=== PATIENT | male | born 1935 | race African-American/Black ===

== ENCOUNTER 2016-12-09 13:22 | Emergency (ER) | payer MEDICARE, BC ==
[~2016-12-09] VITALS: Ht 177.8 cm; Wt 75.7 kg
[~2016-12-09 13:22] MED LIST: ACET325T21 PO; ALLO100T PO; AMLO10TA4 PO; AMLO1CAP8 PO; ASPI-482 PO; DILT240C2 PO; FERR-26 PO; GLIP5TAB10 PO; HYDR25TA9 PO; Hydrocodone/Acetaminophen PO; LEVO50TA5 PO; LORA10TA3 PO; MELO15TA6 PO; OMEP20CA9 PO; SILD100T PO; SIMV20TA3 PO; TAMS0.4C2 PO; WARF5TAB PO
--- NOTE | 2016-12-09 14:06 | RAD ---
Portable chest, 12/09/2016: History: Dyspnea Comparison is made to a study from 06/27/2016. The heart size and pulmonary vascularity are normal. There is calcific plaquing of the aortic arch. No pulmonary infiltrates are seen. There is no evidence of pleural fluid. Mild spurring is present in the spine. IMPRESSION: No acute cardiopulmonary abnormality is detected.
[2016-12-09] MEDS ORDERED: SODI30SP NS (14:08)
--- NOTE | 2016-12-09 14:09 | PHYS DOC ---
Past Medical History Past Medical History: Arthritis, Diabetes-Type II Past Surgical History: Other Additional Past Surgical Histo: back, thyroid,KNEE Alcohol Use: None Drug Use: None Adult General Chief Complaint Chief Complaint: SHORTNESS OF BREATH HPI HPI Patient is a 81 year old male who presents with rhinorrhea, nasal congestion, sore throat (not neck pain), dry cough, and difficulty breathing through his nose. He feels there is a hard foreign body in his right nostril, but denies having put anything in the nostril. Denies difficulty breathing through his mouth. Denies fever or chills, myalgia, nausea or vomiting, diarrhea, headache , ear pain. Review of Systems Review of Systems Constitutional: Denies fever or chills [] Eyes: Denies change in visual acuity, redness, or eye pain [] HENT: Has nasal congestion and sore throat [] Respiratory: Has cough and shortness of breath [] Cardiovascular: No additional information not addressed in HPI [] GI: Denies abdominal pain, nausea, vomiting, bloody stools or diarrhea [] : Denies dysuria or hematuria [] Musculoskeletal: Denies back pain or joint pain [] Integument: Denies rash or skin lesions [] Neurologic: Denies headache, focal weakness or sensory changes [] Endocrine: Denies polyuria or polydipsia [] Allergies Allergies Allergies Coded Allergies Type Severity Reaction Last Updated Verified YONG Inhibitors Allergy Intermediate 10/07/14 Yes ARB-Angiotensin Receptor Antagonist Allergy Intermediate 10/07/14 Yes I S O L A T I O N *CONTACT* Allergy Unknown 07/13/16 Yes Physical Exam Physical Exam Constitutional: Well developed, well nourished, no acute distress, non-toxic appearance. [] HENT: Normocephalic, atraumatic, bilateral external ears normal, oropharynx moist, no oral exudates, nose with bilateral clear rhinorrhea and hyperemia. No nasal foreign body seen. [] Eyes: PERRLA, EOMI, conjunctiva normal, no discharge. [] Neck: Normal range of motion, no tenderness, supple, no stridor. [] Cardiovascular:Heart rate regular rhythm [] Lungs & Thorax: Bilateral breath sounds clear to auscultation [] Abdomen: Bowel sounds normal, soft, no tenderness. [] Skin: Warm, dry, no erythema, no rash. [] Back: Normal range of motion. [] Extremities: No tenderness, ROM intact, no edema. [] Neurologic: Alert and oriented X 3, normal motor function, normal sensory function, no focal deficits noted. [] Psychologic: Affect normal, judgement normal, mood normal. [] Current Patient Data Vital Signs Vital Signs Date Time Temp Pulse Resp B/P Pulse Ox O2 Delivery O2 Flow Rate FiO2 12/09/16 14:28 68 24 148/65 100 Room Air 12/09/16 13:28 97.6 97.6 Lab Values Laboratory Tests Test 12/09/16 13:46 Sodium Level 141mmol/L (136-145) Potassium Level 4.3mmol/L (3.5-5.1) Chloride Level 105mmol/L (98-107) Carbon Dioxide Level 29mmol/L (21-32) Anion Gap 7 (6-14) Blood Urea Nitrogen 29mg/dL (8-26) H Creatinine 1.9mg/dL (0.7-1.3) H Estimated GFR (Cockcroft-Gault) 41.2 Glucose Level 126mg/dL (70-99) H Calcium Level 8.9mg/dL (8.5-10.1) Laboratory Tests 12/09/16 13:46 EKG EKG EKG as interpreted by me as sinus rhythm with right bundle branch block, rate 67 , P-R 154, QTc 468, does not meet STEMI criteria, no ectopy Radiology/Procedures Radiology/Procedures Chest xray as interpreted by me with no acute cardiopulmonary disease process Course & Med Decision Making Course & Med Decision Making Workup is unremarkable. Signs and symptoms concerning for viral respiratory infection. Discussed supportive care. Return precautions given. He understands and agrees with plan. Dragon Disclaimer Dragon Disclaimer This electronic medical record was generated, in whole or in part, using a voice recognition dictation system. Departure Departure Impression: Primary Impression: Viral upper respiratory infection Disposition: 01 HOME, SELF-CARE Condition: STABLE Referrals: VINITA WOMACK MD (PCP) Patient Instructions: Upper Respiratory Infection, Adult, [id number] Additional Instructions: Use saline nasal spray to help with nasal congestion. Follow-up with your primary care doctor. Return for any concerns. Scripts Sodium Chloride (Saline Nasal [place])30 Ml Spray1-2 [place] NS Q2HR PRN nasal congestion #30 ML Prov:Leonardo MACARIO MD 12/09/16 Leonardo MACARIO MD Dec 09, 2016 14:08
[2016-12-09 14:13] LABS: CALCIUM 8.9 mg/dL (8.5-10.1); CREATININE 1.9 mg/dL (0.7-1.3); GFR 41.2; POTASSIUM 4.3 mmol/L (3.5-5.1)
[2016-12-09 14:28] VITALS: BP 148/65
--- NOTE | 2016-12-11 11:24 | EKG ---
[facility] [address] [place] [address] Test Date: 2016-12-09 Test Time: 13:38:36 Pat Name: HAIDER CORTES Department: Room: Gender: M Box Person: : 1935 Requested By: Leonardo MACARIO Order Number: [id number] Reading MD: Measurements Intervals [place] Rate: 67 P: -52 NE: 154 QRS: -78 QRSD: 160 T: 49 QT: 440 QTc: 468 Interpretive Statements SINUS RHYTHM ABNORMAL LEFT AXIS DEVIATION S1,S2,S3 PATTERN LEFT ANTERIOR FASCICULAR BLOCK NON SPECIFIC INTRAVENTRICULAR BLOCK RVH WITH REPOLARIZATION ABNORMALITY ABNORMAL ECG RI6.01 No previous ECG available for comparison
== END 2016-12-09 14:34 | disposition home or self-care (01) ==
LOC: ER 13:22
DX: J06.9 Acute upper respiratory infection, unspecified (principal); E11.9 Type 2 diabetes mellitus without complications; M19.90 Unspecified osteoarthritis, unspecified site; Z88.8 Allergy status to other drugs, medicaments and biological substances; Z91.041 Radiographic dye allergy status
CPT/HCPCS: 36415; 71010; 80048; 93005; 99285-25

== ENCOUNTER → 2017-04-11 | Outpatient (CLI) | payer MEDICARE, BC ==
[~2017-04-11] MED LIST changes: +BARIUM SULFATE 40% (APPLE) 148 GM PWD. PO ONE; +SODI30SP NS; +WARF-78 PO; -WARF5TAB PO
--- NOTE | 2017-04-11 14:23 | RAD ---
VIDEO SWALLOW STUDY Reason for Examination: DYSPHAGIA With the patient in the lateral projection, using video observation and recording, the patient was asked to swallow barium liquid, barium nectar, barium impregnated pudding, and chew and swallow barium impregnated fruit cocktail and cracker. Interpretation: A total of 2 minutes of fluoroscopy time were used. 0 fluoroscopic spot images. IMPRESSION: Flash penetration was seen during a thin barium swallow. No evidence of aspiration or deep penetration. Please refer to speech pathology notes for further details.
== END | disposition home or self-care (01) ==
LOC: RAD 12:35
PROVIDERS: ATTEND Otolaryngology
DX: R13.10 Dysphagia, unspecified (principal)
CPT/HCPCS: 74230; 92526; 92611; G8996; G8997; G8998

== ENCOUNTER → 2017-05-12 | Day surgery (SDC) | payer MEDICARE, BC ==
[~2017-05-12] MED LIST changes: -BARIUM SULFATE 40% (APPLE) 148 GM PWD. PO ONE; +IV RINGERS,LACTATED 1000ML 1,000 ML IV SCH; +LIDOCAINE 1% 1 ML SYRINGE. ID PRN; +MIDAZOLAM HCL/PF 2 MG/2 ML VIAL. IV PRN; +MIDAZOLAM HCL/PF 5 MG/5 ML VIAL. ONE; +fentaNYL PF VIAL 100 MCG/2 ML VIAL IV PRN; +fentaNYL PF VIAL 100 MCG/2 ML VIAL ONE
[2017-05-12 09:25] VITALS: BP 135/62
== END | disposition home or self-care (01) ==
LOC: SURG 06:55
PROVIDERS: ATTEND Internal Medicine Gastroenterology
DX: K22.2 Esophageal obstruction (principal); K29.50 Unspecified chronic gastritis without bleeding; E78.00 Pure hypercholesterolemia, unspecified; I10 Essential (primary) hypertension; K21.9 Gastro-esophageal reflux disease without esophagitis; M17.11 Unilateral primary osteoarthritis, right knee; E11.9 Type 2 diabetes mellitus without complications; E03.9 Hypothyroidism, unspecified; F17.200 Nicotine dependence, unspecified, uncomplicated; D64.9 Anemia, unspecified; Z86.69 Personal history of other diseases of the nervous system and sense organs; Z85.46 Personal history of malignant neoplasm of prostate; Z87.39 Personal history of other diseases of the musculoskeletal system and connective tissue; Z96.651 Presence of right artificial knee joint; Z86.39 Personal history of other endocrine, nutritional and metabolic disease; Z86.14 Personal history of Methicillin resistant Staphylococcus aureus infection; Z88.8 Allergy status to other drugs, medicaments and biological substances
CPT/HCPCS: 43235; 43450; 82962; J2250; J3010

== ENCOUNTER → 2017-08-29 | Outpatient (CLI) | payer MEDICARE, BC ==
[2017-05-12 09:25] VITALS: BP 135/62
[~2017-08-29] MED LIST changes: -IV RINGERS,LACTATED 1000ML 1,000 ML IV SCH; -LIDOCAINE 1% 1 ML SYRINGE. ID PRN; -MIDAZOLAM HCL/PF 2 MG/2 ML VIAL. IV PRN; -MIDAZOLAM HCL/PF 5 MG/5 ML VIAL. ONE; -fentaNYL PF VIAL 100 MCG/2 ML VIAL IV PRN; -fentaNYL PF VIAL 100 MCG/2 ML VIAL ONE
--- NOTE | 2017-08-29 15:19 | RAD ---
Left lower extremity bone length exam, 08/29/2017: History: Surgical planning for knee prosthesis AP views of the left femur and lower leg were obtained with skin markers placed laterally to facilitate measurements for surgical planning. This limited exam demonstrates severe degenerative change at the left knee joint with chondrocalcinosis. Moderate arterial calcifications are present.
--- NOTE | 2017-08-30 13:19 | RAD ---
MR of the left knee - Olson and Nephew protocol History: OLSON & NEPHEW KNEE, CHRONIC KNEE PAIN. Preoperative exam. Technique: Images are obtained in accordance with the standard Olson and Nephew protocol. Note this is not a diagnostic exam, but solely for the purpose of [employer] and [employer] medical imaging technician construction. Small joint effusion. Mild fluid dissecting along the posterior knee may be from a tiny Persaud's cyst. Mild soft tissue edema. Primary osteoarthritis is identified at all joint compartments. Degenerative tear of the medial meniscus. Probable lateral meniscal tear. Small soft tissue fluid collection at the anteromedial knee. Electronically signed by: Mega Amato MD (08/30/2017 1:16 PM) [id number]
== END | disposition home or self-care (01) ==
LOC: RAD 11:21
PROVIDERS: ATTEND Orthopaedic Surgery Sports Medicine
DX: Z01.818 Encounter for other preprocedural examination (principal); S83.242A Other tear of medial meniscus, current injury, left knee, initial encounter; M17.12 Unilateral primary osteoarthritis, left knee; X58.XXXA Exposure to other specified factors, initial encounter; Y93.89 Activity, other specified; Y92.89 Other specified places as the place of occurrence of the external cause; Y99.8 Other external cause status
CPT/HCPCS: 73721; 77073

== ENCOUNTER → 2017-08-31 | Outpatient (CLI) | payer MEDICARE, BC ==
[2017-05-12 09:25] VITALS: BP 135/62
--- NOTE | 2017-08-31 15:57 | CARD ---
APPROVED REPORT EXAM: Two-dimensional and M-mode echocardiogram with Doppler and color Doppler. Other Information Quality : FairAverageHR: 64bpm INDICATION Pre-Op 2D DIMENSIONS Left Atrium(2D)2.7 (1.6-4.0cm)IVSd1.2 (0.7-1.1cm) Aortic Root(2D)4.1 (2.0-3.7cm)LVDd5.5 (3.9-5.9cm) LVOT Diameter2.1 (1.8-2.4cm)PWd1.2 (0.7-1.1cm) LVDs4.0 (2.5-4.0cm)FS (%) 26.3 % SV74.3 mlLVEF(%)51.0 (>50%) Aortic Valve AoV Peak Rudi.184.1cm/sAoV VTI42.3cm AO Peak GR.13.6mmHgAO Mean GR.8mmHg Mitral Valve MV E Xxlukjlz92.4cm/sMV E Peak Gr.142mmHg MV DECEL [id number] A Toslcwpw21.7cm/s MV AAB55cvI/A Ratio0.9 MVA (PHT)3.52cm2 Tricuspid Valve TR P. Ogzqfsqo671wb/sRAP TIGUEKCY8kzKa TR Peak Gr.52daBzPADR70lyPb LEFT VENTRICLE The left ventricle is normal size. There is normal left ventricular wall thickness. The systolic func tion is mildly impaired. EF 40-45% The posterolateral segment is mildly hypokinetic. Remainder of the LV is mildly globally hypokinietic. Septal motion suggestive of conduction defect. There is no evide nce of an apical thrombus. RIGHT VENTRICLE The right ventricle is normal size. The right ventricular systolic function is normal. ATRIA The left atrium size is normal. The right atrium size is normal. The interatrial septum is intact wit h no evidence for an atrial septal defect or patent foramen ovale as noted on 2-D or Doppler imaging. AORTIC VALVE The aortic valve is moderately calcified and not well visualized. Doppler and Color Flow revealed mod erate aortic regurgitation. There is no aortic stenosis. MITRAL VALVE The mitral valve is mildly thickened. A borderline mitral valve prolapse is present. Doppler and [place] r-flow revealed moderate mitral regurgitation. TRICUSPID VALVE The tricuspid valve leaflets are thickened , but open well. Doppler and Color Flow revealed mild tric uspid regurgitation. There is mild pulmonary hypertension. The PA pressure was estimated at 42 mmHg. PULMONIC VALVE The pulmonic valve is not visualized very well. Doppler and Color Flow revealed trivial pulmonic valv ular regurgitation. GREAT VESSELS Mildly dilated aortic root. Mildly dilated ascending aorta. 4.2 cm. PERICARDIAL EFFUSION There is no pleural effusion. There is no evidence of significant pericardial effusion. Critical Notification Critical Value: No <Conclusion> The systolic function is mildly impaired. EF 40-45% The posterolateral segment is mildly hypokinetic. Remainder of the LV is mildly globally hypokinietic . Septal motion suggestive of conduction defect. Doppler and Color Flow revealed moderate aortic regurgitation. Doppler and Color-flow revealed moderate mitral regurgitation. Mildly dilated aortic root. Mildly dilated ascending aorta. 4.2 cm.
== END | disposition home or self-care (01) ==
LOC: ECHO 07:48
PROVIDERS: ATTEND Internal Medicine Cardiovascular Disease
DX: I08.3 Combined rheumatic disorders of mitral, aortic and tricuspid valves (principal); I77.810 Thoracic aortic ectasia; I27.20 Pulmonary hypertension, unspecified
CPT/HCPCS: 93306

== ENCOUNTER → 2017-09-12 | Outpatient (CLI) | payer MEDICARE, BC ==
[2017-09-12 12:36] LABS: ADD MAN DIFF? NO
[2017-09-12 12:39] LABS: HEMATOCRIT 34.4 % (39.0-53.0); HEMOGLOBIN 11.3 g/dL (13.0-17.5); MEAN CORPUSCULAR HEMOGLOBIN 31 pg (25-35); MEAN CORPUSCULAR VOLUME 94 fL (79-100); RED BLOOD COUNT 3.65 x10^6/uL (4.30-5.70); WHITE BLOOD COUNT 3.7 x10^3/uL (4.0-11.0)
[2017-09-12 12:40] LABS: BASO % 1 % (0-3); EOS % 3 % (0-3); LYMPH # 1.4 x10^3/uL (1.0-4.8); LYMPH % 38 % (24-48); MEAN CORPUSCULAR HGB CONC 33 g/dL (31-37); MONO % 11 % (0-9); NEUT % 48 % (31-73); PLATELET COUNT 131 x10^3/uL (140-400)
[2017-09-12 12:49] LABS: INR 1.1 (0.8-1.1); PARTIAL THROMBOPLASTIN TIME 28 SEC (24-38); PROTHROMBIN TIME PATIENT 13.4 SEC (11.7-14.0)
[2017-09-12 12:50] LABS: BILIRUBIN,URINE NEGATIVE (NEG); GLUCOSE,URINE NEGATIVE (NEG); NITRITE,URINE NEGATIVE (NEG); PH,URINE 5.5; PROTEIN,URINE NEGATIVE (NEG-TRACE); UROBILINOGEN,URINE 0.2 mg/dL (0.2 mg/dL)
[2017-09-12 12:51] LABS: ALBUMIN 3.9 g/dL (3.4-5.0); ANION GAP 8 (6-14); BLOOD UREA NITROGEN 31 mg/dL (8-26); CALCIUM 8.4 mg/dL (8.5-10.1); CARBON DIOXIDE 26 mmol/L (21-32); CHLORIDE 106 mmol/L (98-107); CREATININE 2.2 mg/dL (0.7-1.3); GFR 34.7; GLUCOSE 102 mg/dL (70-99); POTASSIUM 4.7 mmol/L (3.5-5.1); SODIUM 140 mmol/L (136-145)
[2017-09-12 12:58] LABS: SQUAMOUS EPITHELIAL CELL,UR FEW /LPF
[2017-09-12 12:59] LABS: BACTERIA,URINE FEW /HPF (0-FEW); WBC,URINE OCC /HPF (0-4)
[2017-09-12 14:13] LABS: SEDIMENTATION RATE 10 (0-15)
[2017-09-12 21:17] LABS: MRSA BY PCR Negative (Negative)
== END | disposition home or self-care (01) ==
LOC: SURGPAT 11:34
DX: Z01.818 Encounter for other preprocedural examination (principal); M17.12 Unilateral primary osteoarthritis, left knee; Z96.652 Presence of left artificial knee joint
CPT/HCPCS: 36415; 80048; 81001; 82040; 83036; 85025; 85610; 85651; 85730; 87641

== ENCOUNTER 2017-09-25 05:43 | Inpatient (IN) | payer MEDICARE, BC ==
[2017-09-25 06:58] LABS: POC GLUCOSE 81 mg/dL (70-99)
[2017-09-25] MEDS ORDERED: HYDROmorphone 2 MG/ML VIAL IV (07:00)
[2017-09-25] MEDS ORDERED: PROCHLORPERAZINE 10 MG/2 ML VIAL. IV ×2 (07:00→07:45)
[2017-09-25] MEDS ORDERED: LIDOCAINE 1% PF 2 ML VIAL. ID (07:00)
[2017-09-25] MEDS ORDERED: MORPHINE SULFATE 2 MG/ML DISP.SYRIN. IV ×2 (07:00→07:45)
[2017-09-25] MEDS ORDERED: fentaNYL PF VIAL 100 MCG/2 ML VIAL IV ×4 (07:00→07:45)
[2017-09-25] MEDS: ACETAMINOPHEN 500 MG TABLET PO (07:00)
[2017-09-25] MEDS: MELOXICAM 7.5 MG TABLET PO (07:00)
[2017-09-25] MEDS ORDERED: ONDANSETRON PF 4 MG/2 ML VIAL. IV (07:00)
[2017-09-25] MEDS: IV RINGERS,LACTATED 1000ML 1,000 ML IV (07:06)
[2017-09-25] MEDS ORDERED: ONDANSETRON PF 4 MG/2 ML VIAL. (07:17)
[2017-09-25] MEDS ORDERED: LIDOCAINE 2% PF Vial for OR 5 ML VIAL. (07:17)
[2017-09-25] MEDS ORDERED: PROPOFOL 20 ML IV (07:17)
[2017-09-25] MEDS ORDERED: FAMOTIDINE 20 MG/2 ML VIAL (07:17)
[2017-09-25] MEDS ORDERED: DEXAMETHASONE SOD PHOS 20 MG/5 ML VIAL. (07:17)
[2017-09-25] MEDS ORDERED: fentaNYL PF VIAL 100 MCG/2 ML VIAL (07:18)
[2017-09-25] MEDS ORDERED: ROCURONIUM 50 MG/5 ML VIAL. (07:18)
[2017-09-25] MEDS ORDERED: METOCLOPRAMIDE HCL 10 MG/2 ML VIAL. IV (07:45)
[2017-09-25] MEDS ORDERED: PROCHLORPERAZINE 5 MG TABLET. PO (07:45)
[2017-09-25] MEDS ORDERED: traMADol 50 MG TABLET PO (07:45)
[2017-09-25] MEDS ORDERED: CALCIUM CARBONATE 500 MG TAB.CHEW PO (07:45)
[2017-09-25] MEDS ORDERED: MORPHINE SULFATE 10 MG/ML VIAL. IV (07:45)
[2017-09-25] MEDS ORDERED: ACETAMINOPHEN 325 MG TABLET. PO (07:45)
[2017-09-25] MEDS ORDERED: oxyCODONE/APAP 7.5/325 1 TAB TABLET PO (07:45)
[2017-09-25] MEDS ORDERED: DEXTROSE 50% 25 GM / 50ML DISP.SYRIN. IV ×2 (07:45→08:00)
[2017-09-25] MEDS ORDERED: MORPHINE SULFATE 4 MG/ML DISP.SYRIN. IV ×2 (07:45)
[2017-09-25] MEDS ORDERED: ZOLPIDEM 5 MG TABLET. PO (07:45)
[2017-09-25] MEDS ORDERED: oxyCODONE/APAP 5/325 1 TAB TABLET PO (07:45)
[2017-09-25] MEDS ORDERED: 0.9 % SODIUM CHLORIDE 10 ML DISP.SYRIN. IV (07:45)
[2017-09-25] MEDS ORDERED: diphenhydrAMINE 50 MG/ML VIAL IV (07:45)
[2017-09-25] MEDS ORDERED: HYDROcodone/APAP 10/325 1 TAB TABLET PO (07:45)
[2017-09-25] MEDS ORDERED: GLYCOPYRROLATE 1 MG/5 ML VIAL. (07:53)
[2017-09-25] MEDS ORDERED: ePHEDrine PF IN SALINE 50 MG/5 ML DISP.SYRIN IV (07:58)
[2017-09-25] MEDS: INSULIN ASPART 300 UNITS/3 ML INSULN.PEN SQ ×3 (08:00→17:16)
[2017-09-25] MEDS: MORPHINE SULFATE 5 MG, KETOROLAC 30 MG, ROPIVacaine 0.5% PF 60 ML, EPINEPHrine 0.5 MG i... INT ART (08:06)
[2017-09-25] MEDS ORDERED: NEOSTIGMINE METHYLSULFATE 5 MG/5 ML SYRINGE. (08:59)
[2017-09-25] MEDS ORDERED: SEVOFLURANE 61 TO 120 MINUTES. IH (08:59)
[2017-09-25] MEDS ORDERED: TAMSULOSIN 0.4 MG CAP.ER.24H. PO (09:00)
[2017-09-25] MEDS ORDERED: FERROUS SULFATE 325 MG TABLET. PO (09:00)
[2017-09-25] MEDS ORDERED: NALOXONE 0.4 MG/ML VIAL. (10:10)
[2017-09-25 10:15] LABS: POC GLUCOSE 137 mg/dL (70-99)
[2017-09-25] MEDS: amLODIPine BESYLATE 5 MG TABLET PO (12:00)
[2017-09-25] MEDS: LISINOPRIL 10 MG TABLET PO (12:00)
[2017-09-25 13:21] LABS: INR 1.2 (0.8-1.1); PROTHROMBIN TIME PATIENT 14.7 SEC (11.7-14.0)
[2017-09-25] MEDS ORDERED: ceFAZolin SODIUM 1 GM in IV DEXTROSE 5% 50 ML IV (13:30)
[2017-09-25] MEDS: IV DEXTROSE 5 %-0.45 % NACL 1,000 ML IV ×2 (15:09→23:00)
[2017-09-25] MEDS: ceFAZolin SODIUM IV Push 1 GM VIAL. IVP ×2 (15:09→20:47)
[2017-09-25] MEDS: WARFARIN 7.5 MG TABLET. PO (15:09)
[2017-09-25] MEDS: glipiZIDE 5 MG TABLET PO (17:15)
[2017-09-25] MEDS: FERROUS SULFATE 325 MG TABLET. PO (17:15)
[2017-09-25] MEDS ORDERED: FLUTICASONE NASAL SPRAY TP (18:45)
[2017-09-25] MEDS ORDERED: PROPYLENE GLYCOL OU (19:00)
[2017-09-25] MEDS: SIMVASTATIN 20 MG TABLET PO (20:47)
[2017-09-25] MEDS: CELECOXIB 200 MG CAPSULE. PO (20:47)
[2017-09-25] MEDS: PROPYLENE GLYCOL OU (22:09)
[2017-09-26] MEDS: ceFAZolin SODIUM IV Push 1 GM VIAL. IVP (02:33)
[2017-09-26] MEDS: LEVOTHYROXINE 50 MCG TABLET PO (05:08)
[2017-09-26] MEDS: HYDROcodone/APAP 7.5/325MG 1 TAB TABLET PO ×3 (05:08→17:20)
[2017-09-26 05:57] LABS: POC GLUCOSE 211 mg/dL (70-99)
[2017-09-26 05:59] LABS: HEMATOCRIT 25.3 % (39.0-53.0); HEMOGLOBIN 8.3 g/dL (13.0-17.5); MEAN CORPUSCULAR HGB CONC 33 g/dL (31-37)
[2017-09-26] MEDS ORDERED: MAGNESIUM HYDROXIDE 2,400 MG/30 ML ORAL.SUSP. PO (06:00)
[2017-09-26 06:06] LABS: INR 1.4 (0.8-1.1); PROTHROMBIN TIME PATIENT 16.6 SEC (11.7-14.0)
[2017-09-26 07:01] LABS: POC GLUCOSE 128 mg/dL (70-99)
[2017-09-26] MEDS: PANTOPRAZOLE 40 MG TABLET.DR. PO (07:21)
[2017-09-26] MEDS: PROPYLENE GLYCOL OU ×4 (07:50→21:19)
[2017-09-26] MEDS: ALLOPURINOL 100 MG TABLET. PO (07:50)
[2017-09-26] MEDS: FLUTICASONE NASAL SPRAY TP (07:50)
[2017-09-26] MEDS: CELECOXIB 200 MG CAPSULE. PO ×2 (07:51→21:18)
[2017-09-26] MEDS: glipiZIDE 5 MG TABLET PO ×2 (07:51→17:12)
[2017-09-26] MEDS: SENNOSIDES/DOCUSATE 8.6/50MG TABLET. PO (07:51)
[2017-09-26] MEDS: MULTIVITAMIN with MINERAL TABLET. PO (07:52)
[2017-09-26] MEDS: FERROUS SULFATE 325 MG TABLET. PO ×2 (07:52→10:39)
[2017-09-26] MEDS: hydroCHLOROthiazide 25 MG TABLET PO (07:54)
[2017-09-26] MEDS: amLODIPine BESYLATE 5 MG TABLET PO (07:56)
[2017-09-26] MEDS: TAMSULOSIN 0.4 MG CAP.ER.24H. PO (07:56)
[2017-09-26] MEDS: LISINOPRIL 10 MG TABLET PO (07:57)
[2017-09-26] MEDS: IV DEXTROSE 5 %-0.45 % NACL 1,000 ML IV ×2 (07:58→20:13)
[2017-09-26] MEDS: INSULIN ASPART 300 UNITS/3 ML INSULN.PEN SQ ×3 (07:58→17:15)
[2017-09-26 11:04] LABS: POC GLUCOSE 120 mg/dL (70-99)
[2017-09-26] MEDS ORDERED: BISACODYL 10 MG SUPP.RECT. PR (16:00)
[2017-09-26 16:59] LABS: POC GLUCOSE 157 mg/dL (70-99)
[2017-09-26] MEDS: WARFARIN 5 MG TABLET. PO (17:13)
[2017-09-26] MEDS: SIMVASTATIN 20 MG TABLET PO (21:18)
[2017-09-27 02:33] LABS: POC GLUCOSE 117 mg/dL (70-99)
[2017-09-27] MEDS: HYDROcodone/APAP 7.5/325MG 1 TAB TABLET PO (06:16)
[2017-09-27] MEDS: PANTOPRAZOLE 40 MG TABLET.DR. PO (06:16)
[2017-09-27] MEDS: LEVOTHYROXINE 50 MCG TABLET PO (06:16)
[2017-09-27 07:17] LABS: POC GLUCOSE 71 mg/dL (70-99)
[2017-09-27 07:53] LABS: INR 1.7 (0.8-1.1)
[2017-09-27] MEDS: INSULIN ASPART 300 UNITS/3 ML INSULN.PEN SQ ×3 (08:00→17:00)
[2017-09-27] MEDS: SENNOSIDES/DOCUSATE 8.6/50MG TABLET. PO (08:20)
[2017-09-27] MEDS: FERROUS SULFATE 325 MG TABLET. PO ×2 (08:20→17:44)
[2017-09-27] MEDS: CELECOXIB 200 MG CAPSULE. PO ×2 (08:20→22:06)
[2017-09-27] MEDS: hydroCHLOROthiazide 25 MG TABLET PO (08:21)
[2017-09-27] MEDS: ALLOPURINOL 100 MG TABLET. PO (08:21)
[2017-09-27] MEDS: LISINOPRIL 10 MG TABLET PO (08:21)
[2017-09-27] MEDS: MULTIVITAMIN with MINERAL TABLET. PO (08:21)
[2017-09-27] MEDS: amLODIPine BESYLATE 5 MG TABLET PO (08:21)
[2017-09-27] MEDS: TAMSULOSIN 0.4 MG CAP.ER.24H. PO (08:21)
[2017-09-27] MEDS: FLUTICASONE NASAL SPRAY TP (08:22)
[2017-09-27] MEDS: traMADol 50 MG TABLET PO (08:22)
[2017-09-27] MEDS: glipiZIDE 5 MG TABLET PO ×2 (08:22→17:00)
[2017-09-27] MEDS: PROPYLENE GLYCOL OU ×4 (08:23→21:00)
[2017-09-27 08:33] LABS: HEMATOCRIT 23.5 % (39.0-53.0); HEMOGLOBIN 7.7 g/dL (13.0-17.5); MEAN CORPUSCULAR HGB CONC 33 g/dL (31-37)
[2017-09-27 11:30] LABS: POC GLUCOSE 83 mg/dL (70-99)
[2017-09-27] MEDS: POLYETHYLENE GLYCOL 3350 17 GM PACKET. PO ×2 (12:14→21:00)
[2017-09-27 17:30] LABS: POC GLUCOSE 56 mg/dL (70-99)
[2017-09-27 17:30] LABS: POC GLUCOSE 84 mg/dL (70-99)
[2017-09-27 17:30] LABS: POC GLUCOSE 67 mg/dL (70-99)
[2017-09-27] MEDS: WARFARIN 3 MG TABLET. PO (17:44)
[2017-09-27 20:49] LABS: POC GLUCOSE 65 mg/dL (70-99)
[2017-09-27] MEDS: SIMVASTATIN 20 MG TABLET PO (22:06)
[2017-09-28 04:44] LABS: INR 1.7 (0.8-1.1); PROTHROMBIN TIME PATIENT 19.2 SEC (11.7-14.0)
[2017-09-28 04:46] LABS: HEMATOCRIT 22.8 % (39.0-53.0); HEMOGLOBIN 7.7 g/dL (13.0-17.5); MEAN CORPUSCULAR HGB CONC 34 g/dL (31-37)
[2017-09-28 06:48] LABS: POC GLUCOSE 78 mg/dL (70-99)
[2017-09-28] MEDS: INSULIN ASPART 300 UNITS/3 ML INSULN.PEN SQ ×2 (07:23→12:00)
[2017-09-28] MEDS: PANTOPRAZOLE 40 MG TABLET.DR. PO (07:28)
[2017-09-28] MEDS: LEVOTHYROXINE 50 MCG TABLET PO (07:29)
[2017-09-28] MEDS: POLYETHYLENE GLYCOL 3350 17 GM PACKET. PO (08:09)
[2017-09-28] MEDS: CELECOXIB 200 MG CAPSULE. PO (08:10)
[2017-09-28] MEDS: PROPYLENE GLYCOL OU (08:10)
[2017-09-28] MEDS: MULTIVITAMIN with MINERAL TABLET. PO (08:10)
[2017-09-28] MEDS: FERROUS SULFATE 325 MG TABLET. PO (08:10)
[2017-09-28] MEDS: ALLOPURINOL 100 MG TABLET. PO (08:10)
[2017-09-28] MEDS: hydroCHLOROthiazide 25 MG TABLET PO (08:10)
[2017-09-28] MEDS: glipiZIDE 5 MG TABLET PO (08:12)
[2017-09-28] MEDS: FLUTICASONE NASAL SPRAY TP (08:13)
[2017-09-28] MEDS: amLODIPine BESYLATE 5 MG TABLET PO (08:14)
[2017-09-28] MEDS: SENNOSIDES/DOCUSATE 8.6/50MG TABLET. PO (08:15)
[2017-09-28] MEDS: LISINOPRIL 10 MG TABLET PO (08:15)
[2017-09-28 11:50] LABS: POC GLUCOSE 92 mg/dL (70-99)
[2017-09-28] MEDS: TAMSULOSIN 0.4 MG CAP.ER.24H. PO (12:06)
[2017-09-28] MEDS: WARFARIN 3 MG TABLET. PO (12:06)
[2017-09-28] MEDS: HYDROcodone/APAP 7.5/325MG 1 TAB TABLET PO (12:06)
[2017-09-29] MEDS ORDERED: WARFARIN 3 MG TABLET. PO (16:00)
== END 2017-09-28 13:00 | DRG 470 ==
LOC: OPSVCIP 05:43 → 4 SOUTHEST 11:30
PROVIDERS: Orthopaedic Surgery Sports Medicine
PROC: 0SRD0J9 Replacement of Left Knee Joint with Synthetic Substitute, Cemented, Open Approach (ICD-10-PCS; principal; 2017-09-25 07:30)
PROC: 5A09457 Assistance with Respiratory Ventilation, 24-96 Consecutive Hours, Continuous Positive Airway Pressure (ICD-10-PCS; 2017-09-25 07:30)
DX: M17.12 Unilateral primary osteoarthritis, left knee (principal); E11.22 Type 2 diabetes mellitus with diabetic chronic kidney disease; I13.0 Hypertensive heart and chronic kidney disease with heart failure and stage 1 through stage 4 chronic kidney disease, or unspecified chronic kidney disease; Z96.651 Presence of right artificial knee joint; N18.3 Chronic kidney disease, stage 3 (moderate); E78.5 Hyperlipidemia, unspecified; E03.9 Hypothyroidism, unspecified; Z88.8 Allergy status to other drugs, medicaments and biological substances; Z79.4 Long term (current) use of insulin; Z85.46 Personal history of malignant neoplasm of prostate
CPT/HCPCS: 36415; 73560; 82962; 85014; 85018; 85610; 86850; 86900; 86901; 88305; 88311; 94660; 97110-GP; 97116-GP; 97150-GP; 97162-GP; 97166-GO; 97530-GP; 97535-GO; C1713; J0171; J0690; J1100; J1815; J1885; J2270; J2405; J2704; J2710; J2795; J3010; J3490; J7030; J7120; S0028

== ENCOUNTER → 2019-05-28 | Outpatient (CLI) | payer MEDICARE, BC ==
[2019-05-23 10:25] VITALS: BP 157/65
[~2019-05-28] MED LIST changes: -AMLO1CAP8 PO; +AMLO1CAP9 PO; +CARB1DRO12 OP; -FERR-26 PO; +FERR325T14 PO; +FLUT16SP NS; +HYDR-2145 PO; -HYDR25TA9 PO; +OMEP20CA10 PO; -OMEP20CA9 PO; +PROP10DR9 OP; +WARF3TAB50 PO
--- NOTE | 2019-05-28 11:33 | CARD ---
MR#: [id number] Date of Study: 05/28/2019 Ordering Physician: XIOMARA MAR, Referring Physician: XIOMARA MAR, Tech: Amarilis Chacon NATASHA APPROVED REPORT EXAM: Two-dimensional and M-mode echocardiogram with Doppler and color Doppler. Other Information Quality : GoodHR: 68bpm Rhythm : NSR INDICATION Mitral Valve Disease 2D DIMENSIONS RVDd3.2 (2.9-3.5cm)Left Atrium(2D)3.1 (1.6-4.0cm) IVSd1.2 (0.7-1.1cm)Aortic Root(2D)3.8 (2.0-3.7cm) LVDd5.4 (3.9-5.9cm)LVOT Diameter2.3 (1.8-2.4cm) PWd0.9 (0.7-1.1cm)LVDs3.9 (2.5-4.0cm) FS (%) 28.1 %SV75.4 ml LVEF(%)53.8 (>50%) M-Mode DIMENSIONS Left Atrium(MM)3.44 (2.5-4.0cm)Aortic Root3.99 (2.2-3.7cm) Aortic Valve AoV Peak Rudi.170.5cm/sAoV VTI37.2cm AO Peak GR.11.6mmHgLVOT Peak Rudi.92.7cm/s AO Mean GR.6mmHgAVA (VMAX)2.35cm2 SHILPA (VTI)2.43ek0WT P 1/2 [id number] Mitral Valve MV E Xfudfdrw23.6cm/sMV E Peak Gr.109mmHg MV DECEL [id number] A Hcpjbdyb584.8cm/s MV E Mean Gr.3mmHgE/A Ratio0.7 Pulmonary Valve PV Peak Ukmsbtev620.4cm/s Tricuspid Valve TR P. Ytydhcwg812ge/sRAP UNMKTWZS7anCi TR Peak Gr.61pqThTFFQ92owDw LEFT VENTRICLE The left ventricle is normal size. Proximal septal thickening is noted. The left ventricular systolic function is normal. The Ejection Fraction is 55%. There is normal LV segmental wall motion. Transmit ral Doppler flow pattern is Grade I-abnormal relaxation pattern. RIGHT VENTRICLE The right ventricle is normal size. There is normal right ventricular wall thickness. The right ventr icular systolic function is normal. ATRIA The left atrium size is normal. The right atrium size is normal. The interatrial septum is intact wit h no evidence for an atrial septal defect or patent foramen ovale as noted on 2-D or Doppler imaging. AORTIC VALVE The aortic valve is trileaflet. The aortic valve is mildly calcified. Doppler and Color Flow revealed mild eccentric aortic regurgitation. There is no significant aortic valvular stenosis. MITRAL VALVE The mitral valve is thickened but opens well. There is no evidence of mitral valve prolapse. There is no mitral valve stenosis. Doppler and Color-flow revealed moderate mitral regurgitation. TRICUSPID VALVE The tricuspid valve is normal in structure and function. Doppler and Color Flow revealed mild tricusp id regurgitation. The PA pressure was estimated at 25 mmHg. There is no tricuspid valve prolapse or v egetation. There is no tricuspid valve stenosis. PULMONIC VALVE The pulmonary valve is normal in structure and function. Doppler and Color Flow revealed trace pulmon ic valvular regurgitation. There is no pulmonic valvular stenosis. GREAT VESSELS The aortic root is mildly enlarged. The ascending aorta is Mildly dilated at 4.3cm. The IVC is normal in size and collapses >50% with inspiration. PERICARDIAL EFFUSION There is no evidence of significant pericardial effusion. Critical Notification Critical Value: No <Conclusion> The left ventricular systolic function is normal. The Ejection Fraction is 55%. There is normal LV segmental wall motion. Transmitral Doppler flow pattern is Grade I-abnormal relaxation pattern. Mild eccentric aortic regurgitation. Moderate mitral regurgitation. Mild tricuspid regurgitation. The PA pressure was estimated at 25 mmHg. The ascending aorta is Mildly dilated at 4.3cm. There is no evidence of significant pericardial effusion. Signed by : Leonel Patino, Electronically Approved : 05/28/2019 11:32:48
== END | disposition home or self-care (01) ==
LOC: ECHO 09:03
PROVIDERS: ATTEND Internal Medicine Cardiovascular Disease
DX: I08.3 Combined rheumatic disorders of mitral, aortic and tricuspid valves (principal); I77.89 Other specified disorders of arteries and arterioles
CPT/HCPCS: 93306

== ENCOUNTER → 2019-05-29 | Outpatient (CLI) | payer MEDICARE, BC ==
[2019-05-23 10:25] VITALS: BP 157/65
--- NOTE | 2019-05-29 13:46 | KCIC ---
CHEST PA LATERAL Clinical indications: Cough. Nonsmoker. COMPARISON: December 09, 2016. Findings: Hyperinflation is seen consistent with COPD. No acute lung infiltrate or pleural effusion or pulmonary edema or lung mass or pneumothorax is seen. The heart size, pulmonary vasculature, mediastinum and both nahum are unremarkable. The osseous structures appear intact. Impression: COPD. No acute radiographic abnormality is seen. Electronically signed by: Catracho Reilly MD (05/29/2019 1:43 PM) [place] [id number]
== END | disposition home or self-care (01) ==
LOC: KCIC 10:39
PROVIDERS: ATTEND Family Medicine
DX: J44.9 Chronic obstructive pulmonary disease, unspecified (principal)
CPT/HCPCS: 71046

== ENCOUNTER → 2019-07-10 | Outpatient (CLI) | payer MEDICARE, BC ==
[2019-07-04 10:04] VITALS: BP 131/63
--- NOTE | 2019-07-10 16:55 | KCIC ---
EXAM: CT ABDOMEN/PELVIS WITHOUT CONTRAST. HISTORY: Hematuria. TECHNIQUE: Computed tomography of the abdomen and pelvis was performed without intravenous contrast. COMPARISON: None. FINDINGS: Lung windows through the visualized portions of the bases reveal mild atelectasis. There are atherosclerotic calcifications of the coronary arteries. Bone windows reveal no suspicious lesions. There is ankylosis without instrumentation from L4 through S1. Laminectomy changes are suspected at each level. Both sacroiliac joints are also fused. Central canal stenosis is severe at L3-4. The liver, gallbladder, pancreas, spleen and adrenal glands are unremarkable without contrast. There are no pathologically enlarged abdominal or pelvic lymph nodes. Left inguinal lymph nodes are asymmetrically prominent measuring up to 1.7 cm long axis. The cecum is inverted into the right upper quadrant. There is no evidence of appendicitis. There is no small bowel obstruction. Fiducial markers are suspected within the prostate, which is moderately enlarged. There is moderate bladder wall thickening without clear focal mass. A hyperdense mass at the left renal upper pole measures 1.8 x 1.4 cm. This may represent a proteinaceous/hemorrhagic cyst but is indeterminate. A benign cysts is suspected at the right lower pole measuring 1.2 cm. No clear masses are appreciated on the right without contrast there are no renal or ureteral calculi. IMPRESSION: 1. A 1.8 cm mass at the left renal upper pole may represent a proteinaceous/hemorrhagic cyst but is indeterminate without contrast. Renal ultrasound is suggested to differentiate cystic from solid lesions versus CT or MRI with and without contrast. 2. No renal or ureteral calculi. 3. Diffuse bladder wall thickening indicates chronic outlet obstruction or inflammation. Correlate with urinalysis. 4. Prominent left inguinal lymph nodes. Correlate for left lower extremity inflammation or other causes. 5. Severe central canal stenosis at L3-4. *One or more of the following individualized dose reduction techniques were utilized for this examination: 1. Automated exposure control. 2. Adjustment of the mA and/or kV according to patient size. 3. Use of iterative reconstruction technique. Electronically signed by: Neil Mayo MD (07/10/2019 4:52 PM) [facility]
== END | disposition home or self-care (01) ==
LOC: KCIC CT 13:04
PROVIDERS: ATTEND Family Medicine
DX: N28.89 Other specified disorders of kidney and ureter (principal); J98.11 Atelectasis; I25.10 Atherosclerotic heart disease of native coronary artery without angina pectoris; M48.061 Spinal stenosis, lumbar region without neurogenic claudication
CPT/HCPCS: 74176

== ENCOUNTER → 2019-07-19 | Outpatient (CLI) | payer MEDICARE, BC ==
[2019-07-18 10:08] VITALS: BP 135/62
[~2019-07-19] MED LIST changes: +SIMV20TA18 PO; -SIMV20TA3 PO
--- NOTE | 2019-07-19 17:44 | KCIC ---
RENAL COMPLETE BILATERAL History: Left renal mass on CT Comparison: Noncontrast CT exam 07/10/2019. Findings: Multiple sonographic images of the kidneys and retroperitoneal structures are submitted. Right kidney measured 10.3 x 4 x 4.6 cm. Left kidney measured 10.6 x 5 x 3.6 cm. Poorly demonstrated, there is a focus of slightly different echogenicity of the superior left kidney about 1.7 x 1.6 x 1.5 cm although difficult to visualize on color Doppler imaging. There are apparently internal echoes present. There is segmental visualization of the proximal inferior vena cava although otherwise obscured by bowel gas. Abdominal aortic caliber is within normal limits up to 2.7 cm proximally. Urinary bladder is not well-visualized as patient voided prior to exam. Impression: 1. There is a focus of different echogenicity of the superior left kidney apparently corresponding with the CT findings although this is somewhat difficult to characterize given bowel gas and location. Somewhat complicated cyst is favored. However if patient is able to perform, pre and postcontrast CT is recommended. Electronically signed by: River Tapia MD (07/19/2019 5:41 PM) [id number]
== END | disposition home or self-care (01) ==
LOC: KCIC US 13:40
PROVIDERS: ATTEND Family Medicine
DX: N28.89 Other specified disorders of kidney and ureter (principal)
CPT/HCPCS: 76770

== ENCOUNTER 2019-12-09 11:42 | Inpatient (IN) | payer MEDICARE, BC ==
[~2019-12-09] VITALS: Ht 175.3 cm; Wt 104.4 kg
[~2019-12-09 11:42] MED LIST changes: -OMEP20CA10 PO; +OMEP20CA16 PO
[2019-12-09] MEDS ORDERED: IV NORMAL SALINE 1000ML BAG 1,000 ML IV SCH (12:01)
[2019-12-09] MEDS ORDERED: ACETAMINOPHEN 325 MG TABLET. PO ONE (12:15)
--- NOTE | 2019-12-09 12:36 | RAD ---
AP chest. HISTORY: Weakness, fever, diarrhea AP view was taken of the chest. Heart is upper normal in size. There is no effusion. There are hazy bilateral infiltrates mainly in the lung bases which are new compared to a study from May 2019. IMPRESSION: 1. Hazy bibasilar infiltrates. Electronically signed by: Saran Donovan MD (12/09/2019 12:34 PM) [id number]
--- NOTE | 2019-12-09 12:51 | PHYS DOC ---
Past Medical History Past Medical History: Arthritis, Diabetes-Type II Past Surgical History: Other Additional Past Surgical Histo: back, thyroid,KNEE Smoking Status: Never Smoker Alcohol Use: None Drug Use: None Adult General Chief Complaint Chief Complaint: WEAKNESS/GENERALIZED HPI HPI Patient is a 84 year old male with history of hypertension, dyslipidemia, diabetes mellitus, hypothyroidism, cardiac arrhythmia on Coumadin who presents with complaint of weakness. Patient complaining of one episode of diarrhea and generalized weakness but his daughter stated he has had nonbloody diarrhea for the last 3 days. Patient denies cough and congestion, chest pain, shortness of breath, fever or chills, nausea and vomiting, abdominal pain, sick contact. Patient lives at home by himself. Patient had temperature of 100.7 at arrival to ER. Review of Systems Review of Systems Constitutional: Denies fever or chills [] Eyes: Denies change in visual acuity, redness, or eye pain [] HENT: Denies nasal congestion or sore throat [] Respiratory: Denies cough or shortness of breath [] Cardiovascular: No additional information not addressed in HPI [] GI: Denies abdominal pain, nausea, vomiting, bloody stools, report diarrhea [] : Denies dysuria or hematuria [] Musculoskeletal: Denies back pain or joint pain [] Integument: Denies rash or skin lesions [] Neurologic: Denies headache, focal weakness or sensory changes [] Endocrine: Denies polyuria or polydipsia [] All other systems were reviewed and found to be within normal limits, except as documented in this note. Current Medications Current Medications Current Medications Medications (Trade) Dose Ordered Sig/Aga Start Time Stop Time Status Last Admin Dose Admin Acetaminophen (Tylenol) 1,000 mg 1X ONCE 12/09/19 12:15 12/09/19 12:16 DC Ceftriaxone Sodium (Rocephin) 1 gm 1X ONCE 12/09/19 13:30 12/09/19 13:31 DC 12/09/19 13:49 1 GM Dextrose (Dextrose 50%-Water Syringe) 12.5 gm 1X ONCE 12/09/19 13:45 12/09/19 13:46 DC 12/09/19 13:48 12.5 GM Sodium Polystyrene Sulfonate (Kayexalate) 15 gm 1X ONCE 12/09/19 13:45 12/09/19 13:46 DC 12/09/19 14:35 15 GM Sodium Chloride 1,000 ml @ 150 mls/hr Q6H40M 12/09/19 13:46 12/10/19 13:45 Vancomycin HCl 250 ml @ 250 mls/hr 1X ONCE 12/09/19 13:30 12/09/19 14:29 DC 12/09/19 13:49 250 MLS/HR Allergies Allergies Allergies Coded Allergies Type Severity Reaction Last Updated Verified I S O L A T I O N *CONTACT* Allergy Unknown 12/05/19 Yes YONG Inhibitors Adverse Reaction Intermediate 12/05/19 Yes ARB-Angiotensin Receptor Antagonist Adverse Reaction Intermediate 12/05/19 Yes Physical Exam Physical Exam Constitutional: Well nourished, mild distress, non-toxic appearance, febrile. [] HENT: Normocephalic, atraumatic. Eyes: PERRLA, EOMI, conjunctiva normal, no discharge. [] Neck: Normal range of motion, no tenderness, supple, no stridor. [] Cardiovascular:Heart rate regular rhythm, no murmur [] Lungs & Thorax: No respiratory distress, decrease of air movement bilaterally, no rhonchi or wheezing. Abdomen: Bowel sounds normal, soft, no tenderness, no masses, no pulsatile masses. [] Skin: Warm, dry, no erythema, no rash. [] Back: No tenderness, no CVA tenderness. [] Extremities: No tenderness, no cyanosis, no clubbing, ROM intact, no edema. [] Neurologic: Alert and oriented X 2, no focal deficits noted. [] Psychologic: Affect normal, judgement normal, mood normal. [] Current Patient Data Vital Signs Vital Signs Date Time Temp Pulse Resp B/P (MAP) Pulse Ox O2 Delivery O2 Flow Rate FiO2 12/09/19 11:45 100.7 82 17 135/62 (86) 97 Room Air 100.7 Lab Values Laboratory Tests Test 12/09/19 12:40 12/09/19 12:45 12/09/19 13:05 Influenza Type A Antigen Negative (NEGATIVE) Influenza Type B Antigen Negative (NEGATIVE) White Blood Count 4.3 x10^3/uL (4.0-11.0) Red Blood Count 4.25 x10^6/uL (4.30-5.70) L Hemoglobin 12.5 g/dL (13.0-17.5) L Hematocrit 38.2 % (39.0-53.0) L Mean Corpuscular Volume 90 fL (79-100) Mean Corpuscular Hemoglobin 29 pg (25-35) Mean Corpuscular Hemoglobin Concent 33 g/dL (31-37) Red Cell Distribution Width 16.1 % (11.5-14.5) H Platelet Count 119 x10^3/uL (140-400) L Neutrophils (%) (Auto) 65 % (31-73) Lymphocytes (%) (Auto) 20 % (24-48) L Monocytes (%) (Auto) 15 % (0-9) H Eosinophils (%) (Auto) 0 % (0-3) Basophils (%) (Auto) 0 % (0-3) Neutrophils # (Auto) 2.8 x10^3/uL (1.8-7.7) Lymphocytes # (Auto) 0.8 x10^3/uL (1.0-4.8) L Monocytes # (Auto) 0.6 x10^3/uL (0.0-1.1) Eosinophils # (Auto) 0.0 x10^3/uL (0.0-0.7) Basophils # (Auto) 0.0 x10^3/uL (0.0-0.2) Prothrombin Time 13.0 SEC (11.7-14.0) Prothrombin Time INR 1.0 (0.8-1.1) Activated Partial Thromboplast Time 36 SEC (24-38) Sodium Level 133 mmol/L (136-145) L Potassium Level 5.2 mmol/L (3.5-5.1) H Chloride Level 99 mmol/L (98-107) Carbon Dioxide Level 23 mmol/L (21-32) Anion Gap 11 (6-14) Blood Urea Nitrogen 59 mg/dL (8-26) H Creatinine 3.3 mg/dL (0.7-1.3) H Estimated GFR (Cockcroft-Gault) 21.6 BUN/Creatinine Ratio 18 (6-20) Glucose Level 49 mg/dL (70-99) L Lactic Acid Level 1.3 mmol/L (0.4-2.0) Calcium Level 8.7 mg/dL (8.5-10.1) Magnesium Level 2.5 mg/dL (1.8-2.4) H Total Bilirubin 0.4 mg/dL (0.2-1.0) Aspartate Amino Transferase (AST) 42 U/L (15-37) H Alanine Aminotransferase (ALT) 12 U/L (16-63) L Alkaline Phosphatase 70 U/L (46-116) Creatine Kinase 588 U/L (39-308) H Troponin I Quantitative < 0.017 ng/mL (0.000-0.055) ZP-Jce-X-Type Natriuretic Peptide 1762 pg/mL (0-449) H Total Protein 7.8 g/dL (6.4-8.2) Albumin 3.5 g/dL (3.4-5.0) Albumin/Globulin Ratio 0.8 (1.0-1.7) L Lipase 425 U/L (73-393) H Urine Collection Type U cath Urine Color Yellow Urine Clarity Clear Urine pH 5.0 (<5.0-8.0) Urine Specific [place] 1.020 (1.000-1.030) Urine Protein 30 mg/dL (NEG-TRACE) Urine Glucose (UA) Negative mg/dL (NEG) Urine Ketones (Stick) Negative mg/dL (NEG) Urine Blood Moderate (NEG) Urine Nitrite Negative (NEG) Urine Bilirubin Negative (NEG) Urine Urobilinogen Dipstick 1.0 mg/dL (0.2 mg/dL) Urine Leukocyte Esterase Negative (NEG) Urine RBC /HPF (0-2) Urine WBC 1-4 /HPF (0-4) Urine Squamous Epithelial Cells Occ /LPF Urine Amorphous Sediment Present /HPF Urine Bacteria Few /HPF (0-FEW) Laboratory Tests 12/09/19 12:45 Laboratory Tests 12/09/19 12:45 EKG EKG EKG interpreted by me. EKG at 1201 showed atrial fibrillation with heart rate of 74, abnormal right superior axis deviation, left anterior fascicular block, nonspecific intraventricular block, no acute ST and T wave elevation. Radiology/Procedures Radiology/Procedures [facility] [address] [place] [address] IMAGING REPORT Signed PATIENT: HAIDER CORTES ACCOUNT: [id number] : 1935 LOCATION: ER AGE: 84 SEX: M EXAM STATUS: REG ER ORD. PHYSICIAN: JUANITA SHARMA MD REASON: Generalized weakness and fever generalized weaknesweakness, fever, diarrhea PROCEDURE: PORTABLE CHEST 1V AP chest. HISTORY: Weakness, fever, diarrhea AP view was taken of the chest. Heart is upper normal in size. There is no effusion. There are hazy bilateral infiltrates mainly in the lung bases which are new compared to a study from May 2019. IMPRESSION: 1. Hazy bibasilar infiltrates. Electronically signed by: Saran Donovan MD (12/09/2019 12:34 PM) [id number] DICTATED and SIGNED BY: SARAN DONOVAN MD DATE: 12/09/19 1234 Course & Med Decision Making Course & Med Decision Making Pertinent Labs and Imaging studies reviewed. (See chart for details) Evaluation of patient in ER showed 84-year-old male patient with multiple comorbidity with complaining of diarrhea and generalized weakness. Patient had fever of 100.7 in ER without having any episodes of diarrhea. Chest x-ray showed bibasilar infiltrate. Patient treated with IV fluids and antibiotic but lactic acid was not elevated. Patient was suspicious for COVID 19 and pulmonology consult was requested. Patient had blood sugar of 49 and treated with half amp of D50 with blood sugar of 45 after 30 minutes and treated with 1 amp of D50 with blood sugar of 63. PPE was used by me and other staff involving in the care of the patient. Patient requiring admission for further evaluation and treatment. Discussed with Dr. Powers who is in agreement with admission. Discussed findings and plan with patient and family, who acknowledge understanding and agreement. Dragon Disclaimer Dragon Disclaimer This electronic medical record was generated, in whole or in part, using a voice recognition dictation system. Departure Departure Impression: Primary Impression: Bilateral pneumonia Additional Impressions: Weakness Fever Renal insufficiency Suspected 2019 novel coronavirus infection Hypoglycemia Disposition: 09 ADMITTED INPATIENT (At 1325) Admitting Physician: INESSA (Dr. Powers accepted admission at 1324) Condition: IMPROVED Referrals: DELANO LLANES MD (PCP) Critical Care Time Critical care time was 60 minutes exclusive of procedures. Problem Qualifiers Primary Impression: Bilateral pneumonia Pneumonia type: due to unspecified organism Lung location: unspecified part of lung Qualified Codes: J18.9 - Pneumonia, unspecified organism Additional Impressions: Fever Fever type: unspecified Qualified Codes: R50.9 - Fever, unspecified JUANITA SHARMA MD Dec 09, 2019 12:51
[2019-12-09 13:10] LABS: BASO % 0 % (0-3); EOS % 0 % (0-3); HEMATOCRIT 38.2 % (39.0-53.0); HEMOGLOBIN 12.5 g/dL (13.0-17.5); LYMPH # 0.8 x10^3/uL (1.0-4.8); LYMPH % 20 % (24-48); MEAN CORPUSCULAR HEMOGLOBIN 29 pg (25-35); MEAN CORPUSCULAR HGB CONC 33 g/dL (31-37); MEAN CORPUSCULAR VOLUME 90 fL (79-100); MONO # 0.6 x10^3/uL (0.0-1.1); MONO % 15 % (0-9); NEUT # 2.8 x10^3/uL (1.8-7.7); NEUT % 65 % (31-73); PLATELET COUNT 119 x10^3/uL (140-400); RED BLOOD COUNT 4.25 x10^6/uL (4.30-5.70); RED CELL DISTRIBUTION WIDTH 16.1 % (11.5-14.5); WHITE BLOOD COUNT 4.3 x10^3/uL (4.0-11.0)
[2019-12-09] MEDS ORDERED: VANCOMYCIN 1GM IVPB FOR OMNI 250 ML IV ONE (13:30)
[2019-12-09] MEDS ORDERED: cefTRIAXone IV Push 1 GM VIAL. IVP ONE (13:30)
[2019-12-09 13:31] LABS: CALCIUM 8.7 mg/dL (8.5-10.1); CREATININE 3.3 mg/dL (0.7-1.3); GFR 21.6; POTASSIUM 5.2 mmol/L (3.5-5.1)
[2019-12-09 13:37] LABS: BILIRUBIN,URINE NEGATIVE (NEG); CLARITY,URINE CLEAR; COLOR,URINE YELLOW; NITRITE,URINE NEGATIVE (NEG); PROTEIN,URINE 30 mg/dL (NEG-TRACE)
[2019-12-09 13:37] LABS: ALBUMIN 3.5 g/dL (3.4-5.0); ALBUMIN/GLOBULIN RATIO 0.8 (1.0-1.7); MAGNESIUM 2.5 mg/dL (1.8-2.4); TOTAL BILIRUBIN 0.4 mg/dL (0.2-1.0); TOTAL PROTEIN 7.8 g/dL (6.4-8.2)
--- NOTE | 2019-12-09 13:40 | EKG ---
[facility] [address] [place] [address] Test Date: 2019-12-09 Test Time: 12:01:23 Pat Name: HAIDER CORTES Department: Room: Gender: M [employer] Sales Consultant: : 1935 Requested By: JUANITA SHARMA Order Number: [id number] Reading MD: Elliot Espinoza MD Measurements Intervals [place] Rate: 74 P: RI: QRS: -99 QRSD: 146 T: 122 QT: 388 QTc: 436 Interpretive Statements PROBABLE SR LBBB PAC'S Electronically Signed On 12-12-2019 11:12:51 CDT by Elliot Espinoza MD
[2019-12-09] MEDS ORDERED: DEXTROSE 50% 25 GM / 50ML DISP.SYRIN. IV ONE ×3 (13:45→22:30)
[2019-12-09] MEDS ORDERED: SODIUM POLYSTYRENE SULFON/SORB 15 GM/60 ML ORAL.SUSP PO ONE (13:45)
[2019-12-09 14:11] LABS: BACTERIA,URINE FEW /HPF (0-FEW); SQUAMOUS EPITHELIAL CELL,UR OCC /LPF
[2019-12-09 14:12] LABS: AMORPHOUS SEDIMENT,UR PRESENT /HPF
[2019-12-09 14:12] LABS: INFLUENZA A PATIENT NEGATIVE (NEGATIVE); INFLUENZA B PATIENT NEGATIVE (NEGATIVE)
[2019-12-09] MEDS ORDERED: ACETAMINOPHEN 500 MG TABLET PO PRN (15:30)
[2019-12-09] MEDS: ACETAMINOPHEN 500 MG TABLET PO PRN (16:21)
--- NOTE | 2019-12-09 16:46 | HP ---
ADMIT DATE: 12/09/2019 CHIEF COMPLAINT: Weakness. HISTORY OF PRESENT ILLNESS: The patient is a pleasant elderly male who presented to the ER with weakness. He also has some associated shortness of breath that has been going on for a couple of days. I discussed the case with ER physician. It appears that the patient has bilateral pneumonia and his labs are also showing anemia, hyponatremia, hyperkalemia and hypoglycemia at 45. We are going to admit the patient and give IV antibiotics and consult Dr. Gupta. PAST MEDICAL HISTORY: Arthritis, diabetes, back surgery, knee surgery and thyroid surgery. ALLERGIES: YONG INHIBITORS AND ARBS. FAMILY HISTORY: Coronary artery disease. SOCIAL HISTORY: Does not drink, smoke or take drugs. MEDICATIONS: Reviewed, please refer to the MRAD. REVIEW OF SYSTEMS: Unable to obtain. The patient is obtunded. PHYSICAL EXAMINATION: VITALS: Within normal limits and are stable. GENERAL: No apparent distress. Alert and oriented. HEENT: Normal cephalic atraumatic, external auditory canals are patent. EYES: Extraocular muscles are intact, pupils are equally round and reactive to light and accommodation. MUSKULOSKELETAL: Well developed, well nourished, good range of motion. ENDOCRINE: No thyromegaly was palpated. LYMPHATICS: No cervical chain or axillary nodes were noted. HEMATOPOIETIC: No bruising. NECK: Supple, no JVD, no thyromegaly was noted. LUNGS: Clear to auscultation in all lung sarabia without rhonchi or wheezing. HEART: RRR, S1, S2 present. Peripheral pulses intact, no obvious murmurs were noted. ABDOMEN: Soft, nontender. Positive bowel sounds no organomegaly, normal bowel sounds. EXTREMITIES: Without any cyanosis, clubbing, or edema. Pedal pulses intact, Homans sign is negative. NEUROLOGIC: He is obtunded, does not really wake up. PSYCHIATRIC: Normal affect, normal mood. Stable. SKIN: No ulcerations or rashes, good skin turgor, no jaundice. VASCULAR: Good capillary refill, neurovascular bundle appears to be intact. LABORATORY DATA: Flu testing is negative. Electrolytes: Sodium 133, potassium 5.2, chloride 99, bicarbonate 59, creatinine 3.3 and glucose 45. Influenza testing is negative. Urinalysis is negative. Chest x-ray shows bilateral pneumonia. ASSESSMENT AND PLAN: Pneumonia in an elderly male who also has mental status change, electrolyte disturbances and acute on chronic renal failure. The patient will be admitted. We will consider checking for COVID-19 if okay with Pulmonary, consult Pulmonary. IV antibiotics, beta agonist, IV fluids, he got 1 dose of Kayexalate, p.r.n. amps of dextrose, ceftriaxone IV and vancomycin IV. PROGNOSIS: Guarded. TOTAL TIME: 32 minutes. EDIE CRISTOBAL DO DR: ANA/helen JOB#: [id number] / [id number]
[2019-12-09] MEDS: IV NORMAL SALINE 1000ML BAG 1,000 ML IV SCH ×2 (17:48→22:40)
[2019-12-09 18:55] VITALS: BP 134/60
[2019-12-09 20:23] VITALS: BP 129/75
[2019-12-10] VITALS (7 sets, daily range): BP systolic 97–159; BP diastolic 49–71
[2019-12-10] MEDS: DEXTROSE 50% 25 GM / 50ML DISP.SYRIN. IV PRN ×3 (01:19→22:47)
[2019-12-10] MEDS: IV NORMAL SALINE 1000ML BAG 1,000 ML IV SCH ×2 (03:20→09:00)
[2019-12-10] MEDS: ACETAMINOPHEN 500 MG TABLET PO PRN ×2 (06:12→18:19)
--- NOTE | 2019-12-10 12:08 | PDOC ---
[facility] PROGRESS NOTE Chief Complaint Chief Complaint Pneumonia Chronic renal failure Debility Weakness Fevers Arthritis, diabetes, back surgery, knee surgery and thyroid surgery. History of Present Illness History of Present Illness [id number] Patient seen and examined Chart reviewed discussed with RN Spoke with his daughter Nayeli Vitals/I&O Vitals/I&O: Vital Signs Date Time Temp Pulse Resp B/P (MAP) Pulse Ox O2 Delivery O2 Flow Rate FiO2 12/10/19 10:41 98.2 64 22 133/60 (84) 94 Room Air 98.2 I & O 12/09/19 12/09/19 12/10/19 15:00 23:00 07:00 Intake Total 1250 ml 1060 ml Output Total 1 ml 2 ml Balance 1249 ml 1058 ml Physical Exam General: Cooperative Heart: Regular rate, Normal S1 Lungs: Wheezing Abdomen: Soft Extremities: No clubbing, No cyanosis Skin: No rashes, No breakdown Labs Labs: Laboratory Tests Test 12/09/19 12:40 12/09/19 12:45 12/09/19 13:05 12/09/19 14:58 Influenza Type A Antigen Negative (NEGATIVE) Influenza Type B Antigen Negative (NEGATIVE) White Blood Count 4.3 x10^3/uL (4.0-11.0) Red Blood Count 4.25 x10^6/uL (4.30-5.70) Hemoglobin 12.5 g/dL (13.0-17.5) Hematocrit 38.2 % (39.0-53.0) Mean Corpuscular Volume 90 fL (79-100) Mean Corpuscular Hemoglobin 29 pg (25-35) Mean Corpuscular Hemoglobin Concent 33 g/dL (31-37) Red Cell Distribution Width 16.1 % (11.5-14.5) Platelet Count 119 x10^3/uL (140-400) Neutrophils (%) (Auto) 65 % (31-73) Lymphocytes (%) (Auto) 20 % (24-48) Monocytes (%) (Auto) 15 % (0-9) Eosinophils (%) (Auto) 0 % (0-3) Basophils (%) (Auto) 0 % (0-3) Neutrophils # (Auto) 2.8 x10^3/uL (1.8-7.7) Lymphocytes # (Auto) 0.8 x10^3/uL (1.0-4.8) Monocytes # (Auto) 0.6 x10^3/uL (0.0-1.1) Eosinophils # (Auto) 0.0 x10^3/uL (0.0-0.7) Basophils # (Auto) 0.0 x10^3/uL (0.0-0.2) Prothrombin Time 13.0 SEC (11.7-14.0) Prothromb Time International Ratio 1.0 (0.8-1.1) Activated Partial Thromboplast Time 36 SEC (24-38) Sodium Level 133 mmol/L (136-145) Potassium Level 5.2 mmol/L (3.5-5.1) Chloride Level 99 mmol/L (98-107) Carbon Dioxide Level 23 mmol/L (21-32) Anion Gap 11 (6-14) Blood Urea Nitrogen 59 mg/dL (8-26) Creatinine 3.3 mg/dL (0.7-1.3) Estimated GFR (Cockcroft-Gault) 21.6 BUN/Creatinine Ratio 18 (6-20) Glucose Level 49 mg/dL (70-99) Lactic Acid Level 1.3 mmol/L (0.4-2.0) Calcium Level 8.7 mg/dL (8.5-10.1) Magnesium Level 2.5 mg/dL (1.8-2.4) Total Bilirubin 0.4 mg/dL (0.2-1.0) Aspartate Amino Transf (AST/SGOT) 42 U/L (15-37) Alanine Aminotransferase (ALT/SGPT) 12 U/L (16-63) Alkaline Phosphatase 70 U/L (46-116) Creatine Kinase 588 U/L (39-308) Troponin I Quantitative < 0.017 ng/mL (0.000-0.055) RK-Trg-G-Type Natriuretic Peptide 1762 pg/mL (0-449) Total Protein 7.8 g/dL (6.4-8.2) Albumin 3.5 g/dL (3.4-5.0) Albumin/Globulin Ratio 0.8 (1.0-1.7) Lipase 425 U/L (73-393) Urine Collection Type U cath Urine Color Yellow Urine Clarity Clear Urine pH 5.0 (<5.0-8.0) Urine Specific [place] 1.020 (1.000-1.030) Urine Protein 30 mg/dL (NEG-TRACE) Urine Glucose (UA) Negative mg/dL (NEG) Urine Ketones (Stick) Negative mg/dL (NEG) Urine Blood Moderate (NEG) Urine Nitrite Negative (NEG) Urine Bilirubin Negative (NEG) Urine Urobilinogen Dipstick 1.0 mg/dL (0.2 mg/dL) Urine Leukocyte Esterase Negative (NEG) Urine RBC /HPF (0-2) Urine WBC 1-4 /HPF (0-4) Urine Squamous Epithelial Cells Occ /LPF Urine Amorphous Sediment Present /HPF Urine Bacteria Few /HPF (0-FEW) Glucose (Fingerstick) 45 mg/dL (70-99) Test 12/09/19 16:18 12/09/19 17:45 12/09/19 22:21 12/09/19 22:44 Glucose (Fingerstick) 60 mg/dL (70-99) 82 mg/dL (70-99) 43 mg/dL (70-99) 156 mg/dL (70-99) Test 12/10/19 00:20 12/10/19 01:14 12/10/19 01:32 12/10/19 03:50 Glucose (Fingerstick) 60 mg/dL (70-99) 47 mg/dL (70-99) 185 mg/dL (70-99) 59 mg/dL (70-99) Test 12/10/19 05:56 12/10/19 07:26 12/10/19 11:37 Glucose (Fingerstick) 75 mg/dL (70-99) 111 mg/dL (70-99) 120 mg/dL (70-99) Assessment and Plan Assessmemt and Plan Problems Medical Problems: (1) Bilateral pneumonia Status: Acute (2) Fever Status: Acute (3) Hypoglycemia Status: Acute (4) Renal insufficiency Status: Acute (5) Suspected 2019 novel coronavirus infection Status: Acute (6) Weakness Status: Acute Pneumonia Chronic renal failure Debility Weakness Fevers Arthritis, diabetes, back surgery, knee surgery and thyroid surgery. Plan IV antibiotics Await further input from pulmonary and nephrology Beta agonist O2 Home meds DVT prophylaxis Full code Prognosis long-term guarded Discharge disposition pending Comment Review of Relevant I have reviewed the following items sammie (where applicable) has been applied. Medications: Current Medications Medications (Trade) Dose Ordered Sig/Aga Route PRN Reason Start Time Stop Time Status Last Admin Dose Admin Ceftriaxone Sodium (Rocephin) 1 gm 1X ONCE IVP 12/09/19 13:30 12/09/19 13:31 DC 12/09/19 13:49 Vancomycin HCl 250 ml @ 250 mls/hr 1X ONCE IV 12/09/19 13:30 12/09/19 14:29 DC 12/09/19 13:49 Dextrose (Dextrose 50%-Water Syringe) 12.5 gm 1X ONCE IV 12/09/19 13:45 12/09/19 13:46 DC 12/09/19 13:48 Sodium Polystyrene Sulfonate (Kayexalate) 15 gm 1X ONCE PO 12/09/19 13:45 12/09/19 13:46 DC 12/09/19 14:35 Sodium Chloride 1,000 ml @ 150 mls/hr Q6H40M IV 12/09/19 13:46 12/10/19 13:45 12/10/19 09:00 Dextrose (Dextrose 50%-Water Syringe) 25 gm 1X ONCE IV 12/09/19 15:00 12/09/19 15:02 DC 12/09/19 15:09 Acetaminophen (Tylenol) 1,000 mg PRN Q6HRS PRN PO FEVER 12/09/19 15:30 12/10/19 06:12 Dextrose (Dextrose 50%-Water Syringe) 25 gm 1X ONCE IV 12/09/19 22:30 12/09/19 22:31 DC 12/09/19 22:38 Dextrose (Dextrose 50%-Water Syringe) 12.5 gm PRN Q15MIN PRN IV SEE COMMENTS 12/10/19 00:30 12/10/19 03:54 EDIE CRISTOBAL III DO Dec 10, 2019 12:07
--- NOTE | 2019-12-10 12:45 | PDOC2 ---
CONSULT Date of Consult Date of Consult DATE: 12/10/19 TIME: 12:32 Reason for Consult Reason for Consult: BIA Source Source: Chart review History of Present Illness Reason for Visit: Hx Obtained from chart review- Unable to Obtain Hx from Pt- poor historian, Patient is a 84 year old aa male with history of hypertension, diabetes mellitus, hypothyroidism, cardiac arrhythmia on Coumadin who presents with complaint of weakness. Patient complaining of one episode of diarrhea and generalized weakness but his daughter stated he has had nonbloody diarrhea for the last 3 days. Patient denies cough and congestion, chest pain, shortness of breath, fever or chills, nausea and vomiting, abdominal pain, sick contact. Patient lives at home by himself. Patient had temperature of 100.7 at arrival to ER. Past Medical History Cardiovascular: CHF, HTN, Hyperlipidemia, Valve insufficiency, Other Pulmonary: No pertinent hx CENTRAL NERVOUS SYSTEM: Other GI: GERD Heme/Onc: Anemia NOS, Cancer Hepatobiliary: No pertinent hx Psych: No pertinent hx Musculoskeletal: Other Rheumatologic: Gout Infectious disease: No pertinent hx Renal/: Chronic renal insuff, Prostate Ca. Endocrine: Diabetes, Hypothyroidism Past Surgical History Past Surgical History: Other Family History Family History Non contributory Family History: Other Social History ALCOHOL: none Drugs: None Lives: Alone Domestic Violence: Neg Current Problem List Problem List Problems Medical Problems: (1) Bilateral pneumonia Status: Acute (2) Fever Status: Acute (3) Hypoglycemia Status: Acute (4) Renal insufficiency Status: Acute (5) Suspected 2019 novel coronavirus infection Status: Acute (6) Weakness Status: Acute Current Medications Current Medications Current Medications Acetaminophen (Tylenol) 1,000 mg 1X ONCE PO ; Start 12/09/19 at 12:15; Stop 12/09/19 at 12:16; Status DC Sodium Chloride 1,000 ml @ 1,000 mls/hr Q1H IV Last administered on 12/09/19at 13:48; Start 12/09/19 at 12:01; Stop 12/09/19 at 13:00; Status DC Ceftriaxone Sodium (Rocephin) 1 gm 1X ONCE IVP Last administered on 12/09/19at 13:49; Start 12/09/19 at 13:30; Stop 12/09/19 at 13:31; Status DC Vancomycin HCl 250 ml @ 250 mls/hr 1X ONCE IV Last administered on 12/09/19at 13:49; Start 12/09/19 at 13:30; Stop 12/09/19 at 14:29; Status DC Dextrose (Dextrose 50%-Water Syringe) 12.5 gm 1X ONCE IV Last administered on 12/09/19at 13:48; Start 12/09/19 at 13:45; Stop 12/09/19 at 13:46; Status DC Sodium Polystyrene Sulfonate (Kayexalate) 15 gm 1X ONCE PO Last administered on 12/09/19at 14:35; Start 12/09/19 at 13:45; Stop 12/09/19 at 13:46; Status DC Sodium Chloride 1,000 ml @ 150 mls/hr Q6H40M IV Last administered on 12/10/19at 09:00; Start 12/09/19 at 13:46; Stop 12/10/19 at 13:45 Dextrose (Dextrose 50%-Water Syringe) 25 gm 1X ONCE IV Last administered on 12/09/19at 15:09; Start 12/09/19 at 15:00; Stop 12/09/19 at 15:02; Status DC Acetaminophen (Tylenol) 1,000 mg PRN Q6HRS PRN PO FEVER Last administered on at 06:12; Start 12/09/19 at 15:30 Acetaminophen (Tylenol) 1,000 mg PRN Q6HRS PRN PO FEVER; Start 12/09/19 at 15:30; Stop 12/09/19 at 18:00; Status DC Dextrose (Dextrose 50%-Water Syringe) 25 gm 1X ONCE IV Last administered on 12/09/19at 22:38; Start 12/09/19 at 22:30; Stop 12/09/19 at 22:31; Status DC Dextrose (Dextrose 50%-Water Syringe) 12.5 gm PRN Q15MIN PRN IV SEE COMMENTS Last administered on 12/10/19at 03:54; Start 12/10/19 at 00:30 Active Scripts Active Reported Warfarin Sodium 3 Mg Tablet 1 Tab PO 1X Fluticasone Propionate Nasal [place] (Fluticasone Propionate) 16 Gm [place].susp 2 [place] NS DAILY last dos this am next dose tomorrow am (monday) Lubricant Eye Drops (Propylene Glycol) 10 Ml Drops 10 Ml OP [id number] last dose after lunch next dose with supper/ bedtime Lubricant Eye Drops (Carboxymethylcellulose Sodium) 1 Each [place]perette 1 Each OP HS last dose last evening next dosetonight provided his own Glipizide 5 Mg Tablet 5 Mg PO DAILYWSUP last dose last night next dose tonight with supper Glipizide 5 Mg Tablet 2.5 Mg PO DAILY last dose this am (next dose tomorrow am monday) Loratadine 10 Mg Tablet 10 Mg PO last dose this am next dose tomorrow am(monday) Omeprazole 20 Mg Capsule.dr 20 Mg PO DAILY last dose this am next dose tomorrow am (monday) Ferrous Sulfate 325 Mg Tablet 1 Tab PO DAILY last dose this am next dose tonight Aspir 81 (Aspirin) 81 Mg Tablet.dr 81 Mg PO DAILY Amlodipine-Benazepril 5-10 Mg (Amlodipine Besylate/Benazepril) 1 Each Capsule 1 Cap PO DAILY last dos this am next dose tomorrow am (monday) Tamsulosin Hcl 0.4 Mg Cap.er.24h 1 Cap PO DAILY last dose this am next dose tomorrow am (monday) Simvastatin 20 Mg Tablet 1 Tab PO QHS last dose last evening next dose tonight Hydrochlorothiazide Tablet (Hydrochlorothiazide) 25 Mg Tablet 1 Tab PO DAILY last dos this am next dose tomorrow am (monday) Allopurinol 100 Mg Tablet 1 Tab PO DAILY last dose this am next dose tomorrow on monday Levothyroxine Sodium 50 Mcg Tablet 1 Tab PO DAILY last dose this am next dose tomorrow am (monday) Allergies Allergies: Coded Allergies: I S O L A T I O N *CONTACT* (Verified Allergy, Unknown, 12/05/19) mrsa YONG Inhibitors (Verified Adverse Reaction, Intermediate, 12/05/19) Cough/throat irritation ARB-Angiotensin Receptor Antagonist (Verified Adverse Reaction, Intermediate, 12/05/19) Cough/throat irritation ROS Review of System Per HPI Physical Exam Physical Exam GENERAL: No apparent distress. Alert HEENT:OM dryish NECK: Supple, LUNGS: Clear to auscultation, decreased at bases, Non labored HEART: RRR, S1, S2 present. ABDOMEN: Soft, nontender. EXTREMITIES: Without any cyanosis, clubbing, or edema. 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 Dinh's care, he didint keep fu appt earlier this year , Last seen by Dr Dinh in Apr 2019 HypoNatremia- Mild , IVF , Monitor HyperKalemia- Mild at presentation, No labs ordered this am Renal Cyst- Ct abdomen 2018- 1.8 cm mass at the left renal upper pole may represent a proteinaceous/hemorrhagic cyst but is indeterminate without contrast. Renal ultrasound is suggested to differentiate cystic from solid lesions versus CT or MRI with and without contrast. Check Renal US Diffuse bladder wall thickening indicates chronic outlet obstruction or inflammation. Correlate with urinalysis. Labs Labs Laboratory Tests Test 12/09/19 12:40 12/09/19 12:45 12/09/19 13:05 12/09/19 14:58 Influenza Type A Antigen Negative (NEGATIVE) Influenza Type B Antigen Negative (NEGATIVE) White Blood Count 4.3 x10^3/uL (4.0-11.0) Red Blood Count 4.25 x10^6/uL (4.30-5.70) Hemoglobin 12.5 g/dL (13.0-17.5) Hematocrit 38.2 % (39.0-53.0) Mean Corpuscular Volume 90 fL (79-100) Mean Corpuscular Hemoglobin 29 pg (25-35) Mean Corpuscular Hemoglobin Concent 33 g/dL (31-37) Red Cell Distribution Width 16.1 % (11.5-14.5) Platelet Count 119 x10^3/uL (140-400) Neutrophils (%) (Auto) 65 % (31-73) Lymphocytes (%) (Auto) 20 % (24-48) Monocytes (%) (Auto) 15 % (0-9) Eosinophils (%) (Auto) 0 % (0-3) Basophils (%) (Auto) 0 % (0-3) Neutrophils # (Auto) 2.8 x10^3/uL (1.8-7.7) Lymphocytes # (Auto) 0.8 x10^3/uL (1.0-4.8) Monocytes # (Auto) 0.6 x10^3/uL (0.0-1.1) Eosinophils # (Auto) 0.0 x10^3/uL (0.0-0.7) Basophils # (Auto) 0.0 x10^3/uL (0.0-0.2) Prothrombin Time 13.0 SEC (11.7-14.0) Prothromb Time International Ratio 1.0 (0.8-1.1) Activated Partial Thromboplast Time 36 SEC (24-38) Sodium Level 133 mmol/L (136-145) Potassium Level 5.2 mmol/L (3.5-5.1) Chloride Level 99 mmol/L (98-107) Carbon Dioxide Level 23 mmol/L (21-32) Anion Gap 11 (6-14) Blood Urea Nitrogen 59 mg/dL (8-26) Creatinine 3.3 mg/dL (0.7-1.3) Estimated GFR (Cockcroft-Gault) 21.6 BUN/Creatinine Ratio 18 (6-20) Glucose Level 49 mg/dL (70-99) Lactic Acid Level 1.3 mmol/L (0.4-2.0) Calcium Level 8.7 mg/dL (8.5-10.1) Magnesium Level 2.5 mg/dL (1.8-2.4) Total Bilirubin 0.4 mg/dL (0.2-1.0) Aspartate Amino Transf (AST/SGOT) 42 U/L (15-37) Alanine Aminotransferase (ALT/SGPT) 12 U/L (16-63) Alkaline Phosphatase 70 U/L (46-116) Creatine Kinase 588 U/L (39-308) Troponin I Quantitative < 0.017 ng/mL (0.000-0.055) AB-Ixd-H-Type Natriuretic Peptide 1762 pg/mL (0-449) Total Protein 7.8 g/dL (6.4-8.2) Albumin 3.5 g/dL (3.4-5.0) Albumin/Globulin Ratio 0.8 (1.0-1.7) Lipase 425 U/L (73-393) Urine Collection Type U cath Urine Color Yellow Urine Clarity Clear Urine pH 5.0 (<5.0-8.0) Urine Specific [place] 1.020 (1.000-1.030) Urine Protein 30 mg/dL (NEG-TRACE) Urine Glucose (UA) Negative mg/dL (NEG) Urine Ketones (Stick) Negative mg/dL (NEG) Urine Blood Moderate (NEG) Urine Nitrite Negative (NEG) Urine Bilirubin Negative (NEG) Urine Urobilinogen Dipstick 1.0 mg/dL (0.2 mg/dL) Urine Leukocyte Esterase Negative (NEG) Urine RBC /HPF (0-2) Urine WBC 1-4 /HPF (0-4) Urine Squamous Epithelial Cells Occ /LPF Urine Amorphous Sediment Present /HPF Urine Bacteria Few /HPF (0-FEW) Glucose (Fingerstick) 45 mg/dL (70-99) Test 12/09/19 16:18 12/09/19 17:45 12/09/19 22:21 12/09/19 22:44 Glucose (Fingerstick) 60 mg/dL (70-99) 82 mg/dL (70-99) 43 mg/dL (70-99) 156 mg/dL (70-99) Test 12/10/19 00:20 12/10/19 01:14 12/10/19 01:32 12/10/19 03:50 Glucose (Fingerstick) 60 mg/dL (70-99) 47 mg/dL (70-99) 185 mg/dL (70-99) 59 mg/dL (70-99) Test 12/10/19 05:56 12/10/19 07:26 12/10/19 11:37 Glucose (Fingerstick) 75 mg/dL (70-99) 111 mg/dL (70-99) 120 mg/dL (70-99) Laboratory Tests Test 12/09/19 12:40 12/09/19 12:45 12/09/19 13:05 12/09/19 14:58 Influenza Type A Antigen Negative (NEGATIVE) Influenza Type B Antigen Negative (NEGATIVE) White Blood Count 4.3 x10^3/uL (4.0-11.0) Red Blood Count 4.25 x10^6/uL (4.30-5.70) Hemoglobin 12.5 g/dL (13.0-17.5) Hematocrit 38.2 % (39.0-53.0) Mean Corpuscular Volume 90 fL (79-100) Mean Corpuscular Hemoglobin 29 pg (25-35) Mean Corpuscular Hemoglobin Concent 33 g/dL (31-37) Red Cell Distribution Width 16.1 % (11.5-14.5) Platelet Count 119 x10^3/uL (140-400) Neutrophils (%) (Auto) 65 % (31-73) Lymphocytes (%) (Auto) 20 % (24-48) Monocytes (%) (Auto) 15 % (0-9) Eosinophils (%) (Auto) 0 % (0-3) Basophils (%) (Auto) 0 % (0-3) Neutrophils # (Auto) 2.8 x10^3/uL (1.8-7.7) Lymphocytes # (Auto) 0.8 x10^3/uL (1.0-4.8) Monocytes # (Auto) 0.6 x10^3/uL (0.0-1.1) Eosinophils # (Auto) 0.0 x10^3/uL (0.0-0.7) Basophils # (Auto) 0.0 x10^3/uL (0.0-0.2) Prothrombin Time 13.0 SEC (11.7-14.0) Prothromb Time International Ratio 1.0 (0.8-1.1) Activated Partial Thromboplast Time 36 SEC (24-38) Sodium Level 133 mmol/L (136-145) Potassium Level 5.2 mmol/L (3.5-5.1) Chloride Level 99 mmol/L (98-107) Carbon Dioxide Level 23 mmol/L (21-32) Anion Gap 11 (6-14) Blood Urea Nitrogen 59 mg/dL (8-26) Creatinine 3.3 mg/dL (0.7-1.3) Estimated GFR (Cockcroft-Gault) 21.6 BUN/Creatinine Ratio 18 (6-20) Glucose Level 49 mg/dL (70-99) Lactic Acid Level 1.3 mmol/L (0.4-2.0) Calcium Level 8.7 mg/dL (8.5-10.1) Magnesium Level 2.5 mg/dL (1.8-2.4) Total Bilirubin 0.4 mg/dL (0.2-1.0) Aspartate Amino Transf (AST/SGOT) 42 U/L (15-37) Alanine Aminotransferase (ALT/SGPT) 12 U/L (16-63) Alkaline Phosphatase 70 U/L (46-116) Creatine Kinase 588 U/L (39-308) Troponin I Quantitative < 0.017 ng/mL (0.000-0.055) WM-Qpz-M-Type Natriuretic Peptide 1762 pg/mL (0-449) Total Protein 7.8 g/dL (6.4-8.2) Albumin 3.5 g/dL (3.4-5.0) Albumin/Globulin Ratio 0.8 (1.0-1.7) Lipase 425 U/L (73-393) Urine Collection Type U cath Urine Color Yellow Urine Clarity Clear Urine pH 5.0 (<5.0-8.0) Urine Specific [place] 1.020 (1.000-1.030) Urine Protein 30 mg/dL (NEG-TRACE) Urine Glucose (UA) Negative mg/dL (NEG) Urine Ketones (Stick) Negative mg/dL (NEG) Urine Blood Moderate (NEG) Urine Nitrite Negative (NEG) Urine Bilirubin Negative (NEG) Urine Urobilinogen Dipstick 1.0 mg/dL (0.2 mg/dL) Urine Leukocyte Esterase Negative (NEG) Urine RBC /HPF (0-2) Urine WBC 1-4 /HPF (0-4) Urine Squamous Epithelial Cells Occ /LPF Urine Amorphous Sediment Present /HPF Urine Bacteria Few /HPF (0-FEW) Glucose (Fingerstick) 45 mg/dL (70-99) Test 12/09/19 16:18 12/09/19 17:45 12/09/19 22:21 12/09/19 22:44 Glucose (Fingerstick) 60 mg/dL (70-99) 82 mg/dL (70-99) 43 mg/dL (70-99) 156 mg/dL (70-99) Test 12/10/19 00:20 12/10/19 01:14 12/10/19 01:32 12/10/19 03:50 Glucose (Fingerstick) 60 mg/dL (70-99) 47 mg/dL (70-99) 185 mg/dL (70-99) 59 mg/dL (70-99) Test 12/10/19 05:56 12/10/19 07:26 12/10/19 11:37 Glucose (Fingerstick) 75 mg/dL (70-99) 111 mg/dL (70-99) 120 mg/dL (70-99) Review All relevant outside records, renal labs, imaging studies, telemetry/EKG's were reviewed. Images Images CxR-- 1. Hazy bibasilar infiltrates. CT ABDOMEN 2019- 1. A 1.8 cm mass at the left renal upper pole may represent a proteinaceous/hemorrhagic cyst but is indeterminate without contrast. Renal ultrasound is suggested to differentiate cystic from solid lesions versus CT or MRI with and without contrast. 2. No renal or ureteral calculi. 3. Diffuse bladder wall thickening indicates chronic outlet obstruction or inflammation. Correlate with urinalysis. 4. Prominent left inguinal lymph nodes. Correlate for left lower extremity inflammation or other causes. 5. Severe central canal stenosis at L3-4. WILLA ANDREA MD Dec 10, 2019 12:45
[2019-12-10] MEDS ORDERED: WARFARIN 3 MG TABLET. PO SCH (16:00)
[2019-12-10] MEDS ORDERED: AZITHRMYCN 500MG IVPB FOR OMNI 250 ML IV ONE (16:30)
--- NOTE | 2019-12-10 16:32 | PDOC ---
PULMONARY PROGRESS NOTES Vitals Vital Signs Date Time Temp Pulse Resp B/P (MAP) Pulse Ox O2 Delivery O2 Flow Rate FiO2 12/10/19 15:00 98.2 76 22 145/68 (93) 94 Room Air 98.2 Lungs: Wheezing Labs Laboratory Tests Test 12/09/19 12:40 12/09/19 12:45 12/09/19 13:05 12/09/19 14:58 Influenza Type A Antigen Negative (NEGATIVE) Influenza Type B Antigen Negative (NEGATIVE) White Blood Count 4.3 x10^3/uL (4.0-11.0) Red Blood Count 4.25 x10^6/uL (4.30-5.70) Hemoglobin 12.5 g/dL (13.0-17.5) Hematocrit 38.2 % (39.0-53.0) Mean Corpuscular Volume 90 fL (79-100) Mean Corpuscular Hemoglobin 29 pg (25-35) Mean Corpuscular Hemoglobin Concent 33 g/dL (31-37) Red Cell Distribution Width 16.1 % (11.5-14.5) Platelet Count 119 x10^3/uL (140-400) Neutrophils (%) (Auto) 65 % (31-73) Lymphocytes (%) (Auto) 20 % (24-48) Monocytes (%) (Auto) 15 % (0-9) Eosinophils (%) (Auto) 0 % (0-3) Basophils (%) (Auto) 0 % (0-3) Neutrophils # (Auto) 2.8 x10^3/uL (1.8-7.7) Lymphocytes # (Auto) 0.8 x10^3/uL (1.0-4.8) Monocytes # (Auto) 0.6 x10^3/uL (0.0-1.1) Eosinophils # (Auto) 0.0 x10^3/uL (0.0-0.7) Basophils # (Auto) 0.0 x10^3/uL (0.0-0.2) Prothrombin Time 13.0 SEC (11.7-14.0) Prothromb Time International Ratio 1.0 (0.8-1.1) Activated Partial Thromboplast Time 36 SEC (24-38) Sodium Level 133 mmol/L (136-145) Potassium Level 5.2 mmol/L (3.5-5.1) Chloride Level 99 mmol/L (98-107) Carbon Dioxide Level 23 mmol/L (21-32) Anion Gap 11 (6-14) Blood Urea Nitrogen 59 mg/dL (8-26) Creatinine 3.3 mg/dL (0.7-1.3) Estimated GFR (Cockcroft-Gault) 21.6 BUN/Creatinine Ratio 18 (6-20) Glucose Level 49 mg/dL (70-99) Lactic Acid Level 1.3 mmol/L (0.4-2.0) Calcium Level 8.7 mg/dL (8.5-10.1) Magnesium Level 2.5 mg/dL (1.8-2.4) Total Bilirubin 0.4 mg/dL (0.2-1.0) Aspartate Amino Transf (AST/SGOT) 42 U/L (15-37) Alanine Aminotransferase (ALT/SGPT) 12 U/L (16-63) Alkaline Phosphatase 70 U/L (46-116) Creatine Kinase 588 U/L (39-308) Troponin I Quantitative < 0.017 ng/mL (0.000-0.055) EW-Lpi-P-Type Natriuretic Peptide 1762 pg/mL (0-449) Total Protein 7.8 g/dL (6.4-8.2) Albumin 3.5 g/dL (3.4-5.0) Albumin/Globulin Ratio 0.8 (1.0-1.7) Lipase 425 U/L (73-393) Urine Collection Type U cath Urine Color Yellow Urine Clarity Clear Urine pH 5.0 (<5.0-8.0) Urine Specific [place] 1.020 (1.000-1.030) Urine Protein 30 mg/dL (NEG-TRACE) Urine Glucose (UA) Negative mg/dL (NEG) Urine Ketones (Stick) Negative mg/dL (NEG) Urine Blood Moderate (NEG) Urine Nitrite Negative (NEG) Urine Bilirubin Negative (NEG) Urine Urobilinogen Dipstick 1.0 mg/dL (0.2 mg/dL) Urine Leukocyte Esterase Negative (NEG) Urine RBC /HPF (0-2) Urine WBC 1-4 /HPF (0-4) Urine Squamous Epithelial Cells Occ /LPF Urine Amorphous Sediment Present /HPF Urine Bacteria Few /HPF (0-FEW) Glucose (Fingerstick) 45 mg/dL (70-99) Test 12/09/19 16:18 12/09/19 17:45 12/09/19 22:21 12/09/19 22:44 Glucose (Fingerstick) 60 mg/dL (70-99) 82 mg/dL (70-99) 43 mg/dL (70-99) 156 mg/dL (70-99) Test 12/10/19 00:20 12/10/19 01:14 12/10/19 01:32 12/10/19 03:50 Glucose (Fingerstick) 60 mg/dL (70-99) 47 mg/dL (70-99) 185 mg/dL (70-99) 59 mg/dL (70-99) Test 12/10/19 05:56 12/10/19 07:26 12/10/19 11:37 12/10/19 16:01 Glucose (Fingerstick) 75 mg/dL (70-99) 111 mg/dL (70-99) 120 mg/dL (70-99) 92 mg/dL (70-99) Laboratory Tests Test 12/09/19 17:45 12/09/19 22:21 12/09/19 22:44 12/10/19 00:20 Glucose (Fingerstick) 82 mg/dL (70-99) 43 mg/dL (70-99) 156 mg/dL (70-99) 60 mg/dL (70-99) Test 12/10/19 01:14 12/10/19 01:32 12/10/19 03:50 12/10/19 05:56 Glucose (Fingerstick) 47 mg/dL (70-99) 185 mg/dL (70-99) 59 mg/dL (70-99) 75 mg/dL (70-99) Test 12/10/19 07:26 12/10/19 11:37 12/10/19 16:01 Glucose (Fingerstick) 111 mg/dL (70-99) 120 mg/dL (70-99) 92 mg/dL (70-99) Medications Active Scripts Medications Dose Route/Sig Max Daily Dose Days Date Category Dose Instructions Warfarin Sodium 3 Mg Tablet 1 Tab PO 1X 09/28/17 Reported Fluticasone Propionate Nasal [place] (Fluticasone Propionate) 16 Gm [place].susp 2 [place] NS DAILY 09/25/17 Reported last dos this am next dose tomorrow am (monday) Lubricant Eye Drops (Propylene Glycol) 10 Ml Drops 10 Ml OP [id number] 09/25/17 Reported last dose after lunch next dose with supper/ bedtime Lubricant Eye Drops (Carboxymethylcellulose Sodium) 1 Each Droperette 1 Each OP HS 09/25/17 Reported last dose last evening next dosetonight provided his own Glipizide 5 Mg Tablet 5 Mg PO DAILYWSUP 07/12/16 Reported last dose last night next dose tonight with supper Glipizide 5 Mg Tablet 2.5 Mg PO DAILY 07/12/16 Reported last dose this am (next dose tomorrow am monday) Loratadine 10 Mg Tablet 10 Mg PO 06/27/16 Reported last dose this am next dose tomorrow am(monday) Omeprazole 20 Mg Capsule.dr 20 Mg PO DAILY 06/27/16 Reported last dose this am next dose tomorrow am (monday) Ferrous Sulfate 325 Mg Tablet 1 Tab PO DAILY 06/27/16 Reported last dose this am next dose tonight Aspir 81 (Aspirin) 81 Mg Tablet.dr 81 Mg PO DAILY 06/27/16 Reported Amlodipine-Benazepril 5-10 Mg (Amlodipine Besylate/Benazepril) 1 Each Capsule 1 Cap PO DAILY 06/27/16 Reported last dos this am next dose tomorrow am (monday) Tamsulosin Hcl 0.4 Mg Cap.er.24h 1 Cap PO DAILY 10/06/14 Reported last dose this am next dose tomorrow am (monday) Simvastatin 20 Mg Tablet 1 Tab PO QHS 10/06/14 Reported last dose last evening next dose tonight Hydrochlorothiazide Tablet (Hydrochlorothiazide) 25 Mg Tablet 1 Tab PO DAILY 10/06/14 Reported last dos this am next dose tomorrow am (monday) Allopurinol 100 Mg Tablet 1 Tab PO DAILY 10/06/14 Reported last dose this am next dose tomorrow on monday Levothyroxine Sodium 50 Mcg Tablet 1 Tab PO DAILY 10/06/14 Reported last dose this am next dose tomorrow am (monday) Impression . LL NOTE DICTATED WILL TREAT FOR PNEUMONIA WILL NEED SARS COV 2 CHECK VISHNU CRUZ MD Dec 10, 2019 16:32
[2019-12-10] MEDS ORDERED: CARB1TAB22 PO (16:46)
[2019-12-10] MEDS ORDERED: glipiZIDE 5 MG TABLET PO SCH (17:00)
[2019-12-10] MEDS ORDERED: POLYVINYL ALCOHOL 1.4% OPHTH SOLUTION 15ML BOTTLE. OU SCH (17:00)
[2019-12-10] MEDS: LISINOPRIL 10 MG TABLET PO SCH (17:17)
[2019-12-10] MEDS: ASPIRIN ENTERIC COATED 81 MG TABLET.DR. PO SCH (17:17)
[2019-12-10] MEDS: FERROUS SULFATE 325 MG TABLET. PO SCH (17:18)
[2019-12-10] MEDS: CETIRIZINE HCL 10 MG TABLET. PO SCH (17:18)
[2019-12-10] MEDS: amLODIPine BESYLATE 5 MG TABLET PO SCH (17:18)
[2019-12-10] MEDS: TAMSULOSIN 0.4 MG CAP.ER.24H. PO SCH (17:18)
[2019-12-10] MEDS: PANTOPRAZOLE 40 MG TABLET.DR. PO SCH (17:19)
[2019-12-10] MEDS: ALLOPURINOL 100 MG TABLET. PO SCH (17:19)
[2019-12-10] MEDS: cefTRIAXone IV Push 1 GM VIAL. IVP SCH (17:19)
[2019-12-10] MEDS: hydroCHLOROthiazide 25 MG TABLET PO SCH (17:19)
[2019-12-10] MEDS: AZITHROMYCIN 500 MG in IV NORMAL SALINE 250ML 250 ML IV SCH (17:20)
[2019-12-10] MEDS: CARBIDOPA/LEVODOPA 25/100MG TABLET PO SCH ×2 (17:21→20:11)
[2019-12-10] MEDS: SIMVASTATIN 20 MG TABLET PO SCH (20:11)
[2019-12-10] MEDS ORDERED: CARBOXYMETHYLCELLULOSE SODIUM OP SCH (21:00)
--- NOTE | 2019-12-10 22:57 | CONS ---
DATE OF CONSULTATION: 12/10/2019 ATTENDING PHYSICIAN: Dr. Powers CONSULTING PHYSICIAN: Vishnu Cruz MD REASONS FOR CONSULTATION: The patient is seen in pulmonary consultation at the request of Dr. Powers for increasing shortness of air and abnormal chest x-ray revealing basilar infiltrates. HISTORY OF PRESENT ILLNESS: The patient is an 84-year-old with comorbidities, arthritis, diabetes, back surgery, debility, and malnutrition, presented with increasing shortness of breath over the last 2-3 days. He has subjective fever and cough, mostly nonproductive. He does not wear oxygen at home. He presented to the emergency room and had a T-max of 100.7. Saturation on room air was 90. The patient was severely short of breath. His labs revealed hyponatremia. White count was low at 4.3. His sodium was 133. BUN was elevated. Creatinine was elevated. BNP was elevated. Albumin was 3.5. PAST MEDICAL HISTORY: Arthritis and diabetes. PAST SURGICAL HISTORY: Back surgery and thyroid surgery. ALLERGIES: YONG INHIBITORS AND ARB. FAMILY HISTORY: Coronary artery disease. SOCIAL HISTORY: He denies any alcohol. He has never smoked. MEDICATIONS: List was reviewed. REVIEW OF SYSTEMS: CONSTITUTIONAL: Subjective fever. EYES: No change in visual acuity. HENT: No nasal congestion or sore throat. PULMONARY: As indicated above. CARDIOVASCULAR: No chest pain or pressure. GASTROINTESTINAL: No nausea, vomiting, or diarrhea. GENITOURINARY: No dysuria or frequency. MUSCULOSKELETAL: No localized muscle ache or joint pain. SKIN: No new skin rashes. NEUROLOGIC: No headaches, diplopia, or blurred vision. PHYSICAL EXAMINATION: GENERAL: The patient appeared to be frail and weak. VITAL SIGNS: O2 saturation on room air was 90%. HEENT: Eyes, the sclerae were anicteric. NECK: Jugular venous distention could not be assessed secondary to body habitus. CHEST: Full expansion. LUNGS: Crackles in the bases. No wheezes. CARDIOVASCULAR: Regular rate and rhythm with S1 and S2, no S3. ABDOMEN: Soft, nontender, and nondistended. EXTREMITIES: No clubbing, cyanosis, or edema. NEUROLOGICAL: The patient was awake, alert, following commands. A detailed neurologic examination was not performed. LABORATORY DATA: Labs were reviewed. White count was 4.3. Hemoglobin and hematocrit were noted. BUN and creatinine were elevated. Sodium was low at 133. IMAGING: Chest x-ray, abnormal. IMPRESSION AND PLAN: 1. This is an 84-year-old, who presents with comorbidities including debility, diabetes, and chronic kidney disease on top of acute kidney disease with abnormal chest x-ray. Complex medical decision making, he will be treated for bacterial pneumonia. He has fever. We will check SARS-CoV-2. He has been seen in consult by Nephrology for acute kidney injury, suspect vasomotor and dehydration. He will be given broad-spectrum antibiotics. Follow clinical course and make recommendations. He will be maintained in isolation and droplet precaution. Continue his home medications. I do appreciate the privilege in sharing in the patient's care. VISHNU CRUZ MD DR: MARC/nts JOB#: [id number] / [id number]
[2019-12-11] MEDS: DEXTROSE 50% 25 GM / 50ML DISP.SYRIN. IV PRN ×2 (02:32→05:55)
[2019-12-11 03:11] VITALS: BP 128/58
[2019-12-11] MEDS ORDERED: MECO10005 PO (05:09)
[2019-12-11] MEDS ORDERED: FINA5TAB4 PO (05:10)
[2019-12-11] MEDS ORDERED: SULF1TAB24 PO (05:14)
[2019-12-11] MEDS ORDERED: IRBE300T23 PO (05:16)
[2019-12-11 05:35] LABS: ALBUMIN 2.8 g/dL (3.4-5.0); CALCIUM 8.1 mg/dL (8.5-10.1); CREATININE 2.4 mg/dL (0.7-1.3); GFR 31.2; PHOSPHORUS 2.6 mg/dL (2.6-4.7); POTASSIUM 4.5 mmol/L (3.5-5.1)
[2019-12-11] MEDS: LEVOTHYROXINE 50 MCG TABLET PO SCH (05:48)
[2019-12-11 07:00] VITALS: BP 112/54
[2019-12-11] MEDS: glipiZIDE 5 MG TABLET PO SCH (07:30)
--- NOTE | 2019-12-11 08:57 | PDOC ---
PULMONARY PROGRESS NOTES Vitals Vital Signs Date Time Temp Pulse Resp B/P (MAP) Pulse Ox O2 Delivery O2 Flow Rate FiO2 12/11/19 07:00 99.5 62 20 112/54 (73) 94 Room Air 99.5 Lungs: Wheezing Labs Laboratory Tests Test 12/09/19 12:40 12/09/19 12:45 12/09/19 13:05 12/09/19 14:58 Influenza Type A Antigen Negative (NEGATIVE) Influenza Type B Antigen Negative (NEGATIVE) White Blood Count 4.3 x10^3/uL (4.0-11.0) Red Blood Count 4.25 x10^6/uL (4.30-5.70) Hemoglobin 12.5 g/dL (13.0-17.5) Hematocrit 38.2 % (39.0-53.0) Mean Corpuscular Volume 90 fL (79-100) Mean Corpuscular Hemoglobin 29 pg (25-35) Mean Corpuscular Hemoglobin Concent 33 g/dL (31-37) Red Cell Distribution Width 16.1 % (11.5-14.5) Platelet Count 119 x10^3/uL (140-400) Neutrophils (%) (Auto) 65 % (31-73) Lymphocytes (%) (Auto) 20 % (24-48) Monocytes (%) (Auto) 15 % (0-9) Eosinophils (%) (Auto) 0 % (0-3) Basophils (%) (Auto) 0 % (0-3) Neutrophils # (Auto) 2.8 x10^3/uL (1.8-7.7) Lymphocytes # (Auto) 0.8 x10^3/uL (1.0-4.8) Monocytes # (Auto) 0.6 x10^3/uL (0.0-1.1) Eosinophils # (Auto) 0.0 x10^3/uL (0.0-0.7) Basophils # (Auto) 0.0 x10^3/uL (0.0-0.2) Prothrombin Time 13.0 SEC (11.7-14.0) Prothromb Time International Ratio 1.0 (0.8-1.1) Activated Partial Thromboplast Time 36 SEC (24-38) Sodium Level 133 mmol/L (136-145) Potassium Level 5.2 mmol/L (3.5-5.1) Chloride Level 99 mmol/L (98-107) Carbon Dioxide Level 23 mmol/L (21-32) Anion Gap 11 (6-14) Blood Urea Nitrogen 59 mg/dL (8-26) Creatinine 3.3 mg/dL (0.7-1.3) Estimated GFR (Cockcroft-Gault) 21.6 BUN/Creatinine Ratio 18 (6-20) Glucose Level 49 mg/dL (70-99) Lactic Acid Level 1.3 mmol/L (0.4-2.0) Calcium Level 8.7 mg/dL (8.5-10.1) Magnesium Level 2.5 mg/dL (1.8-2.4) Total Bilirubin 0.4 mg/dL (0.2-1.0) Aspartate Amino Transf (AST/SGOT) 42 U/L (15-37) Alanine Aminotransferase (ALT/SGPT) 12 U/L (16-63) Alkaline Phosphatase 70 U/L (46-116) Creatine Kinase 588 U/L (39-308) Troponin I Quantitative < 0.017 ng/mL (0.000-0.055) SM-Oxw-M-Type Natriuretic Peptide 1762 pg/mL (0-449) Total Protein 7.8 g/dL (6.4-8.2) Albumin 3.5 g/dL (3.4-5.0) Albumin/Globulin Ratio 0.8 (1.0-1.7) Lipase 425 U/L (73-393) Urine Collection Type U cath Urine Color Yellow Urine Clarity Clear Urine pH 5.0 (<5.0-8.0) Urine Specific [place] 1.020 (1.000-1.030) Urine Protein 30 mg/dL (NEG-TRACE) Urine Glucose (UA) Negative mg/dL (NEG) Urine Ketones (Stick) Negative mg/dL (NEG) Urine Blood Moderate (NEG) Urine Nitrite Negative (NEG) Urine Bilirubin Negative (NEG) Urine Urobilinogen Dipstick 1.0 mg/dL (0.2 mg/dL) Urine Leukocyte Esterase Negative (NEG) Urine RBC /HPF (0-2) Urine WBC 1-4 /HPF (0-4) Urine Squamous Epithelial Cells Occ /LPF Urine Amorphous Sediment Present /HPF Urine Bacteria Few /HPF (0-FEW) Glucose (Fingerstick) 45 mg/dL (70-99) Test 12/09/19 16:18 12/09/19 17:45 12/09/19 22:21 12/09/19 22:44 Glucose (Fingerstick) 60 mg/dL (70-99) 82 mg/dL (70-99) 43 mg/dL (70-99) 156 mg/dL (70-99) Test 12/10/19 00:20 12/10/19 01:14 12/10/19 01:32 12/10/19 03:50 Glucose (Fingerstick) 60 mg/dL (70-99) 47 mg/dL (70-99) 185 mg/dL (70-99) 59 mg/dL (70-99) Test 12/10/19 05:56 12/10/19 07:26 12/10/19 11:37 12/10/19 16:01 Glucose (Fingerstick) 75 mg/dL (70-99) 111 mg/dL (70-99) 120 mg/dL (70-99) 92 mg/dL (70-99) Test 12/10/19 20:22 12/10/19 22:43 12/10/19 23:05 12/11/19 01:52 Glucose (Fingerstick) 75 mg/dL (70-99) 34 mg/dL (70-99) 152 mg/dL (70-99) 38 mg/dL (70-99) Test 12/11/19 02:18 12/11/19 03:45 12/11/19 05:52 12/11/19 06:17 Glucose (Fingerstick) 132 mg/dL (70-99) 53 mg/dL (70-99) 158 mg/dL (70-99) Sodium Level 140 mmol/L (136-145) Potassium Level 4.5 mmol/L (3.5-5.1) Chloride Level 106 mmol/L (98-107) Carbon Dioxide Level 24 mmol/L (21-32) Anion Gap 10 (6-14) Blood Urea Nitrogen 33 mg/dL (8-26) Creatinine 2.4 mg/dL (0.7-1.3) Estimated GFR (Cockcroft-Gault) 31.2 Glucose Level 50 mg/dL (70-99) Calcium Level 8.1 mg/dL (8.5-10.1) Phosphorus Level 2.6 mg/dL (2.6-4.7) Creatine Kinase 3673 U/L (39-308) Albumin 2.8 g/dL (3.4-5.0) Test 12/11/19 07:55 Glucose (Fingerstick) 98 mg/dL (70-99) Laboratory Tests Test 12/10/19 11:37 12/10/19 16:01 12/10/19 20:22 12/10/19 22:43 Glucose (Fingerstick) 120 mg/dL (70-99) 92 mg/dL (70-99) 75 mg/dL (70-99) 34 mg/dL (70-99) Test 12/10/19 23:05 12/11/19 01:52 12/11/19 02:18 12/11/19 03:45 Glucose (Fingerstick) 152 mg/dL (70-99) 38 mg/dL (70-99) 132 mg/dL (70-99) Sodium Level 140 mmol/L (136-145) Potassium Level 4.5 mmol/L (3.5-5.1) Chloride Level 106 mmol/L (98-107) Carbon Dioxide Level 24 mmol/L (21-32) Anion Gap 10 (6-14) Blood Urea Nitrogen 33 mg/dL (8-26) Creatinine 2.4 mg/dL (0.7-1.3) Estimated GFR (Cockcroft-Gault) 31.2 Glucose Level 50 mg/dL (70-99) Calcium Level 8.1 mg/dL (8.5-10.1) Phosphorus Level 2.6 mg/dL (2.6-4.7) Creatine Kinase 3673 U/L (39-308) Albumin 2.8 g/dL (3.4-5.0) Test 12/11/19 05:52 12/11/19 06:17 12/11/19 07:55 Glucose (Fingerstick) 53 mg/dL (70-99) 158 mg/dL (70-99) 98 mg/dL (70-99) Medications Active Scripts Medications Dose Route/Sig Max Daily Dose Days Date Category Dose Instructions Warfarin Sodium 3 Mg Tablet 1 Tab PO 1X 09/28/17 Reported Fluticasone Propionate Nasal [place] (Fluticasone Propionate) 16 Gm [place].susp 2 [place] NS DAILY 09/25/17 Reported last dos this am next dose tomorrow am (monday) Lubricant Eye Drops (Propylene Glycol) 10 Ml Drops 10 Ml OP [id number] 09/25/17 Reported last dose after lunch next dose with supper/ bedtime Lubricant Eye Drops (Carboxymethylcellulose Sodium) 1 Each Droperette 1 Each OP HS 09/25/17 Reported last dose last evening next dosetonight provided his own Glipizide 5 Mg Tablet 5 Mg PO DAILYWSUP 07/12/16 Reported last dose last night next dose tonight with supper Glipizide 5 Mg Tablet 2.5 Mg PO DAILY 07/12/16 Reported last dose this am (next dose tomorrow am monday) Loratadine 10 Mg Tablet 10 Mg PO 06/27/16 Reported last dose this am next dose tomorrow am(monday) Omeprazole 20 Mg Capsule.dr 20 Mg PO DAILY 06/27/16 Reported last dose this am next dose tomorrow am (monday) Ferrous Sulfate 325 Mg Tablet 1 Tab PO DAILY 06/27/16 Reported last dose this am next dose tonight Aspir 81 (Aspirin) 81 Mg Tablet.dr 81 Mg PO DAILY 06/27/16 Reported Amlodipine-Benazepril 5-10 Mg (Amlodipine Besylate/Benazepril) 1 Each Capsule 1 Cap PO DAILY 06/27/16 Reported last dos this am next dose tomorrow am (monday) Tamsulosin Hcl 0.4 Mg Cap.er.24h 1 Cap PO DAILY 10/06/14 Reported last dose this am next dose tomorrow am (monday) Simvastatin 20 Mg Tablet 1 Tab PO QHS 10/06/14 Reported last dose last evening next dose tonight Hydrochlorothiazide Tablet (Hydrochlorothiazide) 25 Mg Tablet 1 Tab PO DAILY 10/06/14 Reported last dos this am next dose tomorrow am (monday) Allopurinol 100 Mg Tablet 1 Tab PO DAILY 10/06/14 Reported last dose this am next dose tomorrow on monday Levothyroxine Sodium 50 Mcg Tablet 1 Tab PO DAILY 10/06/14 Reported last dose this am next dose tomorrow am (monday) Impression . LL NOTE DICTATED WILL TREAT FOR PNEUMONIA WILL NEED SARS COV 2 CHECK VISHNU CRUZ MD Dec 11, 2019 08:57
[2019-12-11] MEDS: amLODIPine BESYLATE 5 MG TABLET PO SCH (09:20)
[2019-12-11] MEDS: CETIRIZINE HCL 10 MG TABLET. PO SCH (09:20)
[2019-12-11] MEDS: PANTOPRAZOLE 40 MG TABLET.DR. PO SCH (09:21)
[2019-12-11] MEDS: ASPIRIN ENTERIC COATED 81 MG TABLET.DR. PO SCH (09:21)
[2019-12-11] MEDS: LISINOPRIL 10 MG TABLET PO SCH (09:21)
[2019-12-11] MEDS: FERROUS SULFATE 325 MG TABLET. PO SCH (09:21)
[2019-12-11] MEDS: TAMSULOSIN 0.4 MG CAP.ER.24H. PO SCH (09:21)
[2019-12-11] MEDS: CARBIDOPA/LEVODOPA 25/100MG TABLET PO SCH ×3 (09:21→21:32)
[2019-12-11] MEDS: ALLOPURINOL 100 MG TABLET. PO SCH (09:21)
[2019-12-11] MEDS: hydroCHLOROthiazide 25 MG TABLET PO SCH (09:21)
[2019-12-11] MEDS: FLUTICASONE 50MCG/NASAL SPRAY 16GM BOTTLE. NS SCH (09:22)
[2019-12-11] MEDS: ACETAMINOPHEN 500 MG TABLET PO PRN ×2 (09:26→14:32)
--- NOTE | 2019-12-11 10:27 | PDOC ---
SUBJECTIVE ROS stable OBJECTIVE Vital Signs Vital Signs Date Time Temp Pulse Resp B/P (MAP) Pulse Ox O2 Delivery O2 Flow Rate FiO2 12/11/19 09:21 62 112/54 12/11/19 07:00 99.5 20 94 Room Air 99.5 I & 0 Intake and Output 12/11/19 07:00 Intake Total 540 ml Balance 540 ml Intake Oral 540 ml # Voids 7 # Bowel Movements 2 PHYSICAL EXAM Physical Exam GENERAL: No apparent distress. Alert HEENT:OM dryish NECK: Supple, LUNGS: Clear to auscultation, decreased at bases, Non labored HEART: RRR, S1, S2 present. ABDOMEN: Soft, nontender. EXTREMITIES: Without any cyanosis, clubbing, or edema. 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 Dinh's care, he didint keep fu appt earlier this year , Last seen by Dr Dinh in Apr 2019 Mildly elevated CK-monitor, if persistent recommend holding Statin Defer to Primary HypoNatremia- Normal now HyperKalemia- Mild at presentation, normal now Renal Cyst- Ct abdomen 2019- 1.8 cm mass at the left renal upper pole may represent a proteinaceous/hemorrhagic cyst but is indeterminate without contrast. Renal ultrasound done in 2019 - focus of different echogenicity of the superior left kidney apparently corresponding with the CT findings Somewhat complicated cyst is favored. COMMENT/RELEVANT DATA Meds Current Medications Medications (Trade) Dose Ordered Sig/Aga Start Time Stop Time Status Last Admin Dose Admin Acetaminophen (Tylenol) 1,000 mg PRN Q6HRS PRN 12/09/19 15:30 12/09/19 18:00 DC Allopurinol (Zyloprim) 100 mg DAILY 12/10/19 17:00 12/11/19 09:21 100 MG Amlodipine Besylate (Norvasc) 5 mg DAILY 12/10/19 17:00 12/11/19 09:20 5 MG Artificial Tears (Artificial Tears) 1 drop [id number] 12/10/19 17:00 12/10/19 16:44 DC Aspirin (Ecotrin) 81 mg DAILY 12/10/19 17:00 12/11/19 09:21 81 MG Azithromycin 250 ml @ 250 mls/hr 1X ONCE 12/10/19 16:30 12/10/19 17:29 UNV Azithromycin 500 mg/Sodium Chloride 250 ml @ 250 mls/hr Q24H 12/10/19 18:00 12/10/19 17:20 250 MLS/HR Carbidopa/Levodopa (Sinemet 25/100) 2 tab TID 12/10/19 17:00 12/11/19 09:21 2 TAB Ceftriaxone Sodium (Rocephin) 1 gm Q24H 12/10/19 18:00 12/10/19 17:19 1 GM Cetirizine HCl (ZyrTEC) 10 mg DAILY 12/10/19 17:00 12/11/19 09:20 10 MG Dextrose (Dextrose 50%-Water Syringe) 12.5 gm PRN Q15MIN PRN 12/10/19 00:30 12/11/19 05:55 12.5 GM Ferrous Sulfate (Feosol) 325 mg DAILY08 12/10/19 17:00 12/11/19 09:21 325 MG Fluticasone Propionate (Flonase) 2 spray DAILY 12/11/19 09:00 12/11/19 09:22 2 SPRAY Glipizide (Glucotrol) 5 mg DAILYWSUP 12/10/19 17:00 12/11/19 08:03 DC 12/10/19 17:18 5 MG Hydrochlorothiazide (Hydrodiuril) 25 mg DAILY 12/10/19 17:00 12/11/19 09:21 25 MG Levothyroxine Sodium (Synthroid) 50 mcg DAILY06 12/11/19 06:00 12/11/19 05:48 50 MCG Lisinopril (Prinivil) 10 mg DAILY 12/10/19 17:00 12/11/19 09:21 10 MG Non-Formulary Medication (Carboxymethylcellulose Sodium (Lubricant Eye Drops)) 1 each HS 12/10/19 21:00 UNV Pantoprazole Sodium (Protonix) 40 mg DAILYAC 12/10/19 16:30 12/11/19 09:21 40 MG Simvastatin (Zocor) 20 mg QHS 12/10/19 21:00 12/10/19 20:11 20 MG Sodium Polystyrene Sulfonate (Kayexalate) 15 gm 1X ONCE 12/09/19 13:45 12/09/19 13:46 DC 12/09/19 14:35 15 GM Sodium Chloride 1,000 ml @ 150 mls/hr Q6H40M 12/09/19 13:46 12/10/19 13:45 DC 12/10/19 09:00 150 MLS/HR Tamsulosin HCl (Flomax) 0.4 mg DAILY 12/10/19 17:00 12/11/19 09:21 0.4 MG Vancomycin HCl 250 ml @ 250 mls/hr 1X ONCE 12/09/19 13:30 12/09/19 14:29 DC 12/09/19 13:49 250 MLS/HR Warfarin Sodium (Coumadin Per Physician) 1 each PRN DAILY PRN 12/10/19 16:30 12/10/19 16:44 DC Warfarin Sodium (Coumadin) 3 mg 1X 12/10/19 16:00 12/10/19 16:44 DC Lab Laboratory Tests Test 12/10/19 11:37 12/10/19 16:01 12/10/19 20:22 12/10/19 22:43 Glucose (Fingerstick) 120 mg/dL (70-99) 92 mg/dL (70-99) 75 mg/dL (70-99) 34 mg/dL (70-99) Test 12/10/19 23:05 12/11/19 01:52 12/11/19 02:18 12/11/19 03:45 Glucose (Fingerstick) 152 mg/dL (70-99) 38 mg/dL (70-99) 132 mg/dL (70-99) Sodium Level 140 mmol/L (136-145) Potassium Level 4.5 mmol/L (3.5-5.1) Chloride Level 106 mmol/L (98-107) Carbon Dioxide Level 24 mmol/L (21-32) Anion Gap 10 (6-14) Blood Urea Nitrogen 33 mg/dL (8-26) Creatinine 2.4 mg/dL (0.7-1.3) Estimated GFR (Cockcroft-Gault) 31.2 Glucose Level 50 mg/dL (70-99) Calcium Level 8.1 mg/dL (8.5-10.1) Phosphorus Level 2.6 mg/dL (2.6-4.7) Creatine Kinase 3673 U/L (39-308) Albumin 2.8 g/dL (3.4-5.0) Test 12/11/19 05:52 12/11/19 06:17 12/11/19 07:55 Glucose (Fingerstick) 53 mg/dL (70-99) 158 mg/dL (70-99) 98 mg/dL (70-99) Results All relevant outside records, renal labs, imaging studies, telemetry/EKG's were reviewed. WILLA ANDREA MD Dec 11, 2019 10:27
[2019-12-11 11:00] VITALS: BP 87/51
--- NOTE | 2019-12-11 12:19 | PDOC ---
PULMONARY PROGRESS NOTES Subjective feels better no soa, on RA Vitals Vital Signs Date Time Temp Pulse Resp B/P (MAP) Pulse Ox O2 Delivery O2 Flow Rate FiO2 12/11/19 11:00 101.1 85 16 87/51 (63) 92 Room Air 101.1 General: Alert, No acute distress Lungs: Wheezing Cardiovascular: S1 Abdomen: Soft Neuro Exam: Alert Extremities: No Edema Skin: Warm Labs Laboratory Tests Test 12/09/19 12:40 12/09/19 12:45 12/09/19 13:05 12/09/19 14:58 Influenza Type A Antigen Negative (NEGATIVE) Influenza Type B Antigen Negative (NEGATIVE) White Blood Count 4.3 x10^3/uL (4.0-11.0) Red Blood Count 4.25 x10^6/uL (4.30-5.70) Hemoglobin 12.5 g/dL (13.0-17.5) Hematocrit 38.2 % (39.0-53.0) Mean Corpuscular Volume 90 fL (79-100) Mean Corpuscular Hemoglobin 29 pg (25-35) Mean Corpuscular Hemoglobin Concent 33 g/dL (31-37) Red Cell Distribution Width 16.1 % (11.5-14.5) Platelet Count 119 x10^3/uL (140-400) Neutrophils (%) (Auto) 65 % (31-73) Lymphocytes (%) (Auto) 20 % (24-48) Monocytes (%) (Auto) 15 % (0-9) Eosinophils (%) (Auto) 0 % (0-3) Basophils (%) (Auto) 0 % (0-3) Neutrophils # (Auto) 2.8 x10^3/uL (1.8-7.7) Lymphocytes # (Auto) 0.8 x10^3/uL (1.0-4.8) Monocytes # (Auto) 0.6 x10^3/uL (0.0-1.1) Eosinophils # (Auto) 0.0 x10^3/uL (0.0-0.7) Basophils # (Auto) 0.0 x10^3/uL (0.0-0.2) Prothrombin Time 13.0 SEC (11.7-14.0) Prothromb Time International Ratio 1.0 (0.8-1.1) Activated Partial Thromboplast Time 36 SEC (24-38) Sodium Level 133 mmol/L (136-145) Potassium Level 5.2 mmol/L (3.5-5.1) Chloride Level 99 mmol/L (98-107) Carbon Dioxide Level 23 mmol/L (21-32) Anion Gap 11 (6-14) Blood Urea Nitrogen 59 mg/dL (8-26) Creatinine 3.3 mg/dL (0.7-1.3) Estimated GFR (Cockcroft-Gault) 21.6 BUN/Creatinine Ratio 18 (6-20) Glucose Level 49 mg/dL (70-99) Lactic Acid Level 1.3 mmol/L (0.4-2.0) Calcium Level 8.7 mg/dL (8.5-10.1) Magnesium Level 2.5 mg/dL (1.8-2.4) Total Bilirubin 0.4 mg/dL (0.2-1.0) Aspartate Amino Transf (AST/SGOT) 42 U/L (15-37) Alanine Aminotransferase (ALT/SGPT) 12 U/L (16-63) Alkaline Phosphatase 70 U/L (46-116) Creatine Kinase 588 U/L (39-308) Troponin I Quantitative < 0.017 ng/mL (0.000-0.055) [id number] Natriuretic Peptide 1762 pg/mL (0-449) Total Protein 7.8 g/dL (6.4-8.2) Albumin 3.5 g/dL (3.4-5.0) Albumin/Globulin Ratio 0.8 (1.0-1.7) Lipase 425 U/L (73-393) Urine Collection Type U cath Urine Color Yellow Urine Clarity Clear Urine pH 5.0 (<5.0-8.0) Urine Specific [place] 1.020 (1.000-1.030) Urine Protein 30 mg/dL (NEG-TRACE) Urine Glucose (UA) Negative mg/dL (NEG) Urine Ketones (Stick) Negative mg/dL (NEG) Urine Blood Moderate (NEG) Urine Nitrite Negative (NEG) Urine Bilirubin Negative (NEG) Urine Urobilinogen Dipstick 1.0 mg/dL (0.2 mg/dL) Urine Leukocyte Esterase Negative (NEG) Urine RBC /HPF (0-2) Urine WBC 1-4 /HPF (0-4) Urine Squamous Epithelial Cells Occ /LPF Urine Amorphous Sediment Present /HPF Urine Bacteria Few /HPF (0-FEW) Glucose (Fingerstick) 45 mg/dL (70-99) Test 12/09/19 16:18 12/09/19 17:45 12/09/19 22:21 12/09/19 22:44 Glucose (Fingerstick) 60 mg/dL (70-99) 82 mg/dL (70-99) 43 mg/dL (70-99) 156 mg/dL (70-99) Test 12/10/19 00:20 12/10/19 01:14 12/10/19 01:32 12/10/19 03:50 Glucose (Fingerstick) 60 mg/dL (70-99) 47 mg/dL (70-99) 185 mg/dL (70-99) 59 mg/dL (70-99) Test 12/10/19 05:56 12/10/19 07:26 12/10/19 11:37 12/10/19 16:01 Glucose (Fingerstick) 75 mg/dL (70-99) 111 mg/dL (70-99) 120 mg/dL (70-99) 92 mg/dL (70-99) Test 12/10/19 20:22 12/10/19 22:43 12/10/19 23:05 12/11/19 01:52 Glucose (Fingerstick) 75 mg/dL (70-99) 34 mg/dL (70-99) 152 mg/dL (70-99) 38 mg/dL (70-99) Test 12/11/19 02:18 12/11/19 03:45 12/11/19 05:52 12/11/19 06:17 Glucose (Fingerstick) 132 mg/dL (70-99) 53 mg/dL (70-99) 158 mg/dL (70-99) Sodium Level 140 mmol/L (136-145) Potassium Level 4.5 mmol/L (3.5-5.1) Chloride Level 106 mmol/L (98-107) Carbon Dioxide Level 24 mmol/L (21-32) Anion Gap 10 (6-14) Blood Urea Nitrogen 33 mg/dL (8-26) Creatinine 2.4 mg/dL (0.7-1.3) Estimated GFR (Cockcroft-Gault) 31.2 Glucose Level 50 mg/dL (70-99) Calcium Level 8.1 mg/dL (8.5-10.1) Phosphorus Level 2.6 mg/dL (2.6-4.7) Creatine Kinase 3673 U/L (39-308) Albumin 2.8 g/dL (3.4-5.0) Test 12/11/19 07:55 Glucose (Fingerstick) 98 mg/dL (70-99) Laboratory Tests Test 12/10/19 16:01 12/10/19 20:22 12/10/19 22:43 12/10/19 23:05 Glucose (Fingerstick) 92 mg/dL (70-99) 75 mg/dL (70-99) 34 mg/dL (70-99) 152 mg/dL (70-99) Test 12/11/19 01:52 12/11/19 02:18 12/11/19 03:45 12/11/19 05:52 Glucose (Fingerstick) 38 mg/dL (70-99) 132 mg/dL (70-99) 53 mg/dL (70-99) Sodium Level 140 mmol/L (136-145) Potassium Level 4.5 mmol/L (3.5-5.1) Chloride Level 106 mmol/L (98-107) Carbon Dioxide Level 24 mmol/L (21-32) Anion Gap 10 (6-14) Blood Urea Nitrogen 33 mg/dL (8-26) Creatinine 2.4 mg/dL (0.7-1.3) Estimated GFR (Cockcroft-Gault) 31.2 Glucose Level 50 mg/dL (70-99) Calcium Level 8.1 mg/dL (8.5-10.1) Phosphorus Level 2.6 mg/dL (2.6-4.7) Creatine Kinase 3673 U/L (39-308) Albumin 2.8 g/dL (3.4-5.0) Test 12/11/19 06:17 12/11/19 07:55 Glucose (Fingerstick) 158 mg/dL (70-99) 98 mg/dL (70-99) Medications Active Scripts Medications Dose Route/Sig Max Daily Dose Days Date Category Dose Instructions Warfarin Sodium 3 Mg Tablet 1 Tab PO 1X 1/11/18 Reported Fluticasone Propionate Nasal [place] (Fluticasone Propionate) 16 Gm [place].susp 2 [place] NS DAILY 09/25/17 Reported last dos this am next dose tomorrow am (monday) Lubricant Eye Drops (Propylene Glycol) 10 Ml Drops 10 Ml OP [id number] 09/25/17 Reported last dose after lunch next dose with supper/ bedtime Lubricant Eye Drops (Carboxymethylcellulose Sodium) 1 Each Droperette 1 Each OP HS 09/25/17 Reported last dose last evening next dosetonight provided his own Glipizide 5 Mg Tablet 5 Mg PO DAILYWSUP 07/12/16 Reported last dose last night next dose tonight with supper Glipizide 5 Mg Tablet 2.5 Mg PO DAILY 07/12/16 Reported last dose this am (next dose tomorrow am monday) Loratadine 10 Mg Tablet 10 Mg PO 06/27/16 Reported last dose this am next dose tomorrow am(monday) Omeprazole 20 Mg Capsule.dr 20 Mg PO DAILY 06/27/16 Reported last dose this am next dose tomorrow am (monday) Ferrous Sulfate 325 Mg Tablet 1 Tab PO DAILY 06/27/16 Reported last dose this am next dose tonight Aspir 81 (Aspirin) 81 Mg Tablet.dr 81 Mg PO DAILY 06/27/16 Reported Amlodipine-Benazepril 5-10 Mg (Amlodipine Besylate/Benazepril) 1 Each Capsule 1 Cap PO DAILY 06/27/16 Reported last dos this am next dose tomorrow am (monday) Tamsulosin Hcl 0.4 Mg Cap.er.24h 1 Cap PO DAILY 10/06/14 Reported last dose this am next dose tomorrow am (monday) Simvastatin 20 Mg Tablet 1 Tab PO QHS 10/06/14 Reported last dose last evening next dose tonight Hydrochlorothiazide Tablet (Hydrochlorothiazide) 25 Mg Tablet 1 Tab PO DAILY 10/06/14 Reported last dos this am next dose tomorrow am (monday) Allopurinol 100 Mg Tablet 1 Tab PO DAILY 10/06/14 Reported last dose this am next dose tomorrow on monday Levothyroxine Sodium 50 Mcg Tablet 1 Tab PO DAILY 10/06/14 Reported last dose this am next dose tomorrow am (monday) Impression . 1. This is an 84-year-old, who presents with comorbidities including debility, diabetes, and chronic kidney disease on top of acute kidney disease with abnormal chest x-ray. suspected SARS-CoV-2. Plan . Continue supportive Rx Monitor fever closely broad-spectrum antibiotics. Follow clinical course and make recommendations. He will be maintained in isolation and droplet precaution. Continue his home medications. Renal rec I do appreciate the privilege in sharing in the patient's care. ADITYA FERREIRA MD Dec 11, 2019 12:19
--- NOTE | 2019-12-11 12:20 | PDOC ---
[facility] PROGRESS NOTE Chief Complaint Chief Complaint Pneumonia Chronic renal failure Debility Weakness Fevers Arthritis, diabetes, back surgery, knee surgery and thyroid surgery. History of Present Illness History of Present Illness [id number] Patient seen and examined Chart reviewed Discussed with RN He looks a little better today but very weak Suspect he is going to need alf? [id number] Patient seen and examined Chart reviewed discussed with RN Spoke with his daughter Nayeli Vitals/I&O Vitals/I&O: Vital Signs Date Time Temp Pulse Resp B/P (MAP) Pulse Ox O2 Delivery O2 Flow Rate FiO2 12/11/19 11:00 101.1 85 16 87/51 (63) 92 Room Air 101.1 I & O 12/10/19 12/10/19 12/11/19 14:59 22:59 06:59 Intake Total 440 ml 100 ml Balance 440 ml 100 ml Physical Exam General: Cooperative Heart: Regular rate, Normal S1 Lungs: Wheezing Abdomen: Soft Extremities: No clubbing, No cyanosis Skin: No rashes, No breakdown Labs Labs: Laboratory Tests Test 12/10/19 16:01 12/10/19 20:22 12/10/19 22:43 12/10/19 23:05 Glucose (Fingerstick) 92 mg/dL (70-99) 75 mg/dL (70-99) 34 mg/dL (70-99) 152 mg/dL (70-99) Test 12/11/19 01:52 12/11/19 02:18 12/11/19 03:45 12/11/19 05:52 Glucose (Fingerstick) 38 mg/dL (70-99) 132 mg/dL (70-99) 53 mg/dL (70-99) Sodium Level 140 mmol/L (136-145) Potassium Level 4.5 mmol/L (3.5-5.1) Chloride Level 106 mmol/L (98-107) Carbon Dioxide Level 24 mmol/L (21-32) Anion Gap 10 (6-14) Blood Urea Nitrogen 33 mg/dL (8-26) Creatinine 2.4 mg/dL (0.7-1.3) Estimated GFR (Cockcroft-Gault) 31.2 Glucose Level 50 mg/dL (70-99) Calcium Level 8.1 mg/dL (8.5-10.1) Phosphorus Level 2.6 mg/dL (2.6-4.7) Creatine Kinase 3673 U/L (39-308) Albumin 2.8 g/dL (3.4-5.0) Test 12/11/19 06:17 12/11/19 07:55 12/11/19 12:16 Glucose (Fingerstick) 158 mg/dL (70-99) 98 mg/dL (70-99) 98 mg/dL (70-99) Assessment and Plan Assessmemt and Plan Problems Medical Problems: (1) Bilateral pneumonia Status: Acute (2) Fever Status: Acute (3) Hypoglycemia Status: Acute (4) Renal insufficiency Status: Acute (5) Suspected 2019 novel coronavirus infection Status: Acute (6) Weakness Status: Acute Pneumonia Chronic renal failure Debility Weakness Fevers Arthritis, diabetes, back surgery, knee surgery and thyroid surgery. Plan IV antibiotics Await further input from pulmonary and nephrology Beta agonist O2 Home meds DVT prophylaxis Full code Prognosis long-term guarded Discharge disposition pending Comment Review of Relevant I have reviewed the following items sammie (where applicable) has been applied. Medications: Current Medications Medications (Trade) Dose Ordered Sig/Aga Route PRN Reason Start Time Stop Time Status Last Admin Dose Admin Allopurinol (Zyloprim) 100 mg DAILY PO 12/10/19 17:00 12/11/19 09:21 Aspirin (Ecotrin) 81 mg DAILY PO 12/10/19 17:00 12/11/19 09:21 Ferrous Sulfate (Feosol) 325 mg DAILY08 PO 12/10/19 17:00 12/11/19 09:21 Fluticasone Propionate (Flonase) 2 spray DAILY NS 12/11/19 09:00 12/11/19 09:22 Glipizide (Glucotrol) 5 mg DAILYWSUP PO 12/10/19 17:00 12/11/19 08:03 DC 12/10/19 17:18 Hydrochlorothiazide (Hydrodiuril) 25 mg DAILY PO 12/10/19 17:00 12/11/19 09:21 Levothyroxine Sodium (Synthroid) 50 mcg DAILY06 PO 12/11/19 06:00 12/11/19 05:48 Simvastatin (Zocor) 20 mg QHS PO 12/10/19 21:00 12/10/19 20:11 Tamsulosin HCl (Flomax) 0.4 mg DAILY PO 12/10/19 17:00 12/11/19 09:21 Amlodipine Besylate (Norvasc) 5 mg DAILY PO 12/10/19 17:00 12/11/19 09:20 Pantoprazole Sodium (Protonix) 40 mg DAILYAC PO 12/10/19 16:30 12/11/19 09:21 Cetirizine HCl (ZyrTEC) 10 mg DAILY PO 12/10/19 17:00 12/11/19 09:20 Ceftriaxone Sodium (Rocephin) 1 gm Q24H IVP 12/10/19 18:00 12/10/19 17:19 Lisinopril (Prinivil) 10 mg DAILY PO 12/10/19 17:00 12/11/19 09:21 Azithromycin 500 mg/Sodium Chloride 250 ml @ 250 mls/hr Q24H IV 12/10/19 18:00 12/10/19 17:20 Carbidopa/Levodopa (Sinemet 25/100) 2 tab TID PO 12/10/19 17:00 12/11/19 09:21 EDIE CRISTOBAL III DO Dec 11, 2019 12:20
[2019-12-11 14:57] VITALS: BP 102/59
[2019-12-11] MEDS: AZITHROMYCIN 500 MG in IV NORMAL SALINE 250ML 250 ML IV SCH (17:15)
[2019-12-11] MEDS: cefTRIAXone IV Push 1 GM VIAL. IVP SCH (17:15)
[2019-12-11 19:52] VITALS: BP 98/55
[2019-12-11] MEDS: SIMVASTATIN 20 MG TABLET PO SCH (21:31)
[2019-12-11] MEDS: LACTOBACILLUS RHAMNOSUS GG 1 CAPSULE. PO SCH (21:31)
[2019-12-11 23:00] VITALS: BP 124/60
[2019-12-12 03:03] VITALS: BP 129/61
[2019-12-12] MEDS: LEVOTHYROXINE 50 MCG TABLET PO SCH (05:16)
[2019-12-12 06:09] LABS: ALBUMIN 2.6 g/dL (3.4-5.0); CALCIUM 7.9 mg/dL (8.5-10.1); CREATININE 2.6 mg/dL (0.7-1.3); GFR 28.5; PHOSPHORUS 2.6 mg/dL (2.6-4.7); POTASSIUM 4.6 mmol/L (3.5-5.1)
[2019-12-12 07:00] VITALS: BP 138/62
[2019-12-12] MEDS: PANTOPRAZOLE 40 MG TABLET.DR. PO SCH (07:30)
[2019-12-12] MEDS: ACETAMINOPHEN 650 MG SUPP.RECT. PR PRN ×2 (08:06→17:24)
[2019-12-12] MEDS: LISINOPRIL 10 MG TABLET PO SCH (09:00)
--- NOTE | 2019-12-12 10:18 | PDOC ---
SUBJECTIVE ROS spiked temp, poor po intake per rn OBJECTIVE Vital Signs Vital Signs Date Time Temp Pulse Resp B/P (MAP) Pulse Ox O2 Delivery O2 Flow Rate FiO2 12/12/19 08:00 Nasal Cannula 2.0 12/12/19 07:00 102.0 74 20 138/62 (87) 90 102.0 I & 0 l Intake and Output 12/12/19 07:00 Intake Total 880 ml Output Total 1 ml Balance 879 ml Intake Oral 880 ml Output Urine Total 1 ml # Voids 6 # Bowel Movements 3 PHYSICAL EXAM Physical Exam GENERAL: No apparent distress. Alert HEENT:OM dryish NECK: Supple, LUNGS: Clear to auscultation, decreased at bases, Non labored HEART: RRR, S1, S2 present. ABDOMEN: Soft, nontender. EXTREMITIES: Without any cyanosis, clubbing, or edema. 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 Dinh's care, he didint keep fu appt earlier this year , Last seen by Dr Dinh in Apr 2019 Abnormal chest [id number] SARS-CoV-2 per Pulm Pending results Mildly elevated CK-monitor, currently on Statin Defer to Primary HypoNatremia- Normal now HyperKalemia- Mild at presentation, normal now Renal Cyst- Ct abdomen 2019- 1.8 cm mass at the left renal upper pole may represent a proteinaceous/hemorrhagic cyst but is indeterminate without contrast. Renal ultrasound done in 2019 - focus of different echogenicity of the superior left kidney apparently corresponding with the CT findings Somewhat complicated cyst is favored. COMMENT/RELEVANT DATA Meds Current Medications Medications (Trade) Dose Ordered Sig/Aga Start Time Stop Time Status Last Admin Dose Admin Acetaminophen (Tylenol Supp) 650 mg PRN Q6HRS PRN 12/12/19 07:45 12/12/19 08:06 650 MG Acetaminophen (Tylenol) 1,000 mg PRN Q6HRS PRN 12/09/19 15:30 12/09/19 18:00 DC Allopurinol (Zyloprim) 100 mg DAILY 12/10/19 17:00 12/11/19 09:21 100 MG Amino Acids/ Glycerin/ Electrolytes 1,000 ml @ 50 mls/hr Q20H 12/12/19 10:15 UNV Amlodipine Besylate (Norvasc) 5 mg DAILY 12/10/19 17:00 12/11/19 09:20 5 MG Artificial Tears (Artificial Tears) 1 drop [id number] 12/10/19 17:00 12/10/19 16:44 DC Aspirin (Ecotrin) 81 mg DAILY 12/10/19 17:00 12/11/19 09:21 81 MG Azithromycin 250 ml @ 250 mls/hr 1X ONCE 12/10/19 16:30 12/10/19 17:29 UNV Azithromycin 500 mg/Sodium Chloride 250 ml @ 250 mls/hr Q24H 12/10/19 18:00 12/11/19 17:15 250 MLS/HR Carbidopa/Levodopa (Sinemet 25/100) 2 tab TID 12/10/19 17:00 12/11/19 21:32 2 TAB Ceftriaxone Sodium (Rocephin) 1 gm Q24H 12/10/19 18:00 12/11/19 17:15 1 GM Cetirizine HCl (ZyrTEC) 10 mg DAILY 12/10/19 17:00 12/11/19 09:20 10 MG Dextrose (Dextrose 50%-Water Syringe) 12.5 gm PRN Q15MIN PRN 12/10/19 00:30 12/11/19 05:55 12.5 GM Ferrous Sulfate (Feosol) 325 mg DAILY08 12/10/19 17:00 12/11/19 09:21 325 MG Fluticasone Propionate (Flonase) 2 spray DAILY 12/11/19 09:00 12/11/19 09:22 2 SPRAY Glipizide (Glucotrol) 5 mg DAILYWSUP 12/10/19 17:00 12/11/19 08:03 DC 12/10/19 17:18 5 MG Hydrochlorothiazide (Hydrodiuril) 25 mg DAILY 12/10/19 17:00 12/11/19 09:21 25 MG Lactobacillus Rhamnosus (Culturelle) 1 cap BID 12/11/19 21:00 12/11/19 21:31 1 CAP Levothyroxine Sodium (Synthroid) 50 mcg DAILY06 12/11/19 06:00 12/12/19 05:16 50 MCG Lisinopril (Prinivil) 10 mg DAILY 12/10/19 17:00 12/11/19 09:21 10 MG Non-Formulary Medication (Carboxymethylcellulose Sodium (Lubricant Eye Drops)) 1 each HS 12/10/19 21:00 UNV Pantoprazole Sodium (Protonix) 40 mg DAILYAC 12/10/19 16:30 12/11/19 09:21 40 MG Simvastatin (Zocor) 20 mg QHS 12/10/19 21:00 12/11/19 21:31 20 MG Sodium Polystyrene Sulfonate (Kayexalate) 15 gm 1X ONCE 12/09/19 13:45 12/09/19 13:46 DC 12/09/19 14:35 15 GM Sodium Chloride 1,000 ml @ 150 mls/hr Q6H40M 12/09/19 13:46 12/10/19 13:45 DC 12/10/19 09:00 150 MLS/HR Tamsulosin HCl (Flomax) 0.4 mg DAILY 12/10/19 17:00 12/11/19 09:21 0.4 MG Vancomycin HCl 250 ml @ 250 mls/hr 1X ONCE 12/09/19 13:30 12/09/19 14:29 DC 12/09/19 13:49 250 MLS/HR Warfarin Sodium (Coumadin Per Physician) 1 each PRN DAILY PRN 12/10/19 16:30 12/10/19 16:44 DC Warfarin Sodium (Coumadin) 3 mg 1X 12/10/19 16:00 12/10/19 16:44 DC Lab Laboratory Tests Test 12/11/19 12:16 12/11/19 17:30 12/11/19 20:09 12/12/19 02:49 Glucose (Fingerstick) 98 mg/dL (70-99) 143 mg/dL (70-99) 141 mg/dL (70-99) 101 mg/dL (70-99) Test 12/12/19 04:35 12/12/19 07:13 Sodium Level 137 mmol/L (136-145) Potassium Level 4.6 mmol/L (3.5-5.1) Chloride Level 105 mmol/L (98-107) Carbon Dioxide Level 20 mmol/L (21-32) Anion Gap 12 (6-14) Blood Urea Nitrogen 35 mg/dL (8-26) Creatinine 2.6 mg/dL (0.7-1.3) Estimated GFR (Cockcroft-Gault) 28.5 Glucose Level 86 mg/dL (70-99) Calcium Level 7.9 mg/dL (8.5-10.1) Phosphorus Level 2.6 mg/dL (2.6-4.7) Creatine Kinase 2902 U/L (39-308) Albumin 2.6 g/dL (3.4-5.0) Glucose (Fingerstick) 87 mg/dL (70-99) Results All relevant outside records, renal labs, imaging studies, telemetry/EKG's were reviewed. WILLA ANDREA MD Dec 12, 2019 10:18
[2019-12-12 11:00] VITALS: BP 117/57
--- NOTE | 2019-12-12 11:58 | PDOC ---
[employer] PROGRESS NOTE Chief Complaint Chief Complaint Pneumonia Chronic renal failure Debility Weakness Fevers Arthritis, diabetes, back surgery, knee surgery and thyroid surgery. History of Present Illness History of Present Illness [id number] Patient seen and examined He is still confused and weak Discussed with RN Patient coughed a little bit with some water We are going to get speech therapy eval Also starting some IV PPN Continue in physical therapy occupational therapy and current medications [id number] Patient seen and examined Chart reviewed Discussed with RN He looks a little better today but very weak Suspect he is going to need mcfp? [id number] Patient seen and examined Chart reviewed discussed with RN Spoke with his daughter Nayeli Vitals/I&O Vitals/I&O: Vital Signs Date Time Temp Pulse Resp B/P (MAP) Pulse Ox O2 Delivery O2 Flow Rate FiO2 12/12/19 08:00 Nasal Cannula 2.0 12/12/19 07:00 102.0 74 20 138/62 (87) 90 102.0 I & O 12/11/19 12/11/19 12/12/19 15:00 23:00 07:00 Intake Total 680 ml 200 ml Output Total 1 ml Balance 679 ml 200 ml Physical Exam General: Cooperative, Other (a little confused) Heart: Regular rate, Normal S1 Lungs: Wheezing Abdomen: Soft Extremities: No clubbing, No cyanosis Skin: No rashes, No breakdown Labs Labs: Laboratory Tests Test 12/11/19 12:16 12/11/19 17:30 12/11/19 20:09 12/12/19 02:49 Glucose (Fingerstick) 98 mg/dL (70-99) 143 mg/dL (70-99) 141 mg/dL (70-99) 101 mg/dL (70-99) Test 12/12/19 04:35 12/12/19 07:13 Sodium Level 137 mmol/L (136-145) Potassium Level 4.6 mmol/L (3.5-5.1) Chloride Level 105 mmol/L (98-107) Carbon Dioxide Level 20 mmol/L (21-32) Anion Gap 12 (6-14) Blood Urea Nitrogen 35 mg/dL (8-26) Creatinine 2.6 mg/dL (0.7-1.3) Estimated GFR (Cockcroft-Gault) 28.5 Glucose Level 86 mg/dL (70-99) Calcium Level 7.9 mg/dL (8.5-10.1) Phosphorus Level 2.6 mg/dL (2.6-4.7) Creatine Kinase 2902 U/L (39-308) Albumin 2.6 g/dL (3.4-5.0) Glucose (Fingerstick) 87 mg/dL (70-99) Assessment and Plan Assessmemt and Plan Problems Medical Problems: (1) Bilateral pneumonia Status: Acute (2) Fever Status: Acute (3) Hypoglycemia Status: Acute (4) Renal insufficiency Status: Acute (5) Suspected 2019 novel coronavirus infection Status: Acute (6) Weakness Status: Acute Pneumonia Chronic renal failure Debility Weakness Fevers Arthritis, diabetes, back surgery, knee surgery and thyroid surgery. Plan Add IV PPN Speech therapy eval IV antibiotics Await further input from pulmonary and nephrology Beta agonist O2 Home meds DVT prophylaxis Full code Prognosis long-term guarded Discharge disposition pending Comment Review of Relevant I have reviewed the following items sammie (where applicable) has been applied. Medications: Current Medications Medications (Trade) Dose Ordered Sig/Aga Route PRN Reason Start Time Stop Time Status Last Admin Dose Admin Lactobacillus Rhamnosus (Culturelle) 1 cap BID PO 12/11/19 21:00 12/11/19 21:31 Acetaminophen (Tylenol Supp) 650 mg PRN Q6HRS PRN [place] MILD PAIN / TEMP 12/12/19 07:45 12/12/19 08:06 EDIE CRISTOBAL III DO Dec 12, 2019 11:58
[2019-12-12] MEDS: IV NORMAL SALINE 1000ML BAG 1,000 ML IV SCH (12:02)
[2019-12-12] MEDS: LACTOBACILLUS RHAMNOSUS GG 1 CAPSULE. PO SCH ×2 (12:03→19:51)
[2019-12-12] MEDS: hydroCHLOROthiazide 25 MG TABLET PO SCH (12:03)
[2019-12-12] MEDS: ALLOPURINOL 100 MG TABLET. PO SCH (12:03)
[2019-12-12] MEDS: AMINO AC 3%/ELECTROLYTE/GLYCER 1,000 ML IV SCH (12:03)
[2019-12-12] MEDS: FERROUS SULFATE 325 MG TABLET. PO SCH (12:04)
[2019-12-12] MEDS: CARBIDOPA/LEVODOPA 25/100MG TABLET PO SCH ×3 (12:04→19:51)
[2019-12-12] MEDS: glipiZIDE 5 MG TABLET PO SCH (12:04)
[2019-12-12] MEDS: amLODIPine BESYLATE 5 MG TABLET PO SCH (12:05)
[2019-12-12] MEDS: ASPIRIN ENTERIC COATED 81 MG TABLET.DR. PO SCH (12:05)
[2019-12-12] MEDS: FLUTICASONE 50MCG/NASAL SPRAY 16GM BOTTLE. NS SCH (12:05)
[2019-12-12] MEDS: CETIRIZINE HCL 10 MG TABLET. PO SCH (12:05)
[2019-12-12] MEDS: TAMSULOSIN 0.4 MG CAP.ER.24H. PO SCH (12:05)
[2019-12-12] MEDS: ENOXAPARIN 30 MG/0.3 ML SYRINGE. SQ SCH (14:15)
[2019-12-12 15:00] VITALS: BP 118/56
--- NOTE | 2019-12-12 15:22 | PDOC ---
PULMONARY PROGRESS NOTES Subjective feels better no soa, on RA, occasionally on low flow O2 Vitals Vital Signs Date Time Temp Pulse Resp B/P (MAP) Pulse Ox O2 Delivery O2 Flow Rate FiO2 12/12/19 12:05 85 117/57 12/12/19 11:00 101.6 22 91 2.0 101.6 12/12/19 08:00 Nasal Cannula General: Alert, No acute distress Lungs: Wheezing Cardiovascular: S1 Abdomen: Soft Neuro Exam: Alert Extremities: No Edema Skin: Warm Labs Laboratory Tests Test 12/10/19 16:01 12/10/19 20:22 12/10/19 22:43 12/10/19 23:05 Glucose (Fingerstick) 92 mg/dL (70-99) 75 mg/dL (70-99) 34 mg/dL (70-99) 152 mg/dL (70-99) Test 12/11/19 01:52 12/11/19 02:18 12/11/19 03:45 12/11/19 05:52 Glucose (Fingerstick) 38 mg/dL (70-99) 132 mg/dL (70-99) 53 mg/dL (70-99) Sodium Level 140 mmol/L (136-145) Potassium Level 4.5 mmol/L (3.5-5.1) Chloride Level 106 mmol/L (98-107) Carbon Dioxide Level 24 mmol/L (21-32) Anion Gap 10 (6-14) Blood Urea Nitrogen 33 mg/dL (8-26) Creatinine 2.4 mg/dL (0.7-1.3) Estimated GFR (Cockcroft-Gault) 31.2 Glucose Level 50 mg/dL (70-99) Calcium Level 8.1 mg/dL (8.5-10.1) Phosphorus Level 2.6 mg/dL (2.6-4.7) Creatine Kinase 3673 U/L (39-308) Albumin 2.8 g/dL (3.4-5.0) Test 12/11/19 06:17 12/11/19 07:55 12/11/19 12:16 12/11/19 17:30 Glucose (Fingerstick) 158 mg/dL (70-99) 98 mg/dL (70-99) 98 mg/dL (70-99) 143 mg/dL (70-99) Test 12/11/19 20:09 12/12/19 02:49 12/12/19 04:35 12/12/19 07:13 Glucose (Fingerstick) 141 mg/dL (70-99) 101 mg/dL (70-99) 87 mg/dL (70-99) Sodium Level 137 mmol/L (136-145) Potassium Level 4.6 mmol/L (3.5-5.1) Chloride Level 105 mmol/L (98-107) Carbon Dioxide Level 20 mmol/L (21-32) Anion Gap 12 (6-14) Blood Urea Nitrogen 35 mg/dL (8-26) Creatinine 2.6 mg/dL (0.7-1.3) Estimated GFR (Cockcroft-Gault) 28.5 Glucose Level 86 mg/dL (70-99) Calcium Level 7.9 mg/dL (8.5-10.1) Phosphorus Level 2.6 mg/dL (2.6-4.7) Creatine Kinase 2902 U/L (39-308) Albumin 2.6 g/dL (3.4-5.0) Test 12/12/19 12:31 Glucose (Fingerstick) 113 mg/dL (70-99) Laboratory Tests Test 12/11/19 17:30 12/11/19 20:09 12/12/19 02:49 12/12/19 04:35 Glucose (Fingerstick) 143 mg/dL (70-99) 141 mg/dL (70-99) 101 mg/dL (70-99) Sodium Level 137 mmol/L (136-145) Potassium Level 4.6 mmol/L (3.5-5.1) Chloride Level 105 mmol/L (98-107) Carbon Dioxide Level 20 mmol/L (21-32) Anion Gap 12 (6-14) Blood Urea Nitrogen 35 mg/dL (8-26) Creatinine 2.6 mg/dL (0.7-1.3) Estimated GFR (Cockcroft-Gault) 28.5 Glucose Level 86 mg/dL (70-99) Calcium Level 7.9 mg/dL (8.5-10.1) Phosphorus Level 2.6 mg/dL (2.6-4.7) Creatine Kinase 2902 U/L (39-308) Albumin 2.6 g/dL (3.4-5.0) Test 12/12/19 07:13 12/12/19 12:31 Glucose (Fingerstick) 87 mg/dL (70-99) 113 mg/dL (70-99) Medications Active Scripts Medications Dose Route/Sig Max Daily Dose Days Date Category Dose Instructions Warfarin Sodium 3 Mg Tablet 1 Tab PO 1X 09/28/17 Reported Fluticasone Propionate Nasal [place] (Fluticasone Propionate) 16 Gm [place].susp 2 [place] NS DAILY 09/25/17 Reported last dos this am next dose tomorrow am (monday) Lubricant Eye Drops (Propylene Glycol) 10 Ml Drops 10 Ml OP [id number] 09/25/17 Reported last dose after lunch next dose with supper/ bedtime Lubricant Eye Drops (Carboxymethylcellulose Sodium) 1 Each Droperette 1 Each OP HS 09/25/17 Reported last dose last evening next dosetonight provided his own Glipizide 5 Mg Tablet 5 Mg PO DAILYWSUP 07/12/16 Reported last dose last night next dose tonight with supper Glipizide 5 Mg Tablet 2.5 Mg PO DAILY 07/12/16 Reported last dose this am (next dose tomorrow am monday) Loratadine 10 Mg Tablet 10 Mg PO 06/27/16 Reported last dose this am next dose tomorrow am(monday) Omeprazole 20 Mg Capsule.dr 20 Mg PO DAILY 06/27/16 Reported last dose this am next dose tomorrow am (monday) Ferrous Sulfate 325 Mg Tablet 1 Tab PO DAILY 06/27/16 Reported last dose this am next dose tonight Aspir 81 (Aspirin) 81 Mg Tablet.dr 81 Mg PO DAILY 06/27/16 Reported Amlodipine-Benazepril 5-10 Mg (Amlodipine Besylate/Benazepril) 1 Each Capsule 1 Cap PO DAILY 06/27/16 Reported last dos this am next dose tomorrow am (monday) Tamsulosin Hcl 0.4 Mg Cap.er.24h 1 Cap PO DAILY 10/06/14 Reported last dose this am next dose tomorrow am (monday) Simvastatin 20 Mg Tablet 1 Tab PO QHS 10/06/14 Reported last dose last evening next dose tonight Hydrochlorothiazide Tablet (Hydrochlorothiazide) 25 Mg Tablet 1 Tab PO DAILY 10/06/14 Reported last dos this am next dose tomorrow am (monday) Allopurinol 100 Mg Tablet 1 Tab PO DAILY 10/06/14 Reported last dose this am next dose tomorrow on monday Levothyroxine Sodium 50 Mcg Tablet 1 Tab PO DAILY 10/06/14 Reported last dose this am next dose tomorrow am (monday) Comments scattered infiltrates on admission cxr. Impression . 1. Pneumonia This is an 84-year-old, who presents with comorbidities including debility, diabetes, and chronic kidney disease on top of acute kidney disease with abnormal chest x-ray. suspected SARS-CoV-2. Plan . Continue supportive Rx Monitor fever closely broad-spectrum antibiotics. Follow clinical course and make recommendations. He will be maintained in isolation and droplet precaution. Continue his home medications. Renal rec If he were to worsen, I would add hydroxychloroquine and switch antibiotics to vancomycin and zocyn I do appreciate the privilege in sharing in the patient's care. JOSE LESTER MD Dec 12, 2019 15:22
[2019-12-12] MEDS: AZITHROMYCIN 500 MG in IV NORMAL SALINE 250ML 250 ML IV SCH (17:21)
[2019-12-12] MEDS: cefTRIAXone IV Push 1 GM VIAL. IVP SCH (17:24)
[2019-12-12 19:00] VITALS: BP 139/63
[2019-12-12] MEDS: SIMVASTATIN 20 MG TABLET PO SCH (19:51)
[2019-12-12] MEDS: DEXTROSE 50% 25 GM / 50ML DISP.SYRIN. IV PRN (21:21)
[2019-12-12 23:00] VITALS: BP 140/68
[2019-12-13] VITALS (23 sets, daily range): BP systolic 80–148; BP diastolic 38–66
[2019-12-13] MEDS: ACETAMINOPHEN 650 MG SUPP.RECT. PR PRN (00:30)
[2019-12-13 01:18] LABS: BASE EXCESS ABG -5 mmol/L (-3-3); CORRECTED PCO2 ABG 30 mmHg; CORRECTED PH ABG 7.41; CORRECTED PO2 ABG 61 mmHg; HCO3 ABG 18 mmol/L (21-28); SAT O2 ABG 87 % (92-99)
[2019-12-13 01:20] LABS: PCO2 ABG 27 mmHg (35-46); PO2 ABG 53 mmHg (65-108)
[2019-12-13 01:21] LABS: FIO2 ABG 55
[2019-12-13] MEDS: LEVOTHYROXINE 50 MCG TABLET PO SCH ×2 (02:07→12:45)
[2019-12-13] MEDS: IV NORMAL SALINE 1000ML BAG 1,000 ML IV SCH ×2 (03:37→16:07)
[2019-12-13] MEDS: AMINO AC 3%/ELECTROLYTE/GLYCER 1,000 ML IV SCH ×2 (03:38→11:09)
[2019-12-13 05:04] LABS: BASO % 0 % (0-3); EOS % 0 % (0-3); HEMATOCRIT 37.9 % (39.0-53.0); HEMOGLOBIN 12.2 g/dL (13.0-17.5); LYMPH # 0.7 x10^3/uL (1.0-4.8); LYMPH % 11 % (24-48); MEAN CORPUSCULAR HEMOGLOBIN 29 pg (25-35); MEAN CORPUSCULAR HGB CONC 32 g/dL (31-37); MEAN CORPUSCULAR VOLUME 90 fL (79-100); MONO # 0.5 x10^3/uL (0.0-1.1); MONO % 9 % (0-9); NEUT # 4.7 x10^3/uL (1.8-7.7); NEUT % 80 % (31-73); PLATELET COUNT 109 x10^3/uL (140-400); RED BLOOD COUNT 4.19 x10^6/uL (4.30-5.70); RED CELL DISTRIBUTION WIDTH 16.3 % (11.5-14.5); WHITE BLOOD COUNT 5.9 x10^3/uL (4.0-11.0)
[2019-12-13] MEDS: glipiZIDE 5 MG TABLET PO SCH (07:30)
[2019-12-13] MEDS: PANTOPRAZOLE 40 MG TABLET.DR. PO SCH (07:30)
[2019-12-13] MEDS: FERROUS SULFATE 325 MG TABLET. PO SCH (08:00)
--- NOTE | 2019-12-13 08:10 | RAD ---
Chest AP portable at 0701: Reason for examination: Increased oxygen needs. Comparison is made to previous study dated 12/09/2019. The heart size is normal. Mediastinum is unremarkable. Lung sarabia however show areas of consolidated infiltrates in the right lung field and hazy infiltrates in the left lung field. No gross pleural effusions are seen. No acute bony abnormalities are present. IMPRESSION: Bilateral infiltrates, right greater than left which have progressed since previous exam. Electronically signed by: Grace Meyer MD (12/13/2019 8:07 AM) [facility]
[2019-12-13] MEDS ORDERED: PROPOFOL 100 ML IV ONE ×2 (08:48→09:33)
[2019-12-13] MEDS: LISINOPRIL 10 MG TABLET PO SCH (09:00)
[2019-12-13] MEDS: amLODIPine BESYLATE 5 MG TABLET PO SCH (09:00)
[2019-12-13] MEDS: CARBIDOPA/LEVODOPA 25/100MG TABLET PO SCH ×3 (09:00→20:53)
[2019-12-13] MEDS: hydroCHLOROthiazide 25 MG TABLET PO SCH (09:00)
[2019-12-13] MEDS: ALLOPURINOL 100 MG TABLET. PO SCH (09:00)
[2019-12-13] MEDS: CETIRIZINE HCL 10 MG TABLET. PO SCH (09:00)
[2019-12-13] MEDS: FLUTICASONE 50MCG/NASAL SPRAY 16GM BOTTLE. NS SCH (09:00)
[2019-12-13] MEDS: TAMSULOSIN 0.4 MG CAP.ER.24H. PO SCH (09:00)
[2019-12-13] MEDS ORDERED: VANCOMYCIN 1.5 GM in IV NORMAL SALINE 500ML BAG 500 ML IV ONE (10:00)
[2019-12-13] MEDS ORDERED: MORPHINE SULFATE 2 MG/ML VIAL. IV PRN (10:15)
[2019-12-13] MEDS ORDERED: MORPHINE SULFATE 4 MG/ML VIAL. IV PRN (10:15)
--- NOTE | 2019-12-13 10:18 | PDOC ---
SUBJECTIVE ROS Intubated now OBJECTIVE Vital Signs Vital Signs Date Time Temp Pulse Resp B/P (MAP) Pulse Ox O2 Delivery O2 Flow Rate FiO2 12/13/19 09:15 93 Ventilator 12/13/19 06:18 87 29 136/59 (84) 12/13/19 03:42 99.7 99.7 12/12/19 20:00 2.0 I & 0 Intake and Output 12/13/19 07:00 Intake Total 440 ml Output Total 500 ml Balance -60 ml Intake Oral 440 ml Output Urine Total 500 ml # Voids 7 # Bowel Movements 1 PHYSICAL EXAM Physical Exam GENERAL: intubated HEENT: Intubated NECK: Supple, LUNGS: Clear to auscultation, decreased at bases, Non labored HEART: RRR, S1, S2 present. ABDOMEN: Soft, nontender. EXTREMITIES: Without any cyanosis, clubbing, or edema. 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 Dinh's care, he didint keep fu appt earlier this year , Last seen by Dr Dinh in Apr 2019 Abnormal chest [id number] SARS-CoV-2 per Pulm Pending results Mildly elevated CK-monitor, currently on Statin Defer to Primary HypoNatremia HyperKalemia- Mild at presentation Renal Cyst- Ct abdomen 2019- 1.8 cm mass at the left renal upper pole may represent a proteinaceous/hemorrhagic cyst but is indeterminate without cont rast. Renal ultrasound done in 2019 - focus of different echogenicity of the superior left kidney apparently corresponding with the CT findings Somewhat complicated cyst is favored. COMMENT/RELEVANT DATA Meds Current Medications Medications (Trade) Dose Ordered Sig/Aga Start Time Stop Time Status Last Admin Dose Admin Acetaminophen (Tylenol Supp) 650 mg PRN Q6HRS PRN 12/12/19 07:45 12/13/19 00:30 650 MG Acetaminophen (Tylenol) 1,000 mg PRN Q6HRS PRN 12/09/19 15:30 12/09/19 18:00 DC Allopurinol (Zyloprim) 100 mg DAILY 12/10/19 17:00 12/12/19 12:03 100 MG Amino Acids/ Glycerin/ Electrolytes 1,000 ml @ 50 mls/hr Q20H 12/12/19 10:15 12/12/19 12:03 50 MLS/HR Amlodipine Besylate (Norvasc) 5 mg DAILY 12/10/19 17:00 12/12/19 12:05 5 MG Artificial Tears (Artificial Tears) 1 drop [id number] 12/10/19 17:00 12/10/19 16:44 DC Aspirin (Ecotrin) 81 mg DAILY 12/10/19 17:00 12/12/19 12:05 81 MG Azithromycin 250 ml @ 250 mls/hr 1X ONCE 12/10/19 16:30 12/10/19 17:29 UNV Azithromycin 500 mg/Sodium Chloride 250 ml @ 250 mls/hr Q24H 12/10/19 18:00 12/12/19 17:21 250 MLS/HR Carbidopa/Levodopa (Sinemet 25/100) 2 tab TID 12/10/19 17:00 12/12/19 12:04 2 TAB Ceftriaxone Sodium (Rocephin) 1 gm Q24H 12/10/19 18:00 12/13/19 09:07 DC 12/12/19 17:24 1 GM Cetirizine HCl (ZyrTEC) 10 mg DAILY 12/10/19 17:00 12/12/19 12:05 10 MG Dextrose (Dextrose 50%-Water Syringe) 12.5 gm PRN Q15MIN PRN 12/10/19 00:30 12/12/19 21:21 12.5 GM Enoxaparin Sodium (Lovenox 30mg Syringe) 30 mg Q24H 12/12/19 12:00 12/12/19 14:15 30 MG Ferrous Sulfate (Feosol) 325 mg DAILY08 12/10/19 17:00 12/12/19 12:04 325 MG Fluticasone Propionate (Flonase) 2 spray DAILY 12/11/19 09:00 12/12/19 12:05 2 SPRAY Glipizide (Glucotrol) 5 mg DAILYWSUP 12/10/19 17:00 12/11/19 08:03 DC 12/10/19 17:18 5 MG Hydrochlorothiazide (Hydrodiuril) 25 mg DAILY 12/10/19 17:00 12/12/19 12:03 25 MG Hydroxychloroquine Sulfate (Plaquenil) 200 mg BID 12/15/19 09:00 12/17/19 21:01 Lactobacillus Rhamnosus (Culturelle) 1 cap BID 12/11/19 21:00 12/12/19 12:03 1 CAP Levothyroxine Sodium (Synthroid) 50 mcg DAILY06 12/11/19 06:00 12/12/19 05:16 50 MCG Lisinopril (Prinivil) 10 mg DAILY 12/10/19 17:00 12/11/19 09:21 10 MG Non-Formulary Medication (Carboxymethylcellulose Sodium (Lubricant Eye Drops)) 1 each HS 12/10/19 21:00 UNV Pantoprazole Sodium (Protonix) 40 mg DAILYAC 12/10/19 16:30 12/11/19 09:21 40 MG Piperacillin Sod/ Tazobactam Sod 3.375 gm/Sodium Chloride 50 ml @ 100 mls/hr Q6HRS 12/13/19 10:00 Piperacillin Sod/ Tazobactam Sod 4.5 gm/Sodium Chloride 100 ml @ 200 mls/hr Q6HRS 12/13/19 12:00 UNV Simvastatin (Zocor) 20 mg QHS 12/10/19 21:00 12/11/19 21:31 20 MG Sodium Polystyrene Sulfonate (Kayexalate) 15 gm 1X ONCE 12/09/19 13:45 12/09/19 13:46 DC 12/09/19 14:35 15 GM Sodium Chloride 1,000 ml @ 75 mls/hr [id number] 12/12/19 11:00 12/13/19 03:37 75 MLS/HR Tamsulosin HCl (Flomax) 0.4 mg DAILY 12/10/19 17:00 12/12/19 12:05 0.4 MG Vancomycin HCl (Vanco Per Pharmacy) 1 each PRN DAILY PRN 12/13/19 09:00 Vancomycin HCl 1.5 gm/Sodium Chloride 500 ml @ 250 mls/hr 1X ONCE 12/13/19 10:00 12/13/19 11:59 Warfarin Sodium (Coumadin Per Physician) 1 each PRN DAILY PRN 12/10/19 16:30 12/10/19 16:44 DC Warfarin Sodium (Coumadin) 3 mg 1X 12/10/19 16:00 12/10/19 16:44 DC Lab Laboratory Tests Test 12/12/19 12:31 12/12/19 16:47 12/12/19 20:59 12/12/19 21:13 Glucose (Fingerstick) 113 mg/dL (70-99) 107 mg/dL (70-99) 63 mg/dL (70-99) 154 mg/dL (70-99) Test 12/13/19 01:04 12/13/19 02:24 12/13/19 05:00 O2 Saturation 87 % (92-99) Arterial Blood pH 7.44 (7.35-7.45) Arterial Blood pH (Temp corrected) 7.41 Arterial Blood pCO2 at Patient Temp 27 mmHg (35-46) Arterial Blood pCO2 (Temp correct) 30 mmHg Arterial Blood pO2 at Patient Temp 53 mmHg (65-108) Arterial Blood pO2 (Temp corrected) 61 mmHg Arterial Blood HCO3 18 mmol/L (21-28) Arterial Blood Base Excess -5 mmol/L (-3-3) FiO2 55 Glucose (Fingerstick) 105 mg/dL (70-99) White Blood Count 5.9 x10^3/uL (4.0-11.0) Red Blood Count 4.19 x10^6/uL (4.30-5.70) Hemoglobin 12.2 g/dL (13.0-17.5) Hematocrit 37.9 % (39.0-53.0) Mean Corpuscular Volume 90 fL (79-100) Mean Corpuscular Hemoglobin 29 pg (25-35) Mean Corpuscular Hemoglobin Concent 32 g/dL (31-37) Red Cell Distribution Width 16.3 % (11.5-14.5) Platelet Count 109 x10^3/uL (140-400) Neutrophils (%) (Auto) 80 % (31-73) Lymphocytes (%) (Auto) 11 % (24-48) Monocytes (%) (Auto) 9 % (0-9) Eosinophils (%) (Auto) 0 % (0-3) Basophils (%) (Auto) 0 % (0-3) Neutrophils # (Auto) 4.7 x10^3/uL (1.8-7.7) Lymphocytes # (Auto) 0.7 x10^3/uL (1.0-4.8) Monocytes # (Auto) 0.5 x10^3/uL (0.0-1.1) Eosinophils # (Auto) 0.0 x10^3/uL (0.0-0.7) Basophils # (Auto) 0.0 x10^3/uL (0.0-0.2) Results All relevant outside records, renal labs, imaging studies, telemetry/EKG's were reviewed. Other Bilateral infiltrates, right greater than left which have progressed since previous exam. WILLA ANDREA MD Dec 13, 2019 10:18
--- NOTE | 2019-12-13 10:24 | PDOC ---
PULMONARY PROGRESS NOTES Subjective Patient was stable yesterday afternoon when seen. He deteriorated and became more soa and hypoxic. O2 titrated up, but progressive deterioration. transferred to ICU and placed on bipap. he continued to struggle and was marginal on oxygenation. He was recently intubated. CXR this AM prior to intubation shows marked bilateral worsening of infiltrates. Vitals Vital Signs Date Time Temp Pulse Resp B/P (MAP) Pulse Ox O2 Delivery O2 Flow Rate FiO2 12/13/19 09:15 93 Ventilator 12/13/19 06:18 87 29 136/59 (84) 12/13/19 03:42 99.7 99.7 12/12/19 20:00 2.0 Comments intubated. still agitated at my exam, but sedation started. Lungs: Other (equal breath sounds. no wheezing) Cardiovascular: S1, S2 Abdomen: Soft Extremities: No Edema Skin: Warm Labs Laboratory Tests Test 12/11/19 12:16 12/11/19 17:30 12/11/19 20:09 12/12/19 02:49 Glucose (Fingerstick) 98 mg/dL (70-99) 143 mg/dL (70-99) 141 mg/dL (70-99) 101 mg/dL (70-99) Test 12/12/19 04:35 12/12/19 07:13 12/12/19 12:31 12/12/19 16:47 Sodium Level 137 mmol/L (136-145) Potassium Level 4.6 mmol/L (3.5-5.1) Chloride Level 105 mmol/L (98-107) Carbon Dioxide Level 20 mmol/L (21-32) Anion Gap 12 (6-14) Blood Urea Nitrogen 35 mg/dL (8-26) Creatinine 2.6 mg/dL (0.7-1.3) Estimated GFR (Cockcroft-Gault) 28.5 Glucose Level 86 mg/dL (70-99) Calcium Level 7.9 mg/dL (8.5-10.1) Phosphorus Level 2.6 mg/dL (2.6-4.7) Creatine Kinase 2902 U/L (39-308) Albumin 2.6 g/dL (3.4-5.0) Glucose (Fingerstick) 87 mg/dL (70-99) 113 mg/dL (70-99) 107 mg/dL (70-99) Test 12/12/19 20:59 12/12/19 21:13 12/13/19 01:04 12/13/19 02:24 Glucose (Fingerstick) 63 mg/dL (70-99) 154 mg/dL (70-99) 105 mg/dL (70-99) O2 Saturation 87 % (92-99) Arterial Blood pH 7.44 (7.35-7.45) Arterial Blood pH (Temp corrected) 7.41 Arterial Blood pCO2 at Patient Temp 27 mmHg (35-46) Arterial Blood pCO2 (Temp correct) 30 mmHg Arterial Blood pO2 at Patient Temp 53 mmHg (65-108) Arterial Blood pO2 (Temp corrected) 61 mmHg Arterial Blood HCO3 18 mmol/L (21-28) Arterial Blood Base Excess -5 mmol/L (-3-3) FiO2 55 Test 12/13/19 05:00 White Blood Count 5.9 x10^3/uL (4.0-11.0) Red Blood Count 4.19 x10^6/uL (4.30-5.70) Hemoglobin 12.2 g/dL (13.0-17.5) Hematocrit 37.9 % (39.0-53.0) Mean Corpuscular Volume 90 fL (79-100) Mean Corpuscular Hemoglobin 29 pg (25-35) Mean Corpuscular Hemoglobin Concent 32 g/dL (31-37) Red Cell Distribution Width 16.3 % (11.5-14.5) Platelet Count 109 x10^3/uL (140-400) Neutrophils (%) (Auto) 80 % (31-73) Lymphocytes (%) (Auto) 11 % (24-48) Monocytes (%) (Auto) 9 % (0-9) Eosinophils (%) (Auto) 0 % (0-3) Basophils (%) (Auto) 0 % (0-3) Neutrophils # (Auto) 4.7 x10^3/uL (1.8-7.7) Lymphocytes # (Auto) 0.7 x10^3/uL (1.0-4.8) Monocytes # (Auto) 0.5 x10^3/uL (0.0-1.1) Eosinophils # (Auto) 0.0 x10^3/uL (0.0-0.7) Basophils # (Auto) 0.0 x10^3/uL (0.0-0.2) Laboratory Tests Test 12/12/19 12:31 12/12/19 16:47 12/12/19 20:59 12/12/19 21:13 Glucose (Fingerstick) 113 mg/dL (70-99) 107 mg/dL (70-99) 63 mg/dL (70-99) 154 mg/dL (70-99) Test 12/13/19 01:04 12/13/19 02:24 12/13/19 05:00 O2 Saturation 87 % (92-99) Arterial Blood pH 7.44 (7.35-7.45) Arterial Blood pH (Temp corrected) 7.41 Arterial Blood pCO2 at Patient Temp 27 mmHg (35-46) Arterial Blood pCO2 (Temp correct) 30 mmHg Arterial Blood pO2 at Patient Temp 53 mmHg (65-108) Arterial Blood pO2 (Temp corrected) 61 mmHg Arterial Blood HCO3 18 mmol/L (21-28) Arterial Blood Base Excess -5 mmol/L (-3-3) FiO2 55 Glucose (Fingerstick) 105 mg/dL (70-99) White Blood Count 5.9 x10^3/uL (4.0-11.0) Red Blood Count 4.19 x10^6/uL (4.30-5.70) Hemoglobin 12.2 g/dL (13.0-17.5) Hematocrit 37.9 % (39.0-53.0) Mean Corpuscular Volume 90 fL (79-100) Mean Corpuscular Hemoglobin 29 pg (25-35) Mean Corpuscular Hemoglobin Concent 32 g/dL (31-37) Red Cell Distribution Width 16.3 % (11.5-14.5) Platelet Count 109 x10^3/uL (140-400) Neutrophils (%) (Auto) 80 % (31-73) Lymphocytes (%) (Auto) 11 % (24-48) Monocytes (%) (Auto) 9 % (0-9) Eosinophils (%) (Auto) 0 % (0-3) Basophils (%) (Auto) 0 % (0-3) Neutrophils # (Auto) 4.7 x10^3/uL (1.8-7.7) Lymphocytes # (Auto) 0.7 x10^3/uL (1.0-4.8) Monocytes # (Auto) 0.5 x10^3/uL (0.0-1.1) Eosinophils # (Auto) 0.0 x10^3/uL (0.0-0.7) Basophils # (Auto) 0.0 x10^3/uL (0.0-0.2) Medications Active Scripts Medications Dose Route/Sig Max Daily Dose Days Date Category Dose Instructions Warfarin Sodium 3 Mg Tablet 1 Tab PO 1X 09/28/17 Reported Fluticasone Propionate Nasal [place] (Fluticasone Propionate) 16 Gm [place].susp 2 [place] NS DAILY 09/25/17 Reported last dos this am next dose tomorrow am (monday) Lubricant Eye Drops (Propylene Glycol) 10 Ml Drops 10 Ml OP [id number] 09/25/17 Reported last dose after lunch next dose with supper/ bedtime Lubricant Eye Drops (Carboxymethylcellulose Sodium) 1 Each Droperette 1 Each OP HS 09/25/17 Reported last dose last evening next dosetonight provided his own Glipizide 5 Mg Tablet 5 Mg PO DAILYWSUP 07/12/16 Reported last dose last night next dose tonight with supper Glipizide 5 Mg Tablet 2.5 Mg PO DAILY 07/12/16 Reported last dose this am (next dose tomorrow am monday) Loratadine 10 Mg Tablet 10 Mg PO 06/27/16 Reported last dose this am next dose tomorrow am(monday) Omeprazole 20 Mg Capsule.dr 20 Mg PO DAILY 06/27/16 Reported last dose this am next dose tomorrow am (monday) Ferrous Sulfate 325 Mg Tablet 1 Tab PO DAILY 06/27/16 Reported last dose this am next dose tonight Aspir 81 (Aspirin) 81 Mg Tablet.dr 81 Mg PO DAILY 06/27/16 Reported Amlodipine-Benazepril 5-10 Mg (Amlodipine Besylate/Benazepril) 1 Each Capsule 1 Cap PO DAILY 06/27/16 Reported last dos this am next dose tomorrow am (monday) Tamsulosin Hcl 0.4 Mg Cap.er.24h 1 Cap PO DAILY 10/06/14 Reported last dose this am next dose tomorrow am (monday) Simvastatin 20 Mg Tablet 1 Tab PO QHS 10/06/14 Reported last dose last evening next dose tonight Hydrochlorothiazide Tablet (Hydrochlorothiazide) 25 Mg Tablet 1 Tab PO DAILY 10/06/14 Reported last dos this am next dose tomorrow am (monday) Allopurinol 100 Mg Tablet 1 Tab PO DAILY 10/06/14 Reported last dose this am next dose tomorrow on monday Levothyroxine Sodium 50 Mcg Tablet 1 Tab PO DAILY 10/06/14 Reported last dose this am next dose tomorrow am (monday) Comments marked worsening on todays film pre-intubation 12/12 Impression . 1. Acute respiratory failure secondary to neumonia 2. Pneumonia, Covid suspect. 3. diabetes This is an 84-year-old, who presents with comorbidities including debility, diabetes, and chronic kidney disease on top of acute kidney disease with abnormal chest x-ray. suspected SARS-CoV-2. Plan . 1.Mechanical ventilation started with low TV-PEEP. Will adjust as appropriate once sedation takes effect 2. Empiric hydroxychloroquine started (Covid results taking several days unfortunately) 3. antibiotics switched to Vancomycin and Zosyn 4. Consider Tocilizumab if he continues to worsen Time spent managing resp failure, reviewing labs, xrays and examining patient 45 min so far. JOSE LESTER MD Dec 13, 2019 10:24
--- NOTE | 2019-12-13 11:01 | RAD ---
AP abdomen radiograph 12/13/2019 CLINICAL HISTORY: OG tube placement. An AP supine portable digital radiograph of the mid/lower chest to include the upper/mid abdomen was performed. An OG tube is seen. The tip of this tube overlies the lateral aspect of the body of the stomach. The abdominal bowel gas pattern is nonspecific. The cardiac silhouette is mildly enlarged. Patchy left lower lobe atelectasis and/ or infiltrate is noted. Degenerative changes are seen involving the visualized thoracic and lumbar spine. IMPRESSION: The tip of the OG tube overlies the body of the stomach. Electronically signed by: Keith Brewer MD (12/13/2019 10:58 AM) [id number]
--- NOTE | 2019-12-13 11:01 | RAD ---
CHEST AP ONLY History: Intubation. Comparison with 12/13/2019 7:01 AM. FINDINGS: Cardiomediastinal silhouette is nonenlarged. No evidence of pneumothorax. Bilateral pulmonary infiltrates are again identified, greatest in the mid to lower lungs. There is improved expansion and aeration of both lungs on today's study. No new area of lobar consolidation is seen. There may be trace pleural effusions. Bones appear grossly intact. IMPRESSION: Persistent infiltrates and/or edema in both lungs, greater in the mid to lower aspects. Overall improved expansion and aeration of both lungs since study of earlier today. Electronically signed by: Mega Amato MD (12/13/2019 10:58 AM) [id number]
[2019-12-13] MEDS: PIPERACILLIN/TAZOBACTAM 3.375 GM in IV NORMAL SALINE 50ML 50 ML IV SCH ×3 (11:11→17:45)
[2019-12-13] MEDS: PROPOFOL 100 ML IV PRN ×2 (11:13→14:09)
[2019-12-13 11:47] LABS: ALBUMIN 2.4 g/dL (3.4-5.0); ALBUMIN/GLOBULIN RATIO 0.6 (1.0-1.7); ALK PHOS 50 U/L (46-116); ALT (SGPT) 35 U/L (16-63); ANION GAP 14 (6-14); AST (SGOT) 134 U/L (15-37); BLOOD UREA NITROGEN 37 mg/dL (8-26); BUN/CREATININE RATIO 15 (6-20); CARBON DIOXIDE 19 mmol/L (21-32); CHLORIDE 105 mmol/L (98-107); CREATININE 2.4 mg/dL (0.7-1.3); DIRECT BILIRUBIN < 0.1 mg/dL (0.0-0.2); GFR 31.2; GLUCOSE 84 mg/dL (70-99); SODIUM 138 mmol/L (136-145); TOTAL BILIRUBIN 0.4 mg/dL (0.2-1.0); TOTAL PROTEIN 6.6 g/dL (6.4-8.2)
[2019-12-13 11:48] LABS: POTASSIUM 5.3 mmol/L (3.5-5.1)
--- NOTE | 2019-12-13 11:53 | PDOC ---
[facility] PROGRESS NOTE Chief Complaint Chief Complaint Pneumonia Chronic renal failure Debility Weakness Fevers Arthritis, diabetes, back surgery, knee surgery and thyroid surgery. History of Present Illness History of Present Illness [id number] Patient seen and examined now transferred to the ICU In respiratory isolation and intubated On 100% oxygen assist-control He is extremely critically ill Chart reviewed Discussed with RN [id number] Patient seen and examined He is still confused and weak Discussed with RN Patient coughed a little bit with some water We are going to get speech therapy eval Also starting some IV PPN Continue in physical therapy occupational therapy and current medications [id number] Patient seen and examined Chart reviewed Discussed with RN He looks a little better today but very weak Suspect he is going to need mcfp? [id number] Patient seen and examined Chart reviewed discussed with RN Spoke with his daughter Nayeli Vitals/I&O Vitals/I&O: Vital Signs Date Time Temp Pulse Resp B/P (MAP) Pulse Ox O2 Delivery O2 Flow Rate FiO2 12/13/19 09:15 93 Ventilator 12/13/19 06:18 87 29 136/59 (84) 12/13/19 03:42 99.7 99.7 12/12/19 20:00 2.0 I & O 12/12/19 12/12/19 12/13/19 15:00 23:00 07:00 Intake Total 240 ml 200 ml 0 ml Output Total 200 ml 300 ml Balance 40 ml 200 ml -300 ml Physical Exam General: Other (sedated and intubated) Heart: No murmurs, Other (tachycardic at 102 bpm distant S1-S2) Lungs: Wheezing, Crackles, Other (equal breath sounds. no wheezing) Abdomen: Soft Extremities: No clubbing, No cyanosis Skin: No rashes, No breakdown Labs Labs: Laboratory Tests Test 12/12/19 12:31 12/12/19 16:47 12/12/19 20:59 12/12/19 21:13 Glucose (Fingerstick) 113 mg/dL (70-99) 107 mg/dL (70-99) 63 mg/dL (70-99) 154 mg/dL (70-99) Test 12/13/19 01:04 12/13/19 02:24 12/13/19 05:00 O2 Saturation 87 % (92-99) Arterial Blood pH 7.44 (7.35-7.45) Arterial Blood pH (Temp corrected) 7.41 Arterial Blood pCO2 at Patient Temp 27 mmHg (35-46) Arterial Blood pCO2 (Temp correct) 30 mmHg Arterial Blood pO2 at Patient Temp 53 mmHg (65-108) Arterial Blood pO2 (Temp corrected) 61 mmHg Arterial Blood HCO3 18 mmol/L (21-28) Arterial Blood Base Excess -5 mmol/L (-3-3) FiO2 55 Glucose (Fingerstick) 105 mg/dL (70-99) White Blood Count 5.9 x10^3/uL (4.0-11.0) Red Blood Count 4.19 x10^6/uL (4.30-5.70) Hemoglobin 12.2 g/dL (13.0-17.5) Hematocrit 37.9 % (39.0-53.0) Mean Corpuscular Volume 90 fL (79-100) Mean Corpuscular Hemoglobin 29 pg (25-35) Mean Corpuscular Hemoglobin Concent 32 g/dL (31-37) Red Cell Distribution Width 16.3 % (11.5-14.5) Platelet Count 109 x10^3/uL (140-400) Neutrophils (%) (Auto) 80 % (31-73) Lymphocytes (%) (Auto) 11 % (24-48) Monocytes (%) (Auto) 9 % (0-9) Eosinophils (%) (Auto) 0 % (0-3) Basophils (%) (Auto) 0 % (0-3) Neutrophils # (Auto) 4.7 x10^3/uL (1.8-7.7) Lymphocytes # (Auto) 0.7 x10^3/uL (1.0-4.8) Monocytes # (Auto) 0.5 x10^3/uL (0.0-1.1) Eosinophils # (Auto) 0.0 x10^3/uL (0.0-0.7) Basophils # (Auto) 0.0 x10^3/uL (0.0-0.2) Sodium Level 138 mmol/L (136-145) Potassium Level 5.3 mmol/L (3.5-5.1) Chloride Level 105 mmol/L (98-107) Carbon Dioxide Level 19 mmol/L (21-32) Anion Gap 14 (6-14) Blood Urea Nitrogen 37 mg/dL (8-26) Creatinine 2.4 mg/dL (0.7-1.3) Estimated GFR (Cockcroft-Gault) 31.2 BUN/Creatinine Ratio 15 (6-20) Glucose Level 84 mg/dL (70-99) Calcium Level 8.0 mg/dL (8.5-10.1) Total Bilirubin 0.4 mg/dL (0.2-1.0) Direct Bilirubin < 0.1 mg/dL (0.0-0.2) Aspartate Amino Transf (AST/SGOT) 134 U/L (15-37) Alanine Aminotransferase (ALT/SGPT) 35 U/L (16-63) Alkaline Phosphatase 50 U/L (46-116) Total Protein 6.6 g/dL (6.4-8.2) Albumin 2.4 g/dL (3.4-5.0) Albumin/Globulin Ratio 0.6 (1.0-1.7) Review of Systems Review of Systems: Unable to obtain Assessment and Plan Assessmemt and Plan Problems Medical Problems: (1) Bilateral pneumonia Status: Acute (2) Fever Status: Acute (3) Hypoglycemia Status: Acute (4) Renal insufficiency Status: Acute (5) Suspected 2019 novel coronavirus infection Status: Acute (6) Weakness Status: Acut Fulminant respiratory failure requiring mechanical ventilation Pneumonia Possible Covid 19? Chronic renal failure Debility Weakness Fevers Arthritis, diabetes, back surgery, knee surgery and thyroid surgery. Plan ICU monitoring Mechanical ventilation Await further input from pulmonary and nephrology Beta agonist Trend labs Home meds DVT prophylaxis Full code Await Covid 19 testing results He is extremely critically ill Total time 32 minutes Comment Review of Relevant I have reviewed the following items sammie (where applicable) has been applied. Medications: Current Medications Medications (Trade) Dose Ordered Sig/Aga Route PRN Reason Start Time Stop Time Status Last Admin Dose Admin Enoxaparin Sodium (Lovenox 30mg Syringe) 30 mg Q24H SQ 12/12/19 12:00 12/12/19 14:15 Piperacillin Sod/ Tazobactam Sod 3.375 gm/Sodium Chloride 50 ml @ 100 mls/hr Q6HRS IV 12/13/19 10:00 12/13/19 11:11 Vancomycin HCl 1.5 gm/Sodium Chloride 500 ml @ 250 mls/hr 1X ONCE IV 12/13/19 10:00 12/13/19 11:59 12/13/19 11:11 Propofol 100 ml @ 1.05 mls/hr CONT PRN IV SEE I/O RECORD 12/13/19 10:30 12/13/19 11:13 EDIE CRISTOBAL III DO Dec 13, 2019 11:53
[2019-12-13] MEDS ORDERED: PIPERACILLIN/TAZOBACTAM 4.5 GM in IV NORMAL SALINE 100ML 100 ML IV SCH (12:00)
[2019-12-13 12:20] LABS: BASE EXCESS ABG -7 mmol/L (-3-3); HCO3 ABG 17 mmol/L (21-28); PCO2 ABG 28 mmHg (35-46); PO2 ABG 142 mmHg (65-108); SAT O2 ABG 98 % (92-99)
[2019-12-13] MEDS: HYDROXYCHLOROQUINE 200 MG TABLET PO SCH ×2 (12:41→20:53)
[2019-12-13] MEDS: ASPIRIN ENTERIC COATED 81 MG TABLET.DR. PO SCH (12:42)
[2019-12-13] MEDS: ENOXAPARIN 30 MG/0.3 ML SYRINGE. SQ SCH (12:42)
[2019-12-13] MEDS: LACTOBACILLUS RHAMNOSUS GG 1 CAPSULE. PO SCH ×2 (12:47→20:52)
[2019-12-13 12:59] LABS: FIO2 ABG 100%
--- NOTE | 2019-12-13 15:13 | PDOC ---
Provider Note Provider Note Late entry-- Called to intubate patient this AM for respiratory failure. FiO2 80% in ICU and O2 sat mid 90's. Inspired O2 increased to 100% as I arrived at bedside. Suspect possible COVID case. Full PPE worn for intubation. BP and pulse essentially WNL. IV meds-Propofol 70 mg and Anectine 120 mg. Intubated with ease first attempt with Glidescope and #7.5 cuffed ETT. +ETCO2. Taped at 24 cm. CXR pending. Placed on vert per Pulm. service. MD PRANAY Martin,DORIAN Rossi MD Dec 13, 2019 15:13
[2019-12-13] MEDS: VANCOMYCIN PER PHARMACY MC PRN (15:32)
[2019-12-13] MEDS: NOREPINEPHRINE VIAL 8 MG in IV DEXTROSE 5% 250 ML IV PRN (16:03)
[2019-12-13] MEDS: CHLORHEXIDINE 0.12% 15 ML MOUTHWASH. MM SCH (20:52)
[2019-12-14] VITALS (23 sets, daily range): BP systolic 66–149; BP diastolic 37–70
[2019-12-14] MEDS: PIPERACILLIN/TAZOBACTAM 3.375 GM in IV NORMAL SALINE 50ML 50 ML IV SCH ×4 (00:30→19:06)
[2019-12-14] MEDS: IV NORMAL SALINE 1000ML BAG 1,000 ML IV SCH ×2 (03:00→20:25)
[2019-12-14 04:57] LABS: BASO % 0 % (0-3); EOS # 0.1 x10^3/uL (0.0-0.7); EOS % 1 % (0-3); HEMATOCRIT 33.3 % (39.0-53.0); HEMOGLOBIN 10.7 g/dL (13.0-17.5); LYMPH # 0.7 x10^3/uL (1.0-4.8); LYMPH % 10 % (24-48); MEAN CORPUSCULAR HEMOGLOBIN 29 pg (25-35); MEAN CORPUSCULAR HGB CONC 32 g/dL (31-37); MEAN CORPUSCULAR VOLUME 91 fL (79-100); MONO # 0.5 x10^3/uL (0.0-1.1); MONO % 7 % (0-9); NEUT % 82 % (31-73); PLATELET COUNT 102 x10^3/uL (140-400); RED BLOOD COUNT 3.67 x10^6/uL (4.30-5.70); RED CELL DISTRIBUTION WIDTH 16.5 % (11.5-14.5); WHITE BLOOD COUNT 7.2 x10^3/uL (4.0-11.0)
[2019-12-14] MEDS ORDERED: VANCOMYCIN RANDOM LEVEL. MC ONE (05:00)
[2019-12-14 05:19] LABS: ALBUMIN 1.9 g/dL (3.4-5.0); CALCIUM 7.8 mg/dL (8.5-10.1); GFR 38.5; PHOSPHORUS 2.7 mg/dL (2.6-4.7); POTASSIUM 5.2 mmol/L (3.5-5.1)
[2019-12-14] MEDS: AMINO AC 3%/ELECTROLYTE/GLYCER 1,000 ML IV SCH (05:57)
[2019-12-14] MEDS: LEVOTHYROXINE 50 MCG TABLET PO SCH (05:57)
[2019-12-14] MEDS: PANTOPRAZOLE 40 MG TABLET.DR. PO SCH (07:30)
[2019-12-14] MEDS: glipiZIDE 5 MG TABLET PO SCH (07:30)
[2019-12-14] MEDS: FERROUS SULFATE 325 MG TABLET. PO SCH (07:51)
[2019-12-14] MEDS: VANCOMYCIN PER PHARMACY MC PRN ×2 (08:37→09:00)
[2019-12-14] MEDS: VANCOMYCIN 1 GM in IV NORMAL SALINE 250ML 250 ML IV SCH (08:47)
[2019-12-14] MEDS: CHLORHEXIDINE 0.12% 15 ML MOUTHWASH. MM SCH ×2 (08:48→20:48)
[2019-12-14] MEDS: HYDROXYCHLOROQUINE 200 MG TABLET PO SCH ×2 (08:49→20:48)
[2019-12-14] MEDS: LACTOBACILLUS RHAMNOSUS GG 1 CAPSULE. PO SCH ×2 (08:49→20:48)
[2019-12-14] MEDS: CARBIDOPA/LEVODOPA 25/100MG TABLET PO SCH ×3 (08:49→20:49)
[2019-12-14] MEDS: ACETAMINOPHEN 650 MG SUPP.RECT. PR PRN ×2 (08:49→19:07)
[2019-12-14] MEDS: CETIRIZINE HCL 10 MG TABLET. PO SCH (08:49)
[2019-12-14] MEDS: TAMSULOSIN 0.4 MG CAP.ER.24H. PO SCH (09:00)
[2019-12-14] MEDS: ASPIRIN ENTERIC COATED 81 MG TABLET.DR. PO SCH (09:00)
[2019-12-14] MEDS: FLUTICASONE 50MCG/NASAL SPRAY 16GM BOTTLE. NS SCH (09:00)
[2019-12-14] MEDS: amLODIPine BESYLATE 5 MG TABLET PO SCH (09:00)
[2019-12-14] MEDS: hydroCHLOROthiazide 25 MG TABLET PO SCH (09:00)
[2019-12-14] MEDS: LISINOPRIL 10 MG TABLET PO SCH (09:00)
[2019-12-14] MEDS: ALLOPURINOL 100 MG TABLET. PO SCH (09:00)
[2019-12-14 09:37] LABS: BASE EXCESS ABG -6 mmol/L (-3-3); HCO3 ABG 18 mmol/L (21-28); PCO2 ABG 28 mmHg (35-46); PO2 ABG 64 mmHg (65-108); SAT O2 ABG 92 % (92-99)
[2019-12-14 10:08] LABS: FIO2 ABG 75% VENT
[2019-12-14] MEDS: ENOXAPARIN 30 MG/0.3 ML SYRINGE. SQ SCH (11:29)
--- NOTE | 2019-12-14 12:41 | PDOC ---
SUBJECTIVE ROS Intubated OBJECTIVE Vital Signs Vital Signs Date Time Temp Pulse Resp B/P (MAP) Pulse Ox O2 Delivery O2 Flow Rate FiO2 12/14/19 12:00 100.4 58 27 106/50 (68) 97 Ventilator 100.4 12/13/19 13:10 2.0 I & 0 Intake and Output 12/14/19 07:00 Intake Total 3647 ml Output Total 1725 ml Balance 1922 ml IV Total 3567 ml Tube Feeding 80 ml Output Urine Total 1675 ml Gastric Drainage Total 50 ml PHYSICAL EXAM Physical Exam GENERAL: intubated HEENT: Intubated NECK: Supple, LUNGS: Clear to auscultation, decreased at bases, Non labored HEART: RRR, S1, S2 present. ABDOMEN: Soft, nontender. EXTREMITIES: Without any cyanosis, clubbing, or edema. 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 Dinh's care, he didint keep fu appt earlier this year , Last seen by Dr Dinh in Apr 2019 Abnormal chest [id number] SARS-CoV-2 per Pulm Pending results Mildly elevated CK-monitor, Statin dced HypoNatremia- resolved Renal Cyst- Ct abdomen 2019- 1.8 cm mass at the left renal upper pole may represent a proteinaceous/hemorrhagic cyst but is indeterminate without contrast. Renal ultrasound done in 2019 - focus of different echogenicity of the superior left kidney apparently corresponding with the CT findings Somewhat complicated cyst is favored. COMMENT/RELEVANT DATA Meds Current Medications Medications (Trade) Dose Ordered Sig/Aga Start Time Stop Time Status Last Admin Dose Admin Acetaminophen (Tylenol Supp) 650 mg PRN Q6HRS PRN 12/12/19 07:45 12/14/19 08:49 650 MG Acetaminophen (Tylenol) 1,000 mg PRN Q6HRS PRN 12/09/19 15:30 12/09/19 18:00 DC Allopurinol (Zyloprim) 100 mg DAILY 12/10/19 17:00 12/12/19 12:03 100 MG Amino Acids/ Glycerin/ Electrolytes 1,000 ml @ 50 mls/hr Q20H 12/12/19 10:15 12/14/19 05:57 50 MLS/HR Amlodipine Besylate (Norvasc) 5 mg DAILY 12/10/19 17:00 12/12/19 12:05 5 MG Artificial Tears (Artificial Tears) 1 drop [id number] 12/10/19 17:00 12/10/19 16:44 DC Aspirin (Ecotrin) 81 mg DAILY 12/10/19 17:00 12/13/19 12:42 81 MG Azithromycin 250 ml @ 250 mls/hr 1X ONCE 12/10/19 16:30 12/10/19 17:29 UNV Azithromycin 500 mg/Sodium Chloride 250 ml @ 250 mls/hr Q24H 12/10/19 18:00 12/13/19 11:18 DC 12/12/19 17:21 250 MLS/HR Carbidopa/Levodopa (Sinemet 25/100) 2 tab TID 12/10/19 17:00 12/14/19 08:49 2 TAB Ceftriaxone Sodium (Rocephin) 1 gm Q24H 12/10/19 18:00 12/13/19 09:07 DC 12/12/19 17:24 1 GM Cetirizine HCl (ZyrTEC) 10 mg DAILY 12/10/19 17:00 12/14/19 08:49 10 MG Chlorhexidine Gluconate (Peridex) 15 ml BID 12/13/19 21:00 12/14/19 08:48 15 ML Dextrose (Dextrose 50%-Water Syringe) 12.5 gm PRN Q15MIN PRN 12/10/19 00:30 12/12/19 21:21 12.5 GM Enoxaparin Sodium (Lovenox 30mg Syringe) 30 mg Q24H 12/12/19 12:00 12/14/19 11:29 30 MG Fentanyl Citrate 30 ml @ 2.5 mls/hr CONT PRN 12/13/19 10:15 Ferrous Sulfate (Feosol) 325 mg DAILY08 12/10/19 17:00 12/12/19 12:04 325 MG Fluticasone Propionate (Flonase) 2 spray DAILY 12/11/19 09:00 12/14/19 09:00 2 SPRAY Glipizide (Glucotrol) 5 mg DAILYWSUP 12/10/19 17:00 12/11/19 08:03 DC 12/10/19 17:18 5 MG Hydrochlorothiazide (Hydrodiuril) 25 mg DAILY 12/10/19 17:00 12/12/19 12:03 25 MG Hydroxychloroquine Sulfate (Plaquenil) 200 mg BID 12/15/19 09:00 12/17/19 21:01 Lactobacillus Rhamnosus (Culturelle) 1 cap BID 12/11/19 21:00 12/14/19 08:49 1 CAP Levothyroxine Sodium (Synthroid) 50 mcg DAILY06 12/11/19 06:00 12/14/19 05:57 50 MCG Lisinopril (Prinivil) 10 mg DAILY 12/10/19 17:00 12/11/19 09:21 10 MG Morphine Sulfate (Morphine Sulfate) 4 mg PRN Q1HR PRN 12/13/19 10:15 12/13/19 12:40 4 MG Non-Formulary Medication (Carboxymethylcellulose Sodium (Lubricant Eye Drops)) 1 each HS 12/10/19 21:00 UNV Norepinephrine Bitartrate 8 mg/ Dextrose 258 ml @ 13.545 mls/ hr CONT PRN 12/13/19 15:30 12/13/19 16:03 6.773 MLS/HR Pantoprazole Sodium (Protonix) 40 mg DAILYAC 12/10/19 16:30 12/11/19 09:21 40 MG Piperacillin Sod/ Tazobactam Sod 3.375 gm/Sodium Chloride 50 ml @ 100 mls/hr Q6HRS 12/13/19 10:00 12/14/19 11:29 100 MLS/HR Piperacillin Sod/ Tazobactam Sod 4.5 gm/Sodium Chloride 100 ml @ 200 mls/hr Q6HRS 12/13/19 12:00 UNV Propofol 100 ml @ As Directed STK-MED ONCE 12/13/19 09:33 12/13/19 14:12 DC Simvastatin (Zocor) 20 mg QHS 12/10/19 21:00 12/13/19 11:28 DC 12/11/19 21:31 20 MG Sodium Polystyrene Sulfonate (Kayexalate) 15 gm 1X ONCE 12/09/19 13:45 12/09/19 13:46 DC 12/09/19 14:35 15 GM Sodium Chloride 1,000 ml @ 75 mls/hr [id number] 12/12/19 11:00 12/14/19 03:00 75 MLS/HR Tamsulosin HCl (Flomax) 0.4 mg DAILY 12/10/19 17:00 12/12/19 12:05 0.4 MG Vancomycin HCl (Vanco Per Pharmacy) 1 each PRN DAILY PRN 12/13/19 09:00 12/14/19 09:00 1 EACH Vancomycin HCl (Vancomycin Random Level) 1 each 1X ONCE 12/14/19 05:00 12/14/19 05:01 DC 12/14/19 04:52 1 EACH Vancomycin HCl (Vancomycin Trough Level) 1 each 1X ONCE 12/16/19 08:30 12/16/19 08:31 Vancomycin HCl 1.5 gm/Sodium Chloride 500 ml @ 250 mls/hr 1X ONCE 12/13/19 10:00 12/13/19 11:59 DC 12/13/19 11:11 250 MLS/HR Vancomycin HCl 1 gm/Sodium Chloride 250 ml @ 250 mls/hr Q48H 12/14/19 09:00 12/14/19 08:47 250 MLS/HR Warfarin Sodium (Coumadin Per Physician) 1 each PRN DAILY PRN 12/10/19 16:30 12/10/19 16:44 DC Warfarin Sodium (Coumadin) 3 mg 1X 12/10/19 16:00 12/10/19 16:44 DC Lab Laboratory Tests Test 12/13/19 18:16 12/14/19 04:00 12/14/19 08:00 12/14/19 11:35 Glucose (Fingerstick) 167 mg/dL (70-99) 167 mg/dL (70-99) White Blood Count 7.2 x10^3/uL (4.0-11.0) Red Blood Count 3.67 x10^6/uL (4.30-5.70) Hemoglobin 10.7 g/dL (13.0-17.5) Hematocrit 33.3 % (39.0-53.0) Mean Corpuscular Volume 91 fL (79-100) Mean Corpuscular Hemoglobin 29 pg (25-35) Mean Corpuscular Hemoglobin Concent 32 g/dL (31-37) Red Cell Distribution Width 16.5 % (11.5-14.5) Platelet Count 102 x10^3/uL (140-400) Neutrophils (%) (Auto) 82 % (31-73) Lymphocytes (%) (Auto) 10 % (24-48) Monocytes (%) (Auto) 7 % (0-9) Eosinophils (%) (Auto) 1 % (0-3) Basophils (%) (Auto) 0 % (0-3) Neutrophils # (Auto) 6.0 x10^3/uL (1.8-7.7) Lymphocytes # (Auto) 0.7 x10^3/uL (1.0-4.8) Monocytes # (Auto) 0.5 x10^3/uL (0.0-1.1) Eosinophils # (Auto) 0.1 x10^3/uL (0.0-0.7) Basophils # (Auto) 0.0 x10^3/uL (0.0-0.2) Sodium Level 138 mmol/L (136-145) Potassium Level 5.2 mmol/L (3.5-5.1) Chloride Level 109 mmol/L (98-107) Carbon Dioxide Level 18 mmol/L (21-32) Anion Gap 11 (6-14) Blood Urea Nitrogen 41 mg/dL (8-26) Creatinine 2.0 mg/dL (0.7-1.3) Estimated GFR (Cockcroft-Gault) 38.5 Glucose Level 156 mg/dL (70-99) Calcium Level 7.8 mg/dL (8.5-10.1) Phosphorus Level 2.7 mg/dL (2.6-4.7) Albumin 1.9 g/dL (3.4-5.0) Random Vancomycin Level 13.0 mcg/mL O2 Saturation 92 % (92-99) Arterial Blood pH 7.42 (7.35-7.45) Arterial Blood pCO2 at Patient Temp 28 mmHg (35-46) Arterial Blood pO2 at Patient Temp 64 mmHg (65-108) Arterial Blood HCO3 18 mmol/L (21-28) Arterial Blood Base Excess -6 mmol/L (-3-3) FiO2 75% vent Results All relevant outside records, renal labs, imaging studies, telemetry/EKG's were reviewed. WILLA ANDREA MD Dec 14, 2019 12:41
[2019-12-14] MEDS ORDERED: VECURONIUM BOLUS 10 MG VIAL. IV ONE ×2 (12:43→12:45)
[2019-12-14] MEDS: PROPOFOL 100 ML IV PRN (13:39)
--- NOTE | 2019-12-14 13:45 | PDOC ---
PULMONARY PROGRESS NOTES Subjective Patient currently intubated, 75% FiO2 5 of PEEP, peak airway pressures high at 74 Currently on norepinephrine IV fluids broad-spectrum antibiotics Vitals Vital Signs Date Time Temp Pulse Resp B/P (MAP) Pulse Ox O2 Delivery O2 Flow Rate FiO2 12/14/19 13:10 Ventilator 12/14/19 13:00 63 19 101/49 (66) 100 12/14/19 12:00 100.4 100.4 12/13/19 13:10 2.0 Comments intubated. Lungs: Wheezing, Crackles, Other (equal breath sounds. no wheezing) Cardiovascular: S1, S2 Abdomen: Soft Extremities: No Edema Skin: Warm Labs Laboratory Tests Test 12/12/19 16:47 12/12/19 20:59 12/12/19 21:13 12/13/19 01:04 Glucose (Fingerstick) 107 mg/dL (70-99) 63 mg/dL (70-99) 154 mg/dL (70-99) O2 Saturation 87 % (92-99) Arterial Blood pH 7.44 (7.35-7.45) Arterial Blood pH (Temp corrected) 7.41 Arterial Blood pCO2 at Patient Temp 27 mmHg (35-46) Arterial Blood pCO2 (Temp correct) 30 mmHg Arterial Blood pO2 at Patient Temp 53 mmHg (65-108) Arterial Blood pO2 (Temp corrected) 61 mmHg Arterial Blood HCO3 18 mmol/L (21-28) Arterial Blood Base Excess -5 mmol/L (-3-3) FiO2 55 Test 12/13/19 02:24 12/13/19 05:00 12/13/19 12:16 12/13/19 18:16 Glucose (Fingerstick) 105 mg/dL (70-99) 167 mg/dL (70-99) White Blood Count 5.9 x10^3/uL (4.0-11.0) Red Blood Count 4.19 x10^6/uL (4.30-5.70) Hemoglobin 12.2 g/dL (13.0-17.5) Hematocrit 37.9 % (39.0-53.0) Mean Corpuscular Volume 90 fL (79-100) Mean Corpuscular Hemoglobin 29 pg (25-35) Mean Corpuscular Hemoglobin Concent 32 g/dL (31-37) Red Cell Distribution Width 16.3 % (11.5-14.5) Platelet Count 109 x10^3/uL (140-400) Neutrophils (%) (Auto) 80 % (31-73) Lymphocytes (%) (Auto) 11 % (24-48) Monocytes (%) (Auto) 9 % (0-9) Eosinophils (%) (Auto) 0 % (0-3) Basophils (%) (Auto) 0 % (0-3) Neutrophils # (Auto) 4.7 x10^3/uL (1.8-7.7) Lymphocytes # (Auto) 0.7 x10^3/uL (1.0-4.8) Monocytes # (Auto) 0.5 x10^3/uL (0.0-1.1) Eosinophils # (Auto) 0.0 x10^3/uL (0.0-0.7) Basophils # (Auto) 0.0 x10^3/uL (0.0-0.2) Sodium Level 138 mmol/L (136-145) Potassium Level 5.3 mmol/L (3.5-5.1) Chloride Level 105 mmol/L (98-107) Carbon Dioxide Level 19 mmol/L (21-32) Anion Gap 14 (6-14) Blood Urea Nitrogen 37 mg/dL (8-26) Creatinine 2.4 mg/dL (0.7-1.3) Estimated GFR (Cockcroft-Gault) 31.2 BUN/Creatinine Ratio 15 (6-20) Glucose Level 84 mg/dL (70-99) Calcium Level 8.0 mg/dL (8.5-10.1) Total Bilirubin 0.4 mg/dL (0.2-1.0) Direct Bilirubin < 0.1 mg/dL (0.0-0.2) Aspartate Amino Transf (AST/SGOT) 134 U/L (15-37) Alanine Aminotransferase (ALT/SGPT) 35 U/L (16-63) Alkaline Phosphatase 50 U/L (46-116) Total Protein 6.6 g/dL (6.4-8.2) Albumin 2.4 g/dL (3.4-5.0) Albumin/Globulin Ratio 0.6 (1.0-1.7) O2 Saturation 98 % (92-99) Arterial Blood pH 7.38 (7.35-7.45) Arterial Blood pCO2 at Patient Temp 28 mmHg (35-46) Arterial Blood pO2 at Patient Temp 142 mmHg (65-108) Arterial Blood HCO3 17 mmol/L (21-28) Arterial Blood Base Excess -7 mmol/L (-3-3) FiO2 100% Test 12/14/19 04:00 12/14/19 08:00 12/14/19 11:35 White Blood Count 7.2 x10^3/uL (4.0-11.0) Red Blood Count 3.67 x10^6/uL (4.30-5.70) Hemoglobin 10.7 g/dL (13.0-17.5) Hematocrit 33.3 % (39.0-53.0) Mean Corpuscular Volume 91 fL (79-100) Mean Corpuscular Hemoglobin 29 pg (25-35) Mean Corpuscular Hemoglobin Concent 32 g/dL (31-37) Red Cell Distribution Width 16.5 % (11.5-14.5) Platelet Count 102 x10^3/uL (140-400) Neutrophils (%) (Auto) 82 % (31-73) Lymphocytes (%) (Auto) 10 % (24-48) Monocytes (%) (Auto) 7 % (0-9) Eosinophils (%) (Auto) 1 % (0-3) Basophils (%) (Auto) 0 % (0-3) Neutrophils # (Auto) 6.0 x10^3/uL (1.8-7.7) Lymphocytes # (Auto) 0.7 x10^3/uL (1.0-4.8) Monocytes # (Auto) 0.5 x10^3/uL (0.0-1.1) Eosinophils # (Auto) 0.1 x10^3/uL (0.0-0.7) Basophils # (Auto) 0.0 x10^3/uL (0.0-0.2) Sodium Level 138 mmol/L (136-145) Potassium Level 5.2 mmol/L (3.5-5.1) Chloride Level 109 mmol/L (98-107) Carbon Dioxide Level 18 mmol/L (21-32) Anion Gap 11 (6-14) Blood Urea Nitrogen 41 mg/dL (8-26) Creatinine 2.0 mg/dL (0.7-1.3) Estimated GFR (Cockcroft-Gault) 38.5 Glucose Level 156 mg/dL (70-99) Calcium Level 7.8 mg/dL (8.5-10.1) Phosphorus Level 2.7 mg/dL (2.6-4.7) Albumin 1.9 g/dL (3.4-5.0) Random Vancomycin Level 13.0 mcg/mL O2 Saturation 92 % (92-99) Arterial Blood pH 7.42 (7.35-7.45) Arterial Blood pCO2 at Patient Temp 28 mmHg (35-46) Arterial Blood pO2 at Patient Temp 64 mmHg (65-108) Arterial Blood HCO3 18 mmol/L (21-28) Arterial Blood Base Excess -6 mmol/L (-3-3) FiO2 75% vent Glucose (Fingerstick) 167 mg/dL (70-99) Laboratory Tests Test 12/13/19 18:16 12/14/19 04:00 12/14/19 08:00 12/14/19 11:35 Glucose (Fingerstick) 167 mg/dL (70-99) 167 mg/dL (70-99) White Blood Count 7.2 x10^3/uL (4.0-11.0) Red Blood Count 3.67 x10^6/uL (4.30-5.70) Hemoglobin 10.7 g/dL (13.0-17.5) Hematocrit 33.3 % (39.0-53.0) Mean Corpuscular Volume 91 fL (79-100) Mean Corpuscular Hemoglobin 29 pg (25-35) Mean Corpuscular Hemoglobin Concent 32 g/dL (31-37) Red Cell Distribution Width 16.5 % (11.5-14.5) Platelet Count 102 x10^3/uL (140-400) Neutrophils (%) (Auto) 82 % (31-73) Lymphocytes (%) (Auto) 10 % (24-48) Monocytes (%) (Auto) 7 % (0-9) Eosinophils (%) (Auto) 1 % (0-3) Basophils (%) (Auto) 0 % (0-3) Neutrophils # (Auto) 6.0 x10^3/uL (1.8-7.7) Lymphocytes # (Auto) 0.7 x10^3/uL (1.0-4.8) Monocytes # (Auto) 0.5 x10^3/uL (0.0-1.1) Eosinophils # (Auto) 0.1 x10^3/uL (0.0-0.7) Basophils # (Auto) 0.0 x10^3/uL (0.0-0.2) Sodium Level 138 mmol/L (136-145) Potassium Level 5.2 mmol/L (3.5-5.1) Chloride Level 109 mmol/L (98-107) Carbon Dioxide Level 18 mmol/L (21-32) Anion Gap 11 (6-14) Blood Urea Nitrogen 41 mg/dL (8-26) Creatinine 2.0 mg/dL (0.7-1.3) Estimated GFR (Cockcroft-Gault) 38.5 Glucose Level 156 mg/dL (70-99) Calcium Level 7.8 mg/dL (8.5-10.1) Phosphorus Level 2.7 mg/dL (2.6-4.7) Albumin 1.9 g/dL (3.4-5.0) Random Vancomycin Level 13.0 mcg/mL O2 Saturation 92 % (92-99) Arterial Blood pH 7.42 (7.35-7.45) Arterial Blood pCO2 at Patient Temp 28 mmHg (35-46) Arterial Blood pO2 at Patient Temp 64 mmHg (65-108) Arterial Blood HCO3 18 mmol/L (21-28) Arterial Blood Base Excess -6 mmol/L (-3-3) FiO2 75% vent Medications Active Scripts Medications Dose Route/Sig Max Daily Dose Days Date Category Dose Instructions Warfarin Sodium 3 Mg Tablet 1 Tab PO 1X 09/28/17 Reported Fluticasone Propionate Nasal [place] (Fluticasone Propionate) 16 Gm [place].susp 2 [place] NS DAILY 09/25/17 Reported last dos this am next dose tomorrow am (monday) Lubricant Eye Drops (Propylene Glycol) 10 Ml Drops 10 Ml OP [id number] 09/25/17 Reported last dose after lunch next dose with supper/ bedtime Lubricant Eye Drops (Carboxymethylcellulose Sodium) 1 Each Droperette 1 Each OP HS 09/25/17 Reported last dose last evening next dosetonight provided his own Glipizide 5 Mg Tablet 5 Mg PO DAILYWSUP 07/12/16 Reported last dose last night next dose tonight with supper Glipizide 5 Mg Tablet 2.5 Mg PO DAILY 07/12/16 Reported last dose this am (next dose tomorrow am monday) Loratadine 10 Mg Tablet 10 Mg PO 06/27/16 Reported last dose this am next dose tomorrow am(monday) Omeprazole 20 Mg Capsule. 20 Mg PO DAILY 06/27/16 Reported last dose this am next dose tomorrow am (monday) Ferrous Sulfate 325 Mg Tablet 1 Tab PO DAILY 06/27/16 Reported last dose this am next dose tonight Aspir 81 (Aspirin) 81 Mg Tablet. 81 Mg PO DAILY 06/27/16 Reported Amlodipine-Benazepril 5-10 Mg (Amlodipine Besylate/Benazepril) 1 Each Capsule 1 Cap PO DAILY 06/27/16 Reported last dos this am next dose tomorrow am (monday) Tamsulosin Hcl 0.4 Mg Cap.er.24h 1 Cap PO DAILY 10/06/14 Reported last dose this am next dose tomorrow am (monday) Simvastatin 20 Mg Tablet 1 Tab PO QHS 10/06/14 Reported last dose last evening next dose tonight Hydrochlorothiazide Tablet (Hydrochlorothiazide) 25 Mg Tablet 1 Tab PO DAILY 10/06/14 Reported last dos this am next dose tomorrow am (monday) Allopurinol 100 Mg Tablet 1 Tab PO DAILY 10/06/14 Reported last dose this am next dose tomorrow on monday Levothyroxine Sodium 50 Mcg Tablet 1 Tab PO DAILY 10/06/14 Reported last dose this am next dose tomorrow am (monday) Impression . 1. Acute respiratory failure secondary to neumonia 2. Pneumonia, Covid suspect. 3. diabetes 4. Abnormal chest x-ray, suspect pneumonia gram-negative gram-positive, possibly viral This is an 84-year-old, who presents with comorbidities including debility, diabetes, and chronic kidney disease on top of acute kidney disease with abnormal chest x-ray. suspected SARS-CoV-2. Plan . Patient doing poorly on assist control volume driven ventilation, will switch over to pressure control Needs to be heavily sedated Empiric hydro-hydroxychloroquine, call with 19 testing pending Continue vancomycin and Zosyn We will consider Tocilizumab if he continues to worsen DVT GI prophylaxis Nutritional support with tube feeding The above was discussed with RN and RT, currently place patient on pressure of 35, rate of 20, 75% FiO2 eta pleat Total cumulative critical care time of 40 minutes reviewing data, labs, chest x- ray, and managing vent VISHNU CRUZ MD Dec 14, 2019 13:45
--- NOTE | 2019-12-14 13:53 | PDOC ---
[facility] PROGRESS NOTE Chief Complaint Chief Complaint Pneumonia Chronic renal failure Debility Weakness Fevers Arthritis, diabetes, back surgery, knee surgery and thyroid surgery. History of Present Illness History of Present Illness [id number] Patient seen and examined in the ICU He is mechanically ventilated then we just switched him over to pressure control 75% FiO2 [employer] Worker ordered paralytics as the patient has not interfacing with the vent well Chart reviewed Discussed with RN He is critically ill [id number] Patient seen and examined now transferred to the ICU In respiratory isolation and intubated On 100% oxygen assist-control He is extremely critically ill Chart reviewed Discussed with RN [id number] Patient seen and examined He is still confused and weak Discussed with RN Patient coughed a little bit with some water We are going to get speech therapy eval Also starting some IV PPN Continue in physical therapy occupational therapy and current medications [id number] Patient seen and examined Chart reviewed Discussed with RN He looks a little better today but very weak Suspect he is going to need custodial? [id number] Patient seen and examined Chart reviewed discussed with RN Spoke with his daughter Nayeli Vitals/I&O Vitals/I&O: Vital Signs Date Time Temp Pulse Resp B/P (MAP) Pulse Ox O2 Delivery O2 Flow Rate FiO2 12/14/19 13:10 Ventilator 12/14/19 13:00 63 19 101/49 (66) 100 12/14/19 12:00 100.4 100.4 12/13/19 13:10 2.0 I & O 12/13/19 12/13/19 12/14/19 15:00 23:00 07:00 Intake Total 550 ml 1608 ml 1489 ml Output Total 350 ml 800 ml 575 ml Balance 200 ml 808 ml 914 ml Physical Exam General: Other (bucking the vent, we just ordered some paralytics) Heart: No murmurs, Other (tachycardic at 102 bpm distant S1-S2) Lungs: Wheezing, Crackles, Other (equal breath sounds. no wheezing) Abdomen: Soft Extremities: No clubbing, No cyanosis Skin: No rashes, No breakdown Labs Labs: Laboratory Tests Test 12/13/19 18:16 12/14/19 04:00 12/14/19 08:00 12/14/19 11:35 Glucose (Fingerstick) 167 mg/dL (70-99) 167 mg/dL (70-99) White Blood Count 7.2 x10^3/uL (4.0-11.0) Red Blood Count 3.67 x10^6/uL (4.30-5.70) Hemoglobin 10.7 g/dL (13.0-17.5) Hematocrit 33.3 % (39.0-53.0) Mean Corpuscular Volume 91 fL (79-100) Mean Corpuscular Hemoglobin 29 pg (25-35) Mean Corpuscular Hemoglobin Concent 32 g/dL (31-37) Red Cell Distribution Width 16.5 % (11.5-14.5) Platelet Count 102 x10^3/uL (140-400) Neutrophils (%) (Auto) 82 % (31-73) Lymphocytes (%) (Auto) 10 % (24-48) Monocytes (%) (Auto) 7 % (0-9) Eosinophils (%) (Auto) 1 % (0-3) Basophils (%) (Auto) 0 % (0-3) Neutrophils # (Auto) 6.0 x10^3/uL (1.8-7.7) Lymphocytes # (Auto) 0.7 x10^3/uL (1.0-4.8) Monocytes # (Auto) 0.5 x10^3/uL (0.0-1.1) Eosinophils # (Auto) 0.1 x10^3/uL (0.0-0.7) Basophils # (Auto) 0.0 x10^3/uL (0.0-0.2) Sodium Level 138 mmol/L (136-145) Potassium Level 5.2 mmol/L (3.5-5.1) Chloride Level 109 mmol/L (98-107) Carbon Dioxide Level 18 mmol/L (21-32) Anion Gap 11 (6-14) Blood Urea Nitrogen 41 mg/dL (8-26) Creatinine 2.0 mg/dL (0.7-1.3) Estimated GFR (Cockcroft-Gault) 38.5 Glucose Level 156 mg/dL (70-99) Calcium Level 7.8 mg/dL (8.5-10.1) Phosphorus Level 2.7 mg/dL (2.6-4.7) Albumin 1.9 g/dL (3.4-5.0) Random Vancomycin Level 13.0 mcg/mL O2 Saturation 92 % (92-99) Arterial Blood pH 7.42 (7.35-7.45) Arterial Blood pCO2 at Patient Temp 28 mmHg (35-46) Arterial Blood pO2 at Patient Temp 64 mmHg (65-108) Arterial Blood HCO3 18 mmol/L (21-28) Arterial Blood Base Excess -6 mmol/L (-3-3) FiO2 75% vent Assessment and Plan Assessmemt and Plan Problems Medical Problems: (1) Bilateral pneumonia Status: Acute (2) Fever Status: Acute (3) Hypoglycemia Status: Acute (4) Renal insufficiency Status: Acute (5) Suspected 2019 novel coronavirus infection Status: Acute (6) Weakness Status: Acute Fulminant respiratory failure requiring mechanical ventilation Pneumonia Possible Covid 19? Chronic renal failure Debility Weakness Fevers Arthritis, diabetes, back surgery, knee surgery and thyroid surgery. Plan ICU monitoring Mechanical ventilation (poor knowledge is just changed him to pressure control and added in paralytics, agree) Await further input from pulmonary and nephrology Beta agonist Trend labs Home meds DVT prophylaxis Full code Await Covid 19 testing results He is extremely critically ill Total time 31 minutes Comment Review of Relevant I have reviewed the following items sammie (where applicable) has been applied. Medications: Current Medications Medications (Trade) Dose Ordered Sig/Aga Route PRN Reason Start Time Stop Time Status Last Admin Dose Admin Chlorhexidine Gluconate (Peridex) 15 ml BID MM 12/13/19 21:00 12/14/19 08:48 Norepinephrine Bitartrate 8 mg/ Dextrose 258 ml @ 13.545 mls/ hr CONT PRN IV PER PROTOCOL 12/13/19 15:30 12/13/19 16:03 Vancomycin HCl (Vancomycin Random Level) 1 each 1X ONCE MC 12/14/19 05:00 12/14/19 05:01 DC 12/14/19 04:52 Vancomycin HCl 1 gm/Sodium Chloride 250 ml @ 250 mls/hr Q48H IV 12/14/19 09:00 12/14/19 08:47 Vecuronium [place] (Norcuron Bolus) 6 mg 1X ONCE IV 12/14/19 12:45 12/14/19 12:52 DC 12/14/19 12:55 EDIE CRISTOBAL III DO Dec 14, 2019 13:53
[2019-12-14 19:01] LABS: D-DIMER 3.13 ug/mlFEU (0.00-0.50)
[2019-12-14] MEDS: NOREPINEPHRINE VIAL 8 MG in IV DEXTROSE 5% 250 ML IV PRN ×2 (19:07→21:08)
[2019-12-15] VITALS (24 sets, daily range): BP systolic 102–135; BP diastolic 39–92
[2019-12-15] MEDS: PROPOFOL 100 ML IV PRN ×2 (00:24→23:23)
[2019-12-15] MEDS: PIPERACILLIN/TAZOBACTAM 3.375 GM in IV NORMAL SALINE 50ML 50 ML IV SCH ×5 (00:24→23:23)
[2019-12-15] MEDS: AMINO AC 3%/ELECTROLYTE/GLYCER 1,000 ML IV SCH ×2 (00:25→21:47)
[2019-12-15 05:18] LABS: BASO % 0 % (0-3); EOS # 0.1 x10^3/uL (0.0-0.7); EOS % 1 % (0-3); HEMATOCRIT 29.7 % (39.0-53.0); HEMOGLOBIN 9.9 g/dL (13.0-17.5); LYMPH # 0.7 x10^3/uL (1.0-4.8); LYMPH % 9 % (24-48); MEAN CORPUSCULAR HEMOGLOBIN 30 pg (25-35); MEAN CORPUSCULAR HGB CONC 33 g/dL (31-37); MEAN CORPUSCULAR VOLUME 89 fL (79-100); MONO # 0.6 x10^3/uL (0.0-1.1); MONO % 8 % (0-9); NEUT # 6.3 x10^3/uL (1.8-7.7); NEUT % 82 % (31-73); PLATELET COUNT 114 x10^3/uL (140-400); RED BLOOD COUNT 3.33 x10^6/uL (4.30-5.70); WHITE BLOOD COUNT 7.6 x10^3/uL (4.0-11.0)
[2019-12-15] MEDS: LEVOTHYROXINE 50 MCG TABLET PO SCH (05:33)
[2019-12-15 05:35] LABS: ALBUMIN 1.7 g/dL (3.4-5.0); CREATININE 2.3 mg/dL (0.7-1.3); GFR 32.8; PHOSPHORUS 2.9 mg/dL (2.6-4.7); POTASSIUM 5.1 mmol/L (3.5-5.1)
[2019-12-15] MEDS: PANTOPRAZOLE 40 MG TABLET.DR. PO SCH (07:30)
[2019-12-15] MEDS: glipiZIDE 5 MG TABLET PO SCH (07:30)
[2019-12-15] MEDS: FERROUS SULFATE 325 MG TABLET. PO SCH (08:00)
[2019-12-15] MEDS: VANCOMYCIN PER PHARMACY MC PRN (08:30)
[2019-12-15] MEDS: LISINOPRIL 10 MG TABLET PO SCH (09:00)
[2019-12-15] MEDS: ASPIRIN ENTERIC COATED 81 MG TABLET.DR. PO SCH (09:00)
[2019-12-15] MEDS: TAMSULOSIN 0.4 MG CAP.ER.24H. PO SCH (09:00)
[2019-12-15] MEDS: hydroCHLOROthiazide 25 MG TABLET PO SCH (09:00)
[2019-12-15] MEDS: ALLOPURINOL 100 MG TABLET. PO SCH (09:00)
[2019-12-15] MEDS: amLODIPine BESYLATE 5 MG TABLET PO SCH (09:00)
[2019-12-15] MEDS: HYDROXYCHLOROQUINE 200 MG TABLET PO SCH ×2 (09:12→21:48)
[2019-12-15] MEDS: CARBIDOPA/LEVODOPA 25/100MG TABLET PO SCH ×3 (09:12→21:47)
[2019-12-15] MEDS: CETIRIZINE HCL 10 MG TABLET. PO SCH (09:12)
[2019-12-15] MEDS: CHLORHEXIDINE 0.12% 15 ML MOUTHWASH. MM SCH ×2 (09:12→21:47)
[2019-12-15] MEDS: FLUTICASONE 50MCG/NASAL SPRAY 16GM BOTTLE. NS SCH (09:14)
--- NOTE | 2019-12-15 09:21 | PDOC ---
PULMONARY PROGRESS NOTES Subjective Patient on pressure control ventilation, compliance seems to have improved tidal volumes are high this morning on current pressure setting Requiring norepinephrine at 7.9 mics Currently on norepinephrine IV fluids broad-spectrum antibiotics Vitals Vital Signs Date Time Temp Pulse Resp B/P (MAP) Pulse Ox O2 Delivery O2 Flow Rate FiO2 12/15/19 08:18 19 99 Ventilator 12/15/19 08:00 98.9 50 129/54 (79) 98.9 12/15/19 08:00 2.0 Comments intubated. Lungs: Crackles, Other (equal breath sounds. no wheezing) Cardiovascular: S1, S2 Abdomen: Soft Extremities: No Edema Skin: Warm Labs Laboratory Tests Test 12/13/19 12:16 12/13/19 18:16 12/14/19 04:00 12/14/19 08:00 O2 Saturation 98 % (92-99) 92 % (92-99) Arterial Blood pH 7.38 (7.35-7.45) 7.42 (7.35-7.45) Arterial Blood pCO2 at Patient Temp 28 mmHg (35-46) 28 mmHg (35-46) Arterial Blood pO2 at Patient Temp 142 mmHg (65-108) 64 mmHg (65-108) Arterial Blood HCO3 17 mmol/L (21-28) 18 mmol/L (21-28) Arterial Blood Base Excess -7 mmol/L (-3-3) -6 mmol/L (-3-3) FiO2 100% 75% vent Glucose (Fingerstick) 167 mg/dL (70-99) White Blood Count 7.2 x10^3/uL (4.0-11.0) Red Blood Count 3.67 x10^6/uL (4.30-5.70) Hemoglobin 10.7 g/dL (13.0-17.5) Hematocrit 33.3 % (39.0-53.0) Mean Corpuscular Volume 91 fL (79-100) Mean Corpuscular Hemoglobin 29 pg (25-35) Mean Corpuscular Hemoglobin Concent 32 g/dL (31-37) Red Cell Distribution Width 16.5 % (11.5-14.5) Platelet Count 102 x10^3/uL (140-400) Neutrophils (%) (Auto) 82 % (31-73) Lymphocytes (%) (Auto) 10 % (24-48) Monocytes (%) (Auto) 7 % (0-9) Eosinophils (%) (Auto) 1 % (0-3) Basophils (%) (Auto) 0 % (0-3) Neutrophils # (Auto) 6.0 x10^3/uL (1.8-7.7) Lymphocytes # (Auto) 0.7 x10^3/uL (1.0-4.8) Monocytes # (Auto) 0.5 x10^3/uL (0.0-1.1) Eosinophils # (Auto) 0.1 x10^3/uL (0.0-0.7) Basophils # (Auto) 0.0 x10^3/uL (0.0-0.2) Sodium Level 138 mmol/L (136-145) Potassium Level 5.2 mmol/L (3.5-5.1) Chloride Level 109 mmol/L (98-107) Carbon Dioxide Level 18 mmol/L (21-32) Anion Gap 11 (6-14) Blood Urea Nitrogen 41 mg/dL (8-26) Creatinine 2.0 mg/dL (0.7-1.3) Estimated GFR (Cockcroft-Gault) 38.5 Glucose Level 156 mg/dL (70-99) Calcium Level 7.8 mg/dL (8.5-10.1) Phosphorus Level 2.7 mg/dL (2.6-4.7) Albumin 1.9 g/dL (3.4-5.0) Random Vancomycin Level 13.0 mcg/mL Test 12/14/19 11:35 12/14/19 18:00 12/14/19 19:12 12/14/19 23:43 Glucose (Fingerstick) 167 mg/dL (70-99) 153 mg/dL (70-99) 171 mg/dL (70-99) Fibrinogen 608 mg/dL (200-440) D-Dimer (Tamar) 3.13 ug/mlFEU (0.00-0.50) Test 12/15/19 05:00 12/15/19 06:08 White Blood Count 7.6 x10^3/uL (4.0-11.0) Red Blood Count 3.33 x10^6/uL (4.30-5.70) Hemoglobin 9.9 g/dL (13.0-17.5) Hematocrit 29.7 % (39.0-53.0) Mean Corpuscular Volume 89 fL (79-100) Mean Corpuscular Hemoglobin 30 pg (25-35) Mean Corpuscular Hemoglobin Concent 33 g/dL (31-37) Red Cell Distribution Width 16.0 % (11.5-14.5) Platelet Count 114 x10^3/uL (140-400) Neutrophils (%) (Auto) 82 % (31-73) Lymphocytes (%) (Auto) 9 % (24-48) Monocytes (%) (Auto) 8 % (0-9) Eosinophils (%) (Auto) 1 % (0-3) Basophils (%) (Auto) 0 % (0-3) Neutrophils # (Auto) 6.3 x10^3/uL (1.8-7.7) Lymphocytes # (Auto) 0.7 x10^3/uL (1.0-4.8) Monocytes # (Auto) 0.6 x10^3/uL (0.0-1.1) Eosinophils # (Auto) 0.1 x10^3/uL (0.0-0.7) Basophils # (Auto) 0.0 x10^3/uL (0.0-0.2) Sodium Level 136 mmol/L (136-145) Potassium Level 5.1 mmol/L (3.5-5.1) Chloride Level 107 mmol/L (98-107) Carbon Dioxide Level 16 mmol/L (21-32) Anion Gap 13 (6-14) Blood Urea Nitrogen 48 mg/dL (8-26) Creatinine 2.3 mg/dL (0.7-1.3) Estimated GFR (Cockcroft-Gault) 32.8 Glucose Level 195 mg/dL (70-99) Calcium Level 8.0 mg/dL (8.5-10.1) Phosphorus Level 2.9 mg/dL (2.6-4.7) Albumin 1.7 g/dL (3.4-5.0) Glucose (Fingerstick) 178 mg/dL (70-99) Laboratory Tests Test 12/14/19 11:35 12/14/19 18:00 12/14/19 19:12 12/14/19 23:43 Glucose (Fingerstick) 167 mg/dL (70-99) 153 mg/dL (70-99) 171 mg/dL (70-99) Fibrinogen 608 mg/dL (200-440) D-Dimer (Tamar) 3.13 ug/mlFEU (0.00-0.50) Test 12/15/19 05:00 12/15/19 06:08 White Blood Count 7.6 x10^3/uL (4.0-11.0) Red Blood Count 3.33 x10^6/uL (4.30-5.70) Hemoglobin 9.9 g/dL (13.0-17.5) Hematocrit 29.7 % (39.0-53.0) Mean Corpuscular Volume 89 fL (79-100) Mean Corpuscular Hemoglobin 30 pg (25-35) Mean Corpuscular Hemoglobin Concent 33 g/dL (31-37) Red Cell Distribution Width 16.0 % (11.5-14.5) Platelet Count 114 x10^3/uL (140-400) Neutrophils (%) (Auto) 82 % (31-73) Lymphocytes (%) (Auto) 9 % (24-48) Monocytes (%) (Auto) 8 % (0-9) Eosinophils (%) (Auto) 1 % (0-3) Basophils (%) (Auto) 0 % (0-3) Neutrophils # (Auto) 6.3 x10^3/uL (1.8-7.7) Lymphocytes # (Auto) 0.7 x10^3/uL (1.0-4.8) Monocytes # (Auto) 0.6 x10^3/uL (0.0-1.1) Eosinophils # (Auto) 0.1 x10^3/uL (0.0-0.7) Basophils # (Auto) 0.0 x10^3/uL (0.0-0.2) Sodium Level 136 mmol/L (136-145) Potassium Level 5.1 mmol/L (3.5-5.1) Chloride Level 107 mmol/L (98-107) Carbon Dioxide Level 16 mmol/L (21-32) Anion Gap 13 (6-14) Blood Urea Nitrogen 48 mg/dL (8-26) Creatinine 2.3 mg/dL (0.7-1.3) Estimated GFR (Cockcroft-Gault) 32.8 Glucose Level 195 mg/dL (70-99) Calcium Level 8.0 mg/dL (8.5-10.1) Phosphorus Level 2.9 mg/dL (2.6-4.7) Albumin 1.7 g/dL (3.4-5.0) Glucose (Fingerstick) 178 mg/dL (70-99) Medications Active Scripts Medications Dose Route/Sig Max Daily Dose Days Date Category Dose Instructions Warfarin Sodium 3 Mg Tablet 1 Tab PO 1X 09/28/17 Reported Fluticasone Propionate Nasal [place] (Fluticasone Propionate) 16 Gm [place].susp 2 [place] NS DAILY 09/25/17 Reported last dos this am next dose tomorrow am (monday) Lubricant Eye Drops (Propylene Glycol) 10 Ml Drops 10 Ml OP [id number] 09/25/17 Reported last dose after lunch next dose with supper/ bedtime Lubricant Eye Drops (Carboxymethylcellulose Sodium) 1 Each Droperette 1 Each OP HS 09/25/17 Reported last dose last evening next dosetonight provided his own Glipizide 5 Mg Tablet 5 Mg PO DAILYWSUP 07/12/16 Reported last dose last night next dose tonight with supper Glipizide 5 Mg Tablet 2.5 Mg PO DAILY 07/12/16 Reported last dose this am (next dose tomorrow am monday) Loratadine 10 Mg Tablet 10 Mg PO 06/27/16 Reported last dose this am next dose tomorrow am(monday) Omeprazole 20 Mg Capsule.dr 20 Mg PO DAILY 06/27/16 Reported last dose this am next dose tomorrow am (monday) Ferrous Sulfate 325 Mg Tablet 1 Tab PO DAILY 06/27/16 Reported last dose this am next dose tonight Aspir 81 (Aspirin) 81 Mg Tablet.dr 81 Mg PO DAILY 06/27/16 Reported Amlodipine-Benazepril 5-10 Mg (Amlodipine Besylate/Benazepril) 1 Each Capsule 1 Cap PO DAILY 06/27/16 Reported last dos this am next dose tomorrow am (monday) Tamsulosin Hcl 0.4 Mg Cap.er.24h 1 Cap PO DAILY 10/06/14 Reported last dose this am next dose tomorrow am (monday) Simvastatin 20 Mg Tablet 1 Tab PO QHS 10/06/14 Reported last dose last evening next dose tonight Hydrochlorothiazide Tablet (Hydrochlorothiazide) 25 Mg Tablet 1 Tab PO DAILY 10/06/14 Reported last dos this am next dose tomorrow am (monday) Allopurinol 100 Mg Tablet 1 Tab PO DAILY 10/06/14 Reported last dose this am next dose tomorrow on monday Levothyroxine Sodium 50 Mcg Tablet 1 Tab PO DAILY 10/06/14 Reported last dose this am next dose tomorrow am (monday) Impression . 1. Acute respiratory failure secondary ARDS 2. Pneumonia, COVID-19 positive test (U07.1, COVID-19) with Acute Pneumonia (J12.89, Other viral pneumonia) (If respiratory failure or sepsis present, add as separate assessment) 3. diabetes 4. Abnormal chest x-ray, suspect pneumonia gram-negative gram-positive, possibly viral This is an 84-year-old, who presents with comorbidities including debility, diabetes, and chronic kidney disease on top of acute kidney disease with abnormal chest x-ray. 5. Septic shock 6. Protein malnutrition present upon admission 7. Acute kidney injury Plan . Lung compliance has improved, decrease pressure control to 10 maintain tidal volumes of 4 to 5 cc/kg Needs to be heavily sedated D-dimer and fibrinogen elevated will repeat testing, repeat EKG Empiric hydro-hydroxychloroquine, will add Zithromax Continue vancomycin and Zosyn We will consider Tocilizumab if he continues to worsen DVT GI prophylaxis Nutritional support with tube feeding The above was discussed with RN and RT, currently place patient on pressure of 35, rate of 20, 75% FiO2 eta pleat Total cumulative critical care time of 40 minutes reviewing data, labs, chest x- ray, and managing VISHNU Dominguez MD Dec 15, 2019 09:21
[2019-12-15 09:24] LABS: BASE EXCESS ABG -9 mmol/L (-3-3); HCO3 ABG 16 mmol/L (21-28); PCO2 ABG 30 mmHg (35-46); PO2 ABG 83 mmHg (65-108); SAT O2 ABG 95 % (92-99)
--- NOTE | 2019-12-15 09:32 | RAD ---
PORTABLE CHEST 1V History: Respiratory failure Comparison: December 13, 2019 Findings: 2 AP views of the chest are submitted. There is now enteric catheter coursing into the stomach. There is now apparently endotracheal tube with tip about 3 cm from renzo, poorly visualized. No convincing pneumothorax is identified by radiograph. There is persistent somewhat hazy airspace opacity with basilar predominance although decreased especially on the right. No significant dependent pleural fluid is identified. Impression: 1. There is enteric catheter and apparently endotracheal tube as described. There is some persistent airspace opacity although decreased especially on the right. Electronically signed by: River Tapia MD (12/15/2019 9:29 AM) [facility]
[2019-12-15 09:50] LABS: FIO2 ABG 65%+8
[2019-12-15] MEDS: AZITHROMYCIN 250 MG in IV NORMAL SALINE 250ML 250 ML IV SCH (10:10)
[2019-12-15] MEDS: IV NORMAL SALINE 1000ML BAG 1,000 ML IV SCH (11:30)
--- NOTE | 2019-12-15 11:31 | PDOC ---
SUBJECTIVE ROS Intubated, sedated OBJECTIVE Vital Signs Vital Signs Date Time Temp Pulse Resp B/P (MAP) Pulse Ox O2 Delivery O2 Flow Rate FiO2 12/15/19 10:00 48 19 107/49 (68) 99 Ventilator 12/15/19 08:00 98.9 98.9 12/15/19 08:00 2.0 I & 0 Intake and Output 12/15/19 07:00 Intake Total 3203.5 ml Output Total 1270 ml Balance 1933.5 ml IV Total 3203.5 ml Output Urine Total 1270 ml PHYSICAL EXAM Physical Exam GENERAL: intubated HEENT: Intubated NECK: Supple, LUNGS: crackles+ decreased at bases, HEART: RRR, S1, S2 present. ABDOMEN: Soft, nontender. EXTREMITIES: Without any cyanosis, clubbing, or edema. 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 Dinh's care, he didint keep fu appt earlier this year , Last seen by Dr Dinh in Apr 2019 Acute Resp Failure/ARDS - COVID-19 positive test with Acute Pneumonia Mildly elevated CK-monitor, Statin dced HypoNatremia- resolved Renal Cyst- Ct abdomen 2018- 1.8 cm mass at the left renal upper pole may represent a proteinaceous/hemorrhagic cyst but is indeterminate without contrast. Renal ultrasound done in 2019 - focus of different echogenicity of the superior left kidney apparently corresponding with the CT findings Somewhat complicated cyst is favored. COMMENT/RELEVANT DATA Meds Current Medications Medications (Trade) Dose Ordered Sig/Aga Start Time Stop Time Status Last Admin Dose Admin Acetaminophen (Tylenol Supp) 650 mg PRN Q6HRS PRN 12/12/19 07:45 12/14/19 19:07 650 MG Acetaminophen (Tylenol) 1,000 mg PRN Q6HRS PRN 12/09/19 15:30 12/09/19 18:00 DC Allopurinol (Zyloprim) 100 mg DAILY 12/10/19 17:00 12/12/19 12:03 100 MG Amino Acids/ Glycerin/ Electrolytes 1,000 ml @ 50 mls/hr Q20H 12/12/19 10:15 12/15/19 00:25 50 MLS/HR Amlodipine Besylate (Norvasc) 5 mg DAILY 12/10/19 17:00 12/12/19 12:05 5 MG Artificial Tears (Artificial Tears) 1 drop [id number] 12/10/19 17:00 12/10/19 16:44 DC Aspirin (Ecotrin) 81 mg DAILY 12/10/19 17:00 12/13/19 12:42 81 MG Azithromycin 250 ml @ 250 mls/hr 1X ONCE 12/10/19 16:30 12/10/19 17:29 UNV Azithromycin 250 mg/Sodium Chloride 250 ml @ 250 mls/hr Q24H 12/15/19 10:00 12/15/19 10:10 250 MLS/HR Azithromycin 500 mg/Sodium Chloride 250 ml @ 250 mls/hr Q24H 12/10/19 18:00 12/13/19 11:18 DC 12/12/19 17:21 250 MLS/HR Carbidopa/Levodopa (Sinemet 25/100) 2 tab TID 12/10/19 17:00 12/15/19 09:12 2 TAB Ceftriaxone Sodium (Rocephin) 1 gm Q24H 12/10/19 18:00 12/13/19 09:07 DC 12/12/19 17:24 1 GM Cetirizine HCl (ZyrTEC) 10 mg DAILY 12/10/19 17:00 12/15/19 09:12 10 MG Chlorhexidine Gluconate (Peridex) 15 ml BID 12/13/19 21:00 12/15/19 09:12 15 ML Dextrose (Dextrose 50%-Water Syringe) 12.5 gm PRN Q15MIN PRN 12/10/19 00:30 12/12/19 21:21 12.5 GM Enoxaparin Sodium (Lovenox 30mg Syringe) 30 mg Q24H 12/12/19 12:00 12/14/19 11:29 30 MG Fentanyl Citrate 30 ml @ 2.5 mls/hr CONT PRN 12/13/19 10:15 12/15/19 08:18 2.5 MLS/HR Ferrous Sulfate (Feosol) 325 mg DAILY08 12/10/19 17:00 12/12/19 12:04 325 MG Fluticasone Propionate (Flonase) 2 spray DAILY 12/11/19 09:00 12/15/19 09:14 2 SPRAY Glipizide (Glucotrol) 5 mg DAILYWSUP 12/10/19 17:00 12/11/19 08:03 DC 12/10/19 17:18 5 MG Hydrochlorothiazide (Hydrodiuril) 25 mg DAILY 12/10/19 17:00 12/12/19 12:03 25 MG Hydroxychloroquine Sulfate (Plaquenil) 200 mg BID 12/15/19 09:00 12/17/19 21:01 12/15/19 09:12 200 MG Lactobacillus Rhamnosus (Culturelle) 1 cap BID 12/11/19 21:00 12/15/19 08:34 DC 12/14/19 20:48 1 CAP Levothyroxine Sodium (Synthroid) 50 mcg DAILY06 12/11/19 06:00 12/15/19 05:33 50 MCG Lisinopril (Prinivil) 10 mg DAILY 12/10/19 17:00 12/11/19 09:21 10 MG Morphine Sulfate (Morphine Sulfate) 4 mg PRN Q1HR PRN 12/13/19 10:15 12/13/19 12:40 4 MG Non-Formulary Medication (Carboxymethylcellulose Sodium (Lubricant Eye Drops)) 1 each HS 12/10/19 21:00 UNV Norepinephrine Bitartrate 8 mg/ Dextrose 258 ml @ 13.545 mls/ hr CONT PRN 12/13/19 15:30 12/14/19 21:08 7.9 MLS/HR Pantoprazole Sodium (Protonix) 40 mg DAILYAC 12/10/19 16:30 12/11/19 09:21 40 MG Piperacillin Sod/ Tazobactam Sod 3.375 gm/Sodium Chloride 50 ml @ 100 mls/hr Q6HRS 12/13/19 10:00 12/15/19 05:33 100 MLS/HR Piperacillin Sod/ Tazobactam Sod 4.5 gm/Sodium Chloride 100 ml @ 200 mls/hr Q6HRS 12/13/19 12:00 UNV Propofol 100 ml @ As Directed STK-MED ONCE 12/13/19 09:33 12/13/19 14:12 DC Simvastatin (Zocor) 20 mg QHS 12/10/19 21:00 12/13/19 11:28 DC 12/11/19 21:31 20 MG Sodium Polystyrene Sulfonate (Kayexalate) 15 gm 1X ONCE 12/09/19 13:45 12/09/19 13:46 DC 12/09/19 14:35 15 GM Sodium Chloride 1,000 ml @ 75 mls/hr [id number] 12/12/19 11:00 12/14/19 20:25 75 MLS/HR Tamsulosin HCl (Flomax) 0.4 mg DAILY 12/10/19 17:00 12/12/19 12:05 0.4 MG Vancomycin HCl (Vanco Per Pharmacy) 1 each PRN DAILY PRN 12/13/19 09:00 12/15/19 08:30 1 EACH Vancomycin HCl (Vancomycin Random Level) 1 each 1X ONCE 12/14/19 05:00 12/14/19 05:01 DC 12/14/19 04:52 1 EACH Vancomycin HCl (Vancomycin Trough Level) 1 each 1X ONCE 12/16/19 08:30 12/16/19 08:31 Vancomycin HCl 1.5 gm/Sodium Chloride 500 ml @ 250 mls/hr 1X ONCE 12/13/19 10:00 12/13/19 11:59 DC 12/13/19 11:11 250 MLS/HR Vancomycin HCl 1 gm/Sodium Chloride 250 ml @ 250 mls/hr Q48H 12/14/19 09:00 12/14/19 08:47 250 MLS/HR Vecuronium [place] (Norcuron Bolus) 6 mg 1X ONCE 12/14/19 12:45 12/14/19 12:52 DC 12/14/19 12:55 6 MG Warfarin Sodium (Coumadin Per Physician) 1 each PRN DAILY PRN 12/10/19 16:30 12/10/19 16:44 DC Warfarin Sodium (Coumadin) 3 mg 1X 12/10/19 16:00 12/10/19 16:44 DC Lab Laboratory Tests Test 12/14/19 11:35 12/14/19 18:00 12/14/19 19:12 12/14/19 23:43 Glucose (Fingerstick) 167 mg/dL (70-99) 153 mg/dL (70-99) 171 mg/dL (70-99) Fibrinogen 608 mg/dL (200-440) D-Dimer (Tamar) 3.13 ug/mlFEU (0.00-0.50) Test 12/15/19 05:00 12/15/19 06:08 12/15/19 08:00 White Blood Count 7.6 x10^3/uL (4.0-11.0) Red Blood Count 3.33 x10^6/uL (4.30-5.70) Hemoglobin 9.9 g/dL (13.0-17.5) Hematocrit 29.7 % (39.0-53.0) Mean Corpuscular Volume 89 fL (79-100) Mean Corpuscular Hemoglobin 30 pg (25-35) Mean Corpuscular Hemoglobin Concent 33 g/dL (31-37) Red Cell Distribution Width 16.0 % (11.5-14.5) Platelet Count 114 x10^3/uL (140-400) Neutrophils (%) (Auto) 82 % (31-73) Lymphocytes (%) (Auto) 9 % (24-48) Monocytes (%) (Auto) 8 % (0-9) Eosinophils (%) (Auto) 1 % (0-3) Basophils (%) (Auto) 0 % (0-3) Neutrophils # (Auto) 6.3 x10^3/uL (1.8-7.7) Lymphocytes # (Auto) 0.7 x10^3/uL (1.0-4.8) Monocytes # (Auto) 0.6 x10^3/uL (0.0-1.1) Eosinophils # (Auto) 0.1 x10^3/uL (0.0-0.7) Basophils # (Auto) 0.0 x10^3/uL (0.0-0.2) Sodium Level 136 mmol/L (136-145) Potassium Level 5.1 mmol/L (3.5-5.1) Chloride Level 107 mmol/L (98-107) Carbon Dioxide Level 16 mmol/L (21-32) Anion Gap 13 (6-14) Blood Urea Nitrogen 48 mg/dL (8-26) Creatinine 2.3 mg/dL (0.7-1.3) Estimated GFR (Cockcroft-Gault) 32.8 Glucose Level 195 mg/dL (70-99) Calcium Level 8.0 mg/dL (8.5-10.1) Phosphorus Level 2.9 mg/dL (2.6-4.7) Albumin 1.7 g/dL (3.4-5.0) Glucose (Fingerstick) 178 mg/dL (70-99) O2 Saturation 95 % (92-99) Arterial Blood pH 7.34 (7.35-7.45) Arterial Blood pCO2 at Patient Temp 30 mmHg (35-46) Arterial Blood pO2 at Patient Temp 83 mmHg (65-108) Arterial Blood HCO3 16 mmol/L (21-28) Arterial Blood Base Excess -9 mmol/L (-3-3) FiO2 65%+8 Results All relevant outside records, renal labs, imaging studies, telemetry/EKG's were reviewed. WILLA ANDREA MD Dec 15, 2019 11:31
[2019-12-15] MEDS: ENOXAPARIN 30 MG/0.3 ML SYRINGE. SQ SCH (11:35)
[2019-12-15 11:45] LABS: D-DIMER 5.22 ug/mlFEU (0.00-0.50)
--- NOTE | 2019-12-15 13:43 | PDOC ---
[employer] PROGRESS NOTE Chief Complaint Chief Complaint Covid 19 positive Respiratory failure requiring intubation and mechanical ventilation Pneumonia Chronic renal failure Debility Weakness Fevers Arthritis, diabetes, back surgery, knee surgery and thyroid surgery. History of Present Illness History of Present Illness [id number] Patient seen and examined in the ICU He remains intubated and mechanically ventilated He is on pressure control was 65% FiO2 Has a levo fed drip Sedated with propofol and fentanyl Covid 19 testing is now positive Chart reviewed Discussed with RN He is critically ill [id number] Patient seen and examined in the ICU He is mechanically ventilated then we just switched him over to pressure control 75% FiO2 Telecommunications Rep[employer]r ordered paralytics as the patient has not interfacing with the nt well Chart reviewed Discussed with RN He is critically ill [id number] Patient seen and examined now transferred to the ICU In respiratory isolation and intubated On 100% oxygen assist-control He is extremely critically ill Chart reviewed Discussed with RN [id number] Patient seen and examined He is still confused and weak Discussed with RN Patient coughed a little bit with some water We are going to get speech therapy eval Also starting some IV PPN Continue in physical therapy occupational therapy and current medications [id number] Patient seen and examined Chart reviewed Discussed with RN He looks a little better today but very weak Suspect he is going to need prison? [id number] Patient seen and examined Chart reviewed discussed with RN Spoke with his daughter Nayeli Vitals/I&O Vitals/I&O: Vital Signs Date Time Temp Pulse Resp B/P (MAP) Pulse Ox O2 Delivery O2 Flow Rate FiO2 12/15/19 13:00 68 25 102/51 (68) 100 Ventilator 12/15/19 12:00 99.2 99.2 12/15/19 12:00 2.0 I & O 12/14/19 12/14/19 12/15/19 15:00 23:00 07:00 Intake Total 550 ml 792 ml 1861.5 ml Output Total 450 ml 350 ml 470 ml Balance 100 ml 442 ml 1391.5 ml Physical Exam General: Other (bucking the vent, we just ordered some paralytics) Heart: No murmurs, Other (tachycardic at 102 bpm distant S1-S2) Lungs: Crackles, Other (equal breath sounds. no wheezing) Abdomen: Soft Extremities: No clubbing, No cyanosis Skin: No rashes, No breakdown Labs Labs: Laboratory Tests Test 12/14/19 18:00 12/14/19 19:12 12/14/19 23:43 12/15/19 05:00 Fibrinogen 608 mg/dL (200-440) D-Dimer (Tamar) 3.13 ug/mlFEU (0.00-0.50) Glucose (Fingerstick) 153 mg/dL (70-99) 171 mg/dL (70-99) White Blood Count 7.6 x10^3/uL (4.0-11.0) Red Blood Count 3.33 x10^6/uL (4.30-5.70) Hemoglobin 9.9 g/dL (13.0-17.5) Hematocrit 29.7 % (39.0-53.0) Mean Corpuscular Volume 89 fL (79-100) Mean Corpuscular Hemoglobin 30 pg (25-35) Mean Corpuscular Hemoglobin Concent 33 g/dL (31-37) Red Cell Distribution Width 16.0 % (11.5-14.5) Platelet Count 114 x10^3/uL (140-400) Neutrophils (%) (Auto) 82 % (31-73) Lymphocytes (%) (Auto) 9 % (24-48) Monocytes (%) (Auto) 8 % (0-9) Eosinophils (%) (Auto) 1 % (0-3) Basophils (%) (Auto) 0 % (0-3) Neutrophils # (Auto) 6.3 x10^3/uL (1.8-7.7) Lymphocytes # (Auto) 0.7 x10^3/uL (1.0-4.8) Monocytes # (Auto) 0.6 x10^3/uL (0.0-1.1) Eosinophils # (Auto) 0.1 x10^3/uL (0.0-0.7) Basophils # (Auto) 0.0 x10^3/uL (0.0-0.2) Sodium Level 136 mmol/L (136-145) Potassium Level 5.1 mmol/L (3.5-5.1) Chloride Level 107 mmol/L (98-107) Carbon Dioxide Level 16 mmol/L (21-32) Anion Gap 13 (6-14) Blood Urea Nitrogen 48 mg/dL (8-26) Creatinine 2.3 mg/dL (0.7-1.3) Estimated GFR (Cockcroft-Gault) 32.8 Glucose Level 195 mg/dL (70-99) Calcium Level 8.0 mg/dL (8.5-10.1) Phosphorus Level 2.9 mg/dL (2.6-4.7) Albumin 1.7 g/dL (3.4-5.0) Test 12/15/19 06:08 12/15/19 08:00 12/15/19 10:30 12/15/19 12:22 Glucose (Fingerstick) 178 mg/dL (70-99) 170 mg/dL (70-99) O2 Saturation 95 % (92-99) Arterial Blood pH 7.34 (7.35-7.45) Arterial Blood pCO2 at Patient Temp 30 mmHg (35-46) Arterial Blood pO2 at Patient Temp 83 mmHg (65-108) Arterial Blood HCO3 16 mmol/L (21-28) Arterial Blood Base Excess -9 mmol/L (-3-3) FiO2 65%+8 Fibrinogen 673 mg/dL (200-440) D-Dimer (Tamar) 5.22 ug/mlFEU (0.00-0.50) Assessment and Plan Assessmemt and Plan Problems Medical Problems: (1) Bilateral pneumonia Status: Acute (2) Fever Status: Acute (3) Hypoglycemia Status: Acute (4) Renal insufficiency Status: Acute (5) Suspected 2019 novel coronavirus infection Status: Acute (6) Weakness Status: Acut Covid 19 positive with severe pneumonia Fulminant respiratory failure requiring mechanical ventilation Chronic renal failure Debility Weakness Fevers Arthritis, diabetes, back surgery, knee surgery and thyroid surgery. Plan ICU monitoring Mechanical ventilation (changed him to pressure control and added in paralytics, agree) Await further input from pulmonary and nephrology Beta agonist Trend labs Home meds DVT prophylaxis Full code He is critically ill Total time 32 minutes Comment Review of Relevant I have reviewed the following items sammie (where applicable) has been applied. Medications: Current Medications Medications (Trade) Dose Ordered Sig/Aga Route PRN Reason Start Time Stop Time Status Last Admin Dose Admin Hydroxychloroquine Sulfate (Plaquenil) 200 mg BID PO 12/15/19 09:00 12/17/19 21:01 12/15/19 09:12 Azithromycin 250 mg/Sodium Chloride 250 ml @ 250 mls/hr Q24H IV 12/15/19 10:00 12/15/19 10:10 EDIE CRISTOBAL III DO Dec 15, 2019 13:43
[2019-12-15] MEDS: ACETAMINOPHEN 650 MG SUPP.RECT. PR PRN (17:55)
[2019-12-16] VITALS (23 sets, daily range): BP systolic 82–140; BP diastolic 27–64
[2019-12-16 04:45] LABS: BASO % 0 % (0-3); EOS # 0.2 x10^3/uL (0.0-0.7); EOS % 2 % (0-3); HEMATOCRIT 30.8 % (39.0-53.0); LYMPH # 0.6 x10^3/uL (1.0-4.8); LYMPH % 7 % (24-48); MEAN CORPUSCULAR HEMOGLOBIN 30 pg (25-35); MEAN CORPUSCULAR HGB CONC 33 g/dL (31-37); MEAN CORPUSCULAR VOLUME 91 fL (79-100); MONO # 0.6 x10^3/uL (0.0-1.1); MONO % 6 % (0-9); NEUT % 85 % (31-73); PLATELET COUNT 116 x10^3/uL (140-400); RED BLOOD COUNT 3.39 x10^6/uL (4.30-5.70); RED CELL DISTRIBUTION WIDTH 16.8 % (11.5-14.5); WHITE BLOOD COUNT 9.5 x10^3/uL (4.0-11.0)
[2019-12-16 05:00] LABS: ALBUMIN 1.7 g/dL (3.4-5.0); CREATININE 2.3 mg/dL (0.7-1.3); GFR 32.8; PHOSPHORUS 3.9 mg/dL (2.6-4.7); POTASSIUM 5.2 mmol/L (3.5-5.1)
[2019-12-16] MEDS: NOREPINEPHRINE VIAL 8 MG in IV DEXTROSE 5% 250 ML IV PRN (05:15)
[2019-12-16] MEDS: IV NORMAL SALINE 1000ML BAG 1,000 ML IV SCH ×3 (05:16→22:22)
[2019-12-16] MEDS: PROPOFOL 100 ML IV PRN (05:16)
[2019-12-16] MEDS: PIPERACILLIN/TAZOBACTAM 3.375 GM in IV NORMAL SALINE 50ML 50 ML IV SCH ×3 (05:17→18:00)
[2019-12-16] MEDS: LEVOTHYROXINE 50 MCG TABLET PO SCH (06:00)
--- NOTE | 2019-12-16 08:17 | RAD ---
EXAM: CHEST 1 VIEW History: Respiratory failure COMPARISON: 12/15/2019 TECHNIQUE: Single portable radiograph of the chest FINDINGS: Moderate cardiomegaly . Diffuse prominent bilateral interstitial lung markings with diffuse patchy airspace opacities similar to prior exam.. The costophrenic sulci are clear and well demarcated. Feeding tube tip identified in the stomach. IMPRESSION: Diffuse prominent bilateral interstitial lung markings with patchy airspace opacities likely interstitial infiltrates or congestive changes similar to prior exam. Electronically signed by: Buddy Trejo MD (12/16/2019 8:14 AM) [id number]
--- NOTE | 2019-12-16 08:28 | PDOC ---
PULMONARY PROGRESS NOTES Subjective Patient overnight hemodynamically stable continues to require norepinephrine Currently not well sedated on pressure control ventilation rate of 20 pressure of 65% FiO2 8 of PEEP Requiring norepinephrine at 7.9 mics Vitals Vital Signs Date Time Temp Pulse Resp B/P (MAP) Pulse Ox O2 Delivery O2 Flow Rate FiO2 12/16/19 06:00 68 20 105/52 (69) 97 Ventilator 12/16/19 04:00 98.4 98.4 12/15/19 20:00 2.0 Comments intubated. Lungs: Crackles, Other (equal breath sounds. no wheezing) Cardiovascular: S1, S2 Abdomen: Soft Extremities: No Edema Skin: Warm Labs Laboratory Tests Test 12/14/19 11:35 12/14/19 18:00 12/14/19 19:12 12/14/19 23:43 Glucose (Fingerstick) 167 mg/dL (70-99) 153 mg/dL (70-99) 171 mg/dL (70-99) Fibrinogen 608 mg/dL (200-440) D-Dimer (Tamar) 3.13 ug/mlFEU (0.00-0.50) Test 12/15/19 05:00 12/15/19 06:08 12/15/19 08:00 12/15/19 10:30 White Blood Count 7.6 x10^3/uL (4.0-11.0) Red Blood Count 3.33 x10^6/uL (4.30-5.70) Hemoglobin 9.9 g/dL (13.0-17.5) Hematocrit 29.7 % (39.0-53.0) Mean Corpuscular Volume 89 fL (79-100) Mean Corpuscular Hemoglobin 30 pg (25-35) Mean Corpuscular Hemoglobin Concent 33 g/dL (31-37) Red Cell Distribution Width 16.0 % (11.5-14.5) Platelet Count 114 x10^3/uL (140-400) Neutrophils (%) (Auto) 82 % (31-73) Lymphocytes (%) (Auto) 9 % (24-48) Monocytes (%) (Auto) 8 % (0-9) Eosinophils (%) (Auto) 1 % (0-3) Basophils (%) (Auto) 0 % (0-3) Neutrophils # (Auto) 6.3 x10^3/uL (1.8-7.7) Lymphocytes # (Auto) 0.7 x10^3/uL (1.0-4.8) Monocytes # (Auto) 0.6 x10^3/uL (0.0-1.1) Eosinophils # (Auto) 0.1 x10^3/uL (0.0-0.7) Basophils # (Auto) 0.0 x10^3/uL (0.0-0.2) Sodium Level 136 mmol/L (136-145) Potassium Level 5.1 mmol/L (3.5-5.1) Chloride Level 107 mmol/L (98-107) Carbon Dioxide Level 16 mmol/L (21-32) Anion Gap 13 (6-14) Blood Urea Nitrogen 48 mg/dL (8-26) Creatinine 2.3 mg/dL (0.7-1.3) Estimated GFR (Cockcroft-Gault) 32.8 Glucose Level 195 mg/dL (70-99) Calcium Level 8.0 mg/dL (8.5-10.1) Phosphorus Level 2.9 mg/dL (2.6-4.7) Albumin 1.7 g/dL (3.4-5.0) Glucose (Fingerstick) 178 mg/dL (70-99) O2 Saturation 95 % (92-99) Arterial Blood pH 7.34 (7.35-7.45) Arterial Blood pCO2 at Patient Temp 30 mmHg (35-46) Arterial Blood pO2 at Patient Temp 83 mmHg (65-108) Arterial Blood HCO3 16 mmol/L (21-28) Arterial Blood Base Excess -9 mmol/L (-3-3) FiO2 65%+8 Fibrinogen 673 mg/dL (200-440) D-Dimer (Tamar) 5.22 ug/mlFEU (0.00-0.50) Test 12/15/19 12:22 12/15/19 17:57 12/16/19 00:20 12/16/19 04:30 Glucose (Fingerstick) 170 mg/dL (70-99) 122 mg/dL (70-99) 141 mg/dL (70-99) White Blood Count 9.5 x10^3/uL (4.0-11.0) Red Blood Count 3.39 x10^6/uL (4.30-5.70) Hemoglobin 10.0 g/dL (13.0-17.5) Hematocrit 30.8 % (39.0-53.0) Mean Corpuscular Volume 91 fL (79-100) Mean Corpuscular Hemoglobin 30 pg (25-35) Mean Corpuscular Hemoglobin Concent 33 g/dL (31-37) Red Cell Distribution Width 16.8 % (11.5-14.5) Platelet Count 116 x10^3/uL (140-400) Neutrophils (%) (Auto) 85 % (31-73) Lymphocytes (%) (Auto) 7 % (24-48) Monocytes (%) (Auto) 6 % (0-9) Eosinophils (%) (Auto) 2 % (0-3) Basophils (%) (Auto) 0 % (0-3) Neutrophils # (Auto) 8.0 x10^3/uL (1.8-7.7) Lymphocytes # (Auto) 0.6 x10^3/uL (1.0-4.8) Monocytes # (Auto) 0.6 x10^3/uL (0.0-1.1) Eosinophils # (Auto) 0.2 x10^3/uL (0.0-0.7) Basophils # (Auto) 0.0 x10^3/uL (0.0-0.2) Sodium Level 136 mmol/L (136-145) Potassium Level 5.2 mmol/L (3.5-5.1) Chloride Level 106 mmol/L (98-107) Carbon Dioxide Level 18 mmol/L (21-32) Anion Gap 12 (6-14) Blood Urea Nitrogen 50 mg/dL (8-26) Creatinine 2.3 mg/dL (0.7-1.3) Estimated GFR (Cockcroft-Gault) 32.8 Glucose Level 142 mg/dL (70-99) Calcium Level 8.0 mg/dL (8.5-10.1) Phosphorus Level 3.9 mg/dL (2.6-4.7) Albumin 1.7 g/dL (3.4-5.0) Laboratory Tests Test 12/15/19 10:30 12/15/19 12:22 12/15/19 17:57 12/16/19 00:20 Fibrinogen 673 mg/dL (200-440) D-Dimer (Tamar) 5.22 ug/mlFEU (0.00-0.50) Glucose (Fingerstick) 170 mg/dL (70-99) 122 mg/dL (70-99) 141 mg/dL (70-99) Test 12/16/19 04:30 White Blood Count 9.5 x10^3/uL (4.0-11.0) Red Blood Count 3.39 x10^6/uL (4.30-5.70) Hemoglobin 10.0 g/dL (13.0-17.5) Hematocrit 30.8 % (39.0-53.0) Mean Corpuscular Volume 91 fL (79-100) Mean Corpuscular Hemoglobin 30 pg (25-35) Mean Corpuscular Hemoglobin Concent 33 g/dL (31-37) Red Cell Distribution Width 16.8 % (11.5-14.5) Platelet Count 116 x10^3/uL (140-400) Neutrophils (%) (Auto) 85 % (31-73) Lymphocytes (%) (Auto) 7 % (24-48) Monocytes (%) (Auto) 6 % (0-9) Eosinophils (%) (Auto) 2 % (0-3) Basophils (%) (Auto) 0 % (0-3) Neutrophils # (Auto) 8.0 x10^3/uL (1.8-7.7) Lymphocytes # (Auto) 0.6 x10^3/uL (1.0-4.8) Monocytes # (Auto) 0.6 x10^3/uL (0.0-1.1) Eosinophils # (Auto) 0.2 x10^3/uL (0.0-0.7) Basophils # (Auto) 0.0 x10^3/uL (0.0-0.2) Sodium Level 136 mmol/L (136-145) Potassium Level 5.2 mmol/L (3.5-5.1) Chloride Level 106 mmol/L (98-107) Carbon Dioxide Level 18 mmol/L (21-32) Anion Gap 12 (6-14) Blood Urea Nitrogen 50 mg/dL (8-26) Creatinine 2.3 mg/dL (0.7-1.3) Estimated GFR (Cockcroft-Gault) 32.8 Glucose Level 142 mg/dL (70-99) Calcium Level 8.0 mg/dL (8.5-10.1) Phosphorus Level 3.9 mg/dL (2.6-4.7) Albumin 1.7 g/dL (3.4-5.0) Medications Active Scripts Medications Dose Route/Sig Max Daily Dose Days Date Category Dose Instructions Warfarin Sodium 3 Mg Tablet 1 Tab PO 1X 09/28/17 Reported Fluticasone Propionate Nasal [place] (Fluticasone Propionate) 16 Gm [place].susp 2 [place] NS DAILY 09/25/17 Reported last dos this am next dose tomorrow am (monday) Lubricant Eye Drops (Propylene Glycol) 10 Ml Drops 10 Ml OP [id number] 09/25/17 Reported last dose after lunch next dose with supper/ bedtime Lubricant Eye Drops (Carboxymethylcellulose Sodium) 1 Each Droperette 1 Each OP HS 09/25/17 Reported last dose last evening next dosetonight provided his own Glipizide 5 Mg Tablet 5 Mg PO DAILYWSUP 07/12/16 Reported last dose last night next dose tonight with supper Glipizide 5 Mg Tablet 2.5 Mg PO DAILY 07/12/16 Reported last dose this am (next dose tomorrow am monday) Loratadine 10 Mg Tablet 10 Mg PO 06/27/16 Reported last dose this am next dose tomorrow am(monday) Omeprazole 20 Mg Capsule.dr 20 Mg PO DAILY 06/27/16 Reported last dose this am next dose tomorrow am (monday) Ferrous Sulfate 325 Mg Tablet 1 Tab PO DAILY 06/27/16 Reported last dose this am next dose tonight Aspir 81 (Aspirin) 81 Mg Tablet.dr 81 Mg PO DAILY 06/27/16 Reported Amlodipine-Benazepril 5-10 Mg (Amlodipine Besylate/Benazepril) 1 Each Capsule 1 Cap PO DAILY 06/27/16 Reported last dos this am next dose tomorrow am (monday) Tamsulosin Hcl 0.4 Mg Cap.er.24h 1 Cap PO DAILY 10/06/14 Reported last dose this am next dose tomorrow am (monday) Simvastatin 20 Mg Tablet 1 Tab PO QHS 10/06/14 Reported last dose last evening next dose tonight Hydrochlorothiazide Tablet (Hydrochlorothiazide) 25 Mg Tablet 1 Tab PO DAILY 10/06/14 Reported last dos this am next dose tomorrow am (monday) Allopurinol 100 Mg Tablet 1 Tab PO DAILY 10/06/14 Reported last dose this am next dose tomorrow on monday Levothyroxine Sodium 50 Mcg Tablet 1 Tab PO DAILY 10/06/14 Reported last dose this am next dose tomorrow am (monday) Impression . 1. Acute respiratory failure secondary ARDS 2. Pneumonia, COVID-19 positive test (U07.1, COVID-19) with Acute Pneumonia (J12.89, Other viral pneumonia) (If respiratory failure or sepsis present, add as separate assessment) 3. diabetes 4. Abnormal chest x-ray, suspect pneumonia gram-negative gram-positive, possibly viral This is an 84-year-old, who presents with comorbidities including debility, diabetes, and chronic kidney disease on top of acute kidney disease with abnormal chest x-ray. 5. Septic shock 6. Protein malnutrition present upon admission 7. Acute kidney injury Labs reviewed, chest x-ray reviewed Plan . Spoke with nurse, will change sedation, if needed will use a paralytic Lung compliance has improved, decrease pressure control to 10 maintain tidal volumes of 4 to 5 cc/kg Needs to be heavily sedated D-dimer and fibrinogen elevated will repeat testing, repeat EKG Empiric hydro-hydroxychloroquine, will add Zithromax Continue vancomycin and Zosyn We will consider Tocilizumab if he continues to worsen, I have checked with pharmacy, will check criteria from corporate DVT GI prophylaxis Nutritional support with tube feeding The above was discussed with RN and RT Total cumulative critical care time of 40 minutes reviewing data, labs, chest x- ray, and managing VISHNU Dominguez MD Dec 16, 2019 08:28
[2019-12-16] MEDS: FLUTICASONE 50MCG/NASAL SPRAY 16GM BOTTLE. NS SCH (09:00)
[2019-12-16] MEDS: CETIRIZINE HCL 10 MG TABLET. PO SCH (09:00)
[2019-12-16] MEDS: CHLORHEXIDINE 0.12% 15 ML MOUTHWASH. MM SCH ×2 (09:00→22:20)
[2019-12-16] MEDS: TAMSULOSIN 0.4 MG CAP.ER.24H. PO SCH (09:00)
[2019-12-16] MEDS: CARBIDOPA/LEVODOPA 25/100MG TABLET PO SCH ×3 (09:04→22:20)
[2019-12-16] MEDS: ASPIRIN ENTERIC COATED 81 MG TABLET.DR. PO SCH (09:04)
[2019-12-16] MEDS: hydroCHLOROthiazide 25 MG TABLET PO SCH (09:04)
[2019-12-16] MEDS: ALLOPURINOL 100 MG TABLET. PO SCH (09:04)
[2019-12-16] MEDS: PANTOPRAZOLE 40 MG TABLET.DR. PO SCH (09:04)
[2019-12-16] MEDS: amLODIPine BESYLATE 5 MG TABLET PO SCH (09:05)
[2019-12-16] MEDS: FERROUS SULFATE 325 MG TABLET. PO SCH (09:05)
[2019-12-16] MEDS: LISINOPRIL 10 MG TABLET PO SCH (09:05)
[2019-12-16] MEDS: glipiZIDE 5 MG TABLET PO SCH (09:06)
[2019-12-16] MEDS: HYDROXYCHLOROQUINE 200 MG TABLET PO SCH ×2 (09:06→22:20)
[2019-12-16 09:47] LABS: BASE EXCESS ABG -11 mmol/L (-3-3); HCO3 ABG 15 mmol/L (21-28); PCO2 ABG 31 mmHg (35-46); PO2 ABG 97 mmHg (65-108); SAT O2 ABG 97 % (92-99)
[2019-12-16 10:17] LABS: FIO2 ABG 65
[2019-12-16] MEDS: VANCOMYCIN 1 GM in IV NORMAL SALINE 250ML 250 ML IV SCH (10:42)
[2019-12-16] MEDS ORDERED: VECURONIUM BOLUS 10 MG VIAL. IV ONE ×2 (10:45→11:15)
[2019-12-16 11:05] LABS: VANC TR 11.2 mcg/mL (10.0-20.0)
[2019-12-16] MEDS: AZITHROMYCIN 250 MG in IV NORMAL SALINE 250ML 250 ML IV SCH (11:31)
--- NOTE | 2019-12-16 11:43 | PDOC ---
[facility] PROGRESS NOTE Chief Complaint Chief Complaint Covid 19 positive ARDS Respiratory failure requiring intubation and mechanical ventilation Pneumonia Chronic renal failure Debility Weakness Fevers Arthritis, diabetes, back surgery, knee surgery and thyroid surgery. History of Present Illness History of Present Illness [id number] Patient seen and examined in the ICU He remains critically ill and on the vent Sedated with propofol and fentanyl On a levo fed drip In respiratory isolation because of Covid positive testing [id number] Patient seen and examined in the ICU He remains intubated and mechanically ventilated He is on pressure control was 65% FiO2 Has a levo fed drip Sedated with propofol and fentanyl Covid 19 testing is now positive Chart reviewed Discussed with RN He is critically ill [id number] Patient seen and examined in the ICU He is mechanically ventilated then we just switched him over to pressure control 75% FiO2 [employer] ordered paralytics as the patient has not interfacing with the vent well Chart reviewed Discussed with RN He is critically ill [id number] Patient seen and examined now transferred to the ICU In respiratory isolation and intubated On 100% oxygen assist-control He is extremely critically ill Chart reviewed Discussed with RN [id number] Patient seen and examined He is still confused and weak Discussed with RN Patient coughed a little bit with some water We are going to get speech therapy eval Also starting some IV PPN Continue in physical therapy occupational therapy and current medications [id number] Patient seen and examined Chart reviewed Discussed with RN He looks a little better today but very weak Suspect he is going to need detention? [id number] Patient seen and examined Chart reviewed discussed with RN Spoke with his daughter Nayeli Vitals/I&O Vitals/I&O: Vital Signs Date Time Temp Pulse Resp B/P (MAP) Pulse Ox O2 Delivery O2 Flow Rate FiO2 12/16/19 10:00 77 30 121/57 (78) 98 Ventilator 12/16/19 04:00 98.4 98.4 12/15/19 20:00 2.0 I & O 12/15/19 12/15/19 12/16/19 15:00 23:00 07:00 Intake Total 300 ml 1188 ml 2134.4 ml Output Total 585 ml 470 ml 625 ml Balance -285 ml 718 ml 1509.4 ml Physical Exam General: Other (bucking the vent, we just ordered some paralytics) Heart: No murmurs, Other (tachycardic at 102 bpm distant S1-S2) Lungs: Crackles, Other (equal breath sounds. no wheezing) Abdomen: Soft Extremities: No clubbing, No cyanosis Skin: No rashes, No breakdown Labs Labs: Laboratory Tests Test 12/15/19 12:22 12/15/19 17:57 12/16/19 00:20 12/16/19 04:30 Glucose (Fingerstick) 170 mg/dL (70-99) 122 mg/dL (70-99) 141 mg/dL (70-99) White Blood Count 9.5 x10^3/uL (4.0-11.0) Red Blood Count 3.39 x10^6/uL (4.30-5.70) Hemoglobin 10.0 g/dL (13.0-17.5) Hematocrit 30.8 % (39.0-53.0) Mean Corpuscular Volume 91 fL (79-100) Mean Corpuscular Hemoglobin 30 pg (25-35) Mean Corpuscular Hemoglobin Concent 33 g/dL (31-37) Red Cell Distribution Width 16.8 % (11.5-14.5) Platelet Count 116 x10^3/uL (140-400) Neutrophils (%) (Auto) 85 % (31-73) Lymphocytes (%) (Auto) 7 % (24-48) Monocytes (%) (Auto) 6 % (0-9) Eosinophils (%) (Auto) 2 % (0-3) Basophils (%) (Auto) 0 % (0-3) Neutrophils # (Auto) 8.0 x10^3/uL (1.8-7.7) Lymphocytes # (Auto) 0.6 x10^3/uL (1.0-4.8) Monocytes # (Auto) 0.6 x10^3/uL (0.0-1.1) Eosinophils # (Auto) 0.2 x10^3/uL (0.0-0.7) Basophils # (Auto) 0.0 x10^3/uL (0.0-0.2) Sodium Level 136 mmol/L (136-145) Potassium Level 5.2 mmol/L (3.5-5.1) Chloride Level 106 mmol/L (98-107) Carbon Dioxide Level 18 mmol/L (21-32) Anion Gap 12 (6-14) Blood Urea Nitrogen 50 mg/dL (8-26) Creatinine 2.3 mg/dL (0.7-1.3) Estimated GFR (Cockcroft-Gault) 32.8 Glucose Level 142 mg/dL (70-99) Calcium Level 8.0 mg/dL (8.5-10.1) Phosphorus Level 3.9 mg/dL (2.6-4.7) Albumin 1.7 g/dL (3.4-5.0) Test 12/16/19 08:20 12/16/19 10:30 O2 Saturation 97 % (92-99) Arterial Blood pH 7.29 (7.35-7.45) Arterial Blood pCO2 at Patient Temp 31 mmHg (35-46) Arterial Blood pO2 at Patient Temp 97 mmHg (65-108) Arterial Blood HCO3 15 mmol/L (21-28) Arterial Blood Base Excess -11 mmol/L (-3-3) FiO2 65 Vancomycin Level Trough 11.2 mcg/mL (10.0-20.0) Vancomycin Last Dose Date 12/14/19 Vancomycin Last Dose Time 0900 Review of Systems Review of Systems: Unable to obtain Assessment and Plan Assessmemt and Plan Problems Medical Problems: (1) Bilateral pneumonia Status: Acute (2) Fever Status: Acute (3) Hypoglycemia Status: Acute (4) Renal insufficiency Status: Acute (5) Suspected 2019 novel coronavirus infection Status: Acute (6) Weakness Status: Acute Covid 19 positive with severe pneumonia ARDS Fulminant respiratory failure requiring mechanical ventilation Chronic renal failure Debility Weakness Fevers Arthritis, diabetes, back surgery, knee surgery and thyroid surgery. Plan ICU monitoring Mechanical ventilation (changed him to pressure control and added when necessary paralytics, agree) Await further input from pulmonary and nephrology Beta agonist Trend labs Home meds DVT prophylaxis Full code He remains critically ill Total time 35 minutes Comment Review of Relevant I have reviewed the following items sammie (where applicable) has been applied. Medications: Current Medications Medications (Trade) Dose Ordered Sig/Aga Route PRN Reason Start Time Stop Time Status Last Admin Dose Admin Vancomycin HCl (Vancomycin Trough Level) 1 each 1X ONCE MC 12/16/19 08:30 12/16/19 08:31 DC 12/16/19 08:30 EDIE CRISTOBAL III DO Dec 16, 2019 11:43
[2019-12-16] MEDS ORDERED: MIDAZOLAM HCL 50 MG in IV NORMAL SALINE 50ML 50 ML IV PRN (12:15)
[2019-12-16] MEDS: VANCOMYCIN PER PHARMACY MC PRN (12:31)
--- NOTE | 2019-12-16 12:48 | PDOC ---
Renal-Progress Notes Subjective Notes Notes INTUBATED History of Present Illness Hx of present illness CRITICALLY ILL BUT STABLE Vitals Vitals Vital Signs Date Time Temp Pulse Resp B/P (MAP) Pulse Ox O2 Delivery O2 Flow Rate FiO2 12/16/19 12:23 94 Ventilator 12/16/19 11:00 104 20 127/64 (85) 12/16/19 04:00 98.4 98.4 12/15/19 20:00 2.0 Weight Weight [ ] I.O. Intake and Output Intake and Output 12/16/19 07:00 Intake Total 3622.4 ml Output Total 1680 ml Balance 1942.4 ml IV Total 3622.4 ml Output Urine Total 1680 ml Labs Labs Laboratory Tests Test 12/15/19 17:57 12/16/19 00:20 12/16/19 04:30 12/16/19 08:20 Glucose (Fingerstick) 122 mg/dL (70-99) 141 mg/dL (70-99) White Blood Count 9.5 x10^3/uL (4.0-11.0) Red Blood Count 3.39 x10^6/uL (4.30-5.70) Hemoglobin 10.0 g/dL (13.0-17.5) Hematocrit 30.8 % (39.0-53.0) Mean Corpuscular Volume 91 fL (79-100) Mean Corpuscular Hemoglobin 30 pg (25-35) Mean Corpuscular Hemoglobin Concent 33 g/dL (31-37) Red Cell Distribution Width 16.8 % (11.5-14.5) Platelet Count 116 x10^3/uL (140-400) Neutrophils (%) (Auto) 85 % (31-73) Lymphocytes (%) (Auto) 7 % (24-48) Monocytes (%) (Auto) 6 % (0-9) Eosinophils (%) (Auto) 2 % (0-3) Basophils (%) (Auto) 0 % (0-3) Neutrophils # (Auto) 8.0 x10^3/uL (1.8-7.7) Lymphocytes # (Auto) 0.6 x10^3/uL (1.0-4.8) Monocytes # (Auto) 0.6 x10^3/uL (0.0-1.1) Eosinophils # (Auto) 0.2 x10^3/uL (0.0-0.7) Basophils # (Auto) 0.0 x10^3/uL (0.0-0.2) Sodium Level 136 mmol/L (136-145) Potassium Level 5.2 mmol/L (3.5-5.1) Chloride Level 106 mmol/L (98-107) Carbon Dioxide Level 18 mmol/L (21-32) Anion Gap 12 (6-14) Blood Urea Nitrogen 50 mg/dL (8-26) Creatinine 2.3 mg/dL (0.7-1.3) Estimated GFR (Cockcroft-Gault) 32.8 Glucose Level 142 mg/dL (70-99) Calcium Level 8.0 mg/dL (8.5-10.1) Phosphorus Level 3.9 mg/dL (2.6-4.7) Albumin 1.7 g/dL (3.4-5.0) O2 Saturation 97 % (92-99) Arterial Blood pH 7.29 (7.35-7.45) Arterial Blood pCO2 at Patient Temp 31 mmHg (35-46) Arterial Blood pO2 at Patient Temp 97 mmHg (65-108) Arterial Blood HCO3 15 mmol/L (21-28) Arterial Blood Base Excess -11 mmol/L (-3-3) FiO2 65 Test 12/16/19 10:30 Vancomycin Level Trough 11.2 mcg/mL (10.0-20.0) Vancomycin Last Dose Date 12/14/19 Vancomycin Last Dose Time 0900 Micro Micro Microbiology 12/09/19 Blood Culture - Final, Complete NO GROWTH AFTER 5 DAYS Review of Systems Constitutional: yes: unresponsive, other (ON THE VENT) Physical Exam General Appearance: other (SEDATED) Skin: warm Respiratory: ventilator (Mode:A/C), decreased breath sounds Heart: S1S2 Abdomen: bowel sounds present Genitourinary: bladder flat Extremities: pulses present Neurology: other (SEDATED) Musculoskeletal: Other (SEDATED ON THE VENT) Assessment Assessment IMP BIA-IMPROVING CR OF 3.3 TO 2.3 CKD STAGE 3 WITH BASELINE CR OF 2.0 ACUTE RESP FAILURE-MEHRDAD PNEUMONIA COVID - 19 SEPSIS PLAN HYDRATION PRESSORS NEEDED ANTIBIOTICS STOP HIS YONG-I AND DIURETICS WILL HAVE A PICC LINE PLACED START TPN VENT SUPPORT WILL FOLLOW MARGE TRIPATHI MD Dec 16, 2019 12:48
[2019-12-16] MEDS: MIDAZOLAM HCL 100 MG in IV NORMAL SALINE 100ML 100 ML IV PRN ×2 (12:56→19:49)
[2019-12-16] MEDS: TPN PER PHARMACY MC PRN (14:07)
[2019-12-16] MEDS: ENOXAPARIN 30 MG/0.3 ML SYRINGE. SQ SCH (15:20)
[2019-12-16] MEDS ORDERED: TOTAL PARENTERAL NUTRITION IV SCH ×9 (22:00)
[2019-12-16] MEDS ORDERED: [UNRECOGNIZED DRUG - OTHER] IV SCH ×9 (22:00)
[2019-12-16] MEDS ORDERED: DEXTROSE 70% IV SCH ×9 (22:00)
[2019-12-16] MEDS ORDERED: AMINO ACID IV SCH ×9 (22:00)
[2019-12-17] VITALS (22 sets, daily range): BP systolic 96–194; BP diastolic 48–75
[2019-12-17] MEDS: PIPERACILLIN/TAZOBACTAM 3.375 GM in IV NORMAL SALINE 50ML 50 ML IV SCH ×5 (00:12→23:44)
[2019-12-17 05:11] LABS: BASO % 0 % (0-3); EOS # 0.1 x10^3/uL (0.0-0.7); EOS % 2 % (0-3); HEMATOCRIT 26.1 % (39.0-53.0); HEMOGLOBIN 8.3 g/dL (13.0-17.5); LYMPH # 0.4 x10^3/uL (1.0-4.8); LYMPH % 4 % (24-48); MEAN CORPUSCULAR HEMOGLOBIN 30 pg (25-35); MEAN CORPUSCULAR HGB CONC 32 g/dL (31-37); MEAN CORPUSCULAR VOLUME 93 fL (79-100); MONO # 0.4 x10^3/uL (0.0-1.1); MONO % 5 % (0-9); NEUT # 7.6 x10^3/uL (1.8-7.7); NEUT % 89 % (31-73); PLATELET COUNT 106 x10^3/uL (140-400); RED BLOOD COUNT 2.81 x10^6/uL (4.30-5.70); RED CELL DISTRIBUTION WIDTH 17.3 % (11.5-14.5); WHITE BLOOD COUNT 8.6 x10^3/uL (4.0-11.0)
[2019-12-17 05:29] LABS: ALBUMIN 1.3 g/dL (3.4-5.0); CALCIUM 6.8 mg/dL (8.5-10.1); CREATININE 2.2 mg/dL (0.7-1.3); GFR 34.5; MAGNESIUM 2.4 mg/dL (1.8-2.4); PHOSPHORUS 3.4 mg/dL (2.6-4.7); POTASSIUM 4.2 mmol/L (3.5-5.1)
[2019-12-17] MEDS: LEVOTHYROXINE 50 MCG TABLET PO SCH (05:35)
[2019-12-17] MEDS ORDERED: VECURONIUM BOLUS 10 MG VIAL. IV PRN (08:45)
[2019-12-17] MEDS ORDERED: SODIUM BICARB ADULT 8.4% 50 MEQ/50 ML DISP.SYRIN. IV ONE (08:45)
--- NOTE | 2019-12-17 08:45 | PDOC ---
PULMONARY PROGRESS NOTES Subjective Pt intubated/ sedated on PC mode not well sedated with increase R/R. likely from Metabolic acidosis Vitals Vital Signs Date Time Temp Pulse Resp B/P (MAP) Pulse Ox O2 Delivery O2 Flow Rate FiO2 12/17/19 05:35 26 96 Ventilator 12/17/19 05:00 80 134/52 (79) 12/17/19 04:00 98.4 98.4 Comments Virtual exam done intubated/ sedated increase R/R , no obvious JVD, no rash, trace edema Abdomen: Soft Extremities: Other (trace edema, no rash) Skin: Warm Labs Laboratory Tests Test 12/15/19 10:30 12/15/19 12:22 12/15/19 17:57 12/16/19 00:20 Fibrinogen 673 mg/dL (200-440) D-Dimer (Tamar) 5.22 ug/mlFEU (0.00-0.50) Glucose (Fingerstick) 170 mg/dL (70-99) 122 mg/dL (70-99) 141 mg/dL (70-99) Test 12/16/19 04:30 12/16/19 08:20 12/16/19 10:30 12/16/19 16:38 White Blood Count 9.5 x10^3/uL (4.0-11.0) Red Blood Count 3.39 x10^6/uL (4.30-5.70) Hemoglobin 10.0 g/dL (13.0-17.5) Hematocrit 30.8 % (39.0-53.0) Mean Corpuscular Volume 91 fL (79-100) Mean Corpuscular Hemoglobin 30 pg (25-35) Mean Corpuscular Hemoglobin Concent 33 g/dL (31-37) Red Cell Distribution Width 16.8 % (11.5-14.5) Platelet Count 116 x10^3/uL (140-400) Neutrophils (%) (Auto) 85 % (31-73) Lymphocytes (%) (Auto) 7 % (24-48) Monocytes (%) (Auto) 6 % (0-9) Eosinophils (%) (Auto) 2 % (0-3) Basophils (%) (Auto) 0 % (0-3) Neutrophils # (Auto) 8.0 x10^3/uL (1.8-7.7) Lymphocytes # (Auto) 0.6 x10^3/uL (1.0-4.8) Monocytes # (Auto) 0.6 x10^3/uL (0.0-1.1) Eosinophils # (Auto) 0.2 x10^3/uL (0.0-0.7) Basophils # (Auto) 0.0 x10^3/uL (0.0-0.2) Sodium Level 136 mmol/L (136-145) Potassium Level 5.2 mmol/L (3.5-5.1) Chloride Level 106 mmol/L (98-107) Carbon Dioxide Level 18 mmol/L (21-32) Anion Gap 12 (6-14) Blood Urea Nitrogen 50 mg/dL (8-26) Creatinine 2.3 mg/dL (0.7-1.3) Estimated GFR (Cockcroft-Gault) 32.8 Glucose Level 142 mg/dL (70-99) Calcium Level 8.0 mg/dL (8.5-10.1) Phosphorus Level 3.9 mg/dL (2.6-4.7) Albumin 1.7 g/dL (3.4-5.0) O2 Saturation 97 % (92-99) Arterial Blood pH 7.29 (7.35-7.45) Arterial Blood pCO2 at Patient Temp 31 mmHg (35-46) Arterial Blood pO2 at Patient Temp 97 mmHg (65-108) Arterial Blood HCO3 15 mmol/L (21-28) Arterial Blood Base Excess -11 mmol/L (-3-3) FiO2 65 Vancomycin Level Trough 11.2 mcg/mL (10.0-20.0) Vancomycin Last Dose Date 12/14/19 Vancomycin Last Dose Time 0900 Glucose (Fingerstick) 84 mg/dL (70-99) Test 12/17/19 00:21 12/17/19 04:45 Glucose (Fingerstick) 126 mg/dL (70-99) White Blood Count 8.6 x10^3/uL (4.0-11.0) Red Blood Count 2.81 x10^6/uL (4.30-5.70) Hemoglobin 8.3 g/dL (13.0-17.5) Hematocrit 26.1 % (39.0-53.0) Mean Corpuscular Volume 93 fL (79-100) Mean Corpuscular Hemoglobin 30 pg (25-35) Mean Corpuscular Hemoglobin Concent 32 g/dL (31-37) Red Cell Distribution Width 17.3 % (11.5-14.5) Platelet Count 106 x10^3/uL (140-400) Neutrophils (%) (Auto) 89 % (31-73) Lymphocytes (%) (Auto) 4 % (24-48) Monocytes (%) (Auto) 5 % (0-9) Eosinophils (%) (Auto) 2 % (0-3) Basophils (%) (Auto) 0 % (0-3) Neutrophils # (Auto) 7.6 x10^3/uL (1.8-7.7) Lymphocytes # (Auto) 0.4 x10^3/uL (1.0-4.8) Monocytes # (Auto) 0.4 x10^3/uL (0.0-1.1) Eosinophils # (Auto) 0.1 x10^3/uL (0.0-0.7) Basophils # (Auto) 0.0 x10^3/uL (0.0-0.2) Sodium Level 137 mmol/L (136-145) Potassium Level 4.2 mmol/L (3.5-5.1) Chloride Level 109 mmol/L (98-107) Carbon Dioxide Level 15 mmol/L (21-32) Anion Gap 13 (6-14) Blood Urea Nitrogen 46 mg/dL (8-26) Creatinine 2.2 mg/dL (0.7-1.3) Estimated GFR (Cockcroft-Gault) 34.5 Glucose Level 150 mg/dL (70-99) Calcium Level 6.8 mg/dL (8.5-10.1) Phosphorus Level 3.4 mg/dL (2.6-4.7) Magnesium Level 2.4 mg/dL (1.8-2.4) Albumin 1.3 g/dL (3.4-5.0) Triglycerides Level 100 mg/dL (0-150) Laboratory Tests Test 12/16/19 10:30 12/16/19 16:38 12/17/19 00:21 12/17/19 04:45 Vancomycin Level Trough 11.2 mcg/mL (10.0-20.0) Vancomycin Last Dose Date 12/14/19 Vancomycin Last Dose Time 0900 Glucose (Fingerstick) 84 mg/dL (70-99) 126 mg/dL (70-99) White Blood Count 8.6 x10^3/uL (4.0-11.0) Red Blood Count 2.81 x10^6/uL (4.30-5.70) Hemoglobin 8.3 g/dL (13.0-17.5) Hematocrit 26.1 % (39.0-53.0) Mean Corpuscular Volume 93 fL (79-100) Mean Corpuscular Hemoglobin 30 pg (25-35) Mean Corpuscular Hemoglobin Concent 32 g/dL (31-37) Red Cell Distribution Width 17.3 % (11.5-14.5) Platelet Count 106 x10^3/uL (140-400) Neutrophils (%) (Auto) 89 % (31-73) Lymphocytes (%) (Auto) 4 % (24-48) Monocytes (%) (Auto) 5 % (0-9) Eosinophils (%) (Auto) 2 % (0-3) Basophils (%) (Auto) 0 % (0-3) Neutrophils # (Auto) 7.6 x10^3/uL (1.8-7.7) Lymphocytes # (Auto) 0.4 x10^3/uL (1.0-4.8) Monocytes # (Auto) 0.4 x10^3/uL (0.0-1.1) Eosinophils # (Auto) 0.1 x10^3/uL (0.0-0.7) Basophils # (Auto) 0.0 x10^3/uL (0.0-0.2) Sodium Level 137 mmol/L (136-145) Potassium Level 4.2 mmol/L (3.5-5.1) Chloride Level 109 mmol/L (98-107) Carbon Dioxide Level 15 mmol/L (21-32) Anion Gap 13 (6-14) Blood Urea Nitrogen 46 mg/dL (8-26) Creatinine 2.2 mg/dL (0.7-1.3) Estimated GFR (Cockcroft-Gault) 34.5 Glucose Level 150 mg/dL (70-99) Calcium Level 6.8 mg/dL (8.5-10.1) Phosphorus Level 3.4 mg/dL (2.6-4.7) Magnesium Level 2.4 mg/dL (1.8-2.4) Albumin 1.3 g/dL (3.4-5.0) Triglycerides Level 100 mg/dL (0-150) Medications Active Scripts Medications Dose Route/Sig Max Daily Dose Days Date Category Dose Instructions Warfarin Sodium 3 Mg Tablet 1 Tab PO 1X 09/28/17 Reported Fluticasone Propionate Nasal Kendall (Fluticasone Propionate) 16 Gm Kendall.susp 2 Kendall NS DAILY 09/25/17 Reported last dos this am next dose tomorrow am (monday) Lubricant Eye Drops (Propylene Glycol) 10 Ml Drops 10 Ml OP [id number] 09/25/17 Reported last dose after lunch next dose with supper/ bedtime Lubricant Eye Drops (Carboxymethylcellulose Sodium) 1 Each Droperette 1 Each OP HS 09/25/17 Reported last dose last evening next dosetonight provided his own Glipizide 5 Mg Tablet 5 Mg PO [id number] 07/12/16 Reported last dose last night next dose tonight with supper Glipizide 5 Mg Tablet 2.5 Mg PO DAILY 07/12/16 Reported last dose this am (next dose tomorrow am monday) Loratadine 10 Mg Tablet 10 Mg PO 06/27/16 Reported last dose this am next dose tomorrow am(monday) Omeprazole 20 Mg Capsule.dr 20 Mg PO DAILY 06/27/16 Reported last dose this am next dose tomorrow am (monday) Ferrous Sulfate 325 Mg Tablet 1 Tab PO DAILY 06/27/16 Reported last dose this am next dose tonight Aspir 81 (Aspirin) 81 Mg Tablet.dr 81 Mg PO DAILY 06/27/16 Reported Amlodipine-Benazepril 5-10 Mg (Amlodipine Besylate/Benazepril) 1 Each Capsule 1 Cap PO DAILY 06/27/16 Reported last dos this am next dose tomorrow am (monday) Tamsulosin Hcl 0.4 Mg Cap.er.24h 1 Cap PO DAILY 10/06/14 Reported last dose this am next dose tomorrow am (monday) Simvastatin 20 Mg Tablet 1 Tab PO QHS 10/06/14 Reported last dose last evening next dose tonight Hydrochlorothiazide Tablet (Hydrochlorothiazide) 25 Mg Tablet 1 Tab PO DAILY 10/06/14 Reported last dos this am next dose tomorrow am (monday) Allopurinol 100 Mg Tablet 1 Tab PO DAILY 10/06/14 Reported last dose this am next dose tomorrow on monday Levothyroxine Sodium 50 Mcg Tablet 1 Tab PO DAILY 10/06/14 Reported last dose this am next dose tomorrow am (monday) Comments CXR 12/15 mild interstitial infiltrates bilateral today's P Impression . This is an 84-year-old, who presents with comorbidities including debility, diabetes, and chronic kidney disease on top of acute kidney disease with abnormal chest x-ray/ hypoxia/ RF 1. Acute respiratory failure secondary ARDS 2. Pneumonia, COVID-19 positive test (U07.1, COVID-19) with Acute Pneumonia (J12.89, Other viral pneumonia) (If respiratory failure or sepsis present, add as separate assessment) 3. diabetes 4. Abnormal chest x-ray, suspect superimposed bacterial pneumonia (gram-negative gram-positive), underlying viral pneumonia 5. Septic shock, off levoped 6. Protein malnutrition present upon admission 7. Acute kidney injury 8. Metabolic acidosis due to BIA 9. Severe PCM Labs reviewed, chest x-ray reviewed Plan . Continue PC mode,high FIO2, PEEP 8. Follow ABG and make necessary adjustments . Spoke with nurse, increase sedation, add PRN paralytics paralytic Prone positioning per protocol. Follow CXR and Labs Empiric hydro-hydroxychloroquine, Zithromax Continue vancomycin and Zosyn We will consider Tocilizumab if he continues to worsen, I have checked with pharmacy, will check criteria from corporate DVT GI prophylaxis Nutritional support with tube feeding Will give Amp of Bicarb The above was discussed with RN and RT Total cumulative critical care time of 35 minutes reviewing data, labs, chest x- ray, and managing vent addend: Patient now on 100%FIO2 hypothermic. spoke with aNyeli ( daughter.) explained clinical condition. Rec DNR. They will be allowed to visit this evening. prognosis very poor ADITYA FERREIRA MD Dec 17, 2019 08:45
[2019-12-17] MEDS: FLUTICASONE 50MCG/NASAL SPRAY 16GM BOTTLE. NS SCH (09:00)
[2019-12-17] MEDS: LISINOPRIL 10 MG TABLET PO SCH (09:00)
[2019-12-17] MEDS: amLODIPine BESYLATE 5 MG TABLET PO SCH (09:00)
[2019-12-17] MEDS: TAMSULOSIN 0.4 MG CAP.ER.24H. PO SCH (09:21)
[2019-12-17] MEDS: ASPIRIN ENTERIC COATED 81 MG TABLET.DR. PO SCH (09:21)
[2019-12-17] MEDS: IV NORMAL SALINE 1000ML BAG 1,000 ML IV SCH (09:22)
[2019-12-17] MEDS: CETIRIZINE HCL 10 MG TABLET. PO SCH (09:22)
[2019-12-17] MEDS: ALLOPURINOL 100 MG TABLET. PO SCH (09:22)
[2019-12-17] MEDS: HYDROXYCHLOROQUINE 200 MG TABLET PO SCH ×2 (09:22→22:59)
[2019-12-17] MEDS: FERROUS SULFATE 325 MG TABLET. PO SCH (09:22)
[2019-12-17] MEDS: CARBIDOPA/LEVODOPA 25/100MG TABLET PO SCH ×3 (09:23→22:59)
[2019-12-17] MEDS: CHLORHEXIDINE 0.12% 15 ML MOUTHWASH. MM SCH ×2 (09:23→21:00)
[2019-12-17] MEDS: glipiZIDE 5 MG TABLET PO SCH (09:26)
[2019-12-17] MEDS: MIDAZOLAM HCL 100 MG in IV NORMAL SALINE 100ML 100 ML IV PRN ×3 (09:29→23:01)
[2019-12-17] MEDS: PANTOPRAZOLE IV PUSH 40 MG VIAL. IVP SCH (09:31)
--- NOTE | 2019-12-17 10:09 | RAD ---
EXAM: CHEST 1 VIEW History: Respiratory failure COMPARISON: 12/16/2019 TECHNIQUE: Single portable radiograph of the chest Findings/ impression: The ET tube, feeding tube are unchanged. Patchy bilateral lung airspace opacities minimally improved since prior exam. The costophrenic sulci are clear and well demarcated. Electronically signed by: Buddy Trejo MD (12/17/2019 10:05 AM) [id number]
[2019-12-17 10:41] LABS: BASE EXCESS IS ARTERIAL -11 mmol/L (0-3); HCO3 IS ARTERIAL 15 mmol/L (21-28); PCO2 IS ARTERIAL 32 mmHg (35-45); PH IS ARTERIAL 7.28 (7.35-7.45); PO2 IS ARTERIAL 103 mmHg (75-100); SAT O2 IS ARTERIAL 97 % (95-99); TCO2 IS ARTERIAL 16 mmol/L (21-32)
[2019-12-17] MEDS: AZITHROMYCIN 250 MG in IV NORMAL SALINE 250ML 250 ML IV SCH (11:45)
--- NOTE | 2019-12-17 11:47 | PDOC ---
Renal-Progress Notes Subjective Notes Notes INTUBATED History of Present Illness Hx of present illness STABLE Vitals Vitals Vital Signs Date Time Temp Pulse Resp B/P (MAP) Pulse Ox O2 Delivery O2 Flow Rate FiO2 12/17/19 11:28 100 Ventilator 12/17/19 09:33 26 12/17/19 05:00 80 134/52 (79) 12/17/19 04:00 98.4 98.4 Weight Weight [ ] I.O. Intake and Output Intake and Output 12/17/19 07:00 Intake Total 2298.6 ml Output Total 1235 ml Balance 1063.6 ml IV Total 2298.6 ml Output Urine Total 1235 ml Labs Labs Laboratory Tests Test 12/16/19 16:38 12/17/19 00:21 12/17/19 04:45 12/17/19 09:01 Glucose (Fingerstick) 84 mg/dL (70-99) 126 mg/dL (70-99) White Blood Count 8.6 x10^3/uL (4.0-11.0) Red Blood Count 2.81 x10^6/uL (4.30-5.70) Hemoglobin 8.3 g/dL (13.0-17.5) Hematocrit 26.1 % (39.0-53.0) Mean Corpuscular Volume 93 fL (79-100) Mean Corpuscular Hemoglobin 30 pg (25-35) Mean Corpuscular Hemoglobin Concent 32 g/dL (31-37) Red Cell Distribution Width 17.3 % (11.5-14.5) Platelet Count 106 x10^3/uL (140-400) Neutrophils (%) (Auto) 89 % (31-73) Lymphocytes (%) (Auto) 4 % (24-48) Monocytes (%) (Auto) 5 % (0-9) Eosinophils (%) (Auto) 2 % (0-3) Basophils (%) (Auto) 0 % (0-3) Neutrophils # (Auto) 7.6 x10^3/uL (1.8-7.7) Lymphocytes # (Auto) 0.4 x10^3/uL (1.0-4.8) Monocytes # (Auto) 0.4 x10^3/uL (0.0-1.1) Eosinophils # (Auto) 0.1 x10^3/uL (0.0-0.7) Basophils # (Auto) 0.0 x10^3/uL (0.0-0.2) Sodium Level 137 mmol/L (136-145) Potassium Level 4.2 mmol/L (3.5-5.1) Chloride Level 109 mmol/L (98-107) Carbon Dioxide Level 15 mmol/L (21-32) Anion Gap 13 (6-14) Blood Urea Nitrogen 46 mg/dL (8-26) Creatinine 2.2 mg/dL (0.7-1.3) Estimated GFR (Cockcroft-Gault) 34.5 Glucose Level 150 mg/dL (70-99) Calcium Level 6.8 mg/dL (8.5-10.1) Phosphorus Level 3.4 mg/dL (2.6-4.7) Magnesium Level 2.4 mg/dL (1.8-2.4) Albumin 1.3 g/dL (3.4-5.0) Triglycerides Level 100 mg/dL (0-150) Bedside Arterial pH 7.28 (7.35-7.45) Bedside Arterial pCO2 32 mmHg (35-45) Bedside Arterial pO2 103 mmHg (75-100) Arterial Blood HCO3 15 mmol/L (21-28) Bedside Arterial Blood O2 Sat 97 % (95-99) Bedside FiO2 65.0 Micro Micro Microbiology 12/09/19 Blood Culture - Final, Complete NO GROWTH AFTER 5 DAYS Review of Systems Constitutional: yes: unresponsive, other (ON THE VENT) Physical Exam General Appearance: other (SEDATED) Skin: warm Respiratory: ventilator (Mode:A/C), decreased breath sounds Heart: S1S2 Abdomen: bowel sounds present Genitourinary: bladder flat Extremities: pulses present Neurology: other (SEDATED) Musculoskeletal: Other (SEDATED ON THE VENT) Assessment Assessment IMP BIA-IMPROVING CR OF 3.3 TO 2.2 MET ACIDOSIS CKD STAGE 3 WITH BASELINE CR OF 2.0 ACUTE RESP FAILURE-MEHRDAD PNEUMONIA COVID - 19 SEPSIS PLAN HYDRATION HCO3 GTT PRESSORS NEEDED ANTIBIOTICS HOLD DIURETICS CONT TPN VENT SUPPORT WILL FOLLOW MARGE TRIPATHI MD Dec 17, 2019 11:47
[2019-12-17] MEDS: TPN PER PHARMACY MC PRN (12:21)
[2019-12-17] MEDS: SODIUM BICARBONATE VIAL 50 MEQ in IV 1/2 NORMAL SALINE 1,000 ML IV SCH ×2 (12:41→23:43)
--- NOTE | 2019-12-17 14:16 | PDOC ---
[facility] PROGRESS NOTE Chief Complaint Chief Complaint Covid 19 positive ARDS Respiratory failure requiring intubation and mechanical ventilation Pneumonia Chronic renal failure Debility Weakness Fevers Arthritis, diabetes, back surgery, knee surgery and thyroid surgery. History of Present Illness History of Present Illness [id number] Patient seen and examined in the ICU He remains mechanically ventilated Pressure control 65% I helped the nurses roll him onto his prone position Chart reviewed Discussed with RT [id number] Patient seen and examined in the ICU He remains critically ill and on the vent Sedated with propofol and fentanyl On a levo fed drip In respiratory isolation because of Covid positive testing [id number] Patient seen and examined in the ICU He remains intubated and mechanically ventilated He is on pressure control was 65% FiO2 Has a levo fed drip Sedated with propofol and fentanyl Covid 19 testing is now positive Chart reviewed Discussed with RN He is critically ill [id number] Patient seen and examined in the ICU He is mechanically ventilated then we just switched him over to pressure control 75% FiO2 Cra Officer ordered paralytics as the patient has not interfacing with the vent well Chart reviewed Discussed with RN He is critically ill [id number] Patient seen and examined now transferred to the ICU In respiratory isolation and intubated On 100% oxygen assist-control He is extremely critically ill Chart reviewed Discussed with RN [id number] Patient seen and examined He is still confused and weak Discussed with RN Patient coughed a little bit with some water We are going to get speech therapy eval Also starting some IV PPN Continue in physical therapy occupational therapy and current medications [id number] Patient seen and examined Chart reviewed Discussed with RN He looks a little better today but very weak Suspect he is going to need senior care? [id number] Patient seen and examined Chart reviewed discussed with RN Spoke with his daughter Nayeli Vitals/I&O Vitals/I&O: Vital Signs Date Time Temp Pulse Resp B/P (MAP) Pulse Ox O2 Delivery O2 Flow Rate FiO2 12/17/19 12:00 Mechanical Ventilator 2.0 12/17/19 11:28 100 12/17/19 09:33 26 12/17/19 05:00 80 134/52 (79) 12/17/19 04:00 98.4 98.4 I & O 12/16/19 12/16/19 12/17/19 15:00 23:00 07:00 Intake Total 2298.6 ml Output Total 350 ml 510 ml 375 ml Balance -350 ml -510 ml 1923.6 ml Physical Exam General: Other (bucking the vent, we just ordered some paralytics) Heart: No murmurs, Other (tachycardic at 102 bpm distant S1-S2) Abdomen: Soft Extremities: No clubbing, No cyanosis Skin: No rashes, No breakdown Labs Labs: Laboratory Tests Test 12/16/19 16:38 12/17/19 00:21 12/17/19 04:45 12/17/19 09:01 Glucose (Fingerstick) 84 mg/dL (70-99) 126 mg/dL (70-99) White Blood Count 8.6 x10^3/uL (4.0-11.0) Red Blood Count 2.81 x10^6/uL (4.30-5.70) Hemoglobin 8.3 g/dL (13.0-17.5) Hematocrit 26.1 % (39.0-53.0) Mean Corpuscular Volume 93 fL (79-100) Mean Corpuscular Hemoglobin 30 pg (25-35) Mean Corpuscular Hemoglobin Concent 32 g/dL (31-37) Red Cell Distribution Width 17.3 % (11.5-14.5) Platelet Count 106 x10^3/uL (140-400) Neutrophils (%) (Auto) 89 % (31-73) Lymphocytes (%) (Auto) 4 % (24-48) Monocytes (%) (Auto) 5 % (0-9) Eosinophils (%) (Auto) 2 % (0-3) Basophils (%) (Auto) 0 % (0-3) Neutrophils # (Auto) 7.6 x10^3/uL (1.8-7.7) Lymphocytes # (Auto) 0.4 x10^3/uL (1.0-4.8) Monocytes # (Auto) 0.4 x10^3/uL (0.0-1.1) Eosinophils # (Auto) 0.1 x10^3/uL (0.0-0.7) Basophils # (Auto) 0.0 x10^3/uL (0.0-0.2) Sodium Level 137 mmol/L (136-145) Potassium Level 4.2 mmol/L (3.5-5.1) Chloride Level 109 mmol/L (98-107) Carbon Dioxide Level 15 mmol/L (21-32) Anion Gap 13 (6-14) Blood Urea Nitrogen 46 mg/dL (8-26) Creatinine 2.2 mg/dL (0.7-1.3) Estimated GFR (Cockcroft-Gault) 34.5 Glucose Level 150 mg/dL (70-99) Calcium Level 6.8 mg/dL (8.5-10.1) Phosphorus Level 3.4 mg/dL (2.6-4.7) Magnesium Level 2.4 mg/dL (1.8-2.4) Albumin 1.3 g/dL (3.4-5.0) Triglycerides Level 100 mg/dL (0-150) Bedside Arterial pH 7.28 (7.35-7.45) Bedside Arterial pCO2 32 mmHg (35-45) Bedside Arterial pO2 103 mmHg (75-100) Arterial Blood HCO3 15 mmol/L (21-28) Bedside Arterial Blood O2 Sat 97 % (95-99) Bedside FiO2 65.0 Review of Systems Review of Systems: Unable to obtain Assessment and Plan Assessmemt and Plan Problems Medical Problems: (1) Bilateral pneumonia Status: Acute (2) Fever Status: Acute (3) Hypoglycemia Status: Acute (4) Renal insufficiency Status: Acute (5) Suspected 2019 novel coronavirus infection Status: Acute (6) Weakness Status: Acute Covid 19 positive with severe pneumonia ARDS Fulminant respiratory failure requiring mechanical ventilation Chronic renal failure Debility Weakness Fevers Arthritis, diabetes, back surgery, knee surgery and thyroid surgery. Plan I added vitamin C and zinc Plaquenil azithromycin broad-spectrum antibiotics ICU monitoring Mechanical ventilation (changed him to pressure control and added when necessary paralytics, agree) Await further input from pulmonary and nephrology Beta agonist Trend labs Home meds DVT prophylaxis Full code He remains critically ill Total time 32 minutes Comment Review of Relevant I have reviewed the following items sammie (where applicable) has been applied. Medications: Current Medications Medications (Trade) Dose Ordered Sig/Aga Route PRN Reason Start Time Stop Time Status Last Admin Dose Admin Sodium Acetate 60 meq/Potassium Chloride 20 meq/ Potassium Phosphate 10 mmol/ Magnesium Sulfate 10 meq/Calcium Gluconate 10 meq/ Multivitamins 10 ml/Chromium/ Copper/Manganese/ Seleni/Zn 0.5 ml/ Total Parenteral Nutrition/Amino Acids/Dextrose 1,200 ml @ 50 mls/hr TPN CONT IV 12/16/19 22:00 12/17/19 21:59 12/16/19 22:24 Pantoprazole Sodium (PROTONIX VIAL for IV PUSH) 40 mg DAILYAC IVP 12/17/19 09:00 12/17/19 09:31 Vecuronium [place] (Norcuron Bolus) 6 mg Q4HRS PRN IV VENT ASYNCHRONY 12/17/19 08:45 12/17/19 11:46 Sodium Bicarbonate (Sodium Bicarb Adult 8.4% Syr) 50 meq 1X ONCE IV 12/17/19 08:45 12/17/19 08:47 DC 12/17/19 09:31 Sodium Bicarbonate 50 meq/Sodium Chloride 1,050 ml @ 100 mls/hr [id number] IV 12/17/19 12:30 12/17/19 12:41 EDIE CRISTOBAL III DO Dec 17, 2019 14:16
[2019-12-17] MEDS: ZINC SULFATE 220 MG CAPSULE. PO SCH (15:24)
[2019-12-17] MEDS: ASCORBIC ACID 500 MG TABLET PO SCH (15:24)
[2019-12-17] MEDS: ENOXAPARIN 30 MG/0.3 ML SYRINGE. SQ SCH (15:26)
[2019-12-17] MEDS ORDERED: [UNRECOGNIZED DRUG - OTHER] IV SCH ×10 (22:00)
[2019-12-17] MEDS ORDERED: DEXTROSE 70% IV SCH ×10 (22:00)
[2019-12-17] MEDS ORDERED: AMINO ACID IV SCH ×10 (22:00)
[2019-12-17] MEDS ORDERED: TOTAL PARENTERAL NUTRITION IV SCH ×10 (22:00)
[2019-12-17] MEDS: VANCOMYCIN 1 GM in IV NORMAL SALINE 250ML 250 ML IV SCH (23:02)
[2019-12-18] VITALS (23 sets, daily range): BP systolic 101–133; BP diastolic 43–72
[2019-12-18] MEDS: PIPERACILLIN/TAZOBACTAM 3.375 GM in IV NORMAL SALINE 50ML 50 ML IV SCH ×3 (05:16→17:59)
[2019-12-18 05:26] LABS: BASO % 0 % (0-3); EOS # 0.1 x10^3/uL (0.0-0.7); EOS % 1 % (0-3); HEMOGLOBIN 8.4 g/dL (13.0-17.5); LYMPH # 0.2 x10^3/uL (1.0-4.8); LYMPH % 2 % (24-48); MEAN CORPUSCULAR HEMOGLOBIN 30 pg (25-35); MEAN CORPUSCULAR HGB CONC 32 g/dL (31-37); MEAN CORPUSCULAR VOLUME 92 fL (79-100); MONO # 0.6 x10^3/uL (0.0-1.1); MONO % 6 % (0-9); NEUT # 8.1 x10^3/uL (1.8-7.7); NEUT % 90 % (31-73); PLATELET COUNT 110 x10^3/uL (140-400); RED BLOOD COUNT 2.83 x10^6/uL (4.30-5.70); RED CELL DISTRIBUTION WIDTH 17.1 % (11.5-14.5)
[2019-12-18 05:56] LABS: CALCIUM 7.6 mg/dL (8.5-10.1); CREATININE 3.1 mg/dL (0.7-1.3); GFR 23.2; MAGNESIUM 2.8 mg/dL (1.8-2.4); PHOSPHORUS 3.7 mg/dL (2.6-4.7); POTASSIUM 4.8 mmol/L (3.5-5.1)
[2019-12-18 06:41] LABS: % BANDS 10 % (0-9); % EOS 1 % (0-5); % LYMPHS 1 % (24-48); % MONOS 7 % (0-10); % SEGS 81 % (35-66); PLT ESTIMATE DECREASED (ADEQUATE)
[2019-12-18 06:42] LABS: ANISOCYTOSIS SLIGHT; OVALOCYTES FEW; POLYCHROMASIA SLIGHT
[2019-12-18] MEDS: glipiZIDE 5 MG TABLET PO SCH (07:30)
[2019-12-18] MEDS: MIDAZOLAM HCL 100 MG in IV NORMAL SALINE 100ML 100 ML IV PRN ×2 (07:32→16:10)
[2019-12-18] MEDS: FLUTICASONE 50MCG/NASAL SPRAY 16GM BOTTLE. NS SCH (09:00)
[2019-12-18] MEDS: CHLORHEXIDINE 0.12% 15 ML MOUTHWASH. MM SCH ×2 (09:00→22:23)
[2019-12-18] MEDS: TAMSULOSIN 0.4 MG CAP.ER.24H. PO SCH (09:00)
--- NOTE | 2019-12-18 09:02 | PDOC ---
PULMONARY PROGRESS NOTES Subjective Pt intubated/ sedated on PC mode sedated Vitals Vital Signs Date Time Temp Pulse Resp B/P (MAP) Pulse Ox O2 Delivery O2 Flow Rate FiO2 12/18/19 08:21 100 Ventilator 12/18/19 07:35 24 12/18/19 06:40 2.0 12/18/19 06:00 52 101/50 (67) 12/18/19 04:00 97.6 97.6 Comments Visual exam done intubated/ sedated , no obvious JVD, no rash, trace edema Abdomen: Soft Extremities: Other (trace edema, no rash) Skin: Warm Labs Laboratory Tests Test 12/16/19 10:30 12/16/19 16:38 12/17/19 00:21 12/17/19 04:45 Vancomycin Level Trough 11.2 mcg/mL (10.0-20.0) Vancomycin Last Dose Date 12/14/19 Vancomycin Last Dose Time 0900 Glucose (Fingerstick) 84 mg/dL (70-99) 126 mg/dL (70-99) White Blood Count 8.6 x10^3/uL (4.0-11.0) Red Blood Count 2.81 x10^6/uL (4.30-5.70) Hemoglobin 8.3 g/dL (13.0-17.5) Hematocrit 26.1 % (39.0-53.0) Mean Corpuscular Volume 93 fL (79-100) Mean Corpuscular Hemoglobin 30 pg (25-35) Mean Corpuscular Hemoglobin Concent 32 g/dL (31-37) Red Cell Distribution Width 17.3 % (11.5-14.5) Platelet Count 106 x10^3/uL (140-400) Neutrophils (%) (Auto) 89 % (31-73) Lymphocytes (%) (Auto) 4 % (24-48) Monocytes (%) (Auto) 5 % (0-9) Eosinophils (%) (Auto) 2 % (0-3) Basophils (%) (Auto) 0 % (0-3) Neutrophils # (Auto) 7.6 x10^3/uL (1.8-7.7) Lymphocytes # (Auto) 0.4 x10^3/uL (1.0-4.8) Monocytes # (Auto) 0.4 x10^3/uL (0.0-1.1) Eosinophils # (Auto) 0.1 x10^3/uL (0.0-0.7) Basophils # (Auto) 0.0 x10^3/uL (0.0-0.2) Sodium Level 137 mmol/L (136-145) Potassium Level 4.2 mmol/L (3.5-5.1) Chloride Level 109 mmol/L (98-107) Carbon Dioxide Level 15 mmol/L (21-32) Anion Gap 13 (6-14) Blood Urea Nitrogen 46 mg/dL (8-26) Creatinine 2.2 mg/dL (0.7-1.3) Estimated GFR (Cockcroft-Gault) 34.5 Glucose Level 150 mg/dL (70-99) Calcium Level 6.8 mg/dL (8.5-10.1) Phosphorus Level 3.4 mg/dL (2.6-4.7) Magnesium Level 2.4 mg/dL (1.8-2.4) Albumin 1.3 g/dL (3.4-5.0) Triglycerides Level 100 mg/dL (0-150) Test 12/17/19 09:01 12/17/19 17:28 12/18/19 05:05 Bedside Arterial pH 7.28 (7.35-7.45) Bedside Arterial pCO2 32 mmHg (35-45) Bedside Arterial pO2 103 mmHg (75-100) Arterial Blood HCO3 15 mmol/L (21-28) Bedside Arterial Blood O2 Sat 97 % (95-99) Bedside FiO2 65.0 Glucose (Fingerstick) 228 mg/dL (70-99) White Blood Count 9.0 x10^3/uL (4.0-11.0) Red Blood Count 2.83 x10^6/uL (4.30-5.70) Hemoglobin 8.4 g/dL (13.0-17.5) Hematocrit 26.0 % (39.0-53.0) Mean Corpuscular Volume 92 fL (79-100) Mean Corpuscular Hemoglobin 30 pg (25-35) Mean Corpuscular Hemoglobin Concent 32 g/dL (31-37) Red Cell Distribution Width 17.1 % (11.5-14.5) Platelet Count 110 x10^3/uL (140-400) Neutrophils (%) (Auto) 90 % (31-73) Lymphocytes (%) (Auto) 2 % (24-48) Monocytes (%) (Auto) 6 % (0-9) Eosinophils (%) (Auto) 1 % (0-3) Basophils (%) (Auto) 0 % (0-3) Neutrophils # (Auto) 8.1 x10^3/uL (1.8-7.7) Lymphocytes # (Auto) 0.2 x10^3/uL (1.0-4.8) Monocytes # (Auto) 0.6 x10^3/uL (0.0-1.1) Eosinophils # (Auto) 0.1 x10^3/uL (0.0-0.7) Basophils # (Auto) 0.0 x10^3/uL (0.0-0.2) Segmented Neutrophils % 81 % (35-66) Band Neutrophils % 10 % (0-9) Lymphocytes % 1 % (24-48) Monocytes % 7 % (0-10) Eosinophils % 1 % (0-5) Platelet Estimate Decreased (ADEQUATE) Polychromasia Slight Anisocytosis Slight Ovalocytes Few Sodium Level 142 mmol/L (136-145) Potassium Level 4.8 mmol/L (3.5-5.1) Chloride Level 110 mmol/L (98-107) Carbon Dioxide Level 19 mmol/L (21-32) Anion Gap 13 (6-14) Blood Urea Nitrogen 60 mg/dL (8-26) Creatinine 3.1 mg/dL (0.7-1.3) Estimated GFR (Cockcroft-Gault) 23.2 Glucose Level 203 mg/dL (70-99) Calcium Level 7.6 mg/dL (8.5-10.1) Phosphorus Level 3.7 mg/dL (2.6-4.7) Magnesium Level 2.8 mg/dL (1.8-2.4) Laboratory Tests Test 12/17/19 09:01 12/17/19 17:28 12/18/19 05:05 Bedside Arterial pH 7.28 (7.35-7.45) Bedside Arterial pCO2 32 mmHg (35-45) Bedside Arterial pO2 103 mmHg (75-100) Arterial Blood HCO3 15 mmol/L (21-28) Bedside Arterial Blood O2 Sat 97 % (95-99) Bedside FiO2 65.0 Glucose (Fingerstick) 228 mg/dL (70-99) White Blood Count 9.0 x10^3/uL (4.0-11.0) Red Blood Count 2.83 x10^6/uL (4.30-5.70) Hemoglobin 8.4 g/dL (13.0-17.5) Hematocrit 26.0 % (39.0-53.0) Mean Corpuscular Volume 92 fL (79-100) Mean Corpuscular Hemoglobin 30 pg (25-35) Mean Corpuscular Hemoglobin Concent 32 g/dL (31-37) Red Cell Distribution Width 17.1 % (11.5-14.5) Platelet Count 110 x10^3/uL (140-400) Neutrophils (%) (Auto) 90 % (31-73) Lymphocytes (%) (Auto) 2 % (24-48) Monocytes (%) (Auto) 6 % (0-9) Eosinophils (%) (Auto) 1 % (0-3) Basophils (%) (Auto) 0 % (0-3) Neutrophils # (Auto) 8.1 x10^3/uL (1.8-7.7) Lymphocytes # (Auto) 0.2 x10^3/uL (1.0-4.8) Monocytes # (Auto) 0.6 x10^3/uL (0.0-1.1) Eosinophils # (Auto) 0.1 x10^3/uL (0.0-0.7) Basophils # (Auto) 0.0 x10^3/uL (0.0-0.2) Segmented Neutrophils % 81 % (35-66) Band Neutrophils % 10 % (0-9) Lymphocytes % 1 % (24-48) Monocytes % 7 % (0-10) Eosinophils % 1 % (0-5) Platelet Estimate Decreased (ADEQUATE) Polychromasia Slight Anisocytosis Slight Ovalocytes Few Sodium Level 142 mmol/L (136-145) Potassium Level 4.8 mmol/L (3.5-5.1) Chloride Level 110 mmol/L (98-107) Carbon Dioxide Level 19 mmol/L (21-32) Anion Gap 13 (6-14) Blood Urea Nitrogen 60 mg/dL (8-26) Creatinine 3.1 mg/dL (0.7-1.3) Estimated GFR (Cockcroft-Gault) 23.2 Glucose Level 203 mg/dL (70-99) Calcium Level 7.6 mg/dL (8.5-10.1) Phosphorus Level 3.7 mg/dL (2.6-4.7) Magnesium Level 2.8 mg/dL (1.8-2.4) Medications Active Scripts Medications Dose Route/Sig Max Daily Dose Days Date Category Dose Instructions Warfarin Sodium 3 Mg Tablet 1 Tab PO 1X 09/28/17 Reported Fluticasone Propionate Nasal [place] (Fluticasone Propionate) 16 Gm [place].susp 2 [place] NS DAILY 09/25/17 Reported last dos this am next dose tomorrow am (monday) Lubricant Eye Drops (Propylene Glycol) 10 Ml Drops 10 Ml OP [id number] 09/25/17 Reported last dose after lunch next dose with supper/ bedtime Lubricant Eye Drops (Carboxymethylcellulose Sodium) 1 Each [place] 1 Each OP HS 09/25/17 Reported last dose last evening next dosetonight provided his own Glipizide 5 Mg Tablet 5 Mg PO [id number] 07/12/16 Reported last dose last night next dose tonight with supper Glipizide 5 Mg Tablet 2.5 Mg PO DAILY 07/12/16 Reported last dose this am (next dose tomorrow am monday) Loratadine 10 Mg Tablet 10 Mg PO 06/27/16 Reported last dose this am next dose tomorrow am(monday) Omeprazole 20 Mg Capsule.dr 20 Mg PO DAILY 06/27/16 Reported last dose this am next dose tomorrow am (monday) Ferrous Sulfate 325 Mg Tablet 1 Tab PO DAILY 06/27/16 Reported last dose this am next dose tonight Aspir 81 (Aspirin) 81 Mg Tablet.dr 81 Mg PO DAILY 06/27/16 Reported Amlodipine-Benazepril 5-10 Mg (Amlodipine Besylate/Benazepril) 1 Each Capsule 1 Cap PO DAILY 06/27/16 Reported last dos this am next dose tomorrow am (monday) Tamsulosin Hcl 0.4 Mg Cap.er.24h 1 Cap PO DAILY 10/06/14 Reported last dose this am next dose tomorrow am (monday) Simvastatin 20 Mg Tablet 1 Tab PO QHS 10/06/14 Reported last dose last evening next dose tonight Hydrochlorothiazide Tablet (Hydrochlorothiazide) 25 Mg Tablet 1 Tab PO DAILY 10/06/14 Reported last dos this am next dose tomorrow am (monday) Allopurinol 100 Mg Tablet 1 Tab PO DAILY 10/06/14 Reported last dose this am next dose tomorrow on monday Levothyroxine Sodium 50 Mcg Tablet 1 Tab PO DAILY 10/06/14 Reported last dose this am next dose tomorrow am (monday) Comments CXR 12/16 mild interstitial infiltrates bilateral Impression . This is an 84-year-old, who presents with comorbidities including debility, diabetes, and chronic kidney disease on top of acute kidney disease with abnormal chest x-ray/ hypoxia/ RF 1. Acute respiratory failure secondary ARDS 2. Pneumonia, COVID-19 positive test (U07.1, COVID-19) with Acute Pneumonia (J12.89, Other viral pneumonia) (If respiratory failure or sepsis present, add as separate assessment) 3. diabetes 4. Abnormal chest x-ray, suspect superimposed bacterial pneumonia (gram-negative gram-positive), underlying viral pneumonia 5. Septic shock, off levoped 6. Protein malnutrition present upon admission 7. Acute kidney injury 8. Metabolic acidosis due to BIA 9. Severe PCM Labs reviewed, chest x-ray reviewed Plan . Continue PC mode,high FIO2, PEEP 8. Follow ABG and make necessary adjustments . PRN paralytics paralytic Prone positioning per protocol. Follow CXR and Labs Empiric hydro-hydroxychloroquine, Zithromax Continue vancomycin and Zosyn We will consider Tocilizumab if he continues to worsen, DVT GI prophylaxis Nutritional support with tube feeding worsening renal function, will try IVF The above was discussed with RN and RT Total cumulative critical care time of 30 minutes reviewing data, labs, chest x- ray, and managing vent spoke with Nayeli ( daughter.) explained clinical condition. Rec DNR. she agrees prognosis very poor ADITYA FERREIRA MD Dec 18, 2019 09:02
[2019-12-18] MEDS ORDERED: METOCLOPRAMIDE HCL 10 MG/2 ML VIAL. IVP PRN ×2 (09:15)
[2019-12-18] MEDS ORDERED: IV NORMAL SALINE 500ML BAG 500 ML IV ONE (09:15)
[2019-12-18] MEDS ORDERED: ONDANSETRON PF 4 MG/2 ML VIAL. IVP PRN (09:15)
[2019-12-18 09:48] LABS: BASE EXCESS ABG -8 mmol/L (-3-3); HCO3 ABG 18 mmol/L (21-28); PCO2 ABG 37 mmHg (35-46); PO2 ABG 73 mmHg (65-108); SAT O2 ABG 93 % (92-99)
[2019-12-18 09:50] LABS: FIO2 ABG 60
[2019-12-18] MEDS: PANTOPRAZOLE IV PUSH 40 MG VIAL. IVP SCH (09:54)
[2019-12-18] MEDS: TPN PER PHARMACY MC PRN (09:56)
[2019-12-18] MEDS: CARBIDOPA/LEVODOPA 25/100MG TABLET PO SCH ×3 (09:56→22:23)
[2019-12-18] MEDS: ASCORBIC ACID 500 MG TABLET PO SCH (09:57)
[2019-12-18] MEDS: FERROUS SULFATE 325 MG TABLET. PO SCH (09:57)
[2019-12-18] MEDS: ASPIRIN ENTERIC COATED 81 MG TABLET.DR. PO SCH (09:57)
[2019-12-18] MEDS: CETIRIZINE HCL 10 MG TABLET. PO SCH (09:57)
[2019-12-18] MEDS: LEVOTHYROXINE 50 MCG TABLET PO SCH (09:57)
[2019-12-18] MEDS: ALLOPURINOL 100 MG TABLET. PO SCH (09:57)
[2019-12-18] MEDS: LISINOPRIL 10 MG TABLET PO SCH (10:03)
[2019-12-18] MEDS: ZINC SULFATE 220 MG CAPSULE. PO SCH (10:03)
[2019-12-18] MEDS: amLODIPine BESYLATE 5 MG TABLET PO SCH (10:04)
[2019-12-18] MEDS: HYDROXYCHLOROQUINE 200 MG TABLET PO SCH ×2 (10:24→22:23)
[2019-12-18] MEDS: ENOXAPARIN 30 MG/0.3 ML SYRINGE. SQ SCH (10:25)
--- NOTE | 2019-12-18 10:31 | RAD ---
Chest AP portable at 0901: Reason for examination: Respiratory failure. Comparison is made to previous studies dated 12/17/2019 and 12/16/2019. Endotracheal tube, left PICC line and NG tube remain present. Heart and mediastinum are unchanged. Lung sarabia continue to show presence of diffuse hazy lung opacities which show no interval improvement. There is slight blunting at the costophrenic angles which may reflect some small pleural effusions. No acute bony abnormalities are present. IMPRESSION: Continued presence of diffuse hazy opacities bilaterally without significant interval change. Slight blunting at the costophrenic angles bilaterally which may reflect small pleural effusions. Electronically signed by: Grace Meyer MD (12/18/2019 10:28 AM) [id number]
[2019-12-18] MEDS: SODIUM BICARBONATE VIAL 50 MEQ in IV 1/2 NORMAL SALINE 1,000 ML IV SCH ×2 (10:44→22:24)
[2019-12-18] MEDS: VANCOMYCIN PER PHARMACY MC PRN (10:49)
--- NOTE | 2019-12-18 11:01 | PDOC ---
PROGRESS NOTES Chief Complaint Chief Complaint Covid 19 positive ARDS Respiratory failure requiring intubation and mechanical ventilation Normal anion gap acidosis Hypocalcemia Severe protein calorie malnutrition Normocytic anemia Pneumonia CKD stage 4 Debility Weakness Fevers Arthritis, diabetes, back surgery, knee surgery and thyroid surgery. Plan; Patient receiving vancomycin plaquenil and azithromycin continue supportive measures vent management as per critical housekeeper caregiver discussed discontinuing shoshana inhibitor in light of his renal dysfunction with nephrology merchandising consultant, recommendations greatly appreciated prognosis guarded DVT prohpylaxis: History of Present Illness History of Present Illness [id number] Patient seen and examined in the ICU He remains mechanically ventilated Pressure control 65% I helped the nurses roll him onto his prone position Chart reviewed Discussed with RT [id number] Patient seen and examined in the ICU He remains critically ill and on the vent Sedated with propofol and fentanyl On a levo fed drip In respiratory isolation because of Covid positive testing [id number] Patient seen and examined in the ICU He remains intubated and mechanically ventilated He is on pressure control was 65% FiO2 Has a levo fed drip Sedated with propofol and fentanyl Covid 19 testing is now positive Chart reviewed Discussed with RN He is critically ill [id number] Patient seen and examined in the ICU He is mechanically ventilated then we just switched him over to pressure control 75% FiO2 Product Evangelist ordered paralytics as the patient has not interfacing with the vent well Chart reviewed Discussed with RN He is critically ill [id number] Patient seen and examined now transferred to the ICU In respiratory isolation and intubated On 100% oxygen assist-control He is extremely critically ill Chart reviewed Discussed with RN [id number] Patient seen and examined He is still confused and weak Discussed with RN Patient coughed a little bit with some water We are going to get speech therapy eval Also starting some IV PPN Continue in physical therapy occupational therapy and current medications [id number] Patient seen and examined Chart reviewed Discussed with RN He looks a little better today but very weak Suspect he is going to need mcc? [id number] Patient seen and examined Chart reviewed discussed with RN Spoke with his daughter Nayeli Vitals Vitals Vital Signs Date Time Temp Pulse Resp B/P (MAP) Pulse Ox O2 Delivery O2 Flow Rate FiO2 12/18/19 10:04 60 107/60 12/18/19 08:21 100 Ventilator 12/18/19 07:35 24 12/18/19 06:40 2.0 12/18/19 04:00 97.6 97.6 Physical Exam General: Other (bucking the vent, we just ordered some paralytics) Heart: No murmurs, Other (tachycardic at 102 bpm distant S1-S2) Lungs: Other (coarse breath sounds) Abdomen: Soft Extremities: No clubbing, No cyanosis Skin: No rashes, No breakdown Labs LABS Laboratory Tests Test 12/17/19 17:28 12/18/19 05:05 12/18/19 09:45 Glucose (Fingerstick) 228 mg/dL (70-99) White Blood Count 9.0 x10^3/uL (4.0-11.0) Red Blood Count 2.83 x10^6/uL (4.30-5.70) Hemoglobin 8.4 g/dL (13.0-17.5) Hematocrit 26.0 % (39.0-53.0) Mean Corpuscular Volume 92 fL (79-100) Mean Corpuscular Hemoglobin 30 pg (25-35) Mean Corpuscular Hemoglobin Concent 32 g/dL (31-37) Red Cell Distribution Width 17.1 % (11.5-14.5) Platelet Count 110 x10^3/uL (140-400) Neutrophils (%) (Auto) 90 % (31-73) Lymphocytes (%) (Auto) 2 % (24-48) Monocytes (%) (Auto) 6 % (0-9) Eosinophils (%) (Auto) 1 % (0-3) Basophils (%) (Auto) 0 % (0-3) Neutrophils # (Auto) 8.1 x10^3/uL (1.8-7.7) Lymphocytes # (Auto) 0.2 x10^3/uL (1.0-4.8) Monocytes # (Auto) 0.6 x10^3/uL (0.0-1.1) Eosinophils # (Auto) 0.1 x10^3/uL (0.0-0.7) Basophils # (Auto) 0.0 x10^3/uL (0.0-0.2) Segmented Neutrophils % 81 % (35-66) Band Neutrophils % 10 % (0-9) Lymphocytes % 1 % (24-48) Monocytes % 7 % (0-10) Eosinophils % 1 % (0-5) Platelet Estimate Decreased (ADEQUATE) Polychromasia Slight Anisocytosis Slight Ovalocytes Few Sodium Level 142 mmol/L (136-145) Potassium Level 4.8 mmol/L (3.5-5.1) Chloride Level 110 mmol/L (98-107) Carbon Dioxide Level 19 mmol/L (21-32) Anion Gap 13 (6-14) Blood Urea Nitrogen 60 mg/dL (8-26) Creatinine 3.1 mg/dL (0.7-1.3) Estimated GFR (Cockcroft-Gault) 23.2 Glucose Level 203 mg/dL (70-99) Calcium Level 7.6 mg/dL (8.5-10.1) Phosphorus Level 3.7 mg/dL (2.6-4.7) Magnesium Level 2.8 mg/dL (1.8-2.4) O2 Saturation 93 % (92-99) Arterial Blood pH 7.31 (7.35-7.45) Arterial Blood pCO2 at Patient Temp 37 mmHg (35-46) Arterial Blood pO2 at Patient Temp 73 mmHg (65-108) Arterial Blood HCO3 18 mmol/L (21-28) Arterial Blood Base Excess -8 mmol/L (-3-3) FiO2 60 Assessment and Plan Assessmemt and Plan Problems Medical Problems: (1) Bilateral pneumonia Status: Acute (2) Fever Status: Acute (3) Hypoglycemia Status: Acute (4) Renal insufficiency Status: Acute (5) Suspected 2019 novel coronavirus infection Status: Acute (6) Weakness Status: Acute Comment Review of Relevant I have reviewed the following items sammie (where applicable) has been applied. Labs Laboratory Tests Test 12/16/19 16:38 12/17/19 00:21 12/17/19 04:45 12/17/19 09:01 Glucose (Fingerstick) 84 mg/dL (70-99) 126 mg/dL (70-99) White Blood Count 8.6 x10^3/uL (4.0-11.0) Red Blood Count 2.81 x10^6/uL (4.30-5.70) Hemoglobin 8.3 g/dL (13.0-17.5) Hematocrit 26.1 % (39.0-53.0) Mean Corpuscular Volume 93 fL (79-100) Mean Corpuscular Hemoglobin 30 pg (25-35) Mean Corpuscular Hemoglobin Concent 32 g/dL (31-37) Red Cell Distribution Width 17.3 % (11.5-14.5) Platelet Count 106 x10^3/uL (140-400) Neutrophils (%) (Auto) 89 % (31-73) Lymphocytes (%) (Auto) 4 % (24-48) Monocytes (%) (Auto) 5 % (0-9) Eosinophils (%) (Auto) 2 % (0-3) Basophils (%) (Auto) 0 % (0-3) Neutrophils # (Auto) 7.6 x10^3/uL (1.8-7.7) Lymphocytes # (Auto) 0.4 x10^3/uL (1.0-4.8) Monocytes # (Auto) 0.4 x10^3/uL (0.0-1.1) Eosinophils # (Auto) 0.1 x10^3/uL (0.0-0.7) Basophils # (Auto) 0.0 x10^3/uL (0.0-0.2) Sodium Level 137 mmol/L (136-145) Potassium Level 4.2 mmol/L (3.5-5.1) Chloride Level 109 mmol/L (98-107) Carbon Dioxide Level 15 mmol/L (21-32) Anion Gap 13 (6-14) Blood Urea Nitrogen 46 mg/dL (8-26) Creatinine 2.2 mg/dL (0.7-1.3) Estimated GFR (Cockcroft-Gault) 34.5 Glucose Level 150 mg/dL (70-99) Calcium Level 6.8 mg/dL (8.5-10.1) Phosphorus Level 3.4 mg/dL (2.6-4.7) Magnesium Level 2.4 mg/dL (1.8-2.4) Albumin 1.3 g/dL (3.4-5.0) Triglycerides Level 100 mg/dL (0-150) Bedside Arterial pH 7.28 (7.35-7.45) Bedside Arterial pCO2 32 mmHg (35-45) Bedside Arterial pO2 103 mmHg (75-100) Arterial Blood HCO3 15 mmol/L (21-28) Bedside Arterial Blood O2 Sat 97 % (95-99) Bedside FiO2 65.0 Test 12/17/19 17:28 12/18/19 05:05 4/1/20 09:45 Glucose (Fingerstick) 228 mg/dL (70-99) White Blood Count 9.0 x10^3/uL (4.0-11.0) Red Blood Count 2.83 x10^6/uL (4.30-5.70) Hemoglobin 8.4 g/dL (13.0-17.5) Hematocrit 26.0 % (39.0-53.0) Mean Corpuscular Volume 92 fL (79-100) Mean Corpuscular Hemoglobin 30 pg (25-35) Mean Corpuscular Hemoglobin Concent 32 g/dL (31-37) Red Cell Distribution Width 17.1 % (11.5-14.5) Platelet Count 110 x10^3/uL (140-400) Neutrophils (%) (Auto) 90 % (31-73) Lymphocytes (%) (Auto) 2 % (24-48) Monocytes (%) (Auto) 6 % (0-9) Eosinophils (%) (Auto) 1 % (0-3) Basophils (%) (Auto) 0 % (0-3) Neutrophils # (Auto) 8.1 x10^3/uL (1.8-7.7) Lymphocytes # (Auto) 0.2 x10^3/uL (1.0-4.8) Monocytes # (Auto) 0.6 x10^3/uL (0.0-1.1) Eosinophils # (Auto) 0.1 x10^3/uL (0.0-0.7) Basophils # (Auto) 0.0 x10^3/uL (0.0-0.2) Segmented Neutrophils % 81 % (35-66) Band Neutrophils % 10 % (0-9) Lymphocytes % 1 % (24-48) Monocytes % 7 % (0-10) Eosinophils % 1 % (0-5) Platelet Estimate Decreased (ADEQUATE) Polychromasia Slight Anisocytosis Slight Ovalocytes Few Sodium Level 142 mmol/L (136-145) Potassium Level 4.8 mmol/L (3.5-5.1) Chloride Level 110 mmol/L (98-107) Carbon Dioxide Level 19 mmol/L (21-32) Anion Gap 13 (6-14) Blood Urea Nitrogen 60 mg/dL (8-26) Creatinine 3.1 mg/dL (0.7-1.3) Estimated GFR (Cockcroft-Gault) 23.2 Glucose Level 203 mg/dL (70-99) Calcium Level 7.6 mg/dL (8.5-10.1) Phosphorus Level 3.7 mg/dL (2.6-4.7) Magnesium Level 2.8 mg/dL (1.8-2.4) O2 Saturation 93 % (92-99) Arterial Blood pH 7.31 (7.35-7.45) Arterial Blood pCO2 at Patient Temp 37 mmHg (35-46) Arterial Blood pO2 at Patient Temp 73 mmHg (65-108) Arterial Blood HCO3 18 mmol/L (21-28) Arterial Blood Base Excess -8 mmol/L (-3-3) FiO2 60 Laboratory Tests Test 12/17/19 17:28 12/18/19 05:05 12/18/19 09:45 Glucose (Fingerstick) 228 mg/dL (70-99) White Blood Count 9.0 x10^3/uL (4.0-11.0) Red Blood Count 2.83 x10^6/uL (4.30-5.70) Hemoglobin 8.4 g/dL (13.0-17.5) Hematocrit 26.0 % (39.0-53.0) Mean Corpuscular Volume 92 fL (79-100) Mean Corpuscular Hemoglobin 30 pg (25-35) Mean Corpuscular Hemoglobin Concent 32 g/dL (31-37) Red Cell Distribution Width 17.1 % (11.5-14.5) Platelet Count 110 x10^3/uL (140-400) Neutrophils (%) (Auto) 90 % (31-73) Lymphocytes (%) (Auto) 2 % (24-48) Monocytes (%) (Auto) 6 % (0-9) Eosinophils (%) (Auto) 1 % (0-3) Basophils (%) (Auto) 0 % (0-3) Neutrophils # (Auto) 8.1 x10^3/uL (1.8-7.7) Lymphocytes # (Auto) 0.2 x10^3/uL (1.0-4.8) Monocytes # (Auto) 0.6 x10^3/uL (0.0-1.1) Eosinophils # (Auto) 0.1 x10^3/uL (0.0-0.7) Basophils # (Auto) 0.0 x10^3/uL (0.0-0.2) Segmented Neutrophils % 81 % (35-66) Band Neutrophils % 10 % (0-9) Lymphocytes % 1 % (24-48) Monocytes % 7 % (0-10) Eosinophils % 1 % (0-5) Platelet Estimate Decreased (ADEQUATE) Polychromasia Slight Anisocytosis Slight Ovalocytes Few Sodium Level 142 mmol/L (136-145) Potassium Level 4.8 mmol/L (3.5-5.1) Chloride Level 110 mmol/L (98-107) Carbon Dioxide Level 19 mmol/L (21-32) Anion Gap 13 (6-14) Blood Urea Nitrogen 60 mg/dL (8-26) Creatinine 3.1 mg/dL (0.7-1.3) Estimated GFR (Cockcroft-Gault) 23.2 Glucose Level 203 mg/dL (70-99) Calcium Level 7.6 mg/dL (8.5-10.1) Phosphorus Level 3.7 mg/dL (2.6-4.7) Magnesium Level 2.8 mg/dL (1.8-2.4) O2 Saturation 93 % (92-99) Arterial Blood pH 7.31 (7.35-7.45) Arterial Blood pCO2 at Patient Temp 37 mmHg (35-46) Arterial Blood pO2 at Patient Temp 73 mmHg (65-108) Arterial Blood HCO3 18 mmol/L (21-28) Arterial Blood Base Excess -8 mmol/L (-3-3) FiO2 60 Microbiology 12/09/19 Blood Culture - Final, Complete NO GROWTH AFTER 5 DAYS Medications Current Medications Acetaminophen (Tylenol) 1,000 mg 1X ONCE PO ; Start 12/09/19 at 12:15; Stop 12/09/19 at 12:16; Status DC Sodium Chloride 1,000 ml @ 1,000 mls/hr Q1H IV Last administered on 12/09/19at 13:48; Start 12/09/19 at 12:01; Stop 12/09/19 at 13:00; Status DC Ceftriaxone Sodium (Rocephin) 1 gm 1X ONCE IVP Last administered on 12/09/19at 13:49; Start 12/09/19 at 13:30; Stop 12/09/19 at 13:31; Status DC Vancomycin HCl 250 ml @ 250 mls/hr 1X ONCE IV Last administered on 12/09/19at 13:49; Start 12/09/19 at 13:30; Stop 12/09/19 at 14:29; Status DC Dextrose (Dextrose 50%-Water Syringe) 12.5 gm 1X ONCE IV Last administered on 12/09/19at 13:48; Start 12/09/19 at 13:45; Stop 12/09/19 at 13:46; Status DC Sodium Polystyrene Sulfonate (Kayexalate) 15 gm 1X ONCE PO Last administered on 12/09/19at 14:35; Start 12/09/19 at 13:45; Stop 12/09/19 at 13:46; Status DC Sodium Chloride 1,000 ml @ 150 mls/hr Q6H40M IV Last administered on 12/10/19at 09:00; Start 12/09/19 at 13:46; Stop 12/10/19 at 13:45; Status DC Dextrose (Dextrose 50%-Water Syringe) 25 gm 1X ONCE IV Last administered on 12/09/19at 15:09; Start 12/09/19 at 15:00; Stop 12/09/19 at 15:02; Status DC Acetaminophen (Tylenol) 1,000 mg PRN Q6HRS PRN PO FEVER Last administered on 12/11/19at 14:32; Start 12/09/19 at 15:30 Acetaminophen (Tylenol) 1,000 mg PRN Q6HRS PRN PO FEVER; Start 12/09/19 at 15:30; Stop 12/09/19 at 18:00; Status DC Dextrose (Dextrose 50%-Water Syringe) 25 gm 1X ONCE IV Last administered on 12/09/19at 22:38; Start 12/09/19 at 22:30; Stop 12/09/19 at 22:31; Status DC Dextrose (Dextrose 50%-Water Syringe) 12.5 gm PRN Q15MIN PRN IV SEE COMMENTS Last administered on 12/12/19at 21:21; Start 12/10/19 at 00:30 Allopurinol (Zyloprim) 100 mg DAILY PO Last administered on 12/18/19 09:57; Start 12/10/19 at 17:00 Aspirin (Ecotrin) 81 mg DAILY PO Last administered on 12/18/19 09:57; Start 12/10/19 at 17:00 Ferrous Sulfate (Feosol) 325 mg DAILY08 PO Last administered on 12/18/19at 09:57; Start 12/10/19 at 17:00 Fluticasone Propionate (Flonase) 2 spray DAILY NS Last administered on 12/16/19at 09:00; Start 12/11/19 at 09:00 Glipizide (Glucotrol) 2.5 mg DAILYAC PO Last administered on 12/17/19at 09:26; Start 12/11/19 at 07:30 Glipizide (Glucotrol) 5 mg DAILYWSUP PO Last administered on 12/10/19at 17:18; Start 12/10/19 at 17:00; Stop 12/11/19 at 08:03; Status DC Hydrochlorothiazide (Hydrodiuril) 25 mg DAILY PO Last administered on 12/16/19at 09:04; Start 12/10/19 at 17:00; Stop 12/16/19 at 12:52; Status DC Levothyroxine Sodium (Synthroid) 50 mcg DAILY06 PO Last administered on 12/18/19at 09:57; Start 12/11/19 at 06:00 Simvastatin (Zocor) 20 mg QHS PO Last administered on 12/11/19at 21:31; Start 12/10/19 at 21:00; Stop 12/13/19 at 11:28; Status DC Tamsulosin HCl (Flomax) 0.4 mg DAILY PO Last administered on 12/17/19at 09:21; Start 12/10/19 at 17:00 Warfarin Sodium (Coumadin) 3 mg 1X PO ; Start 12/10/19 at 16:00; Stop 12/10/19 at 16:44; Status DC Amlodipine Besylate (Norvasc) 5 mg DAILY PO Last administered on 12/18/19at 10:04; Start 12/10/19 at 17:00 Non-Formulary Medication (Carboxymethylcellulose Sodium (Lubricant Eye Drops)) 1 each HS OP ; Start 12/10/19 at 21:00; Status UNV Pantoprazole Sodium (Protonix) 40 mg DAILYAC PO Last administered on 12/16/19at 09:04; Start 12/10/19 at 16:30; Stop 12/17/19 at 07:44; Status DC Artificial Tears (Artificial Tears) 1 drop [id number] OU ; Start 12/10/19 at 17:00; Stop 12/10/19 at 16:44; Status DC Cetirizine HCl (ZyrTEC) 10 mg DAILY PO Last administered on 12/18/19at 09:57; Start 12/10/19 at 17:00 Warfarin Sodium (Coumadin Per Physician) 1 each PRN DAILY PRN MC SEE COMMENTS; Start 12/10/19 at 16:30; Stop 12/10/19 at 16:44; Status DC Ceftriaxone Sodium (Rocephin) 1 gm Q24H IVP Last administered on 12/12/19at 17:24; Start 12/10/19 at 18:00; Stop 12/13/19 at 09:07; Status DC Azithromycin 250 ml @ 250 mls/hr 1X ONCE IV ; Start 12/10/19 at 16:30; Stop 12/10/19 at 17:29; Status UNV Lisinopril (Prinivil) 10 mg DAILY PO Last administered on 12/18/19at 10:03; Start 12/10/19 at 17:00 Azithromycin 500 mg/Sodium Chloride 250 ml @ 250 mls/hr Q24H IV Last administered on 12/12/19at 17:21; Start 12/10/19 at 18:00; Stop 12/13/19 at 11:18; Status DC Carbidopa/Levodopa (Sinemet 25/100) 2 tab TID PO Last administered on 12/18/19at 09:56; Start 12/10/19 at 17:00 Lactobacillus Rhamnosus (Culturelle) 1 cap BID PO Last administered on 12/14/19at 20:48; Start 12/11/19 at 21:00; Stop 12/15/19 at 08:34; Status DC Acetaminophen (Tylenol Supp) 650 mg PRN Q6HRS PRN [place] MILD PAIN / TEMP Last administered on 12/15/19at 17:55; Start 12/12/19 at 07:45 Amino Acids/ Glycerin/ Electrolytes 1,000 ml @ 50 mls/hr Q20H IV Last administered on 12/15/19at 21:47; Start 12/12/19 at 10:15; Stop 12/16/19 at 21:59; Status DC Sodium Chloride 1,000 ml @ 75 mls/hr [id number] IV Last administered on 12/17/19at 09:22; Start 12/12/19 at 11:00; Stop 12/17/19 at 11:52; Status DC Enoxaparin Sodium (Lovenox 30mg Syringe) 30 mg Q24H SQ Last administered on 12/18/19at 10:25; Start 12/12/19 at 12:00 Hydroxychloroquine Sulfate (Plaquenil) 400 mg BID PO Last administered on 12/14/19at 20:48; Start 12/13/19 at 09:00; Stop 12/14/19 at 21:01; Status DC Hydroxychloroquine Sulfate (Plaquenil) 200 mg BID PO Last administered on 12/17/19at 22:59; Start 12/15/19 at 09:00; Stop 12/17/19 at 21:01; Status DC Piperacillin Sod/ Tazobactam Sod 4.5 gm/Sodium Chloride 100 ml @ 200 mls/hr Q6HRS IV ; Start 12/13/19 at 12:00; Status UNV Vancomycin HCl (Vanco Per Pharmacy) 1 each PRN DAILY PRN MC SEE COMMENTS Last administered on 12/16/19at 12:31; Start 12/13/19 at 09:00 Piperacillin Sod/ Tazobactam Sod 3.375 gm/Sodium Chloride 50 ml @ 100 mls/hr Q6HRS IV Last administered on 12/18/19at 05:16; Start 12/13/19 at 10:00 Vancomycin HCl 1.5 gm/Sodium Chloride 500 ml @ 250 mls/hr 1X ONCE IV Last administered on 12/13/19at 11:11; Start 12/13/19 at 10:00; Stop 12/13/19 at 11:59; Status DC Fentanyl Citrate 30 ml @ 2.5 mls/hr CONT PRN IV SEE PROTOCOL Last administered on 12/18/19at 07:35; Start 12/13/19 at 10:15 Chlorhexidine Gluconate (Peridex) 15 ml BID MM Last administered on 12/17/19at 09:23; Start 12/13/19 at 21:00 Morphine Sulfate (Morphine Sulfate) 2 mg PRN Q1HR PRN IV SEE COMMENTS.; Start 12/13/19 at 10:15 Morphine Sulfate (Morphine Sulfate) 4 mg PRN Q1HR PRN IV SEE COMMENTS. Last administered on 12/13/19at 12:40; Start 12/13/19 at 10:15 Propofol 100 ml @ 1.05 mls/hr CONT PRN IV SEE I/O RECORD Last administered on 12/16/19at 05:16; Start 12/13/19 at 10:30 Propofol 100 ml @ As Directed STK-MED ONCE IV ; Start 12/13/19 at 08:48; Stop 12/13/19 at 14:11; Status DC Propofol 100 ml @ As Directed STK-MED ONCE IV ; Start 12/13/19 at 09:33; Stop 12/13/19 at 14:12; Status DC Norepinephrine Bitartrate 8 mg/ Dextrose 258 ml @ 13.545 mls/ hr CONT PRN IV PER PROTOCOL Last administered on 12/16/19at 05:15; Start 12/13/19 at 15:30 Vancomycin HCl (Vancomycin Random Level) 1 each 1X ONCE MC Last administered on 12/14/19at 04:52; Start 12/14/19 at 05:00; Stop 12/14/19 at 05:01; Status DC Vancomycin HCl 1 gm/Sodium Chloride 250 ml @ 250 mls/hr Q48H IV Last administered on 12/16/19at 10:42; Start 12/14/19 at 09:00; Stop 12/16/19 at 12:01; Status DC Vancomycin HCl (Vancomycin Trough Level) 1 each 1X ONCE MC Last administered on 12/16/19at 08:30; Start 12/16/19 at 08:30; Stop 12/16/19 at 08:31; Status DC Vecuronium [place] (Norcuron Bolus) 10 mg STK-MED ONCE IV ; Start 12/14/19 at 12:43; Stop 12/14/19 at 12:43; Status DC Vecuronium [place] (Norcuron Bolus) 6 mg 1X ONCE IV Last administered on 12/14/19at 12:55; Start 12/14/19 at 12:45; Stop 12/14/19 at 12:52; Status DC Azithromycin 250 mg/Sodium Chloride 250 ml @ 250 mls/hr Q24H IV Last administered on 12/17/19at 11:45; Start 12/15/19 at 10:00 Vecuronium [place] (Norcuron Bolus) 10 mg STK-MED ONCE IV ; Start 12/16/19 at 10:45; Stop 12/16/19 at 10:45; Status DC Vecuronium [place] (Norcuron Bolus) 6 mg 1X ONCE IV ; Start 12/16/19 at 11:15; Stop 12/16/19 at 11:16; Status DC Vancomycin HCl 1 gm/Sodium Chloride 250 ml @ 250 mls/hr Q36H IV Last administered on 12/17/19at 23:02; Start 12/17/19 at 23:00 Midazolam HCl 50 mg/Sodium Chloride 50 ml @ 1 mls/hr CONT PRN IV SEE I/O RECORD; Start 12/16/19 at 12:15; Stop 12/16/19 at 12:10; Status DC Midazolam HCl 100 mg/Sodium Chloride 100 ml @ 1 mls/hr CONT PRN IV SEE I/O RECORD Last administered on 12/18/19at 07:32; Start 12/16/19 at 12:15 Vancomycin HCl (Vancomycin Trough Level) 1 each 1X ONCE MC ; Start 12/19/19 at 10:30; Stop 12/19/19 at 10:31 Info (Tpn Per Pharmacy) 1 each PRN DAILY PRN MC SEE COMMENTS Last administered on 12/18/19at 09:56; Start 12/16/19 at 13:00 Sodium Acetate 60 meq/Potassium Chloride 20 meq/ Potassium Phosphate 10 mmol/ Magnesium Sulfate 10 meq/Calcium Gluconate 10 meq/ Multivitamins 10 ml/Chromium/ Copper/Manganese/ Seleni/Zn 0.5 ml/ Total Parenteral Nutrition/Amino Acids/Dextrose 1,200 ml @ 50 mls/hr TPN CONT IV Last administered on 12/16/19at 22:24; Start 12/16/19 at 22:00; Stop 12/17/19 at 21:59; Status DC Pantoprazole Sodium (PROTONIX VIAL for IV PUSH) 40 mg DAILYAC IVP Last administered on 12/18/19at 09:54; Start 12/17/19 at 09:00 Vecuronium [place] (Norcuron Bolus) 6 mg Q4HRS PRN IV VENT ASYNCHRONY Last administered on 12/17/19at 11:46; Start 12/17/19 at 08:45 Sodium Bicarbonate (Sodium Bicarb Adult 8.4% Syr) 50 meq 1X ONCE IV Last administered on 12/17/19at 09:31; Start 12/17/19 at 08:45; Stop 12/17/19 at 08:47; Status DC Sodium Bicarbonate 50 meq/Sodium Chloride 1,050 ml @ 100 mls/hr [id number] IV Last administered on 12/18/19at 10:44; Start 12/17/19 at 12:30 Sodium Acetate 60 meq/Potassium Chloride 20 meq/ Potassium Phosphate 10 mmol/ Magnesium Sulfate 10 meq/Calcium Gluconate 10 meq/ Multivitamins 10 ml/Chromium/ Copper/Manganese/ Seleni/Zn 0.5 ml/ Total Parenteral Nutrition/Amino Acids/Dextrose/ Fat Emulsion Intravenous 1,200 ml @ 50 mls/hr TPN CONT IV Last administered on 12/17/19at 23:00; Start 12/17/19 at 22:00; Stop 12/18/19 at 21:59 Ascorbic Acid (Vitamin C) 500 mg DAILY PO Last administered on 12/18/19at 09:57; Start 12/17/19 at 15:00 Zinc Sulfate (Orazinc) 220 mg DAILY PO Last administered on 12/18/19at 10:03; Start 12/17/19 at 15:00 Metoclopramide HCl (Reglan Vial) 10 mg PRN Q6HRS PRN IVP NAUSEA/VOMITING; Start 12/18/19 at 09:15; Stop 12/18/19 at 09:06; Status DC Ondansetron HCl (Zofran) 4 mg PRN Q6HRS PRN IVP NAUSEA/VOMITING Last administered on 12/18/19at 09:55; Start 12/18/19 at 09:15 Sodium Chloride 500 ml @ 500 mls/hr 1X ONCE IV ; Start 12/18/19 at 09:15; Stop 12/18/19 at 10:14; Status DC Metoclopramide HCl (Reglan Vial) 5 mg PRN Q6HRS PRN IVP NAUSEA/VOMITING, 2ND CHOICE Last administered on 12/18/19at 09:55; Start 12/18/19 at 09:15 Sodium Acetate 60 meq/Potassium Chloride 10 meq/ Potassium Phosphate 10 mmol/ Calcium Gluconate 5 meq/ Multivitamins 10 ml/Chromium/ Copper/Manganese/ Seleni/Zn 0.5 ml/ Total Parenteral Nutrition/Amino Acids/Dextrose/ Fat Emulsion Intravenous 1,200 ml @ 50 mls/hr TPN CONT IV ; Start 12/18/19 at 22:00; Stop 12/19/19 at 21:59 Hydroxychloroquine Sulfate (Plaquenil) 200 mg BID PO Last administered on 12/18/19at 10:24; Start 12/18/19 at 11:00; Stop 12/18/19 at 21:01 Active Scripts Active Reported Carbidopa-Levodopa 25-100 Tab (Carbidopa/Levodopa) 1 Each Tablet 50-200 PO TID Fluticasone Propionate Nasal [place] (Fluticasone Propionate) 16 Gm [place].susp 2 [place] NS DAILY last dos this am next dose tomorrow am (monday) Glipizide 5 Mg Tablet 5 Mg PO DAILYWSUP last dose last night next dose tonight with supper Glipizide 5 Mg Tablet 2.5 Mg PO DAILY last dose this am (next dose tomorrow am monday) Loratadine 10 Mg Tablet 10 Mg PO last dose this am next dose tomorrow am(monday) Omeprazole 20 Mg Capsule.dr 20 Mg PO DAILY last dose this am next dose tomorrow am (monday) Ferrous Sulfate 325 Mg Tablet 1 Tab PO DAILY last dose this am next dose tonight Amlodipine-Benazepril 5-10 Mg (Amlodipine Besylate/Benazepril) 1 Each Capsule 1 Cap PO DAILY last dos this am next dose tomorrow am (monday) Tamsulosin Hcl 0.4 Mg Cap.er.24h 1 Cap PO DAILY last dose this am next dose tomorrow am (monday) Simvastatin 20 Mg Tablet 1 Tab PO QHS last dose last evening next dose tonight Hydrochlorothiazide Tablet (Hydrochlorothiazide) 25 Mg Tablet 1 Tab PO DAILY last dos this am next dose tomorrow am (monday) Allopurinol 100 Mg Tablet 1 Tab PO DAILY last dose this am next dose tomorrow on monday Levothyroxine Sodium 50 Mcg Tablet 1 Tab PO DAILY last dose this am next dose tomorrow am (monday) Vitals/I & O Vital Sign - Last 24 Hours 12/17/19 12/17/19 12/17/19 12/17/19 11:00 11:28 12:00 12:00 Temp 102.0 102.0 Pulse 80 78 Resp 24 19 B/P (MAP) 120/58 (78) 103/48 (66) Pulse Ox 98 100 100 O2 Delivery Ventilator Ventilator Mechanical Ventilator Ventilator O2 Flow Rate 2.0 12/17/19 12/17/19 12/17/19 12/17/19 13:00 14:00 15:00 15:26 Temp 99.5 99.5 Pulse 82 78 66 Resp 19 19 24 24 B/P (MAP) 105/52 (69) 105/57 (73) Pulse Ox 100 100 100 O2 Delivery Ventilator Ventilator Ventilator Ventilator 12/17/19 12/17/19 12/17/19 12/17/19 15:36 16:00 16:00 17:00 Temp 94.0 95.0 94.0 95.0 Pulse 60 60 Resp 20 20 B/P (MAP) 116/59 (78) 110/62 (78) Pulse Ox 100 100 100 O2 Delivery Ventilator Ventilator Mechanical Ventilator Ventilator O2 Flow Rate 2.0 12/17/19 12/17/19 12/17/19 12/17/19 18:00 19:00 20:00 20:00 Temp 95.3 100.0 95.3 100.0 Pulse 62 70 72 Resp 20 20 21 B/P (MAP) 112/59 (76) 96/48 (64) 101/48 (65) Pulse Ox 100 100 100 O2 Delivery Ventilator Ventilator Mechanical Ventilator Ventilator O2 Flow Rate 2.0 12/17/19 12/17/19 12/17/19 12/17/19 20:05 21:00 22:00 23:00 Pulse 64 74 74 Resp 20 20 20 B/P (MAP) 100/51 (67) 116/61 (79) 119/56 (77) Pulse Ox 98 100 100 100 O2 Delivery Ventilator Ventilator Ventilator Ventilator 12/17/19 12/17/19 12/17/19 12/18/19 23:03 23:33 23:35 00:00 Resp 26 22 Pulse Ox 100 100 100 O2 Delivery Ventilator Mechanical Ventilator O2 Flow Rate 2.0 2.0 2.0 12/18/19 12/18/19 12/18/19 12/18/19 00:01 01:00 02:00 03:00 Temp 99.1 99.1 Pulse 58 54 70 72 Resp 20 20 20 21 B/P (MAP) 116/58 (77) 112/51 (71) 133/60 (84) 127/56 (79) Pulse Ox 98 100 100 100 O2 Delivery Ventilator Ventilator Ventilator Ventilator 12/18/19 12/18/19 12/18/19 12/18/19 03:43 04:00 04:00 05:00 Temp 97.6 97.6 Pulse 72 56 Resp 21 21 B/P (MAP) 127/56 (79) 107/49 (68) Pulse Ox 99 100 100 O2 Delivery Ventilator Mechanical Ventilator Ventilator Ventilator 12/18/19 12/18/19 12/18/19 12/18/19 06:00 06:40 07:35 08:21 Pulse 52 Resp 21 26 24 B/P (MAP) 101/50 (67) Pulse Ox 100 100 100 O2 Delivery Ventilator Ventilator Ventilator O2 Flow Rate 2.0 12/18/19 12/18/19 10:03 10:04 Pulse 66 60 B/P (MAP) 107/60 107/60 Intake and Output 12/17/19 12/17/19 12/18/19 15:00 23:00 07:00 Intake Total 350 ml 1502 ml Output Total 230 ml 325 ml 355 ml Balance 120 ml 1177 ml -355 ml Nutrition Consultation Dietary Evaluation: Recommendations by RD: Dietary education by RD, Increase Calorie Intake, PPN/TPN Comments: REC TPN per followin g dextrose, 85 g AA, 20 g lipids Expected Outcomes/Goals: Initiation of TFs within 24 - 48 hrs of intubation - not met, new goal established New goal 12/16: Nutrition support to meet >65% estimated nutrition needs while pt remains intubated Interpretation of weight loss: >5% in 1 month Malnutrition Findings: Food and Nutrition Intake (Sev: <50% est energy req 5days Weight Status: Appropriate DANTE CAGE MD Dec 18, 2019 11:01
--- NOTE | 2019-12-18 11:11 | PDOC ---
Renal-Progress Notes Subjective Notes Notes INTUBATED History of Present Illness Hx of present illness NO CHANGE Vitals Vitals Vital Signs Date Time Temp Pulse Resp B/P (MAP) Pulse Ox O2 Delivery O2 Flow Rate FiO2 12/18/19 10:04 60 107/60 12/18/19 08:21 100 Ventilator 12/18/19 07:35 24 12/18/19 06:40 2.0 12/18/19 04:00 97.6 97.6 Weight Weight [ ] I.O. Intake and Output Intake and Output 12/18/19 07:00 Intake Total 1852 ml Output Total 910 ml Balance 942 ml IV Total 1852 ml Output Urine Total 910 ml Labs Labs Laboratory Tests Test 12/17/19 17:28 12/18/19 05:05 12/18/19 09:45 Glucose (Fingerstick) 228 mg/dL (70-99) White Blood Count 9.0 x10^3/uL (4.0-11.0) Red Blood Count 2.83 x10^6/uL (4.30-5.70) Hemoglobin 8.4 g/dL (13.0-17.5) Hematocrit 26.0 % (39.0-53.0) Mean Corpuscular Volume 92 fL (79-100) Mean Corpuscular Hemoglobin 30 pg (25-35) Mean Corpuscular Hemoglobin Concent 32 g/dL (31-37) Red Cell Distribution Width 17.1 % (11.5-14.5) Platelet Count 110 x10^3/uL (140-400) Neutrophils (%) (Auto) 90 % (31-73) Lymphocytes (%) (Auto) 2 % (24-48) Monocytes (%) (Auto) 6 % (0-9) Eosinophils (%) (Auto) 1 % (0-3) Basophils (%) (Auto) 0 % (0-3) Neutrophils # (Auto) 8.1 x10^3/uL (1.8-7.7) Lymphocytes # (Auto) 0.2 x10^3/uL (1.0-4.8) Monocytes # (Auto) 0.6 x10^3/uL (0.0-1.1) Eosinophils # (Auto) 0.1 x10^3/uL (0.0-0.7) Basophils # (Auto) 0.0 x10^3/uL (0.0-0.2) Segmented Neutrophils % 81 % (35-66) Band Neutrophils % 10 % (0-9) Lymphocytes % 1 % (24-48) Monocytes % 7 % (0-10) Eosinophils % 1 % (0-5) Platelet Estimate Decreased (ADEQUATE) Polychromasia Slight Anisocytosis Slight Ovalocytes Few Sodium Level 142 mmol/L (136-145) Potassium Level 4.8 mmol/L (3.5-5.1) Chloride Level 110 mmol/L (98-107) Carbon Dioxide Level 19 mmol/L (21-32) Anion Gap 13 (6-14) Blood Urea Nitrogen 60 mg/dL (8-26) Creatinine 3.1 mg/dL (0.7-1.3) Estimated GFR (Cockcroft-Gault) 23.2 Glucose Level 203 mg/dL (70-99) Calcium Level 7.6 mg/dL (8.5-10.1) Phosphorus Level 3.7 mg/dL (2.6-4.7) Magnesium Level 2.8 mg/dL (1.8-2.4) O2 Saturation 93 % (92-99) Arterial Blood pH 7.31 (7.35-7.45) Arterial Blood pCO2 at Patient Temp 37 mmHg (35-46) Arterial Blood pO2 at Patient Temp 73 mmHg (65-108) Arterial Blood HCO3 18 mmol/L (21-28) Arterial Blood Base Excess -8 mmol/L (-3-3) FiO2 60 Micro Micro Microbiology 12/09/19 Blood Culture - Final, Complete NO GROWTH AFTER 5 DAYS Review of Systems Constitutional: yes: unresponsive, other (ON THE VENT) Physical Exam General Appearance: other (SEDATED) Skin: warm Respiratory: ventilator (Mode:A/C), decreased breath sounds Heart: S1S2 Abdomen: bowel sounds present Genitourinary: bladder flat Extremities: pulses present Neurology: other (SEDATED) Musculoskeletal: Other (SEDATED ON THE VENT) Assessment Assessment IMP BIA-WORSE CR BACK UP TO 3.1 MET ACIDOSIS CKD STAGE 3 WITH BASELINE CR OF 2.0 ACUTE RESP [id number] FIO2 OF 60% PNEUMONIA COVID - 19 SEPSIS PLAN HYDRATION HCO3 GTT PRESSORS NEEDED ANTIBIOTICS HOLD DIURETICS STOP HIS YONG-I CONT TPN START ARANESP VENT SUPPORT WILL FOLLOW MARGE TRIPATHI MD Dec 18, 2019 11:11
[2019-12-18] MEDS: AZITHROMYCIN 250 MG in IV NORMAL SALINE 250ML 250 ML IV SCH (11:17)
[2019-12-18] MEDS ORDERED: [UNRECOGNIZED DRUG - OTHER] IV SCH ×9 (22:00)
[2019-12-18] MEDS ORDERED: TOTAL PARENTERAL NUTRITION IV SCH ×9 (22:00)
[2019-12-18] MEDS ORDERED: AMINO ACID IV SCH ×9 (22:00)
[2019-12-18] MEDS ORDERED: DEXTROSE 70% IV SCH ×9 (22:00)
[2019-12-19] VITALS (24 sets, daily range): BP systolic 105–135; BP diastolic 46–77
[2019-12-19] MEDS: PIPERACILLIN/TAZOBACTAM 3.375 GM in IV NORMAL SALINE 50ML 50 ML IV SCH ×3 (00:50→11:39)
[2019-12-19] MEDS: MIDAZOLAM HCL 100 MG in IV NORMAL SALINE 100ML 100 ML IV PRN ×2 (05:09→17:26)
[2019-12-19] MEDS: LEVOTHYROXINE 50 MCG TABLET PO SCH (06:24)
[2019-12-19 07:13] LABS: BASO % 0 % (0-3); CALCIUM 7.6 mg/dL (8.5-10.1); CREATININE 3.4 mg/dL (0.7-1.3); EOS # 0.1 x10^3/uL (0.0-0.7); EOS % 1 % (0-3); GFR 20.9; HEMATOCRIT 24.4 % (39.0-53.0); LYMPH # 0.3 x10^3/uL (1.0-4.8); LYMPH % 4 % (24-48); MAGNESIUM 2.7 mg/dL (1.8-2.4); MEAN CORPUSCULAR HEMOGLOBIN 30 pg (25-35); MEAN CORPUSCULAR HGB CONC 33 g/dL (31-37); MEAN CORPUSCULAR VOLUME 91 fL (79-100); MONO # 0.6 x10^3/uL (0.0-1.1); MONO % 7 % (0-9); NEUT # 7.7 x10^3/uL (1.8-7.7); NEUT % 88 % (31-73); PHOSPHORUS 3.5 mg/dL (2.6-4.7); PLATELET COUNT 105 x10^3/uL (140-400); POTASSIUM 4.4 mmol/L (3.5-5.1); RED BLOOD COUNT 2.68 x10^6/uL (4.30-5.70); RED CELL DISTRIBUTION WIDTH 17.4 % (11.5-14.5); WHITE BLOOD COUNT 8.8 x10^3/uL (4.0-11.0)
--- NOTE | 2019-12-19 07:30 | PDOC ---
PULMONARY PROGRESS NOTES Subjective Pt intubated/ sedated on PC mode, 60%FIO2/ 8 PEEP sedated worsening renal function Vitals Vital Signs Date Time Temp Pulse Resp B/P (MAP) Pulse Ox O2 Delivery O2 Flow Rate FiO2 12/19/19 06:00 64 22 107/50 (69) 95 Ventilator 12/19/19 04:00 96.4 96.4 12/19/19 02:55 2.0 Comments Visual exam done intubated/ sedated , no obvious JVD, no rash, trace edema Lungs: Other (coarse breath sounds) Abdomen: Soft Extremities: Other (trace edema, no rash) Skin: Warm Labs Laboratory Tests Test 12/17/19 09:01 12/17/19 17:28 12/18/19 05:05 12/18/19 09:45 Bedside Arterial pH 7.28 (7.35-7.45) Bedside Arterial pCO2 32 mmHg (35-45) Bedside Arterial pO2 103 mmHg (75-100) Arterial Blood HCO3 15 mmol/L (21-28) 18 mmol/L (21-28) Bedside Arterial Blood O2 Sat 97 % (95-99) Bedside FiO2 65.0 Glucose (Fingerstick) 228 mg/dL (70-99) White Blood Count 9.0 x10^3/uL (4.0-11.0) Red Blood Count 2.83 x10^6/uL (4.30-5.70) Hemoglobin 8.4 g/dL (13.0-17.5) Hematocrit 26.0 % (39.0-53.0) Mean Corpuscular Volume 92 fL (79-100) Mean Corpuscular Hemoglobin 30 pg (25-35) Mean Corpuscular Hemoglobin Concent 32 g/dL (31-37) Red Cell Distribution Width 17.1 % (11.5-14.5) Platelet Count 110 x10^3/uL (140-400) Neutrophils (%) (Auto) 90 % (31-73) Lymphocytes (%) (Auto) 2 % (24-48) Monocytes (%) (Auto) 6 % (0-9) Eosinophils (%) (Auto) 1 % (0-3) Basophils (%) (Auto) 0 % (0-3) Neutrophils # (Auto) 8.1 x10^3/uL (1.8-7.7) Lymphocytes # (Auto) 0.2 x10^3/uL (1.0-4.8) Monocytes # (Auto) 0.6 x10^3/uL (0.0-1.1) Eosinophils # (Auto) 0.1 x10^3/uL (0.0-0.7) Basophils # (Auto) 0.0 x10^3/uL (0.0-0.2) Segmented Neutrophils % 81 % (35-66) Band Neutrophils % 10 % (0-9) Lymphocytes % 1 % (24-48) Monocytes % 7 % (0-10) Eosinophils % 1 % (0-5) Platelet Estimate Decreased (ADEQUATE) Polychromasia Slight Anisocytosis Slight Ovalocytes Few Sodium Level 142 mmol/L (136-145) Potassium Level 4.8 mmol/L (3.5-5.1) Chloride Level 110 mmol/L (98-107) Carbon Dioxide Level 19 mmol/L (21-32) Anion Gap 13 (6-14) Blood Urea Nitrogen 60 mg/dL (8-26) Creatinine 3.1 mg/dL (0.7-1.3) Estimated GFR (Cockcroft-Gault) 23.2 Glucose Level 203 mg/dL (70-99) Calcium Level 7.6 mg/dL (8.5-10.1) Phosphorus Level 3.7 mg/dL (2.6-4.7) Magnesium Level 2.8 mg/dL (1.8-2.4) O2 Saturation 93 % (92-99) Arterial Blood pH 7.31 (7.35-7.45) Arterial Blood pCO2 at Patient Temp 37 mmHg (35-46) Arterial Blood pO2 at Patient Temp 73 mmHg (65-108) Arterial Blood Base Excess -8 mmol/L (-3-3) FiO2 60 Test 12/19/19 06:50 Sodium Level 138 mmol/L (136-145) Potassium Level 4.4 mmol/L (3.5-5.1) Chloride Level 107 mmol/L (98-107) Carbon Dioxide Level 20 mmol/L (21-32) Anion Gap 11 (6-14) Blood Urea Nitrogen 68 mg/dL (8-26) Creatinine 3.4 mg/dL (0.7-1.3) Estimated GFR (Cockcroft-Gault) 20.9 Glucose Level 236 mg/dL (70-99) Calcium Level 7.6 mg/dL (8.5-10.1) Phosphorus Level 3.5 mg/dL (2.6-4.7) Magnesium Level 2.7 mg/dL (1.8-2.4) Laboratory Tests Test 12/18/19 09:45 12/19/19 06:50 O2 Saturation 93 % (92-99) Arterial Blood pH 7.31 (7.35-7.45) Arterial Blood pCO2 at Patient Temp 37 mmHg (35-46) Arterial Blood pO2 at Patient Temp 73 mmHg (65-108) Arterial Blood HCO3 18 mmol/L (21-28) Arterial Blood Base Excess -8 mmol/L (-3-3) FiO2 60 Sodium Level 138 mmol/L (136-145) Potassium Level 4.4 mmol/L (3.5-5.1) Chloride Level 107 mmol/L (98-107) Carbon Dioxide Level 20 mmol/L (21-32) Anion Gap 11 (6-14) Blood Urea Nitrogen 68 mg/dL (8-26) Creatinine 3.4 mg/dL (0.7-1.3) Estimated GFR (Cockcroft-Gault) 20.9 Glucose Level 236 mg/dL (70-99) Calcium Level 7.6 mg/dL (8.5-10.1) Phosphorus Level 3.5 mg/dL (2.6-4.7) Magnesium Level 2.7 mg/dL (1.8-2.4) Medications Active Scripts Medications Dose Route/Sig Max Daily Dose Days Date Category Dose Instructions Warfarin Sodium 3 Mg Tablet 1 Tab PO 1X 09/28/17 Reported Fluticasone Propionate Nasal [place] (Fluticasone Propionate) 16 Gm [place].susp 2 [place] NS DAILY 09/25/17 Reported last dos this am next dose tomorrow am (monday) Lubricant Eye Drops (Propylene Glycol) 10 Ml Drops 10 Ml OP [id number] 09/25/17 Reported last dose after lunch next dose with supper/ bedtime Lubricant Eye Drops (Carboxymethylcellulose Sodium) 1 Each Droperette 1 Each OP HS 09/25/17 Reported last dose last evening next dosetonight provided his own Glipizide 5 Mg Tablet 5 Mg PO [id number] 07/12/16 Reported last dose last night next dose tonight with supper Glipizide 5 Mg Tablet 2.5 Mg PO DAILY 07/12/16 Reported last dose this am (next dose tomorrow am monday) Loratadine 10 Mg Tablet 10 Mg PO 06/27/16 Reported last dose this am next dose tomorrow am(monday) Omeprazole 20 Mg Capsule.dr 20 Mg PO DAILY 06/27/16 Reported last dose this am next dose tomorrow am (monday) Ferrous Sulfate 325 Mg Tablet 1 Tab PO DAILY 06/27/16 Reported last dose this am next dose tonight Aspir 81 (Aspirin) 81 Mg Tablet.dr 81 Mg PO DAILY 06/27/16 Reported Amlodipine-Benazepril 5-10 Mg (Amlodipine Besylate/Benazepril) 1 Each Capsule 1 Cap PO DAILY 06/27/16 Reported last dos this am next dose tomorrow am (monday) Tamsulosin Hcl 0.4 Mg Cap.er.24h 1 Cap PO DAILY 10/06/14 Reported last dose this am next dose tomorrow am (monday) Simvastatin 20 Mg Tablet 1 Tab PO QHS 10/06/14 Reported last dose last evening next dose tonight Hydrochlorothiazide Tablet (Hydrochlorothiazide) 25 Mg Tablet 1 Tab PO DAILY 10/06/14 Reported last dos this am next dose tomorrow am (monday) Allopurinol 100 Mg Tablet 1 Tab PO DAILY 10/06/14 Reported last dose this am next dose tomorrow on monday Levothyroxine Sodium 50 Mcg Tablet 1 Tab PO DAILY 10/06/14 Reported last dose this am next dose tomorrow am (monday) Comments CXR 4 mild interstitial infiltrates bilateral, no sig change Impression . This is an 84-year-old, who presents with comorbidities including debility, diabetes, and chronic kidney disease on top of acute kidney disease with abnormal chest x-ray/ hypoxia/ RF 1. Acute respiratory failure secondary ARDS 2. Pneumonia, COVID-19 positive test (U07.1, COVID-19) with Acute Pneumonia (J12.89, Other viral pneumonia) (If respiratory failure or sepsis present, add as separate assessment) 3. diabetes 4. Abnormal chest x-ray, suspect superimposed bacterial pneumonia (gram-negative gram-positive), underlying viral pneumonia 5. Septic shock, off levoped 6. Protein malnutrition present upon admission 7. Acute kidney injury,worse 8. Metabolic acidosis due to BIA 9. Severe PCM Labs reviewed, chest x-ray reviewed Plan . Continue PC mode,high FIO2 60%, PEEP 8. Follow ABG and make necessary adjustments . PRN paralytics sedation Prone positioning per protocol. Follow CXR and Labs Empiric hydro-hydroxychloroquine, Zithromax ( dc at day 5) Continue vancomycin and Zosyn DVT GI prophylaxis Nutritional support with TPN worsening renal function, follow renal rec The above was discussed with RN and RT Total cumulative critical care time of 30 minutes reviewing data, labs, chest x- ray, and managing vent prognosis guarded ADITYA FERREIRA MD Dec 19, 2019 07:30
[2019-12-19 09:00] LABS: BASE EXCESS ABG -7 mmol/L (-3-3); HCO3 ABG 19 mmol/L (21-28); PCO2 ABG 38 mmHg (35-46); PO2 ABG 77 mmHg (65-108)
[2019-12-19] MEDS: FLUTICASONE 50MCG/NASAL SPRAY 16GM BOTTLE. NS SCH (09:00)
[2019-12-19] MEDS: CETIRIZINE HCL 10 MG TABLET. PO SCH (09:29)
[2019-12-19] MEDS: FERROUS SULFATE 325 MG TABLET. PO SCH (09:29)
[2019-12-19] MEDS: amLODIPine BESYLATE 5 MG TABLET PO SCH (09:29)
[2019-12-19] MEDS: CARBIDOPA/LEVODOPA 25/100MG TABLET PO SCH ×3 (09:29→21:19)
[2019-12-19] MEDS: ASCORBIC ACID 500 MG TABLET PO SCH (09:29)
[2019-12-19] MEDS: PANTOPRAZOLE IV PUSH 40 MG VIAL. IVP SCH (09:30)
[2019-12-19] MEDS: ZINC SULFATE 220 MG CAPSULE. PO SCH (09:30)
[2019-12-19] MEDS: TAMSULOSIN 0.4 MG CAP.ER.24H. PO SCH (09:30)
[2019-12-19] MEDS: glipiZIDE 5 MG TABLET PO SCH (09:30)
[2019-12-19] MEDS: ALLOPURINOL 100 MG TABLET. PO SCH (09:30)
[2019-12-19] MEDS: VANCOMYCIN 1 GM in IV NORMAL SALINE 250ML 250 ML IV SCH ×2 (09:31→11:39)
[2019-12-19] MEDS: ASPIRIN ENTERIC COATED 81 MG TABLET.DR. PO SCH (09:31)
[2019-12-19] MEDS: SODIUM BICARBONATE VIAL 50 MEQ in IV 1/2 NORMAL SALINE 1,000 ML IV SCH ×2 (09:32→16:47)
[2019-12-19] MEDS: AZITHROMYCIN 250 MG in IV NORMAL SALINE 250ML 250 ML IV SCH (09:32)
[2019-12-19] MEDS: CHLORHEXIDINE 0.12% 15 ML MOUTHWASH. MM SCH ×2 (09:33→21:19)
[2019-12-19 10:07] LABS: FIO2 ABG 60
[2019-12-19 10:31] LABS: VANC TR 14.2 mcg/mL (10.0-20.0)
--- NOTE | 2019-12-19 11:09 | PDOC ---
Renal-Progress Notes Subjective Notes Notes REMAINS ON THE VENT History of Present Illness Hx of present illness NO CHANGE Vitals Vitals Vital Signs Date Time Temp Pulse Resp B/P (MAP) Pulse Ox O2 Delivery O2 Flow Rate FiO2 12/19/19 10:32 100 15.0 12/19/19 10:02 20 Ventilator 12/19/19 09:29 64 107/50 12/19/19 04:00 96.4 96.4 Weight Weight [ ] I.O. Intake and Output Intake and Output 12/19/19 07:00 Intake Total 4673.1 ml Output Total 680 ml Balance 3993.1 ml IV Total 4673.1 ml Output Urine Total 680 ml Labs Labs Laboratory Tests Test 12/19/19 06:50 12/19/19 08:00 12/19/19 10:10 White Blood Count 8.8 x10^3/uL (4.0-11.0) Red Blood Count 2.68 x10^6/uL (4.30-5.70) Hemoglobin 8.0 g/dL (13.0-17.5) Hematocrit 24.4 % (39.0-53.0) Mean Corpuscular Volume 91 fL (79-100) Mean Corpuscular Hemoglobin 30 pg (25-35) Mean Corpuscular Hemoglobin Concent 33 g/dL (31-37) Red Cell Distribution Width 17.4 % (11.5-14.5) Platelet Count 105 x10^3/uL (140-400) Neutrophils (%) (Auto) 88 % (31-73) Lymphocytes (%) (Auto) 4 % (24-48) Monocytes (%) (Auto) 7 % (0-9) Eosinophils (%) (Auto) 1 % (0-3) Basophils (%) (Auto) 0 % (0-3) Neutrophils # (Auto) 7.7 x10^3/uL (1.8-7.7) Lymphocytes # (Auto) 0.3 x10^3/uL (1.0-4.8) Monocytes # (Auto) 0.6 x10^3/uL (0.0-1.1) Eosinophils # (Auto) 0.1 x10^3/uL (0.0-0.7) Basophils # (Auto) 0.0 x10^3/uL (0.0-0.2) Sodium Level 138 mmol/L (136-145) Potassium Level 4.4 mmol/L (3.5-5.1) Chloride Level 107 mmol/L (98-107) Carbon Dioxide Level 20 mmol/L (21-32) Anion Gap 11 (6-14) Blood Urea Nitrogen 68 mg/dL (8-26) Creatinine 3.4 mg/dL (0.7-1.3) Estimated GFR (Cockcroft-Gault) 20.9 Glucose Level 236 mg/dL (70-99) Calcium Level 7.6 mg/dL (8.5-10.1) Phosphorus Level 3.5 mg/dL (2.6-4.7) Magnesium Level 2.7 mg/dL (1.8-2.4) Arterial Blood pH 7.32 (7.35-7.45) Arterial Blood pCO2 at Patient Temp 38 mmHg (35-46) Arterial Blood pO2 at Patient Temp 77 mmHg (65-108) Arterial Blood HCO3 19 mmol/L (21-28) Arterial Blood Base Excess -7 mmol/L (-3-3) FiO2 60 Vancomycin Level Trough 14.2 mcg/mL (10.0-20.0) Vancomycin Last Dose Date 12/17/19 Vancomycin Last Dose Time 2300 Micro Micro Microbiology 12/09/19 Blood Culture - Final, Complete NO GROWTH AFTER 5 DAYS Review of Systems Constitutional: yes: unresponsive, other (ON THE VENT) Physical Exam General Appearance: other (SEDATED) Skin: warm Respiratory: ventilator (Mode:A/C), decreased breath sounds Heart: S1S2 Abdomen: bowel sounds present Genitourinary: bladder flat Extremities: pulses present Neurology: other (SEDATED) Musculoskeletal: Other (SEDATED ON THE VENT) Assessment Assessment IMP BIA-WORSE CR BACK UP TO 3.4 MET ACIDOSIS CKD STAGE 3 WITH BASELINE CR OF 2.0 ACUTE RESP [id number] FIO2 OF 60% PNEUMONIA COVID - 19 SEPSIS PLAN HYDRATION HCO3 GTT PRESSORS NEEDED ANTIBIOTICS HOLD DIURETICS CONT TO HOLD YONG-I CONT TPN ON ARANESP VENT SUPPORT WILL FOLLOW MARGE TRIPATHI MD Dec 19, 2019 11:09
[2019-12-19] MEDS: ENOXAPARIN 30 MG/0.3 ML SYRINGE. SQ SCH (12:51)
[2019-12-19] MEDS: TPN PER PHARMACY MC PRN (14:04)
--- NOTE | 2019-12-19 14:19 | PDOC ---
PROGRESS NOTES Chief Complaint Chief Complaint Covid 19 positive ARDS Respiratory failure requiring intubation and mechanical ventilation Normal anion gap acidosis Hypocalcemia Severe protein calorie malnutrition Normocytic anemia Pneumonia CKD stage 4 Debility Weakness Fevers Arthritis, diabetes, back surgery, knee surgery and thyroid surgery. Plan; Patient receiving vancomycin plaquenil and azithromycin continue supportive measures vent management as per critical manager critical care unit discussed discontinuing shoshana inhibitor in light of his renal dysfunction with nephrology surgical consultant, recommendations greatly appreciated prognosis guarded DVT prohpylaxis: lovenox COVID-19 CRITERIA: The patient was evaluated during the global COVID-19 pandemic, and that diagnosis was suspected/considered upon their initial presentation. Their evaluation, treatment and testing was consistent with current guidelines for patients who present with complaints or symptoms that may be related to COVID-19. History of Present Illness History of Present Illness [id number] Patient seen and examined in the ICU He remains mechanically ventilated Pressure control 65% I helped the nurses roll him onto his prone position Chart reviewed Discussed with RT [id number] Patient seen and examined in the ICU He remains critically ill and on the vent Sedated with propofol and fentanyl On a levo fed drip In respiratory isolation because of Covid positive testing [id number] Patient seen and examined in the ICU He remains intubated and mechanically ventilated He is on pressure control was 65% FiO2 Has a levo fed drip Sedated with propofol and fentanyl Covid 19 testing is now positive Chart reviewed Discussed with RN He is critically ill [id number] Patient seen and examined in the ICU He is mechanically ventilated then we just switched him over to pressure control 75% FiO2 Instrument Adjuster ordered paralytics as the patient has not interfacing with the vent well Chart reviewed Discussed with RN He is critically ill [id number] Patient seen and examined now transferred to the ICU In respiratory isolation and intubated On 100% oxygen assist-control He is extremely critically ill Chart reviewed Discussed with RN [id number] Patient seen and examined He is still confused and weak Discussed with RN Patient coughed a little bit with some water We are going to get speech therapy eval Also starting some IV PPN Continue in physical therapy occupational therapy and current medications [id number] Patient seen and examined Chart reviewed Discussed with RN He looks a little better today but very weak Suspect he is going to need nursing home? [id number] Patient seen and examined Chart reviewed discussed with RN Spoke with his daughter Nayeli Vitals Vitals Vital Signs Date Time Temp Pulse Resp B/P (MAP) Pulse Ox O2 Delivery O2 Flow Rate FiO2 12/19/19 14:12 72 14 123/46 (71) 97 12/19/19 12:00 98.0 98.0 12/19/19 12:00 Mechanical Ventilator 12/19/19 10:32 15.0 Physical Exam General: Other (bucking the vent, we just ordered some paralytics) Heart: Regular rate, Normal S1, Normal S2, No murmurs, Other (tachycardic at 102 bpm distant S1-S2) Lungs: Other (coarse breath sounds) Abdomen: Soft Extremities: No clubbing, No cyanosis Skin: No rashes, No breakdown Labs LABS Laboratory Tests Test 12/19/19 06:50 12/19/19 08:00 12/19/19 10:10 White Blood Count 8.8 x10^3/uL (4.0-11.0) Red Blood Count 2.68 x10^6/uL (4.30-5.70) Hemoglobin 8.0 g/dL (13.0-17.5) Hematocrit 24.4 % (39.0-53.0) Mean Corpuscular Volume 91 fL (79-100) Mean Corpuscular Hemoglobin 30 pg (25-35) Mean Corpuscular Hemoglobin Concent 33 g/dL (31-37) Red Cell Distribution Width 17.4 % (11.5-14.5) Platelet Count 105 x10^3/uL (140-400) Neutrophils (%) (Auto) 88 % (31-73) Lymphocytes (%) (Auto) 4 % (24-48) Monocytes (%) (Auto) 7 % (0-9) Eosinophils (%) (Auto) 1 % (0-3) Basophils (%) (Auto) 0 % (0-3) Neutrophils # (Auto) 7.7 x10^3/uL (1.8-7.7) Lymphocytes # (Auto) 0.3 x10^3/uL (1.0-4.8) Monocytes # (Auto) 0.6 x10^3/uL (0.0-1.1) Eosinophils # (Auto) 0.1 x10^3/uL (0.0-0.7) Basophils # (Auto) 0.0 x10^3/uL (0.0-0.2) Sodium Level 138 mmol/L (136-145) Potassium Level 4.4 mmol/L (3.5-5.1) Chloride Level 107 mmol/L (98-107) Carbon Dioxide Level 20 mmol/L (21-32) Anion Gap 11 (6-14) Blood Urea Nitrogen 68 mg/dL (8-26) Creatinine 3.4 mg/dL (0.7-1.3) Estimated GFR (Cockcroft-Gault) 20.9 Glucose Level 236 mg/dL (70-99) Calcium Level 7.6 mg/dL (8.5-10.1) Phosphorus Level 3.5 mg/dL (2.6-4.7) Magnesium Level 2.7 mg/dL (1.8-2.4) Arterial Blood pH 7.32 (7.35-7.45) Arterial Blood pCO2 at Patient Temp 38 mmHg (35-46) Arterial Blood pO2 at Patient Temp 77 mmHg (65-108) Arterial Blood HCO3 19 mmol/L (21-28) Arterial Blood Base Excess -7 mmol/L (-3-3) FiO2 60 Vancomycin Level Trough 14.2 mcg/mL (10.0-20.0) Vancomycin Last Dose Date 12/17/19 Vancomycin Last Dose Time 2300 Assessment and Plan Assessmemt and Plan Problems Medical Problems: (1) Bilateral pneumonia Status: Acute (2) Fever Status: Acute (3) Hypoglycemia Status: Acute (4) Renal insufficiency Status: Acute (5) Suspected 2019 novel coronavirus infection Status: Acute (6) Weakness Status: Acute Comment Review of Relevant I have reviewed the following items sammie (where applicable) has been applied. Labs Laboratory Tests Test 12/17/19 17:28 12/18/19 05:05 12/18/19 09:45 12/19/19 06:50 Glucose (Fingerstick) 228 mg/dL (70-99) White Blood Count 9.0 x10^3/uL (4.0-11.0) 8.8 x10^3/uL (4.0-11.0) Red Blood Count 2.83 x10^6/uL (4.30-5.70) 2.68 x10^6/uL (4.30-5.70) Hemoglobin 8.4 g/dL (13.0-17.5) 8.0 g/dL (13.0-17.5) Hematocrit 26.0 % (39.0-53.0) 24.4 % (39.0-53.0) Mean Corpuscular Volume 92 fL (79-100) 91 fL (79-100) Mean Corpuscular Hemoglobin 30 pg (25-35) 30 pg (25-35) Mean Corpuscular Hemoglobin Concent 32 g/dL (31-37) 33 g/dL (31-37) Red Cell Distribution Width 17.1 % (11.5-14.5) 17.4 % (11.5-14.5) Platelet Count 110 x10^3/uL (140-400) 105 x10^3/uL (140-400) Neutrophils (%) (Auto) 90 % (31-73) 88 % (31-73) Lymphocytes (%) (Auto) 2 % (24-48) 4 % (24-48) Monocytes (%) (Auto) 6 % (0-9) 7 % (0-9) Eosinophils (%) (Auto) 1 % (0-3) 1 % (0-3) Basophils (%) (Auto) 0 % (0-3) 0 % (0-3) Neutrophils # (Auto) 8.1 x10^3/uL (1.8-7.7) 7.7 x10^3/uL (1.8-7.7) Lymphocytes # (Auto) 0.2 x10^3/uL (1.0-4.8) 0.3 x10^3/uL (1.0-4.8) Monocytes # (Auto) 0.6 x10^3/uL (0.0-1.1) 0.6 x10^3/uL (0.0-1.1) Eosinophils # (Auto) 0.1 x10^3/uL (0.0-0.7) 0.1 x10^3/uL (0.0-0.7) Basophils # (Auto) 0.0 x10^3/uL (0.0-0.2) 0.0 x10^3/uL (0.0-0.2) Segmented Neutrophils % 81 % (35-66) Band Neutrophils % 10 % (0-9) Lymphocytes % 1 % (24-48) Monocytes % 7 % (0-10) Eosinophils % 1 % (0-5) Platelet Estimate Decreased (ADEQUATE) Polychromasia Slight Anisocytosis Slight Ovalocytes Few Sodium Level 142 mmol/L (136-145) 138 mmol/L (136-145) Potassium Level 4.8 mmol/L (3.5-5.1) 4.4 mmol/L (3.5-5.1) Chloride Level 110 mmol/L (98-107) 107 mmol/L (98-107) Carbon Dioxide Level 19 mmol/L (21-32) 20 mmol/L (21-32) Anion Gap 13 (6-14) 11 (6-14) Blood Urea Nitrogen 60 mg/dL (8-26) 68 mg/dL (8-26) Creatinine 3.1 mg/dL (0.7-1.3) 3.4 mg/dL (0.7-1.3) Estimated GFR (Cockcroft-Gault) 23.2 20.9 Glucose Level 203 mg/dL (70-99) 236 mg/dL (70-99) Calcium Level 7.6 mg/dL (8.5-10.1) 7.6 mg/dL (8.5-10.1) Phosphorus Level 3.7 mg/dL (2.6-4.7) 3.5 mg/dL (2.6-4.7) Magnesium Level 2.8 mg/dL (1.8-2.4) 2.7 mg/dL (1.8-2.4) O2 Saturation 93 % (92-99) Arterial Blood pH 7.31 (7.35-7.45) Arterial Blood pCO2 at Patient Temp 37 mmHg (35-46) Arterial Blood pO2 at Patient Temp 73 mmHg (65-108) Arterial Blood HCO3 18 mmol/L (21-28) Arterial Blood Base Excess -8 mmol/L (-3-3) FiO2 60 Test 12/19/19 08:00 12/19/19 10:10 Arterial Blood pH 7.32 (7.35-7.45) Arterial Blood pCO2 at Patient Temp 38 mmHg (35-46) Arterial Blood pO2 at Patient Temp 77 mmHg (65-108) Arterial Blood HCO3 19 mmol/L (21-28) Arterial Blood Base Excess -7 mmol/L (-3-3) FiO2 60 Vancomycin Level Trough 14.2 mcg/mL (10.0-20.0) Vancomycin Last Dose Date 12/17/19 Vancomycin Last Dose Time 2300 Laboratory Tests Test 12/19/19 06:50 12/19/19 08:00 12/19/19 10:10 White Blood Count 8.8 x10^3/uL (4.0-11.0) Red Blood Count 2.68 x10^6/uL (4.30-5.70) Hemoglobin 8.0 g/dL (13.0-17.5) Hematocrit 24.4 % (39.0-53.0) Mean Corpuscular Volume 91 fL (79-100) Mean Corpuscular Hemoglobin 30 pg (25-35) Mean Corpuscular Hemoglobin Concent 33 g/dL (31-37) Red Cell Distribution Width 17.4 % (11.5-14.5) Platelet Count 105 x10^3/uL (140-400) Neutrophils (%) (Auto) 88 % (31-73) Lymphocytes (%) (Auto) 4 % (24-48) Monocytes (%) (Auto) 7 % (0-9) Eosinophils (%) (Auto) 1 % (0-3) Basophils (%) (Auto) 0 % (0-3) Neutrophils # (Auto) 7.7 x10^3/uL (1.8-7.7) Lymphocytes # (Auto) 0.3 x10^3/uL (1.0-4.8) Monocytes # (Auto) 0.6 x10^3/uL (0.0-1.1) Eosinophils # (Auto) 0.1 x10^3/uL (0.0-0.7) Basophils # (Auto) 0.0 x10^3/uL (0.0-0.2) Sodium Level 138 mmol/L (136-145) Potassium Level 4.4 mmol/L (3.5-5.1) Chloride Level 107 mmol/L (98-107) Carbon Dioxide Level 20 mmol/L (21-32) Anion Gap 11 (6-14) Blood Urea Nitrogen 68 mg/dL (8-26) Creatinine 3.4 mg/dL (0.7-1.3) Estimated GFR (Cockcroft-Gault) 20.9 Glucose Level 236 mg/dL (70-99) Calcium Level 7.6 mg/dL (8.5-10.1) Phosphorus Level 3.5 mg/dL (2.6-4.7) Magnesium Level 2.7 mg/dL (1.8-2.4) Arterial Blood pH 7.32 (7.35-7.45) Arterial Blood pCO2 at Patient Temp 38 mmHg (35-46) Arterial Blood pO2 at Patient Temp 77 mmHg (65-108) Arterial Blood HCO3 19 mmol/L (21-28) Arterial Blood Base Excess -7 mmol/L (-3-3) FiO2 60 Vancomycin Level Trough 14.2 mcg/mL (10.0-20.0) Vancomycin Last Dose Date 12/17/19 Vancomycin Last Dose Time 2300 Microbiology 12/17/19 Blood Culture - Preliminary, Resulted NO GROWTH AFTER 1 DAY Medications Current Medications Acetaminophen (Tylenol) 1,000 mg 1X ONCE PO ; Start 12/09/19 at 12:15; Stop 12/09/19 at 12:16; Status DC Sodium Chloride 1,000 ml @ 1,000 mls/hr Q1H IV Last administered on 12/09/19at 13:48; Start 12/09/19 at 12:01; Stop 12/09/19 at 13:00; Status DC Ceftriaxone Sodium (Rocephin) 1 gm 1X ONCE IVP Last administered on 12/09/19at 13:49; Start 12/09/19 at 13:30; Stop 12/09/19 at 13:31; Status DC Vancomycin HCl 250 ml @ 250 mls/hr 1X ONCE IV Last administered on 12/09/19at 13:49; Start 12/09/19 at 13:30; Stop 12/09/19 at 14:29; Status DC Dextrose (Dextrose 50%-Water Syringe) 12.5 gm 1X ONCE IV Last administered on 12/09/19at 13:48; Start 12/09/19 at 13:45; Stop 12/09/19 at 13:46; Status DC Sodium Polystyrene Sulfonate (Kayexalate) 15 gm 1X ONCE PO Last administered on 12/09/19at 14:35; Start 12/09/19 at 13:45; Stop 12/09/19 at 13:46; Status DC Sodium Chloride 1,000 ml @ 150 mls/hr Q6H40M IV Last administered on 12/10/19at 09:00; Start 12/09/19 at 13:46; Stop 12/10/19 at 13:45; Status DC Dextrose (Dextrose 50%-Water Syringe) 25 gm 1X ONCE IV Last administered on 12/09/19at 15:09; Start 12/09/19 at 15:00; Stop 12/09/19 at 15:02; Status DC Acetaminophen (Tylenol) 1,000 mg PRN Q6HRS PRN PO FEVER Last administered on 12/11/19at 14:32; Start 12/09/19 at 15:30 Acetaminophen (Tylenol) 1,000 mg PRN Q6HRS PRN PO FEVER; Start 12/09/19 at 15:30; Stop 12/09/19 at 18:00; Status DC Dextrose (Dextrose 50%-Water Syringe) 25 gm 1X ONCE IV Last administered on 12/09/19at 22:38; Start 12/09/19 at 22:30; Stop 12/09/19 at 22:31; Status DC Dextrose (Dextrose 50%-Water Syringe) 12.5 gm PRN Q15MIN PRN IV SEE COMMENTS Last administered on 12/12/19at 21:21; Start 12/10/19 at 00:30 Allopurinol (Zyloprim) 100 mg DAILY PO Last administered on 12/19/19 09:30; Start 12/10/19 at 17:00 Aspirin (Ecotrin) 81 mg DAILY PO Last administered on 12/19/19 09:31; Start 12/10/19 at 17:00 Ferrous Sulfate (Feosol) 325 mg DAILY08 PO Last administered on 12/19/19 09:29; Start 12/10/19 at 17:00 Fluticasone Propionate (Flonase) 2 spray DAILY NS Last administered on 12/16/19at 09:00; Start 12/11/19 at 09:00 Glipizide (Glucotrol) 2.5 mg DAILYAC PO Last administered on 12/19/19 09:30; Start 12/11/19 at 07:30 Glipizide (Glucotrol) 5 mg DAILYWSUP PO Last administered on 12/10/19at 17:18; Start 12/10/19 at 17:00; Stop 12/11/19 at 08:03; Status DC Hydrochlorothiazide (Hydrodiuril) 25 mg DAILY PO Last administered on 12/16/19 09:04; Start 12/10/19 at 17:00; Stop 12/16/19 at 12:52; Status DC Levothyroxine Sodium (Synthroid) 50 mcg DAILY06 PO Last administered on 12/19/19 06:24; Start 12/11/19 at 06:00 Simvastatin (Zocor) 20 mg QHS PO Last administered on 12/11/19at 21:31; Start 12/10/19 at 21:00; Stop 12/13/19 at 11:28; Status DC Tamsulosin HCl (Flomax) 0.4 mg DAILY PO Last administered on 12/19/19 09:30; Start 12/10/19 at 17:00 Warfarin Sodium (Coumadin) 3 mg 1X PO ; Start 12/10/19 at 16:00; Stop 12/10/19 at 16:44; Status DC Amlodipine Besylate (Norvasc) 5 mg DAILY PO Last administered on 12/19/19at 09:29; Start 12/10/19 at 17:00 Non-Formulary Medication (Carboxymethylcellulose Sodium (Lubricant Eye Drops)) 1 each HS OP ; Start 12/10/19 at 21:00; Status UNV Pantoprazole Sodium (Protonix) 40 mg DAILYAC PO Last administered on 12/16/19at 09:04; Start 12/10/19 at 16:30; Stop 12/17/19 at 07:44; Status DC Artificial Tears (Artificial Tears) 1 drop [id number] OU ; Start 12/10/19 at 17:00; Stop 12/10/19 at 16:44; Status DC Cetirizine HCl (ZyrTEC) 10 mg DAILY PO Last administered on 12/19/19at 09:29; Start 12/10/19 at 17:00 Warfarin Sodium (Coumadin Per Physician) 1 each PRN DAILY PRN MC SEE COMMENTS; Start 12/10/19 at 16:30; Stop 12/10/19 at 16:44; Status DC Ceftriaxone Sodium (Rocephin) 1 gm Q24H IVP Last administered on 12/12/19at 17:24; Start 12/10/19 at 18:00; Stop 12/13/19 at 09:07; Status DC Azithromycin 250 ml @ 250 mls/hr 1X ONCE IV ; Start 12/10/19 at 16:30; Stop 12/10/19 at 17:29; Status UNV Lisinopril (Prinivil) 10 mg DAILY PO Last administered on 12/18/19at 10:03; Start 12/10/19 at 17:00; Stop 12/18/19 at 11:12; Status DC Azithromycin 500 mg/Sodium Chloride 250 ml @ 250 mls/hr Q24H IV Last administered on 12/12/19at 17:21; Start 12/10/19 at 18:00; Stop 12/13/19 at 11:18; Status DC Carbidopa/Levodopa (Sinemet 25/100) 2 tab TID PO Last administered on 12/19/19at 12:52; Start 12/10/19 at 17:00 Lactobacillus Rhamnosus (Culturelle) 1 cap BID PO Last administered on 12/14/19at 20:48; Start 12/11/19 at 21:00; Stop 12/15/19 at 08:34; Status DC Acetaminophen (Tylenol Supp) 650 mg PRN Q6HRS PRN SC MILD PAIN / TEMP Last administered on 12/15/19at 17:55; Start 12/12/19 at 07:45 Amino Acids/ Glycerin/ Electrolytes 1,000 ml @ 50 mls/hr Q20H IV Last administered on 12/15/19at 21:47; Start 12/12/19 at 10:15; Stop 12/16/19 at 21: 59; Status DC Sodium Chloride 1,000 ml @ 75 mls/hr [id number] IV Last administered on 12/17/19at 09:22; Start 12/12/19 at 11:00; Stop 12/17/19 at 11:52; Status DC Enoxaparin Sodium (Lovenox 30mg Syringe) 30 mg Q24H SQ Last administered on 12/19/19at 12:51; Start 12/12/19 at 12:00 Hydroxychloroquine Sulfate (Plaquenil) 400 mg BID PO Last administered on 12/14/19at 20:48; Start 12/13/19 at 09:00; Stop 12/14/19 at 21:01; Status DC Hydroxychloroquine Sulfate (Plaquenil) 200 mg BID PO Last administered on at 22:59; Start 12/15/19 at 09:00; Stop 12/17/19 at 21:01; Status DC Piperacillin Sod/ Tazobactam Sod 4.5 gm/Sodium Chloride 100 ml @ 200 mls/hr Q6HRS IV ; Start 12/13/19 at 12:00; Status UNV Vancomycin HCl (Vanco Per Pharmacy) 1 each PRN DAILY PRN MC SEE COMMENTS Last administered on 12/18/19at 10:49; Start 12/13/19 at 09:00 Piperacillin Sod/ Tazobactam Sod 3.375 gm/Sodium Chloride 50 ml @ 100 mls/hr Q6HRS IV Last administered on 12/19/19at 11:39; Start 12/13/19 at 10:00; Stop 12/19/19 at 12:21; Status DC Vancomycin HCl 1.5 gm/Sodium Chloride 500 ml @ 250 mls/hr 1X ONCE IV Last administered on 12/13/19at 11:11; Start 12/13/19 at 10:00; Stop 12/13/19 at 11:59; Status DC Fentanyl Citrate 30 ml @ 2.5 mls/hr CONT PRN IV SEE PROTOCOL Last administered on 12/19/19at 10:02; Start 12/13/19 at 10:15 Chlorhexidine Gluconate (Peridex) 15 ml BID MM Last administered on 12/19/19at 09:33; Start 12/13/19 at 21:00 Morphine Sulfate (Morphine Sulfate) 2 mg PRN Q1HR PRN IV SEE COMMENTS.; Start 12/13/19 at 10:15 Morphine Sulfate (Morphine Sulfate) 4 mg PRN Q1HR PRN IV SEE COMMENTS. Last administered on 12/13/19at 12:40; Start 12/13/19 at 10:15 Propofol 100 ml @ 1.05 mls/hr CONT PRN IV SEE I/O RECORD Last administered on 12/16/19at 05:16; Start 12/13/19 at 10:30 Propofol 100 ml @ As Directed STK-MED ONCE IV ; Start 12/13/19 at 08:48; Stop 12/13/19 at 14:11; Status DC Propofol 100 ml @ As Directed STK-MED ONCE IV ; Start 12/13/19 at 09:33; Stop 12/13/19 at 14:12; Status DC Norepinephrine Bitartrate 8 mg/ Dextrose 258 ml @ 13.545 mls/ hr CONT PRN IV PER PROTOCOL Last administered on 12/16/19at 05:15; Start 12/13/19 at 15:30 Vancomycin HCl (Vancomycin Random Level) 1 each 1X ONCE MC Last administered on 12/14/19at 04:52; Start 12/14/19 at 05:00; Stop 12/14/19 at 05:01; Status DC Vancomycin HCl 1 gm/Sodium Chloride 250 ml @ 250 mls/hr Q48H IV Last administered on 12/16/19at 10:42; Start 12/14/19 at 09:00; Stop 12/16/19 at 12:01; Status DC Vancomycin HCl (Vancomycin Trough Level) 1 each 1X ONCE MC Last administered on 12/16/19at 08:30; Start 12/16/19 at 08:30; Stop 12/16/19 at 08:31; Status DC Vecuronium [place] (Norcuron Bolus) 10 mg STK-MED ONCE IV ; Start 12/14/19 at 12:43; Stop 12/14/19 at 12:43; Status DC Vecuronium [place] (Norcuron Bolus) 6 mg 1X ONCE IV Last administered on 12/14/19at 12:55; Start 12/14/19 at 12:45; Stop 12/14/19 at 12:52; Status DC Azithromycin 250 mg/Sodium Chloride 250 ml @ 250 mls/hr Q24H IV Last administered on 12/19/19at 09:32; Start 12/15/19 at 10:00 Vecuronium [place] (Norcuron Bolus) 10 mg STK-MED ONCE IV ; Start 12/16/19 at 10:45; Stop 12/16/19 at 10:45; Status DC Vecuronium [place] (Norcuron Bolus) 6 mg 1X ONCE IV ; Start 12/16/19 at 11:15; Stop 12/16/19 at 11:16; Status DC Vancomycin HCl 1 gm/Sodium Chloride 250 ml @ 250 mls/hr Q36H IV Last administered on 12/19/19at 11:39; Start 12/17/19 at 23:00 Midazolam HCl 50 mg/Sodium Chloride 50 ml @ 1 mls/hr CONT PRN IV SEE I/O RECORD; Start 12/16/19 at 12:15; Stop 12/16/19 at 12:10; Status DC Midazolam HCl 100 mg/Sodium Chloride 100 ml @ 1 mls/hr CONT PRN IV SEE I/O RECORD Last administered on 12/19/19 05:09; Start 12/16/19 at 12:15 Vancomycin HCl (Vancomycin Trough Level) 1 each 1X ONCE MC Last administered on 12/19/19at 09:47; Start 12/19/19 at 10:30; Stop 12/19/19 at 10:31; Status DC Info (Tpn Per Pharmacy) 1 each PRN DAILY PRN MC SEE COMMENTS Last administered on 12/19/19at 14:04; Start 12/16/19 at 13:00 Sodium Acetate 60 meq/Potassium Chloride 20 meq/ Potassium Phosphate 10 mmol/ Magnesium Sulfate 10 meq/Calcium Gluconate 10 meq/ Multivitamins 10 ml/Chromium/ Copper/Manganese/ Seleni/Zn 0.5 ml/ Total Parenteral Nutrition/Amino Acids/Dextrose 1,200 ml @ 50 mls/hr TPN CONT IV Last administered on 12/16/19at 22:24; Start 12/16/19 at 22:00; Stop 12/17/19 at 21:59; Status DC Pantoprazole Sodium (PROTONIX VIAL for IV PUSH) 40 mg DAILYAC IVP Last administered on 12/19/19 09:30; Start 12/17/19 at 09:00 Vecuronium [place] (Norcuron Bolus) 6 mg Q4HRS PRN IV VENT ASYNCHRONY Last administered on 12/17/19at 11:46; Start 12/17/19 at 08:45 Sodium Bicarbonate (Sodium Bicarb Adult 8.4% Syr) 50 meq 1X ONCE IV Last administered on 12/17/19at 09:31; Start 12/17/19 at 08:45; Stop 12/17/19 at 08:47; Status DC Sodium Bicarbonate 50 meq/Sodium Chloride 1,050 ml @ 100 mls/hr [id number] IV Last administered on 12/19/19 09:32; Start 12/17/19 at 12:30 Sodium Acetate 60 meq/Potassium Chloride 20 meq/ Potassium Phosphate 10 mmol/ Magnesium Sulfate 10 meq/Calcium Gluconate 10 meq/ Multivitamins 10 ml/Chromium/ Copper/Manganese/ Seleni/Zn 0.5 ml/ Total Parenteral Nutrition/Amino Acids/Dextrose/ Fat Emulsion Intravenous 1,200 ml @ 50 mls/hr TPN CONT IV Last administered on 12/17/19at 23:00; Start 12/17/19 at 22:00; Stop 12/18/19 at 21:59; Status DC Ascorbic Acid (Vitamin C) 500 mg DAILY PO Last administered on 12/19/19at 09:29; Start 12/17/19 at 15:00 Zinc Sulfate (Orazinc) 220 mg DAILY PO Last administered on 12/19/19at 09:30; Start 12/17/19 at 15:00 Metoclopramide HCl (Reglan Vial) 10 mg PRN Q6HRS PRN IVP NAUSEA/VOMITING; Start 12/18/19 at 09:15; Stop 12/18/19 at 09:06; Status DC Ondansetron HCl (Zofran) 4 mg PRN Q6HRS PRN IVP NAUSEA/VOMITING Last administered on 12/18/19at 09:55; Start 12/18/19 at 09:15 Sodium Chloride 500 ml @ 500 mls/hr 1X ONCE IV Last administered on 12/18/19at 09:15; Start 12/18/19 at 09:15; Stop 12/18/19 at 10:14; Status DC Metoclopramide HCl (Reglan Vial) 5 mg PRN Q6HRS PRN IVP NAUSEA/VOMITING, 2ND CHOICE Last administered on 12/18/19at 09:55; Start 12/18/19 at 09:15 Sodium Acetate 60 meq/Potassium Chloride 10 meq/ Potassium Phosphate 10 mmol/ Calcium Gluconate 5 meq/ Multivitamins 10 ml/Chromium/ Copper/Manganese/ Seleni/Zn 0.5 ml/ Total Parenteral Nutrition/Amino Acids/Dextrose/ Fat Emulsion Intravenous 1,200 ml @ 50 mls/hr TPN CONT IV Last administered on 12/18/19at 22:25; Start 12/18/19 at 22:00; Stop 12/19/19 at 21:59 Hydroxychloroquine Sulfate (Plaquenil) 200 mg BID PO Last administered on 12/18/19at 22:23; Start 12/18/19 at 11:00; Stop 12/18/19 at 21:01; Status DC Darbepoetin [place] (ARANESP for DIALYSIS PTS) 60 mcg [id number] SQ ; Start 12/19/19 at 21:00 Piperacillin Sod/ Tazobactam Sod 2.25 gm/Sodium Chloride 50 ml @ 100 mls/hr Q6HRS IV ; Start 12/19/19 at 18:00 Sodium Acetate 60 meq/Potassium Chloride 10 meq/ Potassium Phosphate 10 mmol/ Calcium Gluconate 5 meq/ Multivitamins 10 ml/Chromium/ Copper/Manganese/ Seleni/Zn 0.5 ml/ Total Parenteral Nutrition/Amino Acids/Dextrose/ Fat Emulsion Intravenous 1,200 ml @ 50 mls/hr TPN CONT IV ; Start 12/19/19 at 22:00; Stop 12/20/19 at 21:59 Active Scripts Active Reported Carbidopa-Levodopa 25-100 Tab (Carbidopa/Levodopa) 1 Each Tablet 50-200 PO TID Fluticasone Propionate Nasal [place] (Fluticasone Propionate) 16 Gm [place].susp 2 [place] NS DAILY last dos this am next dose tomorrow am (monday) Glipizide 5 Mg Tablet 5 Mg PO DAILYWSUP last dose last night next dose tonight with supper Glipizide 5 Mg Tablet 2.5 Mg PO DAILY last dose this am (next dose tomorrow am monday) Loratadine 10 Mg Tablet 10 Mg PO last dose this am next dose tomorrow am(monday) Omeprazole 20 Mg Capsule.dr 20 Mg PO DAILY last dose this am next dose tomorrow am (monday) Ferrous Sulfate 325 Mg Tablet 1 Tab PO DAILY last dose this am next dose tonight Amlodipine-Benazepril 5-10 Mg (Amlodipine Besylate/Benazepril) 1 Each Capsule 1 Cap PO DAILY last dos this am next dose tomorrow am (monday) Tamsulosin Hcl 0.4 Mg Cap.er.24h 1 Cap PO DAILY last dose this am next dose tomorrow am (monday) Simvastatin 20 Mg Tablet 1 Tab PO QHS last dose last evening next dose tonight Hydrochlorothiazide Tablet (Hydrochlorothiazide) 25 Mg Tablet 1 Tab PO DAILY last dos this am next dose tomorrow am (monday) Allopurinol 100 Mg Tablet 1 Tab PO DAILY last dose this am next dose tomorrow on monday Levothyroxine Sodium 50 Mcg Tablet 1 Tab PO DAILY last dose this am next dose tomorrow am (monday) Vitals/I & O Vital Sign - Last 24 Hours 12/18/19 12/18/19 12/18/19 12/18/19 15:00 15:45 16:00 16:00 Pulse 66 68 Resp 20 B/P (MAP) 112/56 (74) 110/64 (79) Pulse Ox 98 96 98 O2 Delivery Ventilator Ventilator Ventilator Mechanical Ventilator O2 Flow Rate 2.0 12/18/19 12/18/19 12/18/19 12/18/19 17:00 18:28 19:00 19:00 Temp 97.5 97.5 Pulse 66 64 Resp 20 B/P (MAP) 111/54 (73) 122/55 (77) Pulse Ox 98 100 100 O2 Delivery Ventilator Ventilator Ventilator O2 Flow Rate 2.0 12/18/19 12/18/19 12/18/19 12/18/19 20:00 20:00 20:21 20:21 Temp 97.9 97.9 Pulse 72 Resp B/P (MAP) 113/72 (86) Pulse Ox 96 100 100 O2 Delivery Ventilator Mechanical Ventilator O2 Flow Rate 2.0 2.0 12/18/19 12/18/19 12/18/19 12/18/19 20:29 21:00 22:00 23:00 Pulse 73 72 79 Resp B/P (MAP) 117/58 (77) 120/58 (78) 118/65 (82) Pulse Ox 98 97 96 97 O2 Delivery Ventilator Ventilator Ventilator Ventilator 12/18/19 12/19/19 12/19/19 12/19/19 23:22 00:01 00:59 01:00 Temp 97.6 97.6 Pulse 76 68 Resp 15 B/P (MAP) 114/60 (78) 115/51 (72) Pulse Ox 99 99 99 O2 Delivery Ventilator Mechanical Ventilator Ventilator Ventilator 12/19/19 12/19/19 12/19/19 12/19/19 02:00 02:25 02:55 03:00 Pulse 71 66 Resp 21 B/P (MAP) 111/51 (71) 121/58 (79) Pulse Ox 99 99 99 99 O2 Delivery Ventilator Ventilator O2 Flow Rate 2.0 2.0 12/19/19 12/19/19 12/19/19 12/19/19 03:43 04:00 04:00 05:00 Temp 96.4 96.4 Pulse 68 65 Resp 22 B/P (MAP) 111/53 (72) 105/52 (69) Pulse Ox 99 99 93 O2 Delivery Ventilator Ventilator Mechanical Ventilator Ventilator 12/19/19 12/19/19 12/19/19 12/19/19 06:00 07:00 07:30 08:00 Temp 98.4 98.4 Pulse 64 68 68 Resp 22 22 25 B/P (MAP) 107/50 (69) 116/57 (76) 106/48 (67) Pulse Ox 95 95 100 93 O2 Delivery Ventilator Ventilator 12/19/19 12/19/19 12/19/19 12/19/19 08:00 09:00 09:29 10:00 Pulse 69 64 68 Resp 24 23 B/P (MAP) 112/51 (71) 107/50 109/53 (71) Pulse Ox 93 93 O2 Delivery Mechanical Ventilator O2 Flow Rate 2.0 12/19/19 12/19/19 12/19/19 12/19/19 10:02 10:32 11:00 11:30 Pulse 68 Resp 20 25 B/P (MAP) 107/53 (71) Pulse Ox 100 100 93 94 O2 Delivery Ventilator Ventilator O2 Flow Rate 15.0 15.0 12/19/19 12/19/19 12/19/19 12/19/19 12:00 12:00 13:00 14:12 Temp 98.0 98.0 Pulse 70 78 72 Resp 26 23 14 B/P (MAP) 122/77 (92) 131/58 (82) 123/46 (71) Pulse Ox 94 97 97 O2 Delivery Mechanical Ventilator Intake and Output 12/18/19 12/18/19 12/19/19 15:00 23:00 07:00 Intake Total 750 ml 2634 ml 1289.1 ml Output Total 190 ml 335 ml 155 ml Balance 560 ml 2299 ml 1134.1 ml Nutrition Consultation Dietary Evaluation: Recommendations by RD: Dietary education by RD, Increase Calorie Intake, PPN/TPN Comments: Continue w/TPN per current order: 225 g dextrose, 85 g AA, 20 g lipids Per RN (Arjun) pt's are in prone position from 2200 - 0400; would recommend assessing gut function and ability to re-start trying TFs pending GI status. Would recommend starting w/VitalAF@10 ml/hr w/50 ml water flushes q4 hrs (to maintain tube patency) and assess tolerance. Will determine goal rate pending pt tolerance. If pt in reverse transverse position w/bed inclined at least 15 degress, can infuse TFs@10 ml/hr when pt's are in prone position as well Expected Outcomes/Goals: New goal 12/16: Nutrition support to meet >65% estimated nutrition needs while pt remains intubated - met, goal ongoing Interpretation of weight loss: >5% in 1 month Malnutrition Findings: Food and Nutrition Intake (Sev: <50% est energy req 5days Weight Status: Appropriate DANTE CAGE MD Dec 19, 2019 14:19
[2019-12-19] MEDS: PIPERACILLIN/TAZOBACTAM 2.25 GM in IV NORMAL SALINE 50ML 50 ML IV SCH (16:46)
[2019-12-19] MEDS ORDERED: DARBEPOETIN ALFA 60 MCG/0.3 ML DISP.SYRIN. SQ SCH (21:00)
[2019-12-19] MEDS ORDERED: [UNRECOGNIZED DRUG - OTHER] IV SCH ×9 (22:00)
[2019-12-19] MEDS ORDERED: AMINO ACID IV SCH ×9 (22:00)
[2019-12-19] MEDS ORDERED: TOTAL PARENTERAL NUTRITION IV SCH ×9 (22:00)
[2019-12-19] MEDS ORDERED: DEXTROSE 70% IV SCH ×9 (22:00)
[2019-12-20] VITALS (24 sets, daily range): BP systolic 90–124; BP diastolic 42–58
[2019-12-20] MEDS: PIPERACILLIN/TAZOBACTAM 2.25 GM in IV NORMAL SALINE 50ML 50 ML IV SCH ×5 (00:10→23:33)
[2019-12-20] MEDS: MIDAZOLAM HCL 100 MG in IV NORMAL SALINE 100ML 100 ML IV PRN ×4 (01:53→23:36)
[2019-12-20] MEDS: SODIUM BICARBONATE VIAL 50 MEQ in IV 1/2 NORMAL SALINE 1,000 ML IV SCH ×3 (01:54→18:49)
[2019-12-20] MEDS: LEVOTHYROXINE 50 MCG TABLET PO SCH (06:11)
[2019-12-20 07:01] LABS: CALCIUM 7.1 mg/dL (8.5-10.1); CREATININE 3.4 mg/dL (0.7-1.3); GFR 20.9; MAGNESIUM 2.2 mg/dL (1.8-2.4); PHOSPHORUS 3.3 mg/dL (2.6-4.7); POTASSIUM 3.9 mmol/L (3.5-5.1)
--- NOTE | 2019-12-20 07:52 | PDOC ---
PULMONARY PROGRESS NOTES Subjective Pt intubated/ sedated on PC mode, 60%FIO2/ 8 PEEP Had hypothermia last night Vitals Vital Signs Date Time Temp Pulse Resp B/P (MAP) Pulse Ox O2 Delivery O2 Flow Rate FiO2 12/20/19 05:07 95 Ventilator 12/20/19 02:00 59 15 122/55 (77) 12/20/19 01:25 15.0 12/20/19 00:01 94.6 94.6 Comments Visual exam done intubated/ sedated , no obvious JVD, no rash, trace edema Abdomen: Soft Extremities: Other (trace edema, no rash) Skin: Warm Labs Laboratory Tests Test 12/18/19 09:45 12/19/19 06:50 12/19/19 08:00 12/19/19 10:10 O2 Saturation 93 % (92-99) % (92-99) Arterial Blood pH 7.31 (7.35-7.45) 7.32 (7.35-7.45) Arterial Blood pCO2 at Patient Temp 37 mmHg (35-46) 38 mmHg (35-46) Arterial Blood pO2 at Patient Temp 73 mmHg (65-108) 77 mmHg (65-108) Arterial Blood HCO3 18 mmol/L (21-28) 19 mmol/L (21-28) Arterial Blood Base Excess -8 mmol/L (-3-3) -7 mmol/L (-3-3) FiO2 60 60 White Blood Count 8.8 x10^3/uL (4.0-11.0) Red Blood Count 2.68 x10^6/uL (4.30-5.70) Hemoglobin 8.0 g/dL (13.0-17.5) Hematocrit 24.4 % (39.0-53.0) Mean Corpuscular Volume 91 fL (79-100) Mean Corpuscular Hemoglobin 30 pg (25-35) Mean Corpuscular Hemoglobin Concent 33 g/dL (31-37) Red Cell Distribution Width 17.4 % (11.5-14.5) Platelet Count 105 x10^3/uL (140-400) Neutrophils (%) (Auto) 88 % (31-73) Lymphocytes (%) (Auto) 4 % (24-48) Monocytes (%) (Auto) 7 % (0-9) Eosinophils (%) (Auto) 1 % (0-3) Basophils (%) (Auto) 0 % (0-3) Neutrophils # (Auto) 7.7 x10^3/uL (1.8-7.7) Lymphocytes # (Auto) 0.3 x10^3/uL (1.0-4.8) Monocytes # (Auto) 0.6 x10^3/uL (0.0-1.1) Eosinophils # (Auto) 0.1 x10^3/uL (0.0-0.7) Basophils # (Auto) 0.0 x10^3/uL (0.0-0.2) Sodium Level 138 mmol/L (136-145) Potassium Level 4.4 mmol/L (3.5-5.1) Chloride Level 107 mmol/L (98-107) Carbon Dioxide Level 20 mmol/L (21-32) Anion Gap 11 (6-14) Blood Urea Nitrogen 68 mg/dL (8-26) Creatinine 3.4 mg/dL (0.7-1.3) Estimated GFR (Cockcroft-Gault) 20.9 Glucose Level 236 mg/dL (70-99) Calcium Level 7.6 mg/dL (8.5-10.1) Phosphorus Level 3.5 mg/dL (2.6-4.7) Magnesium Level 2.7 mg/dL (1.8-2.4) Vancomycin Level Trough 14.2 mcg/mL (10.0-20.0) Vancomycin Last Dose Date 12/17/19 Vancomycin Last Dose Time 2300 Test 12/19/19 23:02 12/20/19 06:30 Glucose (Fingerstick) 250 mg/dL (70-99) Sodium Level 136 mmol/L (136-145) Potassium Level 3.9 mmol/L (3.5-5.1) Chloride Level 104 mmol/L (98-107) Carbon Dioxide Level 22 mmol/L (21-32) Anion Gap 10 (6-14) Blood Urea Nitrogen 68 mg/dL (8-26) Creatinine 3.4 mg/dL (0.7-1.3) Estimated GFR (Cockcroft-Gault) 20.9 Glucose Level 280 mg/dL (70-99) Calcium Level 7.1 mg/dL (8.5-10.1) Phosphorus Level 3.3 mg/dL (2.6-4.7) Magnesium Level 2.2 mg/dL (1.8-2.4) Triglycerides Level 111 mg/dL (0-150) Laboratory Tests Test 12/19/19 08:00 12/19/19 10:10 12/19/19 23:02 12/20/19 06:30 O2 Saturation % (92-99) Arterial Blood pH 7.32 (7.35-7.45) Arterial Blood pCO2 at Patient Temp 38 mmHg (35-46) Arterial Blood pO2 at Patient Temp 77 mmHg (65-108) Arterial Blood HCO3 19 mmol/L (21-28) Arterial Blood Base Excess -7 mmol/L (-3-3) FiO2 60 Vancomycin Level Trough 14.2 mcg/mL (10.0-20.0) Vancomycin Last Dose Date 12/17/19 Vancomycin Last Dose Time 2300 Glucose (Fingerstick) 250 mg/dL (70-99) Sodium Level 136 mmol/L (136-145) Potassium Level 3.9 mmol/L (3.5-5.1) Chloride Level 104 mmol/L (98-107) Carbon Dioxide Level 22 mmol/L (21-32) Anion Gap 10 (6-14) Blood Urea Nitrogen 68 mg/dL (8-26) Creatinine 3.4 mg/dL (0.7-1.3) Estimated GFR (Cockcroft-Gault) 20.9 Glucose Level 280 mg/dL (70-99) Calcium Level 7.1 mg/dL (8.5-10.1) Phosphorus Level 3.3 mg/dL (2.6-4.7) Magnesium Level 2.2 mg/dL (1.8-2.4) Triglycerides Level 111 mg/dL (0-150) Medications Active Scripts Medications Dose Route/Sig Max Daily Dose Days Date Category Dose Instructions Warfarin Sodium 3 Mg Tablet 1 Tab PO 1X 09/28/17 Reported Fluticasone Propionate Nasal White (Fluticasone Propionate) 16 Gm White.susp 2 White NS DAILY 09/25/17 Reported last dos this am next dose tomorrow am (monday) Lubricant Eye Drops (Propylene Glycol) 10 Ml Drops 10 Ml OP [id number] 09/25/17 Reported last dose after lunch next dose with supper/ bedtime Lubricant Eye Drops (Carboxymethylcellulose Sodium) 1 Each Droperette 1 Each OP HS 09/25/17 Reported last dose last evening next dosetonight provided his own Glipizide 5 Mg Tablet 5 Mg PO DAILYWSUP 07/12/16 Reported last dose last night next dose tonight with supper Glipizide 5 Mg Tablet 2.5 Mg PO DAILY 07/12/16 Reported last dose this am (next dose tomorrow am monday) Loratadine 10 Mg Tablet 10 Mg PO 06/27/16 Reported last dose this am next dose tomorrow am(monday) Omeprazole 20 Mg Capsule.dr 20 Mg PO DAILY 06/27/16 Reported last dose this am next dose tomorrow am (monday) Ferrous Sulfate 325 Mg Tablet 1 Tab PO DAILY 06/27/16 Reported last dose this am next dose tonight Aspir 81 (Aspirin) 81 Mg Tablet.dr 81 Mg PO DAILY 06/27/16 Reported Amlodipine-Benazepril 5-10 Mg (Amlodipine Besylate/Benazepril) 1 Each Capsule 1 Cap PO DAILY 06/27/16 Reported last dos this am next dose tomorrow am (monday) Tamsulosin Hcl 0.4 Mg Cap.er.24h 1 Cap PO DAILY 10/06/14 Reported last dose this am next dose tomorrow am (monday) Simvastatin 20 Mg Tablet 1 Tab PO QHS 10/06/14 Reported last dose last evening next dose tonight Hydrochlorothiazide Tablet (Hydrochlorothiazide) 25 Mg Tablet 1 Tab PO DAILY 10/06/14 Reported last dos this am next dose tomorrow am (monday) Allopurinol 100 Mg Tablet 1 Tab PO DAILY 10/06/14 Reported last dose this am next dose tomorrow on monday Levothyroxine Sodium 50 Mcg Tablet 1 Tab PO DAILY 10/06/14 Reported last dose this am next dose tomorrow am (monday) Comments CXR 4/3 diffuse interstitial infiltrates bilateral, slightly worse Impression . This is an 84-year-old, who presents with comorbidities including debility, diabetes, and chronic kidney disease on top of acute kidney disease with abnormal chest x-ray/ hypoxia/ RF 1. Acute respiratory failure secondary ARDS 2. Pneumonia, COVID-19 positive test (U07.1, COVID-19) with Acute Pneumonia (J12.89, Other viral pneumonia) (If respiratory failure or sepsis present, add as separate assessment) 3. diabetes 4. Abnormal chest x-ray, suspect superimposed bacterial pneumonia (gram-negative gram-positive), underlying viral pneumonia 5. Septic shock, off levoped 6. Protein malnutrition present upon admission 7. Acute kidney injury,worse 8. Metabolic acidosis due to BIA 9. Severe PCM Labs reviewed, chest x-ray reviewed Plan . Continue PC mode,high FIO2 60%, PEEP 8. Follow ABG and make necessary adjustments . PAP in 30' PRN paralytics sedation Prone positioning per protocol. Follow CXR and Labs Empiric hydro-hydroxychloroquine, Zithromax ( dc at day 5) Continue vancomycin and Zosyn DVT GI prophylaxis Nutritional support with TPN worsening renal function, follow renal rec The above was discussed with RN and RT Total cumulative critical care time of 30 minutes reviewing data, labs, chest x- ray, and managing vent prognosis guarded ADITYA FERRIERA MD Dec 20, 2019 07:52
[2019-12-20] MEDS: ENOXAPARIN 30 MG/0.3 ML SYRINGE. SQ SCH (08:29)
[2019-12-20] MEDS: glipiZIDE 5 MG TABLET PO SCH (08:29)
[2019-12-20] MEDS: ZINC SULFATE 220 MG CAPSULE. PO SCH (08:29)
[2019-12-20] MEDS: FERROUS SULFATE 325 MG TABLET. PO SCH (08:29)
[2019-12-20] MEDS: ALLOPURINOL 100 MG TABLET. PO SCH (08:29)
[2019-12-20] MEDS: PANTOPRAZOLE IV PUSH 40 MG VIAL. IVP SCH (08:29)
[2019-12-20] MEDS: CETIRIZINE HCL 10 MG TABLET. PO SCH (08:30)
[2019-12-20] MEDS: CHLORHEXIDINE 0.12% 15 ML MOUTHWASH. MM SCH ×2 (08:30→21:30)
[2019-12-20] MEDS: ASCORBIC ACID 500 MG TABLET PO SCH (08:30)
[2019-12-20] MEDS: FLUTICASONE 50MCG/NASAL SPRAY 16GM BOTTLE. NS SCH (08:30)
[2019-12-20] MEDS: amLODIPine BESYLATE 5 MG TABLET PO SCH (08:30)
[2019-12-20] MEDS: TAMSULOSIN 0.4 MG CAP.ER.24H. PO SCH (08:30)
[2019-12-20] MEDS: CARBIDOPA/LEVODOPA 25/100MG TABLET PO SCH ×3 (08:30→21:31)
[2019-12-20] MEDS: ASPIRIN ENTERIC COATED 81 MG TABLET.DR. PO SCH (08:30)
[2019-12-20 09:38] LABS: BASE EXCESS ABG -6 mmol/L (-3-3); HCO3 ABG 20 mmol/L (21-28); PCO2 ABG 41 mmHg (35-46); PO2 ABG 64 mmHg (65-108); SAT O2 ABG 91 % (92-99)
--- NOTE | 2019-12-20 11:34 | RAD ---
CHEST AP ONLY History: Ventilated patient. Respiratory failure. Comparison: December 18, 2019 Findings: Diffuse initial and alveolar opacities, increased within the mid to lower lungs. Stable endotracheal tube and enteric tube. No pneumothorax. Stable left PICC. Unchanged heart size. Small bilateral pleural effusions. Impression: 1. Diffuse interstitial and alveolar opacities, increased within the mid to lower lungs. 2. Small bilateral pleural effusions. Electronically signed by: Boom Chicas DO (12/20/2019 11:31 AM) [id number]
[2019-12-20 11:59] LABS: FIO2 ABG 60
[2019-12-20] MEDS: ACETAMINOPHEN 500 MG TABLET PO PRN (12:51)
--- NOTE | 2019-12-20 13:00 | PDOC ---
Renal-Progress Notes Subjective Notes Notes INTUBATED History of Present Illness Hx of present illness STABLE Vitals Vitals Vital Signs Date Time Temp Pulse Resp B/P (MAP) Pulse Ox O2 Delivery O2 Flow Rate FiO2 12/20/19 12:23 91 Ventilator 12/20/19 12:00 102.1 81 24 109/49 (69) 102.1 12/20/19 08:57 15.0 Weight Weight [ ] I.O. Intake and Output Intake and Output 12/20/19 07:00 Intake Total 2586 ml Output Total 1040 ml Balance 1546 ml IV Total 2586 ml Output Urine Total 1040 ml Labs Labs Laboratory Tests Test 12/19/19 23:02 12/20/19 06:30 12/20/19 08:30 Glucose (Fingerstick) 250 mg/dL (70-99) Sodium Level 136 mmol/L (136-145) Potassium Level 3.9 mmol/L (3.5-5.1) Chloride Level 104 mmol/L (98-107) Carbon Dioxide Level 22 mmol/L (21-32) Anion Gap 10 (6-14) Blood Urea Nitrogen 68 mg/dL (8-26) Creatinine 3.4 mg/dL (0.7-1.3) Estimated GFR (Cockcroft-Gault) 20.9 Glucose Level 280 mg/dL (70-99) Calcium Level 7.1 mg/dL (8.5-10.1) Phosphorus Level 3.3 mg/dL (2.6-4.7) Magnesium Level 2.2 mg/dL (1.8-2.4) Triglycerides Level 111 mg/dL (0-150) O2 Saturation 91 % (92-99) Arterial Blood pH 7.31 (7.35-7.45) Arterial Blood pCO2 at Patient Temp 41 mmHg (35-46) Arterial Blood pO2 at Patient Temp 64 mmHg (65-108) Arterial Blood HCO3 20 mmol/L (21-28) Arterial Blood Base Excess -6 mmol/L (-3-3) FiO2 60 Micro Micro Microbiology 12/17/19 Blood Culture - Preliminary, Resulted NO GROWTH AFTER 2 DAYS Review of Systems Constitutional: yes: unresponsive, other (ON THE VENT) Physical Exam General Appearance: other (SEDATED) Skin: warm Respiratory: ventilator (Mode:A/C), decreased breath sounds Heart: S1S2 Abdomen: bowel sounds present Genitourinary: bladder flat Extremities: pulses present Neurology: other (SEDATED) Musculoskeletal: Other (SEDATED ON THE VENT) Assessment Assessment IMP BIA-WORSE CR BACK UP TO 3.4-UO DECREASING MET ACIDOSIS CKD STAGE 3 WITH BASELINE CR OF 2.0 ACUTE RESP [id number] FIO2 OF 60% PNEUMONIA COVID - 19 SEPSIS PLAN HYDRATION HCO3 GTT PRESSORS NEEDED ANTIBIOTICS IV LASIX ONCE TODAY CONT TO HOLD YONG-I CONT TPN ON ARANESP VENT SUPPORT WILL FOLLOW D/W DAUGHTER DAVI TODAY. EXPLAINED TO HER THAT IF RENAL FUNCTION WORSENS HE IS NOT A CANDIDATE FOR DIALYSIS ALSO ENCOURAGED HER FOR A DNR STATUS D/W DR FERREIRA AND HE AND AGREE MARGE TRIPATHI MD Dec 20, 2019 13:00
[2019-12-20] MEDS: TPN PER PHARMACY MC PRN (13:28)
--- NOTE | 2019-12-20 15:57 | PDOC ---
PROGRESS NOTES Chief Complaint Chief Complaint Covid 19 positive ARDS Respiratory failure requiring intubation and mechanical ventilation Normal anion gap acidosis Hypocalcemia Severe protein calorie malnutrition Normocytic anemia Pneumonia CKD stage 4 Debility Weakness Fevers Arthritis, diabetes, back surgery, knee surgery and thyroid surgery. Plan; Patient receiving vancomycin plaquenil and azithromycin continue supportive measures vent management as per critical acute care certified nursing assistant discussed discontinuing shoshana inhibitor in light of his renal dysfunction with nephrology art consultant, recommendations greatly appreciated prognosis guarded DVT prohpylaxis: lovenox COVID-19 CRITERIA: The patient was evaluated during the global COVID-19 pandemic, and that diagnosis was suspected/considered upon their initial presentation. Their evaluation, treatment and testing was consistent with current guidelines for patients who present with complaints or symptoms that may be related to COVID-19. History of Present Illness History of Present Illness 12/20/2019 Patient seen and examined in the ICU He remains mechanically ventilated aC 60% FiO2 and 10 PEEP no acute events reported overnight. Chart reviewed Discussed with RN Vitals Vitals Vital Signs Date Time Temp Pulse Resp B/P (MAP) Pulse Ox O2 Delivery O2 Flow Rate FiO2 12/20/19 15:41 92 Ventilator 12/20/19 15:00 80 20 90/42 (58) 15.0 12/20/19 12:00 102.1 102.1 Physical Exam General: Other (bucking the vent, we just ordered some paralytics) Heart: Regular rate, Normal S1, Normal S2, No murmurs, Other (tachycardic at 102 bpm distant S1-S2) Abdomen: Soft Extremities: No clubbing, No cyanosis Skin: No rashes, No breakdown Labs LABS Laboratory Tests Test 12/19/19 23:02 12/20/19 06:30 12/20/19 08:30 Glucose (Fingerstick) 250 mg/dL (70-99) Sodium Level 136 mmol/L (136-145) Potassium Level 3.9 mmol/L (3.5-5.1) Chloride Level 104 mmol/L (98-107) Carbon Dioxide Level 22 mmol/L (21-32) Anion Gap 10 (6-14) Blood Urea Nitrogen 68 mg/dL (8-26) Creatinine 3.4 mg/dL (0.7-1.3) Estimated GFR (Cockcroft-Gault) 20.9 Glucose Level 280 mg/dL (70-99) Calcium Level 7.1 mg/dL (8.5-10.1) Phosphorus Level 3.3 mg/dL (2.6-4.7) Magnesium Level 2.2 mg/dL (1.8-2.4) Triglycerides Level 111 mg/dL (0-150) O2 Saturation 91 % (92-99) Arterial Blood pH 7.31 (7.35-7.45) Arterial Blood pCO2 at Patient Temp 41 mmHg (35-46) Arterial Blood pO2 at Patient Temp 64 mmHg (65-108) Arterial Blood HCO3 20 mmol/L (21-28) Arterial Blood Base Excess -6 mmol/L (-3-3) FiO2 60 Assessment and Plan Assessmemt and Plan Problems Medical Problems: (1) Bilateral pneumonia Status: Acute (2) Fever Status: Acute (3) Hypoglycemia Status: Acute (4) Renal insufficiency Status: Acute (5) Suspected 2019 novel coronavirus infection Status: Acute (6) Weakness Status: Acute Comment Review of Relevant I have reviewed the following items sammie (where applicable) has been applied. Labs Laboratory Tests Test 12/19/19 06:50 12/19/19 08:00 12/19/19 10:10 12/19/19 23:02 White Blood Count 8.8 x10^3/uL (4.0-11.0) Red Blood Count 2.68 x10^6/uL (4.30-5.70) Hemoglobin 8.0 g/dL (13.0-17.5) Hematocrit 24.4 % (39.0-53.0) Mean Corpuscular Volume 91 fL (79-100) Mean Corpuscular Hemoglobin 30 pg (25-35) Mean Corpuscular Hemoglobin Concent 33 g/dL (31-37) Red Cell Distribution Width 17.4 % (11.5-14.5) Platelet Count 105 x10^3/uL (140-400) Neutrophils (%) (Auto) 88 % (31-73) Lymphocytes (%) (Auto) 4 % (24-48) Monocytes (%) (Auto) 7 % (0-9) Eosinophils (%) (Auto) 1 % (0-3) Basophils (%) (Auto) 0 % (0-3) Neutrophils # (Auto) 7.7 x10^3/uL (1.8-7.7) Lymphocytes # (Auto) 0.3 x10^3/uL (1.0-4.8) Monocytes # (Auto) 0.6 x10^3/uL (0.0-1.1) Eosinophils # (Auto) 0.1 x10^3/uL (0.0-0.7) Basophils # (Auto) 0.0 x10^3/uL (0.0-0.2) Sodium Level 138 mmol/L (136-145) Potassium Level 4.4 mmol/L (3.5-5.1) Chloride Level 107 mmol/L (98-107) Carbon Dioxide Level 20 mmol/L (21-32) Anion Gap 11 (6-14) Blood Urea Nitrogen 68 mg/dL (8-26) Creatinine 3.4 mg/dL (0.7-1.3) Estimated GFR (Cockcroft-Gault) 20.9 Glucose Level 236 mg/dL (70-99) Calcium Level 7.6 mg/dL (8.5-10.1) Phosphorus Level 3.5 mg/dL (2.6-4.7) Magnesium Level 2.7 mg/dL (1.8-2.4) O2 Saturation % (92-99) Arterial Blood pH 7.32 (7.35-7.45) Arterial Blood pCO2 at Patient Temp 38 mmHg (35-46) Arterial Blood pO2 at Patient Temp 77 mmHg (65-108) Arterial Blood HCO3 19 mmol/L (21-28) Arterial Blood Base Excess -7 mmol/L (-3-3) FiO2 60 Vancomycin Level Trough 14.2 mcg/mL (10.0-20.0) Vancomycin Last Dose Date 12/17/19 Vancomycin Last Dose Time 2300 Glucose (Fingerstick) 250 mg/dL (70-99) Test 12/20/19 06:30 12/20/19 08:30 Sodium Level 136 mmol/L (136-145) Potassium Level 3.9 mmol/L (3.5-5.1) Chloride Level 104 mmol/L (98-107) Carbon Dioxide Level 22 mmol/L (21-32) Anion Gap 10 (6-14) Blood Urea Nitrogen 68 mg/dL (8-26) Creatinine 3.4 mg/dL (0.7-1.3) Estimated GFR (Cockcroft-Gault) 20.9 Glucose Level 280 mg/dL (70-99) Calcium Level 7.1 mg/dL (8.5-10.1) Phosphorus Level 3.3 mg/dL (2.6-4.7) Magnesium Level 2.2 mg/dL (1.8-2.4) Triglycerides Level 111 mg/dL (0-150) O2 Saturation 91 % (92-99) Arterial Blood pH 7.31 (7.35-7.45) Arterial Blood pCO2 at Patient Temp 41 mmHg (35-46) Arterial Blood pO2 at Patient Temp 64 mmHg (65-108) Arterial Blood HCO3 20 mmol/L (21-28) Arterial Blood Base Excess -6 mmol/L (-3-3) FiO2 60 Laboratory Tests Test 12/19/19 23:02 12/20/19 06:30 12/20/19 08:30 Glucose (Fingerstick) 250 mg/dL (70-99) Sodium Level 136 mmol/L (136-145) Potassium Level 3.9 mmol/L (3.5-5.1) Chloride Level 104 mmol/L (98-107) Carbon Dioxide Level 22 mmol/L (21-32) Anion Gap 10 (6-14) Blood Urea Nitrogen 68 mg/dL (8-26) Creatinine 3.4 mg/dL (0.7-1.3) Estimated GFR (Cockcroft-Gault) 20.9 Glucose Level 280 mg/dL (70-99) Calcium Level 7.1 mg/dL (8.5-10.1) Phosphorus Level 3.3 mg/dL (2.6-4.7) Magnesium Level 2.2 mg/dL (1.8-2.4) Triglycerides Level 111 mg/dL (0-150) O2 Saturation 91 % (92-99) Arterial Blood pH 7.31 (7.35-7.45) Arterial Blood pCO2 at Patient Temp 41 mmHg (35-46) Arterial Blood pO2 at Patient Temp 64 mmHg (65-108) Arterial Blood HCO3 20 mmol/L (21-28) Arterial Blood Base Excess -6 mmol/L (-3-3) FiO2 60 Microbiology 12/17/19 Blood Culture - Preliminary, Resulted NO GROWTH AFTER 2 DAYS Medications Current Medications Acetaminophen (Tylenol) 1,000 mg 1X ONCE PO ; Start 12/09/19 at 12:15; Stop 12/09/19 at 12:16; Status DC Sodium Chloride 1,000 ml @ 1,000 mls/hr Q1H IV Last administered on 12/09/19at 13:48; Start 12/09/19 at 12:01; Stop 12/09/19 at 13:00; Status DC Ceftriaxone Sodium (Rocephin) 1 gm 1X ONCE IVP Last administered on 12/09/19at 13:49; Start 12/09/19 at 13:30; Stop 12/09/19 at 13:31; Status DC Vancomycin HCl 250 ml @ 250 mls/hr 1X ONCE IV Last administered on 12/09/19at 13:49; Start 12/09/19 at 13:30; Stop 12/09/19 at 14:29; Status DC Dextrose (Dextrose 50%-Water Syringe) 12.5 gm 1X ONCE IV Last administered on 12/09/19at 13:48; Start 12/09/19 at 13:45; Stop 12/09/19 at 13:46; Status DC Sodium Polystyrene Sulfonate (Kayexalate) 15 gm 1X ONCE PO Last administered on 12/09/19at 14:35; Start 12/09/19 at 13:45; Stop 12/09/19 at 13:46; Status DC Sodium Chloride 1,000 ml @ 150 mls/hr Q6H40M IV Last administered on 12/10/19at 09:00; Start 12/09/19 at 13:46; Stop 12/10/19 at 13:45; Status DC Dextrose (Dextrose 50%-Water Syringe) 25 gm 1X ONCE IV Last administered on 12/09/19at 15:09; Start 12/09/19 at 15:00; Stop 12/09/19 at 15:02; Status DC Acetaminophen (Tylenol) 1,000 mg PRN Q6HRS PRN PO FEVER Last administered on 12/20/19at 12:51; Start 12/09/19 at 15:30 Acetaminophen (Tylenol) 1,000 mg PRN Q6HRS PRN PO FEVER; Start 12/09/19 at 15:30; Stop 12/09/19 at 18:00; Status DC Dextrose (Dextrose 50%-Water Syringe) 25 gm 1X ONCE IV Last administered on 12/09/19at 22:38; Start 12/09/19 at 22:30; Stop 12/09/19 at 22:31; Status DC Dextrose (Dextrose 50%-Water Syringe) 12.5 gm PRN Q15MIN PRN IV SEE COMMENTS Last administered on 12/12/19at 21:21; Start 12/10/19 at 00:30 Allopurinol (Zyloprim) 100 mg DAILY PO Last administered on 12/20/19 08:29; Start 12/10/19 at 17:00 Aspirin (Ecotrin) 81 mg DAILY PO Last administered on 12/20/19 08:30; Start 12/10/19 at 17:00 Ferrous Sulfate (Feosol) 325 mg DAILY08 PO Last administered on 12/20/19 08:29; Start 12/10/19 at 17:00 Fluticasone Propionate (Flonase) 2 spray DAILY NS Last administered on 12/16/19at 09:00; Start 12/11/19 at 09:00 Glipizide (Glucotrol) 2.5 mg DAILYAC PO Last administered on 12/20/19 08:29; Start 12/11/19 at 07:30 Glipizide (Glucotrol) 5 mg DAILYWSUP PO Last administered on 12/10/19at 17:18; Start 12/10/19 at 17:00; Stop 12/11/19 at 08:03; Status DC Hydrochlorothiazide (Hydrodiuril) 25 mg DAILY PO Last administered on 12/16/19at 09:04; Start 12/10/19 at 17:00; Stop 12/16/19 at 12:52; Status DC Levothyroxine Sodium (Synthroid) 50 mcg DAILY06 PO Last administered on 0at 06:11; Start 12/11/19 at 06:00 Simvastatin (Zocor) 20 mg QHS PO Last administered on 12/11/19at 21:31; Start 12/10/19 at 21:00; Stop 12/13/19 at 11:28; Status DC Tamsulosin HCl (Flomax) 0.4 mg DAILY PO Last administered on 12/20/19 08:30; Start 12/10/19 at 17:00 Warfarin Sodium (Coumadin) 3 mg 1X PO ; Start 12/10/19 at 16:00; Stop 12/10/19 at 16:44; Status DC Amlodipine Besylate (Norvasc) 5 mg DAILY PO Last administered on 12/20/19at 08:30; Start 12/10/19 at 17:00 Non-Formulary Medication (Carboxymethylcellulose Sodium (Lubricant Eye Drops)) 1 each HS OP ; Start 12/10/19 at 21:00; Status UNV Pantoprazole Sodium (Protonix) 40 mg DAILYAC PO Last administered on 12/16/19at 09:04; Start 12/10/19 at 16:30; Stop 12/17/19 at 07:44; Status DC Artificial Tears (Artificial Tears) 1 drop [id number] OU ; Start 12/10/19 at 17:00; Stop 12/10/19 at 16:44; Status DC Cetirizine HCl (ZyrTEC) 10 mg DAILY PO Last administered on 12/20/19at 08:30; Start 12/10/19 at 17:00 Warfarin Sodium (Coumadin Per Physician) 1 each PRN DAILY PRN MC SEE COMMENTS; Start 12/10/19 at 16:30; Stop 12/10/19 at 16:44; Status DC Ceftriaxone Sodium (Rocephin) 1 gm Q24H IVP Last administered on 12/12/19at 17:24; Start 12/10/19 at 18:00; Stop 12/13/19 at 09:07; Status DC Azithromycin 250 ml @ 250 mls/hr 1X ONCE IV ; Start 12/10/19 at 16:30; Stop 12/10/19 at 17:29; Status UNV Lisinopril (Prinivil) 10 mg DAILY PO Last administered on 12/18/19at 10:03; Start 12/10/19 at 17:00; Stop 12/18/19 at 11:12; Status DC Azithromycin 500 mg/Sodium Chloride 250 ml @ 250 mls/hr Q24H IV Last administered on 12/12/19at 17:21; Start 12/10/19 at 18:00; Stop 12/13/19 at 11:18; Status DC Carbidopa/Levodopa (Sinemet 25/100) 2 tab TID PO Last administered on 12/20/19at 12:51; Start 12/10/19 at 17:00 Lactobacillus Rhamnosus (Culturelle) 1 cap BID PO Last administered on 12/14/19at 20:48; Start 12/11/19 at 21:00; Stop 12/15/19 at 08:34; Status DC Acetaminophen (Tylenol Supp) 650 mg PRN Q6HRS PRN MS MILD PAIN / TEMP Last administered on 12/15/19at 17:55; Start 12/12/19 at 07:45 Amino Acids/ Glycerin/ Electrolytes 1,000 ml @ 50 mls/hr Q20H IV Last administered on 12/15/19at 21:47; Start 12/12/19 at 10:15; Stop 12/16/19 at 21:59; Status DC Sodium Chloride 1,000 ml @ 75 mls/hr [id number] IV Last administered on 12/17/19at 09:22; Start 12/12/19 at 11:00; Stop 12/17/19 at 11:52; Status DC Enoxaparin Sodium (Lovenox 30mg Syringe) 30 mg Q24H SQ Last administered on 12/20/19at 08:29; Start 12/12/19 at 12:00 Hydroxychloroquine Sulfate (Plaquenil) 400 mg BID PO Last administered on at 20:48; Start 12/13/19 at 09:00; Stop 12/14/19 at 21:01; Status DC Hydroxychloroquine Sulfate (Plaquenil) 200 mg BID PO Last administered on 12/17/19at 22:59; Start 12/15/19 at 09:00; Stop 12/17/19 at 21:01; Status DC Piperacillin Sod/ Tazobactam Sod 4.5 gm/Sodium Chloride 100 ml @ 200 mls/hr Q6HRS IV ; Start 12/13/19 at 12:00; Status UNV Vancomycin HCl (Vanco Per Pharmacy) 1 each PRN DAILY PRN MC SEE COMMENTS Last administered on 12/18/19at 10:49; Start 12/13/19 at 09:00; Stop 12/19/19 at 14:26; Status DC Piperacillin Sod/ Tazobactam Sod 3.375 gm/Sodium Chloride 50 ml @ 100 mls/hr Q6HRS IV Last administered on 12/19/19at 11:39; Start 12/13/19 at 10:00; Stop 12/19/19 at 12:21; Status DC Vancomycin HCl 1.5 gm/Sodium Chloride 500 ml @ 250 mls/hr 1X ONCE IV Last administered on 12/13/19at 11:11; Start 12/13/19 at 10:00; Stop 12/13/19 at 11:59; Status DC Fentanyl Citrate 30 ml @ 2.5 mls/hr CONT PRN IV SEE PROTOCOL Last administered on 12/20/19at 08:57; Start 12/13/19 at 10:15 Chlorhexidine Gluconate (Peridex) 15 ml BID MM Last administered on 12/20/19at 08:30; Start 12/13/19 at 21:00 Morphine Sulfate (Morphine Sulfate) 2 mg PRN Q1HR PRN IV SEE COMMENTS.; Start 12/13/19 at 10:15 Morphine Sulfate (Morphine Sulfate) 4 mg PRN Q1HR PRN IV SEE COMMENTS. Last administered on 12/13/19at 12:40; Start 12/13/19 at 10:15 Propofol 100 ml @ 1.05 mls/hr CONT PRN IV SEE I/O RECORD Last administered on 12/16/19at 05:16; Start 12/13/19 at 10:30 Propofol 100 ml @ As Directed STK-MED ONCE IV ; Start 12/13/19 at 08:48; Stop 12/13/19 at 14:11; Status DC Propofol 100 ml @ As Directed STK-MED ONCE IV ; Start 12/13/19 at 09:33; Stop 12/13/19 at 14:12; Status DC Norepinephrine Bitartrate 8 mg/ Dextrose 258 ml @ 13.545 mls/ hr CONT PRN IV PER PROTOCOL Last administered on 12/16/19at 05:15; Start 12/13/19 at 15:30 Vancomycin HCl (Vancomycin Random Level) 1 each 1X ONCE MC Last administered on 12/14/19at 04:52; Start 12/14/19 at 05:00; Stop 12/14/19 at 05:01; Status DC Vancomycin HCl 1 gm/Sodium Chloride 250 ml @ 250 mls/hr Q48H IV Last administered on 12/16/19at 10:42; Start 12/14/19 at 09:00; Stop 12/16/19 at 12:01; Status DC Vancomycin HCl (Vancomycin Trough Level) 1 each 1X ONCE MC Last administered on 12/16/19at 08:30; Start 12/16/19 at 08:30; Stop 12/16/19 at 08:31; Status DC Vecuronium [place] (Norcuron Bolus) 10 mg STK-MED ONCE IV ; Start 12/14/19 at 12:43; Stop 12/14/19 at 12:43; Status DC Vecuronium [place] (Norcuron Bolus) 6 mg 1X ONCE IV Last administered on 12/14/19at 12:55; Start 12/14/19 at 12:45; Stop 12/14/19 at 12:52; Status DC Azithromycin 250 mg/Sodium Chloride 250 ml @ 250 mls/hr Q24H IV Last administered on 12/19/19at 09:32; Start 12/15/19 at 10:00; Stop 12/19/19 at 14:25; Status DC Vecuronium [place] (Norcuron Bolus) 10 mg STK-MED ONCE IV ; Start 12/16/19 at 10:45; Stop 12/16/19 at 10:45; Status DC Vecuronium [place] (Norcuron Bolus) 6 mg 1X ONCE IV ; Start 12/16/19 at 11:15; Stop 12/16/19 at 11:16; Status DC Vancomycin HCl 1 gm/Sodium Chloride 250 ml @ 250 mls/hr Q36H IV Last administered on 12/19/19at 11:39; Start 12/17/19 at 23:00; Stop 12/19/19 at 14:25; Status DC Midazolam HCl 50 mg/Sodium Chloride 50 ml @ 1 mls/hr CONT PRN IV SEE I/O RECORD; Start 12/16/19 at 12:15; Stop 12/16/19 at 12:10; Status DC Midazolam HCl 100 mg/Sodium Chloride 100 ml @ 1 mls/hr CONT PRN IV SEE I/O RECORD Last administered on 12/20/19at 13:18; Start 12/16/19 at 12:15 Vancomycin HCl (Vancomycin Trough Level) 1 each 1X ONCE MC Last administered on 12/19/19at 09:47; Start 12/19/19 at 10:30; Stop 12/19/19 at 10:31; Status DC Info (Tpn Per Pharmacy) 1 each PRN DAILY PRN MC SEE COMMENTS Last administered on 12/20/19at 13:28; Start 12/16/19 at 13:00 Sodium Acetate 60 meq/Potassium Chloride 20 meq/ Potassium Phosphate 10 mmol/ Magnesium Sulfate 10 meq/Calcium Gluconate 10 meq/ Multivitamins 10 ml/Chromium/ Copper/Manganese/ Seleni/Zn 0.5 ml/ Total Parenteral Nutrition/Amino Acids/Dextrose 1,200 ml @ 50 mls/hr TPN CONT IV Last administered on 12/16/19at 22:24; Start 12/16/19 at 22:00; Stop 12/17/19 at 21:59; Status DC Pantoprazole Sodium (PROTONIX VIAL for IV PUSH) 40 mg DAILYAC IVP Last administered on 12/20/19 08:29; Start 12/17/19 at 09:00 Vecuronium [place] (Norcuron Bolus) 6 mg Q4HRS PRN IV VENT ASYNCHRONY Last administered on 12/17/19at 11:46; Start 12/17/19 at 08:45 Sodium Bicarbonate (Sodium Bicarb Adult 8.4% Syr) 50 meq 1X ONCE IV Last administered on 12/17/19 09:31; Start 12/17/19 at 08:45; Stop 12/17/19 at 08:47; Status DC Sodium Bicarbonate 50 meq/Sodium Chloride 1,050 ml @ 100 mls/hr [id number] IV Last administered on 12/20/19 08:28; Start 12/17/19 at 12:30 Sodium Acetate 60 meq/Potassium Chloride 20 meq/ Potassium Phosphate 10 mmol/ Magnesium Sulfate 10 meq/Calcium Gluconate 10 meq/ Multivitamins 10 ml/Chromium/ Copper/Manganese/ Seleni/Zn 0.5 ml/ Total Parenteral Nutrition/Amino Acids/Dextrose/ Fat Emulsion Intravenous 1,200 ml @ 50 mls/hr TPN CONT IV Last administered on 12/17/19at 23:00; Start 12/17/19 at 22:00; Stop 12/18/19 at 21:59; Status DC Ascorbic Acid (Vitamin C) 500 mg DAILY PO Last administered on 12/20/19 08:30; Start 12/17/19 at 15:00 Zinc Sulfate (Orazinc) 220 mg DAILY PO Last administered on 12/20/19 08:29; Start 12/17/19 at 15:00 Metoclopramide HCl (Reglan Vial) 10 mg PRN Q6HRS PRN IVP NAUSEA/VOMITING; Start 12/18/19 at 09:15; Stop 12/18/19 at 09:06; Status DC Ondansetron HCl (Zofran) 4 mg PRN Q6HRS PRN IVP NAUSEA/VOMITING Last administered on 12/18/19at 09:55; Start 12/18/19 at 09:15 Sodium Chloride 500 ml @ 500 mls/hr 1X ONCE IV Last administered on 12/18/19at 09:15; Start 12/18/19 at 09:15; Stop 12/18/19 at 10:14; Status DC Metoclopramide HCl (Reglan Vial) 5 mg PRN Q6HRS PRN IVP NAUSEA/VOMITING, 2ND CHOICE Last administered on 12/18/19at 09:55; Start 12/18/19 at 09:15 Sodium Acetate 60 meq/Potassium Chloride 10 meq/ Potassium Phosphate 10 mmol/ Calcium Gluconate 5 meq/ Multivitamins 10 ml/Chromium/ Copper/Manganese/ Seleni/Zn 0.5 ml/ Total Parenteral Nutrition/Amino Acids/Dextrose/ Fat Emulsion Intravenous 1,200 ml @ 50 mls/hr TPN CONT IV Last administered on 12/18/19at 22:25; Start 12/18/19 at 22:00; Stop 12/19/19 at 21:59; Status DC Hydroxychloroquine Sulfate (Plaquenil) 200 mg BID PO Last administered on 12/18/19at 22:23; Start 12/18/19 at 11:00; Stop 12/18/19 at 21:01; Status DC Darbepoetin [place] (ARANESP for DIALYSIS PTS) 60 mcg [id number] SQ Last administered on 12/19/19at 21:20; Start 12/19/19 at 21:00 Piperacillin Sod/ Tazobactam Sod 2.25 gm/Sodium Chloride 50 ml @ 100 mls/hr Q6HRS IV Last administered on 12/20/19at 13:17; Start 12/19/19 at 18:00 Sodium Acetate 60 meq/Potassium Chloride 10 meq/ Potassium Phosphate 10 mmol/ Calcium Gluconate 5 meq/ Multivitamins 10 ml/Chromium/ Copper/Manganese/ Seleni/Zn 0.5 ml/ Total Parenteral Nutrition/Amino Acids/Dextrose/ Fat Emulsion Intravenous 1,200 ml @ 50 mls/hr TPN CONT IV Last administered on 12/19/19at 21:20; Start 12/19/19 at 22:00; Stop 12/20/19 at 21:59 Linezolid/Dextrose 300 ml @ 300 mls/hr Q12HR IV Last administered on 12/20/19at 09:52; Start 12/19/19 at 21:00 Sodium Acetate 60 meq/Potassium Chloride 10 meq/ Potassium Phosphate 10 mmol/ Calcium Gluconate 5 meq/ Multivitamins 10 ml/Chromium/ Copper/Manganese/ Seleni/Zn 0.5 ml/ Total Parenteral Nutrition/Amino Acids/Dextrose/ Fat Emulsion Intravenous 1,200 ml @ 50 mls/hr TPN CONT IV ; Start 12/20/19 at 22:00; Stop 12/21/19 at 21:59 Active Scripts Active Reported Carbidopa-Levodopa 25-100 Tab (Carbidopa/Levodopa) 1 Each Tablet 50-200 PO TID Fluticasone Propionate Nasal [place] (Fluticasone Propionate) 16 Gm [place].susp 2 [place] NS DAILY last dos this am next dose tomorrow am (monday) Glipizide 5 Mg Tablet 5 Mg PO DAILYWSUP last dose last night next dose tonight with supper Glipizide 5 Mg Tablet 2.5 Mg PO DAILY last dose this am (next dose tomorrow am monday) Loratadine 10 Mg Tablet 10 Mg PO last dose this am next dose tomorrow am(monday) Omeprazole 20 Mg Capsule.dr 20 Mg PO DAILY last dose this am next dose tomorrow am (monday) Ferrous Sulfate 325 Mg Tablet 1 Tab PO DAILY last dose this am next dose tonight Amlodipine-Benazepril 5-10 Mg (Amlodipine Besylate/Benazepril) 1 Each Capsule 1 Cap PO DAILY last dos this am next dose tomorrow am (monday) Tamsulosin Hcl 0.4 Mg Cap.er.24h 1 Cap PO DAILY last dose this am next dose tomorrow am (monday) Simvastatin 20 Mg Tablet 1 Tab PO QHS last dose last evening next dose tonight Hydrochlorothiazide Tablet (Hydrochlorothiazide) 25 Mg Tablet 1 Tab PO DAILY last dos this am next dose tomorrow am (monday) Allopurinol 100 Mg Tablet 1 Tab PO DAILY last dose this am next dose tomorrow on monday Levothyroxine Sodium 50 Mcg Tablet 1 Tab PO DAILY last dose this am next dose tomorrow am (monday) Vitals/I & O Vital Sign - Last 24 Hours 12/19/19 12/19/19 12/19/19 12/19/19 16:00 16:00 16:34 17:00 Temp 98.0 98.0 Pulse 70 70 Resp 16 14 B/P (MAP) 113/49 (70) 118/56 (76) Pulse Ox 97 94 97 O2 Delivery Mechanical Ventilator Ventilator 12/19/19 12/19/19 12/19/19 12/19/19 17:26 17:56 18:00 19:00 Pulse 68 65 Resp 23 15 15 B/P (MAP) 116/58 (77) 117/53 (74) Pulse Ox 94 94 98 98 O2 Delivery Ventilator O2 Flow Rate 15.0 15.0 12/19/19 12/19/19 12/19/19 12/19/19 20:00 20:00 20:24 21:00 Temp 97.6 97.6 Pulse 65 65 Resp 15 15 B/P (MAP) 117/51 (73) 123/56 (78) Pulse Ox 98 98 98 O2 Delivery Mechanical Ventilator Ventilator 12/19/19 12/19/19 12/20/19 12/20/19 22:00 23:00 00:01 00:01 Temp 94.6 94.6 Pulse 72 72 70 Resp 15 15 15 B/P (MAP) 135/58 (83) 128/53 (78) 124/56 (78) Pulse Ox 98 98 98 O2 Delivery Mechanical Ventilator 12/20/19 12/20/19 12/20/19 12/20/19 00:50 01:00 01:25 02:00 Pulse 68 59 Resp 15 15 B/P (MAP) 120/54 (76) 122/55 (77) Pulse Ox 95 98 95 98 O2 Delivery Ventilator O2 Flow Rate 15.0 12/20/19 12/20/19 12/20/19 12/20/19 03:00 04:00 04:00 05:00 Temp 99.5 99.5 Pulse 59 62 68 Resp 15 15 15 B/P (MAP) 122/55 (77) 118/58 (78) 106/55 (72) Pulse Ox 98 98 98 O2 Delivery Mechanical Ventilator 12/20/19 12/20/19 12/20/19 12/20/19 05:07 06:00 07:00 08:00 Temp 100.5 100.5 Pulse 68 68 72 Resp 15 28 26 B/P (MAP) 102/48 (66) 109/51 (70) 104/47 (66) Pulse Ox 95 98 94 94 O2 Delivery Ventilator 12/20/19 12/20/19 12/20/19 12/20/19 08:00 08:25 08:30 08:57 Pulse 59 B/P (MAP) 122/55 Pulse Ox 94 95 O2 Delivery Mechanical Ventilator Ventilator Ventilator O2 Flow Rate 15.0 12/20/19 12/20/19 12/20/19 12/20/19 09:00 10:00 12:00 12:00 Temp 102.1 102.1 Pulse 76 80 81 Resp 24 B/P (MAP) 111/52 (71) 115/52 (73) 109/49 (69) Pulse Ox 91 92 92 O2 Delivery Mechanical Ventilator 12/20/19 12/20/19 12/20/19 12/20/19 12:23 13:00 14:00 15:00 Pulse 80 80 80 Resp 20 B/P (MAP) 112/54 (73) 98/44 (62) 90/42 (58) Pulse Ox 91 92 92 92 O2 Delivery Ventilator Ventilator O2 Flow Rate 15.0 15.0 12/20/19 15:41 Pulse Ox 92 O2 Delivery Ventilator Intake and Output 12/19/19 12/19/19 12/20/19 15:00 23:00 07:00 Intake Total 2586 ml Output Total 400 ml 525 ml 115 ml Balance -400 ml 2061 ml -115 ml Nutrition Consultation Dietary Evaluation: Recommendations by RD: Dietary education by RD, Increase Calorie Intake, PPN/TPN Comments: Continue w/TPN per current order: 225 g dextrose, 85 g AA, 20 g lipids If pt stable and apprpriate for enteral nutrition (no vomiting, no bowel ischemia), would recommend consideration of TFs to support gut function, recommend TFs per following: VitalAF@goal rate 50 ml/hr w/125 ml water flushes q4 hrs. REC TFs@10 ml/hr when pt in prone position w/minimal water flushes (~50 ml q6 hrs or as appropriate per MD) to minimize aspiration risk Expected Outcomes/Goals: New goal 12/16: Nutrition support to meet >65% estimated nutrition needs while pt remains intubated - met, goal ongoing Interpretation of weight loss: >5% in 1 month Malnutrition Findings: Food and Nutrition Intake (Sev: <50% est energy req 5days Weight Status: Appropriate DANTE CAGE MD Dec 20, 2019 15:57
[2019-12-20] MEDS ORDERED: DEXTROSE 50% 25 GM / 50ML DISP.SYRIN. IV PRN ×2 (16:45→17:15)
[2019-12-20] MEDS ORDERED: INSULIN GLARGINE SYRINGE. SQ SCH ×2 (17:00→18:00)
[2019-12-20] MEDS: INSULIN LISPRO 300 UNITS/3 ML VIAL. SQ SCH ×2 (18:00→23:42)
[2019-12-20] MEDS ORDERED: TOTAL PARENTERAL NUTRITION IV SCH ×9 (22:00)
[2019-12-20] MEDS ORDERED: AMINO ACID IV SCH ×9 (22:00)
[2019-12-20] MEDS ORDERED: [UNRECOGNIZED DRUG - OTHER] IV SCH ×9 (22:00)
[2019-12-20] MEDS ORDERED: DEXTROSE 70% IV SCH ×9 (22:00)
[2019-12-21] VITALS (23 sets, daily range): BP systolic 93–137; BP diastolic 38–67
[2019-12-21] MEDS: PIPERACILLIN/TAZOBACTAM 2.25 GM in IV NORMAL SALINE 50ML 50 ML IV SCH ×3 (05:44→16:57)
[2019-12-21] MEDS: LEVOTHYROXINE 50 MCG TABLET PO SCH (05:50)
[2019-12-21] MEDS: INSULIN LISPRO 300 UNITS/3 ML VIAL. SQ SCH ×3 (06:28→17:03)
[2019-12-21 07:06] LABS: CALCIUM 6.9 mg/dL (8.5-10.1); CREATININE 4.2 mg/dL (0.7-1.3); GFR 16.4; MAGNESIUM 2.2 mg/dL (1.8-2.4); PHOSPHORUS 3.6 mg/dL (2.6-4.7); POTASSIUM 3.7 mmol/L (3.5-5.1)
[2019-12-21] MEDS: FLUTICASONE 50MCG/NASAL SPRAY 16GM BOTTLE. NS SCH (07:40)
--- NOTE | 2019-12-21 08:00 | PDOC ---
PULMONARY PROGRESS NOTES Subjective Pt intubated/ sedated on PC mode, 80%FIO2/ 8 PEEP Vitals Vital Signs Date Time Temp Pulse Resp B/P (MAP) Pulse Ox O2 Delivery O2 Flow Rate FiO2 12/21/19 05:00 66 22 132/67 (88) 93 Ventilator 12/21/19 04:00 98.7 98.7 12/20/19 17:06 15.0 Comments Visual exam done intubated/ sedated , no obvious JVD, no rash, trace edema Abdomen: Soft Labs Laboratory Tests Test 12/19/19 08:00 12/19/19 10:10 12/19/19 23:02 12/20/19 06:30 O2 Saturation % (92-99) Arterial Blood pH 7.32 (7.35-7.45) Arterial Blood pCO2 at Patient Temp 38 mmHg (35-46) Arterial Blood pO2 at Patient Temp 77 mmHg (65-108) Arterial Blood HCO3 19 mmol/L (21-28) Arterial Blood Base Excess -7 mmol/L (-3-3) FiO2 60 Vancomycin Level Trough 14.2 mcg/mL (10.0-20.0) Vancomycin Last Dose Date 12/17/19 Vancomycin Last Dose Time 2300 Glucose (Fingerstick) 250 mg/dL (70-99) Sodium Level 136 mmol/L (136-145) Potassium Level 3.9 mmol/L (3.5-5.1) Chloride Level 104 mmol/L (98-107) Carbon Dioxide Level 22 mmol/L (21-32) Anion Gap 10 (6-14) Blood Urea Nitrogen 68 mg/dL (8-26) Creatinine 3.4 mg/dL (0.7-1.3) Estimated GFR (Cockcroft-Gault) 20.9 Glucose Level 280 mg/dL (70-99) Calcium Level 7.1 mg/dL (8.5-10.1) Phosphorus Level 3.3 mg/dL (2.6-4.7) Magnesium Level 2.2 mg/dL (1.8-2.4) Triglycerides Level 111 mg/dL (0-150) Test 12/20/19 08:30 12/20/19 17:34 12/20/19 23:41 12/21/19 05:45 O2 Saturation 91 % (92-99) Arterial Blood pH 7.31 (7.35-7.45) Arterial Blood pCO2 at Patient Temp 41 mmHg (35-46) Arterial Blood pO2 at Patient Temp 64 mmHg (65-108) Arterial Blood HCO3 20 mmol/L (21-28) Arterial Blood Base Excess -6 mmol/L (-3-3) FiO2 60 Glucose (Fingerstick) 145 mg/dL (70-99) 152 mg/dL (70-99) Sodium Level 139 mmol/L (136-145) Potassium Level 3.7 mmol/L (3.5-5.1) Chloride Level 104 mmol/L (98-107) Carbon Dioxide Level 20 mmol/L (21-32) Anion Gap 15 (6-14) Blood Urea Nitrogen 75 mg/dL (8-26) Creatinine 4.2 mg/dL (0.7-1.3) Estimated GFR (Cockcroft-Gault) 16.4 Glucose Level 198 mg/dL (70-99) Calcium Level 6.9 mg/dL (8.5-10.1) Phosphorus Level 3.6 mg/dL (2.6-4.7) Magnesium Level 2.2 mg/dL (1.8-2.4) Test 12/21/19 06:03 Glucose (Fingerstick) 247 mg/dL (70-99) Laboratory Tests Test 12/20/19 08:30 12/20/19 17:34 12/20/19 23:41 12/21/19 05:45 O2 Saturation 91 % (92-99) Arterial Blood pH 7.31 (7.35-7.45) Arterial Blood pCO2 at Patient Temp 41 mmHg (35-46) Arterial Blood pO2 at Patient Temp 64 mmHg (65-108) Arterial Blood HCO3 20 mmol/L (21-28) Arterial Blood Base Excess -6 mmol/L (-3-3) FiO2 60 Glucose (Fingerstick) 145 mg/dL (70-99) 152 mg/dL (70-99) Sodium Level 139 mmol/L (136-145) Potassium Level 3.7 mmol/L (3.5-5.1) Chloride Level 104 mmol/L (98-107) Carbon Dioxide Level 20 mmol/L (21-32) Anion Gap 15 (6-14) Blood Urea Nitrogen 75 mg/dL (8-26) Creatinine 4.2 mg/dL (0.7-1.3) Estimated GFR (Cockcroft-Gault) 16.4 Glucose Level 198 mg/dL (70-99) Calcium Level 6.9 mg/dL (8.5-10.1) Phosphorus Level 3.6 mg/dL (2.6-4.7) Magnesium Level 2.2 mg/dL (1.8-2.4) Test 12/21/19 06:03 Glucose (Fingerstick) 247 mg/dL (70-99) Medications Active Scripts Medications Dose Route/Sig Max Daily Dose Days Date Category Dose Instructions Warfarin Sodium 3 Mg Tablet 1 Tab PO 1X 09/28/17 Reported Fluticasone Propionate Nasal [place] (Fluticasone Propionate) 16 Gm [place].susp 2 [place] NS DAILY 09/25/17 Reported last dos this am next dose tomorrow am (monday) Lubricant Eye Drops (Propylene Glycol) 10 Ml Drops 10 Ml OP [id number] 09/25/17 Reported last dose after lunch next dose with supper/ bedtime Lubricant Eye Drops (Carboxymethylcellulose Sodium) 1 Each Droperette 1 Each OP HS 09/25/17 Reported last dose last evening next dosetonight provided his own Glipizide 5 Mg Tablet 5 Mg PO DAILYWSUP 07/12/16 Reported last dose last night next dose tonight with supper Glipizide 5 Mg Tablet 2.5 Mg PO DAILY 07/12/16 Reported last dose this am (next dose tomorrow am monday) Loratadine 10 Mg Tablet 10 Mg PO 06/27/16 Reported last dose this am next dose tomorrow am(monday) Omeprazole 20 Mg Capsule.dr 20 Mg PO DAILY 06/27/16 Reported last dose this am next dose tomorrow am (monday) Ferrous Sulfate 325 Mg Tablet 1 Tab PO DAILY 06/27/16 Reported last dose this am next dose tonight Aspir 81 (Aspirin) 81 Mg Tablet.dr 81 Mg PO DAILY 06/27/16 Reported Amlodipine-Benazepril 5-10 Mg (Amlodipine Besylate/Benazepril) 1 Each Capsule 1 Cap PO DAILY 06/27/16 Reported last dos this am next dose tomorrow am (monday) Tamsulosin Hcl 0.4 Mg Cap.er.24h 1 Cap PO DAILY 10/06/14 Reported last dose this am next dose tomorrow am (monday) Simvastatin 20 Mg Tablet 1 Tab PO QHS 10/06/14 Reported last dose last evening next dose tonight Hydrochlorothiazide Tablet (Hydrochlorothiazide) 25 Mg Tablet 1 Tab PO DAILY 10/06/14 Reported last dos this am next dose tomorrow am (monday) Allopurinol 100 Mg Tablet 1 Tab PO DAILY 10/06/14 Reported last dose this am next dose tomorrow on monday Levothyroxine Sodium 50 Mcg Tablet 1 Tab PO DAILY 10/06/14 Reported last dose this am next dose tomorrow am (monday) Comments CXR 4/3 diffuse interstitial infiltrates bilateral, slightly worse Impression . This is an 84-year-old, who presents with comorbidities including debility, diabetes, and chronic kidney disease on top of acute kidney disease with abnormal chest x-ray/ hypoxia/ RF 1. Acute respiratory failure secondary ARDS 2. Pneumonia, COVID-19 positive test (U07.1, COVID-19) with Acute Pneumonia (J12.89, Other viral pneumonia) (If respiratory failure or sepsis present, add as separate assessment) 3. diabetes 4. Abnormal chest x-ray, suspect superimposed bacterial pneumonia (gram-negative gram-positive), underlying viral pneumonia 5. Septic shock, off levoped 6. Protein malnutrition present upon admission 7. Acute kidney injury,worse 8. Metabolic acidosis due to BIA 9. Severe PCM Labs reviewed, chest x-ray reviewed Plan . Continue PC mode,high FIO2 80%, PEEP 8. Follow ABG and make necessary adjustments . PAP in 30'. OK with permissive hypercapnia PRN paralytics sedation Prone positioning per protocol. Follow CXR and Labs Empiric hydro-hydroxychloroquine, Zithromax ( dc at day 5) Continue vancomycin and Zosyn DVT GI prophylaxis Nutritional support with TPN worsening renal function, follow renal rec The above was discussed with RN and RT Total cumulative critical care time of 30 minutes reviewing data, labs, chest x- ray, and managing vent prognosis guarded/ DNR ADITYA FERREIRA MD Dec 21, 2019 08:00
[2019-12-21] MEDS: amLODIPine BESYLATE 5 MG TABLET PO SCH ×2 (09:00→09:59)
[2019-12-21] MEDS: CHLORHEXIDINE 0.12% 15 ML MOUTHWASH. MM SCH ×2 (09:00→23:02)
[2019-12-21] MEDS: PANTOPRAZOLE IV PUSH 40 MG VIAL. IVP SCH (09:56)
[2019-12-21] MEDS: ZINC SULFATE 220 MG CAPSULE. PO SCH (09:57)
[2019-12-21] MEDS: ASCORBIC ACID 500 MG TABLET PO SCH (09:57)
[2019-12-21] MEDS: glipiZIDE 5 MG TABLET PO SCH (09:57)
[2019-12-21] MEDS: ASPIRIN ENTERIC COATED 81 MG TABLET.DR. PO SCH (09:57)
[2019-12-21] MEDS: CETIRIZINE HCL 10 MG TABLET. PO SCH (09:57)
[2019-12-21] MEDS: FERROUS SULFATE 325 MG TABLET. PO SCH (09:57)
[2019-12-21] MEDS: TAMSULOSIN 0.4 MG CAP.ER.24H. PO SCH (09:58)
[2019-12-21] MEDS: CARBIDOPA/LEVODOPA 25/100MG TABLET PO SCH ×3 (09:58→21:00)
[2019-12-21] MEDS: ALLOPURINOL 100 MG TABLET. PO SCH (10:02)
[2019-12-21 10:05] LABS: BASE EXCESS ABG -7 mmol/L (-3-3); HCO3 ABG 20 mmol/L (21-28); PCO2 ABG 44 mmHg (35-46); PO2 ABG 74 mmHg (65-108)
[2019-12-21 10:18] LABS: FIO2 ABG 80
[2019-12-21 10:19] LABS: SAT O2 ABG 92 % (92-99)
[2019-12-21] MEDS: TPN PER PHARMACY MC PRN (11:53)
--- NOTE | 2019-12-21 11:54 | PDOC ---
PROGRESS NOTES Chief Complaint Chief Complaint Covid 19 positive ARDS Respiratory failure requiring intubation and mechanical ventilation Normal anion gap acidosis Hypocalcemia Severe protein calorie malnutrition Normocytic anemia Pneumonia CKD stage 4 Debility Weakness Fevers Arthritis, diabetes, back surgery, knee surgery and thyroid surgery. Plan; Patient receiving vancomycin plaquenil and azithromycin continue supportive measures vent management as per critical acute care registered nurse discussed discontinuing shoshana inhibitor in light of his renal dysfunction with nephrology proposal consultant, recommendations greatly appreciated prognosis guarded DVT prohpylaxis: lovenox COVID-19 CRITERIA: The patient was evaluated during the global COVID-19 pandemic, and that diagnosis was suspected/considered upon their initial presentation. Their evaluation, treatment and testing was consistent with current guidelines for patients who present with complaints or symptoms that may be related to COVID-19. History of Present Illness History of Present Illness 12/21/2019 Patient seen and examined in the ICU He remains mechanically ventilated aC 60% FiO2 and 10 PEEP no acute events reported overnight. Chart reviewed Hemoglobin, platelet and increase in creatinine Discussed with RN Vitals Vitals Vital Signs Date Time Temp Pulse Resp B/P (MAP) Pulse Ox O2 Delivery O2 Flow Rate FiO2 12/21/19 11:00 66 22 132/55 (80) 95 Ventilator 12/21/19 08:00 97.5 97.5 12/20/19 17:06 15.0 Physical Exam General: Other (bucking the vent, we just ordered some paralytics) Heart: Regular rate, Normal S1, Normal S2, No murmurs, Other (tachycardic at 102 bpm distant S1-S2) Abdomen: Soft Extremities: No clubbing, No cyanosis Skin: No rashes, No breakdown Labs LABS Laboratory Tests Test 12/20/19 17:34 12/20/19 23:41 12/21/19 05:45 12/21/19 06:03 Glucose (Fingerstick) 145 mg/dL (70-99) 152 mg/dL (70-99) 247 mg/dL (70-99) Sodium Level 139 mmol/L (136-145) Potassium Level 3.7 mmol/L (3.5-5.1) Chloride Level 104 mmol/L (98-107) Carbon Dioxide Level 20 mmol/L (21-32) Anion Gap 15 (6-14) Blood Urea Nitrogen 75 mg/dL (8-26) Creatinine 4.2 mg/dL (0.7-1.3) Estimated GFR (Cockcroft-Gault) 16.4 Glucose Level 198 mg/dL (70-99) Calcium Level 6.9 mg/dL (8.5-10.1) Phosphorus Level 3.6 mg/dL (2.6-4.7) Magnesium Level 2.2 mg/dL (1.8-2.4) Test 12/21/19 09:00 O2 Saturation 92 % (92-99) Arterial Blood pH 7.26 (7.35-7.45) Arterial Blood pCO2 at Patient Temp 44 mmHg (35-46) Arterial Blood pO2 at Patient Temp 74 mmHg (65-108) Arterial Blood HCO3 20 mmol/L (21-28) Arterial Blood Base Excess -7 mmol/L (-3-3) FiO2 80 Assessment and Plan Assessmemt and Plan Problems Medical Problems: (1) Bilateral pneumonia Status: Acute (2) Fever Status: Acute (3) Hypoglycemia Status: Acute (4) Renal insufficiency Status: Acute (5) Suspected 2019 novel coronavirus infection Status: Acute (6) Weakness Status: Acute Comment Review of Relevant I have reviewed the following items sammie (where applicable) has been applied. Labs Laboratory Tests Test 12/19/19 23:02 12/20/19 06:30 12/20/19 08:30 12/20/19 17:34 Glucose (Fingerstick) 250 mg/dL (70-99) 145 mg/dL (70-99) Sodium Level 136 mmol/L (136-145) Potassium Level 3.9 mmol/L (3.5-5.1) Chloride Level 104 mmol/L (98-107) Carbon Dioxide Level 22 mmol/L (21-32) Anion Gap 10 (6-14) Blood Urea Nitrogen 68 mg/dL (8-26) Creatinine 3.4 mg/dL (0.7-1.3) Estimated GFR (Cockcroft-Gault) 20.9 Glucose Level 280 mg/dL (70-99) Calcium Level 7.1 mg/dL (8.5-10.1) Phosphorus Level 3.3 mg/dL (2.6-4.7) Magnesium Level 2.2 mg/dL (1.8-2.4) Triglycerides Level 111 mg/dL (0-150) O2 Saturation 91 % (92-99) Arterial Blood pH 7.31 (7.35-7.45) Arterial Blood pCO2 at Patient Temp 41 mmHg (35-46) Arterial Blood pO2 at Patient Temp 64 mmHg (65-108) Arterial Blood HCO3 20 mmol/L (21-28) Arterial Blood Base Excess -6 mmol/L (-3-3) FiO2 60 Test 12/20/19 23:41 12/21/19 05:45 12/21/19 06:03 12/21/19 09:00 Glucose (Fingerstick) 152 mg/dL (70-99) 247 mg/dL (70-99) Sodium Level 139 mmol/L (136-145) Potassium Level 3.7 mmol/L (3.5-5.1) Chloride Level 104 mmol/L (98-107) Carbon Dioxide Level 20 mmol/L (21-32) Anion Gap 15 (6-14) Blood Urea Nitrogen 75 mg/dL (8-26) Creatinine 4.2 mg/dL (0.7-1.3) Estimated GFR (Cockcroft-Gault) 16.4 Glucose Level 198 mg/dL (70-99) Calcium Level 6.9 mg/dL (8.5-10.1) Phosphorus Level 3.6 mg/dL (2.6-4.7) Magnesium Level 2.2 mg/dL (1.8-2.4) O2 Saturation 92 % (92-99) Arterial Blood pH 7.26 (7.35-7.45) Arterial Blood pCO2 at Patient Temp 44 mmHg (35-46) Arterial Blood pO2 at Patient Temp 74 mmHg (65-108) Arterial Blood HCO3 20 mmol/L (21-28) Arterial Blood Base Excess -7 mmol/L (-3-3) FiO2 80 Laboratory Tests Test 12/20/19 17:34 12/20/19 23:41 12/21/19 05:45 12/21/19 06:03 Glucose (Fingerstick) 145 mg/dL (70-99) 152 mg/dL (70-99) 247 mg/dL (70-99) Sodium Level 139 mmol/L (136-145) Potassium Level 3.7 mmol/L (3.5-5.1) Chloride Level 104 mmol/L (98-107) Carbon Dioxide Level 20 mmol/L (21-32) Anion Gap 15 (6-14) Blood Urea Nitrogen 75 mg/dL (8-26) Creatinine 4.2 mg/dL (0.7-1.3) Estimated GFR (Cockcroft-Gault) 16.4 Glucose Level 198 mg/dL (70-99) Calcium Level 6.9 mg/dL (8.5-10.1) Phosphorus Level 3.6 mg/dL (2.6-4.7) Magnesium Level 2.2 mg/dL (1.8-2.4) Test 12/21/19 09:00 O2 Saturation 92 % (92-99) Arterial Blood pH 7.26 (7.35-7.45) Arterial Blood pCO2 at Patient Temp 44 mmHg (35-46) Arterial Blood pO2 at Patient Temp 74 mmHg (65-108) Arterial Blood HCO3 20 mmol/L (21-28) Arterial Blood Base Excess -7 mmol/L (-3-3) FiO2 80 Microbiology 12/17/19 Blood Culture - Preliminary, Resulted NO GROWTH AFTER 3 DAYS Medications Current Medications Acetaminophen (Tylenol) 1,000 mg 1X ONCE PO ; Start 12/09/19 at 12:15; Stop 12/09/19 at 12:16; Status DC Sodium Chloride 1,000 ml @ 1,000 mls/hr Q1H IV Last administered on 12/09/19at 13:48; Start 12/09/19 at 12:01; Stop 12/09/19 at 13:00; Status DC Ceftriaxone Sodium (Rocephin) 1 gm 1X ONCE IVP Last administered on 12/09/19at 13:49; Start 12/09/19 at 13:30; Stop 12/09/19 at 13:31; Status DC Vancomycin HCl 250 ml @ 250 mls/hr 1X ONCE IV Last administered on 12/09/19at 13:49; Start 12/09/19 at 13:30; Stop 12/09/19 at 14:29; Status DC Dextrose (Dextrose 50%-Water Syringe) 12.5 gm 1X ONCE IV Last administered on 12/09/19at 13:48; Start 12/09/19 at 13:45; Stop 12/09/19 at 13:46; Status DC Sodium Polystyrene Sulfonate (Kayexalate) 15 gm 1X ONCE PO Last administered on 12/09/19at 14:35; Start 12/09/19 at 13:45; Stop 3/23/20 at 13:46; Status DC Sodium Chloride 1,000 ml @ 150 mls/hr Q6H40M IV Last administered on 12/10/19at 09:00; Start 12/09/19 at 13:46; Stop 12/10/19 at 13:45; Status DC Dextrose (Dextrose 50%-Water Syringe) 25 gm 1X ONCE IV Last administered on 12/09/19at 15:09; Start 12/09/19 at 15:00; Stop 12/09/19 at 15:02; Status DC Acetaminophen (Tylenol) 1,000 mg PRN Q6HRS PRN PO FEVER Last administered on 12/20/19at 12:51; Start 12/09/19 at 15:30 Acetaminophen (Tylenol) 1,000 mg PRN Q6HRS PRN PO FEVER; Start 12/09/19 at 15:30; Stop 12/09/19 at 18:00; Status DC Dextrose (Dextrose 50%-Water Syringe) 25 gm 1X ONCE IV Last administered on 12/09/19at 22:38; Start 12/09/19 at 22:30; Stop 12/09/19 at 22:31; Status DC Dextrose (Dextrose 50%-Water Syringe) 12.5 gm PRN Q15MIN PRN IV SEE COMMENTS Last administered on 12/12/19at 21:21; Start 12/10/19 at 00:30 Allopurinol (Zyloprim) 100 mg DAILY PO Last administered on 12/21/19at 10:02; Start 12/10/19 at 17:00 Aspirin (Ecotrin) 81 mg DAILY PO Last administered on 12/21/19at 09:57; Start 12/10/19 at 17:00 Ferrous Sulfate (Feosol) 325 mg DAILY08 PO Last administered on 12/21/19 09:57; Start 12/10/19 at 17:00 Fluticasone Propionate (Flonase) 2 spray DAILY NS Last administered on 12/16/19at 09:00; Start 12/11/19 at 09:00; Stop 12/21/19 at 11:07; Status DC Glipizide (Glucotrol) 2.5 mg DAILYAC PO Last administered on 12/21/19 09:57; Start 12/11/19 at 07:30; Stop 12/21/19 at 11:07; Status DC Glipizide (Glucotrol) 5 mg DAILYWSUP PO Last administered on 12/10/19at 17:18; Start 12/10/19 at 17:00; Stop 12/11/19 at 08:03; Status DC Hydrochlorothiazide (Hydrodiuril) 25 mg DAILY PO Last administered on 12/16/19at 09:04; Start 12/10/19 at 17:00; Stop 12/16/19 at 12:52; Status DC Levothyroxine Sodium (Synthroid) 50 mcg DAILY06 PO Last administered on 12/21/19at 05:50; Start 12/11/19 at 06:00; Stop 12/21/19 at 11:07; Status DC Simvastatin (Zocor) 20 mg QHS PO Last administered on 12/11/19at 21:31; Start 12/10/19 at 21:00; Stop 12/13/19 at 11:28; Status DC Tamsulosin HCl (Flomax) 0.4 mg DAILY PO Last administered on 12/21/19at 09:58; Start 12/10/19 at 17:00; Stop 12/21/19 at 11:07; Status DC Warfarin Sodium (Coumadin) 3 mg 1X PO ; Start 12/10/19 at 16:00; Stop 12/10/19 at 16:44; Status DC Amlodipine Besylate (Norvasc) 5 mg DAILY PO Last administered on 12/21/19at 09:59; Start 12/10/19 at 17:00 Non-Formulary Medication (Carboxymethylcellulose Sodium (Lubricant Eye Drops)) 1 each HS OP ; Start 12/10/19 at 21:00; Status UNV Pantoprazole Sodium (Protonix) 40 mg DAILYAC PO Last administered on 12/16/19at 09:04; Start 12/10/19 at 16:30; Stop 12/17/19 at 07:44; Status DC Artificial Tears (Artificial Tears) 1 drop [id number] OU ; Start 12/10/19 at 17:00; Stop 12/10/19 at 16:44; Status DC Cetirizine HCl (ZyrTEC) 10 mg DAILY PO Last administered on 12/21/19at 09:57; Start 12/10/19 at 17:00; Stop 12/21/19 at 11:07; Status DC Warfarin Sodium (Coumadin Per Physician) 1 each PRN DAILY PRN MC SEE COMMENTS; Start 12/10/19 at 16:30; Stop 12/10/19 at 16:44; Status DC Ceftriaxone Sodium (Rocephin) 1 gm Q24H IVP Last administered on 12/12/19at 17:24; Start 12/10/19 at 18:00; Stop 12/13/19 at 09:07; Status DC Azithromycin 250 ml @ 250 mls/hr 1X ONCE IV ; Start 12/10/19 at 16:30; Stop 12/10/19 at 17:29; Status UNV Lisinopril (Prinivil) 10 mg DAILY PO Last administered on 12/18/19at 10:03; Start 12/10/19 at 17:00; Stop 12/18/19 at 11:12; Status DC Azithromycin 500 mg/Sodium Chloride 250 ml @ 250 mls/hr Q24H IV Last administered on 12/12/19at 17:21; Start 12/10/19 at 18:00; Stop 12/13/19 at 11:18; Status DC Carbidopa/Levodopa (Sinemet 25/100) 2 tab TID PO Last administered on 12/21/19at 09:58; Start 12/10/19 at 17:00 Lactobacillus Rhamnosus (Culturelle) 1 cap BID PO Last administered on 12/14/19at 20:48; Start 12/11/19 at 21:00; Stop 12/15/19 at 08:34; Status DC Acetaminophen (Tylenol Supp) 650 mg PRN Q6HRS PRN SD MILD PAIN / TEMP Last administered on 12/15/19at 17:55; Start 12/12/19 at 07:45 Amino Acids/ Glycerin/ Electrolytes 1,000 ml @ 50 mls/hr Q20H IV Last administered on 12/15/19at 21:47; Start 12/12/19 at 10:15; Stop 12/16/19 at 21:59; Status DC Sodium Chloride 1,000 ml @ 75 mls/hr [id number] IV Last administered on 12/17/19at 09:22; Start 12/12/19 at 11:00; Stop 12/17/19 at 11:52; Status DC Enoxaparin Sodium (Lovenox 30mg Syringe) 30 mg Q24H SQ Last administered on 12/20/19at 08:29; Start 12/12/19 at 12:00 Hydroxychloroquine Sulfate (Plaquenil) 400 mg BID PO Last administered on 12/14/19at 20:48; Start 12/13/19 at 09:00; Stop 12/14/19 at 21:01; Status DC Hydroxychloroquine Sulfate (Plaquenil) 200 mg BID PO Last administered on 12/17/19at 22:59; Start 12/15/19 at 09:00; Stop 12/17/19 at 21:01; Status DC Piperacillin Sod/ Tazobactam Sod 4.5 gm/Sodium Chloride 100 ml @ 200 mls/hr Q6HRS IV ; Start 12/13/19 at 12:00; Status UNV Vancomycin HCl (Vanco Per Pharmacy) 1 each PRN DAILY PRN MC SEE COMMENTS Last administered on 12/18/19at 10:49; Start 12/13/19 at 09:00; Stop 12/19/19 at 14:26; Status DC Piperacillin Sod/ Tazobactam Sod 3.375 gm/Sodium Chloride 50 ml @ 100 mls/hr Q6HRS IV Last administered on 12/19/19at 11:39; Start 12/13/19 at 10:00; Stop 12/19/19 at 12:21; Status DC Vancomycin HCl 1.5 gm/Sodium Chloride 500 ml @ 250 mls/hr 1X ONCE IV Last administered on 12/13/19at 11:11; Start 12/13/19 at 10:00; Stop 12/13/19 at 11:59; Status DC Fentanyl Citrate 30 ml @ 2.5 mls/hr CONT PRN IV SEE PROTOCOL Last administered on 12/21/19at 06:40; Start 12/13/19 at 10:15 Chlorhexidine Gluconate (Peridex) 15 ml BID MM Last administered on 12/21/19at 09:00; Start 12/13/19 at 21:00 Morphine Sulfate (Morphine Sulfate) 2 mg PRN Q1HR PRN IV SEE COMMENTS.; Start 12/13/19 at 10:15 Morphine Sulfate (Morphine Sulfate) 4 mg PRN Q1HR PRN IV SEE COMMENTS. Last administered on 12/13/19at 12:40; Start 12/13/19 at 10:15 Propofol 100 ml @ 1.05 mls/hr CONT PRN IV SEE I/O RECORD Last administered on 12/16/19at 05:16; Start 12/13/19 at 10:30 Propofol 100 ml @ As Directed STK-MED ONCE IV ; Start 12/13/19 at 08:48; Stop 12/13/19 at 14:11; Status DC Propofol 100 ml @ As Directed STK-MED ONCE IV ; Start 12/13/19 at 09:33; Stop 12/13/19 at 14:12; Status DC Norepinephrine Bitartrate 8 mg/ Dextrose 258 ml @ 13.545 mls/ hr CONT PRN IV PER PROTOCOL Last administered on 12/16/19at 05:15; Start 12/13/19 at 15:30 Vancomycin HCl (Vancomycin Random Level) 1 each 1X ONCE MC Last administered on 12/14/19at 04:52; Start 12/14/19 at 05:00; Stop 12/14/19 at 05:01; Status DC Vancomycin HCl 1 gm/Sodium Chloride 250 ml @ 250 mls/hr Q48H IV Last administered on 12/16/19at 10:42; Start 12/14/19 at 09:00; Stop 12/16/19 at 12:01; Status DC Vancomycin HCl (Vancomycin Trough Level) 1 each 1X ONCE MC Last administered on 12/16/19at 08:30; Start 12/16/19 at 08:30; Stop 12/16/19 at 08:31; Status DC Vecuronium Burns (Norcuron Bolus) 10 mg STK-MED ONCE IV ; Start 12/14/19 at 12:43; Stop 12/14/19 at 12:43; Status DC Vecuronium Burns (Norcuron Bolus) 6 mg 1X ONCE IV Last administered on 12/14/19at 12:55; Start 12/14/19 at 12:45; Stop 12/14/19 at 12:52; Status DC Azithromycin 250 mg/Sodium Chloride 250 ml @ 250 mls/hr Q24H IV Last administered on 12/19/19at 09:32; Start 12/15/19 at 10:00; Stop 12/19/19 at 14:25; Status DC Vecuronium Burns (Norcuron Bolus) 10 mg STK-MED ONCE IV ; Start 12/16/19 at 10:45; Stop 12/16/19 at 10:45; Status DC Vecuronium Burns (Norcuron Bolus) 6 mg 1X ONCE IV ; Start 12/16/19 at 11:15; Stop 12/16/19 at 11:16; Status DC Vancomycin HCl 1 gm/Sodium Chloride 250 ml @ 250 mls/hr Q36H IV Last administered on 12/19/19at 11:39; Start 12/17/19 at 23:00; Stop 12/19/19 at 14:25; Status DC Midazolam HCl 50 mg/Sodium Chloride 50 ml @ 1 mls/hr CONT PRN IV SEE I/O RECORD; Start 12/16/19 at 12:15; Stop 12/16/19 at 12:10; Status DC Midazolam HCl 100 mg/Sodium Chloride 100 ml @ 1 mls/hr CONT PRN IV SEE I/O RECORD Last administered on 12/20/19at 23:36; Start 12/16/19 at 12:15 Vancomycin HCl (Vancomycin Trough Level) 1 each 1X ONCE MC Last administered on 12/19/19at 09:47; Start 12/19/19 at 10:30; Stop 12/19/19 at 10:31; Status DC Info (Tpn Per Pharmacy) 1 each PRN DAILY PRN MC SEE COMMENTS Last administered on 12/20/19at 13:28; Start 12/16/19 at 13:00 Sodium Acetate 60 meq/Potassium Chloride 20 meq/ Potassium Phosphate 10 mmol/ Magnesium Sulfate 10 meq/Calcium Gluconate 10 meq/ Multivitamins 10 ml/Chromium/ Copper/Manganese/ Seleni/Zn 0.5 ml/ Total Parenteral Nutrition/Amino Acids/Dextrose 1,200 ml @ 50 mls/hr TPN CONT IV Last administered on 12/16/19at 22:24; Start 12/16/19 at 22:00; Stop 12/17/19 at 21:59; Status DC Pantoprazole Sodium (PROTONIX VIAL for IV PUSH) 40 mg DAILYAC IVP Last administered on 12/21/19at 09:56; Start 12/17/19 at 09:00; Stop 12/21/19 at 11:07; Status DC Vecuronium Burns (Norcuron Bolus) 6 mg Q4HRS PRN IV VENT ASYNCHRONY Last administered on 12/17/19at 11:46; Start 12/17/19 at 08:45 Sodium Bicarbonate (Sodium Bicarb Adult 8.4% Syr) 50 meq 1X ONCE IV Last administered on 12/17/19at 09:31; Start 12/17/19 at 08:45; Stop 12/17/19 at 08:47; Status DC Sodium Bicarbonate 50 meq/Sodium Chloride 1,050 ml @ 100 mls/hr [id number] IV Last administered on 12/20/19at 18:49; Start 12/17/19 at 12:30; Stop 12/21/19 at 08:00; Status DC Sodium Acetate 60 meq/Potassium Chloride 20 meq/ Potassium Phosphate 10 mmol/ Magnesium Sulfate 10 meq/Calcium Gluconate 10 meq/ Multivitamins 10 ml/Chromium/ Copper/Manganese/ Seleni/Zn 0.5 ml/ Total Parenteral Nutrition/Amino Acids/Dextrose/ Fat Emulsion Intravenous 1,200 ml @ 50 mls/hr TPN CONT IV Last administered on 12/17/19at 23:00; Start 12/17/19 at 22:00; Stop 12/18/19 at 21:59; Status DC Ascorbic Acid (Vitamin C) 500 mg DAILY PO Last administered on 12/21/19at 09:57; Start 12/17/19 at 15:00; Stop 12/21/19 at 11:07; Status DC Zinc Sulfate (Orazinc) 220 mg DAILY PO Last administered on 12/21/19at 09:57; Start 12/17/19 at 15:00; Stop 12/21/19 at 11:07; Status DC Metoclopramide HCl (Reglan Vial) 10 mg PRN Q6HRS PRN IVP NAUSEA/VOMITING; Start 12/18/19 at 09:15; Stop 12/18/19 at 09:06; Status DC Ondansetron HCl (Zofran) 4 mg PRN Q6HRS PRN IVP NAUSEA/VOMITING Last administered on 12/18/19at 09:55; Start 12/18/19 at 09:15 Sodium Chloride 500 ml @ 500 mls/hr 1X ONCE IV Last administered on 12/18/19at 09:15; Start 12/18/19 at 09:15; Stop 12/18/19 at 10:14; Status DC Metoclopramide HCl (Reglan Vial) 5 mg PRN Q6HRS PRN IVP NAUSEA/VOMITING, 2ND CHOICE Last administered on 12/18/19at 09:55; Start 12/18/19 at 09:15 Sodium Acetate 60 meq/Potassium Chloride 10 meq/ Potassium Phosphate 10 mmol/ Calcium Gluconate 5 meq/ Multivitamins 10 ml/Chromium/ Copper/Manganese/ Seleni/Zn 0.5 ml/ Total Parenteral Nutrition/Amino Acids/Dextrose/ Fat Emulsion Intravenous 1,200 ml @ 50 mls/hr TPN CONT IV Last administered on 12/18/19at 22:25; Start 12/18/19 at 22:00; Stop 12/19/19 at 21:59; Status DC Hydroxychloroquine Sulfate (Plaquenil) 200 mg BID PO Last administered on 12/18/19at 22:23; Start 12/18/19 at 11:00; Stop 12/18/19 at 21:01; Status DC Darbepoetin Devin (ARANESP for DIALYSIS PTS) 60 mcg [id number] SQ Last administered on 12/19/19at 21:20; Start 12/19/19 at 21:00 Piperacillin Sod/ Tazobactam Sod 2.25 gm/Sodium Chloride 50 ml @ 100 mls/hr Q6HRS IV Last administered on 12/21/19at 05:44; Start 12/19/19 at 18:00 Sodium Acetate 60 meq/Potassium Chloride 10 meq/ Potassium Phosphate 10 mmol/ Calcium Gluconate 5 meq/ Multivitamins 10 ml/Chromium/ Copper/Manganese/ Seleni/Zn 0.5 ml/ Total Parenteral Nutrition/Amino Acids/Dextrose/ Fat Emulsion Intravenous 1,200 ml @ 50 mls/hr TPN CONT IV Last administered on 12/19/19at 21:20; Start 12/19/19 at 22:00; Stop 12/20/19 at 21:59; Status DC Linezolid/Dextrose 300 ml @ 300 mls/hr Q12HR IV Last administered on 12/21/19at 09:55; Start 12/19/19 at 21:00 Sodium Acetate 60 meq/Potassium Chloride 10 meq/ Potassium Phosphate 10 mmol/ Calcium Gluconate 5 meq/ Multivitamins 10 ml/Chromium/ Copper/Manganese/ Seleni/Zn 0.5 ml/ Total Parenteral Nutrition/Amino Acids/Dextrose/ Fat Emulsion Intravenous 1,200 ml @ 50 mls/hr TPN CONT IV Last administered on 12/20/19at 21:32; Start 4/3/20 at 22:00; Stop 12/21/19 at 21:59 Insulin Glargine (Lantus Syringe) 20 unit QHS SQ ; Start 12/20/19 at 17:00; Status Cancel Insulin Human Lispro (HumaLOG) 0-5 UNITS Q6HRS SQ Last administered on 12/21/19at 06:28; Start 12/20/19 at 18:00 Dextrose (Dextrose 50%-Water Syringe) 12.5 gm PRN Q15MIN PRN IV SEE COMMENTS; Start 12/20/19 at 16:45; Status Cancel Insulin Glargine (Lantus Syringe) 20 unit DAILY@1800 SQ Last administered on 12/20/19at 17:36; Start 12/20/19 at 18:00; Stop 12/21/19 at 11:07; Status DC Dextrose (Dextrose 50%-Water Syringe) 12.5 gm PRN Q15MIN PRN IV SEE COMMENTS; Start 12/20/19 at 17:15; Status UNV Insulin Glargine (Lantus Syringe) 24 unit DAILY@1800 SQ ; Start 12/21/19 at 18:00 Sodium Acetate 60 meq/Potassium Chloride 10 meq/ Potassium Phosphate 10 mmol/ Calcium Gluconate 5 meq/ Multivitamins 10 ml/Chromium/ Copper/Manganese/ Seleni/Zn 0.5 ml/ Total Parenteral Nutrition/Amino Acids/Dextrose/ Fat Emulsion Intravenous 1,200 ml @ 50 mls/hr TPN CONT IV ; Start 12/21/19 at 22:00; Stop 12/22/19 at 21:59 Active Scripts Active Reported Carbidopa-Levodopa 25-100 Tab (Carbidopa/Levodopa) 1 Each Tablet 50-200 PO TID Fluticasone Propionate Nasal [place] (Fluticasone Propionate) 16 Gm [place].susp 2 [place] NS DAILY last dos this am next dose tomorrow am (monday) Glipizide 5 Mg Tablet 5 Mg PO DAILYWSUP last dose last night next dose tonight with supper Glipizide 5 Mg Tablet 2.5 Mg PO DAILY last dose this am (next dose tomorrow am monday) Loratadine 10 Mg Tablet 10 Mg PO last dose this am next dose tomorrow am(monday) Omeprazole 20 Mg Capsule.dr 20 Mg PO DAILY last dose this am next dose tomorrow am (monday) Ferrous Sulfate 325 Mg Tablet 1 Tab PO DAILY last dose this am next dose tonight Amlodipine-Benazepril 5-10 Mg (Amlodipine Besylate/Benazepril) 1 Each Capsule 1 Cap PO DAILY last dos this am next dose tomorrow am (monday) Tamsulosin Hcl 0.4 Mg Cap.er.24h 1 Cap PO DAILY last dose this am next dose tomorrow am (monday) Simvastatin 20 Mg Tablet 1 Tab PO QHS last dose last evening next dose tonight Hydrochlorothiazide Tablet (Hydrochlorothiazide) 25 Mg Tablet 1 Tab PO DAILY last dos this am next dose tomorrow am (monday) Allopurinol 100 Mg Tablet 1 Tab PO DAILY last dose this am next dose tomorrow on monday Levothyroxine Sodium 50 Mcg Tablet 1 Tab PO DAILY last dose this am next dose tomorrow am (monday) Vitals/I & O Vital Sign - Last 24 Hours 12/20/19 12/20/19 12/20/19 12/20/19 12:00 12:00 12:23 13:00 Temp 102.1 102.1 Pulse 81 80 Resp 24 24 B/P (MAP) 109/49 (69) 112/54 (73) Pulse Ox 92 91 92 O2 Delivery Mechanical Ventilator Ventilator 12/20/19 12/20/19 12/20/19 12/20/19 14:00 15:00 15:41 16:00 Temp 98.8 98.8 Pulse 80 80 80 Resp 20 20 B/P (MAP) 98/44 (62) 90/42 (58) 90/42 (58) Pulse Ox 92 92 92 92 O2 Delivery Ventilator Ventilator O2 Flow Rate 15.0 15.0 15.0 12/20/19 12/20/19 12/20/19 12/20/19 16:00 16:09 16:12 17:06 Pulse 52 68 Resp 22 B/P (MAP) 90/42 (58) 93/42 (59) Pulse Ox 92 88 90 O2 Delivery Mechanical Ventilator Ventilator Ventilator Ventilator O2 Flow Rate 15.0 15.0 12/20/19 12/20/19 12/20/19 12/20/19 18:00 19:00 20:00 20:00 Temp 99.9 99.1 99.9 99.1 Pulse 71 71 71 Resp 26 26 B/P (MAP) 94/47 (63) 115/52 (73) 113/51 (71) Pulse Ox 91 91 92 93 O2 Delivery Ventilator Ventilator Ventilator Ventilator 12/20/19 12/20/19 12/20/19 12/20/19 20:00 21:00 22:00 23:00 Pulse 67 66 64 Resp 20 B/P (MAP) 103/51 (68) 107/52 (70) 110/54 (72) Pulse Ox 94 93 93 O2 Delivery Mechanical Ventilator Ventilator Ventilator Ventilator 12/21/19 12/21/19 12/21/19 12/21/19 00:00 00:00 00:20 01:00 Temp 98.4 98.4 Pulse 66 66 Resp B/P (MAP) 117/53 (74) 114/53 (73) Pulse Ox 93 92 92 O2 Delivery Mechanical Ventilator Ventilator Ventilator Ventilator 12/21/19 12/21/19 12/21/19 12/21/19 02:00 03:00 04:00 04:00 Temp 98.7 98.7 Pulse 62 68 70 Resp 24 B/P (MAP) 105/52 (69) 106/54 (71) 101/47 (65) Pulse Ox 93 93 93 O2 Delivery Ventilator Ventilator Ventilator Mechanical Ventilator 12/21/19 12/21/19 12/21/19 12/21/19 04:26 05:00 07:00 07:15 Pulse 66 64 Resp 20 B/P (MAP) 132/67 (88) 131/58 (82) Pulse Ox 93 96 94 O2 Delivery Ventilator Ventilator Ventilator Ventilator 12/21/19 12/21/19 12/21/19 12/21/19 08:00 09:00 09:59 10:00 Temp 97.5 97.5 Pulse 66 68 66 64 Resp 24 20 B/P (MAP) 137/57 (83) 126/58 (80) 126/54 115/53 (73) Pulse Ox 94 95 95 O2 Delivery Ventilator Ventilator Ventilator 12/21/19 11:00 Pulse 66 Resp 22 B/P (MAP) 132/55 (80) Pulse Ox 95 O2 Delivery Ventilator Intake and Output 12/20/19 12/20/19 12/21/19 15:00 23:00 07:00 Intake Total 300 ml 3065 ml 1537.27 ml Output Total 160 ml 75 ml 85 ml Balance 140 ml 2990 ml 1452.27 ml Nutrition Consultation Dietary Evaluation: Recommendations by RD: Dietary education by RD, Increase Calorie Intake, PPN/TPN Comments: Continue w/TPN per current order: 225 g dextrose, 85 g AA, 20 g lipids If pt stable and apprpriate for enteral nutrition (no vomiting, no bowel ischemia), would recommend consideration of TFs to support gut function, recommend TFs per following: VitalAF@goal rate 50 ml/hr w/125 ml water flushes q4 hrs. REC TFs@10 ml/hr when pt in prone position w/minimal water flushes (~50 ml q6 hrs or as appropriate per MD) to minimize aspiration risk Expected Outcomes/Goals: New goal 12/16: Nutrition support to meet >65% estimated nutrition needs while pt remains intubated - met, goal ongoing Interpretation of weight loss: >5% in 1 month Malnutrition Findings: Food and Nutrition Intake (Sev: <50% est energy req 5days Weight Status: Appropriate DANTE CAGE MD Dec 21, 2019 11:54
[2019-12-21] MEDS: ENOXAPARIN 30 MG/0.3 ML SYRINGE. SQ SCH (12:42)
--- NOTE | 2019-12-21 15:10 | PDOC ---
SUBJECTIVE ROS We were asked to see patient for acute on chronic renal insufficiency Patient remains on the ventilator in COVID-19 precautions Urine output has gradually tapered off despite IV fluid administration. Creati nine is worse today. He is significantly edematous. FiO2 needs have also gone up OBJECTIVE Vital Signs Vital Signs Date Time Temp Pulse Resp B/P (MAP) Pulse Ox O2 Delivery O2 Flow Rate FiO2 12/21/19 13:29 22 96 Ventilator 12/21/19 11:00 66 132/55 (80) 12/21/19 08:00 97.5 97.5 12/20/19 17:06 15.0 I & 0 Intake and Output 12/21/19 07:00 Intake Total 4902.27 ml Output Total 320 ml Balance 4582.27 ml Intake Oral 300 ml IV Total 1837.27 ml Other 2765 ml Output Urine Total 320 ml PHYSICAL EXAM Physical Exam Physical Exam General Appearance: other (SEDATED) the vent Skin: warm Respiratory: ventilator Heart: S1S2 per the monitor Extremities: Edematous Neurology: other (SEDATED) Musculoskeletal: Other (SEDATED ON THE VENT) Assessment Assessment IMP BIA-most likely associated with ATN and generalized illness associated with COVID-19. MET ACIDOSIS: IV bicarbonate as needed CKD STAGE 3 WITH BASELINE CR OF 2.0. Given advanced age and other comorbidities as well as ongoing potentially terminal illness is felt by all involved that the patient was not significantly benefit from dialysis. Hence this will not be pursued at this time. He appears to be hemodynamically labile also ACUTE RESP [id number] FIO2 OF 60%: Given positive fluid status: IV Lasix will be started COV - PNEUMONIA: iwth Lymphocytopenida: Level III isolation precautions with mask, gown, shoe covers, eye protection, glucose were used during evaluation Possible underlying sepsis SEPSIS: Antibiotics will be deferred to ID Marginal hemodynamics: PRESSORS NEEDED. IV albumin if needed Marginal hypocalcemia: Magnesium is adequate. Suspect due to low albumin. No recent albumin levels. CONT TPN and nutritional support at this time He may have chronic kidney disease: ON ARANESP ordered. ThromboCytopenia: Appears to be associated with underlying illness Extensively discussed with nurse at bedside. Prognosis is extremely poor COMMENT/RELEVANT DATA Meds Current Medications Medications (Trade) Dose Ordered Sig/Aga Start Time Stop Time Status Last Admin Dose Admin Acetaminophen (Tylenol Supp) 650 mg PRN Q6HRS PRN 12/12/19 07:45 12/15/19 17:55 650 MG Acetaminophen (Tylenol) 1,000 mg PRN Q6HRS PRN 12/09/19 15:30 12/09/19 18:00 DC Allopurinol (Zyloprim) 100 mg DAILY 12/10/19 17:00 12/21/19 10:02 100 MG Amino Acids/ Glycerin/ Electrolytes 1,000 ml @ 50 mls/hr Q20H 12/12/19 10:15 12/16/19 21:59 DC 12/15/19 21:47 50 MLS/HR Amlodipine Besylate (Norvasc) 5 mg DAILY 12/10/19 17:00 12/21/19 09:59 5 MG Artificial Tears (Artificial Tears) 1 drop [id number] 12/10/19 17:00 12/10/19 16:44 DC Ascorbic Acid (Vitamin C) 500 mg DAILY 12/17/19 15:00 12/21/19 11:07 DC 12/21/19 09:57 500 MG Aspirin (Ecotrin) 81 mg DAILY 12/10/19 17:00 12/21/19 09:57 81 MG Azithromycin 250 ml @ 250 mls/hr 1X ONCE 12/10/19 16:30 12/10/19 17:29 UNV Azithromycin 250 mg/Sodium Chloride 250 ml @ 250 mls/hr Q24H 12/15/19 10:00 12/19/19 14:25 DC 12/19/19 09:32 250 MLS/HR Azithromycin 500 mg/Sodium Chloride 250 ml @ 250 mls/hr Q24H 12/10/19 18:00 12/13/19 11:18 DC 12/12/19 17:21 250 MLS/HR Carbidopa/Levodopa (Sinemet 25/100) 2 tab TID 12/10/19 17:00 12/21/19 09:58 2 TAB Ceftriaxone Sodium (Rocephin) 1 gm Q24H 12/10/19 18:00 12/13/19 09:07 DC 12/12/19 17:24 1 GM Cetirizine HCl (ZyrTEC) 10 mg DAILY 12/10/19 17:00 12/21/19 11:07 DC 12/21/19 09:57 10 MG Chlorhexidine Gluconate (Peridex) 15 ml BID 12/13/19 21:00 12/21/19 09:00 15 ML Darbepoetin [place] (ARANESP for DIALYSIS PTS) 60 mcg WEEKLYHS 12/19/19 21:00 12/19/19 21:20 60 MCG Dextrose (Dextrose 50%-Water Syringe) 12.5 gm PRN Q15MIN PRN 12/20/19 17:15 UNV Enoxaparin Sodium (Lovenox 30mg Syringe) 30 mg Q24H 12/12/19 12:00 12/21/19 12:42 30 MG Fentanyl Citrate 30 ml @ 2.5 mls/hr CONT PRN 12/13/19 10:15 12/21/19 12:49 2.5 MLS/HR Ferrous Sulfate (Feosol) 325 mg DAILY08 12/10/19 17:00 12/21/19 09:57 325 MG Fluticasone Propionate (Flonase) 2 spray DAILY 12/11/19 09:00 12/21/19 11:07 DC 12/16/19 09:00 2 SPRAY Furosemide 100 mg/ Sodium Chloride 100 ml @ 5 mls/hr Q20H 12/21/19 15:00 Glipizide (Glucotrol) 5 mg DAILYWSUP 12/10/19 17:00 12/11/19 08:03 DC 12/10/19 17:18 5 MG Hydrochlorothiazide (Hydrodiuril) 25 mg DAILY 12/10/19 17:00 12/16/19 12:52 DC 12/16/19 09:04 25 MG Hydroxychloroquine Sulfate (Plaquenil) 200 mg BID 12/18/19 11:00 12/18/19 21:01 DC 12/18/19 22:23 200 MG Info (Tpn Per Pharmacy) 1 each PRN DAILY PRN 12/16/19 13:00 12/21/19 11:53 1 EACH Insulin Glargine (Lantus Syringe) 24 unit DAILY@1800 12/21/19 18:00 Insulin Human Lispro (HumaLOG) 0-5 UNITS Q6HRS 12/20/19 18:00 12/21/19 12:45 4 UNITS Lactobacillus Rhamnosus (Culturelle) 1 cap BID 12/11/19 21:00 12/15/19 08:34 DC 12/14/19 20:48 1 CAP Levothyroxine Sodium (Synthroid) 50 mcg DAILY06 12/11/19 06:00 12/21/19 11:07 DC 12/21/19 05:50 50 MCG Linezolid/Dextrose 300 ml @ 300 mls/hr Q12HR 12/19/19 21:00 12/21/19 09:55 300 MLS/HR Lisinopril (Prinivil) 10 mg DAILY 12/10/19 17:00 12/18/19 11:12 DC 12/18/19 10:03 10 MG Metoclopramide HCl (Reglan Vial) 5 mg PRN Q6HRS PRN 12/18/19 09:15 12/18/19 09:55 5 MG Midazolam HCl 100 mg/Sodium Chloride 100 ml @ 1 mls/hr CONT PRN 12/16/19 12:15 12/20/19 23:36 1 MLS/HR Midazolam HCl 50 mg/Sodium Chloride 50 ml @ 1 mls/hr CONT PRN 12/16/19 12:15 12/16/19 12:10 DC Morphine Sulfate (Morphine Sulfate) 4 mg PRN Q1HR PRN 12/13/19 10:15 12/13/19 12:40 4 MG Non-Formulary Medication (Carboxymethylcellulose Sodium (Lubricant Eye Drops)) 1 each HS 12/10/19 21:00 UNV Norepinephrine Bitartrate 8 mg/ Dextrose 258 ml @ 13.545 mls/ hr CONT PRN 12/13/19 15:30 12/16/19 05:15 7.9 MLS/HR Ondansetron HCl (Zofran) 4 mg PRN Q6HRS PRN 12/18/19 09:15 12/18/19 09:55 4 MG Pantoprazole Sodium (PROTONIX VIAL for IV PUSH) 40 mg DAILYAC 12/17/19 09:00 12/21/19 11:07 DC 12/21/19 09:56 40 MG Pantoprazole Sodium (Protonix) 40 mg DAILYAC 12/10/19 16:30 12/17/19 07:44 DC 12/16/19 09:04 40 MG Piperacillin Sod/ Tazobactam Sod 2.25 gm/Sodium Chloride 50 ml @ 100 mls/hr Q6HRS 12/19/19 18:00 12/21/19 12:42 100 MLS/HR Piperacillin Sod/ Tazobactam Sod 3.375 gm/Sodium Chloride 50 ml @ 100 mls/hr Q6HRS 12/13/19 10:00 12/19/19 12:21 DC 12/19/19 11:39 100 MLS/HR Piperacillin Sod/ Tazobactam Sod 4.5 gm/Sodium Chloride 100 ml @ 200 mls/hr Q6HRS 12/13/19 12:00 UNV Propofol 100 ml @ As Directed STK-MED ONCE 12/13/19 09:33 12/13/19 14:12 DC Simvastatin (Zocor) 20 mg QHS 12/10/19 21:00 12/13/19 11:28 DC 12/11/19 21:31 20 MG Sodium Bicarbonate 50 meq/Sodium Chloride 1,050 ml @ 100 mls/hr [id number] 12/17/19 12:30 12/21/19 08:00 DC 12/20/19 18:49 100 MLS/HR Sodium Polystyrene Sulfonate (Kayexalate) 15 gm 1X ONCE 12/09/19 13:45 12/09/19 13:46 DC 12/09/19 14:35 15 GM Sodium Acetate 60 meq/Potassium Chloride 10 meq/ Potassium Phosphate 10 mmol/ Calcium Gluconate 5 meq/ Multivitamins 10 ml/Chromium/ Copper/Manganese/ Seleni/Zn 0.5 ml/ Total Parenteral Nutrition/Amino Acids/Dextrose/ Fat Emulsion Intravenous 1,200 ml @ 50 mls/hr TPN CONT 12/21/19 22:00 12/22/19 21:59 Sodium Acetate 60 meq/Potassium Chloride 20 meq/ Potassium Phosphate 10 mmol/ Magnesium Sulfate 10 meq/Calcium Gluconate 10 meq/ Multivitamins 10 ml/Chromium/ Copper/Manganese/ Seleni/Zn 0.5 ml/ Total Parenteral Nutrition/Amino Acids/Dextrose 1,200 ml @ 50 mls/hr TPN CONT 12/16/19 22:00 12/17/19 21:59 DC 12/16/19 22:24 50 MLS/HR Sodium Acetate 60 meq/Potassium Chloride 20 meq/ Potassium Phosphate 10 mmol/ Magnesium Sulfate 10 meq/Calcium Gluconate 10 meq/ Multivitamins 10 ml/Chromium/ Copper/Manganese/ Seleni/Zn 0.5 ml/ Total Parenteral Nutrition/Amino Acids/Dextrose/ Fat Emulsion Intravenous 1,200 ml @ 50 mls/hr TPN CONT 12/17/19 22:00 12/18/19 21:59 DC 12/17/19 23:00 50 MLS/HR Sodium Bicarbonate (Sodium Bicarb Adult 8.4% Syr) 50 meq 1X ONCE 12/17/19 08:45 12/17/19 08:47 DC 12/17/19 09:31 50 MEQ Sodium Chloride 500 ml @ 500 mls/hr 1X ONCE 12/18/19 09:15 12/18/19 10:14 DC 12/18/19 09:15 500 MLS/HR Tamsulosin HCl (Flomax) 0.4 mg DAILY 12/10/19 17:00 12/21/19 11:07 DC 12/21/19 09:58 0.4 MG Vancomycin HCl (Vanco Per Pharmacy) 1 each PRN DAILY PRN 12/13/19 09:00 12/19/19 14:26 DC 12/18/19 10:49 1 EACH Vancomycin HCl (Vancomycin Random Level) 1 each 1X ONCE 12/14/19 05:00 12/14/19 05:01 DC 12/14/19 04:52 1 EACH Vancomycin HCl (Vancomycin Trough Level) 1 each 1X ONCE 12/19/19 10:30 12/19/19 10:31 DC 12/19/19 09:47 1 EACH Vancomycin HCl 1.5 gm/Sodium Chloride 500 ml @ 250 mls/hr 1X ONCE 12/13/19 10:00 12/13/19 11:59 DC 12/13/19 11:11 250 MLS/HR Vancomycin HCl 1 gm/Sodium Chloride 250 ml @ 250 mls/hr Q36H 12/17/19 23:00 12/19/19 14:25 DC 12/19/19 11:39 250 MLS/HR Vecuronium [place] (Norcuron Bolus) 6 mg Q4HRS PRN 12/17/19 08:45 12/17/19 11:46 6 MG Warfarin Sodium (Coumadin Per Physician) 1 each PRN DAILY PRN 12/10/19 16:30 12/10/19 16:44 DC Warfarin Sodium (Coumadin) 3 mg 1X 12/10/19 16:00 12/10/19 16:44 DC Zinc Sulfate (Orazinc) 220 mg DAILY 12/17/19 15:00 12/21/19 11:07 DC 12/21/19 09:57 220 MG Lab Laboratory Tests Test 12/20/19 17:34 12/20/19 23:41 12/21/19 05:45 12/21/19 06:03 Glucose (Fingerstick) 145 mg/dL (70-99) 152 mg/dL (70-99) 247 mg/dL (70-99) Sodium Level 139 mmol/L (136-145) Potassium Level 3.7 mmol/L (3.5-5.1) Chloride Level 104 mmol/L (98-107) Carbon Dioxide Level 20 mmol/L (21-32) Anion Gap 15 (6-14) Blood Urea Nitrogen 75 mg/dL (8-26) Creatinine 4.2 mg/dL (0.7-1.3) Estimated GFR (Cockcroft-Gault) 16.4 Glucose Level 198 mg/dL (70-99) Calcium Level 6.9 mg/dL (8.5-10.1) Phosphorus Level 3.6 mg/dL (2.6-4.7) Magnesium Level 2.2 mg/dL (1.8-2.4) Test 12/21/19 09:00 O2 Saturation 92 % (92-99) Arterial Blood pH 7.26 (7.35-7.45) Arterial Blood pCO2 at Patient Temp 44 mmHg (35-46) Arterial Blood pO2 at Patient Temp 74 mmHg (65-108) Arterial Blood HCO3 20 mmol/L (21-28) Arterial Blood Base Excess -7 mmol/L (-3-3) FiO2 80 Results All relevant outside records, renal labs, imaging studies, telemetry/EKG's were reviewed. ANANT SPENCER MD Dec 21, 2019 15:10
[2019-12-21] MEDS ORDERED: ALBUMIN HUMAN 25% 100 ML IV PRN (15:15)
[2019-12-21] MEDS ORDERED: CALCIUM CHLORIDE 2,000 MG in IV NORMAL SALINE 100ML 100 ML IV ONE (15:15)
[2019-12-21] MEDS: FUROSEMIDE INJ 100 MG in IV NORMAL SALINE 100ML 100 ML IV SCH (15:26)
[2019-12-21] MEDS: SODIUM BICARB ADULT 8.4% 50 MEQ/50 ML DISP.SYRIN. IV SCH ×2 (15:32→16:57)
[2019-12-21] MEDS: INSULIN GLARGINE SYRINGE. SQ SCH (17:04)
[2019-12-21] MEDS: MIDAZOLAM HCL 100 MG in IV NORMAL SALINE 100ML 100 ML IV PRN (18:42)
[2019-12-21] MEDS ORDERED: TOTAL PARENTERAL NUTRITION IV SCH ×9 (22:00)
[2019-12-21] MEDS ORDERED: AMINO ACID IV SCH ×9 (22:00)
[2019-12-21] MEDS ORDERED: [UNRECOGNIZED DRUG - OTHER] IV SCH ×9 (22:00)
[2019-12-21] MEDS ORDERED: DEXTROSE 70% IV SCH ×9 (22:00)
[2019-12-22] VITALS (26 sets, daily range): BP systolic 87–122; BP diastolic 40–54
[2019-12-22] MEDS: PIPERACILLIN/TAZOBACTAM 2.25 GM in IV NORMAL SALINE 50ML 50 ML IV SCH ×5 (00:29→23:48)
[2019-12-22] MEDS: INSULIN LISPRO 300 UNITS/3 ML VIAL. SQ SCH ×4 (00:55→23:47)
[2019-12-22] MEDS: MIDAZOLAM HCL 100 MG in IV NORMAL SALINE 100ML 100 ML IV PRN ×2 (06:33→16:59)
[2019-12-22 06:53] LABS: CALCIUM 8.2 mg/dL (8.5-10.1); CREATININE 5.3 mg/dL (0.7-1.3); GFR 12.5; POTASSIUM 4.3 mmol/L (3.5-5.1)
[2019-12-22] MEDS: FUROSEMIDE INJ 100 MG in IV NORMAL SALINE 100ML 100 ML IV SCH (08:58)
[2019-12-22] MEDS: amLODIPine BESYLATE 5 MG TABLET PO SCH (09:00)
--- NOTE | 2019-12-22 09:31 | PDOC ---
SUBJECTIVE ROS We were asked to see this gentleman for acute on chronic renal failure Intermittent sedated intubated on the ventilator in COVID-19 Precautions OBJECTIVE Vital Signs Vital Signs Date Time Temp Pulse Resp B/P (MAP) Pulse Ox O2 Delivery O2 Flow Rate FiO2 12/22/19 07:00 48 20 113/52 (72) 96 Ventilator 12/22/19 04:00 98.8 98.8 I & 0 Intake and Output 12/22/19 07:00 Intake Total 2817.48 ml Output Total 2254 ml Balance 563.48 ml IV Total 2417.48 ml Other 400 ml Output Urine Total 254 ml Gastric Drainage Total 2000 ml # Bowel Movements 1 PHYSICAL EXAM Physical Exam General Appearance: other (SEDATED) the vent Skin: warm Respiratory: ventilator Heart: S1S2 per the monitor Extremities: Edematous Neurology: other (SEDATED) Musculoskeletal: Other (SEDATED ON THE VENT) Assessment BIA-most likely associated with ATN and generalized illness associated with COVID-19. Poor Candidate for HD as has been previously documented. No significant response with Lasix either with regards to urine output CKD STAGE 3 WITH BASELINE CR OF 2.0. Given advanced age and other comorbidities as well as ongoing potentially terminal illness, is felt by all involved, that the patient was not significantly benefit from dialysis. Hence this will not be pursued at this time. He appears to be hemodynamically labile also ACUTE RESP [id number] FIO2 OF 70%: Continue IV Lasix drip for now COVID - 19 PNEUMONIA: iwth Lymphocytopenia: Poor prognosis as a result of this Possible underlying sepsis SEPSIS: Antibiotics will be deferred to ID Marginal hemodynamics: PRESSORS NEEDED. IV albumin if needed Marginal hypocalcemia: Magnesium is adequate. Suspect due to low albumin. No recent albumin levels. ThromboCytopenia: Appears to be associated with underlying illness discussed with nurse at bedside. Prognosis is extremely poor. Patient remains bradycardic COMMENT/RELEVANT DATA Meds Current Medications Medications (Trade) Dose Ordered Sig/Aga Start Time Stop Time Status Last Admin Dose Admin Acetaminophen (Tylenol Supp) 650 mg PRN Q6HRS PRN 12/12/19 07:45 12/15/19 17:55 650 MG Acetaminophen (Tylenol) 1,000 mg PRN Q6HRS PRN 12/09/19 15:30 12/09/19 18:00 DC Albumin Human 100 ml @ 100 mls/hr PRN Q8HRS PRN 12/21/19 15:15 Allopurinol (Zyloprim) 100 mg DAILY 12/10/19 17:00 12/22/19 08:05 DC 12/21/19 10:02 100 MG Amino Acids/ Glycerin/ Electrolytes 1,000 ml @ 50 mls/hr Q20H 12/12/19 10:15 12/16/19 21:59 DC 12/15/19 21:47 50 MLS/HR Amlodipine Besylate (Norvasc) 5 mg DAILY 12/10/19 17:00 12/21/19 09:59 5 MG Artificial Tears (Artificial Tears) 1 drop [id number] 12/10/19 17:00 12/10/19 16:44 DC Ascorbic Acid (Vitamin C) 500 mg DAILY 12/17/19 15:00 12/21/19 11:07 DC 12/21/19 09:57 500 MG Aspirin (Ecotrin) 81 mg DAILY 12/10/19 17:00 12/21/19 09:57 81 MG Azithromycin 250 ml @ 250 mls/hr 1X ONCE 12/10/19 16:30 12/10/19 17:29 UNV Azithromycin 250 mg/Sodium Chloride 250 ml @ 250 mls/hr Q24H 12/15/19 10:00 12/19/19 14:25 DC 12/19/19 09:32 250 MLS/HR Azithromycin 500 mg/Sodium Chloride 250 ml @ 250 mls/hr Q24H 12/10/19 18:00 12/13/19 11:18 DC 12/12/19 17:21 250 MLS/HR Calcium Chloride 2000 mg/Sodium Chloride 120 ml @ 240 mls/hr 1X ONCE 12/21/19 15:15 12/21/19 15:44 DC 12/21/19 15:48 240 MLS/HR Carbidopa/Levodopa (Sinemet 25/100) 2 tab TID 12/10/19 17:00 12/21/19 15:26 2 TAB Ceftriaxone Sodium (Rocephin) 1 gm Q24H 12/10/19 18:00 12/13/19 09:07 DC 12/12/19 17:24 1 GM Cetirizine HCl (ZyrTEC) 10 mg DAILY 12/10/19 17:00 12/21/19 11:07 DC 12/21/19 09:57 10 MG Chlorhexidine Gluconate (Peridex) 15 ml BID 12/13/19 21:00 12/21/19 23:02 15 ML Darbepoetin [place] (ARANESP for DIALYSIS PTS) 60 mcg WEEKLYHS 12/19/19 21:00 12/19/19 21:20 60 MCG Dextrose (Dextrose 50%-Water Syringe) 12.5 gm PRN Q15MIN PRN 12/20/19 17:15 UNV Enoxaparin Sodium (Lovenox 30mg Syringe) 30 mg Q24H 12/12/19 12:00 12/21/19 12:42 30 MG Fentanyl Citrate 30 ml @ 2.5 mls/hr CONT PRN 12/13/19 10:15 12/22/19 03:21 2.5 MLS/HR Ferrous Sulfate (Feosol) 325 mg DAILY08 12/10/19 17:00 12/21/19 09:57 325 MG Fluticasone Propionate (Flonase) 2 spray DAILY 12/11/19 09:00 12/21/19 11:07 DC 12/16/19 09:00 2 SPRAY Furosemide 100 mg/ Sodium Chloride 100 ml @ 5 mls/hr Q20H 12/21/19 15:00 12/22/19 08:58 5 MLS/HR Glipizide (Glucotrol) 5 mg DAILYWSUP 12/10/19 17:00 12/11/19 08:03 DC 12/10/19 17:18 5 MG Heparin Sodium (Porcine) (Heparin Sodium) 5,000 unit Q12H 12/22/19 09:00 Hydrochlorothiazide (Hydrodiuril) 25 mg DAILY 12/10/19 17:00 12/16/19 12:52 DC 12/16/19 09:04 25 MG Hydroxychloroquine Sulfate (Plaquenil) 200 mg BID 12/18/19 11:00 12/18/19 21:01 DC 12/18/19 22:23 200 MG Info (Tpn Per Pharmacy) 1 each PRN DAILY PRN 12/16/19 13:00 12/21/19 11:53 1 EACH Insulin Glargine (Lantus Syringe) 24 unit DAILY@1800 12/21/19 18:00 12/21/19 17:04 24 UNIT Insulin Human Lispro (HumaLOG) 0-5 UNITS Q6HRS 12/20/19 18:00 12/21/19 17:03 2 UNITS Lactobacillus Rhamnosus (Culturelle) 1 cap BID 12/11/19 21:00 12/15/19 08:34 DC 12/14/19 20:48 1 CAP Levothyroxine Sodium (Synthroid) 50 mcg DAILY06 12/11/19 06:00 12/21/19 11:07 DC 12/21/19 05:50 50 MCG Linezolid/Dextrose 300 ml @ 300 mls/hr Q12HR 12/19/19 21:00 12/22/19 08:58 300 MLS/HR Lisinopril (Prinivil) 10 mg DAILY 12/10/19 17:00 12/18/19 11:12 DC 12/18/19 10:03 10 MG Metoclopramide HCl (Reglan Vial) 5 mg PRN Q6HRS PRN 12/18/19 09:15 12/18/19 09:55 5 MG Midazolam HCl 100 mg/Sodium Chloride 100 ml @ 1 mls/hr CONT PRN 12/16/19 12:15 12/22/19 06:33 10 MLS/HR Midazolam HCl 50 mg/Sodium Chloride 50 ml @ 1 mls/hr CONT PRN 12/16/19 12:15 12/16/19 12:10 DC Morphine Sulfate (Morphine Sulfate) 4 mg PRN Q1HR PRN 12/13/19 10:15 12/13/19 12:40 4 MG Non-Formulary Medication (Carboxymethylcellulose Sodium (Lubricant Eye Drops)) 1 each HS 12/10/19 21:00 UNV Norepinephrine Bitartrate 8 mg/ Dextrose 258 ml @ 13.545 mls/ hr CONT PRN 12/13/19 15:30 12/16/19 05:15 7.9 MLS/HR Ondansetron HCl (Zofran) 4 mg PRN Q6HRS PRN 12/18/19 09:15 12/18/19 09:55 4 MG Pantoprazole Sodium (PROTONIX VIAL for IV PUSH) 40 mg DAILYAC 12/17/19 09:00 12/21/19 11:07 DC 12/21/19 09:56 40 MG Pantoprazole Sodium (Protonix) 40 mg DAILYAC 12/10/19 16:30 12/17/19 07:44 DC 12/16/19 09:04 40 MG Piperacillin Sod/ Tazobactam Sod 2.25 gm/Sodium Chloride 50 ml @ 100 mls/hr Q6HRS 12/19/19 18:00 12/22/19 06:32 100 MLS/HR Piperacillin Sod/ Tazobactam Sod 3.375 gm/Sodium Chloride 50 ml @ 100 mls/hr Q6HRS 12/13/19 10:00 12/19/19 12:21 DC 12/19/19 11:39 100 MLS/HR Piperacillin Sod/ Tazobactam Sod 4.5 gm/Sodium Chloride 100 ml @ 200 mls/hr Q6HRS 12/13/19 12:00 UNV Propofol 100 ml @ As Directed STK-MED ONCE 12/13/19 09:33 12/13/19 14:12 DC Simvastatin (Zocor) 20 mg QHS 12/10/19 21:00 12/13/19 11:28 DC 12/11/19 21:31 20 MG Sodium Bicarbonate 50 meq/Sodium Chloride 1,050 ml @ 100 mls/hr [id number] 12/17/19 12:30 12/21/19 08:00 DC 12/20/19 18:49 100 MLS/HR Sodium Polystyrene Sulfonate (Kayexalate) 15 gm 1X ONCE 12/09/19 13:45 12/09/19 13:46 DC 12/09/19 14:35 15 GM Sodium Acetate 60 meq/Potassium Chloride 10 meq/ Potassium Phosphate 10 mmol/ Calcium Gluconate 5 meq/ Multivitamins 10 ml/Chromium/ Copper/Manganese/ Seleni/Zn 0.5 ml/ Total Parenteral Nutrition/Amino Acids/Dextrose/ Fat Emulsion Intravenous 1,200 ml @ 50 mls/hr TPN CONT 12/21/19 22:00 12/22/19 21:59 12/21/19 21:27 50 MLS/HR Sodium Acetate 60 meq/Potassium Chloride 20 meq/ Potassium Phosphate 10 mmol/ Magnesium Sulfate 10 meq/Calcium Gluconate 10 meq/ Multivitamins 10 ml/Chromium/ Copper/Manganese/ Seleni/Zn 0.5 ml/ Total Parenteral Nutrition/Amino Acids/Dextrose 1,200 ml @ 50 mls/hr TPN CONT 12/16/19 22:00 12/17/19 21:59 DC 12/16/19 22:24 50 MLS/HR Sodium Acetate 60 meq/Potassium Chloride 20 meq/ Potassium Phosphate 10 mmol/ Magnesium Sulfate 10 meq/Calcium Gluconate 10 meq/ Multivitamins 10 ml/Chromium/ Copper/Manganese/ Seleni/Zn 0.5 ml/ Total Parenteral Nutrition/Amino Acids/Dextrose/ Fat Emulsion Intravenous 1,200 ml @ 50 mls/hr TPN CONT 12/17/19 22:00 12/18/19 21:59 DC 12/17/19 23:00 50 MLS/HR Sodium Bicarbonate (Sodium Bicarb Adult 8.4% Syr) 50 meq Q2HR 12/21/19 16:00 12/21/19 18:01 DC 12/21/19 16:57 50 MEQ Sodium Chloride 500 ml @ 500 mls/hr 1X ONCE 12/18/19 09:15 12/18/19 10:14 DC 12/18/19 09:15 500 MLS/HR Tamsulosin HCl (Flomax) 0.4 mg DAILY 12/10/19 17:00 12/21/19 11:07 DC 12/21/19 09:58 0.4 MG Vancomycin HCl (Vanco Per Pharmacy) 1 each PRN DAILY PRN 12/13/19 09:00 12/19/19 14:26 DC 12/18/19 10:49 1 EACH Vancomycin HCl (Vancomycin Random Level) 1 each 1X ONCE 12/14/19 05:00 12/14/19 05:01 DC 12/14/19 04:52 1 EACH Vancomycin HCl (Vancomycin Trough Level) 1 each 1X ONCE 12/19/19 10:30 12/19/19 10:31 DC 12/19/19 09:47 1 EACH Vancomycin HCl 1.5 gm/Sodium Chloride 500 ml @ 250 mls/hr 1X ONCE 12/13/19 10:00 12/13/19 11:59 DC 12/13/19 11:11 250 MLS/HR Vancomycin HCl 1 gm/Sodium Chloride 250 ml @ 250 mls/hr Q36H 12/17/19 23:00 12/19/19 14:25 DC 12/19/19 11:39 250 MLS/HR Vecuronium [place] (Norcuron Bolus) 6 mg Q4HRS PRN 12/17/19 08:45 12/17/19 11:46 6 MG Warfarin Sodium (Coumadin Per Physician) 1 each PRN DAILY PRN 12/10/19 16:30 12/10/19 16:44 DC Warfarin Sodium (Coumadin) 3 mg 1X 12/10/19 16:00 12/10/19 16:44 DC Zinc Sulfate (Orazinc) 220 mg DAILY 12/17/19 15:00 12/21/19 11:07 DC 12/21/19 09:57 220 MG Lab Laboratory Tests Test 12/21/19 17:00 12/22/19 00:54 12/22/19 06:25 12/22/19 06:27 Glucose (Fingerstick) 169 mg/dL (70-99) 108 mg/dL (70-99) 128 mg/dL (70-99) Sodium Level 134 mmol/L (136-145) Potassium Level 4.3 mmol/L (3.5-5.1) Chloride Level 100 mmol/L (98-107) Carbon Dioxide Level 23 mmol/L (21-32) Anion Gap 11 (6-14) Blood Urea Nitrogen 91 mg/dL (8-26) Creatinine 5.3 mg/dL (0.7-1.3) Estimated GFR (Cockcroft-Gault) 12.5 Glucose Level 133 mg/dL (70-99) Calcium Level 8.2 mg/dL (8.5-10.1) Results All relevant outside records, renal labs, imaging studies, telemetry/EKG's were reviewed. ANANT SPENCER MD Dec 22, 2019 09:31
--- NOTE | 2019-12-22 09:38 | PDOC ---
PROGRESS NOTES Chief Complaint Chief Complaint Covid 19 positive ARDS Respiratory failure requiring intubation and mechanical ventilation Acute renal failure secondary to vasomotor etiology most likely, worsening creatinine and minimal output. quite poor prognosis, going into multiorgan failure Normal anion gap acidosis Hypocalcemia Severe protein calorie malnutrition Normocytic anemia Pneumonia CKD stage 4 Debility Weakness Fevers Arthritis, diabetes, back surgery, knee surgery and thyroid surgery. Plan; Patient receiving linezolid and zosyn continue supportive measures vent management as per critical caregiver assisted living prognosis guarded DVT prohpylaxis: lovenox COVID-19 CRITERIA: The patient was evaluated during the global COVID-19 pandemic, and that diagnosis was suspected/considered upon their initial presentation. Their evaluation, treatment and testing was consistent with current guidelines for patients who present with complaints or symptoms that may be related to COVID-19. History of Present Illness History of Present Illness 12/22/2019 Patient seen and examined in the ICU He remains mechanically ventilated no acute events reported overnight. Chart reviewed Hemoglobin, platelet and increase in creatinine Discussed with RN Vitals Vitals Vital Signs Date Time Temp Pulse Resp B/P (MAP) Pulse Ox O2 Delivery O2 Flow Rate FiO2 12/22/19 07:00 48 20 113/52 (72) 96 Ventilator 12/22/19 04:00 98.8 98.8 Physical Exam General: Other (bucking the vent, we just ordered some paralytics) Heart: Regular rate, Normal S1, Normal S2, No murmurs, Other (tachycardic at 102 bpm distant S1-S2) Abdomen: Soft Extremities: No clubbing, No cyanosis Skin: No rashes, No breakdown Labs LABS Laboratory Tests Test 12/21/19 17:00 12/22/19 00:54 12/22/19 06:25 12/22/19 06:27 Glucose (Fingerstick) 169 mg/dL (70-99) 108 mg/dL (70-99) 128 mg/dL (70-99) Sodium Level 134 mmol/L (136-145) Potassium Level 4.3 mmol/L (3.5-5.1) Chloride Level 100 mmol/L (98-107) Carbon Dioxide Level 23 mmol/L (21-32) Anion Gap 11 (6-14) Blood Urea Nitrogen 91 mg/dL (8-26) Creatinine 5.3 mg/dL (0.7-1.3) Estimated GFR (Cockcroft-Gault) 12.5 Glucose Level 133 mg/dL (70-99) Calcium Level 8.2 mg/dL (8.5-10.1) Assessment and Plan Assessmemt and Plan Problems Medical Problems: (1) Bilateral pneumonia Status: Acute (2) Fever Status: Acute (3) Hypoglycemia Status: Acute (4) Renal insufficiency Status: Acute (5) Suspected 2019 novel coronavirus infection Status: Acute (6) Weakness Status: Acute Comment Review of Relevant I have reviewed the following items sammie (where applicable) has been applied. Labs Laboratory Tests Test 12/20/19 17:34 12/20/19 23:41 12/21/19 05:45 12/21/19 06:03 Glucose (Fingerstick) 145 mg/dL (70-99) 152 mg/dL (70-99) 247 mg/dL (70-99) Sodium Level 139 mmol/L (136-145) Potassium Level 3.7 mmol/L (3.5-5.1) Chloride Level 104 mmol/L (98-107) Carbon Dioxide Level 20 mmol/L (21-32) Anion Gap 15 (6-14) Blood Urea Nitrogen 75 mg/dL (8-26) Creatinine 4.2 mg/dL (0.7-1.3) Estimated GFR (Cockcroft-Gault) 16.4 Glucose Level 198 mg/dL (70-99) Calcium Level 6.9 mg/dL (8.5-10.1) Phosphorus Level 3.6 mg/dL (2.6-4.7) Magnesium Level 2.2 mg/dL (1.8-2.4) Test 12/21/19 09:00 12/21/19 17:00 12/22/19 00:54 12/22/19 06:25 O2 Saturation 92 % (92-99) Arterial Blood pH 7.26 (7.35-7.45) Arterial Blood pCO2 at Patient Temp 44 mmHg (35-46) Arterial Blood pO2 at Patient Temp 74 mmHg (65-108) Arterial Blood HCO3 20 mmol/L (21-28) Arterial Blood Base Excess -7 mmol/L (-3-3) FiO2 80 Glucose (Fingerstick) 169 mg/dL (70-99) 108 mg/dL (70-99) Sodium Level 134 mmol/L (136-145) Potassium Level 4.3 mmol/L (3.5-5.1) Chloride Level 100 mmol/L (98-107) Carbon Dioxide Level 23 mmol/L (21-32) Anion Gap 11 (6-14) Blood Urea Nitrogen 91 mg/dL (8-26) Creatinine 5.3 mg/dL (0.7-1.3) Estimated GFR (Cockcroft-Gault) 12.5 Glucose Level 133 mg/dL (70-99) Calcium Level 8.2 mg/dL (8.5-10.1) Test 12/22/19 06:27 Glucose (Fingerstick) 128 mg/dL (70-99) Laboratory Tests Test 12/21/19 17:00 12/22/19 00:54 12/22/19 06:25 12/22/19 06:27 Glucose (Fingerstick) 169 mg/dL (70-99) 108 mg/dL (70-99) 128 mg/dL (70-99) Sodium Level 134 mmol/L (136-145) Potassium Level 4.3 mmol/L (3.5-5.1) Chloride Level 100 mmol/L (98-107) Carbon Dioxide Level 23 mmol/L (21-32) Anion Gap 11 (6-14) Blood Urea Nitrogen 91 mg/dL (8-26) Creatinine 5.3 mg/dL (0.7-1.3) Estimated GFR (Cockcroft-Gault) 12.5 Glucose Level 133 mg/dL (70-99) Calcium Level 8.2 mg/dL (8.5-10.1) Microbiology 12/17/19 Blood Culture - Preliminary, Resulted NO GROWTH AFTER 3 DAYS Medications Current Medications Acetaminophen (Tylenol) 1,000 mg 1X ONCE PO ; Start 12/09/19 at 12:15; Stop 12/09/19 at 12:16; Status DC Sodium Chloride 1,000 ml @ 1,000 mls/hr Q1H IV Last administered on 12/09/19at 13:48; Start 12/09/19 at 12:01; Stop 12/09/19 at 13:00; Status DC Ceftriaxone Sodium (Rocephin) 1 gm 1X ONCE IVP Last administered on 12/09/19at 13:49; Start 12/09/19 at 13:30; Stop 12/09/19 at 13:31; Status DC Vancomycin HCl 250 ml @ 250 mls/hr 1X ONCE IV Last administered on 12/09/19at 13:49; Start 12/09/19 at 13:30; Stop 12/09/19 at 14:29; Status DC Dextrose (Dextrose 50%-Water Syringe) 12.5 gm 1X ONCE IV Last administered on 12/09/19at 13:48; Start 12/09/19 at 13:45; Stop 12/09/19 at 13:46; Status DC Sodium Polystyrene Sulfonate (Kayexalate) 15 gm 1X ONCE PO Last administered on 12/09/19at 14:35; Start 12/09/19 at 13:45; Stop 12/09/19 at 13:46; Status DC Sodium Chloride 1,000 ml @ 150 mls/hr Q6H40M IV Last administered on 12/10/19at 09:00; Start 12/09/19 at 13:46; Stop 12/10/19 at 13:45; Status DC Dextrose (Dextrose 50%-Water Syringe) 25 gm 1X ONCE IV Last administered on 12/09/19at 15:09; Start 12/09/19 at 15:00; Stop 12/09/19 at 15:02; Status DC Acetaminophen (Tylenol) 1,000 mg PRN Q6HRS PRN PO FEVER Last administered on 12/20/19at 12:51; Start 12/09/19 at 15:30 Acetaminophen (Tylenol) 1,000 mg PRN Q6HRS PRN PO FEVER; Start 12/09/19 at 15:30; Stop 12/09/19 at 18:00; Status DC Dextrose (Dextrose 50%-Water Syringe) 25 gm 1X ONCE IV Last administered on 12/09/19at 22:38; Start 12/09/19 at 22:30; Stop 12/09/19 at 22:31; Status DC Dextrose (Dextrose 50%-Water Syringe) 12.5 gm PRN Q15MIN PRN IV SEE COMMENTS Last administered on 12/12/19at 21:21; Start 12/10/19 at 00:30 Allopurinol (Zyloprim) 100 mg DAILY PO Last administered on 12/21/19 10:02; Start 12/10/19 at 17:00; Stop 12/22/19 at 08:05; Status DC Aspirin (Ecotrin) 81 mg DAILY PO Last administered on 12/21/19 09:57; Start 12/10/19 at 17:00 Ferrous Sulfate (Feosol) 325 mg DAILY08 PO Last administered on 12/21/19at 09:57; Start 12/10/19 at 17:00 Fluticasone Propionate (Flonase) 2 spray DAILY NS Last administered on 12/16/19at 09:00; Start 12/11/19 at 09:00; Stop 12/21/19 at 11:07; Status DC Glipizide (Glucotrol) 2.5 mg DAILYAC PO Last administered on 12/21/19 09:57; Start 12/11/19 at 07:30; Stop 12/21/19 at 11:07; Status DC Glipizide (Glucotrol) 5 mg DAILYWSUP PO Last administered on 12/10/19at 17:18; Start 12/10/19 at 17:00; Stop 12/11/19 at 08:03; Status DC Hydrochlorothiazide (Hydrodiuril) 25 mg DAILY PO Last administered on 12/16/19at 09:04; Start 12/10/19 at 17:00; Stop 12/16/19 at 12:52; Status DC Levothyroxine Sodium (Synthroid) 50 mcg DAILY06 PO Last administered on 12/21/19at 05:50; Start 12/11/19 at 06:00; Stop 12/21/19 at 11:07; Status DC Simvastatin (Zocor) 20 mg QHS PO Last administered on 12/11/19at 21:31; Start 12/10/19 at 21:00; Stop 12/13/19 at 11:28; Status DC Tamsulosin HCl (Flomax) 0.4 mg DAILY PO Last administered on 12/21/19 09:58; Start 12/10/19 at 17:00; Stop 12/21/19 at 11:07; Status DC Warfarin Sodium (Coumadin) 3 mg 1X PO ; Start 12/10/19 at 16:00; Stop 12/10/19 at 16:44; Status DC Amlodipine Besylate (Norvasc) 5 mg DAILY PO Last administered on 12/21/19at 09:59; Start 12/10/19 at 17:00 Non-Formulary Medication (Carboxymethylcellulose Sodium (Lubricant Eye Drops)) 1 each HS OP ; Start 12/10/19 at 21:00; Status UNV Pantoprazole Sodium (Protonix) 40 mg DAILYAC PO Last administered on 12/16/19at 09:04; Start 12/10/19 at 16:30; Stop 12/17/19 at 07:44; Status DC Artificial Tears (Artificial Tears) 1 drop [id number] OU ; Start 12/10/19 at 17:00; Stop 12/10/19 at 16:44; Status DC Cetirizine HCl (ZyrTEC) 10 mg DAILY PO Last administered on 12/21/19at 09:57; Start 12/10/19 at 17:00; Stop 12/21/19 at 11:07; Status DC Warfarin Sodium (Coumadin Per Physician) 1 each PRN DAILY PRN MC SEE COMMENTS; Start 12/10/19 at 16:30; Stop 12/10/19 at 16:44; Status DC Ceftriaxone Sodium (Rocephin) 1 gm Q24H IVP Last administered on 12/12/19at 17:24; Start 12/10/19 at 18:00; Stop 12/13/19 at 09:07; Status DC Azithromycin 250 ml @ 250 mls/hr 1X ONCE IV ; Start 12/10/19 at 16:30; Stop 12/10/19 at 17:29; Status UNV Lisinopril (Prinivil) 10 mg DAILY PO Last administered on 12/18/19at 10:03; Start 12/10/19 at 17:00; Stop 12/18/19 at 11:12; Status DC Azithromycin 500 mg/Sodium Chloride 250 ml @ 250 mls/hr Q24H IV Last administered on 12/12/19at 17:21; Start 12/10/19 at 18:00; Stop 12/13/19 at 11:18; Status DC Carbidopa/Levodopa (Sinemet 25/100) 2 tab TID PO Last administered on 12/21/19at 15:26; Start 12/10/19 at 17:00 Lactobacillus Rhamnosus (Culturelle) 1 cap BID PO Last administered on 12/14/19at 20:48; Start 12/11/19 at 21:00; Stop 12/15/19 at 08:34; Status DC Acetaminophen (Tylenol Supp) 650 mg PRN Q6HRS PRN TN MILD PAIN / TEMP Last administered on 12/15/19at 17:55; Start 12/12/19 at 07:45 Amino Acids/ Glycerin/ Electrolytes 1,000 ml @ 50 mls/hr Q20H IV Last administered on 12/15/19at 21:47; Start 12/12/19 at 10:15; Stop 12/16/19 at 21:59; Status DC Sodium Chloride 1,000 ml @ 75 mls/hr [id number] IV Last administered on 12/17/19at 09:22; Start 12/12/19 at 11:00; Stop 12/17/19 at 11:52; Status DC Enoxaparin Sodium (Lovenox 30mg Syringe) 30 mg Q24H SQ Last administered on 12/21/19at 12:42; Start 12/12/19 at 12:00 Hydroxychloroquine Sulfate (Plaquenil) 400 mg BID PO Last administered on 12/14/19at 20:48; Start 12/13/19 at 09:00; Stop 12/14/19 at 21:01; Status DC Hydroxychloroquine Sulfate (Plaquenil) 200 mg BID PO Last administered on 12/17/19at 22:59; Start 12/15/19 at 09:00; Stop 12/17/19 at 21:01; Status DC Piperacillin Sod/ Tazobactam Sod 4.5 gm/Sodium Chloride 100 ml @ 200 mls/hr Q6HRS IV ; Start 12/13/19 at 12:00; Status UNV Vancomycin HCl (Vanco Per Pharmacy) 1 each PRN DAILY PRN MC SEE COMMENTS Last administered on 12/18/19at 10:49; Start 12/13/19 at 09:00; Stop 12/19/19 at 14:26; Status DC Piperacillin Sod/ Tazobactam Sod 3.375 gm/Sodium Chloride 50 ml @ 100 mls/hr Q6HRS IV Last administered on 12/19/19at 11:39; Start 12/13/19 at 10:00; Stop 12/19/19 at 12:21; Status DC Vancomycin HCl 1.5 gm/Sodium Chloride 500 ml @ 250 mls/hr 1X ONCE IV Last administered on 12/13/19at 11:11; Start 12/13/19 at 10:00; Stop 12/13/19 at 11:59; Status DC Fentanyl Citrate 30 ml @ 2.5 mls/hr CONT PRN IV SEE PROTOCOL Last administered on 12/22/19at 03:21; Start 12/13/19 at 10:15 Chlorhexidine Gluconate (Peridex) 15 ml BID MM Last administered on 12/21/19at 23:02; Start 12/13/19 at 21:00 Morphine Sulfate (Morphine Sulfate) 2 mg PRN Q1HR PRN IV SEE COMMENTS.; Start 12/13/19 at 10:15 Morphine Sulfate (Morphine Sulfate) 4 mg PRN Q1HR PRN IV SEE COMMENTS. Last administered on 12/13/19at 12:40; Start 12/13/19 at 10:15 Propofol 100 ml @ 1.05 mls/hr CONT PRN IV SEE I/O RECORD Last administered on 12/16/19at 05:16; Start 12/13/19 at 10:30 Propofol 100 ml @ As Directed STK-MED ONCE IV ; Start 12/13/19 at 08:48; Stop 12/13/19 at 14:11; Status DC Propofol 100 ml @ As Directed STK-MED ONCE IV ; Start 12/13/19 at 09:33; Stop 12/13/19 at 14:12; Status DC Norepinephrine Bitartrate 8 mg/ Dextrose 258 ml @ 13.545 mls/ hr CONT PRN IV PER PROTOCOL Last administered on 12/16/19at 05:15; Start 12/13/19 at 15:30 Vancomycin HCl (Vancomycin Random Level) 1 each 1X ONCE MC Last administered on 12/14/19at 04:52; Start 12/14/19 at 05:00; Stop 12/14/19 at 05:01; Status DC Vancomycin HCl 1 gm/Sodium Chloride 250 ml @ 250 mls/hr Q48H IV Last administered on 12/16/19at 10:42; Start 12/14/19 at 09:00; Stop 12/16/19 at 12:01; Status DC Vancomycin HCl (Vancomycin Trough Level) 1 each 1X ONCE MC Last administered on 12/16/19at 08:30; Start 12/16/19 at 08:30; Stop 12/16/19 at 08:31; Status DC Vecuronium [place] (Norcuron Bolus) 10 mg STK-MED ONCE IV ; Start 12/14/19 at 12:43; Stop 12/14/19 at 12:43; Status DC Vecuronium [place] (Norcuron Bolus) 6 mg 1X ONCE IV Last administered on 12/14/19at 12:55; Start 12/14/19 at 12:45; Stop 12/14/19 at 12:52; Status DC Azithromycin 250 mg/Sodium Chloride 250 ml @ 250 mls/hr Q24H IV Last administered on 12/19/19at 09:32; Start 12/15/19 at 10:00; Stop 12/19/19 at 14:25; Status DC Vecuronium [place] (Norcuron Bolus) 10 mg STK-MED ONCE IV ; Start 12/16/19 at 10:45; Stop 12/16/19 at 10:45; Status DC Vecuronium [place] (Norcuron Bolus) 6 mg 1X ONCE IV ; Start 12/16/19 at 11:15; Stop 12/16/19 at 11:16; Status DC Vancomycin HCl 1 gm/Sodium Chloride 250 ml @ 250 mls/hr Q36H IV Last administered on 12/19/19at 11:39; Start 12/17/19 at 23:00; Stop 12/19/19 at 14:25; Status DC Midazolam HCl 50 mg/Sodium Chloride 50 ml @ 1 mls/hr CONT PRN IV SEE I/O RECORD; Start 12/16/19 at 12:15; Stop 12/16/19 at 12:10; Status DC Midazolam HCl 100 mg/Sodium Chloride 100 ml @ 1 mls/hr CONT PRN IV SEE I/O RECORD Last administered on 12/22/19at 06:33; Start 12/16/19 at 12:15 Vancomycin HCl (Vancomycin Trough Level) 1 each 1X ONCE MC Last administered on 12/19/19at 09:47; Start 12/19/19 at 10:30; Stop 12/19/19 at 10:31; Status DC Info (Tpn Per Pharmacy) 1 each PRN DAILY PRN MC SEE COMMENTS Last administered on 12/21/19at 11:53; Start 12/16/19 at 13:00 Sodium Acetate 60 meq/Potassium Chloride 20 meq/ Potassium Phosphate 10 mmol/ Magnesium Sulfate 10 meq/Calcium Gluconate 10 meq/ Multivitamins 10 ml/Chromium/ Copper/Manganese/ Seleni/Zn 0.5 ml/ Total Parenteral Nutrition/Amino Acids/Dextrose 1,200 ml @ 50 mls/hr TPN CONT IV Last administered on 12/16/19at 22:24; Start 12/16/19 at 22:00; Stop 12/17/19 at 21:59; Status DC Pantoprazole Sodium (PROTONIX VIAL for IV PUSH) 40 mg DAILYAC IVP Last administered on 12/21/19at 09:56; Start 12/17/19 at 09:00; Stop 12/21/19 at 11:07; Status DC Vecuronium [place] (Norcuron Bolus) 6 mg Q4HRS PRN IV VENT ASYNCHRONY Last administered on 12/17/19at 11:46; Start 12/17/19 at 08:45 Sodium Bicarbonate (Sodium Bicarb Adult 8.4% Syr) 50 meq 1X ONCE IV Last administered on 12/17/19at 09:31; Start 12/17/19 at 08:45; Stop 12/17/19 at 08:47; Status DC Sodium Bicarbonate 50 meq/Sodium Chloride 1,050 ml @ 100 mls/hr [id number] IV Last administered on 12/20/19at 18:49; Start 12/17/19 at 12:30; Stop 12/21/19 at 08:00; Status DC Sodium Acetate 60 meq/Potassium Chloride 20 meq/ Potassium Phosphate 10 mmol/ Magnesium Sulfate 10 meq/Calcium Gluconate 10 meq/ Multivitamins 10 ml/Chromium/ Copper/Manganese/ Seleni/Zn 0.5 ml/ Total Parenteral Nutrition/Amino Acids/Dextrose/ Fat Emulsion Intravenous 1,200 ml @ 50 mls/hr TPN CONT IV Last administered on 12/17/19at 23:00; Start 12/17/19 at 22:00; Stop 12/18/19 at 21:59; Status DC Ascorbic Acid (Vitamin C) 500 mg DAILY PO Last administered on 12/21/19 09:57; Start 12/17/19 at 15:00; Stop 12/21/19 at 11:07; Status DC Zinc Sulfate (Orazinc) 220 mg DAILY PO Last administered on 12/21/19 09:57; Start 12/17/19 at 15:00; Stop 12/21/19 at 11:07; Status DC Metoclopramide HCl (Reglan Vial) 10 mg PRN Q6HRS PRN IVP NAUSEA/VOMITING; Start 12/18/19 at 09:15; Stop 12/18/19 at 09:06; Status DC Ondansetron HCl (Zofran) 4 mg PRN Q6HRS PRN IVP NAUSEA/VOMITING Last administered on 12/18/19at 09:55; Start 12/18/19 at 09:15 Sodium Chloride 500 ml @ 500 mls/hr 1X ONCE IV Last administered on 12/18/19at 09:15; Start 12/18/19 at 09:15; Stop 12/18/19 at 10:14; Status DC Metoclopramide HCl (Reglan Vial) 5 mg PRN Q6HRS PRN IVP NAUSEA/VOMITING, 2ND CHOICE Last administered on 12/18/19at 09:55; Start 12/18/19 at 09:15 Sodium Acetate 60 meq/Potassium Chloride 10 meq/ Potassium Phosphate 10 mmol/ Calcium Gluconate 5 meq/ Multivitamins 10 ml/Chromium/ Copper/Manganese/ Seleni/Zn 0.5 ml/ Total Parenteral Nutrition/Amino Acids/Dextrose/ Fat Emulsion Intravenous 1,200 ml @ 50 mls/hr TPN CONT IV Last administered on 12/18/19at 22:25; Start 12/18/19 at 22:00; Stop 12/19/19 at 21:59; Status DC Hydroxychloroquine Sulfate (Plaquenil) 200 mg BID PO Last administered on 12/18/19at 22:23; Start 12/18/19 at 11:00; Stop 12/18/19 at 21:01; Status DC Darbepoetin [place]in (ARANESP for DIALYSIS PTS) 60 mcg WEEKLYHS SQ Last administered on 12/19/19at 21:20; Start 12/19/19 at 21:00 Piperacillin Sod/ Tazobactam Sod 2.25 gm/Sodium Chloride 50 ml @ 100 mls/hr Q6HRS IV Last administered on 12/22/19at 06:32; Start 12/19/19 at 18:00 Sodium Acetate 60 meq/Potassium Chloride 10 meq/ Potassium Phosphate 10 mmol/ Calcium Gluconate 5 meq/ Multivitamins 10 ml/Chromium/ Copper/Manganese/ Seleni/Zn 0.5 ml/ Total Parenteral Nutrition/Amino Acids/Dextrose/ Fat Emulsion Intravenous 1,200 ml @ 50 mls/hr TPN CONT IV Last administered on 12/19/19 21:20; Start 12/19/19 at 22:00; Stop 12/20/19 at 21:59; Status DC Linezolid/Dextrose 300 ml @ 300 mls/hr Q12HR IV Last administered on 12/22/19at 08:58; Start 12/19/19 at 21:00 Sodium Acetate 60 meq/Potassium Chloride 10 meq/ Potassium Phosphate 10 mmol/ C alcium Gluconate 5 meq/ Multivitamins 10 ml/Chromium/ Copper/Manganese/ Seleni/Zn 0.5 ml/ Total Parenteral Nutrition/Amino Acids/Dextrose/ Fat Emulsion Intravenous 1,200 ml @ 50 mls/hr TPN CONT IV Last administered on 12/20/19at 21:32; Start 12/20/19 at 22:00; Stop 12/21/19 at 21:59; Status DC Insulin Glargine (Lantus Syringe) 20 unit QHS SQ ; Start 12/20/19 at 17:00; Status Cancel Insulin Human Lispro (HumaLOG) 0-5 UNITS Q6HRS SQ Last administered on 12/21/19at 17:03; Start 12/20/19 at 18:00 Dextrose (Dextrose 50%-Water Syringe) 12.5 gm PRN Q15MIN PRN IV SEE COMMENTS; Start 12/20/19 at 16:45; Status Cancel Insulin Glargine (Lantus Syringe) 20 unit DAILY@1800 SQ Last administered on 12/20/19at 17:36; Start 12/20/19 at 18:00; Stop 12/21/19 at 11:07; Status DC Dextrose (Dextrose 50%-Water Syringe) 12.5 gm PRN Q15MIN PRN IV SEE COMMENTS; Start 12/20/19 at 17:15; Status UNV Insulin Glargine (Lantus Syringe) 24 unit DAILY@1800 SQ Last administered on 12/21/19at 17:04; Start 12/21/19 at 18:00 Sodium Acetate 60 meq/Potassium Chloride 10 meq/ Potassium Phosphate 10 mmol/ Calcium Gluconate 5 meq/ Multivitamins 10 ml/Chromium/ Copper/Manganese/ Janet bhaskar/Zn 0.5 ml/ Total Parenteral Nutrition/Amino Acids/Dextrose/ Fat Emulsion Intravenous 1,200 ml @ 50 mls/hr TPN CONT IV Last administered on 12/21/19at 21:27; Start 12/21/19 at 22:00; Stop 12/22/19 at 21:59 Furosemide 100 mg/ Sodium Chloride 100 ml @ 5 mls/hr Q20H IV Last administered on 12/22/19at 08:58; Start 12/21/19 at 15:00 Sodium Bicarbonate (Sodium Bicarb Adult 8.4% Syr) 50 meq Q2HR IV Last administered on 12/21/19at 16:57; Start 12/21/19 at 16:00; Stop 12/21/19 at 18:01; Status DC Calcium Chloride 2000 mg/Sodium Chloride 120 ml @ 240 mls/hr 1X ONCE IV Last administered on 12/21/19at 15:48; Start 12/21/19 at 15:15; Stop 12/21/19 at 15:44; Status DC Albumin Human 100 ml @ 100 mls/hr PRN Q8HRS PRN IV for MAP Less than 65; Start 12/21/19 at 15:15 Heparin Sodium (Porcine) (Heparin Sodium) 5,000 unit Q12H SQ ; Start 12/22/19 at 09:00 Active Scripts Active Reported Carbidopa-Levodopa 25-100 Tab (Carbidopa/Levodopa) 1 Each Tablet 50-200 PO TID Fluticasone Propionate Nasal [place] (Fluticasone Propionate) 16 Gm [place].susp 2 [place] NS DAILY last dos this am next dose tomorrow am (monday) Glipizide 5 Mg Tablet 5 Mg PO DAILYWSUP last dose last night next dose tonight with supper Glipizide 5 Mg Tablet 2.5 Mg PO DAILY last dose this am (next dose tomorrow am monday) Loratadine 10 Mg Tablet 10 Mg PO last dose this am next dose tomorrow am(monday) Omeprazole 20 Mg Capsule.dr 20 Mg PO DAILY last dose this am next dose tomorrow am (monday) Ferrous Sulfate 325 Mg Tablet 1 Tab PO DAILY last dose this am next dose tonight Amlodipine-Benazepril 5-10 Mg (Amlodipine Besylate/Benazepril) 1 Each Capsule 1 Cap PO DAILY last dos this am next dose tomorrow am (monday) Tamsulosin Hcl 0.4 Mg Cap.er.24h 1 Cap PO DAILY last dose this am next dose tomorrow am (monday) Simvastatin 20 Mg Tablet 1 Tab PO QHS last dose last evening next dose tonight Hydrochlorothiazide Tablet (Hydrochlorothiazide) 25 Mg Tablet 1 Tab PO DAILY last dos this am next dose tomorrow am (monday) Allopurinol 100 Mg Tablet 1 Tab PO DAILY last dose this am next dose tomorrow on monday Levothyroxine Sodium 50 Mcg Tablet 1 Tab PO DAILY last dose this am next dose tomorrow am (monday) Vitals/I & O Vital Sign - Last 24 Hours 12/21/19 12/21/19 12/21/19 12/21/19 09:59 10:00 11:00 12:00 Pulse 66 64 66 Resp 20 22 B/P (MAP) 126/54 115/53 (73) 132/55 (80) Pulse Ox 95 95 93 O2 Delivery Ventilator Ventilator Ventilator 12/21/19 12/21/19 12/21/19 12/21/19 12:00 12:00 12:49 13:00 Temp 97.6 97.6 Pulse 64 64 Resp 22 24 20 B/P (MAP) 134/53 (80) 127/57 (80) Pulse Ox 95 95 95 O2 Delivery Mechanical Ventilator Ventilator Ventilator Ventilator 12/21/19 12/21/19 12/21/19 12/21/19 13:29 14:00 15:00 16:00 Pulse 66 64 Resp 22 27 24 B/P (MAP) 124/62 (82) 93/54 (67) Pulse Ox 96 94 95 O2 Delivery Ventilator Ventilator Ventilator Mechanical Ventilator 12/21/19 12/21/19 12/21/19 12/21/19 16:00 17:00 17:30 18:00 Temp 98.5 98.5 Pulse 66 64 65 Resp 22 21 25 B/P (MAP) 110/56 (74) 111/53 (72) 111/54 (73) Pulse Ox 96 94 96 93 O2 Delivery Ventilator Ventilator Ventilator Ventilator 12/21/19 12/21/19 12/21/19 12/21/19 19:00 20:00 20:00 20:28 Pulse 62 58 B/P (MAP) 114/54 (74) 107/52 (70) Pulse Ox 94 94 96 O2 Delivery Ventilator Mechanical Ventilator Ventilator Ventilator 12/21/19 12/21/19 12/21/19 12/21/19 21:00 22:00 23:00 23:59 Temp 97.8 97.8 Pulse 58 48 50 B/P (MAP) 108/52 (70) 102/38 (59) 114/46 (68) Pulse Ox 90 98 96 O2 Delivery Ventilator Ventilator Ventilator Mechanical Ventilator 12/21/19 12/22/19 12/22/19 12/22/19 23:59 00:05 01:00 01:12 Temp 98.6 98.6 Pulse 50 50 B/P (MAP) 110/48 (68) 122/49 (73) Pulse Ox 97 96 96 O2 Delivery Ventilator Ventilator Ventilator 12/22/19 12/22/19 12/22/19 12/22/19 02:00 03:00 03:21 04:00 Pulse 46 47 Resp 20 20 B/P (MAP) 90/44 (59) 93/40 (57) Pulse Ox 97 97 96 O2 Delivery Ventilator Ventilator Ventilator Mechanical Ventilator 12/22/19 12/22/19 12/22/19 12/22/19 04:00 05:00 05:01 06:00 Temp 98.8 98.8 Pulse 46 50 47 Resp 20 20 20 B/P (MAP) 96/45 (62) 111/54 (73) 119/51 (73) Pulse Ox 97 96 96 96 O2 Delivery Ventilator Ventilator Ventilator Ventilator 12/22/19 12/22/19 07:00 07:00 Pulse 48 48 Resp 26 20 B/P (MAP) 113/52 (72) 113/52 (72) Pulse Ox 96 96 O2 Delivery Ventilator Ventilator Intake and Output 12/21/19 12/21/19 12/22/19 15:00 23:00 07:00 Intake Total 400 ml 1718.48 ml 699 ml Output Total 130 ml 86 ml 2038 ml Balance 270 ml 1632.48 ml -1339 ml Nutrition Consultation Dietary Evaluation: Recommendations by RD: Dietary education by RD, Increase Calorie Intake, PPN/TPN Comments: Continue w/TPN per current order: 225 g dextrose, 85 g AA, 20 g lipids If pt stable and apprpriate for enteral nutrition (no vomiting, no bowel ischemia), would recommend consideration of TFs to support gut function, recommend TFs per following: VitalAF@goal rate 50 ml/hr w/125 ml water flushes q4 hrs. REC TFs@10 ml/hr when pt in prone position w/minimal water flushes (~50 ml q6 hrs or as appropriate per MD) to minimize aspiration risk Expected Outcomes/Goals: New goal 12/16: Nutrition support to meet >65% estimated nutrition needs while pt remains intubated - met, goal ongoing Interpretation of weight loss: >5% in 1 month Malnutrition Findings: Food and Nutrition Intake (Sev: <50% est energy req 5days Weight Status: Appropriate DANTE CAGE MD Dec 22, 2019 09:38
[2019-12-22] MEDS: TPN PER PHARMACY MC PRN (09:55)
[2019-12-22 10:16] LABS: BASE EXCESS ABG -5 mmol/L (-3-3); HCO3 ABG 21 mmol/L (21-28); PCO2 ABG 45 mmHg (35-46); PO2 ABG 66 mmHg (65-108); SAT O2 ABG 92 % (92-99)
[2019-12-22 10:33] LABS: FIO2 ABG 70
--- NOTE | 2019-12-22 11:01 | PDOC ---
PULMONARY PROGRESS NOTES Subjective Pt intubated/ sedated on PC mode, 70%FIO2/ 8 PEEP worsening renal failure Vitals Vital Signs Date Time Temp Pulse Resp B/P (MAP) Pulse Ox O2 Delivery O2 Flow Rate FiO2 12/22/19 10:00 51 12 112/52 (72) 98 Ventilator 12/22/19 08:00 98.8 98.8 Comments Visual exam done intubated/ sedated , no obvious JVD, no rash, trace edema Abdomen: Soft Labs Laboratory Tests Test 12/20/19 17:34 12/20/19 23:41 12/21/19 05:45 12/21/19 06:03 Glucose (Fingerstick) 145 mg/dL (70-99) 152 mg/dL (70-99) 247 mg/dL (70-99) Sodium Level 139 mmol/L (136-145) Potassium Level 3.7 mmol/L (3.5-5.1) Chloride Level 104 mmol/L (98-107) Carbon Dioxide Level 20 mmol/L (21-32) Anion Gap 15 (6-14) Blood Urea Nitrogen 75 mg/dL (8-26) Creatinine 4.2 mg/dL (0.7-1.3) Estimated GFR (Cockcroft-Gault) 16.4 Glucose Level 198 mg/dL (70-99) Calcium Level 6.9 mg/dL (8.5-10.1) Phosphorus Level 3.6 mg/dL (2.6-4.7) Magnesium Level 2.2 mg/dL (1.8-2.4) Test 12/21/19 09:00 12/21/19 17:00 12/22/19 00:54 12/22/19 06:25 O2 Saturation 92 % (92-99) Arterial Blood pH 7.26 (7.35-7.45) Arterial Blood pCO2 at Patient Temp 44 mmHg (35-46) Arterial Blood pO2 at Patient Temp 74 mmHg (65-108) Arterial Blood HCO3 20 mmol/L (21-28) Arterial Blood Base Excess -7 mmol/L (-3-3) FiO2 80 Glucose (Fingerstick) 169 mg/dL (70-99) 108 mg/dL (70-99) Sodium Level 134 mmol/L (136-145) Potassium Level 4.3 mmol/L (3.5-5.1) Chloride Level 100 mmol/L (98-107) Carbon Dioxide Level 23 mmol/L (21-32) Anion Gap 11 (6-14) Blood Urea Nitrogen 91 mg/dL (8-26) Creatinine 5.3 mg/dL (0.7-1.3) Estimated GFR (Cockcroft-Gault) 12.5 Glucose Level 133 mg/dL (70-99) Calcium Level 8.2 mg/dL (8.5-10.1) Test 12/22/19 06:27 12/22/19 09:15 Glucose (Fingerstick) 128 mg/dL (70-99) O2 Saturation 92 % (92-99) Arterial Blood pH 7.30 (7.35-7.45) Arterial Blood pCO2 at Patient Temp 45 mmHg (35-46) Arterial Blood pO2 at Patient Temp 66 mmHg (65-108) Arterial Blood HCO3 21 mmol/L (21-28) Arterial Blood Base Excess -5 mmol/L (-3-3) FiO2 70 Laboratory Tests Test 12/21/19 17:00 12/22/19 00:54 12/22/19 06:25 12/22/19 06:27 Glucose (Fingerstick) 169 mg/dL (70-99) 108 mg/dL (70-99) 128 mg/dL (70-99) Sodium Level 134 mmol/L (136-145) Potassium Level 4.3 mmol/L (3.5-5.1) Chloride Level 100 mmol/L (98-107) Carbon Dioxide Level 23 mmol/L (21-32) Anion Gap 11 (6-14) Blood Urea Nitrogen 91 mg/dL (8-26) Creatinine 5.3 mg/dL (0.7-1.3) Estimated GFR (Cockcroft-Gault) 12.5 Glucose Level 133 mg/dL (70-99) Calcium Level 8.2 mg/dL (8.5-10.1) Test 12/22/19 09:15 O2 Saturation 92 % (92-99) Arterial Blood pH 7.30 (7.35-7.45) Arterial Blood pCO2 at Patient Temp 45 mmHg (35-46) Arterial Blood pO2 at Patient Temp 66 mmHg (65-108) Arterial Blood HCO3 21 mmol/L (21-28) Arterial Blood Base Excess -5 mmol/L (-3-3) FiO2 70 Medications Active Scripts Medications Dose Route/Sig Max Daily Dose Days Date Category Dose Instructions Warfarin Sodium 3 Mg Tablet 1 Tab PO 1X 09/28/17 Reported Fluticasone Propionate Nasal Hammond (Fluticasone Propionate) 16 Gm Hammond.susp 2 Hammond NS DAILY 09/25/17 Reported last dos this am next dose tomorrow am (monday) Lubricant Eye Drops (Propylene Glycol) 10 Ml Drops 10 Ml OP [id number] 09/25/17 Reported last dose after lunch next dose with supper/ bedtime Lubricant Eye Drops (Carboxymethylcellulose Sodium) 1 Each Droperette 1 Each OP HS 09/25/17 Reported last dose last evening next dosetonight provided his own Glipizide 5 Mg Tablet 5 Mg PO DAILYWSUP 07/12/16 Reported last dose last night next dose tonight with supper Glipizide 5 Mg Tablet 2.5 Mg PO DAILY 07/12/16 Reported last dose this am (next dose tomorrow am monday) Loratadine 10 Mg Tablet 10 Mg PO 06/27/16 Reported last dose this am next dose tomorrow am(monday) Omeprazole 20 Mg Capsule.dr 20 Mg PO DAILY 06/27/16 Reported last dose this am next dose tomorrow am (monday) Ferrous Sulfate 325 Mg Tablet 1 Tab PO DAILY 06/27/16 Reported last dose this am next dose tonight Aspir 81 (Aspirin) 81 Mg Tablet.dr 81 Mg PO DAILY 06/27/16 Reported Amlodipine-Benazepril 5-10 Mg (Amlodipine Besylate/Benazepril) 1 Each Capsule 1 Cap PO DAILY 06/27/16 Reported last dos this am next dose tomorrow am (monday) Tamsulosin Hcl 0.4 Mg Cap.er.24h 1 Cap PO DAILY 10/06/14 Reported last dose this am next dose tomorrow am (monday) Simvastatin 20 Mg Tablet 1 Tab PO QHS 10/06/14 Reported last dose last evening next dose tonight Hydrochlorothiazide Tablet (Hydrochlorothiazide) 25 Mg Tablet 1 Tab PO DAILY 10/06/14 Reported last dos this am next dose tomorrow am (monday) Allopurinol 100 Mg Tablet 1 Tab PO DAILY 10/06/14 Reported last dose this am next dose tomorrow on monday Levothyroxine Sodium 50 Mcg Tablet 1 Tab PO DAILY 10/06/14 Reported last dose this am next dose tomorrow am (monday) Comments CXR / diffuse interstitial infiltrates bilateral, slightly worse Impression . This is an 84-year-old, who presents with comorbidities including debility, diabetes, and chronic kidney disease on top of acute kidney disease with abnormal chest x-ray/ hypoxia/ RF 1. Acute respiratory failure secondary ARDS 2. Pneumonia, COVID-19 positive test (U07.1, COVID-19) with Acute Pneumonia (J12.89, Other viral pneumonia) (If respiratory failure or sepsis present, add as separate assessment) 3. diabetes 4. Abnormal chest x-ray, suspect superimposed bacterial pneumonia (gram-negative gram-positive), underlying viral pneumonia 5. Septic shock, off levoped 6. Protein malnutrition present upon admission 7. Acute kidney injury,worse 8. Metabolic acidosis due to BIA 9. Severe PCM Labs reviewed, chest x-ray reviewed Plan . Continue PC mode,high FIO2 70%, PEEP 8. Follow ABG and make necessary adjustments . PAP in 30'. OK with permissive hypercapnia PRN paralytics sedation Prone positioning per protocol. Follow CXR and Labs Empiric hydro-hydroxychloroquine, Zithromax ( dc at day 5) Continue vancomycin and Zosyn DVT GI prophylaxis Nutritional support with TPN worsening renal function, follow renal rec. would not rec HD The above was discussed with RN and RT Total cumulative critical care time of 30 minutes reviewing data, labs, chest x- ray, and managing vent prognosis guarded/ DNR ADITYA FERREIRA MD Dec 22, 2019 11:01
[2019-12-22] MEDS: HEPARIN for SUB-Q USE 5,000 UNIT/ML VIAL. SQ SCH ×2 (11:09→21:05)
[2019-12-22] MEDS: CARBIDOPA/LEVODOPA 25/100MG TABLET PO SCH ×3 (11:11→21:04)
[2019-12-22] MEDS: FERROUS SULFATE 325 MG TABLET. PO SCH (11:11)
[2019-12-22] MEDS: ASPIRIN ENTERIC COATED 81 MG TABLET.DR. PO SCH (11:11)
[2019-12-22] MEDS: CHLORHEXIDINE 0.12% 15 ML MOUTHWASH. MM SCH ×2 (11:29→21:04)
[2019-12-22] MEDS: INSULIN GLARGINE SYRINGE. SQ SCH (20:20)
[2019-12-22] MEDS ORDERED: HEPARIN for SUB-Q USE 5,000 UNIT/ML VIAL. SQ SCH (21:00)
[2019-12-22] MEDS ORDERED: AMINO ACID IV SCH ×7 (22:00)
[2019-12-22] MEDS ORDERED: DEXTROSE 70% IV SCH ×7 (22:00)
[2019-12-22] MEDS ORDERED: [UNRECOGNIZED DRUG - OTHER] IV SCH ×7 (22:00)
[2019-12-22] MEDS ORDERED: TOTAL PARENTERAL NUTRITION IV SCH ×7 (22:00)
[2019-12-23] VITALS (25 sets, daily range): BP systolic 75–137; BP diastolic 40–61
[2019-12-23] MEDS: MIDAZOLAM HCL 100 MG in IV NORMAL SALINE 100ML 100 ML IV PRN ×3 (03:16→23:55)
[2019-12-23] MEDS: INSULIN LISPRO 300 UNITS/3 ML VIAL. SQ SCH ×3 (06:16→18:00)
[2019-12-23] MEDS: PIPERACILLIN/TAZOBACTAM 2.25 GM in IV NORMAL SALINE 50ML 50 ML IV SCH ×4 (06:16→23:49)
--- NOTE | 2019-12-23 06:52 | RAD ---
EXAM: CHEST ONE VIEW. HISTORY: Ventilated, respiratory failure. COMPARISON: 12/20/2019. FINDINGS: A frontal view of the chest is obtained. An endotracheal tube it is not well demonstrated but appears to have its tip 6 cm above the renzo. A nasogastric tube has its tip in the fundus of the stomach. A left arm PICC line has its tip in the superior cavoatrial junction. There are patchy interstitial and airspace opacities in both bases and mid lung zones. These appear mildly improved. Small pleural effusions may be present. There is no pneumothorax. The heart is not enlarged. IMPRESSION: 1. Bilateral basilar predominant infiltrates are mildly improved. Electronically signed by: Neil Mayo MD (12/23/2019 6:49 AM) [facility]
[2019-12-23 07:03] LABS: ALBUMIN/GLOBULIN RATIO 0.2 (1.0-1.7); CREATININE 6.2 mg/dL (0.7-1.3); GFR 10.4; MAGNESIUM 2.4 mg/dL (1.8-2.4); PHOSPHORUS 5.4 mg/dL (2.6-4.7); POTASSIUM 4.5 mmol/L (3.5-5.1); TOTAL BILIRUBIN 4.6 mg/dL (0.2-1.0); TOTAL PROTEIN 5.7 g/dL (6.4-8.2)
--- NOTE | 2019-12-23 08:08 | PDOC ---
PROGRESS NOTES Chief Complaint Chief Complaint Covid 19 positive ARDS Respiratory failure requiring intubation and mechanical ventilation Acute renal failure secondary to vasomotor etiology most likely, worsening creatinine and minimal output. quite poor prognosis, going into multiorgan failure Normal anion gap acidosis Hypocalcemia Severe protein calorie malnutrition Normocytic anemia Pneumonia CKD stage 4 Debility Weakness Fevers Arthritis, diabetes, back surgery, knee surgery and thyroid surgery. Plan; Patient receiving linezolid and zosyn continue supportive measures vent management as per critical career guidance counselor prognosis guarded DVT prohpylaxis: lovenox COVID-19 CRITERIA: The patient was evaluated during the global COVID-19 pandemic, and that diagnosis was suspected/considered upon their initial presentation. Their evaluation, treatment and testing was consistent with current guidelines for patients who present with complaints or symptoms that may be related to COVID-19. History of Present Illness History of Present Illness 12/22/2019 Patient seen and examined in the ICU He remains mechanically ventilated no acute events reported overnight. Chart reviewed Hemoglobin, platelet and increase in creatinine Discussed with RN Vitals Vitals Vital Signs Date Time Temp Pulse Resp B/P (MAP) Pulse Ox O2 Delivery O2 Flow Rate FiO2 12/23/19 07:00 42 22 101/44 (63) 94 Ventilator 12/23/19 04:00 98.8 98.8 12/22/19 18:00 15.0 Physical Exam General: Other (bucking the vent, we just ordered some paralytics) Heart: Regular rate, Normal S1, Normal S2, No murmurs, Other (tachycardic at 102 bpm distant S1-S2) Abdomen: Soft Extremities: No clubbing, No cyanosis Skin: No rashes, No breakdown Labs LABS Laboratory Tests Test 12/22/19 09:15 12/22/19 11:49 12/22/19 17:21 12/22/19 23:43 O2 Saturation 92 % (92-99) Arterial Blood pH 7.30 (7.35-7.45) Arterial Blood pCO2 at Patient Temp 45 mmHg (35-46) Arterial Blood pO2 at Patient Temp 66 mmHg (65-108) Arterial Blood HCO3 21 mmol/L (21-28) Arterial Blood Base Excess -5 mmol/L (-3-3) FiO2 70 Glucose (Fingerstick) 165 mg/dL (70-99) 160 mg/dL (70-99) 197 mg/dL (70-99) Test 12/23/19 06:00 12/23/19 06:14 Sodium Level 133 mmol/L (136-145) Potassium Level 4.5 mmol/L (3.5-5.1) Chloride Level 98 mmol/L (98-107) Carbon Dioxide Level 20 mmol/L (21-32) Anion Gap 15 (6-14) Blood Urea Nitrogen 102 mg/dL (8-26) Creatinine 6.2 mg/dL (0.7-1.3) Estimated GFR (Cockcroft-Gault) 10.4 BUN/Creatinine Ratio 16 (6-20) Glucose Level 210 mg/dL (70-99) Calcium Level 8.0 mg/dL (8.5-10.1) Phosphorus Level 5.4 mg/dL (2.6-4.7) Magnesium Level 2.4 mg/dL (1.8-2.4) Total Bilirubin 4.6 mg/dL (0.2-1.0) Aspartate Amino Transf (AST/SGOT) 47 U/L (15-37) Alanine Aminotransferase (ALT/SGPT) 7 U/L (16-63) Alkaline Phosphatase 46 U/L (46-116) Total Protein 5.7 g/dL (6.4-8.2) Albumin 1.0 g/dL (3.4-5.0) Albumin/Globulin Ratio 0.2 (1.0-1.7) Glucose (Fingerstick) 201 mg/dL (70-99) Assessment and Plan Assessmemt and Plan Problems Medical Problems: (1) Bilateral pneumonia Status: Acute (2) Fever Status: Acute (3) Hypoglycemia Status: Acute (4) Renal insufficiency Status: Acute (5) Suspected 2019 novel coronavirus infection Status: Acute (6) Weakness Status: Acute Comment Review of Relevant I have reviewed the following items sammie (where applicable) has been applied. Labs Laboratory Tests Test 12/21/19 09:00 12/21/19 17:00 12/22/19 00:54 12/22/19 06:25 O2 Saturation 92 % (92-99) Arterial Blood pH 7.26 (7.35-7.45) Arterial Blood pCO2 at Patient Temp 44 mmHg (35-46) Arterial Blood pO2 at Patient Temp 74 mmHg (65-108) Arterial Blood HCO3 20 mmol/L (21-28) Arterial Blood Base Excess -7 mmol/L (-3-3) FiO2 80 Glucose (Fingerstick) 169 mg/dL (70-99) 108 mg/dL (70-99) Sodium Level 134 mmol/L (136-145) Potassium Level 4.3 mmol/L (3.5-5.1) Chloride Level 100 mmol/L (98-107) Carbon Dioxide Level 23 mmol/L (21-32) Anion Gap 11 (6-14) Blood Urea Nitrogen 91 mg/dL (8-26) Creatinine 5.3 mg/dL (0.7-1.3) Estimated GFR (Cockcroft-Gault) 12.5 Glucose Level 133 mg/dL (70-99) Calcium Level 8.2 mg/dL (8.5-10.1) Test 12/22/19 06:27 12/22/19 09:15 12/22/19 11:49 12/22/19 17:21 Glucose (Fingerstick) 128 mg/dL (70-99) 165 mg/dL (70-99) 160 mg/dL (70-99) O2 Saturation 92 % (92-99) Arterial Blood pH 7.30 (7.35-7.45) Arterial Blood pCO2 at Patient Temp 45 mmHg (35-46) Arterial Blood pO2 at Patient Temp 66 mmHg (65-108) Arterial Blood HCO3 21 mmol/L (21-28) Arterial Blood Base Excess -5 mmol/L (-3-3) FiO2 70 Test 12/22/19 23:43 12/23/19 06:00 12/23/19 06:14 Glucose (Fingerstick) 197 mg/dL (70-99) 201 mg/dL (70-99) Sodium Level 133 mmol/L (136-145) Potassium Level 4.5 mmol/L (3.5-5.1) Chloride Level 98 mmol/L (98-107) Carbon Dioxide Level 20 mmol/L (21-32) Anion Gap 15 (6-14) Blood Urea Nitrogen 102 mg/dL (8-26) Creatinine 6.2 mg/dL (0.7-1.3) Estimated GFR (Cockcroft-Gault) 10.4 BUN/Creatinine Ratio 16 (6-20) Glucose Level 210 mg/dL (70-99) Calcium Level 8.0 mg/dL (8.5-10.1) Phosphorus Level 5.4 mg/dL (2.6-4.7) Magnesium Level 2.4 mg/dL (1.8-2.4) Total Bilirubin 4.6 mg/dL (0.2-1.0) Aspartate Amino Transf (AST/SGOT) 47 U/L (15-37) Alanine Aminotransferase (ALT/SGPT) 7 U/L (16-63) Alkaline Phosphatase 46 U/L (46-116) Total Protein 5.7 g/dL (6.4-8.2) Albumin 1.0 g/dL (3.4-5.0) Albumin/Globulin Ratio 0.2 (1.0-1.7) Laboratory Tests Test 12/22/19 09:15 12/22/19 11:49 12/22/19 17:21 12/22/19 23:43 O2 Saturation 92 % (92-99) Arterial Blood pH 7.30 (7.35-7.45) Arterial Blood pCO2 at Patient Temp 45 mmHg (35-46) Arterial Blood pO2 at Patient Temp 66 mmHg (65-108) Arterial Blood HCO3 21 mmol/L (21-28) Arterial Blood Base Excess -5 mmol/L (-3-3) FiO2 70 Glucose (Fingerstick) 165 mg/dL (70-99) 160 mg/dL (70-99) 197 mg/dL (70-99) Test 12/23/19 06:00 12/23/19 06:14 Sodium Level 133 mmol/L (136-145) Potassium Level 4.5 mmol/L (3.5-5.1) Chloride Level 98 mmol/L (98-107) Carbon Dioxide Level 20 mmol/L (21-32) Anion Gap 15 (6-14) Blood Urea Nitrogen 102 mg/dL (8-26) Creatinine 6.2 mg/dL (0.7-1.3) Estimated GFR (Cockcroft-Gault) 10.4 BUN/Creatinine Ratio 16 (6-20) Glucose Level 210 mg/dL (70-99) Calcium Level 8.0 mg/dL (8.5-10.1) Phosphorus Level 5.4 mg/dL (2.6-4.7) Magnesium Level 2.4 mg/dL (1.8-2.4) Total Bilirubin 4.6 mg/dL (0.2-1.0) Aspartate Amino Transf (AST/SGOT) 47 U/L (15-37) Alanine Aminotransferase (ALT/SGPT) 7 U/L (16-63) Alkaline Phosphatase 46 U/L (46-116) Total Protein 5.7 g/dL (6.4-8.2) Albumin 1.0 g/dL (3.4-5.0) Albumin/Globulin Ratio 0.2 (1.0-1.7) Glucose (Fingerstick) 201 mg/dL (70-99) Microbiology 12/17/19 Blood Culture - Preliminary, Resulted NO GROWTH AFTER 4 DAYS Medications Current Medications Acetaminophen (Tylenol) 1,000 mg 1X ONCE PO ; Start 12/09/19 at 12:15; Stop 12/09/19 at 12:16; Status DC Sodium Chloride 1,000 ml @ 1,000 mls/hr Q1H IV Last administered on 12/09/19at 13:48; Start 12/09/19 at 12:01; Stop 12/09/19 at 13:00; Status DC Ceftriaxone Sodium (Rocephin) 1 gm 1X ONCE IVP Last administered on 12/09/19at 13:49; Start 12/09/19 at 13:30; Stop 12/09/19 at 13:31; Status DC Vancomycin HCl 250 ml @ 250 mls/hr 1X ONCE IV Last administered on 12/09/19at 13:49; Start 12/09/19 at 13:30; Stop 12/09/19 at 14:29; Status DC Dextrose (Dextrose 50%-Water Syringe) 12.5 gm 1X ONCE IV Last administered on 12/09/19at 13:48; Start 12/09/19 at 13:45; Stop 12/09/19 at 13:46; Status DC Sodium Polystyrene Sulfonate (Kayexalate) 15 gm 1X ONCE PO Last administered on 12/09/19at 14:35; Start 12/09/19 at 13:45; Stop 12/09/19 at 13:46; Status DC Sodium Chloride 1,000 ml @ 150 mls/hr Q6H40M IV Last administered on 12/10/19at 09:00; Start 12/09/19 at 13:46; Stop 12/10/19 at 13:45; Status DC Dextrose (Dextrose 50%-Water Syringe) 25 gm 1X ONCE IV Last administered on 12/09/19at 15:09; Start 12/09/19 at 15:00; Stop 12/09/19 at 15:02; Status DC Acetaminophen (Tylenol) 1,000 mg PRN Q6HRS PRN PO FEVER Last administered on 12/20/19at 12:51; Start 12/09/19 at 15:30 Acetaminophen (Tylenol) 1,000 mg PRN Q6HRS PRN PO FEVER; Start 12/09/19 at 15:30; Stop 12/09/19 at 18:00; Status DC Dextrose (Dextrose 50%-Water Syringe) 25 gm 1X ONCE IV Last administered on 12/09/19at 22:38; Start 12/09/19 at 22:30; Stop 12/09/19 at 22:31; Status DC Dextrose (Dextrose 50%-Water Syringe) 12.5 gm PRN Q15MIN PRN IV SEE COMMENTS Last administered on 12/12/19at 21:21; Start 12/10/19 at 00:30 Allopurinol (Zyloprim) 100 mg DAILY PO Last administered on 12/21/19at 10:02; Start 12/10/19 at 17:00; Stop 12/22/19 at 08:05; Status DC Aspirin (Ecotrin) 81 mg DAILY PO Last administered on 12/22/19 11:11; Start 12/10/19 at 17:00 Ferrous Sulfate (Feosol) 325 mg DAILY08 PO Last administered on 12/22/19 11:11; Start 12/10/19 at 17:00 Fluticasone Propionate (Flonase) 2 spray DAILY NS Last administered on 12/16/19at 09:00; Start 12/11/19 at 09:00; Stop 12/21/19 at 11:07; Status DC Glipizide (Glucotrol) 2.5 mg DAILYAC PO Last administered on 12/21/19at 09:57; S tart 12/11/19 at 07:30; Stop 12/21/19 at 11:07; Status DC Glipizide (Glucotrol) 5 mg DAILYWSUP PO Last administered on 12/10/19at 17:18; Start 12/10/19 at 17:00; Stop 12/11/19 at 08:03; Status DC Hydrochlorothiazide (Hydrodiuril) 25 mg DAILY PO Last administered on 12/16/19at 09:04; Start 12/10/19 at 17:00; Stop 12/16/19 at 12:52; Status DC Levothyroxine Sodium (Synthroid) 50 mcg DAILY06 PO Last administered on 12/21/19at 05:50; Start 12/11/19 at 06:00; Stop 12/21/19 at 11:07; Status DC Simvastatin (Zocor) 20 mg QHS PO Last administered on 12/11/19at 21:31; Start 12/10/19 at 21:00; Stop 12/13/19 at 11:28; Status DC Tamsulosin HCl (Flomax) 0.4 mg DAILY PO Last administered on 12/21/19at 09:58; Start 12/10/19 at 17:00; Stop 12/21/19 at 11:07; Status DC Warfarin Sodium (Coumadin) 3 mg 1X PO ; Start 12/10/19 at 16:00; Stop 12/10/19 at 16:44; Status DC Amlodipine Besylate (Norvasc) 5 mg DAILY PO Last administered on 12/21/19at 09:59; Start 12/10/19 at 17:00 Non-Formulary Medication (Carboxymethylcellulose Sodium (Lubricant Eye Drops)) 1 each HS OP ; Start 12/10/19 at 21:00; Status UNV Pantoprazole Sodium (Protonix) 40 mg DAILYAC PO Last administered on 12/16/19at 09:04; Start 12/10/19 at 16:30; Stop 12/17/19 at 07:44; Status DC Artificial Tears (Artificial Tears) 1 drop [id number] OU ; Start 12/10/19 at 17:00; Stop 12/10/19 at 16:44; Status DC Cetirizine HCl (ZyrTEC) 10 mg DAILY PO Last administered on 12/21/19at 09:57; Start 12/10/19 at 17:00; Stop 12/21/19 at 11:07; Status DC Warfarin Sodium (Coumadin Per Physician) 1 each PRN DAILY PRN MC SEE COMMENTS; Start 12/10/19 at 16:30; Stop 12/10/19 at 16:44; Status DC Ceftriaxone Sodium (Rocephin) 1 gm Q24H IVP Last administered on 12/12/19at 17:24; Start 12/10/19 at 18:00; Stop 12/13/19 at 09:07; Status DC Azithromycin 250 ml @ 250 mls/hr 1X ONCE IV ; Start 12/10/19 at 16:30; Stop 12/10/19 at 17:29; Status UNV Lisinopril (Prinivil) 10 mg DAILY PO Last administered on 12/18/19at 10:03; Start 12/10/19 at 17:00; Stop 12/18/19 at 11:12; Status DC Azithromycin 500 mg/Sodium Chloride 250 ml @ 250 mls/hr Q24H IV Last administered on 12/12/19at 17:21; Start 12/10/19 at 18:00; Stop 12/13/19 at 11:18; Status DC Carbidopa/Levodopa (Sinemet 25/100) 2 tab TID PO Last administered on 12/22/19at 21:04; Start 12/10/19 at 17:00 Lactobacillus Rhamnosus (Culturelle) 1 cap BID PO Last administered on 12/14/19at 20:48; Start 12/11/19 at 21:00; Stop 12/15/19 at 08:34; Status DC Acetaminophen (Tylenol Supp) 650 mg PRN Q6HRS PRN SD MILD PAIN / TEMP Last administered on 12/15/19at 17:55; Start 12/12/19 at 07:45 Amino Acids/ Glycerin/ Electrolytes 1,000 ml @ 50 mls/hr Q20H IV Last administered on 12/15/19at 21:47; Start 12/12/19 at 10:15; Stop 12/16/19 at 21:59; Status DC Sodium Chloride 1,000 ml @ 75 mls/hr [id number] IV Last administered on 12/17/19at 09:22; Start 12/12/19 at 11:00; Stop 12/17/19 at 11:52; Status DC Enoxaparin Sodium (Lovenox 30mg Syringe) 30 mg Q24H SQ Last administered on 12/21/19at 12:42; Start 12/12/19 at 12:00; Stop 12/22/19 at 09:31; Status DC Hydroxychloroquine Sulfate (Plaquenil) 400 mg BID PO Last administered on 12/14/19at 20:48; Start 12/13/19 at 09:00; Stop 12/14/19 at 21:01; Status DC Hydroxychloroquine Sulfate (Plaquenil) 200 mg BID PO Last administered on 12/17/19at 22:59; Start 12/15/19 at 09:00; Stop 12/17/19 at 21:01; Status DC Piperacillin Sod/ Tazobactam Sod 4.5 gm/Sodium Chloride 100 ml @ 200 mls/hr Q6HRS IV ; Start 12/13/19 at 12:00; Status UNV Vancomycin HCl (Vanco Per Pharmacy) 1 each PRN DAILY PRN MC SEE COMMENTS Last administered on 12/18/19at 10:49; Start 12/13/19 at 09:00; Stop 12/19/19 at 14:26; Status DC Piperacillin Sod/ Tazobactam Sod 3.375 gm/Sodium Chloride 50 ml @ 100 mls/hr Q6HRS IV Last administered on 12/19/19at 11:39; Start 12/13/19 at 10:00; Stop 12/19/19 at 12:21; Status DC Vancomycin HCl 1.5 gm/Sodium Chloride 500 ml @ 250 mls/hr 1X ONCE IV Last administered on 12/13/19at 11:11; Start 12/13/19 at 10:00; Stop 12/13/19 at 11:59; Status DC Fentanyl Citrate 30 ml @ 2.5 mls/hr CONT PRN IV SEE PROTOCOL Last administered on 12/23/19at 03:18; Start 12/13/19 at 10:15 Chlorhexidine Gluconate (Peridex) 15 ml BID MM Last administered on 12/22/19at 21:04; Start 12/13/19 at 21:00 Morphine Sulfate (Morphine Sulfate) 2 mg PRN Q1HR PRN IV SEE COMMENTS.; Start 12/13/19 at 10:15 Morphine Sulfate (Morphine Sulfate) 4 mg PRN Q1HR PRN IV SEE COMMENTS. Last administered on 12/13/19at 12:40; Start 12/13/19 at 10:15 Propofol 100 ml @ 1.05 mls/hr CONT PRN IV SEE I/O RECORD Last administered on 12/16/19at 05:16; Start 12/13/19 at 10:30 Propofol 100 ml @ As Directed STK-MED ONCE IV ; Start 12/13/19 at 08:48; Stop 12/13/19 at 14:11; Status DC Propofol 100 ml @ As Directed STK-MED ONCE IV ; Start 12/13/19 at 09:33; Stop 12/13/19 at 14:12; Status DC Norepinephrine Bitartrate 8 mg/ Dextrose 258 ml @ 13.545 mls/ hr CONT PRN IV PER PROTOCOL Last administered on 12/16/19at 05:15; Start 12/13/19 at 15:30 Vancomycin HCl (Vancomycin Random Level) 1 each 1X ONCE MC Last administered on 12/14/19at 04:52; Start 12/14/19 at 05:00; Stop 12/14/19 at 05:01; Status DC Vancomycin HCl 1 gm/Sodium Chloride 250 ml @ 250 mls/hr Q48H IV Last administered on 12/16/19at 10:42; Start 12/14/19 at 09:00; Stop 12/16/19 at 12:01; Status DC Vancomycin HCl (Vancomycin Trough Level) 1 each 1X ONCE MC Last administered on 12/16/19at 08:30; Start 12/16/19 at 08:30; Stop 12/16/19 at 08:31; Status DC Vecuronium [place] (Norcuron Bolus) 10 mg STK-MED ONCE IV ; Start 12/14/19 at 12:43; Stop 12/14/19 at 12:43; Status DC Vecuronium [place] (Norcuron Bolus) 6 mg 1X ONCE IV Last administered on 12/14/19at 12:55; Start 12/14/19 at 12:45; Stop 12/14/19 at 12:52; Status DC Azithromycin 250 mg/Sodium Chloride 250 ml @ 250 mls/hr Q24H IV Last administered on 12/19/19at 09:32; Start 12/15/19 at 10:00; Stop 12/19/19 at 14:25; Status DC Vecuronium [place] (Norcuron Bolus) 10 mg STK-MED ONCE IV ; Start 12/16/19 at 10:45; Stop 12/16/19 at 10:45; Status DC Vecuronium [place] (Norcuron Bolus) 6 mg 1X ONCE IV ; Start 12/16/19 at 11:15; Stop 12/16/19 at 11:16; Status DC Vancomycin HCl 1 gm/Sodium Chloride 250 ml @ 250 mls/hr Q36H IV Last administered on 12/19/19at 11:39; Start 12/17/19 at 23:00; Stop 12/19/19 at 14:25; Status DC Midazolam HCl 50 mg/Sodium Chloride 50 ml @ 1 mls/hr CONT PRN IV SEE I/O RECORD; Start 12/16/19 at 12:15; Stop 12/16/19 at 12:10; Status DC Midazolam HCl 100 mg/Sodium Chloride 100 ml @ 1 mls/hr CONT PRN IV SEE I/O RECORD Last administered on 12/23/19at 03:16; Start 12/16/19 at 12:15 Vancomycin HCl (Vancomycin Trough Level) 1 each 1X ONCE MC Last administered on 12/19/19at 09:47; Start 12/19/19 at 10:30; Stop 12/19/19 at 10:31; Status DC Info (Tpn Per Pharmacy) 1 each PRN DAILY PRN MC SEE COMMENTS Last administered on 12/22/19at 09:55; Start 12/16/19 at 13:00 Sodium Acetate 60 meq/Potassium Chloride 20 meq/ Potassium Phosphate 10 mmol/ M agnesium Sulfate 10 meq/Calcium Gluconate 10 meq/ Multivitamins 10 ml/Chromium/ Copper/Manganese/ Seleni/Zn 0.5 ml/ Total Parenteral Nutrition/Amino Acids/Dextrose 1,200 ml @ 50 mls/hr TPN CONT IV Last administered on 12/16/19at 22:24; Start 12/16/19 at 22:00; Stop 12/17/19 at 21:59; Status DC Pantoprazole Sodium (PROTONIX VIAL for IV PUSH) 40 mg DAILYAC IVP Last administered on 12/21/19at 09:56; Start 12/17/19 at 09:00; Stop 12/21/19 at 11:07; Status DC Vecuronium [place] (Norcuron Bolus) 6 mg Q4HRS PRN IV VENT ASYNCHRONY Last administered on 12/17/19at 11:46; Start 12/17/19 at 08:45 Sodium Bicarbonate (Sodium Bicarb Adult 8.4% Syr) 50 meq 1X ONCE IV Last administered on 12/17/19at 09:31; Start 12/17/19 at 08:45; Stop 12/17/19 at 08:47; Status DC Sodium Bicarbonate 50 meq/Sodium Chloride 1,050 ml @ 100 mls/hr [id number] IV Last administered on 12/20/19at 18:49; Start 12/17/19 at 12:30; Stop 12/21/19 at 08:00; Status DC Sodium Acetate 60 meq/Potassium Chloride 20 meq/ Potassium Phosphate 10 mmol/ Magnesium Sulfate 10 meq/Calcium Gluconate 10 meq/ Multivitamins 10 ml/Chromium/ Copper/Manganese/ Seleni/Zn 0.5 ml/ Total Parenteral Nutrition/Amino Acids/Dextrose/ Fat Emulsion Intravenous 1,200 ml @ 50 mls/hr TPN CONT IV Last administered on 12/17/19at 23:00; Start 12/17/19 at 22:00; Stop 12/18/19 at 21:59; Status DC Ascorbic Acid (Vitamin C) 500 mg DAILY PO Last administered on 12/21/19at 09:57; Start 12/17/19 at 15:00; Stop 12/21/19 at 11:07; Status DC Zinc Sulfate (Orazinc) 220 mg DAILY PO Last administered on 12/21/19at 09:57; Start 12/17/19 at 15:00; Stop 12/21/19 at 11:07; Status DC Metoclopramide HCl (Reglan Vial) 10 mg PRN Q6HRS PRN IVP NAUSEA/VOMITING; Start 12/18/19 at 09:15; Stop 12/18/19 at 09:06; Status DC Ondansetron HCl (Zofran) 4 mg PRN Q6HRS PRN IVP NAUSEA/VOMITING Last administered on 12/18/19at 09:55; Start 12/18/19 at 09:15 Sodium Chloride 500 ml @ 500 mls/hr 1X ONCE IV Last administered on 12/18/19at 09:15; Start 12/18/19 at 09:15; Stop 12/18/19 at 10:14; Status DC Metoclopramide HCl (Reglan Vial) 5 mg PRN Q6HRS PRN IVP NAUSEA/VOMITING, 2ND CHOICE Last administered on 12/18/19at 09:55; Start 12/18/19 at 09:15 Sodium Acetate 60 meq/Potassium Chloride 10 meq/ Potassium Phosphate 10 mmol/ Calcium Gluconate 5 meq/ Multivitamins 10 ml/Chromium/ Copper/Manganese/ Seleni/Zn 0.5 ml/ Total Parenteral Nutrition/Amino Acids/Dextrose/ Fat Emulsion Intravenous 1,200 ml @ 50 mls/hr TPN CONT IV Last administered on 12/18/19at 22:25; Start 12/18/19 at 22:00; Stop 12/19/19 at 21:59; Status DC Hydroxychloroquine Sulfate (Plaquenil) 200 mg BID PO Last administered on 12/18/19at 22:23; Start 12/18/19 at 11:00; Stop 12/18/19 at 21:01; Status DC Darbepoetin [place] (ARANESP for DIALYSIS PTS) 60 mcg [id number] SQ Last administered on 12/19/19at 21:20; Start 12/19/19 at 21:00 Piperacillin Sod/ Tazobactam Sod 2.25 gm/Sodium Chloride 50 ml @ 100 mls/hr Q6HRS IV Last administered on 12/23/19at 06:16; Start 12/19/19 at 18:00 Sodium Acetate 60 meq/Potassium Chloride 10 meq/ Potassium Phosphate 10 mmol/ Calcium Gluconate 5 meq/ Multivitamins 10 ml/Chromium/ Copper/Manganese/ Seleni/Zn 0.5 ml/ Total Parenteral Nutrition/Amino Acids/Dextrose/ Fat Emulsion Intravenous 1,200 ml @ 50 mls/hr TPN CONT IV Last administered on 12/19/19at 21:20; Start 12/19/19 at 22:00; Stop 12/20/19 at 21:59; Status DC Linezolid/Dextrose 300 ml @ 300 mls/hr Q12HR IV Last administered on 12/22/19at 21:06; Start 12/19/19 at 21:00 Sodium Acetate 60 meq/Potassium Chloride 10 meq/ Potassium Phosphate 10 mmol/ Calcium Gluconate 5 meq/ Multivitamins 10 ml/Chromium/ Copper/Manganese/ Seleni/Zn 0.5 ml/ Total Parenteral Nutrition/Amino Acids/Dextrose/ Fat Emulsion Intravenous 1,200 ml @ 50 mls/hr TPN CONT IV Last administered on 12/20/19at 21:32; Start 12/20/19 at 22:00; Stop 12/21/19 at 21:59; Status DC Insulin Glargine (Lantus Syringe) 20 unit QHS SQ ; Start 12/20/19 at 17:00; Status Cancel Insulin Human Lispro (HumaLOG) 0-5 UNITS Q6HRS SQ Last administered on 12/23/19at 06:16; Start 12/20/19 at 18:00 Dextrose (Dextrose 50%-Water Syringe) 12.5 gm PRN Q15MIN PRN IV SEE COMMENTS; Start 12/20/19 at 16:45; Status Cancel Insulin Glargine (Lantus Syringe) 20 unit DAILY@1800 SQ Last administered on 12/20/19at 17:36; Start 12/20/19 at 18:00; Stop 12/21/19 at 11:07; Status DC Dextrose (Dextrose 50%-Water Syringe) 12.5 gm PRN Q15MIN PRN IV SEE COMMENTS; Start 12/20/19 at 17:15; Status UNV Insulin Glargine (Lantus Syringe) 24 unit DAILY@1800 SQ Last administered on 12/22/19at 20:20; Start 12/21/19 at 18:00 Sodium Acetate 60 meq/Potassium Chloride 10 meq/ Potassium Phosphate 10 mmol/ Calcium Gluconate 5 meq/ Multivitamins 10 ml/Chromium/ Copper/Manganese/ Seleni/Zn 0.5 ml/ Total Parenteral Nutrition/Amino Acids/Dextrose/ Fat Emulsion Intravenous 1,200 ml @ 50 mls/hr TPN CONT IV Last administered on 12/21/19at 21:27; Start 12/21/19 at 22:00; Stop 12/22/19 at 21:59; Status DC Furosemide 100 mg/ Sodium Chloride 100 ml @ 5 mls/hr Q20H IV Last administered on 12/22/19at 08:58; Start 12/21/19 at 15:00 Sodium Bicarbonate (Sodium Bicarb Adult 8.4% Syr) 50 meq Q2HR IV Last administered on 12/21/19at 16:57; Start 12/21/19 at 16:00; Stop 12/21/19 at 18:01; Status DC Calcium Chloride 2000 mg/Sodium Chloride 120 ml @ 240 mls/hr 1X ONCE IV Last administered on 12/21/19at 15:48; Start 12/21/19 at 15:15; Stop 12/21/19 at 15:44; Status DC Albumin Human 100 ml @ 100 mls/hr PRN Q8HRS PRN IV for MAP Less than 65; Start 12/21/19 at 15:15 Heparin Sodium (Porcine) (Heparin Sodium) 5,000 unit Q12H SQ Last administered on 12/22/19at 21:05; Start 12/22/19 at 09:00 Heparin Sodium (Porcine) (Heparin Sodium) 5,000 unit Q12HR SQ ; Start 12/22/19 at 21:00; Status Cancel Sodium Acetate 60 meq/Potassium Phosphate 10 mmol/ Multivitamins 10 ml/Chromium/ Copper/Manganese/ Seleni/Zn 0.5 ml/ Total Parenteral Nutrition/Amino Acids/Dextrose/ Fat Emulsion Intravenous 1,200 ml @ 50 mls/hr TPN CONT IV Last administered on 12/22/19at 21:05; Start 12/22/19 at 22:00; Stop 12/23/19 at 21:59 Active Scripts Active Reported Carbidopa-Levodopa 25-100 Tab (Carbidopa/Levodopa) 1 Each Tablet 50-200 PO TID Fluticasone Propionate Nasal [place] (Fluticasone Propionate) 16 Gm [place].susp 2 [place] NS DAILY last dos this am next dose tomorrow am (monday) Glipizide 5 Mg Tablet 5 Mg PO DAILYWSUP last dose last night next dose tonight with supper Glipizide 5 Mg Tablet 2.5 Mg PO DAILY last dose this am (next dose tomorrow am monday) Loratadine 10 Mg Tablet 10 Mg PO last dose this am next dose tomorrow am(monday) Omeprazole 20 Mg Capsule.dr 20 Mg PO DAILY last dose this am next dose tomorrow am (monday) Ferrous Sulfate 325 Mg Tablet 1 Tab PO DAILY last dose this am next dose tonight Amlodipine-Benazepril 5-10 Mg (Amlodipine Besylate/Benazepril) 1 Each Capsule 1 Cap PO DAILY last dos this am next dose tomorrow am (monday) Tamsulosin Hcl 0.4 Mg Cap.er.24h 1 Cap PO DAILY last dose this am next dose tomorrow am (monday) Simvastatin 20 Mg Tablet 1 Tab PO QHS last dose last evening next dose tonight Hydrochlorothiazide Tablet (Hydrochlorothiazide) 25 Mg Tablet 1 Tab PO DAILY last dos this am next dose tomorrow am (monday) Allopurinol 100 Mg Tablet 1 Tab PO DAILY last dose this am next dose tomorrow on monday Levothyroxine Sodium 50 Mcg Tablet 1 Tab PO DAILY last dose this am next dose tomorrow am (monday) Vitals/I & O Vital Sign - Last 24 Hours 12/22/19 12/22/19 12/22/19 12/22/19 09:00 09:00 09:00 10:00 Pulse 48 48 51 Resp 23 12 B/P (MAP) 91/47 112/51 (71) 112/52 (72) Pulse Ox 95 97 98 O2 Delivery Ventilator Ventilator Ventilator 12/22/19 12/22/19 12/22/19 12/22/19 11:00 11:08 11:38 11:50 Pulse 46 Resp 20 20 22 B/P (MAP) 98/43 (61) Pulse Ox 96 96 95 O2 Delivery Ventilator Ventilator Ventilator Ventilator O2 Flow Rate 15.0 12/22/19 12/22/19 12/22/19 12/22/19 12:00 12:00 13:00 14:00 Temp 98.8 98.8 Pulse 54 46 44 Resp 20 B/P (MAP) 104/50 (68) 94/44 (61) 87/42 (57) Pulse Ox 92 96 96 O2 Delivery Mechanical Ventilator Ventilator Ventilator Ventilator 12/22/19 12/22/19 12/22/19 12/22/19 15:00 16:00 16:00 16:05 Temp 98.8 98.8 Pulse 44 54 Resp 20 21 B/P (MAP) 105/46 (65) 104/50 (68) Pulse Ox 95 92 95 O2 Delivery Ventilator Mechanical Ventilator Ventilator Ventilator 12/22/19 12/22/19 12/22/19 12/22/19 17:00 18:00 19:00 19:23 Temp 99.1 98.1 99.1 98.1 Pulse 46 44 44 46 Resp 19 21 B/P (MAP) 100/46 (64) 90/41 (57) 93/41 (58) 93/41 (58) Pulse Ox 96 98 98 96 O2 Delivery Ventilator Ventilator Ventilator O2 Flow Rate 15.0 12/22/19 12/22/19 12/22/19 12/22/19 20:00 20:00 20:17 20:23 Pulse 46 Resp 21 24 B/P (MAP) 95/41 (59) Pulse Ox 99 99 99 O2 Delivery Mechanical Ventilator Ventilator Ventilator Ventilator 12/22/19 12/22/19 12/22/19 12/22/19 20:50 21:00 22:00 23:00 Pulse 46 46 48 Resp 20 20 21 20 B/P (MAP) 105/45 (65) 103/44 (63) 109/47 (67) Pulse Ox 95 97 97 95 O2 Delivery Ventilator Ventilator Ventilator Ventilator 12/22/19 12/22/19 12/22/19 12/23/19 23:29 23:59 23:59 01:10 Temp 98.0 98.0 Pulse 46 46 Resp 20 28 B/P (MAP) 104/45 (64) 100/43 (62) Pulse Ox 99 94 94 O2 Delivery Ventilator Ventilator Mechanical Ventilator Ventilator 12/23/19 12/23/19 12/23/19 12/23/19 02:00 03:00 03:18 03:45 Pulse 42 47 Resp 20 20 20 20 B/P (MAP) 109/45 (66) 114/48 (70) Pulse Ox 95 93 94 95 O2 Delivery Ventilator Ventilator Ventilator 12/23/19 12/23/19 12/23/19 12/23/19 04:00 04:00 04:09 05:00 Temp 98.8 98.8 Pulse 44 44 Resp 20 20 B/P (MAP) 98/43 (61) 109/45 (66) Pulse Ox 94 94 95 O2 Delivery Ventilator Mechanical Ventilator Ventilator Ventilator 12/23/19 12/23/19 06:00 07:00 Pulse 46 42 Resp 22 22 B/P (MAP) 137/48 (77) 101/44 (63) Pulse Ox 90 94 O2 Delivery Ventilator Ventilator Intake and Output 12/22/19 12/22/19 12/23/19 15:00 23:00 07:00 Intake Total 350 ml 1393 ml 755 ml Output Total 5 ml 13 ml 355 ml Balance 345 ml 1380 ml 400 ml Nutrition Consultation Dietary Evaluation: Recommendations by RD: Dietary education by RD, Increase Calorie Intake, PPN/TPN Comments: Continue w/TPN per current order: 225 g dextrose, 85 g AA, 20 g lipids If pt stable and apprpriate for enteral nutrition (no vomiting, no bowel ischemia), would recommend consideration of TFs to support gut function, recommend TFs per following: VitalAF@goal rate 50 ml/hr w/125 ml water flushes q4 hrs. REC TFs@10 ml/hr when pt in prone position w/minimal water flushes (~50 ml q6 hrs or as appropriate per MD) to minimize aspiration risk Expected Outcomes/Goals: New goal 12/16: Nutrition support to meet >65% estimated nutrition needs while pt remains intubated - met, goal ongoing Interpretation of weight loss: >5% in 1 month Malnutrition Findings: Food and Nutrition Intake (Sev: <50% est energy req 5days Weight Status: Appropriate DANTE CAGE MD Dec 23, 2019 08:08
[2019-12-23 08:22] LABS: BASE EXCESS ABG -8 mmol/L (-3-3); HCO3 ABG 19 mmol/L (21-28); PCO2 ABG 46 mmHg (35-46)
[2019-12-23] MEDS: ASPIRIN ENTERIC COATED 81 MG TABLET.DR. PO SCH (08:23)
[2019-12-23] MEDS: FERROUS SULFATE 325 MG TABLET. PO SCH (08:23)
[2019-12-23] MEDS: amLODIPine BESYLATE 5 MG TABLET PO SCH (08:24)
[2019-12-23] MEDS: CARBIDOPA/LEVODOPA 25/100MG TABLET PO SCH ×3 (08:24→21:40)
[2019-12-23] MEDS: HEPARIN for SUB-Q USE 5,000 UNIT/ML VIAL. SQ SCH ×2 (08:36→21:42)
[2019-12-23] MEDS: CHLORHEXIDINE 0.12% 15 ML MOUTHWASH. MM SCH (08:36)
[2019-12-23] MEDS ORDERED: SODIUM BICARB ADULT 8.4% 50 MEQ/50 ML DISP.SYRIN. IV ONE (08:45)
--- NOTE | 2019-12-23 09:05 | PDOC ---
PULMONARY PROGRESS NOTES Subjective Pt intubated/ sedated on PC mode, 80%FIO2/ 8 PEEP, worsening resp acidosis worsening renal failure bradycardia Vitals Vital Signs Date Time Temp Pulse Resp B/P (MAP) Pulse Ox O2 Delivery O2 Flow Rate FiO2 12/23/19 08:53 97.5 42 108/52 (70) 94 15.0 97.5 12/23/19 07:00 22 Ventilator Comments Visual exam done intubated/ sedated , no obvious JVD, no rash, trace edema Abdomen: Soft Labs Laboratory Tests Test 12/21/19 17:00 12/22/19 00:54 12/22/19 06:25 12/22/19 06:27 Glucose (Fingerstick) 169 mg/dL (70-99) 108 mg/dL (70-99) 128 mg/dL (70-99) Sodium Level 134 mmol/L (136-145) Potassium Level 4.3 mmol/L (3.5-5.1) Chloride Level 100 mmol/L (98-107) Carbon Dioxide Level 23 mmol/L (21-32) Anion Gap 11 (6-14) Blood Urea Nitrogen 91 mg/dL (8-26) Creatinine 5.3 mg/dL (0.7-1.3) Estimated GFR (Cockcroft-Gault) 12.5 Glucose Level 133 mg/dL (70-99) Calcium Level 8.2 mg/dL (8.5-10.1) Test 12/22/19 09:15 12/22/19 11:49 12/22/19 17:21 12/22/19 23:43 O2 Saturation 92 % (92-99) Arterial Blood pH 7.30 (7.35-7.45) Arterial Blood pCO2 at Patient Temp 45 mmHg (35-46) Arterial Blood pO2 at Patient Temp 66 mmHg (65-108) Arterial Blood HCO3 21 mmol/L (21-28) Arterial Blood Base Excess -5 mmol/L (-3-3) FiO2 70 Glucose (Fingerstick) 165 mg/dL (70-99) 160 mg/dL (70-99) 197 mg/dL (70-99) Test 12/23/19 06:00 12/23/19 06:14 Sodium Level 133 mmol/L (136-145) Potassium Level 4.5 mmol/L (3.5-5.1) Chloride Level 98 mmol/L (98-107) Carbon Dioxide Level 20 mmol/L (21-32) Anion Gap 15 (6-14) Blood Urea Nitrogen 102 mg/dL (8-26) Creatinine 6.2 mg/dL (0.7-1.3) Estimated GFR (Cockcroft-Gault) 10.4 BUN/Creatinine Ratio 16 (6-20) Glucose Level 210 mg/dL (70-99) Calcium Level 8.0 mg/dL (8.5-10.1) Phosphorus Level 5.4 mg/dL (2.6-4.7) Magnesium Level 2.4 mg/dL (1.8-2.4) Total Bilirubin 4.6 mg/dL (0.2-1.0) Aspartate Amino Transf (AST/SGOT) 47 U/L (15-37) Alanine Aminotransferase (ALT/SGPT) 7 U/L (16-63) Alkaline Phosphatase 46 U/L (46-116) Total Protein 5.7 g/dL (6.4-8.2) Albumin 1.0 g/dL (3.4-5.0) Albumin/Globulin Ratio 0.2 (1.0-1.7) Glucose (Fingerstick) 201 mg/dL (70-99) Laboratory Tests Test 12/22/19 09:15 12/22/19 11:49 12/22/19 17:21 12/22/19 23:43 O2 Saturation 92 % (92-99) Arterial Blood pH 7.30 (7.35-7.45) Arterial Blood pCO2 at Patient Temp 45 mmHg (35-46) Arterial Blood pO2 at Patient Temp 66 mmHg (65-108) Arterial Blood HCO3 21 mmol/L (21-28) Arterial Blood Base Excess -5 mmol/L (-3-3) FiO2 70 Glucose (Fingerstick) 165 mg/dL (70-99) 160 mg/dL (70-99) 197 mg/dL (70-99) Test 12/23/19 06:00 12/23/19 06:14 Sodium Level 133 mmol/L (136-145) Potassium Level 4.5 mmol/L (3.5-5.1) Chloride Level 98 mmol/L (98-107) Carbon Dioxide Level 20 mmol/L (21-32) Anion Gap 15 (6-14) Blood Urea Nitrogen 102 mg/dL (8-26) Creatinine 6.2 mg/dL (0.7-1.3) Estimated GFR (Cockcroft-Gault) 10.4 BUN/Creatinine Ratio 16 (6-20) Glucose Level 210 mg/dL (70-99) Calcium Level 8.0 mg/dL (8.5-10.1) Phosphorus Level 5.4 mg/dL (2.6-4.7) Magnesium Level 2.4 mg/dL (1.8-2.4) Total Bilirubin 4.6 mg/dL (0.2-1.0) Aspartate Amino Transf (AST/SGOT) 47 U/L (15-37) Alanine Aminotransferase (ALT/SGPT) 7 U/L (16-63) Alkaline Phosphatase 46 U/L (46-116) Total Protein 5.7 g/dL (6.4-8.2) Albumin 1.0 g/dL (3.4-5.0) Albumin/Globulin Ratio 0.2 (1.0-1.7) Glucose (Fingerstick) 201 mg/dL (70-99) Medications Active Scripts Medications Dose Route/Sig Max Daily Dose Days Date Category Dose Instructions Warfarin Sodium 3 Mg Tablet 1 Tab PO 1X 09/28/17 Reported Fluticasone Propionate Nasal [place] (Fluticasone Propionate) 16 Gm [place].susp 2 [place] NS DAILY 09/25/17 Reported last dos this am next dose tomorrow am (monday) Lubricant Eye Drops (Propylene Glycol) 10 Ml Drops 10 Ml OP [id number] 09/25/17 Reported last dose after lunch next dose with supper/ bedtime Lubricant Eye Drops (Carboxymethylcellulose Sodium) 1 Each Droperette 1 Each OP HS 09/25/17 Reported last dose last evening next dosetonight provided his own Glipizide 5 Mg Tablet 5 Mg PO DAILYWSUP 07/12/16 Reported last dose last night next dose tonight with supper Glipizide 5 Mg Tablet 2.5 Mg PO DAILY 07/12/16 Reported last dose this am (next dose tomorrow am monday) Loratadine 10 Mg Tablet 10 Mg PO 06/27/16 Reported last dose this am next dose tomorrow am(monday) Omeprazole 20 Mg Capsule.dr 20 Mg PO DAILY 06/27/16 Reported last dose this am next dose tomorrow am (monday) Ferrous Sulfate 325 Mg Tablet 1 Tab PO DAILY 06/27/16 Reported last dose this am next dose tonight Aspir 81 (Aspirin) 81 Mg Tablet.dr 81 Mg PO DAILY 06/27/16 Reported Amlodipine-Benazepril 5-10 Mg (Amlodipine Besylate/Benazepril) 1 Each Capsule 1 Cap PO DAILY 06/27/16 Reported last dos this am next dose tomorrow am (monday) Tamsulosin Hcl 0.4 Mg Cap.er.24h 1 Cap PO DAILY 10/06/14 Reported last dose this am next dose tomorrow am (monday) Simvastatin 20 Mg Tablet 1 Tab PO QHS 10/06/14 Reported last dose last evening next dose tonight Hydrochlorothiazide Tablet (Hydrochlorothiazide) 25 Mg Tablet 1 Tab PO DAILY 10/06/14 Reported last dos this am next dose tomorrow am (monday) Allopurinol 100 Mg Tablet 1 Tab PO DAILY 10/06/14 Reported last dose this am next dose tomorrow on monday Levothyroxine Sodium 50 Mcg Tablet 1 Tab PO DAILY 10/06/14 Reported last dose this am next dose tomorrow am (monday) Comments CXR 12/22 diffuse interstitial infiltrates bilateral, slightly better Impression . This is an 84-year-old, who presents with comorbidities including debility, diabetes, and chronic kidney disease on top of acute kidney disease with abnormal chest x-ray/ hypoxia/ RF 1. Acute respiratory failure secondary ARDS, worsening hypoxia and resp acidosis 2. Pneumonia, COVID-19 positive test (U07.1, COVID-19) with Acute Pneumonia (J12.89, Other viral pneumonia) (If respiratory failure or sepsis present, add as separate assessment) 3. diabetes 4. Abnormal chest x-ray, suspect superimposed bacterial pneumonia (gram-negative gram-positive), underlying viral pneumonia 5. Septic shock, off levoped 6. Protein malnutrition present upon admission 7. Acute kidney injury,worse 8. Metabolic acidosis due to BIA 9. Severe PCM Labs reviewed, chest x-ray reviewed Plan . Continue PC mode increase to 24,high FIO2 100%, PEEP to 12. Follow ABG and make necessary adjustments . PAP in 30'. OK with permissive hypercapnia PRN paralytics sedation Prone positioning per protocol. Follow CXR and Labs s/p -hydroxychloroquine, Zithromax ( dc'd at day 5) Continue vancomycin and Zosyn DVT GI prophylaxis Nutritional support with TPN worsening renal function, follow renal rec. would not rec HD The above was discussed with RN and RT Total cumulative critical care time of 30 minutes reviewing data, labs, chest x- ray, and managing vent prognosis guarded/ DNR will inform family ADITYA FERREIRA MD Dec 23, 2019 09:05
[2019-12-23 09:38] LABS: PO2 ABG < 42 mmHg (65-108); SAT O2 ABG 47 % (92-99)
[2019-12-23 09:39] LABS: FIO2 ABG 70
[2019-12-23] MEDS: TPN PER PHARMACY MC PRN (10:21)
--- NOTE | 2019-12-23 13:07 | PDOC ---
SUBJECTIVE ROS Intubated, sedated OBJECTIVE Vital Signs Vital Signs Date Time Temp Pulse Resp B/P (MAP) Pulse Ox O2 Delivery O2 Flow Rate FiO2 12/23/19 11:10 94 15.0 12/23/19 10:00 41 23 112/55 (74) 12/23/19 08:53 97.5 97.5 12/23/19 08:10 Ventilator I & 0 Intake and Output 12/23/19 07:00 Intake Total 2498 ml Output Total 373 ml Balance 2125 ml IV Total 2498 ml Output Urine Total 23 ml Gastric Drainage Total 350 ml PHYSICAL EXAM Physical Exam GEN- Intubated, sedated Respiratory: ventilator Heart: S1S2 per the monitor Extremities: Edematous Neurology: other (SEDATED) Musculoskeletal: Other (SEDATED ON THE VENT) Agosto + DIAGNOSIS/ASSESSMENT Assessment & Plan BIA-most likely associated with ATN and generalized illness associated with COVID-19. Poor Candidate for HD as has been previously documented. No significant response with Lasix either with regards to urine output, dced now CKD STAGE 3 WITH BASELINE CR OF 2.0. Given advanced age and other comorbidities as well as ongoing potentially terminal illness, is felt by all involved, that the patient was not significantly benefit from dialysis. Hence this will not be pursued at this time. He appears to be hemodynamically labile also ACUTE RESP FAILURE-ARDS -Pulm - Prone positioning per protocol s/p -hydroxychloroquine, Zithromax ( dc'd at day 5) COVID - 19 PNEUMONIA: Lymphocytopenia: Poor prognosis ThromboCytopenia: Appears to be associated with underlying illness COMMENT/RELEVANT DATA Meds Current Medications Medications (Trade) Dose Ordered Sig/Aga Start Time Stop Time Status Last Admin Dose Admin Acetaminophen (Tylenol Supp) 650 mg PRN Q6HRS PRN 12/12/19 07:45 12/15/19 17:55 650 MG Acetaminophen (Tylenol) 1,000 mg PRN Q6HRS PRN 12/09/19 15:30 12/09/19 18:00 DC Albumin Human 100 ml @ 100 mls/hr PRN Q8HRS PRN 12/21/19 15:15 Allopurinol (Zyloprim) 100 mg DAILY 12/10/19 17:00 12/22/19 08:05 DC 12/21/19 10:02 100 MG Amino Acids/ Glycerin/ Electrolytes 1,000 ml @ 50 mls/hr Q20H 12/12/19 10:15 12/16/19 21:59 DC 12/15/19 21:47 50 MLS/HR Amlodipine Besylate (Norvasc) 5 mg DAILY 12/10/19 17:00 12/23/19 08:24 5 MG Artificial Tears (Artificial Tears) 1 drop [id number] 12/10/19 17:00 12/10/19 16:44 DC Ascorbic Acid (Vitamin C) 500 mg DAILY 12/17/19 15:00 12/21/19 11:07 DC 12/21/19 09:57 500 MG Aspirin (Ecotrin) 81 mg DAILY 12/10/19 17:00 12/23/19 08:23 81 MG Azithromycin 250 ml @ 250 mls/hr 1X ONCE 12/10/19 16:30 12/10/19 17:29 UNV Azithromycin 250 mg/Sodium Chloride 250 ml @ 250 mls/hr Q24H 12/15/19 10:00 12/19/19 14:25 DC 12/19/19 09:32 250 MLS/HR Azithromycin 500 mg/Sodium Chloride 250 ml @ 250 mls/hr Q24H 12/10/19 18:00 12/13/19 11:18 DC 12/12/19 17:21 250 MLS/HR Calcium Chloride 2000 mg/Sodium Chloride 120 ml @ 240 mls/hr 1X ONCE 12/21/19 15:15 12/21/19 15:44 DC 12/21/19 15:48 240 MLS/HR Carbidopa/Levodopa (Sinemet 25/100) 2 tab TID 12/10/19 17:00 12/23/19 08:24 2 TAB Ceftriaxone Sodium (Rocephin) 1 gm Q24H 12/10/19 18:00 12/13/19 09:07 DC 12/12/19 17:24 1 GM Cetirizine HCl (ZyrTEC) 10 mg DAILY 12/10/19 17:00 12/21/19 11:07 DC 12/21/19 09:57 10 MG Chlorhexidine Gluconate (Peridex) 15 ml BID 12/13/19 21:00 12/23/19 09:52 DC 12/23/19 08:36 15 ML Darbepoetin Devin (ARANESP for DIALYSIS PTS) 60 mcg [id number] 12/19/19 21:00 12/19/19 21:20 60 MCG Dextrose (Dextrose 50%-Water Syringe) 12.5 gm PRN Q15MIN PRN 12/20/19 17:15 UNV Enoxaparin Sodium (Lovenox 30mg Syringe) 30 mg Q24H 12/12/19 12:00 12/22/19 09:31 DC 12/21/19 12:42 30 MG Fentanyl Citrate 30 ml @ 2.5 mls/hr CONT PRN 12/13/19 10:15 12/23/19 11:10 2.5 MLS/HR Ferrous Sulfate (Feosol) 325 mg DAILY08 12/10/19 17:00 12/23/19 08:23 325 MG Fluticasone Propionate (Flonase) 2 spray DAILY 12/11/19 09:00 12/21/19 11:07 DC 12/16/19 09:00 2 SPRAY Furosemide 100 mg/ Sodium Chloride 100 ml @ 5 mls/hr Q20H 12/21/19 15:00 12/23/19 08:52 DC 12/22/19 08:58 5 MLS/HR Glipizide (Glucotrol) 5 mg DAILYWSUP 12/10/19 17:00 12/11/19 08:03 DC 12/10/19 17:18 5 MG Heparin Sodium (Porcine) (Heparin Sodium) 5,000 unit Q12HR 12/22/19 21:00 Cancel Hydrochlorothiazide (Hydrodiuril) 25 mg DAILY 12/10/19 17:00 12/16/19 12:52 DC 12/16/19 09:04 25 MG Hydroxychloroquine Sulfate (Plaquenil) 200 mg BID 12/18/19 11:00 12/18/19 21:01 DC 12/18/19 22:23 200 MG Info (Tpn Per Pharmacy) 1 each PRN DAILY PRN 12/16/19 13:00 12/23/19 10:21 1 EACH Insulin Glargine (Lantus Syringe) 24 unit DAILY@1800 12/21/19 18:00 12/22/19 20:20 24 UNIT Insulin Human Lispro (HumaLOG) 0-5 UNITS Q6HRS 12/20/19 18:00 12/23/19 11:40 3 UNITS Lactobacillus Rhamnosus (Culturelle) 1 cap BID 12/11/19 21:00 12/15/19 08:34 DC 12/14/19 20:48 1 CAP Levothyroxine Sodium (Synthroid) 50 mcg DAILY06 12/11/19 06:00 12/21/19 11:07 DC 12/21/19 05:50 50 MCG Linezolid/Dextrose 300 ml @ 300 mls/hr Q12HR 12/19/19 21:00 12/23/19 08:39 300 MLS/HR Lisinopril (Prinivil) 10 mg DAILY 12/10/19 17:00 12/18/19 11:12 DC 12/18/19 10:03 10 MG Metoclopramide HCl (Reglan Vial) 5 mg PRN Q6HRS PRN 12/18/19 09:15 12/18/19 09:55 5 MG Midazolam HCl 100 mg/Sodium Chloride 100 ml @ 1 mls/hr CONT PRN 12/16/19 12:15 12/23/19 03:16 10 MLS/HR Midazolam HCl 50 mg/Sodium Chloride 50 ml @ 1 mls/hr CONT PRN 12/16/19 12:15 12/16/19 12:10 DC Morphine Sulfate (Morphine Sulfate) 4 mg PRN Q1HR PRN 12/13/19 10:15 12/13/19 12:40 4 MG Non-Formulary Medication (Carboxymethylcellulose Sodium (Lubricant Eye Drops)) 1 each HS 12/10/19 21:00 UNV Norepinephrine Bitartrate 8 mg/ Dextrose 258 ml @ 13.545 mls/ hr CONT PRN 12/13/19 15:30 12/16/19 05:15 7.9 MLS/HR Ondansetron HCl (Zofran) 4 mg PRN Q6HRS PRN 12/18/19 09:15 12/18/19 09:55 4 MG Pantoprazole Sodium (PROTONIX VIAL for IV PUSH) 40 mg DAILYAC 12/17/19 09:00 12/21/19 11:07 DC 12/21/19 09:56 40 MG Pantoprazole Sodium (Protonix) 40 mg DAILYAC 12/10/19 16:30 12/17/19 07:44 DC 12/16/19 09:04 40 MG Piperacillin Sod/ Tazobactam Sod 2.25 gm/Sodium Chloride 50 ml @ 100 mls/hr Q6HRS 12/19/19 18:00 12/23/19 11:23 100 MLS/HR Piperacillin Sod/ Tazobactam Sod 3.375 gm/Sodium Chloride 50 ml @ 100 mls/hr Q6HRS 12/13/19 10:00 12/19/19 12:21 DC 12/19/19 11:39 100 MLS/HR Piperacillin Sod/ Tazobactam Sod 4.5 gm/Sodium Chloride 100 ml @ 200 mls/hr Q6HRS 12/13/19 12:00 UNV Propofol 100 ml @ As Directed STK-MED ONCE 12/13/19 09:33 12/13/19 14:12 DC Simvastatin (Zocor) 20 mg QHS 12/10/19 21:00 12/13/19 11:28 DC 12/11/19 21:31 20 MG Sodium Bicarbonate 50 meq/Sodium Chloride 1,050 ml @ 100 mls/hr [id number] 12/17/19 12:30 12/21/19 08:00 DC 12/20/19 18:49 100 MLS/HR Sodium Polystyrene Sulfonate (Kayexalate) 15 gm 1X ONCE 12/09/19 13:45 12/09/19 13:46 DC 12/09/19 14:35 15 GM Sodium Acetate 60 meq/Potassium Chloride 10 meq/ Potassium Phosphate 10 mmol/ Calcium Gluconate 5 meq/ Multivitamins 10 ml/Chromium/ Copper/Manganese/ Seleni/Zn 0.5 ml/ Total Parenteral Nutrition/Amino Acids/Dextrose/ Fat Emulsion Intravenous 1,200 ml @ 50 mls/hr TPN CONT 12/21/19 22:00 12/22/19 21:59 DC 12/21/19 21:27 50 MLS/HR Sodium Acetate 60 meq/Potassium Chloride 20 meq/ Potassium Phosphate 10 mmol/ Magnesium Sulfate 10 meq/Calcium Gluconate 10 meq/ Multivitamins 10 ml/Chromium/ Copper/Manganese/ Seleni/Zn 0.5 ml/ Total Parenteral Nutrition/Amino Acids/Dextrose 1,200 ml @ 50 mls/hr TPN CONT 12/16/19 22:00 12/17/19 21:59 DC 12/16/19 22:24 50 MLS/HR Sodium Acetate 60 meq/Potassium Chloride 20 meq/ Potassium Phosphate 10 mmol/ Magnesium Sulfate 10 meq/Calcium Gluconate 10 meq/ Multivitamins 10 ml/Chromium/ Copper/Manganese/ Seleni/Zn 0.5 ml/ Total Parenteral Nutrition/Amino Acids/Dextrose/ Fat Emulsion Intravenous 1,200 ml @ 50 mls/hr TPN CONT 12/17/19 22:00 12/18/19 21:59 DC 12/17/19 23:00 50 MLS/HR Sodium Acetate 60 meq/Potassium Phosphate 10 mmol/ Multivitamins 10 ml/Chromium/ Copper/Manganese/ Seleni/Zn 0.5 ml/ Total Parenteral Nutrition/Amino Acids/Dextrose/ Fat Emulsion Intravenous 1,056 ml @ 44 mls/hr TPN CONT 12/23/19 22:00 12/24/19 21:59 Sodium Bicarbonate (Sodium Bicarb Adult 8.4% Syr) 100 meq 1X ONCE 12/23/19 08:45 12/23/19 08:46 DC 12/23/19 09:37 100 MEQ Sodium Chloride 500 ml @ 500 mls/hr 1X ONCE 12/18/19 09:15 12/18/19 10:14 DC 12/18/19 09:15 500 MLS/HR Tamsulosin HCl (Flomax) 0.4 mg DAILY 12/10/19 17:00 12/21/19 11:07 DC 12/21/19 09:58 0.4 MG Vancomycin HCl (Vanco Per Pharmacy) 1 each PRN DAILY PRN 12/13/19 09:00 12/19/19 14:26 DC 12/18/19 10:49 1 EACH Vancomycin HCl (Vancomycin Random Level) 1 each 1X ONCE 12/14/19 05:00 12/14/19 05:01 DC 12/14/19 04:52 1 EACH Vancomycin HCl (Vancomycin Trough Level) 1 each 1X ONCE 12/19/19 10:30 12/19/19 10:31 DC 12/19/19 09:47 1 EACH Vancomycin HCl 1.5 gm/Sodium Chloride 500 ml @ 250 mls/hr 1X ONCE 12/13/19 10:00 12/13/19 11:59 DC 12/13/19 11:11 250 MLS/HR Vancomycin HCl 1 gm/Sodium Chloride 250 ml @ 250 mls/hr Q36H 12/17/19 23:00 12/19/19 14:25 DC 12/19/19 11:39 250 MLS/HR Vecuronium [place] (Norcuron Bolus) 6 mg Q4HRS PRN 12/17/19 08:45 12/17/19 11:46 6 MG Warfarin Sodium (Coumadin Per Physician) 1 each PRN DAILY PRN 12/10/19 16:30 12/10/19 16:44 DC Warfarin Sodium (Coumadin) 3 mg 1X 12/10/19 16:00 12/10/19 16:44 DC Zinc Sulfate (Orazinc) 220 mg DAILY 12/17/19 15:00 12/21/19 11:07 DC 12/21/19 09:57 220 MG Lab Laboratory Tests Test 12/22/19 17:21 12/22/19 23:43 12/23/19 06:00 12/23/19 06:14 Glucose (Fingerstick) 160 mg/dL (70-99) 197 mg/dL (70-99) 201 mg/dL (70-99) Sodium Level 133 mmol/L (136-145) Potassium Level 4.5 mmol/L (3.5-5.1) Chloride Level 98 mmol/L (98-107) Carbon Dioxide Level 20 mmol/L (21-32) Anion Gap 15 (6-14) Blood Urea Nitrogen 102 mg/dL (8-26) Creatinine 6.2 mg/dL (0.7-1.3) Estimated GFR (Cockcroft-Gault) 10.4 BUN/Creatinine Ratio 16 (6-20) Glucose Level 210 mg/dL (70-99) Calcium Level 8.0 mg/dL (8.5-10.1) Phosphorus Level 5.4 mg/dL (2.6-4.7) Magnesium Level 2.4 mg/dL (1.8-2.4) Total Bilirubin 4.6 mg/dL (0.2-1.0) Aspartate Amino Transf (AST/SGOT) 47 U/L (15-37) Alanine Aminotransferase (ALT/SGPT) 7 U/L (16-63) Alkaline Phosphatase 46 U/L (46-116) Total Protein 5.7 g/dL (6.4-8.2) Albumin 1.0 g/dL (3.4-5.0) Albumin/Globulin Ratio 0.2 (1.0-1.7) Test 12/23/19 08:30 12/23/19 11:30 O2 Saturation 47 % (92-99) Arterial Blood pH 7.24 (7.35-7.45) Arterial Blood pCO2 at Patient Temp 46 mmHg (35-46) Arterial Blood pO2 at Patient Temp < 42 mmHg (65-108) Arterial Blood HCO3 19 mmol/L (21-28) Arterial Blood Base Excess -8 mmol/L (-3-3) FiO2 70 Glucose (Fingerstick) 228 mg/dL (70-99) Results All relevant outside records, renal labs, imaging studies, telemetry/EKG's were reviewed. WILLA ANDREA MD Dec 23, 2019 13:07
[2019-12-23] MEDS: INSULIN GLARGINE SYRINGE. SQ SCH (20:06)
[2019-12-23] MEDS: NOREPINEPHRINE VIAL 8 MG in IV DEXTROSE 5% 250 ML IV PRN (21:31)
[2019-12-23] MEDS ORDERED: AMINO ACID IV SCH ×7 (22:00)
[2019-12-23] MEDS ORDERED: [UNRECOGNIZED DRUG - OTHER] IV SCH ×7 (22:00)
[2019-12-23] MEDS ORDERED: TOTAL PARENTERAL NUTRITION IV SCH ×7 (22:00)
[2019-12-23] MEDS ORDERED: DEXTROSE 70% IV SCH ×7 (22:00)
[2019-12-24] VITALS (22 sets, daily range): BP systolic 99–149; BP diastolic 44–67
[2019-12-24] MEDS: INSULIN LISPRO 300 UNITS/3 ML VIAL. SQ SCH ×4 (00:02→18:00)
[2019-12-24] MEDS: PIPERACILLIN/TAZOBACTAM 2.25 GM in IV NORMAL SALINE 50ML 50 ML IV SCH ×4 (05:42→23:52)
[2019-12-24 06:33] LABS: CALCIUM 7.9 mg/dL (8.5-10.1); GFR 9.1; POTASSIUM 4.6 mmol/L (3.5-5.1)
[2019-12-24] MEDS: CARBIDOPA/LEVODOPA 25/100MG TABLET PO SCH ×3 (08:23→21:24)
[2019-12-24] MEDS: ASPIRIN ENTERIC COATED 81 MG TABLET.DR. PO SCH (08:23)
[2019-12-24] MEDS: FERROUS SULFATE 325 MG TABLET. PO SCH (08:24)
[2019-12-24] MEDS: amLODIPine BESYLATE 5 MG TABLET PO SCH (08:24)
[2019-12-24 08:53] LABS: BASE EXCESS ABG -10 mmol/L (-3-3); HCO3 ABG 17 mmol/L (21-28); PCO2 ABG 38 mmHg (35-46); PO2 ABG 76 mmHg (65-108); SAT O2 ABG 93 % (92-99)
[2019-12-24 09:07] LABS: FIO2 ABG 70
[2019-12-24] MEDS: MIDAZOLAM HCL 100 MG in IV NORMAL SALINE 100ML 100 ML IV PRN ×2 (09:41→21:35)
--- NOTE | 2019-12-24 10:17 | PDOC ---
SUBJECTIVE ROS Intubated, sedated OBJECTIVE Vital Signs Vital Signs Date Time Temp Pulse Resp B/P (MAP) Pulse Ox O2 Delivery O2 Flow Rate FiO2 12/24/19 09:43 24 Ventilator 12/24/19 08:24 46 130/60 12/24/19 08:00 15.0 12/24/19 06:00 93 12/24/19 04:00 98.7 98.7 I & 0 Intake and Output 12/24/19 07:00 Intake Total 2102.0 ml Output Total 160 ml Balance 1942.0 ml IV Total 1952.0 ml Other 150 ml Output Urine Total 10 ml Gastric Drainage Total 150 ml PHYSICAL EXAM Physical Exam GEN- Intubated, sedated Respiratory: ventilator Heart: S1S2 per the monitor Extremities: Edematous Neurology: other (SEDATED) Musculoskeletal: Other (SEDATED ON THE VENT) [place] + DIAGNOSIS/ASSESSMENT Assessment & Plan BIA-most likely associated with ATN and generalized illness associated with COVID-19. Worsening renal function, Poor Candidate for HD as has been previously documented.Anuric, No significant response with Lasix -dced 12/22 Multiple comorbidities, ongoing potentially terminal illness, is felt by all involved, that the patient was not significantly benefit from dialysis. CKD STAGE 3 WITH BASELINE CR OF 2.0. ACUTE RESP FAILURE-ARDS - s/p -hydroxychloroquine, Zithromax ( dc'd at day 5) COVID - 19 PNEUMONIA: Lymphocytopenia: Poor prognosis ThromboCytopenia: Appears to be associated with underlying illness Discussed with Dr. Yancey COMMENT/RELEVANT DATA Meds Current Medications Medications (Trade) Dose Ordered Sig/Aga Start Time Stop Time Status Last Admin Dose Admin Acetaminophen (Tylenol Supp) 650 mg PRN Q6HRS PRN 12/12/19 07:45 12/15/19 17:55 650 MG Acetaminophen (Tylenol) 1,000 mg PRN Q6HRS PRN 12/09/19 15:30 12/09/19 18:00 DC Albumin Human 100 ml @ 100 mls/hr PRN Q8HRS PRN 12/21/19 15:15 Allopurinol (Zyloprim) 100 mg DAILY 12/10/19 17:00 12/22/19 08:05 DC 12/21/19 10:02 100 MG Amino Acids/ Glycerin/ Electrolytes 1,000 ml @ 50 mls/hr Q20H 12/12/19 10:15 12/16/19 21:59 DC 12/15/19 21:47 50 MLS/HR Amlodipine Besylate (Norvasc) 5 mg DAILY 12/10/19 17:00 12/24/19 08:24 5 MG Artificial Tears (Artificial Tears) 1 drop [id number] 12/10/19 17:00 12/10/19 16:44 DC Ascorbic Acid (Vitamin C) 500 mg DAILY 12/17/19 15:00 12/21/19 11:07 DC 12/21/19 09:57 500 MG Aspirin (Ecotrin) 81 mg DAILY 12/10/19 17:00 12/24/19 08:23 81 MG Azithromycin 250 ml @ 250 mls/hr 1X ONCE 12/10/19 16:30 12/10/19 17:29 UNV Azithromycin 250 mg/Sodium Chloride 250 ml @ 250 mls/hr Q24H 12/15/19 10:00 12/19/19 14:25 DC 12/19/19 09:32 250 MLS/HR Azithromycin 500 mg/Sodium Chloride 250 ml @ 250 mls/hr Q24H 12/10/19 18:00 12/13/19 11:18 DC 12/12/19 17:21 250 MLS/HR Calcium Chloride 2000 mg/Sodium Chloride 120 ml @ 240 mls/hr 1X ONCE 12/21/19 15:15 12/21/19 15:44 DC 12/21/19 15:48 240 MLS/HR Carbidopa/Levodopa (Sinemet 25/100) 2 tab TID 12/10/19 17:00 12/24/19 08:23 2 TAB Ceftriaxone Sodium (Rocephin) 1 gm Q24H 12/10/19 18:00 12/13/19 09:07 DC 12/12/19 17:24 1 GM Cetirizine HCl (ZyrTEC) 10 mg DAILY 12/10/19 17:00 12/21/19 11:07 DC 12/21/19 09:57 10 MG Chlorhexidine Gluconate (Peridex) 15 ml BID 12/13/19 21:00 12/23/19 09:52 DC 12/23/19 08:36 15 ML Darbepoetin Devin (ARANESP for DIALYSIS PTS) 60 mcg [id number] 12/19/19 21:00 12/19/19 21:20 60 MCG Dextrose (Dextrose 50%-Water Syringe) 12.5 gm PRN Q15MIN PRN 12/20/19 17:15 UNV Enoxaparin Sodium (Lovenox 30mg Syringe) 30 mg Q24H 12/12/19 12:00 12/22/19 09:31 DC 12/21/19 12:42 30 MG Fentanyl Citrate 30 ml @ 2.5 mls/hr CONT PRN 12/13/19 10:15 12/24/19 09:43 2.5 MLS/HR Ferrous Sulfate (Feosol) 325 mg DAILY08 12/10/19 17:00 12/24/19 08:24 325 MG Fluticasone Propionate (Flonase) 2 spray DAILY 12/11/19 09:00 12/21/19 11:07 DC 12/16/19 09:00 2 SPRAY Furosemide 100 mg/ Sodium Chloride 100 ml @ 5 mls/hr Q20H 12/21/19 15:00 12/23/19 08:52 DC 12/22/19 08:58 5 MLS/HR Glipizide (Glucotrol) 5 mg DAILYWSUP 12/10/19 17:00 12/11/19 08:03 DC 12/10/19 17:18 5 MG Heparin Sodium (Porcine) (Heparin Sodium) 5,000 unit Q12HR 12/22/19 21:00 Cancel Hydrochlorothiazide (Hydrodiuril) 25 mg DAILY 12/10/19 17:00 12/16/19 12:52 DC 12/16/19 09:04 25 MG Hydroxychloroquine Sulfate (Plaquenil) 200 mg BID 12/18/19 11:00 12/18/19 21:01 DC 12/18/19 22:23 200 MG Info (Tpn Per Pharmacy) 1 each PRN DAILY PRN 12/16/19 13:00 12/23/19 10:21 1 EACH Insulin Glargine (Lantus Syringe) 24 unit DAILY@1800 12/21/19 18:00 12/23/19 20:06 24 UNIT Insulin Human Lispro (HumaLOG) 0-5 UNITS Q6HRS 12/20/19 18:00 12/24/19 06:01 3 UNITS Lactobacillus Rhamnosus (Culturelle) 1 cap BID 12/11/19 21:00 12/15/19 08:34 DC 12/14/19 20:48 1 CAP Levothyroxine Sodium (Synthroid) 50 mcg DAILY06 12/11/19 06:00 12/21/19 11:07 DC 12/21/19 05:50 50 MCG Linezolid/Dextrose 300 ml @ 300 mls/hr Q12HR 12/19/19 21:00 12/24/19 09:44 300 MLS/HR Lisinopril (Prinivil) 10 mg DAILY 12/10/19 17:00 12/18/19 11:12 DC 12/18/19 10:03 10 MG Metoclopramide HCl (Reglan Vial) 5 mg PRN Q6HRS PRN 12/18/19 09:15 12/18/19 09:55 5 MG Midazolam HCl 100 mg/Sodium Chloride 100 ml @ 1 mls/hr CONT PRN 12/16/19 12:15 12/24/19 09:41 10 MLS/HR Midazolam HCl 50 mg/Sodium Chloride 50 ml @ 1 mls/hr CONT PRN 12/16/19 12:15 12/16/19 12:10 DC Morphine Sulfate (Morphine Sulfate) 4 mg PRN Q1HR PRN 12/13/19 10:15 12/13/19 12:40 4 MG Non-Formulary Medication (Carboxymethylcellulose Sodium (Lubricant Eye Drops)) 1 each HS 12/10/19 21:00 UNV Norepinephrine Bitartrate 8 mg/ Dextrose 258 ml @ 13.545 mls/ hr CONT PRN 12/13/19 15:30 12/23/19 21:31 13.545 MLS/HR Ondansetron HCl (Zofran) 4 mg PRN Q6HRS PRN 12/18/19 09:15 12/18/19 09:55 4 MG Pantoprazole Sodium (PROTONIX VIAL for IV PUSH) 40 mg DAILYAC 12/17/19 09:00 12/21/19 11:07 DC 12/21/19 09:56 40 MG Pantoprazole Sodium (Protonix) 40 mg DAILYAC 12/10/19 16:30 12/17/19 07:44 DC 12/16/19 09:04 40 MG Piperacillin Sod/ Tazobactam Sod 2.25 gm/Sodium Chloride 50 ml @ 100 mls/hr Q6HRS 12/19/19 18:00 12/24/19 05:42 100 MLS/HR Piperacillin Sod/ Tazobactam Sod 3.375 gm/Sodium Chloride 50 ml @ 100 mls/hr Q6HRS 12/13/19 10:00 12/19/19 12:21 DC 12/19/19 11:39 100 MLS/HR Piperacillin Sod/ Tazobactam Sod 4.5 gm/Sodium Chloride 100 ml @ 200 mls/hr Q6HRS 12/13/19 12:00 UNV Propofol 100 ml @ As Directed STK-MED ONCE 12/13/19 09:33 12/13/19 14:12 DC Simvastatin (Zocor) 20 mg QHS 12/10/19 21:00 12/13/19 11:28 DC 12/11/19 21:31 20 MG Sodium Bicarbonate 50 meq/Sodium Chloride 1,050 ml @ 100 mls/hr [id number] 12/17/19 12:30 12/21/19 08:00 DC 12/20/19 18:49 100 MLS/HR Sodium Polystyrene Sulfonate (Kayexalate) 15 gm 1X ONCE 12/09/19 13:45 12/09/19 13:46 DC 12/09/19 14:35 15 GM Sodium Acetate 60 meq/Potassium Chloride 10 meq/ Potassium Phosphate 10 mmol/ Calcium Gluconate 5 meq/ Multivitamins 10 ml/Chromium/ Copper/Manganese/ Seleni/Zn 0.5 ml/ Total Parenteral Nutrition/Amino Acids/Dextrose/ Fat Emulsion Intravenous 1,200 ml @ 50 mls/hr TPN CONT 12/21/19 22:00 12/22/19 21:59 DC 12/21/19 21:27 50 MLS/HR Sodium Acetate 60 meq/Potassium Chloride 20 meq/ Potassium Phosphate 10 mmol/ Magnesium Sulfate 10 meq/Calcium Gluconate 10 meq/ Multivitamins 10 ml/Chromium/ Copper/Manganese/ Seleni/Zn 0.5 ml/ Total Parenteral Nutrition/Amino Acids/Dextrose 1,200 ml @ 50 mls/hr TPN CONT 12/16/19 22:00 12/17/19 21:59 DC 12/16/19 22:24 50 MLS/HR Sodium Acetate 60 meq/Potassium Chloride 20 meq/ Potassium Phosphate 10 mmol/ Magnesium Sulfate 10 meq/Calcium Gluconate 10 meq/ Multivitamins 10 ml/Chromium/ Copper/Manganese/ Seleni/Zn 0.5 ml/ Total Parenteral Nutrition/Amino Acids/Dextrose/ Fat Emulsion Intravenous 1,200 ml @ 50 mls/hr TPN CONT 12/17/19 22:00 12/18/19 21:59 DC 12/17/19 23:00 50 MLS/HR Sodium Acetate 60 meq/Potassium Phosphate 10 mmol/ Multivitamins 10 ml/Chromium/ Copper/Manganese/ Seleni/Zn 0.5 ml/ Total Parenteral Nutrition/Amino Acids/Dextrose/ Fat Emulsion Intravenous 1,056 ml @ 44 mls/hr TPN CONT 12/23/19 22:00 12/24/19 21:59 12/23/19 21:43 44 MLS/HR Sodium Bicarbonate (Sodium Bicarb Adult 8.4% Syr) 100 meq 1X ONCE 12/23/19 08:45 12/23/19 08:46 DC 12/23/19 09:37 100 MEQ Sodium Chloride 500 ml @ 500 mls/hr 1X ONCE 12/18/19 09:15 12/18/19 10:14 DC 12/18/19 09:15 500 MLS/HR Tamsulosin HCl (Flomax) 0.4 mg DAILY 12/10/19 17:00 12/21/19 11:07 DC 12/21/19 09:58 0.4 MG Vancomycin HCl (Vanco Per Pharmacy) 1 each PRN DAILY PRN 12/13/19 09:00 12/19/19 14:26 DC 12/18/19 10:49 1 EACH Vancomycin HCl (Vancomycin Random Level) 1 each 1X ONCE 12/14/19 05:00 12/14/19 05:01 DC 12/14/19 04:52 1 EACH Vancomycin HCl (Vancomycin Trough Level) 1 each 1X ONCE 12/19/19 10:30 12/19/19 10:31 DC 12/19/19 09:47 1 EACH Vancomycin HCl 1.5 gm/Sodium Chloride 500 ml @ 250 mls/hr 1X ONCE 12/13/19 10:00 12/13/19 11:59 DC 12/13/19 11:11 250 MLS/HR Vancomycin HCl 1 gm/Sodium Chloride 250 ml @ 250 mls/hr Q36H 12/17/19 23:00 12/19/19 14:25 DC 12/19/19 11:39 250 MLS/HR Vecuronium [place] (Norcuron Bolus) 6 mg Q4HRS PRN 12/17/19 08:45 12/17/19 11:46 6 MG Warfarin Sodium (Coumadin Per Physician) 1 each PRN DAILY PRN 12/10/19 16:30 12/10/19 16:44 DC Warfarin Sodium (Coumadin) 3 mg 1X 12/10/19 16:00 12/10/19 16:44 DC Zinc Sulfate (Orazinc) 220 mg DAILY 12/17/19 15:00 12/21/19 11:07 DC 12/21/19 09:57 220 MG Lab Laboratory Tests Test 12/23/19 11:30 12/23/19 17:07 12/23/19 23:58 12/24/19 06:08 Glucose (Fingerstick) 228 mg/dL (70-99) 205 mg/dL (70-99) 243 mg/dL (70-99) Sodium Level 130 mmol/L (136-145) Potassium Level 4.6 mmol/L (3.5-5.1) Chloride Level 94 mmol/L (98-107) Carbon Dioxide Level 19 mmol/L (21-32) Anion Gap 17 (6-14) Blood Urea Nitrogen 118 mg/dL (8-26) Creatinine 7.0 mg/dL (0.7-1.3) Estimated GFR (Cockcroft-Gault) 9.1 Glucose Level 237 mg/dL (70-99) Calcium Level 7.9 mg/dL (8.5-10.1) Phosphorus Level 6.3 mg/dL (2.6-4.7) Test 12/24/19 08:00 O2 Saturation 93 % (92-99) Arterial Blood pH 7.26 (7.35-7.45) Arterial Blood pCO2 at Patient Temp 38 mmHg (35-46) Arterial Blood pO2 at Patient Temp 76 mmHg (65-108) Arterial Blood HCO3 17 mmol/L (21-28) Arterial Blood Base Excess -10 mmol/L (-3-3) FiO2 70 Results All relevant outside records, renal labs, imaging studies, telemetry/EKG's were reviewed. WILLA ANDREA MD Dec 24, 2019 10:17
[2019-12-24] MEDS: TPN PER PHARMACY MC PRN (12:36)
--- NOTE | 2019-12-24 13:52 | PDOC ---
PROGRESS NOTES Chief Complaint Chief Complaint Covid 19 positive ARDS Respiratory failure requiring intubation and mechanical ventilation Acute renal failure secondary to vasomotor etiology most likely, worsening creatinine and minimal output. quite poor prognosis, going into multiorgan failure Normal anion gap acidosis Hypocalcemia Severe protein calorie malnutrition Normocytic anemia Pneumonia CKD stage 4 Debility Weakness Fevers Arthritis, diabetes, back surgery, knee surgery and thyroid surgery. Plan; Patient receiving linezolid and zosyn continue supportive measures vent management as per critical anesthesiologist and critical care prognosis guarded will discuss with training consultant regarding possible transition to comfort measures treatment plan DVT prohpylaxis: lovenox COVID-19 CRITERIA: The patient was evaluated during the global COVID-19 pandemic, and that diagnosis was suspected/considered upon their initial presentation. Their evaluation, treatment and testing was consistent with current guidelines for patients who present with complaints or symptoms that may be related to COVID-19. History of Present Illness History of Present Illness 12/24/2019 Patient seen and examined in the ICU He remains mechanically ventilated no acute events reported overnight. Chart reviewed Hemoglobin, platelet and increase in creatinine noted, again will discuss with training consultant regarding transitioning to a palliative care treatment plan given that patient most likely will not recover from this disease process. Discussed with RN Vitals Vitals Vital Signs Date Time Temp Pulse Resp B/P (MAP) Pulse Ox O2 Delivery O2 Flow Rate FiO2 12/24/19 12:15 93 Ventilator 12/24/19 12:00 15.0 12/24/19 09:43 24 12/24/19 08:24 46 130/60 12/24/19 04:00 98.7 98.7 Physical Exam General: Other (bucking the vent, we just ordered some paralytics) Heart: Regular rate, Normal S1, Normal S2, No murmurs, Other (tachycardic at 102 bpm distant S1-S2) Abdomen: Soft Extremities: No clubbing, No cyanosis Skin: No rashes, No breakdown Labs LABS Laboratory Tests Test 12/23/19 17:07 12/23/19 23:58 12/24/19 06:08 12/24/19 08:00 Glucose (Fingerstick) 205 mg/dL (70-99) 243 mg/dL (70-99) Sodium Level 130 mmol/L (136-145) Potassium Level 4.6 mmol/L (3.5-5.1) Chloride Level 94 mmol/L (98-107) Carbon Dioxide Level 19 mmol/L (21-32) Anion Gap 17 (6-14) Blood Urea Nitrogen 118 mg/dL (8-26) Creatinine 7.0 mg/dL (0.7-1.3) Estimated GFR (Cockcroft-Gault) 9.1 Glucose Level 237 mg/dL (70-99) Calcium Level 7.9 mg/dL (8.5-10.1) Phosphorus Level 6.3 mg/dL (2.6-4.7) O2 Saturation 93 % (92-99) Arterial Blood pH 7.26 (7.35-7.45) Arterial Blood pCO2 at Patient Temp 38 mmHg (35-46) Arterial Blood pO2 at Patient Temp 76 mmHg (65-108) Arterial Blood HCO3 17 mmol/L (21-28) Arterial Blood Base Excess -10 mmol/L (-3-3) FiO2 70 Assessment and Plan Assessmemt and Plan Problems Medical Problems: (1) Bilateral pneumonia Status: Acute (2) Fever Status: Acute (3) Hypoglycemia Status: Acute (4) Renal insufficiency Status: Acute (5) Suspected 2019 novel coronavirus infection Status: Acute (6) Weakness Status: Acute Comment Review of Relevant I have reviewed the following items sammie (where applicable) has been applied. Labs Laboratory Tests Test 12/22/19 17:21 12/22/19 23:43 12/23/19 06:00 12/23/19 06:14 Glucose (Fingerstick) 160 mg/dL (70-99) 197 mg/dL (70-99) 201 mg/dL (70-99) Sodium Level 133 mmol/L (136-145) Potassium Level 4.5 mmol/L (3.5-5.1) Chloride Level 98 mmol/L (98-107) Carbon Dioxide Level 20 mmol/L (21-32) Anion Gap 15 (6-14) Blood Urea Nitrogen 102 mg/dL (8-26) Creatinine 6.2 mg/dL (0.7-1.3) Estimated GFR (Cockcroft-Gault) 10.4 BUN/Creatinine Ratio 16 (6-20) Glucose Level 210 mg/dL (70-99) Calcium Level 8.0 mg/dL (8.5-10.1) Phosphorus Level 5.4 mg/dL (2.6-4.7) Magnesium Level 2.4 mg/dL (1.8-2.4) Total Bilirubin 4.6 mg/dL (0.2-1.0) Aspartate Amino Transf (AST/SGOT) 47 U/L (15-37) Alanine Aminotransferase (ALT/SGPT) 7 U/L (16-63) Alkaline Phosphatase 46 U/L (46-116) Total Protein 5.7 g/dL (6.4-8.2) Albumin 1.0 g/dL (3.4-5.0) Albumin/Globulin Ratio 0.2 (1.0-1.7) Test 12/23/19 08:30 12/23/19 11:30 12/23/19 17:07 12/23/19 23:58 O2 Saturation 47 % (92-99) Arterial Blood pH 7.24 (7.35-7.45) Arterial Blood pCO2 at Patient Temp 46 mmHg (35-46) Arterial Blood pO2 at Patient Temp < 42 mmHg (65-108) Arterial Blood HCO3 19 mmol/L (21-28) Arterial Blood Base Excess -8 mmol/L (-3-3) FiO2 70 Glucose (Fingerstick) 228 mg/dL (70-99) 205 mg/dL (70-99) 243 mg/dL (70-99) Test 12/24/19 06:08 12/24/19 08:00 Sodium Level 130 mmol/L (136-145) Potassium Level 4.6 mmol/L (3.5-5.1) Chloride Level 94 mmol/L (98-107) Carbon Dioxide Level 19 mmol/L (21-32) Anion Gap 17 (6-14) Blood Urea Nitrogen 118 mg/dL (8-26) Creatinine 7.0 mg/dL (0.7-1.3) Estimated GFR (Cockcroft-Gault) 9.1 Glucose Level 237 mg/dL (70-99) Calcium Level 7.9 mg/dL (8.5-10.1) Phosphorus Level 6.3 mg/dL (2.6-4.7) O2 Saturation 93 % (92-99) Arterial Blood pH 7.26 (7.35-7.45) Arterial Blood pCO2 at Patient Temp 38 mmHg (35-46) Arterial Blood pO2 at Patient Temp 76 mmHg (65-108) Arterial Blood HCO3 17 mmol/L (21-28) Arterial Blood Base Excess -10 mmol/L (-3-3) FiO2 70 Laboratory Tests Test 12/23/19 17:07 12/23/19 23:58 12/24/19 06:08 12/24/19 08:00 Glucose (Fingerstick) 205 mg/dL (70-99) 243 mg/dL (70-99) Sodium Level 130 mmol/L (136-145) Potassium Level 4.6 mmol/L (3.5-5.1) Chloride Level 94 mmol/L (98-107) Carbon Dioxide Level 19 mmol/L (21-32) Anion Gap 17 (6-14) Blood Urea Nitrogen 118 mg/dL (8-26) Creatinine 7.0 mg/dL (0.7-1.3) Estimated GFR (Cockcroft-Gault) 9.1 Glucose Level 237 mg/dL (70-99) Calcium Level 7.9 mg/dL (8.5-10.1) Phosphorus Level 6.3 mg/dL (2.6-4.7) O2 Saturation 93 % (92-99) Arterial Blood pH 7.26 (7.35-7.45) Arterial Blood pCO2 at Patient Temp 38 mmHg (35-46) Arterial Blood pO2 at Patient Temp 76 mmHg (65-108) Arterial Blood HCO3 17 mmol/L (21-28) Arterial Blood Base Excess -10 mmol/L (-3-3) FiO2 70 Microbiology 12/17/19 Blood Culture - Final, Complete NO GROWTH AFTER 5 DAYS Medications Current Medications Acetaminophen (Tylenol) 1,000 mg 1X ONCE PO ; Start 12/09/19 at 12:15; Stop 12/09/19 at 12:16; Status DC Sodium Chloride 1,000 ml @ 1,000 mls/hr Q1H IV Last administered on 12/09/19at 13:48; Start 12/09/19 at 12:01; Stop 12/09/19 at 13:00; Status DC Ceftriaxone Sodium (Rocephin) 1 gm 1X ONCE IVP Last administered on 12/09/19at 13:49; Start 12/09/19 at 13:30; Stop 12/09/19 at 13:31; Status DC Vancomycin HCl 250 ml @ 250 mls/hr 1X ONCE IV Last administered on 12/09/19at 13:49; Start 3/23/20 at 13:30; Stop 12/09/19 at 14:29; Status DC Dextrose (Dextrose 50%-Water Syringe) 12.5 gm 1X ONCE IV Last administered on 12/09/19at 13:48; Start 12/09/19 at 13:45; Stop 12/09/19 at 13:46; Status DC Sodium Polystyrene Sulfonate (Kayexalate) 15 gm 1X ONCE PO Last administered on 12/09/19at 14:35; Start 12/09/19 at 13:45; Stop 12/09/19 at 13:46; Status DC Sodium Chloride 1,000 ml @ 150 mls/hr Q6H40M IV Last administered on 12/10/19at 09:00; Start 12/09/19 at 13:46; Stop 12/10/19 at 13:45; Status DC Dextrose (Dextrose 50%-Water Syringe) 25 gm 1X ONCE IV Last administered on 12/09/19at 15:09; Start 12/09/19 at 15:00; Stop 12/09/19 at 15:02; Status DC Acetaminophen (Tylenol) 1,000 mg PRN Q6HRS PRN PO FEVER Last administered on 12/20/19at 12:51; Start 12/09/19 at 15:30 Acetaminophen (Tylenol) 1,000 mg PRN Q6HRS PRN PO FEVER; Start 12/09/19 at 15:30; Stop 12/09/19 at 18:00; Status DC Dextrose (Dextrose 50%-Water Syringe) 25 gm 1X ONCE IV Last administered on 12/09/19at 22:38; Start 12/09/19 at 22:30; Stop 12/09/19 at 22:31; Status DC Dextrose (Dextrose 50%-Water Syringe) 12.5 gm PRN Q15MIN PRN IV SEE COMMENTS Last administered on 12/12/19at 21:21; Start 12/10/19 at 00:30 Allopurinol (Zyloprim) 100 mg DAILY PO Last administered on 12/21/19at 10:02; Start 12/10/19 at 17:00; Stop 12/22/19 at 08:05; Status DC Aspirin (Ecotrin) 81 mg DAILY PO Last administered on 12/24/19at 08:23; Start 12/10/19 at 17:00 Ferrous Sulfate (Feosol) 325 mg DAILY08 PO Last administered on 12/24/19at 08:24; Start 12/10/19 at 17:00 Fluticasone Propionate (Flonase) 2 spray DAILY NS Last administered on 12/16/19at 09:00; Start 12/11/19 at 09:00; Stop 12/21/19 at 11:07; Status DC Glipizide (Glucotrol) 2.5 mg DAILYAC PO Last administered on 12/21/19at 09:57; Start 12/11/19 at 07:30; Stop 12/21/19 at 11:07; Status DC Glipizide (Glucotrol) 5 mg DAILYWSUP PO Last administered on 12/10/19at 17:18; Start 12/10/19 at 17:00; Stop 12/11/19 at 08:03; Status DC Hydrochlorothiazide (Hydrodiuril) 25 mg DAILY PO Last administered on 12/16/19at 09:04; Start 12/10/19 at 17:00; Stop 12/16/19 at 12:52; Status DC Levothyroxine Sodium (Synthroid) 50 mcg DAILY06 PO Last administered on 12/21/19at 05:50; Start 12/11/19 at 06:00; Stop 12/21/19 at 11:07; Status DC Simvastatin (Zocor) 20 mg QHS PO Last administered on 12/11/19at 21:31; Start 12/10/19 at 21:00; Stop 12/13/19 at 11:28; Status DC Tamsulosin HCl (Flomax) 0.4 mg DAILY PO Last administered on 12/21/19at 09:58; Start 12/10/19 at 17:00; Stop 12/21/19 at 11:07; Status DC Warfarin Sodium (Coumadin) 3 mg 1X PO ; Start 12/10/19 at 16:00; Stop 12/10/19 at 16:44; Status DC Amlodipine Besylate (Norvasc) 5 mg DAILY PO Last administered on 12/24/19at 08:24; Start 12/10/19 at 17:00 Non-Formulary Medication (Carboxymethylcellulose Sodium (Lubricant Eye Drops)) 1 each HS OP ; Start 12/10/19 at 21:00; Status UNV Pantoprazole Sodium (Protonix) 40 mg DAILYAC PO Last administered on 12/16/19at 09:04; Start 12/10/19 at 16:30; Stop 12/17/19 at 07:44; Status DC Artificial Tears (Artificial Tears) 1 drop [id number] OU ; Start 12/10/19 at 17:00; Stop 12/10/19 at 16:44; Status DC Cetirizine HCl (ZyrTEC) 10 mg DAILY PO Last administered on 12/21/19at 09:57; Start 12/10/19 at 17:00; Stop 12/21/19 at 11:07; Status DC Warfarin Sodium (Coumadin Per Physician) 1 each PRN DAILY PRN MC SEE COMMENTS; Start 12/10/19 at 16:30; Stop 12/10/19 at 16:44; Status DC Ceftriaxone Sodium (Rocephin) 1 gm Q24H IVP Last administered on 12/12/19at 17:24; Start 12/10/19 at 18:00; Stop 12/13/19 at 09:07; Status DC Azithromycin 250 ml @ 250 mls/hr 1X ONCE IV ; Start 12/10/19 at 16:30; Stop 12/10/19 at 17:29; Status UNV Lisinopril (Prinivil) 10 mg DAILY PO Last administered on 12/18/19at 10:03; Start 12/10/19 at 17:00; Stop 12/18/19 at 11:12; Status DC Azithromycin 500 mg/Sodium Chloride 250 ml @ 250 mls/hr Q24H IV Last administered on 12/12/19at 17:21; Start 12/10/19 at 18:00; Stop 12/13/19 at 11:18; Status DC Carbidopa/Levodopa (Sinemet 25/100) 2 tab TID PO Last administered on 12/24/19at 08:23; Start 12/10/19 at 17:00 Lactobacillus Rhamnosus (Culturelle) 1 cap BID PO Last administered on 12/14/19at 20:48; Start 12/11/19 at 21:00; Stop 12/15/19 at 08:34; Status DC Acetaminophen (Tylenol Supp) 650 mg PRN Q6HRS PRN UT MILD PAIN / TEMP Last administered on 12/15/19at 17:55; Start 12/12/19 at 07:45 Amino Acids/ Glycerin/ Electrolytes 1,000 ml @ 50 mls/hr Q20H IV Last admin istered on 12/15/19at 21:47; Start 12/12/19 at 10:15; Stop 12/16/19 at 21:59; Status DC Sodium Chloride 1,000 ml @ 75 mls/hr [id number] IV Last administered on 12/17/19at 09:22; Start 12/12/19 at 11:00; Stop 12/17/19 at 11:52; Status DC Enoxaparin Sodium (Lovenox 30mg Syringe) 30 mg Q24H SQ Last administered on 12/21/19at 12:42; Start 12/12/19 at 12:00; Stop 12/22/19 at 09:31; Status DC Hydroxychloroquine Sulfate (Plaquenil) 400 mg BID PO Last administered on 12/14/19at 20:48; Start 12/13/19 at 09:00; Stop 12/14/19 at 21:01; Status DC Hydroxychloroquine Sulfate (Plaquenil) 200 mg BID PO Last administered on 12/17/19at 22:59; Start 12/15/19 at 09:00; Stop 12/17/19 at 21:01; Status DC Piperacillin Sod/ Tazobactam Sod 4.5 gm/Sodium Chloride 100 ml @ 200 mls/hr Q6HRS IV ; Start 12/13/19 at 12:00; Status UNV Vancomycin HCl (Vanco Per Pharmacy) 1 each PRN DAILY PRN MC SEE COMMENTS Last administered on 12/18/19at 10:49; Start 12/13/19 at 09:00; Stop 12/19/19 at 14:26; Status DC Piperacillin Sod/ Tazobactam Sod 3.375 gm/Sodium Chloride 50 ml @ 100 mls/hr Q6HRS IV Last administered on 12/19/19at 11:39; Start 12/13/19 at 10:00; Stop 12/19/19 at 12:21; Status DC Vancomycin HCl 1.5 gm/Sodium Chloride 500 ml @ 250 mls/hr 1X ONCE IV Last administered on 12/13/19at 11:11; Start 12/13/19 at 10:00; Stop 12/13/19 at 11:59; Status DC Fentanyl Citrate 30 ml @ 2.5 mls/hr CONT PRN IV SEE PROTOCOL Last administered on 12/24/19at 09:43; Start 12/13/19 at 10:15 Chlorhexidine Gluconate (Peridex) 15 ml BID MM Last administered on 12/23/19at 08:36; Start 12/13/19 at 21:00; Stop 12/23/19 at 09:52; Status DC Morphine Sulfate (Morphine Sulfate) 2 mg PRN Q1HR PRN IV SEE COMMENTS.; Start 12/13/19 at 10:15 Morphine Sulfate (Morphine Sulfate) 4 mg PRN Q1HR PRN IV SEE COMMENTS. Last administered on 12/13/19at 12:40; Start 12/13/19 at 10:15 Propofol 100 ml @ 1.05 mls/hr CONT PRN IV SEE I/O RECORD Last administered on 12/16/19at 05:16; Start 12/13/19 at 10:30 Propofol 100 ml @ As Directed STK-MED ONCE IV ; Start 12/13/19 at 08:48; Stop 12/13/19 at 14:11; Status DC Propofol 100 ml @ As Directed STK-MED ONCE IV ; Start 12/13/19 at 09:33; Stop 12/13/19 at 14:12; Status DC Norepinephrine Bitartrate 8 mg/ Dextrose 258 ml @ 13.545 mls/ hr CONT PRN IV PER PROTOCOL Last administered on 12/23/19at 21:31; Start 12/13/19 at 15:30 Vancomycin HCl (Vancomycin Random Level) 1 each 1X ONCE MC Last administered on 12/14/19at 04:52; Start 12/14/19 at 05:00; Stop 12/14/19 at 05:01; Status DC Vancomycin HCl 1 gm/Sodium Chloride 250 ml @ 250 mls/hr Q48H IV Last administered on 12/16/19at 10:42; Start 12/14/19 at 09:00; Stop 12/16/19 at 12:01; Status DC Vancomycin HCl (Vancomycin Trough Level) 1 each 1X ONCE MC Last administered on 12/16/19at 08:30; Start 12/16/19 at 08:30; Stop 12/16/19 at 08:31; Status DC Vecuronium [place] (Norcuron Bolus) 10 mg STK-MED ONCE IV ; Start 12/14/19 at 12:43; Stop 12/14/19 at 12:43; Status DC Vecuronium [place] (Norcuron Bolus) 6 mg 1X ONCE IV Last administered on 12/14/19at 12:55; Start 12/14/19 at 12:45; Stop 12/14/19 at 12:52; Status DC Azithromycin 250 mg/Sodium Chloride 250 ml @ 250 mls/hr Q24H IV Last administered on 12/19/19at 09:32; Start 12/15/19 at 10:00; Stop 12/19/19 at 14:25; Status DC Vecuronium [place] (Norcuron Bolus) 10 mg STK-MED ONCE IV ; Start 12/16/19 at 10 :45; Stop 12/16/19 at 10:45; Status DC Vecuronium [place] (Norcuron Bolus) 6 mg 1X ONCE IV ; Start 12/16/19 at 11:15; Stop 12/16/19 at 11:16; Status DC Vancomycin HCl 1 gm/Sodium Chloride 250 ml @ 250 mls/hr Q36H IV Last administered on 12/19/19at 11:39; Start 12/17/19 at 23:00; Stop 12/19/19 at 14:25; Status DC Midazolam HCl 50 mg/Sodium Chloride 50 ml @ 1 mls/hr CONT PRN IV SEE I/O RECORD; Start 12/16/19 at 12:15; Stop 12/16/19 at 12:10; Status DC Midazolam HCl 100 mg/Sodium Chloride 100 ml @ 1 mls/hr CONT PRN IV SEE I/O RECORD Last administered on 12/24/19at 09:41; Start 12/16/19 at 12:15 Vancomycin HCl (Vancomycin Trough Level) 1 each 1X ONCE MC Last administered on 12/19/19at 09:47; Start 12/19/19 at 10:30; Stop 12/19/19 at 10:31; Status DC Info (Tpn Per Pharmacy) 1 each PRN DAILY PRN MC SEE COMMENTS Last administered on 12/24/19at 12:36; Start 12/16/19 at 13:00 Sodium Acetate 60 meq/Potassium Chloride 20 meq/ Potassium Phosphate 10 mmol/ Magnesium Sulfate 10 meq/Calcium Gluconate 10 meq/ Multivitamins 10 ml/Chromium/ Copper/Manganese/ Seleni/Zn 0.5 ml/ Total Parenteral Nutrition/Amino Acids/Dextrose 1,200 ml @ 50 mls/hr TPN CONT IV Last administered on 12/16/19at 22:24; Start 12/16/19 at 22:00; Stop 12/17/19 at 21:59; Status DC Pantoprazole Sodium (PROTONIX VIAL for IV PUSH) 40 mg DAILYAC IVP Last administered on 12/21/19at 09:56; Start 12/17/19 at 09:00; Stop 12/21/19 at 11:07; Status DC Vecuronium [place] (Norcuron Bolus) 6 mg Q4HRS PRN IV VENT ASYNCHRONY Last administered on 12/17/19at 11:46; Start 12/17/19 at 08:45 Sodium Bicarbonate (Sodium Bicarb Adult 8.4% Syr) 50 meq 1X ONCE IV Last administered on 12/17/19at 09:31; Start 12/17/19 at 08:45; Stop 12/17/19 at 08:47; Status DC Sodium Bicarbonate 50 meq/Sodium Chloride 1,050 ml @ 100 mls/hr [id number] IV Last administered on 12/20/19at 18:49; Start 12/17/19 at 12:30; Stop 12/21/19 at 08:00; Status DC Sodium Acetate 60 meq/Potassium Chloride 20 meq/ Potassium Phosphate 10 mmol/ Magnesium Sulfate 10 meq/Calcium Gluconate 10 meq/ Multivitamins 10 ml/Chromium/ Copper/Manganese/ Seleni/Zn 0.5 ml/ Total Parenteral Nutrition/Amino Acids/Dextrose/ Fat Emulsion Intravenous 1,200 ml @ 50 mls/hr TPN CONT IV Last administered on 12/17/19at 23:00; Start 12/17/19 at 22:00; Stop 12/18/19 at 21:59; Status DC Ascorbic Acid (Vitamin C) 500 mg DAILY PO Last administered on 12/21/19 09:57; Start 12/17/19 at 15:00; Stop 12/21/19 at 11:07; Status DC Zinc Sulfate (Orazinc) 220 mg DAILY PO Last administered on 12/21/19 09:57; Start 12/17/19 at 15:00; Stop 12/21/19 at 11:07; Status DC Metoclopramide HCl (Reglan Vial) 10 mg PRN Q6HRS PRN IVP NAUSEA/VOMITING; Start 12/18/19 at 09:15; Stop 12/18/19 at 09:06; Status DC Ondansetron HCl (Zofran) 4 mg PRN Q6HRS PRN IVP NAUSEA/VOMITING Last administered on 12/18/19at 09:55; Start 12/18/19 at 09:15 Sodium Chloride 500 ml @ 500 mls/hr 1X ONCE IV Last administered on 12/18/19at 09:15; Start 12/18/19 at 09:15; Stop 12/18/19 at 10:14; Status DC Metoclopramide HCl (Reglan Vial) 5 mg PRN Q6HRS PRN IVP NAUSEA/VOMITING, 2ND CHOICE Last administered on 12/18/19at 09:55; Start 12/18/19 at 09:15 Sodium Acetate 60 meq/Potassium Chloride 10 meq/ Potassium Phosphate 10 mmol/ C alcium Gluconate 5 meq/ Multivitamins 10 ml/Chromium/ Copper/Manganese/ Seleni/Zn 0.5 ml/ Total Parenteral Nutrition/Amino Acids/Dextrose/ Fat Emulsion Intravenous 1,200 ml @ 50 mls/hr TPN CONT IV Last administered on 12/18/19at 22:25; Start 12/18/19 at 22:00; Stop 12/19/19 at 21:59; Status DC Hydroxychloroquine Sulfate (Plaquenil) 200 mg BID PO Last administered on 12/18/19at 22:23; Start 12/18/19 at 11:00; Stop 12/18/19 at 21:01; Status DC Darbepoetin [place] (ARANESP for DIALYSIS PTS) 60 mcg [id number] SQ Last administered on 12/19/19at 21:20; Start 12/19/19 at 21:00 Piperacillin Sod/ Tazobactam Sod 2.25 gm/Sodium Chloride 50 ml @ 100 mls/hr Q6HRS IV Last administered on 12/24/19at 13:20; Start 12/19/19 at 18:00 Sodium Acetate 60 meq/Potassium Chloride 10 meq/ Potassium Phosphate 10 mmol/ Calcium Gluconate 5 meq/ Multivitamins 10 ml/Chromium/ Copper/Manganese/ Seleni/Zn 0.5 ml/ Total Parenteral Nutrition/Amino Acids/Dextrose/ Fat Emulsion Intravenous 1,200 ml @ 50 mls/hr TPN CONT IV Last administered on 12/19/19 21:20; Start 12/19/19 at 22:00; Stop 12/20/19 at 21:59; Status DC Linezolid/Dextrose 300 ml @ 300 mls/hr Q12HR IV Last administered on 12/24/19at 09:44; Start 12/19/19 at 21:00 Sodium Acetate 60 meq/Potassium Chloride 10 meq/ Potassium Phosphate 10 mmol/ Calcium Gluconate 5 meq/ Multivitamins 10 ml/Chromium/ Copper/Manganese/ Seleni/Zn 0.5 ml/ Total Parenteral Nutrition/Amino Acids/Dextrose/ Fat Emulsion Intravenous 1,200 ml @ 50 mls/hr TPN CONT IV Last administered on 12/20/19at 21:32; Start 12/20/19 at 22:00; Stop 12/21/19 at 21:59; Status DC Insulin Glargine (Lantus Syringe) 20 unit QHS SQ ; Start 12/20/19 at 17:00; Status Cancel Insulin Human Lispro (HumaLOG) 0-5 UNITS Q6HRS SQ Last administered on 12/24/19at 06:01; Start 12/20/19 at 18:00 Dextrose (Dextrose 50%-Water Syringe) 12.5 gm PRN Q15MIN PRN IV SEE COMMENTS; Start 12/20/19 at 16:45; Status Cancel Insulin Glargine (Lantus Syringe) 20 unit DAILY@1800 SQ Last administered on 12/20/19at 17:36; Start 12/20/19 at 18:00; Stop 12/21/19 at 11:07; Status DC Dextrose (Dextrose 50%-Water Syringe) 12.5 gm PRN Q15MIN PRN IV SEE COMMENTS; Start 12/20/19 at 17:15; Status UNV Insulin Glargine (Lantus Syringe) 24 unit DAILY@1800 SQ Last administered on 12/23/19at 20:06; Start 12/21/19 at 18:00 Sodium Acetate 60 meq/Potassium Chloride 10 meq/ Potassium Phosphate 10 mmol/ Calcium Gluconate 5 meq/ Multivitamins 10 ml/Chromium/ Copper/Manganese/ Selen i/Zn 0.5 ml/ Total Parenteral Nutrition/Amino Acids/Dextrose/ Fat Emulsion Intravenous 1,200 ml @ 50 mls/hr TPN CONT IV Last administered on 12/21/19at 21:27; Start 12/21/19 at 22:00; Stop 12/22/19 at 21:59; Status DC Furosemide 100 mg/ Sodium Chloride 100 ml @ 5 mls/hr Q20H IV Last administered on 12/22/19at 08:58; Start 12/21/19 at 15:00; Stop 12/23/19 at 08:52; Status DC Sodium Bicarbonate (Sodium Bicarb Adult 8.4% Syr) 50 meq Q2HR IV Last administered on 12/21/19at 16:57; Start 12/21/19 at 16:00; Stop 12/21/19 at 18:01; Status DC Calcium Chloride 2000 mg/Sodium Chloride 120 ml @ 240 mls/hr 1X ONCE IV Last administered on 12/21/19at 15:48; Start 12/21/19 at 15:15; Stop 12/21/19 at 15:44; Status DC Albumin Human 100 ml @ 100 mls/hr PRN Q8HRS PRN IV for MAP Less than 65; Start 12/21/19 at 15:15 Heparin Sodium (Porcine) (Heparin Sodium) 5,000 unit Q12H SQ Last administered on 12/23/19at 21:42; Start 12/22/19 at 09:00 Heparin Sodium (Porcine) (Heparin Sodium) 5,000 unit Q12HR SQ ; Start 12/22/19 at 21:00; Status Cancel Sodium Acetate 60 meq/Potassium Phosphate 10 mmol/ Multivitamins 10 ml/Chromium/ Copper/Manganese/ Seleni/Zn 0.5 ml/ Total Parenteral Nutrition/Amino Acids/Dextrose/ Fat Emulsion Intravenous 1,200 ml @ 50 mls/hr TPN CONT IV Last administered on 12/22/19at 21:05; Start 12/22/19 at 22:00; Stop 12/23/19 at 21:59; Status DC Sodium Bicarbonate (Sodium Bicarb Adult 8.4% Syr) 100 meq 1X ONCE IV Last administered on 12/23/19at 09:37; Start 12/23/19 at 08:45; Stop 12/23/19 at 08:46; Status DC Sodium Acetate 60 meq/Potassium Phosphate 10 mmol/ Multivitamins 10 ml/Chromium/ Copper/Manganese/ Seleni/Zn 0.5 ml/ Total Parenteral Nutrition/Amino Acids/Dextrose/ Fat Emulsion Intravenous 1,056 ml @ 44 mls/hr TPN CONT IV Last administered on 12/23/19at 21:43; Start 12/23/19 at 22:00; Stop 12/24/19 at 21:59 Sodium Acetate 80 meq/Multivitamins 10 ml/Chromium/ Copper/Manganese/ Seleni/Zn 0.5 ml/ Total Parenteral Nutrition/Amino Acids/Dextrose/ Fat Emulsion Intravenous 1,056 ml @ 44 mls/hr TPN CONT IV ; Start 12/24/19 at 22:00; Stop 12/25/19 at 21:59 Active Scripts Active Reported Carbidopa-Levodopa 25-100 Tab (Carbidopa/Levodopa) 1 Each Tablet 50-200 PO TID Fluticasone Propionate Nasal [place] (Fluticasone Propionate) 16 Gm [place].susp 2 [place] NS DAILY last dos this am next dose tomorrow am (monday) Glipizide 5 Mg Tablet 5 Mg PO DAILYWSUP last dose last night next dose tonight with supper Glipizide 5 Mg Tablet 2.5 Mg PO DAILY last dose this am (next dose tomorrow am monday) Loratadine 10 Mg Tablet 10 Mg PO last dose this am next dose tomorrow am(monday) Omeprazole 20 Mg Capsule.dr 20 Mg PO DAILY last dose this am next dose tomorrow am (monday) Ferrous Sulfate 325 Mg Tablet 1 Tab PO DAILY last dose this am next dose tonight Amlodipine-Benazepril 5-10 Mg (Amlodipine Besylate/Benazepril) 1 Each Capsule 1 Cap PO DAILY last dos this am next dose tomorrow am (monday) Tamsulosin Hcl 0.4 Mg Cap.er.24h 1 Cap PO DAILY last dose this am next dose tomorrow am (monday) Simvastatin 20 Mg Tablet 1 Tab PO QHS last dose last evening next dose tonight Hydrochlorothiazide Tablet (Hydrochlorothiazide) 25 Mg Tablet 1 Tab PO DAILY last dos this am next dose tomorrow am (monday) Allopurinol 100 Mg Tablet 1 Tab PO DAILY last dose this am next dose tomorrow on monday Levothyroxine Sodium 50 Mcg Tablet 1 Tab PO DAILY last dose this am next dose tomorrow am (monday) Vitals/I & O Vital Sign - Last 24 Hours 4/6/20 4/6/20 4/6/20 4/6/20 14:00 15:00 15:50 16:00 Temp 98.3 98.3 Pulse 47 47 Resp 20 B/P (MAP) 100/47 (64) 90/42 (58) Pulse Ox 94 94 90 O2 Delivery Ventilator Mechanical Ventilator O2 Flow Rate 15.0 15.0 12/23/19 12/23/19 12/23/19 12/23/19 16:00 17:00 18:00 18:37 Temp 98.6 98.6 Pulse 47 40 42 Resp 20 20 B/P (MAP) 90/41 (57) 93/40 (57) 96/42 (60) Pulse Ox 90 93 94 94 O2 Delivery Ventilator Ventilator O2 Flow Rate 15.0 15.0 12/23/19 12/23/19 12/23/19 12/23/19 19:00 19:07 20:00 20:00 Temp 98.3 98.3 Pulse 40 42 Resp 20 20 B/P (MAP) 98/51 (67) 85/44 (58) Pulse Ox 96 94 95 O2 Delivery Ventilator Mechanical Ventilator Ventilator O2 Flow Rate 15.0 12/23/19 12/23/19 12/23/19 12/23/19 20:54 21:00 21:30 21:45 Pulse 40 70 40 Resp 20 20 20 B/P (MAP) 82/46 (58) 75/43 (54) 80/47 (58) Pulse Ox 95 96 95 97 O2 Delivery Ventilator Ventilator Ventilator Ventilator 12/23/19 12/23/19 12/24/19 12/24/19 22:00 23:00 00:00 00:00 Temp 98.2 98.2 Pulse 42 42 44 Resp 20 20 20 B/P (MAP) 111/54 (73) 118/48 (71) 113/47 (69) Pulse Ox 97 92 94 O2 Delivery Ventilator Ventilator Ventilator Mechanical Ventilator 12/24/19 12/24/19 12/24/19 12/24/19 00:29 01:00 02:00 03:00 Pulse 42 40 40 Resp 20 20 20 B/P (MAP) 125/53 (77) 123/52 (75) 107/46 (66) Pulse Ox 95 94 95 93 O2 Delivery Ventilator Ventilator Ventilator Ventilator 12/24/19 12/24/19 12/24/19 12/24/19 03:45 04:00 04:00 05:00 Temp 98.7 98.7 Pulse 40 43 Resp 20 20 B/P (MAP) 113/48 (69) 114/47 (69) Pulse Ox 92 94 90 O2 Delivery Ventilator Mechanical Ventilator Ventilator Ventilator 12/24/19 12/24/19 12/24/19 12/24/19 06:00 08:00 08:24 08:35 Pulse 44 46 Resp 20 B/P (MAP) 125/50 (75) 130/60 Pulse Ox 93 97 O2 Delivery Ventilator Mechanical Ventilator Ventilator O2 Flow Rate 15.0 12/24/19 12/24/19 12/24/19 09:43 12:00 12:15 Resp 24 Pulse Ox 93 O2 Delivery Ventilator Mechanical Ventilator Ventilator O2 Flow Rate 15.0 Intake and Output 12/23/19 12/23/19 12/24/19 15:00 23:00 07:00 Intake Total 211 ml 1213 ml 678.0 ml Output Total 0 ml 155 ml 5 ml Balance 211 ml 1058 ml 673.0 ml Nutrition Consultation Dietary Evaluation: Recommendations by RD: Dietary education by RD, Increase Calorie Intake, PPN/TPN Comments: Continue w/TPN per current order: 225 g dextrose, 85 g AA, 20 g lipids Asked RN (Stacey) about possibly starting TFs - RN report pt's gut function still altered, not appropriate for TFs at this time. Expected Outcomes/Goals: New goal 12/16: Nutrition support to meet >65% estimated nutrition needs while pt remains intubated - met, goal ongoing Interpretation of weight loss: >5% in 1 month Malnutrition Findings: Food and Nutrition Intake (Sev: <50% est energy req 5days Weight Status: Appropriate DANTE CAGE MD Dec 24, 2019 13:52
[2019-12-24] MEDS: HEPARIN for SUB-Q USE 5,000 UNIT/ML VIAL. SQ SCH ×2 (14:31→21:28)
--- NOTE | 2019-12-24 16:08 | PDOC ---
PULMONARY PROGRESS NOTES Subjective Pt intubated/ sedated on PC mode, 80%FIO2/10 of PEEP Sedated Vitals Vital Signs Date Time Temp Pulse Resp B/P (MAP) Pulse Ox O2 Delivery O2 Flow Rate FiO2 12/24/19 12:15 93 Ventilator 12/24/19 12:00 15.0 12/24/19 09:43 24 12/24/19 08:24 46 130/60 12/24/19 04:00 98.7 98.7 Lungs: Crackles Cardiovascular: S1 Abdomen: Soft Extremities: Other (edema) Skin: Warm Labs Laboratory Tests Test 12/22/19 17:21 12/22/19 23:43 12/23/19 06:00 12/23/19 06:14 Glucose (Fingerstick) 160 mg/dL (70-99) 197 mg/dL (70-99) 201 mg/dL (70-99) Sodium Level 133 mmol/L (136-145) Potassium Level 4.5 mmol/L (3.5-5.1) Chloride Level 98 mmol/L (98-107) Carbon Dioxide Level 20 mmol/L (21-32) Anion Gap 15 (6-14) Blood Urea Nitrogen 102 mg/dL (8-26) Creatinine 6.2 mg/dL (0.7-1.3) Estimated GFR (Cockcroft-Gault) 10.4 BUN/Creatinine Ratio 16 (6-20) Glucose Level 210 mg/dL (70-99) Calcium Level 8.0 mg/dL (8.5-10.1) Phosphorus Level 5.4 mg/dL (2.6-4.7) Magnesium Level 2.4 mg/dL (1.8-2.4) Total Bilirubin 4.6 mg/dL (0.2-1.0) Aspartate Amino Transf (AST/SGOT) 47 U/L (15-37) Alanine Aminotransferase (ALT/SGPT) 7 U/L (16-63) Alkaline Phosphatase 46 U/L (46-116) Total Protein 5.7 g/dL (6.4-8.2) Albumin 1.0 g/dL (3.4-5.0) Albumin/Globulin Ratio 0.2 (1.0-1.7) Test 12/23/19 08:30 12/23/19 11:30 12/23/19 17:07 12/23/19 23:58 O2 Saturation 47 % (92-99) Arterial Blood pH 7.24 (7.35-7.45) Arterial Blood pCO2 at Patient Temp 46 mmHg (35-46) Arterial Blood pO2 at Patient Temp < 42 mmHg (65-108) Arterial Blood HCO3 19 mmol/L (21-28) Arterial Blood Base Excess -8 mmol/L (-3-3) FiO2 70 Glucose (Fingerstick) 228 mg/dL (70-99) 205 mg/dL (70-99) 243 mg/dL (70-99) Test 12/24/19 06:08 12/24/19 08:00 Sodium Level 130 mmol/L (136-145) Potassium Level 4.6 mmol/L (3.5-5.1) Chloride Level 94 mmol/L (98-107) Carbon Dioxide Level 19 mmol/L (21-32) Anion Gap 17 (6-14) Blood Urea Nitrogen 118 mg/dL (8-26) Creatinine 7.0 mg/dL (0.7-1.3) Estimated GFR (Cockcroft-Gault) 9.1 Glucose Level 237 mg/dL (70-99) Calcium Level 7.9 mg/dL (8.5-10.1) Phosphorus Level 6.3 mg/dL (2.6-4.7) O2 Saturation 93 % (92-99) Arterial Blood pH 7.26 (7.35-7.45) Arterial Blood pCO2 at Patient Temp 38 mmHg (35-46) Arterial Blood pO2 at Patient Temp 76 mmHg (65-108) Arterial Blood HCO3 17 mmol/L (21-28) Arterial Blood Base Excess -10 mmol/L (-3-3) FiO2 70 Laboratory Tests Test 12/23/19 17:07 12/23/19 23:58 12/24/19 06:08 12/24/19 08:00 Glucose (Fingerstick) 205 mg/dL (70-99) 243 mg/dL (70-99) Sodium Level 130 mmol/L (136-145) Potassium Level 4.6 mmol/L (3.5-5.1) Chloride Level 94 mmol/L (98-107) Carbon Dioxide Level 19 mmol/L (21-32) Anion Gap 17 (6-14) Blood Urea Nitrogen 118 mg/dL (8-26) Creatinine 7.0 mg/dL (0.7-1.3) Estimated GFR (Cockcroft-Gault) 9.1 Glucose Level 237 mg/dL (70-99) Calcium Level 7.9 mg/dL (8.5-10.1) Phosphorus Level 6.3 mg/dL (2.6-4.7) O2 Saturation 93 % (92-99) Arterial Blood pH 7.26 (7.35-7.45) Arterial Blood pCO2 at Patient Temp 38 mmHg (35-46) Arterial Blood pO2 at Patient Temp 76 mmHg (65-108) Arterial Blood HCO3 17 mmol/L (21-28) Arterial Blood Base Excess -10 mmol/L (-3-3) FiO2 70 Medications Active Scripts Medications Dose Route/Sig Max Daily Dose Days Date Category Dose Instructions Warfarin Sodium 3 Mg Tablet 1 Tab PO 1X 09/28/17 Reported Fluticasone Propionate Nasal [place] (Fluticasone Propionate) 16 Gm [place].susp 2 [place] NS DAILY 09/25/17 Reported last dos this am next dose tomorrow am (monday) Lubricant Eye Drops (Propylene Glycol) 10 Ml Drops 10 Ml OP [id number] 09/25/17 Reported last dose after lunch next dose with supper/ bedtime Lubricant Eye Drops (Carboxymethylcellulose Sodium) 1 Each Drope[place] 1 Each OP HS 09/25/17 Reported last dose last evening next dosetonight provided his own Glipizide 5 Mg Tablet 5 Mg PO DAILYWSUP 07/12/16 Reported last dose last night next dose tonight with supper Glipizide 5 Mg Tablet 2.5 Mg PO DAILY 07/12/16 Reported last dose this am (next dose tomorrow am monday) Loratadine 10 Mg Tablet 10 Mg PO 06/27/16 Reported last dose this am next dose tomorrow am(monday) Omeprazole 20 Mg Capsule.dr 20 Mg PO DAILY 06/27/16 Reported last dose this am next dose tomorrow am (monday) Ferrous Sulfate 325 Mg Tablet 1 Tab PO DAILY 06/27/16 Reported last dose this am next dose tonight Aspir 81 (Aspirin) 81 Mg Tablet.dr 81 Mg PO DAILY 06/27/16 Reported Amlodipine-Benazepril 5-10 Mg (Amlodipine Besylate/Benazepril) 1 Each Capsule 1 Cap PO DAILY 06/27/16 Reported last dos this am next dose tomorrow am (monday) Tamsulosin Hcl 0.4 Mg Cap.er.24h 1 Cap PO DAILY 10/06/14 Reported last dose this am next dose tomorrow am (monday) Simvastatin 20 Mg Tablet 1 Tab PO QHS 10/06/14 Reported last dose last evening next dose tonight Hydrochlorothiazide Tablet (Hydrochlorothiazide) 25 Mg Tablet 1 Tab PO DAILY 10/06/14 Reported last dos this am next dose tomorrow am (monday) Allopurinol 100 Mg Tablet 1 Tab PO DAILY 10/06/14 Reported last dose this am next dose tomorrow on monday Levothyroxine Sodium 50 Mcg Tablet 1 Tab PO DAILY 10/06/14 Reported last dose this am next dose tomorrow am (monday) Comments CXR 12/22 diffuse interstitial infiltrates bilateral, slightly better Impression . This is an 84-year-old, who presents with comorbidities including debility, diabetes, and chronic kidney disease on top of acute kidney disease with abnormal chest x-ray/ hypoxia/ RF 1. Acute respiratory failure secondary ARDS, worsening hypoxia and resp acidosis 2. Pneumonia, COVID-19 positive test (U07.1, COVID-19) with Acute Pneumonia (J12.89, Other viral pneumonia) (If respiratory failure or sepsis present, add as separate assessment) 3. diabetes 4. Abnormal chest x-ray, suspect superimposed bacterial pneumonia (gram-negative gram-positive), underlying viral pneumonia 5. Septic shock, off levoped 6. Protein malnutrition present upon admission 7. Acute kidney injury,worse 8. Metabolic acidosis due to BIA 9. Severe PCM Labs reviewed, chest x-ray reviewed Plan . Continue pressure control ventilation, patient not improving, will discuss case with family, possible withdrawal of care I spoke, with the Nayeli. She will let us know, she is going to talk to other family members PRN paralytics sedation Prone positioning per protocol. Follow CXR and Labs s/p -hydroxychloroquine, Zithromax ( dc'd at day 5) Continue vancomycin and Zosyn DVT GI prophylaxis Nutritional support with TPN worsening renal function, follow renal rec.not a candidate for hemodialysis The above was discussed with RN and RT Total cumulative critical care time of 30 minutes reviewing data, labs, chest x-ray, and managing vent prognosis guarded/ DNR VISHNU CRUZ MD Dec 24, 2019 16:08
[2019-12-24] MEDS: NOREPINEPHRINE VIAL 8 MG in IV DEXTROSE 5% 250 ML IV PRN (21:36)
[2019-12-24] MEDS ORDERED: AMINO ACID IV SCH ×6 (22:00)
[2019-12-24] MEDS ORDERED: DEXTROSE 70% IV SCH ×6 (22:00)
[2019-12-24] MEDS ORDERED: TOTAL PARENTERAL NUTRITION IV SCH ×6 (22:00)
[2019-12-24] MEDS ORDERED: [UNRECOGNIZED DRUG - OTHER] IV SCH ×6 (22:00)
[2019-12-24] MEDS: INSULIN GLARGINE SYRINGE. SQ SCH (22:31)
[2019-12-25] VITALS (16 sets, daily range): BP systolic 0–141; BP diastolic 0–65
[2019-12-25] MEDS: INSULIN LISPRO 300 UNITS/3 ML VIAL. SQ SCH ×3 (00:02→15:26)
[2019-12-25] MEDS: PIPERACILLIN/TAZOBACTAM 2.25 GM in IV NORMAL SALINE 50ML 50 ML IV SCH ×2 (05:12→14:47)
--- NOTE | 2019-12-25 05:43 | RAD ---
EXAM: CHEST ONE VIEW. HISTORY: Respiratory failure. COMPARISON: 12/23/2019. FINDINGS: A frontal view of the chest is obtained. An endotracheal tube has its tip 3 cm above the renzo. A left arm PICC line has its tip in the superior cavoatrial junction. There is a small left pleural effusion. Bibasilar infiltrates are stable. There is no pneumothorax. The heart is mildly enlarged. IMPRESSION: 1. Stable bibasilar infiltrates. Small left pleural effusion. Electronically signed by: Neil Mayo MD (12/25/2019 5:40 AM) [facility]
[2019-12-25 06:10] LABS: CALCIUM 7.9 mg/dL (8.5-10.1); CREATININE 7.6 mg/dL (0.7-1.3); GFR 8.3
[2019-12-25] MEDS: amLODIPine BESYLATE 5 MG TABLET PO SCH (09:00)
[2019-12-25] MEDS: MIDAZOLAM HCL 100 MG in IV NORMAL SALINE 100ML 100 ML IV PRN (09:09)
[2019-12-25] MEDS: CARBIDOPA/LEVODOPA 25/100MG TABLET PO SCH (09:10)
[2019-12-25] MEDS: ASPIRIN ENTERIC COATED 81 MG TABLET.DR. PO SCH (09:10)
[2019-12-25] MEDS: FERROUS SULFATE 325 MG TABLET. PO SCH (09:10)
[2019-12-25 09:51] LABS: BASE EXCESS ABG -11 mmol/L (-3-3); HCO3 ABG 15 mmol/L (21-28); PCO2 ABG 33 mmHg (35-46); PO2 ABG 85 mmHg (65-108); SAT O2 ABG 94 % (92-99)
[2019-12-25 09:55] LABS: FIO2 ABG 70
--- NOTE | 2019-12-25 10:39 | PDOC ---
SUBJECTIVE ROS Intubated, sedated OBJECTIVE Vital Signs Vital Signs Date Time Temp Pulse Resp B/P (MAP) Pulse Ox O2 Delivery O2 Flow Rate FiO2 12/25/19 09:00 34 90/60 12/25/19 08:28 20 Ventilator 12/25/19 08:00 15.0 12/25/19 06:00 96 12/25/19 00:00 94.3 94.3 I & 0 Intake and Output 12/25/19 07:00 Intake Total 2288 ml Output Total 20 ml Balance 2268 ml IV Total 2288 ml Output Urine Total 20 ml PHYSICAL EXAM Physical Exam Visually GEN- Intubated, sedated Respiratory: ventilator Heart: S1S2 per the monitor Extremities: Edematous Neurology: other (SEDATED) IVONNE Agosto + DIAGNOSIS/ASSESSMENT Assessment & Plan BIA-most likely associated with ATN and generalized illness associated with COVID-19. Worsening renal function, Poor Candidate for HD as has been previously documented by Pulm/Renal Anuric, No significant response with Lasix -dced 12/22 Multiple comorbidities, ongoing potentially terminal illness, is felt by all involved, that the patient was not significantly benefit from dialysis. HypoNatremia CKD STAGE 3 WITH BASELINE CR OF 2.0. ACUTE RESP FAILURE-ARDS - s/p -hydroxychloroquine, Zithromax ( dc'd at day 5) COVID - 19 PNEUMONIA: Lymphocytopenia: Poor prognosis ThromboCytopenia: Appears to be associated with underlying illness DNR COMMENT/RELEVANT DATA Meds Current Medications Medications (Trade) Dose Ordered Sig/Aga Start Time Stop Time Status Last Admin Dose Admin Acetaminophen (Tylenol Supp) 650 mg PRN Q6HRS PRN 12/12/19 07:45 12/15/19 17:55 650 MG Acetaminophen (Tylenol) 1,000 mg PRN Q6HRS PRN 12/09/19 15:30 12/09/19 18:00 DC Albumin Human 100 ml @ 100 mls/hr PRN Q8HRS PRN 12/21/19 15:15 Allopurinol (Zyloprim) 100 mg DAILY 12/10/19 17:00 12/22/19 08:05 DC 12/21/19 10:02 100 MG Amino Acids/ Glycerin/ Electrolytes 1,000 ml @ 50 mls/hr Q20H 12/12/19 10:15 12/16/19 21:59 DC 12/15/19 21:47 50 MLS/HR Amlodipine Besylate (Norvasc) 5 mg DAILY 12/10/19 17:00 12/24/19 08:24 5 MG Artificial Tears (Artificial Tears) 1 drop [id number] 12/10/19 17:00 12/10/19 16:44 DC Ascorbic Acid (Vitamin C) 500 mg DAILY 12/17/19 15:00 12/21/19 11:07 DC 12/21/19 09:57 500 MG Aspirin (Ecotrin) 81 mg DAILY 12/10/19 17:00 12/25/19 09:10 81 MG Azithromycin 250 ml @ 250 mls/hr 1X ONCE 12/10/19 16:30 12/10/19 17:29 UNV Azithromycin 250 mg/Sodium Chloride 250 ml @ 250 mls/hr Q24H 12/15/19 10:00 12/19/19 14:25 DC 12/19/19 09:32 250 MLS/HR Azithromycin 500 mg/Sodium Chloride 250 ml @ 250 mls/hr Q24H 12/10/19 18:00 12/13/19 11:18 DC 12/12/19 17:21 250 MLS/HR Calcium Chloride 2000 mg/Sodium Chloride 120 ml @ 240 mls/hr 1X ONCE 12/21/19 15:15 12/21/19 15:44 DC 12/21/19 15:48 240 MLS/HR Carbidopa/Levodopa (Sinemet 25/100) 2 tab TID 12/10/19 17:00 12/25/19 09:10 2 TAB Ceftriaxone Sodium (Rocephin) 1 gm Q24H 12/10/19 18:00 12/13/19 09:07 DC 12/12/19 17:24 1 GM Cetirizine HCl (ZyrTEC) 10 mg DAILY 12/10/19 17:00 12/21/19 11:07 DC 12/21/19 09:57 10 MG Chlorhexidine Gluconate (Peridex) 15 ml BID 12/13/19 21:00 12/23/19 09:52 DC 12/23/19 08:36 15 ML Darbepoetin Devin (ARANESP for DIALYSIS PTS) 60 mcg [id number] 12/19/19 21:00 12/19/19 21:20 60 MCG Dextrose (Dextrose 50%-Water Syringe) 12.5 gm PRN Q15MIN PRN 12/20/19 17:15 UNV Enoxaparin Sodium (Lovenox 30mg Syringe) 30 mg Q24H 12/12/19 12:00 12/22/19 09:31 DC 12/21/19 12:42 30 MG Fentanyl Citrate 30 ml @ 2.5 mls/hr CONT PRN 12/13/19 10:15 12/25/19 08:28 2.5 MLS/HR Ferrous Sulfate (Feosol) 325 mg DAILY08 12/10/19 17:00 12/25/19 09:10 325 MG Fluticasone Propionate (Flonase) 2 spray DAILY 12/11/19 09:00 12/21/19 11:07 DC 12/16/19 09:00 2 SPRAY Furosemide 100 mg/ Sodium Chloride 100 ml @ 5 mls/hr Q20H 12/21/19 15:00 12/23/19 08:52 DC 12/22/19 08:58 5 MLS/HR Glipizide (Glucotrol) 5 mg DAILYWSUP 12/10/19 17:00 12/11/19 08:03 DC 12/10/19 17:18 5 MG Heparin Sodium (Porcine) (Heparin Sodium) 5,000 unit Q12HR 12/22/19 21:00 Cancel Hydrochlorothiazide (Hydrodiuril) 25 mg DAILY 12/10/19 17:00 12/16/19 12:52 DC 12/16/19 09:04 25 MG Hydroxychloroquine Sulfate (Plaquenil) 200 mg BID 12/18/19 11:00 12/18/19 21:01 DC 12/18/19 22:23 200 MG Info (Tpn Per Pharmacy) 1 each PRN DAILY PRN 12/16/19 13:00 12/24/19 12:36 1 EACH Insulin Glargine (Lantus Syringe) 24 unit DAILY@1800 12/21/19 18:00 12/24/19 22:31 24 UNIT Insulin Human Lispro (HumaLOG) 0-5 UNITS Q6HRS 12/20/19 18:00 12/25/19 05:33 5 UNITS Lactobacillus Rhamnosus (Culturelle) 1 cap BID 12/11/19 21:00 12/15/19 08:34 DC 12/14/19 20:48 1 CAP Levothyroxine Sodium (Synthroid) 50 mcg DAILY06 12/11/19 06:00 12/21/19 11:07 DC 12/21/19 05:50 50 MCG Linezolid/Dextrose 300 ml @ 300 mls/hr Q12HR 12/19/19 21:00 12/25/19 08:10 300 MLS/HR Lisinopril (Prinivil) 10 mg DAILY 12/10/19 17:00 12/18/19 11:12 DC 12/18/19 10:03 10 MG Metoclopramide HCl (Reglan Vial) 5 mg PRN Q6HRS PRN 12/18/19 09:15 12/18/19 09:55 5 MG Midazolam HCl 100 mg/Sodium Chloride 100 ml @ 1 mls/hr CONT PRN 12/16/19 12:15 12/25/19 09:09 10 MLS/HR Midazolam HCl 50 mg/Sodium Chloride 50 ml @ 1 mls/hr CONT PRN 12/16/19 12:15 12/16/19 12:10 DC Morphine Sulfate (Morphine Sulfate) 4 mg PRN Q1HR PRN 12/13/19 10:15 12/13/19 12:40 4 MG Non-Formulary Medication (Carboxymethylcellulose Sodium (Lubricant Eye Drops)) 1 each HS 12/10/19 21:00 UNV Norepinephrine Bitartrate 8 mg/ Dextrose 258 ml @ 13.545 mls/ hr CONT PRN 12/13/19 15:30 12/24/19 21:36 6.773 MLS/HR Ondansetron HCl (Zofran) 4 mg PRN Q6HRS PRN 12/18/19 09:15 12/18/19 09:55 4 MG Pantoprazole Sodium (PROTONIX VIAL for IV PUSH) 40 mg DAILYAC 12/17/19 09:00 12/21/19 11:07 DC 12/21/19 09:56 40 MG Pantoprazole Sodium (Protonix) 40 mg DAILYAC 12/10/19 16:30 12/17/19 07:44 DC 12/16/19 09:04 40 MG Piperacillin Sod/ Tazobactam Sod 2.25 gm/Sodium Chloride 50 ml @ 100 mls/hr Q6HRS 12/19/19 18:00 12/25/19 05:12 100 MLS/HR Piperacillin Sod/ Tazobactam Sod 3.375 gm/Sodium Chloride 50 ml @ 100 mls/hr Q6HRS 12/13/19 10:00 12/19/19 12:21 DC 12/19/19 11:39 100 MLS/HR Piperacillin Sod/ Tazobactam Sod 4.5 gm/Sodium Chloride 100 ml @ 200 mls/hr Q6HRS 12/13/19 12:00 UNV Propofol 100 ml @ As Directed STK-MED ONCE 12/13/19 09:33 12/13/19 14:12 DC Simvastatin (Zocor) 20 mg QHS 12/10/19 21:00 12/13/19 11:28 DC 12/11/19 21:31 20 MG Sodium Bicarbonate 50 meq/Sodium Chloride 1,050 ml @ 100 mls/hr [id number] 12/17/19 12:30 12/21/19 08:00 DC 12/20/19 18:49 100 MLS/HR Sodium Polystyrene Sulfonate (Kayexalate) 15 gm 1X ONCE 12/09/19 13:45 12/09/19 13:46 DC 12/09/19 14:35 15 GM Sodium Acetate 60 meq/Potassium Chloride 10 meq/ Potassium Phosphate 10 mmol/ Calcium Gluconate 5 meq/ Multivitamins 10 ml/Chromium/ Copper/Manganese/ Seleni/Zn 0.5 ml/ Total Parenteral Nutrition/Amino Acids/Dextrose/ Fat Emulsion Intravenous 1,200 ml @ 50 mls/hr TPN CONT 12/21/19 22:00 12/22/19 21:59 DC 12/21/19 21:27 50 MLS/HR Sodium Acetate 60 meq/Potassium Chloride 20 meq/ Potassium Phosphate 10 mmol/ Magnesium Sulfate 10 meq/Calcium Gluconate 10 meq/ Multivitamins 10 ml/Chromium/ Copper/Manganese/ Seleni/Zn 0.5 ml/ Total Parenteral Nutrition/Amino Acids/Dextrose 1,200 ml @ 50 mls/hr TPN CONT 12/16/19 22:00 12/17/19 21:59 DC 12/16/19 22:24 50 MLS/HR Sodium Acetate 60 meq/Potassium Chloride 20 meq/ Potassium Phosphate 10 mmol/ Magnesium Sulfate 10 meq/Calcium Gluconate 10 meq/ Multivitamins 10 ml/Chromium/ Copper/Manganese/ Seleni/Zn 0.5 ml/ Total Parenteral Nutrition/Amino Acids/Dextrose/ Fat Emulsion Intravenous 1,200 ml @ 50 mls/hr TPN CONT 12/17/19 22:00 12/18/19 21:59 DC 12/17/19 23:00 50 MLS/HR Sodium Acetate 60 meq/Potassium Phosphate 10 mmol/ Multivitamins 10 ml/Chromium/ Copper/Manganese/ Seleni/Zn 0.5 ml/ Total Parenteral Nutrition/Amino Acids/Dextrose/ Fat Emulsion Intravenous 1,056 ml @ 44 mls/hr TPN CONT 12/23/19 22:00 12/24/19 21:59 DC 12/23/19 21:43 44 MLS/HR Sodium Acetate 80 meq/Multivitamins 10 ml/Chromium/ Copper/Manganese/ Seleni/Zn 0.5 ml/ Total Parenteral Nutrition/Amino Acids/Dextrose/ Fat Emulsion Intravenous 1,056 ml @ 44 mls/hr TPN CONT 12/24/19 22:00 12/25/19 21:59 12/24/19 21:36 44 MLS/HR Sodium Bicarbonate (Sodium Bicarb Adult 8.4% Syr) 100 meq 1X ONCE 12/23/19 08:45 12/23/19 08:46 DC 12/23/19 09:37 100 MEQ Sodium Chloride 500 ml @ 500 mls/hr 1X ONCE 12/18/19 09:15 12/18/19 10:14 DC 12/18/19 09:15 500 MLS/HR Tamsulosin HCl (Flomax) 0.4 mg DAILY 12/10/19 17:00 12/21/19 11:07 DC 12/21/19 09:58 0.4 MG Vancomycin HCl (Vanco Per Pharmacy) 1 each PRN DAILY PRN 12/13/19 09:00 12/19/19 14:26 DC 12/18/19 10:49 1 EACH Vancomycin HCl (Vancomycin Random Level) 1 each 1X ONCE 12/14/19 05:00 12/14/19 05:01 DC 12/14/19 04:52 1 EACH Vancomycin HCl (Vancomycin Trough Level) 1 each 1X ONCE 12/19/19 10:30 12/19/19 10:31 DC 12/19/19 09:47 1 EACH Vancomycin HCl 1.5 gm/Sodium Chloride 500 ml @ 250 mls/hr 1X ONCE 12/13/19 10:00 12/13/19 11:59 DC 12/13/19 11:11 250 MLS/HR Vancomycin HCl 1 gm/Sodium Chloride 250 ml @ 250 mls/hr Q36H 12/17/19 23:00 12/19/19 14:25 DC 12/19/19 11:39 250 MLS/HR Vecuronium [place] (Norcuron Bolus) 6 mg Q4HRS PRN 12/17/19 08:45 12/17/19 11:46 6 MG Warfarin Sodium (Coumadin Per Physician) 1 each PRN DAILY PRN 12/10/19 16:30 12/10/19 16:44 DC Warfarin Sodium (Coumadin) 3 mg 1X 12/10/19 16:00 12/10/19 16:44 DC Zinc Sulfate (Orazinc) 220 mg DAILY 12/17/19 15:00 12/21/19 11:07 DC 12/21/19 09:57 220 MG Lab Laboratory Tests Test 12/24/19 22:25 12/24/19 23:59 12/25/19 05:30 12/25/19 09:40 Glucose (Fingerstick) 306 mg/dL (70-99) 301 mg/dL (70-99) 308 mg/dL (70-99) Sodium Level 128 mmol/L (136-145) Potassium Level 5.0 mmol/L (3.5-5.1) Chloride Level 92 mmol/L (98-107) Carbon Dioxide Level 18 mmol/L (21-32) Anion Gap 18 (6-14) Blood Urea Nitrogen 130 mg/dL (8-26) Creatinine 7.6 mg/dL (0.7-1.3) Estimated GFR (Cockcroft-Gault) 8.3 Glucose Level 314 mg/dL (70-99) Calcium Level 7.9 mg/dL (8.5-10.1) O2 Saturation 94 % (92-99) Arterial Blood pH 7.28 (7.35-7.45) Arterial Blood pCO2 at Patient Temp 33 mmHg (35-46) Arterial Blood pO2 at Patient Temp 85 mmHg (65-108) Arterial Blood HCO3 15 mmol/L (21-28) Arterial Blood Base Excess -11 mmol/L (-3-3) FiO2 70 Results All relevant outside records, renal labs, imaging studies, telemetry/EKG's were reviewed. WILLA ANDREA MD Dec 25, 2019 10:39
--- NOTE | 2019-12-25 10:52 | PDOC ---
PULMONARY PROGRESS NOTES Subjective Pt intubated/ sedated on PC mode, 60 FIO2/10 of PEEP Sedated Vitals Vital Signs Date Time Temp Pulse Resp B/P (MAP) Pulse Ox O2 Delivery O2 Flow Rate FiO2 12/25/19 09:00 34 90/60 12/25/19 08:28 20 Ventilator 12/25/19 08:00 15.0 12/25/19 06:00 96 12/25/19 00:00 94.3 94.3 Lungs: Crackles Cardiovascular: S1 Abdomen: Soft Extremities: Other (edema) Skin: Warm Labs Laboratory Tests Test 12/23/19 11:30 12/23/19 17:07 12/23/19 23:58 12/24/19 06:08 Glucose (Fingerstick) 228 mg/dL (70-99) 205 mg/dL (70-99) 243 mg/dL (70-99) Sodium Level 130 mmol/L (136-145) Potassium Level 4.6 mmol/L (3.5-5.1) Chloride Level 94 mmol/L (98-107) Carbon Dioxide Level 19 mmol/L (21-32) Anion Gap 17 (6-14) Blood Urea Nitrogen 118 mg/dL (8-26) Creatinine 7.0 mg/dL (0.7-1.3) Estimated GFR (Cockcroft-Gault) 9.1 Glucose Level 237 mg/dL (70-99) Calcium Level 7.9 mg/dL (8.5-10.1) Phosphorus Level 6.3 mg/dL (2.6-4.7) Test 12/24/19 08:00 12/24/19 22:25 12/24/19 23:59 12/25/19 05:30 O2 Saturation 93 % (92-99) Arterial Blood pH 7.26 (7.35-7.45) Arterial Blood pCO2 at Patient Temp 38 mmHg (35-46) Arterial Blood pO2 at Patient Temp 76 mmHg (65-108) Arterial Blood HCO3 17 mmol/L (21-28) Arterial Blood Base Excess -10 mmol/L (-3-3) FiO2 70 Glucose (Fingerstick) 306 mg/dL (70-99) 301 mg/dL (70-99) 308 mg/dL (70-99) Sodium Level 128 mmol/L (136-145) Potassium Level 5.0 mmol/L (3.5-5.1) Chloride Level 92 mmol/L (98-107) Carbon Dioxide Level 18 mmol/L (21-32) Anion Gap 18 (6-14) Blood Urea Nitrogen 130 mg/dL (8-26) Creatinine 7.6 mg/dL (0.7-1.3) Estimated GFR (Cockcroft-Gault) 8.3 Glucose Level 314 mg/dL (70-99) Calcium Level 7.9 mg/dL (8.5-10.1) Test 12/25/19 09:40 O2 Saturation 94 % (92-99) Arterial Blood pH 7.28 (7.35-7.45) Arterial Blood pCO2 at Patient Temp 33 mmHg (35-46) Arterial Blood pO2 at Patient Temp 85 mmHg (65-108) Arterial Blood HCO3 15 mmol/L (21-28) Arterial Blood Base Excess -11 mmol/L (-3-3) FiO2 70 Laboratory Tests Test 12/24/19 22:25 12/24/19 23:59 12/25/19 05:30 12/25/19 09:40 Glucose (Fingerstick) 306 mg/dL (70-99) 301 mg/dL (70-99) 308 mg/dL (70-99) Sodium Level 128 mmol/L (136-145) Potassium Level 5.0 mmol/L (3.5-5.1) Chloride Level 92 mmol/L (98-107) Carbon Dioxide Level 18 mmol/L (21-32) Anion Gap 18 (6-14) Blood Urea Nitrogen 130 mg/dL (8-26) Creatinine 7.6 mg/dL (0.7-1.3) Estimated GFR (Cockcroft-Gault) 8.3 Glucose Level 314 mg/dL (70-99) Calcium Level 7.9 mg/dL (8.5-10.1) O2 Saturation 94 % (92-99) Arterial Blood pH 7.28 (7.35-7.45) Arterial Blood pCO2 at Patient Temp 33 mmHg (35-46) Arterial Blood pO2 at Patient Temp 85 mmHg (65-108) Arterial Blood HCO3 15 mmol/L (21-28) Arterial Blood Base Excess -11 mmol/L (-3-3) FiO2 70 Medications Active Scripts Medications Dose Route/Sig Max Daily Dose Days Date Category Dose Instructions Warfarin Sodium 3 Mg Tablet 1 Tab PO 1X 09/28/17 Reported Fluticasone Propionate Nasal [place] (Fluticasone Propionate) 16 Gm [place].susp 2 [place] NS DAILY 09/25/17 Reported last dos this am next dose tomorrow am (monday) Lubricant Eye Drops (Propylene Glycol) 10 Ml Drops 10 Ml OP [id number] 09/25/17 Reported last dose after lunch next dose with supper/ bedtime Lubricant Eye Drops (Carboxymethylcellulose Sodium) 1 Each Droperette 1 Each OP HS 09/25/17 Reported last dose last evening next dosetonight provided his own Glipizide 5 Mg Tablet 5 Mg PO DAILYWSUP 07/12/16 Reported last dose last night next dose tonight with supper Glipizide 5 Mg Tablet 2.5 Mg PO DAILY 07/12/16 Reported last dose this am (next dose tomorrow am monday) Loratadine 10 Mg Tablet 10 Mg PO 06/27/16 Reported last dose this am next dose tomorrow am(monday) Omeprazole 20 Mg Capsule.dr 20 Mg PO DAILY 06/27/16 Reported last dose this am next dose tomorrow am (monday) Ferrous Sulfate 325 Mg Tablet 1 Tab PO DAILY 06/27/16 Reported last dose this am next dose tonight Aspir 81 (Aspirin) 81 Mg Tablet.dr 81 Mg PO DAILY 06/27/16 Reported Amlodipine-Benazepril 5-10 Mg (Amlodipine Besylate/Benazepril) 1 Each Capsule 1 Cap PO DAILY 06/27/16 Reported last dos this am next dose tomorrow am (monday) Tamsulosin Hcl 0.4 Mg Cap.er.24h 1 Cap PO DAILY 10/06/14 Reported last dose this am next dose tomorrow am (monday) Simvastatin 20 Mg Tablet 1 Tab PO QHS 10/06/14 Reported last dose last evening next dose tonight Hydrochlorothiazide Tablet (Hydrochlorothiazide) 25 Mg Tablet 1 Tab PO DAILY 10/06/14 Reported last dos this am next dose tomorrow am (monday) Allopurinol 100 Mg Tablet 1 Tab PO DAILY 10/06/14 Reported last dose this am next dose tomorrow on monday Levothyroxine Sodium 50 Mcg Tablet 1 Tab PO DAILY 10/06/14 Reported last dose this am next dose tomorrow am (monday) Comments CXR 4/6 diffuse interstitial infiltrates bilateral, slightly better Impression . This is an 84-year-old, who presents with comorbidities including debility, diabetes, and chronic kidney disease on top of acute kidney disease with abnormal chest x-ray/ hypoxia/ RF 1. Acute respiratory failure secondary ARDS, worsening hypoxia and resp acidosis 2. Pneumonia, COVID-19 positive test (U07.1, COVID-19) with Acute Pneumonia (J12.89, Other viral pneumonia) (If respiratory failure or sepsis present, add as separate assessment) 3. diabetes 4. Abnormal chest x-ray, suspect superimposed bacterial pneumonia (gram-negative gram-positive), underlying viral pneumonia 5. Septic shock, off levoped 6. Protein malnutrition present upon admission 7. Acute kidney injury,worse 8. Metabolic acidosis due to BIA 9. Severe PCM Labs reviewed, chest x-ray reviewed Plan . Spoke with family member yesterday, about possibly withdrawing care, she was going to discuss it with other family members so far we have not heard anything Creatinine is worsening, patient not expected to survive Continue pressure control ventilation, ABG noted PRN paralytics sedation Prone positioning per protocol. Follow CXR and Labs s/p -hydroxychloroquine, Zithromax ( dc'd at day 5) Continue vancomycin and Zosyn DVT GI prophylaxis Nutritional support with TPN worsening renal function, follow renal rec.not a candidate for hemodialysis The above was discussed with RN and RT Total cumulative critical care time of 30 minutes reviewing data, labs, chest x- ray, and managing vent prognosis guarded/ DNR VISHNU CRUZ MD Dec 25, 2019 10:52
[2019-12-25] MEDS: TPN PER PHARMACY MC PRN ×2 (12:28→12:31)
--- NOTE | 2019-12-25 15:04 | PDOC ---
PROGRESS NOTES Chief Complaint Chief Complaint Covid 19 positive ARDS Respiratory failure requiring intubation and mechanical ventilation Acute renal failure secondary to vasomotor etiology most likely, worsening creatinine and minimal output. quite poor prognosis, going into multiorgan failure Normal anion gap acidosis Hypocalcemia Severe protein calorie malnutrition Normocytic anemia Pneumonia CKD stage 4 Debility Weakness Fevers Arthritis, diabetes, back surgery, knee surgery and thyroid surgery. Plan; Patient receiving linezolid and zosyn continue supportive measures vent management as per critical grounds caretaker prognosis guarded will discuss with [facility] consultant regarding possible transition to comfort measures treatment plan DVT prohpylaxis: lovenox COVID-19 CRITERIA: The patient was evaluated during the global COVID-19 pandemic, and that diagnosis was suspected/considered upon their initial presentation. Their evaluation, treatment and testing was consistent with current guidelines for patients who present with complaints or symptoms that may be related to COVID-19. History of Present Illness History of Present Illness 12/25/2019 Patient seen and examined in the ICU He remains mechanically ventilated no acute events reported overnight. Chart reviewed Solvent Mixer recs greatly appreciated Discussed with RN Vitals Vitals Vital Signs Date Time Temp Pulse Resp B/P (MAP) Pulse Ox O2 Delivery O2 Flow Rate FiO2 12/25/19 12:00 98.8 20 110/54 (72) Ventilator 98.8 12/25/19 12:00 15.0 12/25/19 11:40 98 12/25/19 11:00 37 Physical Exam General: Other (bucking the vent, we just ordered some paralytics) Heart: Regular rate, Normal S1, Normal S2, No murmurs, Other (tachycardic at 102 bpm distant S1-S2) Lungs: Crackles Abdomen: Soft Extremities: No clubbing, No cyanosis Skin: No rashes, No breakdown Labs LABS Laboratory Tests Test 12/24/19 22:25 12/24/19 23:59 12/25/19 05:30 12/25/19 09:40 Glucose (Fingerstick) 306 mg/dL (70-99) 301 mg/dL (70-99) 308 mg/dL (70-99) Sodium Level 128 mmol/L (136-145) Potassium Level 5.0 mmol/L (3.5-5.1) Chloride Level 92 mmol/L (98-107) Carbon Dioxide Level 18 mmol/L (21-32) Anion Gap 18 (6-14) Blood Urea Nitrogen 130 mg/dL (8-26) Creatinine 7.6 mg/dL (0.7-1.3) Estimated GFR (Cockcroft-Gault) 8.3 Glucose Level 314 mg/dL (70-99) Calcium Level 7.9 mg/dL (8.5-10.1) O2 Saturation 94 % (92-99) Arterial Blood pH 7.28 (7.35-7.45) Arterial Blood pCO2 at Patient Temp 33 mmHg (35-46) Arterial Blood pO2 at Patient Temp 85 mmHg (65-108) Arterial Blood HCO3 15 mmol/L (21-28) Arterial Blood Base Excess -11 mmol/L (-3-3) FiO2 70 Test 12/25/19 10:52 Glucose (Fingerstick) 291 mg/dL (70-99) Assessment and Plan Assessmemt and Plan Problems Medical Problems: (1) Bilateral pneumonia Status: Acute (2) Fever Status: Acute (3) Hypoglycemia Status: Acute (4) Renal insufficiency Status: Acute (5) Suspected 2019 novel coronavirus infection Status: Acute (6) Weakness Status: Acute Comment Review of Relevant I have reviewed the following items sammie (where applicable) has been applied. Labs Laboratory Tests Test 12/23/19 17:07 12/23/19 23:58 12/24/19 06:08 12/24/19 08:00 Glucose (Fingerstick) 205 mg/dL (70-99) 243 mg/dL (70-99) Sodium Level 130 mmol/L (136-145) Potassium Level 4.6 mmol/L (3.5-5.1) Chloride Level 94 mmol/L (98-107) Carbon Dioxide Level 19 mmol/L (21-32) Anion Gap 17 (6-14) Blood Urea Nitrogen 118 mg/dL (8-26) Creatinine 7.0 mg/dL (0.7-1.3) Estimated GFR (Cockcroft-Gault) 9.1 Glucose Level 237 mg/dL (70-99) Calcium Level 7.9 mg/dL (8.5-10.1) Phosphorus Level 6.3 mg/dL (2.6-4.7) O2 Saturation 93 % (92-99) Arterial Blood pH 7.26 (7.35-7.45) Arterial Blood pCO2 at Patient Temp 38 mmHg (35-46) Arterial Blood pO2 at Patient Temp 76 mmHg (65-108) Arterial Blood HCO3 17 mmol/L (21-28) Arterial Blood Base Excess -10 mmol/L (-3-3) FiO2 70 Test 12/24/19 22:25 12/24/19 23:59 12/25/19 05:30 12/25/19 09:40 Glucose (Fingerstick) 306 mg/dL (70-99) 301 mg/dL (70-99) 308 mg/dL (70-99) Sodium Level 128 mmol/L (136-145) Potassium Level 5.0 mmol/L (3.5-5.1) Chloride Level 92 mmol/L (98-107) Carbon Dioxide Level 18 mmol/L (21-32) Anion Gap 18 (6-14) Blood Urea Nitrogen 130 mg/dL (8-26) Creatinine 7.6 mg/dL (0.7-1.3) Estimated GFR (Cockcroft-Gault) 8.3 Glucose Level 314 mg/dL (70-99) Calcium Level 7.9 mg/dL (8.5-10.1) O2 Saturation 94 % (92-99) Arterial Blood pH 7.28 (7.35-7.45) Arterial Blood pCO2 at Patient Temp 33 mmHg (35-46) Arterial Blood pO2 at Patient Temp 85 mmHg (65-108) Arterial Blood HCO3 15 mmol/L (21-28) Arterial Blood Base Excess -11 mmol/L (-3-3) FiO2 70 Test 12/25/19 10:52 Glucose (Fingerstick) 291 mg/dL (70-99) Laboratory Tests Test 12/24/19 22:25 12/24/19 23:59 12/25/19 05:30 12/25/19 09:40 Glucose (Fingerstick) 306 mg/dL (70-99) 301 mg/dL (70-99) 308 mg/dL (70-99) Sodium Level 128 mmol/L (136-145) Potassium Level 5.0 mmol/L (3.5-5.1) Chloride Level 92 mmol/L (98-107) Carbon Dioxide Level 18 mmol/L (21-32) Anion Gap 18 (6-14) Blood Urea Nitrogen 130 mg/dL (8-26) Creatinine 7.6 mg/dL (0.7-1.3) Estimated GFR (Cockcroft-Gault) 8.3 Glucose Level 314 mg/dL (70-99) Calcium Level 7.9 mg/dL (8.5-10.1) O2 Saturation 94 % (92-99) Arterial Blood pH 7.28 (7.35-7.45) Arterial Blood pCO2 at Patient Temp 33 mmHg (35-46) Arterial Blood pO2 at Patient Temp 85 mmHg (65-108) Arterial Blood HCO3 15 mmol/L (21-28) Arterial Blood Base Excess -11 mmol/L (-3-3) FiO2 70 Test 12/25/19 10:52 Glucose (Fingerstick) 291 mg/dL (70-99) Microbiology 12/17/19 Blood Culture - Final, Complete NO GROWTH AFTER 5 DAYS Medications Current Medications Acetaminophen (Tylenol) 1,000 mg 1X ONCE PO ; Start 12/09/19 at 12:15; Stop 12/09/19 at 12:16; Status DC Sodium Chloride 1,000 ml @ 1,000 mls/hr Q1H IV Last administered on 12/09/19at 13:48; Start 12/09/19 at 12:01; Stop 12/09/19 at 13:00; Status DC Ceftriaxone Sodium (Rocephin) 1 gm 1X ONCE IVP Last administered on 12/09/19at 13:49; Start 12/09/19 at 13:30; Stop 12/09/19 at 13:31; Status DC Vancomycin HCl 250 ml @ 250 mls/hr 1X ONCE IV Last administered on 12/09/19at 13:49; Start 12/09/19 at 13:30; Stop 12/09/19 at 14:29; Status DC Dextrose (Dextrose 50%-Water Syringe) 12.5 gm 1X ONCE IV Last administered on 12/09/19at 13:48; Start 12/09/19 at 13:45; Stop 12/09/19 at 13:46; Status DC Sodium Polystyrene Sulfonate (Kayexalate) 15 gm 1X ONCE PO Last administered on 12/09/19at 14:35; Start 12/09/19 at 13:45; Stop 12/09/19 at 13:46; Status DC Sodium Chloride 1,000 ml @ 150 mls/hr Q6H40M IV Last administered on 12/10/19at 09:00; Start 12/09/19 at 13:46; Stop 12/10/19 at 13:45; Status DC Dextrose (Dextrose 50%-Water Syringe) 25 gm 1X ONCE IV Last administered on 12/09/19at 15:09; Start 12/09/19 at 15:00; Stop 12/09/19 at 15:02; Status DC Acetaminophen (Tylenol) 1,000 mg PRN Q6HRS PRN PO FEVER Last administered on 12/20/19at 12:51; Start 12/09/19 at 15:30 Acetaminophen (Tylenol) 1,000 mg PRN Q6HRS PRN PO FEVER; Start 12/09/19 at 15:30; Stop 12/09/19 at 18:00; Status DC Dextrose (Dextrose 50%-Water Syringe) 25 gm 1X ONCE IV Last administered on 12/09/19at 22:38; Start 12/09/19 at 22:30; Stop 12/09/19 at 22:31; Status DC Dextrose (Dextrose 50%-Water Syringe) 12.5 gm PRN Q15MIN PRN IV SEE COMMENTS Last administered on 12/12/19at 21:21; Start 12/10/19 at 00:30 Allopurinol (Zyloprim) 100 mg DAILY PO Last administered on 12/21/19 10:02; Start 12/10/19 at 17:00; Stop 12/22/19 at 08:05; Status DC Aspirin (Ecotrin) 81 mg DAILY PO Last administered on 12/25/19 09:10; Start 12/10/19 at 17:00 Ferrous Sulfate (Feosol) 325 mg DAILY08 PO Last administered on 12/25/19at 09:10; Start 12/10/19 at 17:00 Fluticasone Propionate (Flonase) 2 spray DAILY NS Last administered on at 09:00; Start 12/11/19 at 09:00; Stop 12/21/19 at 11:07; Status DC Glipizide (Glucotrol) 2.5 mg DAILYAC PO Last administered on 12/21/19 09:57; Start 12/11/19 at 07:30; Stop 12/21/19 at 11:07; Status DC Glipizide (Glucotrol) 5 mg DAILYWSUP PO Last administered on 12/10/19at 17:18; Start 12/10/19 at 17:00; Stop 12/11/19 at 08:03; Status DC Hydrochlorothiazide (Hydrodiuril) 25 mg DAILY PO Last administered on 12/16/19at 09:04; Start 12/10/19 at 17:00; Stop 12/16/19 at 12:52; Status DC Levothyroxine Sodium (Synthroid) 50 mcg DAILY06 PO Last administered on 12/21/19at 05:50; Start 12/11/19 at 06:00; Stop 12/21/19 at 11:07; Status DC Simvastatin (Zocor) 20 mg QHS PO Last administered on 12/11/19at 21:31; Start 12/10/19 at 21:00; Stop 12/13/19 at 11:28; Status DC Tamsulosin HCl (Flomax) 0.4 mg DAILY PO Last administered on 12/21/19at 09:58; Start 12/10/19 at 17:00; Stop 12/21/19 at 11:07; Status DC Warfarin Sodium (Coumadin) 3 mg 1X PO ; Start 12/10/19 at 16:00; Stop 12/10/19 at 16:44; Status DC Amlodipine Besylate (Norvasc) 5 mg DAILY PO Last administered on 12/24/19at 08:24; Start 12/10/19 at 17:00 Non-Formulary Medication (Carboxymethylcellulose Sodium (Lubricant Eye Drops)) 1 each HS OP ; Start 12/10/19 at 21:00; Status UNV Pantoprazole Sodium (Protonix) 40 mg DAILYAC PO Last administered on 12/16/19at 09:04; Start 12/10/19 at 16:30; Stop 12/17/19 at 07:44; Status DC Artificial Tears (Artificial Tears) 1 drop [id number] OU ; Start 12/10/19 at 17:00; Stop 12/10/19 at 16:44; Status DC Cetirizine HCl (ZyrTEC) 10 mg DAILY PO Last administered on 12/21/19at 09:57; Start 12/10/19 at 17:00; Stop 12/21/19 at 11:07; Status DC Warfarin Sodium (Coumadin Per Physician) 1 each PRN DAILY PRN MC SEE COMMENTS; Start 12/10/19 at 16:30; Stop 12/10/19 at 16:44; Status DC Ceftriaxone Sodium (Rocephin) 1 gm Q24H IVP Last administered on 12/12/19at 17:24; Start 12/10/19 at 18:00; Stop 12/13/19 at 09:07; Status DC Azithromycin 250 ml @ 250 mls/hr 1X ONCE IV ; Start 12/10/19 at 16:30; Stop 12/10/19 at 17:29; Status UNV Lisinopril (Prinivil) 10 mg DAILY PO Last administered on 12/18/19at 10:03; Start 12/10/19 at 17:00; Stop 12/18/19 at 11:12; Status DC Azithromycin 500 mg/Sodium Chloride 250 ml @ 250 mls/hr Q24H IV Last administered on 12/12/19at 17:21; Start 12/10/19 at 18:00; Stop 12/13/19 at 11:18; Status DC Carbidopa/Levodopa (Sinemet 25/100) 2 tab TID PO Last administered on 12/25/19at 09:10; Start 12/10/19 at 17:00 Lactobacillus Rhamnosus (Culturelle) 1 cap BID PO Last administered on 12/14/19at 20:48; Start 12/11/19 at 21:00; Stop 12/15/19 at 08:34; Status DC Acetaminophen (Tylenol Supp) 650 mg PRN Q6HRS PRN [place] MILD PAIN / TEMP Last administered on 12/15/19at 17:55; Start 12/12/19 at 07:45 Amino Acids/ Glycerin/ Electrolytes 1,000 ml @ 50 mls/hr Q20H IV Last administered on 12/15/19at 21:47; Start 12/12/19 at 10:15; Stop 12/16/19 at 21:59; Status DC Sodium Chloride 1,000 ml @ 75 mls/hr [id number] IV Last administered on 12/17/19at 09:22; Start 12/12/19 at 11:00; Stop 12/17/19 at 11:52; Status DC Enoxaparin Sodium (Lovenox 30mg Syringe) 30 mg Q24H SQ Last administered on 12/21/19at 12:42; Start 12/12/19 at 12:00; Stop 12/22/19 at 09:31; Status DC Hydroxychloroquine Sulfate (Plaquenil) 400 mg BID PO Last administered on 12/14/19at 20:48; Start 12/13/19 at 09:00; Stop 12/14/19 at 21:01; Status DC Hydroxychloroquine Sulfate (Plaquenil) 200 mg BID PO Last administered on 12/17/19at 22:59; Start 12/15/19 at 09:00; Stop 12/17/19 at 21:01; Status DC Piperacillin Sod/ Tazobactam Sod 4.5 gm/Sodium Chloride 100 ml @ 200 mls/hr Q6HRS IV ; Start 12/13/19 at 12:00; Status UNV Vancomycin HCl (Vanco Per Pharmacy) 1 each PRN DAILY PRN MC SEE COMMENTS Last administered on 12/18/19at 10:49; Start 12/13/19 at 09:00; Stop 12/19/19 at 14:26; Status DC Piperacillin Sod/ Tazobactam Sod 3.375 gm/Sodium Chloride 50 ml @ 100 mls/hr Q6HRS IV Last administered on 12/19/19at 11:39; Start 12/13/19 at 10:00; Stop 12/19/19 at 12:21; Status DC Vancomycin HCl 1.5 gm/Sodium Chloride 500 ml @ 250 mls/hr 1X ONCE IV Last administered on 12/13/19at 11:11; Start 12/13/19 at 10:00; Stop 12/13/19 at 11:59; Status DC Fentanyl Citrate 30 ml @ 2.5 mls/hr CONT PRN IV SEE PROTOCOL Last administered on 12/25/19at 08:28; Start 12/13/19 at 10:15 Chlorhexidine Gluconate (Peridex) 15 ml BID MM Last administered on 12/23/19at 08:36; Start 12/13/19 at 21:00; Stop 12/23/19 at 09:52; Status DC Morphine Sulfate (Morphine Sulfate) 2 mg PRN Q1HR PRN IV SEE COMMENTS.; Start 12/13/19 at 10:15 Morphine Sulfate (Morphine Sulfate) 4 mg PRN Q1HR PRN IV SEE COMMENTS. Last administered on 12/13/19at 12:40; Start 12/13/19 at 10:15 Propofol 100 ml @ 1.05 mls/hr CONT PRN IV SEE I/O RECORD Last administered on 12/16/19at 05:16; Start 12/13/19 at 10:30 Propofol 100 ml @ As Directed STK-MED ONCE IV ; Start 12/13/19 at 08:48; Stop 12/13/19 at 14:11; Status DC Propofol 100 ml @ As Directed STK-MED ONCE IV ; Start 12/13/19 at 09:33; Stop 12/13/19 at 14:12; Status DC Norepinephrine Bitartrate 8 mg/ Dextrose 258 ml @ 13.545 mls/ hr CONT PRN IV PER PROTOCOL Last administered on 12/24/19at 21:36; Start 12/13/19 at 15:30 Vancomycin HCl (Vancomycin Random Level) 1 each 1X ONCE MC Last administered on 12/14/19at 04:52; Start 12/14/19 at 05:00; Stop 12/14/19 at 05:01; Status DC Vancomycin HCl 1 gm/Sodium Chloride 250 ml @ 250 mls/hr Q48H IV Last adm inistered on 12/16/19at 10:42; Start 12/14/19 at 09:00; Stop 12/16/19 at 12:01; Status DC Vancomycin HCl (Vancomycin Trough Level) 1 each 1X ONCE MC Last administered on 12/16/19at 08:30; Start 12/16/19 at 08:30; Stop 12/16/19 at 08:31; Status DC Vecuronium [place] (Norcuron Bolus) 10 mg STK-MED ONCE IV ; Start 12/14/19 at 12:43; Stop 12/14/19 at 12:43; Status DC Vecuronium [place] (Norcuron Bolus) 6 mg 1X ONCE IV Last administered on 12/14/19at 12:55; Start 12/14/19 at 12:45; Stop 12/14/19 at 12:52; Status DC Azithromycin 250 mg/Sodium Chloride 250 ml @ 250 mls/hr Q24H IV Last administered on 12/19/19at 09:32; Start 12/15/19 at 10:00; Stop 12/19/19 at 14:25; Status DC Vecuronium [place] (Norcuron Bolus) 10 mg STK-MED ONCE IV ; Start 12/16/19 at 10:45; Stop 12/16/19 at 10:45; Status DC Vecuronium [place] (Norcuron Bolus) 6 mg 1X ONCE IV ; Start 12/16/19 at 11:15; Stop 12/16/19 at 11:16; Status DC Vancomycin HCl 1 gm/Sodium Chloride 250 ml @ 250 mls/hr Q36H IV Last administered on 12/19/19at 11:39; Start 12/17/19 at 23:00; Stop 12/19/19 at 14:25; Status DC Midazolam HCl 50 mg/Sodium Chloride 50 ml @ 1 mls/hr CONT PRN IV SEE I/O RECORD; Start 12/16/19 at 12:15; Stop 12/16/19 at 12:10; Status DC Midazolam HCl 100 mg/Sodium Chloride 100 ml @ 1 mls/hr CONT PRN IV SEE I/O RECORD Last administered on 12/25/19at 09:09; Start 12/16/19 at 12:15 Vancomycin HCl (Vancomycin Trough Level) 1 each 1X ONCE MC Last administered on 12/19/19at 09:47; Start 12/19/19 at 10:30; Stop 12/19/19 at 10:31; Status DC Info (Tpn Per Pharmacy) 1 each PRN DAILY PRN MC SEE COMMENTS Last administered on 12/25/19at 12:31; Start 12/16/19 at 13:00 Sodium Acetate 60 meq/Potassium Chloride 20 meq/ Potassium Phosphate 10 mmol/ Magnesium Sulfate 10 meq/Calcium Gluconate 10 meq/ Multivitamins 10 ml/Chromium/ Copper/Manganese/ Seleni/Zn 0.5 ml/ Total Parenteral Nutrition/Amino Acids/Dextrose 1,200 ml @ 50 mls/hr TPN CONT IV Last administered on 12/16/19at 22:24; Start 12/16/19 at 22:00; Stop 12/17/19 at 21:59; Status DC Pantoprazole Sodium (PROTONIX VIAL for IV PUSH) 40 mg DAILYAC IVP Last administered on 12/21/19at 09:56; Start 12/17/19 at 09:00; Stop 12/21/19 at 11:07; Status DC Vecuronium [place] (Norcuron Bolus) 6 mg Q4HRS PRN IV VENT ASYNCHRONY Last administered on 12/17/19at 11:46; Start 12/17/19 at 08:45 Sodium Bicarbonate (Sodium Bicarb Adult 8.4% Syr) 50 meq 1X ONCE IV Last administered on 12/17/19at 09:31; Start 12/17/19 at 08:45; Stop 12/17/19 at 08:47; Status DC Sodium Bicarbonate 50 meq/Sodium Chloride 1,050 ml @ 100 mls/hr [id number] IV Last administered on 12/20/19at 18:49; Start 12/17/19 at 12:30; Stop 12/21/19 at 08:00; Status DC Sodium Acetate 60 meq/Potassium Chloride 20 meq/ Potassium Phosphate 10 mmol/ Magnesium Sulfate 10 meq/Calcium Gluconate 10 meq/ Multivitamins 10 ml/Chromium/ Copper/Manganese/ Seleni/Zn 0.5 ml/ Total Parenteral Nutrition/Amino Acids/Dextrose/ Fat Emulsion Intravenous 1,200 ml @ 50 mls/hr TPN CONT IV Last administered on 12/17/19at 23:00; Start 12/17/19 at 22:00; Stop 12/18/19 at 21:59; Status DC Ascorbic Acid (Vitamin C) 500 mg DAILY PO Last administered on 12/21/19at 09:57; Start 12/17/19 at 15:00; Stop 12/21/19 at 11:07; Status DC Zinc Sulfate (Orazinc) 220 mg DAILY PO Last administered on 12/21/19at 09:57; Start 12/17/19 at 15:00; Stop 12/21/19 at 11:07; Status DC Metoclopramide HCl (Reglan Vial) 10 mg PRN Q6HRS PRN IVP NAUSEA/VOMITING; Start 12/18/19 at 09:15; Stop 12/18/19 at 09:06; Status DC Ondansetron HCl (Zofran) 4 mg PRN Q6HRS PRN IVP NAUSEA/VOMITING Last administered on 12/18/19at 09:55; Start 12/18/19 at 09:15 Sodium Chloride 500 ml @ 500 mls/hr 1X ONCE IV Last administered on 12/18/19at 09:15; Start 12/18/19 at 09:15; Stop 12/18/19 at 10:14; Status DC Metoclopramide HCl (Reglan Vial) 5 mg PRN Q6HRS PRN IVP NAUSEA/VOMITING, 2ND CHOICE Last administered on 12/18/19at 09:55; Start 12/18/19 at 09:15 Sodium Acetate 60 meq/Potassium Chloride 10 meq/ Potassium Phosphate 10 mmol/ Calcium Gluconate 5 meq/ Multivitamins 10 ml/Chromium/ Copper/Manganese/ Seleni/Zn 0.5 ml/ Total Parenteral Nutrition/Amino Acids/Dextrose/ Fat Emulsion Intravenous 1,200 ml @ 50 mls/hr TPN CONT IV Last administered on 12/18/19at 22:25; Start 12/18/19 at 22:00; Stop 12/19/19 at 21:59; Status DC Hydroxychloroquine Sulfate (Plaquenil) 200 mg BID PO Last administered on 12/18/19at 22:23; Start 12/18/19 at 11:00; Stop 12/18/19 at 21:01; Status DC Darbepoetin [place] (ARANESP for DIALYSIS PTS) 60 mcg [id number] SQ Last admi nistered on 12/19/19at 21:20; Start 12/19/19 at 21:00 Piperacillin Sod/ Tazobactam Sod 2.25 gm/Sodium Chloride 50 ml @ 100 mls/hr Q6HRS IV Last administered on 12/25/19at 14:47; Start 12/19/19 at 18:00 Sodium Acetate 60 meq/Potassium Chloride 10 meq/ Potassium Phosphate 10 mmol/ Calcium Gluconate 5 meq/ Multivitamins 10 ml/Chromium/ Copper/Manganese/ Seleni/Zn 0.5 ml/ Total Parenteral Nutrition/Amino Acids/Dextrose/ Fat Emulsion Intravenous 1,200 ml @ 50 mls/hr TPN CONT IV Last administered on 12/19/19at 21:20; Start 12/19/19 at 22:00; Stop 12/20/19 at 21:59; Status DC Linezolid/Dextrose 300 ml @ 300 mls/hr Q12HR IV Last administered on 12/25/19at 08:10; Start 12/19/19 at 21:00 Sodium Acetate 60 meq/Potassium Chloride 10 meq/ Potassium Phosphate 10 mmol/ Calcium Gluconate 5 meq/ Multivitamins 10 ml/Chromium/ Copper/Manganese/ Seleni/Zn 0.5 ml/ Total Parenteral Nutrition/Amino Acids/Dextrose/ Fat Emulsion Intravenous 1,200 ml @ 50 mls/hr TPN CONT IV Last administered on 12/20/19at 21:32; Start 12/20/19 at 22:00; Stop 12/21/19 at 21:59; Status DC Insulin Glargine (Lantus Syringe) 20 unit QHS SQ ; Start 12/20/19 at 17:00; Status Cancel Insulin Human Lispro (HumaLOG) 0-5 UNITS Q6HRS SQ Last administered on 12/25/19at 05:33; Start 12/20/19 at 18:00 Dextrose (Dextrose 50%-Water Syringe) 12.5 gm PRN Q15MIN PRN IV SEE COMMENTS; Start 12/20/19 at 16:45; Status Cancel Insulin Glargine (Lantus Syringe) 20 unit DAILY@1800 SQ Last administered on 12/20/19at 17:36; Start 12/20/19 at 18:00; Stop 12/21/19 at 11:07; Status DC Dextrose (Dextrose 50%-Water Syringe) 12.5 gm PRN Q15MIN PRN IV SEE COMMENTS; Start 12/20/19 at 17:15; Status UNV Insulin Glargine (Lantus Syringe) 24 unit DAILY@1800 SQ Last administered on 12/24/19at 22:31; Start 12/21/19 at 18:00 Sodium Acetate 60 meq/Potassium Chloride 10 meq/ Potassium Phosphate 10 mmol/ Calcium Gluconate 5 meq/ Multivitamins 10 ml/Chromium/ Copper/Manganese/ Seleni/Zn 0.5 ml/ Total Parenteral Nutrition/Amino Acids/Dextrose/ Fat Emulsion Intravenous 1,200 ml @ 50 mls/hr TPN CONT IV Last administered on 12/21/19at 21:27; Start 12/21/19 at 22:00; Stop 12/22/19 at 21:59; Status DC Furosemide 100 mg/ Sodium Chloride 100 ml @ 5 mls/hr Q20H IV Last administered on 12/22/19at 08:58; Start 12/21/19 at 15:00; Stop 12/23/19 at 08:52; Status DC Sodium Bicarbonate (Sodium Bicarb Adult 8.4% Syr) 50 meq Q2HR IV Last administered on 12/21/19at 16:57; Start 12/21/19 at 16:00; Stop 12/21/19 at 18:01; Status DC Calcium Chloride 2000 mg/Sodium Chloride 120 ml @ 240 mls/hr 1X ONCE IV Last administered on 12/21/19at 15:48; Start 12/21/19 at 15:15; Stop 12/21/19 at 15:44; Status DC Albumin Human 100 ml @ 100 mls/hr PRN Q8HRS PRN IV for MAP Less than 65; Start 12/21/19 at 15:15 Heparin Sodium (Porcine) (Heparin Sodium) 5,000 unit Q12H SQ Last administered on 12/24/19at 21:28; Start 12/22/19 at 09:00 Heparin Sodium (Porcine) (Heparin Sodium) 5,000 unit Q12HR SQ ; Start 12/22/19 at 21:00; Status Cancel Sodium Acetate 60 meq/Potassium Phosphate 10 mmol/ Multivitamins 10 ml/Chromium/ Copper/Manganese/ Seleni/Zn 0.5 ml/ Total Parenteral Nutrition/Amino Acids/Dextrose/ Fat Emulsion Intravenous 1,200 ml @ 50 mls/hr TPN CONT IV Last administered on 12/22/19at 21:05; Start 12/22/19 at 22:00; Stop 12/23/19 at 21:59; Status DC Sodium Bicarbonate (Sodium Bicarb Adult 8.4% Syr) 100 meq 1X ONCE IV Last administered on 12/23/19at 09:37; Start 12/23/19 at 08:45; Stop 12/23/19 at 08:46; Status DC Sodium Acetate 60 meq/Potassium Phosphate 10 mmol/ Multivitamins 10 ml/Chromium/ Copper/Manganese/ Seleni/Zn 0.5 ml/ Total Parenteral Nutrition/Amino Ac ids/Dextrose/ Fat Emulsion Intravenous 1,056 ml @ 44 mls/hr TPN CONT IV Last administered on 12/23/19at 21:43; Start 12/23/19 at 22:00; Stop 12/24/19 at 21:59; Status DC Sodium Acetate 80 meq/Multivitamins 10 ml/Chromium/ Copper/Manganese/ Seleni/Zn 0.5 ml/ Total Parenteral Nutrition/Amino Acids/Dextrose/ Fat Emulsion Intravenous 1,056 ml @ 44 mls/hr TPN CONT IV Last administered on 12/24/19at 21:36; Start 12/24/19 at 22:00; Stop 12/25/19 at 21:59 Sodium Acetate 80 meq/Multivitamins 10 ml/Chromium/ Copper/Manganese/ Seleni/Zn 0.5 ml/ Insulin Human Regular 10 unit/ Total Parenteral Nutrition/Amino Acids/Dextrose/ Fat Emulsion Intravenous 1,056 ml @ 44 mls/hr TPN CONT IV ; Start 12/25/19 at 22:00; Stop 12/26/19 at 21:59 Active Scripts Active Reported Carbidopa-Levodopa 25-100 Tab (Carbidopa/Levodopa) 1 Each Tablet 50-200 PO TID Fluticasone Propionate Nasal [place] (Fluticasone Propionate) 16 Gm [place].susp 2 [place] NS DAILY last dos this am next dose tomorrow am (monday) Glipizide 5 Mg Tablet 5 Mg PO DAILYWSUP last dose last night next dose tonight with supper Glipizide 5 Mg Tablet 2.5 Mg PO DAILY last dose this am (next dose tomorrow am monday) Loratadine 10 Mg Tablet 10 Mg PO last dose this am next dose tomorrow am(monday) Omeprazole 20 Mg Capsule.dr 20 Mg PO DAILY last dose this am next dose tomorrow am (monday) Ferrous Sulfate 325 Mg Tablet 1 Tab PO DAILY last dose this am next dose tonight Amlodipine-Benazepril 5-10 Mg (Amlodipine Besylate/Benazepril) 1 Each Capsule 1 Cap PO DAILY last dos this am next dose tomorrow am (monday) Tamsulosin Hcl 0.4 Mg Cap.er.24h 1 Cap PO DAILY last dose this am next dose tomorrow am (monday) Simvastatin 20 Mg Tablet 1 Tab PO QHS last dose last evening next dose tonight Hydrochlorothiazide Tablet (Hydrochlorothiazide) 25 Mg Tablet 1 Tab PO DAILY last dos this am next dose tomorrow am (monday) Allopurinol 100 Mg Tablet 1 Tab PO DAILY last dose this am next dose tomorrow on monday Levothyroxine Sodium 50 Mcg Tablet 1 Tab PO DAILY last dose this am next dose tomorrow am (monday) Vitals/I & O Vital Sign - Last 24 Hours 12/24/19 12/24/19 12/24/19 12/24/19 16:00 16:00 16:10 18:09 Pulse 40 Resp 20 20 B/P (MAP) 133/59 (83) Pulse Ox 94 O2 Delivery Ventilator Mechanical Ventilator Ventilator Ventilator O2 Flow Rate 15.0 12/24/19 12/24/19 12/24/19 12/24/19 18:34 19:00 20:00 20:00 Temp 94.5 94.5 Pulse 32 30 36 Resp 20 20 20 B/P (MAP) 100/60 (73) 121/51 (74) 99/52 (68) Pulse Ox 95 91 O2 Delivery Ventilator Ventilator Ventilator Mechanical Ventilator 12/24/19 12/24/19 12/24/19 12/24/19 20:32 21:00 22:00 23:00 Pulse 32 32 35 Resp 20 20 20 B/P (MAP) 112/48 (69) 106/44 (64) 99/54 (69) Pulse Ox 94 95 94 95 O2 Delivery Ventilator Ventilator Ventilator Ventilator 12/24/19 12/25/19 12/25/19 12/25/19 23:45 00:00 00:00 01:00 Temp 94.3 94.3 Pulse 32 30 Resp 20 20 B/P (MAP) 114/52 (72) 113/48 (69) Pulse Ox 94 95 93 O2 Delivery Ventilator Mechanical Ventilator Ventilator Ventilator 12/25/19 12/25/19 12/25/19 12/25/19 02:00 03:00 04:00 04:00 Pulse 32 30 32 Resp 20 20 19 B/P (MAP) 122/54 (76) 104/53 (70) 108/52 (70) Pulse Ox 93 94 94 O2 Delivery Ventilator Ventilator Mechanical Ventilator Ventilator 12/25/19 12/25/19 12/25/19 12/25/19 04:08 05:00 06:00 07:00 Pulse 38 36 40 Resp 21 20 20 B/P (MAP) 141/65 (90) 127/58 (81) 119/54 (75) Pulse Ox 94 92 96 95 O2 Delivery Ventilator Ventilator Ventilator Ventilator 12/25/19 12/25/19 12/25/19 12/25/19 08:00 08:00 08:28 08:50 Temp 98.5 98.5 Pulse 38 Resp 20 20 B/P (MAP) 106/46 (66) Pulse Ox 88 92 O2 Delivery Mechanical Ventilator Ventilator Ventilator Ventilator O2 Flow Rate 15.0 12/25/19 12/25/19 12/25/19 12/25/19 09:00 09:00 10:00 11:00 Temp 98.8 98.8 Pulse 38 34 38 37 Resp 20 20 20 B/P (MAP) 117/50 (72) 90/60 109/49 (69) Pulse Ox 95 91 92 O2 Delivery Ventilator Ventilator Ventilator 12/25/19 12/25/19 12/25/19 11:40 12:00 12:00 Temp 98.8 98.8 Resp 20 B/P (MAP) 110/54 (72) Pulse Ox 98 O2 Delivery Ventilator Mechanical Ventilator Ventilator O2 Flow Rate 15.0 Intake and Output 12/24/19 12/24/19 12/25/19 15:00 23:00 07:00 Intake Total 350 ml 1102 ml 836 ml Output Total 5 ml 15 ml 0 ml Balance 345 ml 1087 ml 836 ml Nutrition Consultation Dietary Evaluation: Recommendations by RD: Dietary education by RD, Increase Calorie Intake, PPN/TPN Comments: Continue w/TPN per current order: 225 g dextrose, 85 g AA, 20 g lipids Asked RN (Stacey) about possibly starting TFs - RN report pt's gut function still altered, not appropriate for TFs at this time. Expected Outcomes/Goals: New goal 12/16: Nutrition support to meet >65% estimated nutrition needs while pt remains intubated - met, goal ongoing Interpretation of weight loss: >5% in 1 month Malnutrition Findings: Food and Nutrition Intake (Sev: <50% est energy req 5days Weight Status: Appropriate DANTE CAGE MD Dec 25, 2019 15:04
[2019-12-25] MEDS: HEPARIN for SUB-Q USE 5,000 UNIT/ML VIAL. SQ SCH (15:25)
[2019-12-25] MEDS ORDERED: fentaNYL STANDARD PCA 600 MCG/30 ML PCA.SYRING IV ONE (15:47)
--- NOTE | 2019-12-25 17:41 | PDOC3 ---
Discharge Summary Visit Information Date of Admission: Dec 09, 2019 Date of Discharge: Dec 25, 2019 Admitting Diagnosis Comment: Pneumonia in an elderly male who also has mental status change, electrolyte disturbances and acute on chronic renal failure. Final Diagnosis Covid 19 positive ARDS Respiratory failure requiring intubation and mechanical ventilation Acute renal failure secondary to vasomotor etiology most likely, worsening creatinine and minimal output. quite poor prognosis, going into multiorgan failure Normal anion gap acidosis Hypocalcemia Severe protein calorie malnutrition Normocytic anemia Pneumonia thrombocytopenia secondary to underlying infection Brief Hospital Course Allergies Allergies Coded Allergies Type Severity Reaction Last Updated Verified I S O L A T I O N "AIRBOURNE" Allergy Unknown 12/15/19 Yes I S O L A T I O N *CONTACT* Allergy Unknown 12/05/19 Yes YONG Inhibitors Adverse Reaction Intermediate 12/05/19 Yes ARB-Angiotensin Receptor Antagonist Adverse Reaction Intermediate 12/05/19 Yes Vital Signs Vital Signs Date Time Temp Pulse Resp B/P (MAP) Pulse Ox O2 Delivery O2 Flow Rate FiO2 12/25/19 12:00 98.8 20 110/54 (72) Ventilator 98.8 12/25/19 12:00 15.0 12/25/19 11:40 98 12/25/19 11:00 37 Lab Results Laboratory Tests Test 12/23/19 23:58 12/24/19 06:08 12/24/19 08:00 12/24/19 22:25 Glucose (Fingerstick) 243 mg/dL (70-99) 306 mg/dL (70-99) Sodium Level 130 mmol/L (136-145) Potassium Level 4.6 mmol/L (3.5-5.1) Chloride Level 94 mmol/L (98-107) Carbon Dioxide Level 19 mmol/L (21-32) Anion Gap 17 (6-14) Blood Urea Nitrogen 118 mg/dL (8-26) Creatinine 7.0 mg/dL (0.7-1.3) Estimated GFR (Cockcroft-Gault) 9.1 Glucose Level 237 mg/dL (70-99) Calcium Level 7.9 mg/dL (8.5-10.1) Phosphorus Level 6.3 mg/dL (2.6-4.7) O2 Saturation 93 % (92-99) Arterial Blood pH 7.26 (7.35-7.45) Arterial Blood pCO2 at Patient Temp 38 mmHg (35-46) Arterial Blood pO2 at Patient Temp 76 mmHg (65-108) Arterial Blood HCO3 17 mmol/L (21-28) Arterial Blood Base Excess -10 mmol/L (-3-3) FiO2 70 Test 12/24/19 23:59 12/25/19 05:30 12/25/19 09:40 12/25/19 10:52 Glucose (Fingerstick) 301 mg/dL (70-99) 308 mg/dL (70-99) 291 mg/dL (70-99) Sodium Level 128 mmol/L (136-145) Potassium Level 5.0 mmol/L (3.5-5.1) Chloride Level 92 mmol/L (98-107) Carbon Dioxide Level 18 mmol/L (21-32) Anion Gap 18 (6-14) Blood Urea Nitrogen 130 mg/dL (8-26) Creatinine 7.6 mg/dL (0.7-1.3) Estimated GFR (Cockcroft-Gault) 8.3 Glucose Level 314 mg/dL (70-99) Calcium Level 7.9 mg/dL (8.5-10.1) O2 Saturation 94 % (92-99) Arterial Blood pH 7.28 (7.35-7.45) Arterial Blood pCO2 at Patient Temp 33 mmHg (35-46) Arterial Blood pO2 at Patient Temp 85 mmHg (65-108) Arterial Blood HCO3 15 mmol/L (21-28) Arterial Blood Base Excess -11 mmol/L (-3-3) FiO2 70 Laboratory Tests Test 12/24/19 22:25 12/24/19 23:59 12/25/19 05:30 12/25/19 09:40 Glucose (Fingerstick) 306 mg/dL (70-99) 301 mg/dL (70-99) 308 mg/dL (70-99) Sodium Level 128 mmol/L (136-145) Potassium Level 5.0 mmol/L (3.5-5.1) Chloride Level 92 mmol/L (98-107) Carbon Dioxide Level 18 mmol/L (21-32) Anion Gap 18 (6-14) Blood Urea Nitrogen 130 mg/dL (8-26) Creatinine 7.6 mg/dL (0.7-1.3) Estimated GFR (Cockcroft-Gault) 8.3 Glucose Level 314 mg/dL (70-99) Calcium Level 7.9 mg/dL (8.5-10.1) O2 Saturation 94 % (92-99) Arterial Blood pH 7.28 (7.35-7.45) Arterial Blood pCO2 at Patient Temp 33 mmHg (35-46) Arterial Blood pO2 at Patient Temp 85 mmHg (65-108) Arterial Blood HCO3 15 mmol/L (21-28) Arterial Blood Base Excess -11 mmol/L (-3-3) FiO2 70 Test 12/25/19 10:52 Glucose (Fingerstick) 291 mg/dL (70-99) Brief Hospital Course Mr. Cortes is a 84 old male who presented with pnaumonia and was tested for COVID given his initial presentation with creatinine elevation low white blood cell count and a T-max of 100.7 saturation on room air was 90%. His acute kidney injury was believed to be vasomotor and dehydration in nature at the beginning of his hospital stay nevertheless later we will find out that the patient was affected by COVID 19. Patient was started on broad-spectrum antibiotics as per our pulmonary consultant nurse and on December 12, 2019 the patient was given hydroxychloroquine and his antibiotics were broadened to vancomycin and Zosyn, December 13, 2019 the patient unfortunately deteriorated to the point that he needed mechanical ventilation and at this point the patient results from the call with test were not available. At this point our consultant nurse considered Tocilizumab if the patient will continue to deteriorate Intubation note is as follows [facility] [address], [place] [address] PHYSICIAN SERVICES Progress Notes : [id number] Signed Patient: HAIDER CORTES Acct:[id number] Unit: [id number] : 1935 Loc: 1 [facility]/Bed: 1041 Age/Sex: 84 / M ADM Status: ADM IN ADM Date: 12/09/19 Provider Note Provider Note Late entry-- Called to intubate patient this AM for respiratory failure. FiO2 80% in ICU and O2 sat mid 90's. Inspired O2 increased to 100% as I arrived at bedside. Suspect possible COVID case. Full PPE worn for intubation. BP and pulse essentially WNL. IV meds-Propofol 70 mg and Anectine 120 mg. Intubated with ease first attempt with Glidescope and #7.5 cuffed ETT. +ETCO2. Taped at 24 cm. CXR pending. Placed on vert per Pulm. service. MD PRANAY Martin DAVID L MD Dec 13, 2019 15:13 Signed By: DORIAN PIRES MD <<Signature on File>> Signed Date/Time:12/13/191512 <<Signature on File>> 12/13/191512 cc: EDIE CRISTOBAL III DO; DORIAN PIRES MD; DELANO LLANES MD ~ He continue to receive all the supportive measures in the ICU with mechanical ventilation that were needed he was continued on broad-spectrum antibiotics he went into septic shock and placed on Levophed fortunately enough patient was able to be weaned off and on December 18, 2019 the patient was no longer requiring pressors. Ventilatory support was quite difficult and he was unable to be weaned off. Nephrology consultation was requested and Dr. Dinh recommended discontinuing YONG inhibitor's and diuretics is provided him for relief of his acute kidney injury with creatinine unfortunately not improving, his renal function continued to deteriorate and on the day of him passing his creatinine went up to 7.6. The acute kidney injury was most likely ATN due to the generalized illness associated with coronavirus infection he was certainly a poor candidate for hemodialysis and he did not have a significant response with Lasix in regards of the urine output. The patient developed ARDS as a c onsequence as well and unfortunately succumbed to his septic process from the coronavirus he was transitioned to comfort measures only given the lack of response to maximal medical therapy and our pulmonary critical patient care assistant had a conversation with family members and they decided to transition to a comfort measures only treatment plan. He passed peacefully on 12/25/2019 at 1 520. Discharge process 32 minutes Assessment Assessment Absent breath sounds Absent cardiac sound Not responding to noxious stimuli Discharge Information Condition at Discharge: / Disposition/Orders: Scheduled Allopurinol (Allopurinol) 100 Mg Tablet, 1 TAB PO DAILY for kidney/gout, #30 Ref 5 (Reported) last dose this am next dose tomorrow on monday Entered as Reported by: YON OROZCO on 10/06/141940 Last Action: Continued on 12/10/19 1600 by [facility] Amlodipine Besylate/Benazepril (Amlodipine-Benazepril 5-10 Mg) 1 Each Capsule, 1 CAP PO DAILY for blood pressure, #90 Ref 3 (Reported) last dos this am next dose tomorrow am (monday) Entered as Reported by: JENNYFER PEREZ on 06/27/161644 Last Action: Converted on 12/10/191599 by [facility] Carbidopa/Levodopa (Carbidopa-Levodopa 25-100 Tab) 1 Each Tablet, 50-200 PO TID for parkinsons, (Reported) Entered as Reported by: [facility] on 12/10/191645 Last Action: Contin[facility] on 12/10/191647 [facility] Ferrous Sulfate (Ferrous Sulfate) 325 Mg Tablet, 1 TAB PO DAILY for supplement, #30 Ref 3 (Reported) last dose this am next dose tonight Entered as Reported by: JENNYFER PEREZ on 06/27/161644 Last Action: Continued on 12/10/19 1600 [facility] Fluticasone Propionate (Fluticasone Propionate Nasal [place]) 16 Gm [place].susp, 2 SPRAY NS DAILY for allergies, #1 Ref 11 (Reported) last dos this am next dose tomorrow am (monday) Entered as Reported by: AMADO AGUILERA on 09/25/171824 Last Action: Continued on 12/10/19 1600 by [facility] Glipizide (Glipizide) 5 Mg Tablet, 2.5 MG PO DAILY for blood sugar, (Reported) last dose this am (next dose tomorrow am monday) Entered as Reported by: EMMA HENRY on 07/12/16630 Last Action: [facility] 12[facility]10/[facility] (Glipizide) 5 Mg Tablet, 5 MG PO DAILYWSUP for blood sugar, (Reported) last dose last night next dose tonight with supper Entered as Reported by: EMMA HENRY on 07/12/16630 Last Action: Continued on 12/10/19 1600 [facility] Hydrochlorothiazide (Hydrochlorothiazide Tablet ) 25 Mg Tablet, 1 TAB PO DAILY for water pill, #30 Ref 5 (Reported) last dos this am next dose tomorrow am (monday) Entered as Reported by: YON OROZCO on 10/06/141940 Last Action: Continued on 12/10/19 1600 by [facility] Levothyroxine Sodium (Levothyroxine Sodium) 50 Mcg Tablet, 1 TAB PO DAILY for thyroid, #30 Ref 5 (Reported) last dose this am next dose tomorrow am (monday) Entered as Reported by: YON OROZCO on 10/06/141939 Last Action: Continued on 12/10/191599 by [facility] Omeprazole (Omeprazole) 20 Mg Capsule.dr, 20 MG PO DAILY for stomach, (Reported) last dose this am next dose tomorrow am (monday) Entered as Reported by: JENNYFER PEREZ on 06/27/161644 Last Action: Converted on 12/10/191599 by [facility] Simvastatin (Simvastatin) 20 Mg Tablet, 1 TAB PO QHS for cholesterol, #30 Ref 5 (Reported) last dose last evening next dose tonight Entered as Reported by: YON OROZCO on 10/06/141940 Last Action: Continued on 12/10/19 1600 by [facility] Tamsulosin Hcl (Tamsulosin Hcl) 0.4 Mg Cap.er.24h, 1 CAP PO DAILY, #30 Ref 5 (Reported) last dose this am next dose tomorrow am (monday) Entered as Reported by: OYN OROZCO on 10/06/141940 Last Action: Continued on 12/10/191599 by [facility] Miscellaneous Medications Loratadine (Loratadine) 10 Mg Tablet, 10 MG PO for allergies, (Reported) last dose this am next dose tomorrow am(monday) Entered as Reported by: JENNYFER PEREZ on 06/27/161644 Last Action: Converted on 12/10/191599 by DANTE Kruger MD Dec 25, 2019 17:41
[2019-12-25] MEDS ORDERED: TOTAL PARENTERAL NUTRITION IV SCH ×7 (22:00)
[2019-12-25] MEDS ORDERED: AMINO ACID IV SCH ×7 (22:00)
[2019-12-25] MEDS ORDERED: [UNRECOGNIZED DRUG - OTHER] IV SCH ×7 (22:00)
[2019-12-25] MEDS ORDERED: DEXTROSE 70% IV SCH ×7 (22:00)
== END 2019-12-25 16:30 | disposition expired | DRG 870 ==
LOC: ER 11:42 → 2 SOUTH 14:49 → ED HOLD 14:50 → 2 SOUTH 18:56 → 1 WEST ICU 12-13 01:30
PROVIDERS: ADMIT Internal Medicine; ATTEND Internal Medicine
PROC: 5A1955Z Respiratory Ventilation, Greater than 96 Consecutive Hours (ICD-10-PCS; principal; 2019-12-13)
PROC: 0BH17EZ Insertion of Endotracheal Airway into Trachea, Via Natural or Artificial Opening (ICD-10-PCS; 2019-12-13)
PROC: 5A09357 Assistance with Respiratory Ventilation, Less than 24 Consecutive Hours, Continuous Positive Airway Pressure (ICD-10-PCS; 2019-12-13)
PROC: 02HV33Z Insertion of Infusion Device into Superior Vena Cava, Percutaneous Approach (ICD-10-PCS; 2019-12-16)
PROC: B548ZZA Ultrasonography of Superior Vena Cava, Guidance (ICD-10-PCS; 2019-12-16)
DX: A41.9 Sepsis, unspecified organism (principal); U07.1 COVID-19; E43 Unspecified severe protein-calorie malnutrition; J12.89 Other viral pneumonia; J96.01 Acute respiratory failure with hypoxia; N17.0 Acute kidney failure with tubular necrosis; R65.21 Severe sepsis with septic shock; E87.1 Hypo-osmolality and hyponatremia; I13.0 Hypertensive heart and chronic kidney disease with heart failure and stage 1 through stage 4 chronic kidney disease, or unspecified chronic kidney disease; J95.851 Ventilator associated pneumonia; N18.4 Chronic kidney disease, stage 4 (severe); D64.9 Anemia, unspecified; D69.59 Other secondary thrombocytopenia; D72.810 Lymphocytopenia; E03.9 Hypothyroidism, unspecified; E11.22 Type 2 diabetes mellitus with diabetic chronic kidney disease; E11.649 Type 2 diabetes mellitus with hypoglycemia without coma; E78.5 Hyperlipidemia, unspecified; K21.9 Gastro-esophageal reflux disease without esophagitis; E83.51 Hypocalcemia; E86.0 Dehydration; E87.5 Hyperkalemia; G20 Parkinson's disease; I50.9 Heart failure, unspecified; M10.9 Gout, unspecified; T68.XXXA Hypothermia, initial encounter; M19.90 Unspecified osteoarthritis, unspecified site; Y84.8 Other medical procedures as the cause of abnormal reaction of the patient, or of later complication, without mention of misadventure at the time of the procedure; Z78.9 Other specified health status; Z79.84 Long term (current) use of oral hypoglycemic drugs; Z79.899 Other long term (current) drug therapy; Z82.49 Family history of ischemic heart disease and other diseases of the circulatory system; Z85.46 Personal history of malignant neoplasm of prostate; Z88.8 Allergy status to other drugs, medicaments and biological substances
CPT/HCPCS: 36415; 36569; 36600; 71045; 74018; 80048; 80053; 80069; 80202; 81001; 82248; 82550; 82803; 82805; 82962; 83605; 83690; 83735; 83880; 84100; 84478; 84484; 85007; 85025; 85379; 85384; 85610; 85730; 87040; 87449; 87635; 87804; 93005; 94003; 94660; 94760; 96361; 96365; 96375; C9113; J0456; J0610; J0696; J0882; J1644; J1650; J1815; J1940; J2020; J2250; J2270; J2405; J2543; J2704; J2765; J3010; J3370; J3475; J3480; J3490; J7030; J7040; J7042; J7050; J7060; P9612; 99291-25; G0378